=== PATIENT | female | born 1980 | race Caucasian/White ===

== ENCOUNTER 2020-07-23 09:45 | Inpatient (IN) | payer MEDICARE, MEDICAID ==
[2020-07-23] MEDS ORDERED: Azithromycin 500 MG in Sodium Chloride 0.9% 250 ML IV SCH (10:30)
[2020-07-23] MEDS ORDERED: Lactated Ringers 1,000 ML IV SCH (10:30)
[2020-07-23] MEDS ORDERED: cefTRIAXone 1 GM in Sodium Chloride 0.9% 50 ML IV ONE (10:35)
--- NOTE | 2020-07-23 10:40 | EDM.PDOC ---
ED HPI GENERAL MEDICAL PROBLEM - General Chief Complaint: Respiratory Problem Stated Complaint: SOB Time Seen by Provider: 07/23/20 10:18 Source of Information: Reports: Patient, Old Records, RN Notes Reviewed History Limitations: Reports: No Limitations - History of Present Illness INITIAL COMMENTS - FREE TEXT/NARRATIVE: 40-year-old female presents emergency department today complaint of shortness of breath, she has been feeling short of breath the last couple days however the last 24 hours has gotten particularly worse she is felt feverish and chilled at home she is a member of a [employer] and she was recently tested for COVID yesterday by a virtual visit unfortunately those results are not available. She states over the last 24 hours feeling more short of breath she did not use oxygen at home no cough no sputum production does have a history of pneumonia she denies any exposures does have some chest pain - Related Data Allergies Allergy/AdvReac Type Severity Reaction Status Date / Time divalproex sodium Allergy Other Verified 07/23/20 10:24 [From Depakote] haloperidol Allergy Other Verified 07/23/20 10:24 pork derived (porcine) Allergy Other Verified 07/23/20 10:24 risperidone Allergy Other Verified 07/23/20 10:24 Sulfa (Sulfonamide Allergy Cannot Verified 07/23/20 10:24 Antibiotics) Remember Home Meds: Home Meds Citalopram Hydrobromide [Celexa] 40 mg PO DAILY 07/23/20 [History] Gabapentin [Neurontin] 400 mg PO TID 07/23/20 [History] Ibuprofen 800 mg PO BID 07/23/20 [History] LORazepam [Ativan] 1 mg PO TID 07/23/20 [History] OLANZapine [Olanzapine] 15 mg PO DAILY 07/23/20 [History] Omeprazole 20 mg PO DAILY 07/23/20 [History] cloZAPine [Clozapine] 200 mg PO BEDTIME 07/23/20 [History] estradioL [Estradiol] 0.5 mg PO DAILY 07/23/20 [History] metFORMIN [Glucophage XR] 750 mg PO DAILY 07/23/20 [History] rOPINIRole [Requip] 1 mg PO BEDTIME 07/23/20 [History] tiZANidine 2 mg PO TID 07/23/20 [History] Past Medical History Cardiovascular History: Reports: High Cholesterol, Hypertension Respiratory History: Reports: Pneumonia, Recurrent Other Respiratory History: hospitalized with AFR11/2019 Gastrointestinal History: Reports: GERD Musculoskeletal History: Reports: Other (See Below) Other Musculoskeletal History: plantar fascitis. chronic left shoulder painchronic right knee pain Psychiatric History: Reports: Depression, Schizophrenia, Other (See Below) Other Psychiatric History: catatonia. insomnia Endocrine/Metabolic History: Reports: Diabetes, Type II, Obesity/BMI 30+ Hematologic History: Reports: Other (See Below) Other Hematologic History: vitamin D deficency Dermatologic History: Reports: Other (See Below) Other Dermatologic History: rash - Infectious Disease History Infectious Disease History: Reports: None - Past Surgical History Head Surgeries/Procedures: Reports: None Respiratory Surgical History: Reports: Other (See Below) Other Respiratory Surgeries/Procedures: bronchoscopy Female Surgical History: Reports: Hysterectomy Musculoskeletal Surgical History: Reports: Arthroscopic Knee Social & Family History - Tobacco Use Smoking Status *Q: Former Smoker ED ROS GENERAL - Review of Systems Review Of Systems: See Below Constitutional: Reports: Fever, Chills, Weakness HEENT: Reports: No Symptoms Respiratory: Reports: Shortness of Breath, Pleuritic Chest Pain. Denies: Cough, Sputum Cardiovascular: Reports: Chest Pain, Dyspnea on Exertion GI/Abdominal: Reports: No Symptoms : Reports: No Symptoms Musculoskeletal: Reports: No Symptoms Skin: Reports: No Symptoms Neurological: Reports: No Symptoms ED EXAM, GENERAL - Physical Exam Exam: See Below Exam Limited By: No Limitations General Appearance: Alert, Mild Distress Eye Exam: Bilateral Eye: Normal Inspection Throat/Mouth: No Airway Compromise, Other (Mucosa is dry) Head: Atraumatic, Normocephalic Neck: Normal Inspection, Supple, Non-Tender, Full Range of Motion Respiratory/Chest: No Respiratory Distress, Decreased Breath Sounds, Rhonchi (Left side) Cardiovascular: No Murmur, Tachycardia GI/Abdominal: Soft, Non-Tender Extremities: No Pedal Edema Course - Vital Signs Last Recorded V/S: Last Vital Signs Temp 99.0 F 07/23/20 10:10 Pulse 102 H 07/23/20 11:46 Resp 20 07/23/20 11:46 BP 127/85 07/23/20 11:46 Pulse Ox 89 L 07/23/20 11:46 - Orders/Labs/Meds Orders: Active Orders 24 hr Category Date Time Status Vital Signs [RC] Q1H Care 07/23/20 10:30 Active CULTURE BLOOD [BC] Urgent Lab 07/23/20 10:30 Ordered CULTURE BLOOD [BC] Urgent Lab 07/23/20 11:20 Received UA W/MICROSCOPIC [URIN] Urgent Lab 07/23/20 10:29 Ordered Azithromycin [Zithromax] 500 mg Med 07/23/20 10:30 Active Sodium Chloride 0.9% [Normal Saline] 250 ml IV Q24H Iopamidol [Isovue-370 (76%)] Med 07/23/20 12:30 Active 100 ml IV . DIRECTED Sodium Chloride 0.9% [Normal Saline] 1,000 ml Med 07/23/20 10:45 Active IV ASDIRECTED Sodium Chloride 0.9% [Saline Flush] Med 07/23/20 12:20 Active 10 ml FLUSH ONETIME PRN Blood Culture x2 Reflex Set [OM.PC] Urgent Oth 07/23/20 10:30 Ordered Isolation [COMM] Routine Oth 07/23/20 10:34 Ordered Isolation [COMM] Stat Oth 07/23/20 10:30 Ordered Medication Orders Azithromycin 500 mg/ Sodium (Chloride) 250 mls @ 250 mls/hr IV Q24H [facility] Last Admin: 07/23/20 11:42 Dose: 250 mls/hr Documented by: PREILOR Sodium Chloride (Normal Saline) 1,000 mls @ 999 mls/hr IV ASDIRECTED [facility] Last Admin: 07/23/20 11:41 Dose: 999 mls/hr Documented by: PREILOR Iopamidol (Isovue-370 (76%)) 100 ml IV . DIRECTED [facility] Last Admin: 07/23/20 14:00 Dose: 100 ml Documented by: MALIA Sodium Chloride (Saline Flush) 10 ml FLUSH ONETIME PRN PRN Reason: PER RADIOLOGY PROTOCOL Last Admin: 07/23/20 14:00 Dose: 10 ml Documented by: MALIA Labs: Laboratory Tests 07/23/20 07/23/20 07/23/20 Range/Units 10:55 10:58 10:58 WBC (4.5-11.0) K/uL RBC (3.30-5.50) M/uL Hgb (12.0-15.0) g/dL Hct (36.0-48.0) % MCV (80-98) fL MCH (27-31) pg MCHC (32-36) % Plt Count (150-400) K/uL Neut % (Auto) (36-66) % Lymph % (Auto) (24-44) % [place] % (Auto) (2-6) % Eos % (Auto) (2-4) % Baso % (Auto) (0-1) % ABG Hemoglobin (12.0-16.0) g/dL ABG Oxyhemoglobin % ABG Carboxyhemoglobin (0.0-1.6) % ABG Methemoglobin % VBG pH (7.350-7.450) VBG pCO2 mm/Hg VBG pO2 mm/Hg VBG HCO3 mmol/L VBG Total CO2 mmol/L VBG O2 Saturation VBG O2 Content %vol VBG Base Excess mm/L O2 Delivery Device Sodium (140-148) mmol/L Potassium (3.6-5.2) mmol/L Chloride (100-108) mmol/L Carbon Dioxide (21-32) mmol/L Anion Gap (5.0-14.0) mmol/L BUN (7-18) mg/dL Creatinine (0.6-1.0) mg/dL Est Cr Clr Drug Dosing mL/min Estimated GFR (MDRD) (>60) Glucose (74-106) mg/dL Lactic Acid (0.4-2.0) mmol/L Calcium (8.5-10.1) mg/dL Phosphorus 2.6 (2.5-4.9) mg/dL Magnesium 1.8 (1.8-2.4) mg/dL Total Bilirubin (0.2-1.0) mg/dL AST (15-37) U/L ALT (12-78) U/L Alkaline Phosphatase (46-116) U/L Lactate Dehydrogenase 314 H (82-234) U/L Troponin I (0.000-0.056) ng/mL C-Reactive Protein (0.0-0.3) mg/dL Total Protein (6.4-8.2) g/dL Albumin (3.4-5.0) g/dL Globulin (2.3-3.5) g/dL Albumin/Globulin Ratio (1.2-2.2) Procalcitonin ng/mL SARS-CoV-2 RNA (BAILEY) Negative (NEGATIVE) 07/23/20 07/23/20 07/23/20 Range/Units 10:58 10:58 10:58 WBC 18.4 H (4.5-11.0) K/uL RBC 4.41 (3.30-5.50) M/uL Hgb 13.5 (12.0-15.0) g/dL Hct 41.2 (36.0-48.0) % MCV 93 (80-98) fL MCH 31 (27-31) pg MCHC 33 (32-36) % Plt Count 317 (150-400) K/uL Neut % (Auto) 88 H (36-66) % Lymph % (Auto) 7 L (24-44) % [place] % (Auto) 5 (2-6) % Eos % (Auto) 1 L (2-4) % Baso % (Auto) 0 (0-1) % ABG Hemoglobin (12.0-16.0) g/dL ABG Oxyhemoglobin % ABG Carboxyhemoglobin (0.0-1.6) % ABG Methemoglobin % VBG pH (7.350-7.450) VBG pCO2 mm/Hg VBG pO2 mm/Hg VBG HCO3 mmol/L VBG Total CO2 mmol/L VBG O2 Saturation VBG O2 Content %vol VBG Base Excess mm/L O2 Delivery Device Sodium 140 (140-148) mmol/L Potassium 4.6 (3.6-5.2) mmol/L Chloride 102 (100-108) mmol/L Carbon Dioxide 25 (21-32) mmol/L Anion Gap 12.8 (5.0-14.0) mmol/L BUN 10 (7-18) mg/dL Creatinine 0.9 (0.6-1.0) mg/dL Est Cr Clr Drug Dosing 73.27 mL/min Estimated GFR (MDRD) > 60 (>60) Glucose 174 H (74-106) mg/dL Lactic Acid 2.6 H (0.4-2.0) mmol/L Calcium 8.9 (8.5-10.1) mg/dL Phosphorus (2.5-4.9) mg/dL Magnesium (1.8-2.4) mg/dL Total Bilirubin 0.5 (0.2-1.0) mg/dL AST 29 (15-37) U/L ALT 34 (12-78) U/L Alkaline Phosphatase 109 (46-116) U/L Lactate Dehydrogenase (82-234) U/L Troponin I (0.000-0.056) ng/mL C-Reactive Protein 5.66 H (0.0-0.3) mg/dL Total Protein 6.5 (6.4-8.2) g/dL Albumin 3.5 (3.4-5.0) g/dL Globulin 3.0 (2.3-3.5) g/dL Albumin/Globulin Ratio 1.2 (1.2-2.2) Procalcitonin ng/mL SARS-CoV-2 RNA (BAILEY) (NEGATIVE) 07/23/20 07/23/20 07/23/20 Range/Units 10:58 10:58 11:24 WBC (4.5-11.0) K/uL RBC (3.30-5.50) M/uL Hgb (12.0-15.0) g/dL Hct (36.0-48.0) % MCV (80-98) fL MCH (27-31) pg MCHC (32-36) % Plt Count (150-400) K/uL Neut % (Auto) (36-66) % Lymph % (Auto) (24-44) % [place] % (Auto) (2-6) % Eos % (Auto) (2-4) % Baso % (Auto) (0-1) % ABG Hemoglobin 14.1 (12.0-16.0) g/dL ABG Oxyhemoglobin 84.2 % ABG Carboxyhemoglobin 3.0 H (0.0-1.6) % ABG Methemoglobin 1.2 % VBG pH 7.397 (7.350-7.450) VBG pCO2 45.7 mm/Hg VBG pO2 55.0 mm/Hg VBG HCO3 27.6 mmol/L VBG Total CO2 24.3 mmol/L VBG O2 Saturation 87.9 VBG O2 Content 16.6 %vol VBG Base Excess 2.6 mm/L O2 Delivery Device Nasal cannula Sodium (140-148) mmol/L Potassium (3.6-5.2) mmol/L Chloride (100-108) mmol/L Carbon Dioxide (21-32) mmol/L Anion Gap (5.0-14.0) mmol/L BUN (7-18) mg/dL Creatinine (0.6-1.0) mg/dL Est Cr Clr Drug Dosing mL/min Estimated GFR (MDRD) (>60) Glucose (74-106) mg/dL Lactic Acid (0.4-2.0) mmol/L Calcium (8.5-10.1) mg/dL Phosphorus (2.5-4.9) mg/dL Magnesium (1.8-2.4) mg/dL Total Bilirubin (0.2-1.0) mg/dL AST (15-37) U/L ALT (12-78) U/L Alkaline Phosphatase (46-116) U/L Lactate Dehydrogenase (82-234) U/L Troponin I < 0.017 (0.000-0.056) ng/mL C-Reactive Protein (0.0-0.3) mg/dL Total Protein (6.4-8.2) g/dL Albumin (3.4-5.0) g/dL Globulin (2.3-3.5) g/dL Albumin/Globulin Ratio (1.2-2.2) Procalcitonin < 0.05 ng/mL SARS-CoV-2 RNA (BAILEY) (NEGATIVE) Meds: Medications Generic Name Dose Route Start Last Admin Trade Name Freq PRN Reason Stop Dose Admin Azithromycin 500 mg/ Sodium 250 mls @ 250 mls/hr 07/23/20 10:30 07/23/20 11:42 Chloride IV 250 mls/hr Q24H LESLEY Administration Sodium Chloride 1,000 mls @ 999 mls/hr 07/23/20 10:45 07/23/20 11:41 Normal Saline IV 999 mls/hr ASDIRECTED LESLEY Administration Iopamidol 100 ml 07/23/20 12:30 07/23/20 14:00 Isovue-370 (76%) IV 100 ml . DIRECTED LESLEY Administration Sodium Chloride 10 ml 07/23/20 12:20 07/23/20 14:00 Saline Flush FLUSH 10 ml ONETIME PRN Administration PER RADIOLOGY PROTOCOL Discontinued Medications Generic Name Dose Route Start Last Admin Trade Name Freq PRN Reason Stop Dose Admin Lactated Ringer's 1,000 mls @ 999 mls/hr 07/23/20 10:30 Ringers, Lactated IV ASDIRECTED LESLEY Ceftriaxone Sodium 1 gm/ 50 mls @ 100 mls/hr 07/23/20 10:35 07/23/20 11:43 Sodium Chloride IV 07/23/20 11:04 100 mls/hr ONETIME ONE Administration Sodium Chloride 100 mls @ 3 mls/sec 07/23/20 12:20 07/23/20 14:00 Normal Saline IV 07/23/20 12:21 3 mls/sec ONETIME ONE Administration Departure - Departure Time of Disposition: 14:42 Disposition: Admitted As Inpatient 64 Condition: Fair Clinical Impression: Pneumonia Qualifiers: Pneumonia type: due to unspecified organism Laterality: bilateral Lung location: lower lobe of lung Qualified Code(s): J18.9 - Pneumonia, unspecified organism - Discharge Information Referrals: Crystal Loza MD [Primary Care Provider] - Forms: ED Department Discharge Sepsis Event Note (ED) - Evaluation Sepsis Screening Result: Possible Sepsis Risk - Focused Exam Vital Signs: Vital Signs Temp Pulse Resp BP Pulse Ox 07/23/20 11:46 102 H 20 127/85 89 L 07/23/20 10:30 104 H 22 H 131/92 H 92 L 07/23/20 10:10 99.0 F 116 H 22 H 139/91 H 84 L - My Orders Last 24 Hours: My Active Orders 07/23/20 10:29 UA W/MICROSCOPIC [URIN] Urgent 07/23/20 10:30 Vital Signs [RC] Q1H CULTURE BLOOD [BC] Urgent Azithromycin [Zithromax] 500 mg Sodium Chloride 0.9% [Normal Saline] 250 ml IV Q24H Blood Culture x2 Reflex Set [OM.PC] Urgent Isolation [COMM] Stat 07/23/20 10:34 Isolation [COMM] Routine 07/23/20 10:45 Sodium Chloride 0.9% [Normal Saline] 1,000 ml IV ASDIRECTED 07/23/20 11:20 CULTURE BLOOD [BC] Urgent 07/23/20 12:20 Sodium Chloride 0.9% [Saline Flush] 10 ml FLUSH ONETIME PRN 07/23/20 12:30 Iopamidol [Isovue-370 (76%)] 100 ml IV . DIRECTED - Assessment/Plan Last 24 Hours: My Active Orders 07/23/20 10:29 UA W/MICROSCOPIC [URIN] Urgent 07/23/20 10:30 Vital Signs [RC] Q1H CULTURE BLOOD [BC] Urgent Azithromycin [Zithromax] 500 mg Sodium Chloride 0.9% [Normal Saline] 250 ml IV Q24H Blood Culture x2 Reflex Set [OM.PC] Urgent Isolation [COMM] Stat 07/23/20 10:34 Isolation [COMM] Routine 07/23/20 10:45 Sodium Chloride 0.9% [Normal Saline] 1,000 ml IV ASDIRECTED 07/23/20 11:20 CULTURE BLOOD [BC] Urgent 07/23/20 12:20 Sodium Chloride 0.9% [Saline Flush] 10 ml FLUSH ONETIME PRN 07/23/20 12:30 Iopamidol [Isovue-370 (76%)] 100 ml IV . DIRECTED Plan: Assessment Acuity = acute Site and laterality = bilateral community-acquired pneumonia Etiology = probable bacterial cause Manifestations = hypoxia Location of injury = Home Lab values = WBC elevated 18.4 consistent leukocytosis, venous pH 7.39 venous CO2 40 5.7V PO2 55 venous bicarb 27.1 lactic acid normal 2.6 LDH slightly elevated 314 troponin was negative CRP elevated 5.66 procalcitonin was negative COVID was negative influenza a and B- blood cultures pending CT scan describes ammonia above Plan Call discussed case hospitalist on-call at 1430 currently agreed to come and evaluate the patient emergency department for admission, thus far she has been given 1 g Rocephin 1 L fluids and 500 mg azithromycin This note was dictated using [employer] voice recognition software please call with any questions on syntax or grammar.
[2020-07-23] MEDS ORDERED: Sodium Chloride 0.9% 1,000 ML IV SCH (10:45)
[2020-07-23] MEDS ORDERED: Sodium Chloride 0.9% 10 ML Syringe FLUSH PRN (12:20)
[2020-07-23] MEDS ORDERED: Sodium Chloride 0.9% 100 ML IV ONE (12:20)
[2020-07-23] MEDS ORDERED: Iopamidol 755 Mg/ML 100 ML Bottle IV SCH (12:30)
--- NOTE | 2020-07-23 12:31 | CR ---
CHEST: Portable 07/23/2020 at 11:03 AM CLINICAL HISTORY:Hypoxia COMPARISON:None FINDINGS: Heart size pulmonary vascularity is normal. There is patchy density in both infrahilar regions left greater than right. This is suspect for pneumonia. There are no effusions Impression: Patchy density in both infrahilar regions left greater than right is suspect for bilateral pneumonia.
--- NOTE | 2020-07-23 14:14 | CT ---
Ang Chest CLINICAL HISTORY: Hypoxia TECHNIQUE: Thin section axial contiguous tomographic sections were taken through the chest after bolus IV iodinated contrast administration. Coronal and sagittal images were reconstructed. Auto dosage reduction and iterative reconstruction techniques employed. FINDINGS: Resolution is somewhat diminished due to patient body habitus. There are some groundglass opacities in both upper lobes right greater than left. There is some patchy infiltrate in the left lower lobe. There are no filling defects in the main pulmonary arteries or primary branching arteries. The smaller branching vessels are obscured by artifact. There is no disc greet the vessel cut off. Aorta is free of aneurysm or dissection No mediastinal mass or suspicious lymphadenopathy is identified. IMPRESSION: Limited study due to beam attenuation artifact Bilateral upper lobe groundglass opacities suggest pneumonitis Patchy bilateral lower lobe opacities suggest pneumonia. This is greater on the left Viral or atypical pneumonia is not excluded
--- NOTE | 2020-07-23 15:24 | PCM.HP.2 ---
H&P History of Present Illness - General Date of Service: 07/23/20 Admit Problem/Dx: Admission Diagnosis/Problem Admission Diagnosis/Problem Pneumonia Source of Information: Patient, Provider, RN Notes Reviewed History Limitations: Reports: No Limitations - History of Present Illness Initial Comments - Free Text/Narative: Ms. Shane is a 40-year-old woman who was admitted through the emergency department with shortness of breath weakness and fever secondary to bilateral pn eumonia with sepsis and hypoxia. She has not felt well over the past 4 days with progressive shortness of breath and weakness. She denies much in the way of cough, fever, or chills. She was seen and evaluated in the clinic yesterday, and was noted to have no infiltrates. COVID test was obtained during the clinic visit but results are not yet available. She returned home but experienced further shortness of breath and presented to the emergency department this morning. Chest x-ray suggested infiltrates and she was found to be hypoxic with an elevated white count. CT scan of the chest with contrast showed no evidence of pulmonary emboli but did identify bilateral infiltrates. [place] to have sepsis with tachycardia, modest elevation in lactic acid level, and elevated white blood cell count. She has been started on appropriate antibiotics in the emergency department and blood cultures have been obtained. She is also been given vigorous IV fluid replacement per sepsis protocol. She was found to be hypoxic and is currently on supplemental oxygen at 4 L/min via nasal cannula with adequate oxygenation. - Related Data Allergies/Adverse Reactions: Allergies Allergy/AdvReac Type Severity Reaction Status Date / Time divalproex sodium Allergy Other Verified 07/23/20 10:24 [From Depakote] haloperidol Allergy Other Verified 07/23/20 10:24 pork derived (porcine) Allergy Other Verified 07/23/20 10:24 risperidone Allergy Other Verified 07/23/20 10:24 Sulfa (Sulfonamide Allergy Cannot Verified 07/23/20 10:24 Antibiotics) Remember Home Medications: Home Meds Citalopram Hydrobromide [Celexa] 40 mg PO DAILY 07/23/20 [History] Gabapentin [Neurontin] 400 mg PO TID 07/23/20 [History] Ibuprofen 800 mg PO BID 07/23/20 [History] LORazepam [Ativan] 1 mg PO TID 07/23/20 [History] OLANZapine [Olanzapine] 15 mg PO DAILY 07/23/20 [History] Omeprazole 20 mg PO DAILY 07/23/20 [History] cloZAPine [Clozapine] 200 mg PO BEDTIME 07/23/20 [History] estradioL [Estradiol] 0.5 mg PO DAILY 07/23/20 [History] metFORMIN [Glucophage XR] 750 mg PO DAILY 07/23/20 [History] rOPINIRole [Requip] 1 mg PO BEDTIME 07/23/20 [History] tiZANidine 2 mg PO TID 07/23/20 [History] Past Medical History Cardiovascular History: Reports: High Cholesterol, Hypertension Respiratory History: Reports: Pneumonia, Recurrent Other Respiratory History: hospitalized with [id number] Gastrointestinal History: Reports: GERD Musculoskeletal History: Reports: Other (See Below) Other Musculoskeletal History: plantar fascitis. chronic left shoulder painchronic right knee pain Psychiatric History: Reports: Depression, Schizophrenia, Other (See Below) Other Psychiatric History: catatonia. insomnia Endocrine/Metabolic History: Reports: Diabetes, Type II, Obesity/BMI 30+ Hematologic History: Reports: Other (See Below) Other Hematologic History: vitamin D deficency Dermatologic History: Reports: Other (See Below) Other Dermatologic History: rash - Infectious Disease History Infectious Disease History: Reports: None - Past Surgical History Head Surgeries/Procedures: Reports: None Respiratory Surgical History: Reports: Other (See Below) Other Respiratory Surgeries/Procedures: bronchoscopy Female Surgical History: Reports: Hysterectomy Musculoskeletal Surgical History: Reports: Arthroscopic Knee Social & Family History - Tobacco Use Smoking Status *Q: Former Smoker Used Tobacco, but Quit: Yes Month/Year Tobacco Last Used: 15 years ago - Caffeine Use Caffeine Use: Reports: Soda - Recreational Drug Use Recreational Drug Use: No H&P Review of Systems - Review of Systems: Review Of Systems: See Below General: Reports: Malaise, Weakness. Denies: Fever, Chills HEENT: Reports: No Symptoms Pulmonary: Reports: Shortness of Breath. Denies: Wheezing, Pleuritic Chest Pain, Cough, Sputum, Hemoptysis Cardiovascular: Reports: Dyspnea on Exertion, Lightheadedness. Denies: Chest Pain, Palpitations, Orthopnea, PND, Edema Gastrointestinal: Reports: No Symptoms Genitourinary: Reports: Abnormal Menses Musculoskeletal: Reports: No Symptoms Skin: Reports: No Symptoms Psychiatric: Reports: No Symptoms Neurological: Reports: No Symptoms Hematologic/Lymphatic: Reports: No Symptoms Immunologic: Reports: No Symptoms Exam - Exam Exam: See Below - Vital Signs Vital Signs: Last Vital Signs Temp 208.4 F H 07/23/20 14:30 Pulse 107 H 07/23/20 14:30 Resp 18 07/23/20 14:30 BP 144/96 H 07/23/20 14:30 Pulse Ox 92 L 07/23/20 14:30 Weight: 272 lb - Exam Quality Assessment: Supplemental Oxygen, DVT Prophylaxis General: Alert, Oriented, Cooperative, Moderate Distress HEENT: Conjunctiva Clear, Hearing Intact, Mucosa Moist & [place], Normal Nasal Septum, Posterior Pharynx Clear, Pupils Equal Neck: Supple, Trachea Midline, +2 Carotid Pulse wo Bruit Lungs: Clear to Auscultation. No: Crackles, Rales, Rhonchi, Wheezing Cardiovascular: Regular Rhythm, Normal S1, Normal S2, Tachycardia. No: Systolic Murmur, Diastolic Murmur GI/Abdominal Exam: Soft, Non-Tender, No Organomegaly, No Distention Back Exam: Normal Inspection, Full Range of Motion Extremities: Non-Tender, No Pedal Edema Skin: Warm, Dry, Intact Neurological: Cranial Nerves Intact, Strength Equal Bilateral, Normal Speech, Normal Tone, Sensation Intact. No: Focal Deficit Neuro Extensive - Mental Status: Alert, Oriented x3, Normal Mood/Affect, Normal Cognition, Memory Intact - Patient Data Lab Results Last 24 hrs: Laboratory Results - last 24 hr 07/23/20 07/23/20 07/23/20 Range/Units 10:29 10:55 10:58 WBC (4.5-11.0) K/uL RBC (3.30-5.50) M/uL Hgb (12.0-15.0) g/dL Hct (36.0-48.0) % MCV (80-98) fL MCH (27-31) pg MCHC (32-36) % Plt Count (150-400) K/uL Neut % (Auto) (36-66) % Lymph % (Auto) (24-44) % Simpson % (Auto) (2-6) % Eos % (Auto) (2-4) % Baso % (Auto) (0-1) % ABG Hemoglobin (12.0-16.0) g/dL ABG Oxyhemoglobin % ABG Carboxyhemoglobin (0.0-1.6) % ABG Methemoglobin % VBG pH (7.350-7.450) VBG pCO2 mm/Hg VBG pO2 mm/Hg VBG HCO3 mmol/L VBG Total CO2 mmol/L VBG O2 Saturation VBG O2 Content %vol VBG Base Excess mm/L O2 Delivery Device Sodium (140-148) mmol/L Potassium (3.6-5.2) mmol/L Chloride (100-108) mmol/L Carbon Dioxide (21-32) mmol/L Anion Gap (5.0-14.0) mmol/L BUN (7-18) mg/dL Creatinine (0.6-1.0) mg/dL Est Cr Clr Drug Dosing mL/min Estimated GFR (MDRD) (>60) Glucose (74-106) mg/dL Lactic Acid (0.4-2.0) mmol/L Calcium (8.5-10.1) mg/dL Phosphorus 2.6 (2.5-4.9) mg/dL Magnesium 1.8 (1.8-2.4) mg/dL Total Bilirubin (0.2-1.0) mg/dL AST (15-37) U/L ALT (12-78) U/L Alkaline Phosphatase (46-116) U/L Lactate Dehydrogenase (82-234) U/L Troponin I (0.000-0.056) ng/mL C-Reactive Protein (0.0-0.3) mg/dL Total Protein (6.4-8.2) g/dL Albumin (3.4-5.0) g/dL Globulin (2.3-3.5) g/dL Albumin/Globulin Ratio (1.2-2.2) Procalcitonin ng/mL Urine Color Yellow (YELLOW) Urine Appearance Clear (CLEAR) Urine pH 7.0 (5.0-8.0) Ur Specific [place] 1.020 (1.008-1.030) Urine Protein Negative (NEGATIVE) mg/dL Urine Glucose (UA) 100 H (NEGATIVE) mg/dL Urine Ketones Negative (NEGATIVE) mg/dL Urine Occult Blood Negative (NEGATIVE) Urine Nitrite Negative (NEGATIVE) Urine Bilirubin Negative (NEGATIVE) Urine Urobilinogen 1.0 (0.2-1.0) EU/dL Ur Leukocyte Esterase Negative (NEGATIVE) Urine RBC 0-5 (0-5) Urine WBC 0-5 (0-5) Ur Epithelial Cells Rare Amorphous Sediment Rare Urine Bacteria Rare Urine Mucus Not seen SARS-CoV-2 RNA (BAILEY) Negative (NEGATIVE) 07/23/20 07/23/20 07/23/20 Range/Units 10:58 10:58 10:58 WBC 18.4 H (4.5-11.0) K/uL RBC 4.41 (3.30-5.50) M/uL Hgb 13.5 (12.0-15.0) g/dL Hct 41.2 (36.0-48.0) % MCV 93 (80-98) fL MCH 31 (27-31) pg MCHC 33 (32-36) % Plt Count 317 (150-400) K/uL Neut % (Auto) 88 H (36-66) % Lymph % (Auto) 7 L (24-44) % Simpson % (Auto) 5 (2-6) % Eos % (Auto) 1 L (2-4) % Baso % (Auto) 0 (0-1) % ABG Hemoglobin (12.0-16.0) g/dL ABG Oxyhemoglobin % ABG Carboxyhemoglobin (0.0-1.6) % ABG Methemoglobin % VBG pH (7.350-7.450) VBG pCO2 mm/Hg VBG pO2 mm/Hg VBG HCO3 mmol/L VBG Total CO2 mmol/L VBG O2 Saturation VBG O2 Content %vol VBG Base Excess mm/L O2 Delivery Device Sodium 140 (140-148) mmol/L Potassium 4.6 (3.6-5.2) mmol/L Chloride 102 (100-108) mmol/L Carbon Dioxide 25 (21-32) mmol/L Anion Gap 12.8 (5.0-14.0) mmol/L BUN 10 (7-18) mg/dL Creatinine 0.9 (0.6-1.0) mg/dL Est Cr Clr Drug Dosing 73.27 mL/min Estimated GFR (MDRD) > 60 (>60) Glucose 174 H (74-106) mg/dL Lactic Acid (0.4-2.0) mmol/L Calcium 8.9 (8.5-10.1) mg/dL Phosphorus (2.5-4.9) mg/dL Magnesium (1.8-2.4) mg/dL Total Bilirubin 0.5 (0.2-1.0) mg/dL AST 29 (15-37) U/L ALT 34 (12-78) U/L Alkaline Phosphatase 109 (46-116) U/L Lactate Dehydrogenase 314 H (82-234) U/L Troponin I (0.000-0.056) ng/mL C-Reactive Protein 5.66 H (0.0-0.3) mg/dL Total Protein 6.5 (6.4-8.2) g/dL Albumin 3.5 (3.4-5.0) g/dL Globulin 3.0 (2.3-3.5) g/dL Albumin/Globulin Ratio 1.2 (1.2-2.2) Procalcitonin ng/mL Urine Color (YELLOW) Urine Appearance (CLEAR) Urine pH (5.0-8.0) Ur Specific [place] (1.008-1.030) Urine Protein (NEGATIVE) mg/dL Urine Glucose (UA) (NEGATIVE) mg/dL Urine Ketones (NEGATIVE) mg/dL Urine Occult Blood (NEGATIVE) Urine Nitrite (NEGATIVE) Urine Bilirubin (NEGATIVE) Urine Urobilinogen (0.2-1.0) EU/dL Ur Leukocyte Esterase (NEGATIVE) Urine RBC (0-5) Urine WBC (0-5) Ur Epithelial Cells Amorphous Sediment Urine Bacteria Urine Mucus SARS-CoV-2 RNA (BAILEY) (NEGATIVE) 07/23/20 07/23/20 07/23/20 Range/Units 10:58 10:58 10:58 WBC (4.5-11.0) K/uL RBC (3.30-5.50) M/uL Hgb (12.0-15.0) g/dL Hct (36.0-48.0) % MCV (80-98) fL MCH (27-31) pg MCHC (32-36) % Plt Count (150-400) K/uL Neut % (Auto) (36-66) % Lymph % (Auto) (24-44) % Simpson % (Auto) (2-6) % Eos % (Auto) (2-4) % Baso % (Auto) (0-1) % ABG Hemoglobin (12.0-16.0) g/dL ABG Oxyhemoglobin % ABG Carboxyhemoglobin (0.0-1.6) % ABG Methemoglobin % VBG pH (7.350-7.450) VBG pCO2 mm/Hg VBG pO2 mm/Hg VBG HCO3 mmol/L VBG Total CO2 mmol/L VBG O2 Saturation VBG O2 Content %vol VBG Base Excess mm/L O2 Delivery Device Sodium (140-148) mmol/L Potassium (3.6-5.2) mmol/L Chloride (100-108) mmol/L Carbon Dioxide (21-32) mmol/L Anion Gap (5.0-14.0) mmol/L BUN (7-18) mg/dL Creatinine (0.6-1.0) mg/dL Est Cr Clr Drug Dosing mL/min Estimated GFR (MDRD) (>60) Glucose (74-106) mg/dL Lactic Acid 2.6 H (0.4-2.0) mmol/L Calcium (8.5-10.1) mg/dL Phosphorus (2.5-4.9) mg/dL Magnesium (1.8-2.4) mg/dL Total Bilirubin (0.2-1.0) mg/dL AST (15-37) U/L ALT (12-78) U/L Alkaline Phosphatase (46-116) U/L Lactate Dehydrogenase (82-234) U/L Troponin I < 0.017 (0.000-0.056) ng/mL C-Reactive Protein (0.0-0.3) mg/dL Total Protein (6.4-8.2) g/dL Albumin (3.4-5.0) g/dL Globulin (2.3-3.5) g/dL Albumin/Globulin Ratio (1.2-2.2) Procalcitonin < 0.05 ng/mL Urine Color (YELLOW) Urine Appearance (CLEAR) Urine pH (5.0-8.0) Ur Specific [place] (1.008-1.030) Urine Protein (NEGATIVE) mg/dL Urine Glucose (UA) (NEGATIVE) mg/dL Urine Ketones (NEGATIVE) mg/dL Urine Occult Blood (NEGATIVE) Urine Nitrite (NEGATIVE) Urine Bilirubin (NEGATIVE) Urine Urobilinogen (0.2-1.0) EU/dL Ur Leukocyte Esterase (NEGATIVE) Urine RBC (0-5) Urine WBC (0-5) Ur Epithelial Cells Amorphous Sediment Urine Bacteria Urine Mucus SARS-CoV-2 RNA ([place]) (NEGATIVE) 07/23/20 Range/Units 11:24 WBC (4.5-11.0) K/uL RBC (3.30-5.50) M/uL Hgb (12.0-15.0) g/dL Hct (36.0-48.0) % MCV (80-98) fL MCH (27-31) pg MCHC (32-36) % Plt Count (150-400) K/uL Neut % (Auto) (36-66) % Lymph % (Auto) (24-44) % Simpson % (Auto) (2-6) % Eos % (Auto) (2-4) % Baso % (Auto) (0-1) % ABG Hemoglobin 14.1 (12.0-16.0) g/dL ABG Oxyhemoglobin 84.2 % ABG Carboxyhemoglobin 3.0 H (0.0-1.6) % ABG Methemoglobin 1.2 % VBG pH 7.397 (7.350-7.450) VBG pCO2 45.7 mm/Hg VBG pO2 55.0 mm/Hg VBG HCO3 27.6 mmol/L VBG Total CO2 24.3 mmol/L VBG O2 Saturation 87.9 VBG O2 Content 16.6 %vol VBG Base Excess 2.6 mm/L O2 Delivery Device Nasal cannula Sodium (140-148) mmol/L Potassium (3.6-5.2) mmol/L Chloride (100-108) mmol/L Carbon Dioxide (21-32) mmol/L Anion Gap (5.0-14.0) mmol/L BUN (7-18) mg/dL Creatinine (0.6-1.0) mg/dL Est Cr Clr Drug Dosing mL/min Estimated GFR (MDRD) (>60) Glucose (74-106) mg/dL Lactic Acid (0.4-2.0) mmol/L Calcium (8.5-10.1) mg/dL Phosphorus (2.5-4.9) mg/dL Magnesium (1.8-2.4) mg/dL Total Bilirubin (0.2-1.0) mg/dL AST (15-37) U/L ALT (12-78) U/L Alkaline Phosphatase (46-116) U/L Lactate Dehydrogenase (82-234) U/L Troponin I (0.000-0.056) ng/mL C-Reactive Protein (0.0-0.3) mg/dL Total Protein (6.4-8.2) g/dL Albumin (3.4-5.0) g/dL Globulin (2.3-3.5) g/dL Albumin/Globulin Ratio (1.2-2.2) Procalcitonin ng/mL Urine Color (YELLOW) Urine Appearance (CLEAR) Urine pH (5.0-8.0) Ur Specific [place] (1.008-1.030) Urine Protein (NEGATIVE) mg/dL Urine Glucose (UA) (NEGATIVE) mg/dL Urine Ketones (NEGATIVE) mg/dL Urine Occult Blood (NEGATIVE) Urine Nitrite (NEGATIVE) Urine Bilirubin (NEGATIVE) Urine Urobilinogen (0.2-1.0) EU/dL Ur Leukocyte Esterase (NEGATIVE) Urine RBC (0-5) Urine WBC (0-5) Ur Epithelial Cells Amorphous Sediment Urine Bacteria Urine Mucus SARS-CoV-2 RNA ([facility]ILEY) (NEGATIVE) Result Diagrams: 07/23/20 10:58 07/23/20 10:58 [place] Results Last 24 hrs: Microbiology 07/23/20 10:55 Influenza Type A Antigen Screen - Final Nasal Aspirate, Unspecified NEGATIVE INFLUENZA A VIRUS AG REFERENCE RANGE: NEGATIVE Influenza Type B Antigen Screen - Final NEGATIVE INFLUENZA B VIRUS AG REFERENCE RANGE: NEGATIVE Sepsis Event Note - Evaluation Sepsis Screening Result: Possible Sepsis Risk - Focused Exam Vital Signs: Vital Signs Temp Pulse Resp BP Pulse Ox 07/23/20 14:30 208.4 F H 107 H 18 144/96 H 92 L 07/23/20 12:30 101 H 18 123/83 93 L 07/23/20 11:46 102 H 20 127/85 89 L 07/23/20 10:30 104 H 22 H 131/92 H 92 L 07/23/20 10:10 99.0 F 116 H 22 H 139/91 H 84 L *Q Meaningful Use (ADM) - VTE Risk Assess *Q Each Risk Factor Represents 1 Point: Age 41 - 59 years, Obesity ( BMI > 25 kg/m2), Serious lung disease including pneumonia Total Score 1 Point Risk Factors: 3 Each Risk Factor Represents 2 Points: None Total Score 2 Point Risk Factors: 0 Each Risk Factor Represents 3 Points: None Total Score 3 Point Risk Factors: 0 Each Risk Factor Represents 5 Points: None Total Score 5 Point Risk Factors: 0 Venous Thromboembolism Risk Factor Score *Q: 3 Problem List Initiated/Reviewed/Updated: Yes Orders Last 24hrs: Active Orders 24 hr Category Date Time Status Patient Status Manage Transfer [TRANSFER] Routine ADT 07/23/20 15:10 Active Vital Signs [RC] Q1H Care 07/23/20 10:30 Active CULTURE BLOOD [BC] Urgent Lab 07/23/20 10:30 Ordered CULTURE BLOOD [BC] Urgent Lab 07/23/20 11:20 Received Azithromycin [Zithromax] 500 mg Med 07/23/20 10:30 Active Sodium Chloride 0.9% [Normal Saline] 250 ml IV Q24H Iopamidol [Isovue-370 (76%)] Med 07/23/20 12:30 Active 100 ml IV . DIRECTED Sodium Chloride 0.9% [Normal Saline] 1,000 ml Med 07/23/20 10:45 Active IV ASDIRECTED Sodium Chloride 0.9% [Saline Flush] Med 07/23/20 12:20 Active 10 ml FLUSH ONETIME PRN Blood Culture x2 Reflex Set [OM.PC] Urgent Oth 07/23/20 10:30 Ordered Isolation [COMM] Routine Oth 07/23/20 10:34 Ordered Isolation [COMM] Stat Oth 07/23/20 10:30 Ordered Resuscitation Status Routine Resus Stat 07/23/20 15:13 Ordered Medication Orders Azithromycin 500 mg/ Sodium (Chloride) 250 mls @ 250 mls/hr IV Q24H [facility] Last Admin: 07/23/20 11:42 Dose: 250 mls/hr Documented by: PREILOR Sodium Chloride (Normal Saline) 1,000 mls @ 999 mls/hr IV ASDIRECTED [facility] Last Admin: 07/23/20 11:41 Dose: 999 mls/hr Documented by: PREILOR Iopamidol (Isovue-370 (76%)) 100 ml IV . DIRECTED [facility] Last Admin: 07/23/20 14:00 Dose: 100 ml Documented by: FIEMSAR Sodium Chloride (Saline Flush) 10 ml FLUSH ONETIME PRN PRN Reason: PER RADIOLOGY PROTOCOL Last Admin: 07/23/20 14:00 Dose: 10 ml Documented by: FIEMSAR Assessment/Plan Comment:: ASSESSMENT AND PLAN BILATERAL PNEUMONIA WITH SEPSIS-COVID test obtained in the emergency department is negative. She is hypoxic with evidence of underlying sepsis. Blood cultures are pending, antibiotics initiated in the emergency department with sepsis fluid resuscitation -Admit to ICU -Expanded IV antibiotic coverage given sepsis and respiratory compromise; Zosyn and levofloxacin -IV fluids -Blood cultures pending HYPOXIC RESPIRATORY COMPROMISE-secondary to bilateral pneumonia -Supplemental oxygen as needed -Nebulized albuterol as needed -Consider use of noninvasive positive pressure ventilation if she experiences further respiratory compromise TYPE 2 DIABETES MELLITUS -Hold metformin in light of elevated lactic acid -4 times daily glucometers -Low-dose sliding scale Humalog MAINTENANCE ISSUES -DVT prophylaxis; Lovenox 40 mg subcu daily -GI prophylaxis; not indicated -Welch catheter; not indicated -Nutrition; consistent carbohydrate diet -Nicotine dependence; not required CODE STATUS-FULL CODE ADMISSION STATUS-patient will be admitted to inpatient status, expect at least a 2 night hospital stay for evaluation and management of problems as outlined above. At the time of this admission I do not reasonably expected evaluation and management of this problem will require more than a 96 hour hospital stay. DISPOSITION-anticipate discharge to home after the hospital stay. PRIMARY CARE PROVIDER-Dr. Loza - Mortality Measure Prognosis:: Good
[2020-07-23] MEDS ORDERED: Polyethylene Glycol 3350 Powder 17 GM Packet PO PRN (15:48)
[2020-07-23] MEDS ORDERED: Ondansetron 4 MG/2 ML SDV IV PRN (15:48)
[2020-07-23] MEDS ORDERED: Glucose Gel 15 GM in 37.5 GM Tube PO PRN (15:48)
[2020-07-23] MEDS ORDERED: 50% Dextrose in Water 50 ML Syringe IV PRN (15:48)
[2020-07-23] MEDS ORDERED: OLANZapine 5 MG Tab PO PRN (16:00)
[2020-07-23] MEDS: Acetaminophen 325 MG Tab PO PRN (16:03)
[2020-07-23] MEDS: LORazepam 1 MG Tab PO SCH ×2 (16:14→20:54)
[2020-07-23] MEDS: Albuterol 0.083% 2.5 MG/3 ML Neb Soln NEB PRN ×2 (16:14→23:29)
[2020-07-23] MEDS: Lactated Ringers 1,000 ML IV SCH ×2 (16:15→23:29)
[2020-07-23] MEDS: Gabapentin 400 MG Cap PO SCH ×2 (16:18→20:50)
[2020-07-23] MEDS: tiZANidine 2 MG Tab PO SCH ×2 (16:18→20:51)
[2020-07-23] MEDS: Levofloxacin/Dextrose 5%-Water 750 MG in Premix Bag 1 BAG IV SCH (16:22)
[2020-07-23] MEDS: Insulin Lispro 100 Unit/ML 3 ML KwikPen SUBCUT SCH ×2 (17:36→20:49)
[2020-07-23] MEDS: Enoxaparin 40 MG/0.4 ML Syringe SUBCUT SCH (17:37)
[2020-07-23] MEDS: Piperacillin/Tazobactam/Dext 3.375 GM in Premix Bag 1 BAG IV SCH ×2 (17:58→22:38)
[2020-07-23] MEDS: CLOZAPINE 200 MG PO SCH (20:49)
[2020-07-23] MEDS: rOPINIRole 1 MG Tab PO SCH (20:50)
[2020-07-23] MEDS: Ibuprofen 800 MG Tab PO SCH (20:50)
[2020-07-24] MEDS: Acetaminophen 325 MG Tab PO PRN ×3 (03:31→21:04)
[2020-07-24] MEDS: Piperacillin/Tazobactam/Dext 3.375 GM in Premix Bag 1 BAG IV SCH ×4 (05:01→22:38)
[2020-07-24] MEDS: Albuterol 0.083% 2.5 MG/3 ML Neb Soln NEB PRN (05:08)
[2020-07-24] MEDS: oxyCODONE 5 MG Tab PO PRN ×4 (05:13→21:05)
[2020-07-24] MEDS: Ibuprofen 400 MG Tab PO PRN (06:34)
[2020-07-24] MEDS: Lactated Ringers 1,000 ML IV SCH (07:17)
[2020-07-24] MEDS: Gabapentin 400 MG Cap PO SCH ×3 (08:16→21:06)
[2020-07-24] MEDS: tiZANidine 2 MG Tab PO SCH ×3 (08:16→21:07)
[2020-07-24] MEDS: Citalopram 20 MG Tab PO SCH (08:16)
[2020-07-24] MEDS: Pantoprazole 40 MG Tab.CR PO SCH (08:16)
[2020-07-24] MEDS: LORazepam 1 MG Tab PO SCH ×3 (08:17→21:05)
[2020-07-24] MEDS: Estradiol 0.5 MG Tab PO SCH (08:17)
[2020-07-24] MEDS: OLANZapine 5 MG Tab PO SCH (08:17)
[2020-07-24] MEDS: Insulin Lispro 100 Unit/ML 3 ML KwikPen SUBCUT SCH ×4 (08:18→21:12)
[2020-07-24] MEDS: Magnesium Oxide 400 MG Tab PO SCH ×2 (08:41→21:05)
[2020-07-24] MEDS: Magnesium Sulfate/Water 2 GM in Premix Bag 1 BAG IV SCH ×2 (08:44→14:44)
[2020-07-24] MEDS ORDERED: Lactated Ringers 1,000 ML IV SCH (09:30)
--- NOTE | 2020-07-24 09:32 | PCM.PN ---
- General Info Date of Service: 07/24/20 Subjective Update: Ms. Shane has continued to experience difficulty with shortness of breath and hypoxia. This morning she got up to go to the bathroom and then experienced increased respiratory rate with hypoxia and tachycardia. She is taken some time to recover despite increase in supplemental oxygen. She did have mild temperature elevation this morning. White blood cell count has improved from admission. Functional Status: Reports: Tolerating Diet, Urinating - Review of Systems General: Reports: Fever, Weakness, Fatigue, Chills Pulmonary: Reports: Shortness of Breath. Denies: Pleuritic Chest Pain, Cough, Sputum, Hemoptysis, Wheezing Cardiovascular: Reports: Dyspnea on Exertion. Denies: Chest Pain, Palpitations, Orthopnea, PND, Edema Gastrointestinal: Reports: No Symptoms - Patient Data Vitals - Most Recent: Last Vital Signs Temp 100 F 07/24/20 06:34 Pulse 103 H 07/23/20 19:00 Resp 22 H 07/24/20 06:00 BP 105/47 L 07/24/20 06:00 Pulse Ox 87 L 07/24/20 06:00 Weight - Most Recent: 271 lb 15.995 oz I&O - Last 24 Hours: Intake & Output 07/23/20 07/24/20 07/24/20 22:59 06:59 14:59 Intake Total 1030 2060 Balance 1030 2060 Lab Results Last 24 Hours: Laboratory Results - last 24 hr 07/23/20 07/23/20 07/23/20 Range/Units 10:29 10:55 10:58 WBC (4.5-11.0) K/uL RBC (3.30-5.50) M/uL Hgb (12.0-15.0) g/dL Hct (36.0-48.0) % MCV (80-98) fL MCH (27-31) pg MCHC (32-36) % Plt Count (150-400) K/uL Neut % (Auto) (36-66) % Lymph % (Auto) (24-44) % [place] % (Auto) (2-6) % Eos % (Auto) (2-4) % Baso % (Auto) (0-1) % ABG Hemoglobin (12.0-16.0) g/dL ABG Oxyhemoglobin % ABG Carboxyhemoglobin (0.0-1.6) % ABG Methemoglobin % VBG pH (7.350-7.450) VBG pCO2 mm/Hg VBG pO2 mm/Hg VBG HCO3 mmol/L VBG Total CO2 mmol/L VBG O2 Saturation VBG O2 Content %vol VBG Base Excess mm/L O2 Delivery Device Sodium (140-148) mmol/L Potassium (3.6-5.2) mmol/L Chloride (100-108) mmol/L Carbon Dioxide (21-32) mmol/L Anion Gap (5.0-14.0) mmol/L BUN (7-18) mg/dL Creatinine (0.6-1.0) mg/dL Est Cr Clr Drug Dosing mL/min Estimated GFR (MDRD) (>60) Glucose (74-106) mg/dL Lactic Acid (0.4-2.0) mmol/L Calcium (8.5-10.1) mg/dL Phosphorus 2.6 (2.5-4.9) mg/dL Magnesium 1.8 (1.8-2.4) mg/dL Total Bilirubin (0.2-1.0) mg/dL AST (15-37) U/L ALT (12-78) U/L Alkaline Phosphatase (46-116) U/L Lactate Dehydrogenase (82-234) U/L Troponin I (0.000-0.056) ng/mL C-Reactive Protein (0.0-0.3) mg/dL Total Protein (6.4-8.2) g/dL Albumin (3.4-5.0) g/dL Globulin (2.3-3.5) g/dL Albumin/Globulin Ratio (1.2-2.2) Procalcitonin ng/mL Urine Color Yellow (YELLOW) Urine Appearance Clear (CLEAR) Urine pH 7.0 (5.0-8.0) Ur Specific [place] 1.020 (1.008-1.030) Urine Protein Negative (NEGATIVE) mg/dL Urine Glucose (UA) 100 H (NEGATIVE) mg/dL Urine Ketones Negative (NEGATIVE) mg/dL Urine Occult Blood Negative (NEGATIVE) Urine Nitrite Negative (NEGATIVE) Urine Bilirubin Negative (NEGATIVE) Urine Urobilinogen 1.0 (0.2-1.0) EU/dL Ur Leukocyte Esterase Negative (NEGATIVE) Urine RBC 0-5 (0-5) Urine WBC 0-5 (0-5) Ur Epithelial Cells Rare Amorphous Sediment Rare Urine Bacteria Rare Urine Mucus Not seen SARS-CoV-2 RNA (BAILEY) Negative (NEGATIVE) 07/23/20 07/23/20 07/23/20 Range/Units 10:58 10:58 10:58 WBC 18.4 H (4.5-11.0) K/uL RBC 4.41 (3.30-5.50) M/uL Hgb 13.5 (12.0-15.0) g/dL Hct 41.2 (36.0-48.0) % MCV 93 (80-98) fL MCH 31 (27-31) pg MCHC 33 (32-36) % Plt Count 317 (150-400) K/uL Neut % (Auto) 88 H (36-66) % Lymph % (Auto) 7 L (24-44) % [place] % (Auto) 5 (2-6) % Eos % (Auto) 1 L (2-4) % Baso % (Auto) 0 (0-1) % ABG Hemoglobin (12.0-16.0) g/dL ABG Oxyhemoglobin % ABG Carboxyhemoglobin (0.0-1.6) % ABG Methemoglobin % VBG pH (7.350-7.450) VBG pCO2 mm/Hg VBG pO2 mm/Hg VBG HCO3 mmol/L VBG Total CO2 mmol/L VBG O2 Saturation VBG O2 Content %vol VBG Base Excess mm/L O2 Delivery Device Sodium 140 (140-148) mmol/L Potassium 4.6 (3.6-5.2) mmol/L Chloride 102 (100-108) mmol/L Carbon Dioxide 25 (21-32) mmol/L Anion Gap 12.8 (5.0-14.0) mmol/L BUN 10 (7-18) mg/dL Creatinine 0.9 (0.6-1.0) mg/dL Est Cr Clr Drug Dosing 73.27 mL/min Estimated GFR (MDRD) > 60 (>60) Glucose 174 H (74-106) mg/dL Lactic Acid (0.4-2.0) mmol/L Calcium 8.9 (8.5-10.1) mg/dL Phosphorus (2.5-4.9) mg/dL Magnesium (1.8-2.4) mg/dL Total Bilirubin 0.5 (0.2-1.0) mg/dL AST 29 (15-37) U/L ALT 34 (12-78) U/L Alkaline Phosphatase 109 (46-116) U/L Lactate Dehydrogenase 314 H (82-234) U/L Troponin I (0.000-0.056) ng/mL C-Reactive Protein 5.66 H (0.0-0.3) mg/dL Total Protein 6.5 (6.4-8.2) g/dL Albumin 3.5 (3.4-5.0) g/dL Globulin 3.0 (2.3-3.5) g/dL Albumin/Globulin Ratio 1.2 (1.2-2.2) Procalcitonin ng/mL Urine Color (YELLOW) Urine Appearance (CLEAR) Urine pH (5.0-8.0) Ur Specific [place] (1.008-1.030) Urine Protein (NEGATIVE) mg/dL Urine Glucose (UA) (NEGATIVE) mg/dL Urine Ketones (NEGATIVE) mg/dL Urine Occult Blood (NEGATIVE) Urine Nitrite (NEGATIVE) Urine Bilirubin (NEGATIVE) Urine Urobilinogen (0.2-1.0) EU/dL Ur Leukocyte Esterase (NEGATIVE) Urine RBC (0-5) Urine WBC (0-5) Ur Epithelial Cells Amorphous Sediment Urine Bacteria Urine Mucus SARS-CoV-2 RNA (BAILEY) (NEGATIVE) 07/23/20 07/23/20 07/23/20 Range/Units 10:58 10:58 10:58 WBC (4.5-11.0) K/uL RBC (3.30-5.50) M/uL Hgb (12.0-15.0) g/dL Hct (36.0-48.0) % MCV (80-98) fL MCH (27-31) pg MCHC (32-36) % Plt Count (150-400) K/uL Neut % (Auto) (36-66) % Lymph % (Auto) (24-44) % [place] % (Auto) (2-6) % Eos % (Auto) (2-4) % Baso % (Auto) (0-1) % ABG Hemoglobin (12.0-16.0) g/dL ABG Oxyhemoglobin % ABG Carboxyhemoglobin (0.0-1.6) % ABG Methemoglobin % VBG pH (7.350-7.450) VBG pCO2 mm/Hg VBG pO2 mm/Hg VBG HCO3 mmol/L VBG Total CO2 mmol/L VBG O2 Saturation VBG O2 Content %vol VBG Base Excess mm/L O2 Delivery Device Sodium (140-148) mmol/L Potassium (3.6-5.2) mmol/L Chloride (100-108) mmol/L Carbon Dioxide (21-32) mmol/L Anion Gap (5.0-14.0) mmol/L BUN (7-18) mg/dL Creatinine (0.6-1.0) mg/dL Est Cr Clr Drug Dosing mL/min Estimated GFR (MDRD) (>60) Glucose (74-106) mg/dL Lactic Acid 2.6 H (0.4-2.0) mmol/L Calcium (8.5-10.1) mg/dL Phosphorus (2.5-4.9) mg/dL Magnesium (1.8-2.4) mg/dL Total Bilirubin (0.2-1.0) mg/dL AST (15-37) U/L ALT (12-78) U/L Alkaline Phosphatase (46-116) U/L Lactate Dehydrogenase (82-234) U/L Troponin I < 0.017 (0.000-0.056) ng/mL C-Reactive Protein (0.0-0.3) mg/dL Total Protein (6.4-8.2) g/dL Albumin (3.4-5.0) g/dL Globulin (2.3-3.5) g/dL Albumin/Globulin Ratio (1.2-2.2) Procalcitonin < 0.05 ng/mL Urine Color (YELLOW) Urine Appearance (CLEAR) Urine pH (5.0-8.0) Ur Specific [place] (1.008-1.030) Urine Protein (NEGATIVE) mg/dL Urine Glucose (UA) (NEGATIVE) mg/dL Urine Ketones (NEGATIVE) mg/dL Urine Occult Blood (NEGATIVE) Urine Nitrite (NEGATIVE) Urine Bilirubin (NEGATIVE) Urine Urobilinogen (0.2-1.0) EU/dL Ur Leukocyte Esterase (NEGATIVE) Urine RBC (0-5) Urine WBC (0-5) Ur Epithelial Cells Amorphous Sediment Urine Bacteria Urine Mucus SARS-CoV-2 RNA (BAILEY) (NEGATIVE) 07/23/20 07/24/20 07/24/20 Range/Units 11:24 05:00 05:00 WBC 14.5 H (4.5-11.0) K/uL RBC 4.15 (3.30-5.50) M/uL Hgb 12.9 (12.0-15.0) g/dL Hct 39.6 (36.0-48.0) % MCV 95 (80-98) fL MCH 31 (27-31) pg MCHC 33 (32-36) % Plt Count 294 (150-400) K/uL Neut % (Auto) 88 H (36-66) % Lymph % (Auto) 7 L (24-44) % [place] % (Auto) 4 (2-6) % Eos % (Auto) 1 L (2-4) % Baso % (Auto) 0 (0-1) % ABG Hemoglobin 14.1 (12.0-16.0) g/dL ABG Oxyhemoglobin 84.2 % ABG Carboxyhemoglobin 3.0 H (0.0-1.6) % ABG Methemoglobin 1.2 % VBG pH 7.397 (7.350-7.450) VBG pCO2 45.7 mm/Hg VBG pO2 55.0 mm/Hg VBG HCO3 27.6 mmol/L VBG Total CO2 24.3 mmol/L VBG O2 Saturation 87.9 VBG O2 Content 16.6 %vol VBG Base Excess 2.6 mm/L O2 Delivery Device Nasal cannula Sodium 143 (140-148) mmol/L Potassium 4.3 (3.6-5.2) mmol/L Chloride 107 (100-108) mmol/L Carbon Dioxide 28 (21-32) mmol/L Anion Gap 8.4 (5.0-14.0) mmol/L BUN 9 (7-18) mg/dL Creatinine 0.7 (0.6-1.0) mg/dL Est Cr Clr Drug Dosing 94.06 mL/min Estimated GFR (MDRD) > 60 (>60) Glucose 181 H (74-106) mg/dL Lactic Acid (0.4-2.0) mmol/L Calcium 8.3 L (8.5-10.1) mg/dL Phosphorus (2.5-4.9) mg/dL Magnesium 1.6 L (1.8-2.4) mg/dL Total Bilirubin (0.2-1.0) mg/dL AST (15-37) U/L ALT (12-78) U/L Alkaline Phosphatase (46-116) U/L Lactate Dehydrogenase (82-234) U/L Troponin I (0.000-0.056) ng/mL C-Reactive Protein (0.0-0.3) mg/dL Total Protein (6.4-8.2) g/dL Albumin (3.4-5.0) g/dL Globulin (2.3-3.5) g/dL Albumin/Globulin Ratio (1.2-2.2) Procalcitonin ng/mL Urine Color (YELLOW) Urine Appearance (CLEAR) Urine pH (5.0-8.0) Ur Specific [place] (1.008-1.030) Urine Protein (NEGATIVE) mg/dL Urine Glucose (UA) (NEGATIVE) mg/dL Urine Ketones (NEGATIVE) mg/dL Urine Occult Blood (NEGATIVE) Urine Nitrite (NEGATIVE) Urine Bilirubin (NEGATIVE) Urine Urobilinogen (0.2-1.0) EU/dL Ur Leukocyte Esterase (NEGATIVE) Urine RBC (0-5) Urine WBC (0-5) Ur Epithelial Cells Amorphous Sediment Urine Bacteria Urine Mucus SARS-CoV-2 RNA (BAILEY) (NEGATIVE) [place] Results Last 24 Hours: Microbiology 07/23/20 10:55 Influenza Type A Antigen Screen - Final Nasal Aspirate, Unspecified NEGATIVE INFLUENZA A VIRUS AG REFERENCE RANGE: NEGATIVE Influenza Type B Antigen Screen - Final NEGATIVE INFLUENZA B VIRUS AG REFERENCE RANGE: NEGATIVE Med Orders - Current: Current Medications Acetaminophen (Tylenol) 650 mg PO Q4H PRN PRN Reason: Pain (Mild 1-3)/fever Last Admin: 07/24/20 03:31 Dose: 650 mg Documented by: Albuterol (Proventil Neb Soln) 2.5 mg NEB Q4H PRN PRN Reason: Shortness Of Breath/wheezing Last Admin: 07/24/20 05:08 Dose: 2.5 mg Documented by: Citalopram Hydrobromide (Celexa) 40 mg PO DAILY [place] Last Admin: 07/24/20 08:16 Dose: 40 mg Documented by: Dextrose (Glutose 15) 15 gm PO ONETIME PRN PRN Reason: Hypoglycemia Dextrose/Water (Dextrose 50% In Water) 50 ml IV ONETIME PRN PRN Reason: Hypoglycemia Enoxaparin Sodium (Lovenox) 40 mg SUBCUT Q24H [facility] Last Admin: 07/23/20 17:37 Dose: Not Given Documented by: Estradiol (Estradiol) 0.5 mg PO DAILY [facility] Last Admin: 07/24/20 08:17 Dose: 0.5 mg Documented by: Gabapentin (Neurontin) 400 mg PO TID [facility] Last Admin: 07/24/20 08:16 Dose: 400 mg Documented by: Piperacillin/Tazobactam/ (Dextrose 3.375 gm/ Premix) 50 mls @ 100 mls/hr IV Q6H [facility] Last Admin: 07/24/20 05:01 Dose: 100 mls/hr Documented by: Levofloxacin/Dextrose 750 mg/ (Premix) 150 mls @ 100 mls/hr IV Q24H [facility] Last Admin: 07/23/20 16:22 Dose: 100 mls/hr Documented by: Magnesium Sulfate 2 gm/ Premix 50 mls @ 25 mls/hr IV Q6H [facility] Stop: 07/24/20 16:59 Last Admin: 07/24/20 08:44 Dose: 25 mls/hr Documented by: Lactated Ringer's (Ringers, Lactated) 1,000 mls @ 75 mls/hr IV ASDIRECTED [facility] Ibuprofen (Motrin) 800 mg PO BID [facility] Last Admin: 07/23/20 20:50 Dose: 800 mg Documented by: Ibuprofen (Motrin) 400 mg PO Q8H PRN PRN Reason: Fever Last Admin: 07/24/20 06:34 Dose: 400 mg Documented by: Insulin Human Lispro (Humalog) 0 unit SUBCUT QIDACANDBED [facility]; Protocol Last Admin: 07/24/20 08:18 Dose: 1 unit Documented by: Lorazepam (Ativan) 1 mg PO TID [facility] Last Admin: 07/24/20 08:17 Dose: 1 mg Documented by: Magnesium Oxide (Magnesium Oxide) 400 mg PO BID [facility] Last Admin: 07/24/20 08:41 Dose: 400 mg Documented by: Olanzapine (Zyprexa) 15 mg PO DAILY [facility] Last Admin: 07/24/20 08:17 Dose: 15 mg Documented by: Olanzapine (Zyprexa) 15 mg PO DAILY@1500 PRN PRN Reason: * Ondansetron HCl (Zofran) 4 mg IV Q4H PRN PRN Reason: Nausea/Vomiting Oxycodone HCl (Oxycodone) 5 mg PO Q4H PRN PRN Reason: Pain (moderate 4-6) Last Admin: 07/24/20 09:13 Dose: 5 mg Documented by: Pantoprazole Sodium (Protonix) 40 mg PO ACBREAKFAST [facility] Last Admin: 07/24/20 08:16 Dose: 40 mg Documented by: Clozapine 200mg (Ptom) 0 each PO BEDTIME [facility] Last Admin: 07/23/20 20:49 Dose: 1 each Documented by: Polyethylene Glycol (Miralax) 17 gm PO DAILY PRN PRN Reason: Constipation Ropinirole HCl (Requip) 1 mg PO BEDTIME [facility] Last Admin: 07/23/20 20:50 Dose: 1 mg Documented by: Sodium Chloride (Saline Flush) 10 ml FLUSH ASDIRECTED PRN PRN Reason: Keep Vein Open Tizanidine HCl (Zanaflex) 2 mg PO TID [facility] Last Admin: 07/24/20 08:16 Dose: 2 mg Documented by: Discontinued Medications Lactated Ringer's (Ringers, Lactated) 1,000 mls @ 999 mls/hr IV ASDIRECTED [facility] Azithromycin 500 mg/ Sodium (Chloride) 250 mls @ 250 mls/hr IV Q24H [facility] Last Admin: 07/23/20 11:42 Dose: 250 mls/hr Documented by: Sodium Chloride (Normal Saline) 1,000 mls @ 999 mls/hr IV ASDIRECTED [facility] Last Admin: 07/23/20 11:41 Dose: 999 mls/hr Documented by: Ceftriaxone Sodium 1 gm/ (Sodium Chloride) 50 mls @ 100 mls/hr IV ONETIME ONE Stop: 07/23/20 11:04 Last Admin: 07/23/20 11:43 Dose: 100 mls/hr Documented by: Sodium Chloride (Normal Saline) 100 mls @ 3 mls/sec IV ONETIME ONE Stop: 07/23/20 12:21 Last Admin: 07/23/20 14:00 Dose: 3 mls/sec Documented by: Lactated Ringer's (Ringers, Lactated) 1,000 mls @ 125 mls/hr IV ASDIRECTED [facility] Last Admin: 07/24/20 07:17 Dose: 125 mls/hr Documented by: Iopamidol (Isovue-370 (76%)) 100 ml IV . DIRECTED [facility] Last Admin: 07/23/20 14:00 Dose: 100 ml Documented by: Sodium Chloride (Saline Flush) 10 ml FLUSH ONETIME PRN PRN Reason: PER RADIOLOGY PROTOCOL Last Admin: 07/23/20 14:00 Dose: 10 ml Documented by: - Exam Quality Assessment: Supplemental Oxygen, DVT Prophylaxis General: Alert, Oriented, Cooperative, Moderate Distress Lungs: Clear to Auscultation, Normal Respiratory Effort, Decreased Breath Sounds Cardiovascular: Regular Rate, Regular Rhythm, No Murmurs GI/Abdominal Exam: Soft, Non-Tender, No Organomegaly, No Distention Extremities: Non-Tender, No Pedal Edema Sepsis Event Note - Evaluation Sepsis Screening Result: Severe Sepsis Risk - Focused Exam Vital Signs: Vital Signs Temp Temp Resp BP Pulse Ox 07/24/20 06:34 100 F 07/24/20 06:14 100 F 07/24/20 06:00 99 F 22 H 105/47 L 87 L 07/24/20 05:00 98.7 F 17 143/76 H 92 L 07/24/20 04:00 97.8 F 16 110/60 92 L 07/24/20 03:00 97.8 F 16 94/65 95 07/24/20 02:00 13 95/53 L 90 L 07/24/20 01:00 14 105/77 88 L 07/24/20 00:00 97.7 F 14 96/67 89 L 07/23/20 23:00 16 94/71 90 L 07/23/20 22:00 14 103/73 96 - Problem List Review Problem List Initiated/Reviewed/Updated: Yes - My Orders Last 24 Hours: My Active Orders 07/23/20 Lunch Consistent Carbohydrate Diet [DIET] 07/23/20 15:13 Resuscitation Status Routine 07/23/20 15:48 Acetaminophen [TylenoL] 650 mg PO Q4H PRN Albuterol [Proventil Neb Soln] 2.5 mg NEB Q4H PRN Dextrose 50% in Water 50 ml IV ONETIME PRN Dextrose [Glutose 15] 15 gm PO ONETIME PRN Gabapentin [Neurontin] 400 mg PO TID LORazepam [Ativan] 1 mg PO TID Ondansetron [Zofran] 4 mg IV Q4H PRN Sodium Chloride 0.9% [Saline Flush] 10 ml FLUSH ASDIRECTED PRN oxyCODONE 5 mg PO Q4H PRN polyethylene glycoL 3350 [MiraLAX] 17 gm PO DAILY PRN 07/23/20 15:48 Patient Status [ADT] Routine Ambulate [RC] QID Cardiac Monitoring [RC] .As Directed Communication Order [RC] STAT Diabetes Education [RC] Click to Edit Height and Weight [RC] DAILY Intake and Output [RC] QSHIFT Notify Provider Vital Signs [RC] ASDIRECTED Notify Provider [RC] PRN Oxygen Therapy [RC] PRN Peripheral IV Care [RC] . DIRECTED Pulse Oximetry [RC] CONTINUOUS RT Aerosol Therapy [RC] ASDIRECTED Up ad Kiana [RC] ASDIRECTED Up to Chair [RC] QID VTE/DVT Education [RC] Per Unit Routine Vital Signs [RC] Q1H Peripheral IV Insertion Adult [OM.PC] Routine 07/23/20 16:00 Levofloxacin/Dextrose 5%-Water [Levaquin in D5W 750 MG/150 ML] 750 mg Premix Bag 1 bag IV Q24H OLANZapine [ZyPREXA] 15 mg PO DAILY@1500 PRN tiZANidine [Zanaflex] 2 mg PO TID 07/23/20 17:00 Enoxaparin [Lovenox] 40 mg SUBCUT Q24H Insulin Lispro [HumaLOG] See Protocol SUBCUT QIDACANDBED Piperacillin/Tazobactam/Dext [Zosyn in Dextrose Iso-Osmotic 3.375 GM] 3.375 gm Premix Bag 1 bag IV Q6H 07/23/20 21:00 Ibuprofen [Motrin] 800 mg PO BID Patient's Own Medication [Ptom] 0 each PO BEDTIME rOPINIRole [Requip] 1 mg PO BEDTIME 07/24/20 06:11 Ibuprofen [Motrin] 400 mg PO Q8H PRN 07/24/20 07:30 Pantoprazole [ProTONIX] 40 mg PO ACBREAKFAST 07/24/20 09:00 Citalopram [Celexa] 40 mg PO DAILY Magnesium Oxide 400 mg PO BID Magnesium Sulfate/Water [Magnesium Sulfate in Water Premix] 2 gm Premix Bag 1 bag IV Q6H OLANZapine [ZyPREXA] 15 mg PO DAILY estradioL 0.5 mg PO DAILY 07/24/20 09:14 BIPAP [RT BiPAP/CPAP] [RC] ASDIRECTED 07/24/20 09:30 Lactated Ringers [Ringers, Lactated] 1,000 ml IV ASDIRECTED 07/25/20 05:00 BASIC METABOLIC PANEL,BMP [CHEM] Timed CBC WITH AUTO DIFF [HEME] Timed MAGNESIUM [CHEM] Timed 07/25/20 07:30 GLUCOSE POC LAB TO COLLECT JPM [POC] QIDACANDBED 07/25/20 11:30 GLUCOSE POC LAB TO COLLECT JPM [POC] QIDACANDBED 07/25/20 16:30 GLUCOSE POC LAB TO COLLECT JPM [POC] QIDACANDBED 07/25/20 21:00 GLUCOSE POC LAB TO COLLECT JPM [POC] QIDACANDBED 07/26/20 07:30 GLUCOSE POC LAB TO COLLECT JPM [POC] QIDACANDBED 07/26/20 11:30 GLUCOSE POC LAB TO COLLECT JPM [POC] QIDACANDBED 07/26/20 16:30 GLUCOSE POC LAB TO COLLECT JPM [POC] QIDACANDBED 07/26/20 21:00 GLUCOSE POC LAB TO COLLECT JPM [POC] QIDACANDBED 07/27/20 07:30 GLUCOSE POC LAB TO COLLECT JPM [POC] QIDACANDBED 07/27/20 11:30 GLUCOSE POC LAB TO COLLECT JPM [POC] QIDACANDBED 07/27/20 16:30 GLUCOSE POC LAB TO COLLECT JPM [POC] QIDACANDBED 07/27/20 21:00 GLUCOSE POC LAB TO COLLECT JPM [POC] QIDACANDBED 07/28/20 07:30 GLUCOSE POC LAB TO COLLECT JPM [POC] QIDACANDBED 07/28/20 11:30 GLUCOSE POC LAB TO COLLECT JPM [POC] QIDACANDBED - Plan Plan:: ASSESSMENT AND PLAN BILATERAL PNEUMONIA WITH SEPSIS-COVID test obtained in the emergency department is negative. She is hypoxic with evidence of underlying sepsis. Blood cultures are pending, antibiotics initiated in the emergency department with sepsis fluid resuscitation -Admit to ICU -Expanded IV antibiotic coverage given sepsis and respiratory compromise; Zosyn and levofloxacin -IV fluids -Blood cultures pending HYPOXIC RESPIRATORY COMPROMISE-secondary to bilateral pneumonia. Hypoxic this morning with minimal activity, prolonged recovery -Supplemental oxygen as needed -Nebulized albuterol as needed -Noninvasive positive pressure ventilation TYPE 2 DIABETES MELLITUS -Hold metformin in light of elevated lactic acid -4 times daily glucometers -Low-dose sliding scale Humalog MAINTENANCE ISSUES -DVT prophylaxis; Lovenox 40 mg subcu daily -GI prophylaxis; not indicated -Welch catheter; not indicated -Nutrition; consistent carbohydrate diet -Nicotine dependence; not required CODE STATUS-FULL CODE ADMISSION STATUS-patient will be admitted to inpatient status, expect at least a 2 night hospital stay for evaluation and management of problems as outlined above. At the time of this admission I do not reasonably expected evaluation and management of this problem will require more than a 96 hour hospital stay. DISPOSITION-anticipate discharge to home after the hospital stay. PRIMARY CARE PROVIDER-Dr. Loza
[2020-07-24] MEDS: Ibuprofen 800 MG Tab PO SCH ×2 (09:59→21:06)
[2020-07-24] MEDS: Levofloxacin/Dextrose 5%-Water 750 MG in Premix Bag 1 BAG IV SCH (16:54)
[2020-07-24] MEDS: Enoxaparin 40 MG/0.4 ML Syringe SUBCUT SCH (17:13)
[2020-07-24] MEDS: CLOZAPINE 200 MG PO SCH (21:06)
[2020-07-24] MEDS: rOPINIRole 1 MG Tab PO SCH (21:07)
[2020-07-25] MEDS: Piperacillin/Tazobactam/Dext 3.375 GM in Premix Bag 1 BAG IV SCH ×4 (04:13→22:19)
[2020-07-25] MEDS: Insulin Lispro 100 Unit/ML 3 ML KwikPen SUBCUT SCH ×4 (07:29→20:21)
[2020-07-25] MEDS: Pantoprazole 40 MG Tab.CR PO SCH (08:20)
[2020-07-25] MEDS: Citalopram 20 MG Tab PO SCH (08:38)
[2020-07-25] MEDS: LORazepam 1 MG Tab PO SCH ×3 (08:38→20:12)
[2020-07-25] MEDS: Estradiol 0.5 MG Tab PO SCH (08:39)
[2020-07-25] MEDS: Magnesium Oxide 400 MG Tab PO SCH ×2 (08:39→20:13)
[2020-07-25] MEDS: tiZANidine 2 MG Tab PO SCH ×3 (08:39→20:15)
[2020-07-25] MEDS: Gabapentin 400 MG Cap PO SCH ×3 (08:41→20:14)
[2020-07-25] MEDS: Ibuprofen 800 MG Tab PO SCH ×2 (08:41→20:14)
[2020-07-25] MEDS: OLANZapine 5 MG Tab PO SCH (08:50)
--- NOTE | 2020-07-25 09:26 | PCM.PN ---
- General Info Date of Service: 07/25/20 Subjective Update: Ms. Shane has continued to require use of noninvasive positive pressure ventilation over the past 24 hours. Oxygenation and respiratory rate have been stable with the use of this intervention. She becomes hypoxic relatively quickly when the BiPAP is removed. She has been afebrile over the last 24 hours and there has been further improvement in her white blood cell count. Functional Status: Reports: Tolerating Diet, Urinating - Review of Systems General: Reports: Weakness. Denies: Fever, Chills Pulmonary: Reports: Shortness of Breath. Denies: Pleuritic Chest Pain, Cough, Sputum, Hemoptysis, Wheezing Cardiovascular: Reports: Dyspnea on Exertion. Denies: Chest Pain, Palpitations, Orthopnea, PND, Edema, Lightheadedness Gastrointestinal: Reports: No Symptoms - Patient Data Vitals - Most Recent: Last Vital Signs Temp 98.1 F 07/25/20 08:00 Pulse 92 07/25/20 08:00 Resp 20 07/25/20 08:00 BP 101/57 L 07/25/20 08:00 Pulse Ox 93 L 07/25/20 08:00 Weight - Most Recent: 285 lb 9.6 oz I&O - Last 24 Hours: Intake & Output 07/24/20 07/25/20 07/25/20 22:59 06:59 14:59 Intake Total 2515 767 Balance 2515 767 Lab Results Last 24 Hours: Laboratory Results - last 24 hr 07/25/20 07/25/20 Range/Units 04:45 04:45 WBC 11.2 H (4.5-11.0) K/uL RBC 3.65 (3.30-5.50) M/uL Hgb 11.3 L (12.0-15.0) g/dL Hct 35.4 L (36.0-48.0) % MCV 97 (80-98) fL MCH 31 (27-31) pg MCHC 32 (32-36) % Plt Count 279 (150-400) K/uL Neut % (Auto) 76 H (36-66) % Lymph % (Auto) 16 L (24-44) % [place] % (Auto) 7 H (2-6) % Eos % (Auto) 1 L (2-4) % Baso % (Auto) 0 (0-1) % Sodium 142 (140-148) mmol/L Potassium 4.0 (3.6-5.2) mmol/L Chloride 104 (100-108) mmol/L Carbon Dioxide 30 (21-32) mmol/L Anion Gap 7.7 (5.0-14.0) mmol/L BUN 12 (7-18) mg/dL Creatinine 0.7 (0.6-1.0) mg/dL Est Cr Clr Drug Dosing 94.06 mL/min Estimated GFR (MDRD) > 60 (>60) Glucose 128 H (74-106) mg/dL Calcium 8.0 L (8.5-10.1) mg/dL Magnesium 2.1 (1.8-2.4) mg/dL Diego Results Last 24 Hours: Microbiology 07/23/20 11:20 Aerobic Blood Culture - Preliminary Blood - Venous - Iv Start NO GROWTH AFTER 1 DAY Anaerobic Blood Culture - Preliminary NO GROWTH AFTER 1 DAY Med Orders - Current: Current Medications Acetaminophen (Tylenol) 650 mg PO Q4H PRN PRN Reason: Pain (Mild 1-3)/fever Last Admin: 07/24/20 21:04 Dose: 650 mg Documented by: Albuterol (Proventil Neb Soln) 2.5 mg NEB Q4H PRN PRN Reason: Shortness Of Breath/wheezing Last Admin: 07/24/20 05:08 Dose: 2.5 mg Documented by: Citalopram Hydrobromide (Celexa) 40 mg PO DAILY [facility] Last Admin: 07/25/20 08:38 Dose: 40 mg Documented by: Dextrose (Glutose 15) 15 gm PO ONETIME PRN PRN Reason: Hypoglycemia Dextrose/Water (Dextrose 50% In Water) 50 ml IV ONETIME PRN PRN Reason: Hypoglycemia Enoxaparin Sodium (Lovenox) 40 mg SUBCUT Q24H [facility] Last Admin: 07/24/20 17:13 Dose: 40 mg Documented by: Estradiol (Estradiol) 0.5 mg PO DAILY [facility] Last Admin: 07/25/20 08:39 Dose: 0.5 mg Documented by: Gabapentin (Neurontin) 400 mg PO TID [facility] Last Admin: 07/25/20 08:41 Dose: 400 mg Documented by: Piperacillin/Tazobactam/ (Dextrose 3.375 gm/ Premix) 50 mls @ 100 mls/hr IV Q6H [facility] Last Admin: 07/25/20 04:13 Dose: 100 mls/hr Documented by: Levofloxacin/Dextrose 750 mg/ (Premix) 150 mls @ 100 mls/hr IV Q24H [facility] Last Admin: 07/24/20 16:54 Dose: 100 mls/hr Documented by: Lactated Ringer's (Ringers, Lactated) 1,000 mls @ 50 mls/hr IV ASDIRECTED [facility] Ibuprofen (Motrin) 800 mg PO BID [facility] Last Admin: 07/25/20 08:41 Dose: 800 mg Documented by: Ibuprofen (Motrin) 400 mg PO Q8H PRN PRN Reason: Fever Last Admin: 07/24/20 06:34 Dose: 400 mg Documented by: Insulin Human Lispro (Humalog) 0 unit SUBCUT QIDACANDBED [facility]; Protocol Last Admin: 07/25/20 07:29 Dose: Not Given Documented by: Lorazepam (Ativan) 1 mg PO TID [facility] Last Admin: 07/25/20 08:38 Dose: 1 mg Documented by: Magnesium Oxide (Magnesium Oxide) 400 mg PO BID [facility] Last Admin: 07/25/20 08:39 Dose: 400 mg Documented by: Olanzapine (Zyprexa) 15 mg PO DAILY [facility] Last Admin: 07/25/20 08:50 Dose: 15 mg Documented by: Olanzapine (Zyprexa) 15 mg PO DAILY@1500 PRN PRN Reason: * Last Admin: 07/25/20 08:40 Dose: 15 mg Documented by: Ondansetron HCl (Zofran) 4 mg IV Q4H PRN PRN Reason: Nausea/Vomiting Oxycodone HCl (Oxycodone) 5 mg PO Q4H PRN PRN Reason: Pain (moderate 4-6) Last Admin: 07/24/20 21:05 Dose: 5 mg Documented by: Pantoprazole Sodium (Protonix) 40 mg PO ACBREAKFAST [facility] Last Admin: 07/25/20 08:20 Dose: 40 mg Documented by: Clozapine 200mg (Ptom) 0 each PO BEDTIME [facility] Last Admin: 07/24/20 21:06 Dose: 1 each Documented by: Polyethylene Glycol (Miralax) 17 gm PO DAILY PRN PRN Reason: Constipation Ropinirole HCl (Requip) 1 mg PO BEDTIME [facility] Last Admin: 07/24/20 21:07 Dose: 1 mg Documented by: Sodium Chloride (Saline Flush) 10 ml FLUSH ASDIRECTED PRN PRN Reason: Keep Vein Open Tizanidine HCl (Zanaflex) 2 mg PO TID [facility] Last Admin: 07/25/20 08:39 Dose: 2 mg Documented by: Discontinued Medications Lactated Ringer's (Ringers, Lactated) 1,000 mls @ 999 mls/hr IV ASDIRECTED [facility] Azithromycin 500 mg/ Sodium (Chloride) 250 mls @ 250 mls/hr IV Q24H [facility] Last Admin: 07/23/20 11:42 Dose: 250 mls/hr Documented by: Sodium Chloride (Normal Saline) 1,000 mls @ 999 mls/hr IV ASDIRECTED [facility] Last Admin: 07/23/20 11:41 Dose: 999 mls/hr Documented by: Ceftriaxone Sodium 1 gm/ (Sodium Chloride) 50 mls @ 100 mls/hr IV ONETIME ONE Stop: 07/23/20 11:04 Last Admin: 07/23/20 11:43 Dose: 100 mls/hr Documented by: Sodium Chloride (Normal Saline) 100 mls @ 3 mls/sec IV ONETIME ONE Stop: 07/23/20 12:21 Last Admin: 07/23/20 14:00 Dose: 3 mls/sec Documented by: Lactated Ringer's (Ringers, Lactated) 1,000 mls @ 125 mls/hr IV ASDIRECTED [facility] Last Admin: 07/24/20 07:17 Dose: 125 mls/hr Documented by: Magnesium Sulfate 2 gm/ Premix 50 mls @ 25 mls/hr IV Q6H [facility] Stop: 07/24/20 16:59 Last Admin: 07/24/20 14:44 Dose: 25 mls/hr Documented by: Lactated Ringer's (Ringers, Lactated) 1,000 mls @ 75 mls/hr IV ASDIRECTED [facility] Last Admin: 07/24/20 20:59 Dose: 75 mls/hr Documented by: Iopamidol (Isovue-370 (76%)) 100 ml IV . DIRECTED [facility] Last Admin: 07/23/20 14:00 Dose: 100 ml Documented by: Sodium Chloride (Saline Flush) 10 ml FLUSH ONETIME PRN PRN Reason: PER RADIOLOGY PROTOCOL Last Admin: 07/23/20 14:00 Dose: 10 ml Documented by: - Exam Quality Assessment: DVT Prophylaxis General: Alert, Oriented, Cooperative, Moderate Distress Lungs: Clear to Auscultation, Normal Respiratory Effort, Decreased Breath Sounds. No: Rales, Rhonchi, Wheezing Cardiovascular: Regular Rate, Regular Rhythm, No Murmurs GI/Abdominal Exam: Soft, Non-Tender, No Organomegaly, No Distention Extremities: Non-Tender, No Pedal Edema Sepsis Event Note - Evaluation Sepsis Screening Result: No Definite Risk - Focused Exam Vital Signs: Vital Signs Temp Pulse Resp BP Pulse Ox 07/25/20 08:00 98.1 F 92 20 101/57 L 93 L 07/25/20 06:00 77 15 91/49 L 95 07/25/20 05:00 79 18 88/46 L 96 07/25/20 04:00 76 17 95/56 L 94 L 07/25/20 03:00 98.4 F 80 23 H 97/57 L 93 L 07/25/20 02:00 80 17 89/56 L 94 L 07/25/20 01:00 79 16 92/53 L 94 L 07/25/20 00:00 80 13 96/55 L 94 L 07/24/20 23:00 98.0 F 90 20 101/57 L 96 07/24/20 22:00 82 17 99/54 L 93 L - Problem List Review Problem List Initiated/Reviewed/Updated: Yes - My Orders Last 24 Hours: My Active Orders 07/24/20 09:00 Citalopram [Celexa] 40 mg PO DAILY Magnesium Oxide 400 mg PO BID OLANZapine [ZyPREXA] 15 mg PO DAILY estradioL 0.5 mg PO DAILY 07/24/20 09:14 BIPAP [RT BiPAP/CPAP] [RC] ASDIRECTED 07/25/20 09:30 Lactated Ringers [Ringers, Lactated] 1,000 ml IV ASDIRECTED 07/26/20 05:00 CBC WITH AUTO DIFF [HEME] Timed 07/26/20 07:30 GLUCOSE POC LAB TO COLLECT JPM [POC] QIDACANDBED 07/26/20 11:30 GLUCOSE POC LAB TO COLLECT JPM [POC] QIDACANDBED 07/26/20 16:30 GLUCOSE POC LAB TO COLLECT JPM [POC] QIDACANDBED 07/26/20 21:00 GLUCOSE POC LAB TO COLLECT JPM [POC] QIDACANDBED 07/27/20 07:30 GLUCOSE POC LAB TO COLLECT JPM [POC] QIDACANDBED 07/27/20 11:30 GLUCOSE POC LAB TO COLLECT JPM [POC] QIDACANDBED 07/27/20 16:30 GLUCOSE POC LAB TO COLLECT JPM [POC] QIDACANDBED 07/27/20 21:00 GLUCOSE POC LAB TO COLLECT JPM [POC] QIDACANDBED 07/28/20 07:30 GLUCOSE POC LAB TO COLLECT JPM [POC] QIDACANDBED 07/28/20 11:30 GLUCOSE POC LAB TO COLLECT JPM [POC] QIDACANDBED - Plan Plan:: ASSESSMENT AND PLAN BILATERAL PNEUMONIA WITH SEPSIS-afebrile over the last 24 hours, white blood cell count almost normalized. Continues to experience significant respiratory compromise requiring ongoing use of BiPAP -Admit to ICU -Expanded IV antibiotic coverage given sepsis and respiratory compromise; Zosyn and levofloxacin -IV fluids -Blood cultures pending HYPOXIC RESPIRATORY COMPROMISE-secondary to bilateral pneumonia. Hypoxic this morning with minimal activity, prolonged recovery -Supplemental oxygen as needed -Nebulized albuterol as needed -Noninvasive positive pressure ventilation TYPE 2 DIABETES MELLITUS -Hold metformin in light of elevated lactic acid -4 times daily glucometers -Low-dose sliding scale Humalog MAINTENANCE ISSUES -DVT prophylaxis; Lovenox 40 mg subcu daily -GI prophylaxis; not indicated -Welch catheter; not indicated -Nutrition; consistent carbohydrate diet -Nicotine dependence; not required CODE STATUS-FULL CODE ADMISSION STATUS-patient will be admitted to inpatient status, expect at least a 2 night hospital stay for evaluation and management of problems as outlined above. At the time of this admission I do not reasonably expected evaluation and management of this problem will require more than a 96 hour hospital stay. DISPOSITION-anticipate discharge to home after the hospital stay. PRIMARY CARE PROVIDER-Dr. Loza
[2020-07-25] MEDS: oxyCODONE 5 MG Tab PO PRN ×2 (11:16→17:00)
[2020-07-25] MEDS: Lactated Ringers 1,000 ML IV SCH (11:26)
[2020-07-25] MEDS: Acetaminophen 325 MG Tab PO PRN ×2 (13:38→20:13)
[2020-07-25] MEDS: Enoxaparin 40 MG/0.4 ML Syringe SUBCUT SCH (17:01)
[2020-07-25] MEDS: Levofloxacin/Dextrose 5%-Water 750 MG in Premix Bag 1 BAG IV SCH (17:14)
[2020-07-25] MEDS: CLOZAPINE 200 MG PO SCH (20:14)
[2020-07-25] MEDS: rOPINIRole 1 MG Tab PO SCH (20:15)
[2020-07-25] MEDS: Albuterol 0.083% 2.5 MG/3 ML Neb Soln NEB PRN (21:38)
[2020-07-26] MEDS: oxyCODONE 5 MG Tab PO PRN ×4 (02:36→20:30)
[2020-07-26] MEDS: Piperacillin/Tazobactam/Dext 3.375 GM in Premix Bag 1 BAG IV SCH ×4 (04:11→22:35)
[2020-07-26] MEDS: Albuterol 0.083% 2.5 MG/3 ML Neb Soln NEB PRN ×2 (04:57→21:49)
[2020-07-26] MEDS: Pantoprazole 40 MG Tab.CR PO SCH (08:44)
[2020-07-26] MEDS: Insulin Lispro 100 Unit/ML 3 ML KwikPen SUBCUT SCH ×4 (08:46→20:30)
[2020-07-26] MEDS: Citalopram 20 MG Tab PO SCH (08:50)
[2020-07-26] MEDS: Magnesium Oxide 400 MG Tab PO SCH ×2 (08:50→20:31)
[2020-07-26] MEDS: OLANZapine 5 MG Tab PO SCH (08:50)
[2020-07-26] MEDS: Ibuprofen 800 MG Tab PO SCH ×2 (08:51→20:31)
[2020-07-26] MEDS: Estradiol 0.5 MG Tab PO SCH (08:51)
[2020-07-26] MEDS: Gabapentin 400 MG Cap PO SCH ×3 (08:52→20:31)
[2020-07-26] MEDS: tiZANidine 2 MG Tab PO SCH ×3 (09:09→20:32)
[2020-07-26] MEDS: LORazepam 1 MG Tab PO SCH ×3 (09:17→20:31)
--- NOTE | 2020-07-26 09:41 | PCM.PN ---
- General Info Date of Service: 07/26/20 Subjective Update: Ms. Shane is unfortunately not doing as well today, during the night respiratory rate has increased and she is required increased supplemental oxygen with the BiPAP. White blood cell count had almost normalized and now has increased again today. She has remained afebrile over the last 24 hours. Functional Status: Reports: Urinating - Review of Systems General: Reports: Weakness, Fatigue. Denies: Fever, Chills Pulmonary: Reports: Shortness of Breath. Denies: Pleuritic Chest Pain, Cough, Sputum, Hemoptysis, Wheezing Cardiovascular: Reports: Dyspnea on Exertion. Denies: Chest Pain, Palpitations, Orthopnea, PND, Edema, Lightheadedness Gastrointestinal: Reports: No Symptoms - Patient Data Vitals - Most Recent: Last Vital Signs Temp 98.0 F 07/26/20 03:00 Pulse 97 07/26/20 06:00 Resp 32 H 07/26/20 06:00 BP 124/70 07/26/20 06:00 Pulse Ox 94 L 07/26/20 06:00 Weight - Most Recent: 288 lb 9.6 oz I&O - Last 24 Hours: Intake & Output 07/25/20 07/26/20 07/26/20 22:59 06:59 14:59 Intake Total 590 721 Output Total 300 300 Balance 290 421 Lab Results Last 24 Hours: Laboratory Results - last 24 hr 07/26/20 Range/Units 06:43 WBC 16.7 H (4.5-11.0) K/uL RBC 3.69 (3.30-5.50) M/uL Hgb 11.7 L (12.0-15.0) g/dL Hct 35.1 L (36.0-48.0) % MCV 95 (80-98) fL MCH 32 H (27-31) pg MCHC 33 (32-36) % Plt Count 244 (150-400) K/uL Neut % (Auto) 84 H (36-66) % Lymph % (Auto) 7 L (24-44) % [place] % (Auto) 9 H (2-6) % Eos % (Auto) 0 L (2-4) % Baso % (Auto) 0 (0-1) % [place] Results Last 24 Hours: Microbiology 07/23/20 11:20 Aerobic Blood Culture - Preliminary Blood - Venous - Iv Start NO GROWTH AFTER 2 DAYS Anaerobic Blood Culture - Preliminary NO GROWTH AFTER 2 DAYS Med Orders - Current: Current Medications Acetaminophen (Tylenol) 650 mg PO Q4H PRN PRN Reason: Pain (Mild 1-3)/fever Last Admin: 07/25/20 20:13 Dose: 650 mg Documented by: Albuterol (Proventil Neb Soln) 2.5 mg NEB Q4H PRN PRN Reason: Shortness Of Breath/wheezing Last Admin: 07/26/20 04:57 Dose: 2.5 mg Documented by: Citalopram Hydrobromide (Celexa) 40 mg PO DAILY [facility] Last Admin: 07/26/20 08:50 Dose: 40 mg Documented by: Dextrose (Glutose 15) 15 gm PO ONETIME PRN PRN Reason: Hypoglycemia Dextrose/Water (Dextrose 50% In Water) 50 ml IV ONETIME PRN PRN Reason: Hypoglycemia Enoxaparin Sodium (Lovenox) 40 mg SUBCUT Q24H [facility] Last Admin: 07/25/20 17:01 Dose: 40 mg Documented by: Estradiol (Estradiol) 0.5 mg PO DAILY [facility] Last Admin: 07/26/20 08:51 Dose: 0.5 mg Documented by: Gabapentin (Neurontin) 400 mg PO TID [facility] Last Admin: 07/26/20 08:52 Dose: 400 mg Documented by: Piperacillin/Tazobactam/ (Dextrose 3.375 gm/ Premix) 50 mls @ 100 mls/hr IV Q6H [facility] Last Admin: 07/26/20 04:11 Dose: 100 mls/hr Documented by: Levofloxacin/Dextrose 750 mg/ (Premix) 150 mls @ 100 mls/hr IV Q24H [facility] Last Admin: 07/25/20 17:14 Dose: 100 mls/hr Documented by: Lactated Ringer's (Ringers, Lactated) 1,000 mls @ 50 mls/hr IV ASDIRECTED [facility] Last Admin: 07/25/20 11:26 Dose: 50 mls/hr Documented by: Vancomycin HCl 1.75 gm/ Sodium (Chloride) 250 mls @ 166.667 mls/hr IV Q8H [facility] Ibuprofen (Motrin) 800 mg PO BID [facility] Last Admin: 07/26/20 08:51 Dose: 800 mg Documented by: Ibuprofen (Motrin) 400 mg PO Q8H PRN PRN Reason: Fever Last Admin: 07/24/20 06:34 Dose: 400 mg Documented by: Insulin Human Lispro (Humalog) 0 unit SUBCUT QIDACANDBED [facility]; Protocol Last Admin: 07/26/20 08:46 Dose: 1 unit Documented by: Lorazepam (Ativan) 1 mg PO TID [facility] Last Admin: 07/26/20 09:17 Dose: 1 mg Documented by: Magnesium Oxide (Magnesium Oxide) 400 mg PO BID [facility] Last Admin: 07/26/20 08:50 Dose: 400 mg Documented by: Olanzapine (Zyprexa) 15 mg PO DAILY [facility] Last Admin: 07/26/20 08:50 Dose: 15 mg Documented by: Olanzapine (Zyprexa) 15 mg PO DAILY@1500 PRN PRN Reason: * Last Admin: 07/25/20 08:40 Dose: 15 mg Documented by: Ondansetron HCl (Zofran) 4 mg IV Q4H PRN PRN Reason: Nausea/Vomiting Oxycodone HCl (Oxycodone) 5 mg PO Q4H PRN PRN Reason: Pain (moderate 4-6) Last Admin: 07/26/20 09:16 Dose: 5 mg Documented by: Pantoprazole Sodium (Protonix) 40 mg PO ACBREAKFAST [facility] Last Admin: 07/26/20 08:44 Dose: 40 mg Documented by: Clozapine 200mg (Ptom) 0 each PO BEDTIME [facility] Last Admin: 07/25/20 20:14 Dose: 1 each Documented by: Polyethylene Glycol (Miralax) 17 gm PO DAILY PRN PRN Reason: Constipation Ropinirole HCl (Requip) 1 mg PO BEDTIME [facility] Last Admin: 07/25/20 20:15 Dose: 1 mg Documented by: Sodium Chloride (Saline Flush) 10 ml FLUSH ASDIRECTED PRN PRN Reason: Keep Vein Open Tizanidine HCl (Zanaflex) 2 mg PO TID [facility] Last Admin: 07/26/20 09:09 Dose: 2 mg Documented by: Discontinued Medications Lactated Ringer's (Ringers, Lactated) 1,000 mls @ 999 mls/hr IV ASDIRECTED [facility] Azithromycin 500 mg/ Sodium (Chloride) 250 mls @ 250 mls/hr IV Q24H [facility] Last Admin: 07/23/20 11:42 Dose: 250 mls/hr Documented by: Sodium Chloride (Normal Saline) 1,000 mls @ 999 mls/hr IV ASDIRECTED [facility] Last Admin: 07/23/20 11:41 Dose: 999 mls/hr Documented by: Ceftriaxone Sodium 1 gm/ (Sodium Chloride) 50 mls @ 100 mls/hr IV ONETIME ONE Stop: 07/23/20 11:04 Last Admin: 07/23/20 11:43 Dose: 100 mls/hr Documented by: Sodium Chloride (Normal Saline) 100 mls @ 3 mls/sec IV ONETIME ONE Stop: 07/23/20 12:21 Last Admin: 07/23/20 14:00 Dose: 3 mls/sec Documented by: Lactated Ringer's (Ringers, Lactated) 1,000 mls @ 125 mls/hr IV ASDIRECTED [facility] Last Admin: 07/24/20 07:17 Dose: 125 mls/hr Documented by: Magnesium Sulfate 2 gm/ Premix 50 mls @ 25 mls/hr IV Q6H [facility] Stop: 07/24/20 16:59 Last Admin: 07/24/20 14:44 Dose: 25 mls/hr Documented by: Lactated Ringer's (Ringers, Lactated) 1,000 mls @ 75 mls/hr IV ASDIRECTED [facility] Last Admin: 07/24/20 20:59 Dose: 75 mls/hr Documented by: Iopamidol (Isovue-370 (76%)) 100 ml IV . DIRECTED [facility] Last Admin: 07/23/20 14:00 Dose: 100 ml Documented by: Sodium Chloride (Saline Flush) 10 ml FLUSH ONETIME PRN PRN Reason: PER RADIOLOGY PROTOCOL Last Admin: 07/23/20 14:00 Dose: 10 ml Documented by: - Exam General: Alert, Oriented, Cooperative, Moderate Distress Lungs: Rhonchi, Wheezing. No: Clear to Auscultation, Normal Respiratory Effort, Crackles, Rales, Rub Cardiovascular: Regular Rhythm, No Murmurs, Tachycardia GI/Abdominal Exam: Soft, Non-Tender, No Organomegaly, No Distention Extremities: Non-Tender, No Pedal Edema Sepsis Event Note - Evaluation Sepsis Screening Result: Severe Sepsis Risk - Focused Exam Vital Signs: Vital Signs Temp Pulse Resp BP Pulse Ox 07/26/20 06:00 97 32 H 124/70 94 L 07/26/20 05:00 95 35 H 115/65 90 L 07/26/20 04:00 86 32 H 104/61 92 L 07/26/20 03:00 98.0 F 88 28 H 107/62 91 L 07/26/20 02:00 90 26 H 94/55 L 91 L 07/26/20 01:00 89 25 H 103/55 L 93 L 07/26/20 00:00 98.7 F 91 26 H 93/48 L 92 L 07/25/20 23:00 96 24 H 101/57 L 91 L 07/25/20 22:00 104 H 29 H 105/57 L 92 L - Problem List Review Problem List Initiated/Reviewed/Updated: Yes - My Orders Last 24 Hours: My Active Orders 07/25/20 09:30 Lactated Ringers [Ringers, Lactated] 1,000 ml IV ASDIRECTED 07/26/20 09:11 Chest 1V Frontal [CR] Stat 07/26/20 09:30 Vancomycin 1.75 gm Sodium Chloride 0.9% [Normal Saline] 250 ml IV Q8H 07/26/20 09:34 BLOOD GAS ARTERIAL [BG] Stat 07/27/20 05:00 BASIC METABOLIC PANEL,BMP [CHEM] Timed CBC WITH AUTO DIFF [HEME] Timed 07/27/20 07:30 GLUCOSE POC LAB TO COLLECT JPM [POC] QIDACANDBED 07/27/20 11:30 GLUCOSE POC LAB TO COLLECT JPM [POC] QIDACANDBED 07/27/20 16:30 GLUCOSE POC LAB TO COLLECT JPM [POC] QIDACANDBED 07/27/20 21:00 GLUCOSE POC LAB TO COLLECT JPM [POC] QIDACANDBED 07/28/20 07:30 GLUCOSE POC LAB TO COLLECT JPM [POC] QIDACANDBED 07/28/20 11:30 GLUCOSE POC LAB TO COLLECT JPM [POC] QIDACANDBED - Plan Plan:: ASSESSMENT AND PLAN BILATERAL PNEUMONIA WITH SEPSIS-unfortunately she is not doing as well today even with use of the BiPAP. Remained afebrile, but white blood cell count is increased from yesterday. Requiring decreased supplemental oxygen with an increase in respiratory rate. -Follow-up chest x-ray -Arterial blood gases -Expanded IV antibiotic coverage given sepsis and respiratory compromise; Zosyn and levofloxacin -Add vancomycin to current antibiotic regimen -IV fluids; rate at 50 cc/h -Blood cultures pending HYPOXIC RESPIRATORY COMPROMISE-secondary to bilateral pneumonia. Hypoxic this morning with minimal activity, prolonged recovery, this has worsened over the last 24 hours -Supplemental oxygen as needed -Nebulized albuterol as needed -Noninvasive positive pressure ventilation TYPE 2 DIABETES MELLITUS -Hold metformin -4 times daily glucometers -Low-dose sliding scale Humalog MAINTENANCE ISSUES -DVT prophylaxis; Lovenox 40 mg subcu daily -GI prophylaxis; not indicated -Welch catheter; not indicated -Nutrition; consistent carbohydrate diet -Nicotine dependence; not required CODE STATUS-FULL CODE ADMISSION STATUS-patient will be admitted to inpatient status, expect at least a 2 night hospital stay for evaluation and management of problems as outlined above. At the time of this admission I do not reasonably expected evaluation and management of this problem will require more than a 96 hour hospital stay. DISPOSITION-anticipate discharge to home after the hospital stay. PRIMARY CARE PROVIDER-Dr. Loza
[2020-07-26] MEDS ORDERED: Vancomycin 1 GM SDV IV SCH (10:00)
--- NOTE | 2020-07-26 10:20 | CR ---
CHEST: Portable 07/26/2020 at 948 CLINICAL HISTORY:Increased hypoxia COMPARISON:07/23/2020 FINDINGS: The heart is enlarged. There are diffuse bilateral pulmonary infiltrates which have increased since prior study particularly in the upper lobes. IMPRESSION: Moderate increasing bilateral pulmonary infiltrates.
[2020-07-26] MEDS: Ibuprofen 400 MG Tab PO PRN (14:54)
[2020-07-26] MEDS: Levofloxacin/Dextrose 5%-Water 750 MG in Premix Bag 1 BAG IV SCH (16:03)
[2020-07-26] MEDS: Enoxaparin 40 MG/0.4 ML Syringe SUBCUT SCH (17:00)
[2020-07-26] MEDS: CLOZAPINE 200 MG PO SCH (20:31)
[2020-07-26] MEDS: rOPINIRole 1 MG Tab PO SCH (20:32)
[2020-07-26] MEDS ORDERED: LORazepam 2 MG/ML SDV ONE (23:51)
[2020-07-26] MEDS: LORazepam 2 MG/ML SDV IVPUSH PRN (23:55)
[2020-07-27] MEDS ORDERED: Heparin Sodium 5,000 Units/ML Vial ONE (00:56)
[2020-07-27] MEDS ORDERED: propofoL 100 ML ONE (01:17)
--- NOTE | 2020-07-27 01:40 | PCM.SN.2 ---
- Free Text/Narrative Note: Ms. Shane had unfortunately developed increased respiratory compromise throughout the day despite increase in supplemental oxygen through BiPAP. Pressures on BiPAP were also adjusted to obtain better tidal volumes, which unfortunately were also unsuccessful in improving her respiratory compromise. Respiratory rate climbed into the 40s with borderline oxygenation. Decision was made to proceed with intubation and mechanical ventilation. Intubation was performed by anesthesia service and then an arterial line was placed. Chest x- ray shows adequate endotracheal tube position and bilateral pulmonary infiltrates. She stabilized after intubation with mechanical ventilation. 1 hour of critical care time was spent in the direct management of this patient in the intensive care unit
[2020-07-27] MEDS: propofoL 100 ML IV SCH ×5 (01:43→20:49)
[2020-07-27] MEDS: Heparin Sodium 5,000 UNITS in Sodium Chloride 0.9% 500 ML IV SCH (01:46)
--- NOTE | 2020-07-27 03:42 | ANES ---
DATE OF SERVICE: 07/27/2020 Intubation, arterial line placement and IV placement note. I was called in early this morning by the ICU regarding a patient in respiratory failure requiring emergency intubation. I was at the bedside at approximately 1 o'clock. The patient was on 80% FiO2, BiPAP and sats were 93%. Blood pressure was stable systolically in the 140s over 70s diastolic. The patient was awake and able to talk. The patient was gotten into position. FiO2 was bumped up to 100% on the BiPAP. Suction was at the ready. Ambu bag was at the ready. Equipment was all gathered and nurses were at the bedside for intubation. O2 saturation only get up to about 97% after a few minutes of the 100% FiO2. I then proceeded to give the patient 100 mg of propofol followed by 100 mg of succinylcholine and flushed with some normal saline. MAC-3 blade was used for intubation. Grade 3 view was noted on intubation with only the base of the arytenoids noted. A blue intubating bougie was used. 7.5 endotracheal tube was threaded over the top of that. Blue bougie was then pulled, Ambu bag state pilot cuff was inflated. Ambu was done at that time. Endotracheal tube was secured at 23 cm at the teeth. Bilateral breath sounds were noted by the respiratory therapist. Tube was then secured by the respiratory therapist and was placed on the ventilator per Respiratory therapy. Did have positive color changes also noted immediately after intubation on end-tidal CO2 detector. The patient's saturations did drop down into the high 70s approximately 78%, but immediately came up into the low 90s after intubation. Blood pressure was stable throughout. Lowest systolic blood pressure was noted to be in the 120s. I then turned my attention to arterial line placement. Arterial line placement was very difficult. Tried a couple of times on her left radial without success. Moved over to her right radial, attempted a couple of times. By palpation, I was unable to get an arterial line placement there, tried a couple of times more on the right side using an ultrasound without success. I then went back over to the left side with the ultrasound. ChloraPrep was used to clean the skin prior to every attempt. Using ultrasound on the left side, I was able to finally place a 22-gauge Arrow catheter into her left radial. Positive blood flow was noted immediately. Catheter was then hooked up to a pressure monitor and a good blood pressure pleth was noted on the monitor. I then secured the arterial line using a 2-0 Prolene and then Tegaderm and tape. After arterial line was done and everything was good, I then inserted an 18-gauge peripheral IV in her right upper arm using ultrasound also. The patient tolerated everything without difficulty. Please refer to the nurse's notes for vital signs. Sesar Velasquez CRNA /[id number]
[2020-07-27] MEDS: Piperacillin/Tazobactam/Dext 3.375 GM in Premix Bag 1 BAG IV SCH ×4 (04:48→22:28)
[2020-07-27] MEDS ORDERED: Propofol 200 MG/20 ML SDV ONE (07:05)
[2020-07-27] MEDS ORDERED: Succinylcholine 200 MG/10 ML MDV ONE (07:05)
[2020-07-27] MEDS: Lactated Ringers 1,000 ML IV SCH (08:12)
[2020-07-27] MEDS: Insulin Lispro 100 Unit/ML 3 ML KwikPen SUBCUT SCH ×4 (08:20→20:53)
[2020-07-27] MEDS: Pantoprazole 40 MG Tab.CR PO SCH (08:50)
[2020-07-27] MEDS: LORazepam 2 MG/ML SDV IVPUSH PRN (10:05)
[2020-07-27] MEDS: Gabapentin 400 MG Cap PO SCH ×3 (11:02→20:17)
[2020-07-27] MEDS: tiZANidine 2 MG Tab PO SCH ×3 (11:02→20:17)
[2020-07-27] MEDS: Ibuprofen 800 MG Tab PO SCH ×2 (11:02→20:17)
[2020-07-27] MEDS: Magnesium Oxide 400 MG Tab PO SCH ×2 (11:02→20:17)
[2020-07-27] MEDS: OLANZapine 5 MG Tab PO SCH (11:02)
[2020-07-27] MEDS: LORazepam 1 MG Tab PO SCH ×3 (11:03→20:17)
[2020-07-27] MEDS: Estradiol 0.5 MG Tab PO SCH (11:03)
[2020-07-27] MEDS: Citalopram 20 MG Tab PO SCH (11:03)
--- NOTE | 2020-07-27 12:31 | PCM.PN ---
- General Info Date of Service: 07/27/20 Subjective Update: Ms. Shane's progressive respiratory failure through the day yesterday and required intubation early this morning. She has stabilized since intubation, FiO2 has been decreased from 100% down to 60%. She is currently sedated and unable to provide meaningful history concerning recent symptoms or review of systems. She is remained hemodynamically stable and afebrile. White blood cell count is in increased modestly since yesterday and is now 18,000. - Patient Data Vitals - Most Recent: Last Vital Signs Temp 98.9 F 07/27/20 11:30 Pulse 72 07/27/20 11:30 Resp 20 07/27/20 11:30 BP 100/56 L 07/27/20 11:30 Pulse Ox 96 07/27/20 11:30 Weight - Most Recent: 288 lb 9.6 oz I&O - Last 24 Hours: Intake & Output 07/26/20 07/27/20 07/27/20 22:59 06:59 14:59 Intake Total 1796 869 Output Total 120 50 140 Balance 1676 819 -140 Lab Results Last 24 Hours: Laboratory Results - last 24 hr 07/27/20 07/27/20 07/27/20 Range/Units 02:00 04:23 05:00 WBC 18.7 H (4.5-11.0) K/uL RBC 3.27 L (3.30-5.50) M/uL Hgb 10.1 L (12.0-15.0) g/dL Hct 31.6 L (36.0-48.0) % MCV 97 (80-98) fL MCH 31 (27-31) pg MCHC 32 (32-36) % Plt Count 313 (150-400) K/uL Neut % (Auto) 87 H (36-66) % Lymph % (Auto) 4 L (24-44) % [place] % (Auto) 8 H (2-6) % Eos % (Auto) 0 L (2-4) % Baso % (Auto) 0 (0-1) % Puncture Site A-line ABG pH 7.311 L (7.350-7.450) ABG pCO2 54.2 H (35.0-42.0) mmHg ABG pO2 83.3 (75.0-100.0) mmHg ABG HCO3 26.6 H (22.0-26.0) mmol/L ABG Total CO2 24.9 (21.0-25.0) mmol/L ABG O2 Saturation 95.0 (95.0-98.0) % ABG O2 Content 14.1 L (15.0-23.0) %vol ABG Base Excess 0.2 mm/L ABG Hemoglobin 10.8 L (12.0-16.0) g/dL ABG Oxyhemoglobin 92.3 % ABG Carboxyhemoglobin 1.5 (0.0-1.6) % ABG Methemoglobin 1.3 % Ramy Test A-line O2 Delivery Device Ventilator Oxygen Flow Rate L Sodium 142 (140-148) mmol/L Potassium 4.0 (3.6-5.2) mmol/L Chloride 105 (100-108) mmol/L Carbon Dioxide 26 (21-32) mmol/L Anion Gap 11.0 (5.0-14.0) mmol/L BUN 11 (7-18) mg/dL Creatinine 1.0 (0.6-1.0) mg/dL Est Cr Clr Drug Dosing 65.84 mL/min Estimated GFR (MDRD) > 60 (>60) Glucose 180 H (74-106) mg/dL Calcium 8.0 L (8.5-10.1) mg/dL Vancomycin Trough (10.0-20.0) ug/mL 07/27/20 07/27/20 Range/Units 09:22 09:22 WBC (4.5-11.0) K/uL RBC (3.30-5.50) M/uL Hgb (12.0-15.0) g/dL Hct (36.0-48.0) % MCV (80-98) fL MCH (27-31) pg MCHC (32-36) % Plt Count (150-400) K/uL Neut % (Auto) (36-66) % Lymph % (Auto) (24-44) % [place] % (Auto) (2-6) % Eos % (Auto) (2-4) % Baso % (Auto) (0-1) % Puncture Site A-line ABG pH 7.374 (7.350-7.450) ABG pCO2 48.1 H (35.0-42.0) mmHg ABG pO2 72.7 L (75.0-100.0) mmHg ABG HCO3 27.4 H (22.0-26.0) mmol/L ABG Total CO2 25.6 H (21.0-25.0) mmol/L ABG O2 Saturation 92.3 L (95.0-98.0) % ABG O2 Content 13.0 L (15.0-23.0) %vol ABG Base Excess 2.3 mm/L ABG Hemoglobin 10.1 L (12.0-16.0) g/dL ABG Oxyhemoglobin 91.1 % ABG Carboxyhemoglobin 0.5 (0.0-1.6) % ABG Methemoglobin 0.8 % Ramy Test A-line O2 Delivery Device Nasal cannula Oxygen Flow Rate L Sodium (140-148) mmol/L Potassium (3.6-5.2) mmol/L Chloride (100-108) mmol/L Carbon Dioxide (21-32) mmol/L Anion Gap (5.0-14.0) mmol/L BUN (7-18) mg/dL Creatinine (0.6-1.0) mg/dL Est Cr Clr Drug Dosing mL/min Estimated GFR (MDRD) (>60) Glucose (74-106) mg/dL Calcium (8.5-10.1) mg/dL Vancomycin Trough 22.7 H (10.0-20.0) ug/mL [place] Results Last 24 Hours: Microbiology 07/23/20 11:20 Aerobic Blood Culture - Preliminary Blood - Venous - Iv Start NO GROWTH AFTER 4 DAYS Anaerobic Blood Culture - Preliminary NO GROWTH AFTER 4 DAYS 07/27/20 01:45 Gram Stain - Final Sputum - Induced Med Orders - Current: Current Medications Acetaminophen (Tylenol) 650 mg PO Q4H PRN PRN Reason: Pain (Mild 1-3)/fever Last Admin: 07/25/20 20:13 Dose: 650 mg Documented by: Albuterol (Proventil Neb Soln) 2.5 mg NEB Q4H PRN PRN Reason: Shortness Of Breath/wheezing Last Admin: 07/26/20 21:49 Dose: 2.5 mg Documented by: Citalopram Hydrobromide (Celexa) 40 mg PO DAILY [place] Last Admin: 07/27/20 11:03 Dose: Not Given Documented by: Dextrose (Glutose 15) 15 gm PO ONETIME PRN PRN Reason: Hypoglycemia Dextrose/Water (Dextrose 50% In Water) 50 ml IV ONETIME PRN PRN Reason: Hypoglycemia Enoxaparin Sodium (Lovenox) 40 mg SUBCUT Q24H [facility] Last Admin: 07/26/20 17:00 Dose: 40 mg Documented by: Estradiol (Estradiol) 0.5 mg PO DAILY [facility] Last Admin: 07/27/20 11:03 Dose: Not Given Documented by: Gabapentin (Neurontin) 400 mg PO TID [facility] Last Admin: 07/27/20 11:02 Dose: Not Given Documented by: Piperacillin/Tazobactam/ (Dextrose 3.375 gm/ Premix) 50 mls @ 100 mls/hr IV Q6H [facility] Last Admin: 07/27/20 11:17 Dose: 100 mls/hr Documented by: Levofloxacin/Dextrose 750 mg/ (Premix) 150 mls @ 100 mls/hr IV Q24H [facility] Last Admin: 07/26/20 16:03 Dose: 100 mls/hr Documented by: Heparin Sodium (Porcine) 5,000 (units/ Sodium Chloride) 501 mls @ 0 mls/hr IV ASDIRECTED [facility] Last Admin: 07/27/20 01:46 Dose: 1 mls/hr Documented by: Propofol (Diprivan 100 Ml) 100 mls @ 15.709 mls/hr IV TITRATE [facility]; Protocol Last Titration: 07/27/20 10:25 Dose: 20 mcg/kg/min, 15.709 mls/hr Documented by: Vancomycin HCl 1.5 gm/ Sodium (Chloride) 250 mls @ 166.667 mls/hr IV Q8H [facility] Ibuprofen (Motrin) 800 mg PO BID [facility] Last Admin: 07/27/20 11:02 Dose: Not Given Documented by: Ibuprofen (Motrin) 400 mg PO Q8H PRN PRN Reason: Fever Last Admin: 07/26/20 14:54 Dose: 400 mg Documented by: Insulin Human Lispro (Humalog) 0 unit SUBCUT QIDACANDBED [facility]; Protocol Last Admin: 07/27/20 11:25 Dose: Not Given Documented by: Lorazepam (Ativan) 1 mg PO TID [facility] Last Admin: 07/27/20 11:03 Dose: Not Given Documented by: Lorazepam (Ativan) 0.5 mg IVPUSH Q2H PRN PRN Reason: Anxiety Last Admin: 07/27/20 10:05 Dose: 0.5 mg Documented by: Magnesium Oxide (Magnesium Oxide) 400 mg PO BID [facility] Last Admin: 07/27/20 11:02 Dose: Not Given Documented by: Olanzapine (Zyprexa) 15 mg PO DAILY [facility] Last Admin: 07/27/20 11:02 Dose: Not Given Documented by: Olanzapine (Zyprexa) 15 mg PO DAILY@1500 PRN PRN Reason: * Last Admin: 07/25/20 08:40 Dose: 15 mg Documented by: Ondansetron HCl (Zofran) 4 mg IV Q4H PRN PRN Reason: Nausea/Vomiting Last Admin: 07/26/20 22:52 Dose: 4 mg Documented by: Oxycodone HCl (Oxycodone) 5 mg PO Q4H PRN PRN Reason: Pain (moderate 4-6) Last Admin: 07/26/20 20:30 Dose: 5 mg Documented by: Pantoprazole Sodium (Protonix) 40 mg PO ACBREAKFAST [facility] Last Admin: 07/27/20 08:50 Dose: Not Given Documented by: Clozapine 200mg (Ptom) 0 each PO BEDTIME [facility] Last Admin: 07/26/20 20:31 Dose: 1 each Documented by: Polyethylene Glycol (Miralax) 17 gm PO DAILY PRN PRN Reason: Constipation Ropinirole HCl (Requip) 1 mg PO BEDTIME [facility] Last Admin: 07/26/20 20:32 Dose: 1 mg Documented by: Sodium Chloride (Saline Flush) 10 ml FLUSH ASDIRECTED PRN PRN Reason: Keep Vein Open Tizanidine HCl (Zanaflex) 2 mg PO TID [facility] Last Admin: 07/27/20 11:02 Dose: Not Given Documented by: Discontinued Medications Heparin Sodium (Porcine) (Heparin Sodium) Confirm Administered Dose 5,000 units .ROUTE .STK-MED ONE Stop: 07/27/20 00:57 Last Admin: 07/27/20 01:55 Dose: Not Given Documented by: Lactated Ringer's (Ringers, Lactated) 1,000 mls @ 999 mls/hr IV ASDIRECTED [facility] Azithromycin 500 mg/ Sodium (Chloride) 250 mls @ 250 mls/hr IV Q24H [facility] Last Admin: 07/23/20 11:42 Dose: 250 mls/hr Documented by: Sodium Chloride (Normal Saline) 1,000 mls @ 999 mls/hr IV ASDIRECTED [facility] Last Admin: 07/23/20 11:41 Dose: 999 mls/hr Documented by: Ceftriaxone Sodium 1 gm/ (Sodium Chloride) 50 mls @ 100 mls/hr IV ONETIME ONE Stop: 07/23/20 11:04 Last Admin: 07/23/20 11:43 Dose: 100 mls/hr Documented by: Sodium Chloride (Normal Saline) 100 mls @ 3 mls/sec IV ONETIME ONE Stop: 07/23/20 12:21 Last Admin: 07/23/20 14:00 Dose: 3 mls/sec Documented by: Lactated Ringer's (Ringers, Lactated) 1,000 mls @ 125 mls/hr IV ASDIRECTED [facility] Last Admin: 07/24/20 07:17 Dose: 125 mls/hr Documented by: Magnesium Sulfate 2 gm/ Premix 50 mls @ 25 mls/hr IV Q6H [facility] Stop: 07/24/20 16:59 Last Admin: 07/24/20 14:44 Dose: 25 mls/hr Documented by: Lactated Ringer's (Ringers, Lactated) 1,000 mls @ 75 mls/hr IV ASDIRECTED [facility] Last Admin: 07/24/20 20:59 Dose: 75 mls/hr Documented by: Lactated Ringer's (Ringers, Lactated) 1,000 mls @ 50 mls/hr IV ASDIRECTED [facility] Last Admin: 07/27/20 08:12 Dose: 50 mls/hr Documented by: Vancomycin HCl 1.75 gm/ Sodium (Chloride) 250 mls @ 166.667 mls/hr IV Q8H [facility] Last Admin: 07/27/20 11:15 Dose: 166.667 mls/hr Documented by: Propofol (Diprivan 100 Ml) Confirm Administered Dose 100 mls @ as directed .ROUTE .STK-MED ONE Stop: 07/27/20 01:18 Last Admin: 07/27/20 01:43 Dose: Not Given Documented by: Iopamidol (Isovue-370 (76%)) 100 ml IV . DIRECTED [facility] Last Admin: 07/23/20 14:00 Dose: 100 ml Documented by: Lorazepam (Ativan) Confirm Administered Dose 2 mg .ROUTE .STK-MED ONE Stop: 07/26/20 23:52 Last Admin: 07/26/20 23:55 Dose: Not Given Documented by: Propofol (Diprivan 20 Ml) Confirm Administered Dose 200 mg .ROUTE .STK-MED ONE Stop: 07/27/20 07:06 Sodium Chloride (Saline Flush) 10 ml FLUSH ONETIME PRN PRN Reason: PER RADIOLOGY PROTOCOL Last Admin: 07/23/20 14:00 Dose: 10 ml Documented by: Succinylcholine Chloride (Quelicin) Confirm Administered Dose 200 mg .ROUTE .STK-MED ONE Stop: 07/27/20 07:06 - Exam Quality Assessment: Supplemental Oxygen (Ventilator), Urine Catheter, DVT Prophylaxis General: Sedated, Lethargic Lungs: Decreased Breath Sounds, Rhonchi. No: Rales, Stridor, Wheezing Cardiovascular: Regular Rate, Regular Rhythm, No Murmurs GI/Abdominal Exam: Soft, Non-Tender, No Organomegaly, No Distention Extremities: Non-Tender, Pedal Edema Sepsis Event Note - Evaluation Sepsis Screening Result: No Definite Risk - Focused Exam Vital Signs: Vital Signs Temp Pulse Resp BP Pulse Ox 07/27/20 11:30 98.9 F 72 20 100/56 L 96 07/27/20 08:00 99.3 F 72 17 95/57 L 95 07/27/20 07:07 75 19 90/52 L 07/27/20 06:00 79 18 91/56 L 94 L 07/27/20 05:00 80 19 96/54 L 95 07/27/20 04:00 80 16 98/52 L 96 07/27/20 03:00 80 18 103/55 L 96 07/27/20 02:00 97.6 F 88 22 H 104/56 L 91 L 07/27/20 01:30 112 H 22 H 93/61 90 L 07/27/20 01:20 118 H 25 H 159/83 H 87 L 07/27/20 01:10 102 H 51 H 141/88 H 93 L 07/27/20 01:00 102 H 52 H 127/90 91 L - Problem List Review Problem List Initiated/Reviewed/Updated: Yes - My Orders Last 24 Hours: My Active Orders 07/26/20 23:42 LORazepam [Ativan] 0.5 mg IVPUSH Q2H PRN 07/27/20 01:00 Heparin Sodium 5,000 units Sodium Chloride 0.9% [Normal Saline] 500 ml IV ASDIRECTED 07/27/20 01:14 Chest 1V Frontal [CR] Stat 07/27/20 01:30 Mechanical Ventilation [RT Ventilator, Adult] [RC] Q2H 07/27/20 01:33 RASS Sedation Scale [RC] ASDIRECTED Desired Level of Sedation (RASS) [AST] Click to Edit 07/27/20 01:45 CULTURE RESPIRATORY + SMEAR [RM] Routine propofoL [Diprivan 100 ML] 100 ml IV TITRATE 07/27/20 02:04 Nrsg Assess Restraint Init/Mon [RC] Q2H 07/27/20 02:05 Urinary Catheter Assessment [RC] ASDIRECTED 07/27/20 02:15 Welch Catheter Insertion [Insert Urinary Catheter] [OM.PC] Q24H Initiate/Renew Non-Violent Restraints (All Ages) Q24H 07/27/20 12:18 MAGNESIUM [CHEM] Stat 07/27/20 17:00 BASIC METABOLIC PANEL,BMP [CHEM] Stat BLOOD GAS ARTERIAL [BG] Stat 07/27/20 20:00 Vancomycin 1.5 gm Sodium Chloride 0.9% [Normal Saline] 250 ml IV Q8H 07/28/20 05:00 BLOOD GAS ARTERIAL [BG] Timed CBC WITH AUTO DIFF [HEME] Timed COMPREHENSIVE METABOLIC PN,CMP [CHEM] Timed 07/28/20 05:11 CXR [Chest 1V Frontal] [CR] AM 07/28/20 07:30 GLUCOSE POC LAB TO COLLECT JPM [POC] QIDACANDBED 07/28/20 11:30 GLUCOSE POC LAB TO COLLECT JPM [POC] QIDACANDBED 07/29/20 05:11 CXR [Chest 1V Frontal] [CR] AM 07/30/20 05:11 CXR [Chest 1V Frontal] [CR] AM 07/31/20 05:11 CXR [Chest 1V Frontal] [CR] AM - Plan Plan:: ASSESSMENT AND PLAN BILATERAL PNEUMONIA WITH SEPSIS-she developed further respiratory compromise during the night requiring intubation and mechanical ventilation. She has remained afebrile, white blood cell count has increased modestly since yesterday. -Sputum culture pending -Continue IV vancomycin, Zosyn and levofloxacin -Saline lock IV -Blood cultures pending HYPOXIC AND HYPERCAPNIC RESPIRATORY FAILURE-secondary to bilateral pneumonia and probable component of ARDS -Continue mechanical ventilation with current settings -Nebulized albuterol as needed TYPE 2 DIABETES MELLITUS -Hold metformin -4 times daily glucometers -Low-dose sliding scale Humalog MAINTENANCE ISSUES -DVT prophylaxis; Lovenox 40 mg subcu daily -GI prophylaxis; Protonix 40 mg IV daily -Welch catheter; used to monitor urine output during intubation -Nutrition; n.p.o. -Nicotine dependence; not required CODE STATUS-FULL CODE ADMISSION STATUS-patient will be admitted to inpatient status, expect at least a 2 night hospital stay for evaluation and management of problems as outlined above. At the time of this admission I do not reasonably expected evaluation and management of this problem will require more than a 96 hour hospital stay. DISPOSITION-anticipate discharge to home after the hospital stay. PRIMARY CARE PROVIDER-Dr. Loza
[2020-07-27] MEDS ORDERED: Sodium Chloride 0.9% 10 ML Syringe FLUSH ONE (13:45)
[2020-07-27] MEDS ORDERED: Sodium Chloride 0.9% 90 ML IV SCH (13:45)
[2020-07-27] MEDS ORDERED: Iopamidol 755 Mg/ML 100 ML Bottle IV SCH (13:45)
[2020-07-27] MEDS: Pantoprazole 40 MG Vial IVPUSH SCH (14:09)
[2020-07-27] MEDS: Scopolamine 1.5 MG Transdermal Patch TRDERM SCH (15:26)
--- NOTE | 2020-07-27 15:53 | CRLCT ---
INDICATION: Respiratory failure. Morbid obesity. Intubated. TECHNIQUE: Contrast-enhanced chest CT performed using the angiographic protocol. COMPARISON: Correlation is made with a portable chest x-ray from the same date. FINDINGS: Endotracheal tube tip 3 cm above the caio. Respiratory motion artifact degrades image quality. There is no overt evidence for main central pulmonary emboli. More peripheral emboli cannot be excluded. Small bilateral pleural effusions right slightly greater than left. Diffuse widespread pulmonary infiltrates predominantly in the upper lobes with less involvement of the right middle lobe. There are infiltrates with atelectasis involving both lung bases. Infection or inflammation is in the differential. The pattern and appearance would not be entirely consistent with COVID-19. No thoracic or upper abdominal lymphadenopathy. No splenomegaly. The included adrenal glands are unremarkable. The included upper to mid kidneys are within normal limits. The included skeleton is negative for acute fractures. IMPRESSION: 1. Widespread pulmonary infiltrates compatible with infection or inflammation. Edema related to underlying heart disease could not be entirely excluded. 2. Endotracheal tube tip in good position. 3. No thoracic aortic aneurysm or dissection. 4. Small pleural effusions. Please note that all CT scans at this facility use dose modulation, iterative reconstruction, and/or weight-based dosing when appropriate to reduce radiation dose to as low as reasonably achievable. Dictated by Davide Estrada MD @ Jul 27 2020 3:42PM Signed by Dr. Davide Estrada @ Jul 27 2020 3:51PM
[2020-07-27] MEDS: Levofloxacin/Dextrose 5%-Water 750 MG in Premix Bag 1 BAG IV SCH (16:47)
[2020-07-27] MEDS: Enoxaparin 40 MG/0.4 ML Syringe SUBCUT SCH (16:55)
[2020-07-27] MEDS: rOPINIRole 1 MG Tab PO SCH (20:17)
[2020-07-27] MEDS: CLOZAPINE 200 MG PO SCH (20:17)
[2020-07-28] MEDS: propofoL 100 ML IV SCH ×7 (01:42→22:31)
[2020-07-28] MEDS: Piperacillin/Tazobactam/Dext 3.375 GM in Premix Bag 1 BAG IV SCH ×4 (04:46→22:15)
[2020-07-28] MEDS: Ibuprofen 800 MG Tab PO SCH (08:07)
[2020-07-28] MEDS: Magnesium Oxide 400 MG Tab PO SCH (08:07)
[2020-07-28] MEDS: Estradiol 0.5 MG Tab PO SCH (08:07)
[2020-07-28] MEDS: LORazepam 1 MG Tab PO SCH (08:07)
[2020-07-28] MEDS: Citalopram 20 MG Tab PO SCH (08:07)
[2020-07-28] MEDS: tiZANidine 2 MG Tab PO SCH (08:08)
[2020-07-28] MEDS: Gabapentin 400 MG Cap PO SCH (08:08)
[2020-07-28] MEDS: OLANZapine 5 MG Tab PO SCH (08:08)
[2020-07-28] MEDS: Insulin Lispro 100 Unit/ML 3 ML KwikPen SUBCUT SCH ×4 (08:18→21:13)
[2020-07-28] MEDS: SCOPOLAMINE PATCH CHECK TOP SCH (08:24)
--- NOTE | 2020-07-28 11:13 | PCM.PN ---
- General Info Date of Service: 07/28/20 Subjective Update: Ms. Shane continues to require mechanical ventilation for management of acute hypoxic and hypercapnic respiratory failure. She has been stable on the ventilator over the past 24 hours, with no evidence of significant worsening. She has developed acute kidney injury with increased creatinine. This appears to be stabilizing and urine output improving. She remains sedated and is unable to provide a meaningful history concerning recent symptoms or review of systems. White blood cell count is modestly improved today and she has remained afebrile with good vital signs. - Patient Data Vitals - Most Recent: Last Vital Signs Temp 99.6 F 07/28/20 06:00 Pulse 78 07/28/20 06:00 Resp 21 H 07/28/20 06:00 BP 126/73 07/28/20 06:00 Pulse Ox 93 L 07/28/20 06:00 Weight - Most Recent: 288 lb 9.6 oz I&O - Last 24 Hours: Intake & Output 07/27/20 07/28/20 07/28/20 22:59 06:59 14:59 Intake Total 1342 516 Output Total 360 525 280 Balance 982 -9 -280 Lab Results Last 24 Hours: Laboratory Results - last 24 hr 07/27/20 07/27/20 07/27/20 Range/Units 09:22 13:08 16:48 WBC (4.5-11.0) K/uL RBC (3.30-5.50) M/uL Hgb (12.0-15.0) g/dL Hct (36.0-48.0) % MCV (80-98) fL MCH (27-31) pg MCHC (32-36) % Plt Count (150-400) K/uL Neut % (Auto) (36-66) % Lymph % (Auto) (24-44) % [place] % (Auto) (2-6) % Eos % (Auto) (2-4) % Baso % (Auto) (0-1) % Puncture Site A-line ABG pH 7.354 (7.350-7.450) ABG pCO2 49.0 H (35.0-42.0) mmHg ABG pO2 75.8 (75.0-100.0) mmHg ABG HCO3 26.6 H (22.0-26.0) mmol/L ABG Total CO2 23.7 (21.0-25.0) mmol/L ABG O2 Saturation 94.2 L (95.0-98.0) % ABG O2 Content 18.0 (15.0-23.0) %vol ABG Base Excess 0.9 mm/L ABG Hemoglobin 13.9 (12.0-16.0) g/dL ABG Oxyhemoglobin 91.9 % ABG Carboxyhemoglobin 1.3 (0.0-1.6) % ABG Methemoglobin 1.1 % Ramy Test Not performed O2 Delivery Device Ventilator Oxygen Flow Rate L Sodium (140-148) mmol/L Potassium (3.6-5.2) mmol/L Chloride (100-108) mmol/L Carbon Dioxide (21-32) mmol/L Anion Gap (5.0-14.0) mmol/L BUN (7-18) mg/dL Creatinine (0.6-1.0) mg/dL Est Cr Clr Drug Dosing mL/min Estimated GFR (MDRD) (>60) Glucose (74-106) mg/dL Calcium (8.5-10.1) mg/dL Magnesium 1.9 (1.8-2.4) mg/dL Total Bilirubin (0.2-1.0) mg/dL AST (15-37) U/L ALT (12-78) U/L Alkaline Phosphatase (46-116) U/L Total Protein (6.4-8.2) g/dL Albumin (3.4-5.0) g/dL Globulin (2.3-3.5) g/dL Albumin/Globulin Ratio (1.2-2.2) SARS-CoV-2 RNA (BAILEY) Negative (NEGATIVE) 07/27/20 07/28/20 07/28/20 Range/Units 16:49 04:25 04:25 WBC 17.6 H (4.5-11.0) K/uL RBC 3.22 L (3.30-5.50) M/uL Hgb 9.8 L (12.0-15.0) g/dL Hct 31.1 L (36.0-48.0) % MCV 97 (80-98) fL MCH 30 (27-31) pg MCHC 32 (32-36) % Plt Count 306 (150-400) K/uL Neut % (Auto) 82 H (36-66) % Lymph % (Auto) 6 L (24-44) % [place] % (Auto) 11 H (2-6) % Eos % (Auto) 1 L (2-4) % Baso % (Auto) 0 (0-1) % Puncture Site A-line ABG pH 7.391 (7.350-7.450) ABG pCO2 39.6 (35.0-42.0) mmHg ABG pO2 98.5 (75.0-100.0) mmHg ABG HCO3 23.5 (22.0-26.0) mmol/L ABG Total CO2 21.9 (21.0-25.0) mmol/L ABG O2 Saturation 95.9 (95.0-98.0) % ABG O2 Content 13.5 L (15.0-23.0) %vol ABG Base Excess -0.7 mm/L ABG Hemoglobin 10.1 L (12.0-16.0) g/dL ABG Oxyhemoglobin 93.7 % ABG Carboxyhemoglobin 1.4 (0.0-1.6) % ABG Methemoglobin 0.9 % Ramy Test A-line O2 Delivery Device Ventilator Oxygen Flow Rate L Sodium 143 (140-148) mmol/L Potassium 4.0 (3.6-5.2) mmol/L Chloride 106 (100-108) mmol/L Carbon Dioxide 26 (21-32) mmol/L Anion Gap 10.9 (5.0-14.0) mmol/L BUN 17 D (7-18) mg/dL Creatinine 2.0 H D (0.6-1.0) mg/dL Est Cr Clr Drug Dosing 32.92 mL/min Estimated GFR (MDRD) 27 L (>60) Glucose 125 H (74-106) mg/dL Calcium 8.1 L (8.5-10.1) mg/dL Magnesium (1.8-2.4) mg/dL Total Bilirubin (0.2-1.0) mg/dL AST (15-37) U/L ALT (12-78) U/L Alkaline Phosphatase (46-116) U/L Total Protein (6.4-8.2) g/dL Albumin (3.4-5.0) g/dL Globulin (2.3-3.5) g/dL Albumin/Globulin Ratio (1.2-2.2) SARS-CoV-2 RNA (BAILEY) (NEGATIVE) 07/28/20 Range/Units 04:25 WBC (4.5-11.0) K/uL RBC (3.30-5.50) M/uL Hgb (12.0-15.0) g/dL Hct (36.0-48.0) % MCV (80-98) fL MCH (27-31) pg MCHC (32-36) % Plt Count (150-400) K/uL Neut % (Auto) (36-66) % Lymph % (Auto) (24-44) % [place] % (Auto) (2-6) % Eos % (Auto) (2-4) % Baso % (Auto) (0-1) % Puncture Site ABG pH (7.350-7.450) ABG pCO2 (35.0-42.0) mmHg ABG pO2 (75.0-100.0) mmHg ABG HCO3 (22.0-26.0) mmol/L ABG Total CO2 (21.0-25.0) mmol/L ABG O2 Saturation (95.0-98.0) % ABG O2 Content (15.0-23.0) %vol ABG Base Excess mm/L ABG Hemoglobin (12.0-16.0) g/dL ABG Oxyhemoglobin % ABG Carboxyhemoglobin (0.0-1.6) % ABG Methemoglobin % Ramy Test O2 Delivery Device Oxygen Flow Rate L Sodium 145 (140-148) mmol/L Potassium 3.9 (3.6-5.2) mmol/L Chloride 107 (100-108) mmol/L Carbon Dioxide 23 (21-32) mmol/L Anion Gap 15.2 H (5.0-14.0) mmol/L BUN 21 H (7-18) mg/dL Creatinine 2.5 H (0.6-1.0) mg/dL Est Cr Clr Drug Dosing 26.34 mL/min Estimated GFR (MDRD) 21 L (>60) Glucose 122 H (74-106) mg/dL Calcium 8.0 L (8.5-10.1) mg/dL Magnesium (1.8-2.4) mg/dL Total Bilirubin 1.5 H D (0.2-1.0) mg/dL AST 39 H (15-37) U/L ALT 41 (12-78) U/L Alkaline Phosphatase 107 (46-116) U/L Total Protein 6.0 L (6.4-8.2) g/dL Albumin 2.1 L (3.4-5.0) g/dL Globulin 3.9 H (2.3-3.5) g/dL Albumin/Globulin Ratio 0.5 L (1.2-2.2) SARS-CoV-2 RNA (BAILEY) (NEGATIVE) [place] Results Last 24 Hours: Microbiology 07/27/20 01:45 Gram Stain - Final Sputum - Induced Respiratory Culture - Preliminary 07/23/20 11:20 Aerobic Blood Culture - Preliminary Blood - Venous - Iv Start NO GROWTH AFTER 4 DAYS Anaerobic Blood Culture - Preliminary NO GROWTH AFTER 4 DAYS Med Orders - Current: Current Medications Acetaminophen (Tylenol) 650 mg PO Q4H PRN PRN Reason: Pain (Mild 1-3)/fever Last Admin: 07/25/20 20:13 Dose: 650 mg Documented by: Albuterol (Proventil Neb Soln) 2.5 mg NEB Q4H PRN PRN Reason: Shortness Of Breath/wheezing Last Admin: 07/26/20 21:49 Dose: 2.5 mg Documented by: Citalopram Hydrobromide (Celexa) 40 mg PO DAILY [facility] Last Admin: 07/28/20 08:07 Dose: Not Given Documented by: Dextrose (Glutose 15) 15 gm PO ONETIME PRN PRN Reason: Hypoglycemia Dextrose/Water (Dextrose 50% In Water) 50 ml IV ONETIME PRN PRN Reason: Hypoglycemia Enoxaparin Sodium (Lovenox) 40 mg SUBCUT Q24H [facility] Last Admin: 07/27/20 16:55 Dose: 40 mg Documented by: Estradiol (Estradiol) 0.5 mg PO DAILY [facility] Last Admin: 07/28/20 08:07 Dose: Not Given Documented by: Gabapentin (Neurontin) 400 mg PO TID [facility] Last Admin: 07/28/20 08:08 Dose: Not Given Documented by: Piperacillin/Tazobactam/ (Dextrose 3.375 gm/ Premix) 50 mls @ 100 mls/hr IV Q6H [facility] Last Admin: 07/28/20 04:46 Dose: 100 mls/hr Documented by: Heparin Sodium (Porcine) 5,000 (units/ Sodium Chloride) 501 mls @ 0 mls/hr IV ASDIRECTED [facility] Last Admin: 07/27/20 01:46 Dose: 1 mls/hr Documented by: Propofol (Diprivan 100 Ml) 100 mls @ 15.709 mls/hr IV TITRATE [facility]; Protocol Last Admin: 07/28/20 10:27 Dose: 35 mcg/kg/min, 27.49 mls/hr Documented by: Vancomycin HCl 1.5 gm/ Sodium (Chloride) 250 mls @ 166.667 mls/hr IV Q8H [facility] Last Admin: 07/28/20 03:12 Dose: 166.667 mls/hr Documented by: Levofloxacin/Dextrose 750 mg/ (Premix) 150 mls @ 100 mls/hr IV Q48H [facility] Ibuprofen (Motrin) 800 mg PO BID [facility] Last Admin: 07/28/20 08:07 Dose: Not Given Documented by: Ibuprofen (Motrin) 400 mg PO Q8H PRN PRN Reason: Fever Last Admin: 07/26/20 14:54 Dose: 400 mg Documented by: Insulin Human Lispro (Humalog) 0 unit SUBCUT QIDACANDBED [facility]; Protocol Last Admin: 07/28/20 08:18 Dose: Not Given Documented by: Lorazepam (Ativan) 1 mg PO TID [facility] Last Admin: 07/28/20 08:07 Dose: Not Given Documented by: Lorazepam (Ativan) 0.5 mg IVPUSH Q2H PRN PRN Reason: Anxiety Last Admin: 07/27/20 10:05 Dose: 0.5 mg Documented by: Magnesium Oxide (Magnesium Oxide) 400 mg PO BID [facility] Last Admin: 07/28/20 08:07 Dose: Not Given Documented by: Scopolamine Patch (Check) 1 each TOP DAILY [facility] Stop: 07/29/20 09:01 Last Admin: 07/28/20 08:24 Dose: Not Given Documented by: Olanzapine (Zyprexa) 15 mg PO DAILY [facility] Last Admin: 07/28/20 08:08 Dose: Not Given Documented by: Olanzapine (Zyprexa) 15 mg PO DAILY@1500 PRN PRN Reason: * Last Admin: 07/25/20 08:40 Dose: 15 mg Documented by: Ondansetron HCl (Zofran) 4 mg IV Q4H PRN PRN Reason: Nausea/Vomiting Last Admin: 07/26/20 22:52 Dose: 4 mg Documented by: Oxycodone HCl (Oxycodone) 5 mg PO Q4H PRN PRN Reason: Pain (moderate 4-6) Last Admin: 07/26/20 20:30 Dose: 5 mg Documented by: Pantoprazole Sodium (Protonix Iv) 40 mg IVPUSH Q24H [facility] Last Admin: 07/27/20 14:09 Dose: 40 mg Documented by: Clozapine 200mg (Ptom) 0 each PO BEDTIME [facility] Last Admin: 07/27/20 20:17 Dose: Not Given Documented by: Polyethylene Glycol (Miralax) 17 gm PO DAILY PRN PRN Reason: Constipation Ropinirole HCl (Requip) 1 mg PO BEDTIME [facility] Last Admin: 07/27/20 20:17 Dose: Not Given Documented by: Scopolamine (Transderm-Scop) 1.5 mg TRDERM Q72H [facility] Last Admin: 07/27/20 15:26 Dose: 1.5 mg Documented by: Sodium Chloride (Saline Flush) 10 ml FLUSH ASDIRECTED PRN PRN Reason: Keep Vein Open Tizanidine HCl (Zanaflex) 2 mg PO TID [facility] Last Admin: 07/28/20 08:08 Dose: Not Given Documented by: Discontinued Medications Heparin Sodium (Porcine) (Heparin Sodium) Confirm Administered Dose 5,000 units .ROUTE .STK-MED ONE Stop: 07/27/20 00:57 Last Admin: 07/27/20 01:55 Dose: Not Given Documented by: Lactated Ringer's (Ringers, Lactated) 1,000 mls @ 999 mls/hr IV ASDIRECTED [facility] Azithromycin 500 mg/ Sodium (Chloride) 250 mls @ 250 mls/hr IV Q24H [facility] Last Admin: 07/23/20 11:42 Dose: 250 mls/hr Documented by: Sodium Chloride (Normal Saline) 1,000 mls @ 999 mls/hr IV ASDIRECTED [facility] Last Admin: 07/23/20 11:41 Dose: 999 mls/hr Documented by: Ceftriaxone Sodium 1 gm/ (Sodium Chloride) 50 mls @ 100 mls/hr IV ONETIME ONE Stop: 07/23/20 11:04 Last Admin: 07/23/20 11:43 Dose: 100 mls/hr Documented by: Sodium Chloride (Normal Saline) 100 mls @ 3 mls/sec IV ONETIME ONE Stop: 07/23/20 12:21 Last Admin: 07/23/20 14:00 Dose: 3 mls/sec Documented by: Lactated Ringer's (Ringers, Lactated) 1,000 mls @ 125 mls/hr IV ASDIRECTED [facility] Last Admin: 07/24/20 07:17 Dose: 125 mls/hr Documented by: Levofloxacin/Dextrose 750 mg/ (Premix) 150 mls @ 100 mls/hr IV Q24H [facility] Last Admin: 07/27/20 16:47 Dose: 100 mls/hr Documented by: Magnesium Sulfate 2 gm/ Premix 50 mls @ 25 mls/hr IV Q6H [facility] Stop: 07/24/20 16:59 Last Admin: 07/24/20 14:44 Dose: 25 mls/hr Documented by: Lactated Ringer's (Ringers, Lactated) 1,000 mls @ 75 mls/hr IV ASDIRECTED [facility] Last Admin: 07/24/20 20:59 Dose: 75 mls/hr Documented by: Lactated Ringer's (Ringers, Lactated) 1,000 mls @ 50 mls/hr IV ASDIRECTED [facility] Last Admin: 07/27/20 08:12 Dose: 50 mls/hr Documented by: Vancomycin HCl 1.75 gm/ Sodium (Chloride) 250 mls @ 166.667 mls/hr IV Q8H [facility] Last Admin: 07/27/20 11:15 Dose: 166.667 mls/hr Documented by: Propofol (Diprivan 100 Ml) Confirm Administered Dose 100 mls @ as directed .ROUTE .STK-MED ONE Stop: 07/27/20 01:18 Last Admin: 07/27/20 01:43 Dose: Not Given Documented by: Sodium Chloride (Normal Saline) 90 mls @ 3 mls/sec IV ASDIRECTED [facility] Stop: 07/27/20 14:30 Last Admin: 07/27/20 15:05 Dose: 3 mls/sec Documented by: Iopamidol (Isovue-370 (76%)) 100 ml IV . DIRECTED [facility] Last Admin: 07/23/20 14:00 Dose: 100 ml Documented by: Iopamidol (Isovue-370 (76%)) 100 ml IV . DIRECTED [facility] Stop: 07/27/20 14:30 Last Admin: 07/27/20 15:04 Dose: 100 ml Documented by: Lorazepam (Ativan) Confirm Administered Dose 2 mg .ROUTE .STK-MED ONE Stop: 07/26/20 23:52 Last Admin: 07/26/20 23:55 Dose: Not Given Documented by: Pantoprazole Sodium (Protonix) 40 mg PO ACBREAKFAST [facility] Last Admin: 07/27/20 08:50 Dose: Not Given Documented by: Propofol (Diprivan 20 Ml) Confirm Administered Dose 200 mg .ROUTE .STK-MED ONE Stop: 07/27/20 07:06 Sodium Chloride (Saline Flush) 10 ml FLUSH ONETIME PRN PRN Reason: PER RADIOLOGY PROTOCOL Last Admin: 07/23/20 14:00 Dose: 10 ml Documented by: Sodium Chloride (Saline Flush) 10 ml FLUSH ONETIME ONE Stop: 07/27/20 13:46 Last Admin: 07/27/20 15:06 Dose: 10 ml Documented by: Succinylcholine Chloride (Quelicin) Confirm Administered Dose 200 mg .ROUTE .STK-MED ONE Stop: 07/27/20 07:06 - Exam Quality Assessment: Supplemental Oxygen (Ventilator), Urine Catheter, DVT Prophylaxis General: Sedated, Lethargic Lungs: Rhonchi. No: Crackles, Rales, Rub, Wheezing Cardiovascular: Regular Rhythm, No Murmurs, Tachycardia GI/Abdominal Exam: Soft, Non-Tender, No Organomegaly, No Distention Extremities: Pedal Edema Sepsis Event Note - Evaluation Sepsis Screening Result: No Definite Risk - Focused Exam Vital Signs: Vital Signs Temp Pulse Resp BP Pulse Ox 07/28/20 06:00 99.6 F 78 21 H 126/73 93 L 07/28/20 05:00 78 23 H 111/86 96 07/28/20 04:00 77 20 115/88 94 L 07/28/20 03:00 77 21 H 110/84 93 L 07/28/20 02:00 81 26 H 112/88 92 L 07/28/20 01:00 99.2 F 79 21 H 105/89 94 L 07/28/20 00:00 78 19 104/80 95 - Problem List Review Problem List Initiated/Reviewed/Updated: Yes - My Orders Last 24 Hours: My Active Orders 07/27/20 14:00 Pantoprazole [ProTONIX IV] 40 mg IVPUSH Q24H 07/27/20 15:00 Scopolamine [Transderm-Scop] 1.5 mg TRDERM Q72H 07/27/20 20:00 Vancomycin 1.5 gm Sodium Chloride 0.9% [Normal Saline] 250 ml IV Q8H 07/28/20 05:11 CXR [Chest 1V Frontal] [CR] AM 07/28/20 08:19 Initiate/Renew Non-Violent Restraints (All Ages) Q24H 07/28/20 09:00 Non-Formulary Medication [NF Drug] 1 each TOP DAILY 07/28/20 11:45 VANCOMYCIN TROUGH [CHEM] Routine 07/28/20 17:00 BASIC METABOLIC PANEL,BMP [CHEM] Stat BLOOD GAS ARTERIAL [BG] Stat 07/29/20 05:00 BLOOD GAS ARTERIAL [BG] Timed CBC WITH AUTO DIFF [HEME] Timed COMPREHENSIVE METABOLIC PN,CMP [CHEM] Timed 07/29/20 05:11 CXR [Chest 1V Frontal] [CR] AM 07/29/20 16:00 Levofloxacin/Dextrose 5%-Water [Levaquin in D5W 750 MG/150 ML] 750 mg Premix Bag 1 bag IV Q48H 07/30/20 05:11 CXR [Chest 1V Frontal] [CR] AM 07/31/20 05:11 CXR [Chest 1V Frontal] [CR] AM - Plan Plan:: ASSESSMENT AND PLAN BILATERAL PNEUMONIA WITH SEPSIS-she has remained afebrile over the last 24 hours, white blood cell count modestly improved from yesterday. Other than mild tachycardia has been hemodynamically stable. Blood cultures are showing no growth after 4 days, no organisms noted on sputum Gram stain or culture -Sputum culture pending -Continue IV vancomycin, Zosyn and levofloxacin -Saline lock IV -Blood cultures pending HYPOXIC AND HYPERCAPNIC RESPIRATORY FAILURE-secondary to bilateral pneumonia and probable component of ARDS. Continues to require ventilatory support, respiratory status has been stable over the last 24 hours with no evidence of further or progressive compromise. She is not yet ready to proceed with weaning or spontaneous breathing trial. -Continue mechanical ventilation with current settings -Nebulized albuterol as needed ACUTE KIDNEY INJURY-she did experience some borderline blood pressures and this may be the underlying cause, versus medication effect. Increase in creatinine has been modest since last night and urine output appears to be improving. -Maintain adequate blood pressures -Closely monitor renal function and urine output SCHIZOPHRENIA -NG tube -Resume oral medications via NG TYPE 2 DIABETES MELLITUS -Hold metformin -4 times daily glucometers -Low-dose sliding scale Humalog MAINTENANCE ISSUES -DVT prophylaxis; Lovenox 40 mg subcu daily -GI prophylaxis; Protonix 40 mg IV daily -Welch catheter; used to monitor urine output during intubation -Nutrition; n.p.o. -Nicotine dependence; not required CODE STATUS-FULL CODE ADMISSION STATUS-patient will be admitted to inpatient status, expect at least a 2 night hospital stay for evaluation and management of problems as outlined above. At the time of this admission I do not reasonably expected evaluation and management of this problem will require more than a 96 hour hospital stay. DISPOSITION-anticipate discharge to home after the hospital stay. PRIMARY CARE PROVIDER-Dr. Loza
[2020-07-28] MEDS ORDERED: LORazepam 1 MG Tab NGTUBE SCH (12:56)
[2020-07-28] MEDS ORDERED: OLANZapine 5 MG Tab NGTUBE PRN (12:56)
[2020-07-28] MEDS ORDERED: oxyCODONE 5 MG Tab NGTUBE PRN (12:57)
[2020-07-28] MEDS ORDERED: Acetaminophen Soln 650 MG/20.3 ML UD Cup NGTUBE PRN (13:00)
[2020-07-28] MEDS: Gabapentin 400 MG Cap NGTUBE SCH ×2 (14:54→21:13)
[2020-07-28] MEDS: Pantoprazole 40 MG Vial IVPUSH SCH (14:55)
[2020-07-28] MEDS: Enoxaparin 40 MG/0.4 ML Syringe SUBCUT SCH (17:06)
[2020-07-28] MEDS: Magnesium Oxide 400 MG Tab NGTUBE SCH (21:13)
[2020-07-28] MEDS: rOPINIRole 1 MG Tab NGTUBE SCH (21:13)
[2020-07-28] MEDS: CLOZAPINE 200 MG NGTUBE SCH (21:14)
[2020-07-29] MEDS: propofoL 100 ML IV SCH ×8 (01:40→23:30)
[2020-07-29] MEDS: Piperacillin/Tazobactam/Dext 3.375 GM in Premix Bag 1 BAG IV SCH (04:52)
[2020-07-29] MEDS: Insulin Lispro 100 Unit/ML 3 ML KwikPen SUBCUT SCH ×4 (08:11→20:13)
[2020-07-29] MEDS: SCOPOLAMINE PATCH CHECK TOP SCH (08:12)
[2020-07-29] MEDS: Gabapentin 400 MG Cap NGTUBE SCH ×3 (08:20→20:54)
[2020-07-29] MEDS: Magnesium Oxide 400 MG Tab NGTUBE SCH (08:20)
[2020-07-29] MEDS: Estradiol 0.5 MG Tab NGTUBE SCH (08:21)
[2020-07-29] MEDS: Citalopram 20 MG Tab NGTUBE SCH (08:21)
[2020-07-29] MEDS: OLANZapine 5 MG Tab NGTUBE SCH (08:21)
--- NOTE | 2020-07-29 09:29 | CR ---
CHEST: Portable 07/27/2020 at 1:42 AM CLINICAL HISTORY:Status post intubation COMPARISON:07/26/2020 FINDINGS: Patient has been intubated. The endotracheal tube tip is approximately 2 cm from the caio. Patient has increasing diffuse bilateral pulmonary infiltrates. Impression: Status post intubation Increasing bilateral pulmonary infiltrates CHEST: Portable 07/28/2020 at 2:29 AM CLINICAL HISTORY:Pneumonia, intubation COMPARISON:07/27/2020 FINDINGS: Diffuse bilateral pulmonary infiltrates are similar to prior study. Endotracheal tube tip is now 3 cm from the caio. There are no effusions. IMPRESSION: Endotracheal tube is 3 cm from the caio Persistent diffuse dense bilateral pulmonary infiltrates
--- NOTE | 2020-07-29 10:34 | PCM.PN ---
- General Info Date of Service: 07/29/20 Subjective Update: No acute events overnight. She remains intubated and sedated and is unable to provide any history. Oxygenation has been stable. She does continue to require 70% FiO2. Urine output has been good but her creatinine level has risen further since yesterday. She has not had any fevers. Chest x-ray appears more clear today. No significant secretions. Functional Status: Reports: Other (intubated and sedated) - Review of Systems General: Denies: Fever - Patient Data Vitals - Most Recent: Last Vital Signs Temp 37.4 C 07/29/20 07:00 Pulse 72 07/29/20 10:00 Resp 20 07/29/20 10:00 BP 124/74 07/29/20 10:00 Pulse Ox 95 07/29/20 10:00 Weight - Most Recent: 130.907 kg I&O - Last 24 Hours: Intake & Output 07/28/20 07/29/20 07/29/20 22:59 06:59 14:59 Intake Total 313 417 Output Total 265 375 135 Balance 48 42 -135 Lab Results Last 24 Hours: Laboratory Results - last 24 hr 07/28/20 07/28/20 07/28/20 Range/Units 11:45 17:00 17:00 WBC (4.5-11.0) K/uL RBC (3.30-5.50) M/uL Hgb (12.0-15.0) g/dL Hct (36.0-48.0) % MCV (80-98) fL MCH (27-31) pg MCHC (32-36) % Plt Count (150-400) K/uL Neut % (Auto) (36-66) % Lymph % (Auto) (24-44) % [place] % (Auto) (2-6) % Eos % (Auto) (2-4) % Baso % (Auto) (0-1) % Puncture Site A-line ABG pH 7.401 (7.350-7.450) ABG pCO2 42.2 H (35.0-42.0) mmHg ABG pO2 66.5 L (75.0-100.0) mmHg ABG HCO3 25.6 (22.0-26.0) mmol/L ABG Total CO2 22.9 (21.0-25.0) mmol/L ABG O2 Saturation 91.5 L (95.0-98.0) % ABG O2 Content 16.5 (15.0-23.0) %vol ABG Base Excess 1.2 mm/L ABG Hemoglobin 13.1 (12.0-16.0) g/dL ABG Oxyhemoglobin 89.4 % ABG Carboxyhemoglobin 1.1 (0.0-1.6) % ABG Methemoglobin 1.2 % Ramy Test Not performed O2 Delivery Device Ventilator Oxygen Flow Rate 60.0 L Sodium 146 (140-148) mmol/L Potassium 3.9 (3.6-5.2) mmol/L Chloride 108 (100-108) mmol/L Carbon Dioxide 26 (21-32) mmol/L Anion Gap 12.2 (5.0-14.0) mmol/L BUN 25 H (7-18) mg/dL Creatinine 2.8 H (0.6-1.0) mg/dL Est Cr Clr Drug Dosing 23.51 mL/min Estimated GFR (MDRD) 19 L (>60) Glucose 117 H (74-106) mg/dL Calcium 7.8 L (8.5-10.1) mg/dL Total Bilirubin (0.2-1.0) mg/dL AST (15-37) U/L ALT (12-78) U/L Alkaline Phosphatase (46-116) U/L Total Protein (6.4-8.2) g/dL Albumin (3.4-5.0) g/dL Globulin (2.3-3.5) g/dL Albumin/Globulin Ratio (1.2-2.2) Vancomycin Trough 58.1 H (10.0-20.0) ug/mL Random Vancomycin (0.0-50.0) ug/mL 07/29/20 07/29/20 07/29/20 Range/Units 05:30 05:30 05:30 WBC 16.6 H (4.5-11.0) K/uL RBC 3.08 L (3.30-5.50) M/uL Hgb 9.2 L (12.0-15.0) g/dL Hct 29.6 L (36.0-48.0) % MCV 96 (80-98) fL MCH 30 (27-31) pg MCHC 31 L (32-36) % Plt Count 340 (150-400) K/uL Neut % (Auto) 81 H (36-66) % Lymph % (Auto) 9 L (24-44) % [place] % (Auto) 9 H (2-6) % Eos % (Auto) 1 L (2-4) % Baso % (Auto) 0 (0-1) % Puncture Site Line ABG pH 7.392 (7.350-7.450) ABG pCO2 40.5 (35.0-42.0) mmHg ABG pO2 85.3 (75.0-100.0) mmHg ABG HCO3 24.1 (22.0-26.0) mmol/L ABG Total CO2 22.6 (21.0-25.0) mmol/L ABG O2 Saturation 95.6 (95.0-98.0) % ABG O2 Content 12.7 L (15.0-23.0) %vol ABG Base Excess -0.2 mm/L ABG Hemoglobin 9.6 L (12.0-16.0) g/dL ABG Oxyhemoglobin 92.7 % ABG Carboxyhemoglobin 1.6 (0.0-1.6) % ABG Methemoglobin 1.4 % Ramy Test O2 Delivery Device Ventilator Oxygen Flow Rate L Sodium 145 (140-148) mmol/L Potassium 3.8 (3.6-5.2) mmol/L Chloride 107 (100-108) mmol/L Carbon Dioxide 24 (21-32) mmol/L Anion Gap 14.3 H (5.0-14.0) mmol/L BUN 27 H (7-18) mg/dL Creatinine 3.1 H (0.6-1.0) mg/dL Est Cr Clr Drug Dosing 21.24 mL/min Estimated GFR (MDRD) 16 L (>60) Glucose 124 H (74-106) mg/dL Calcium 7.8 L (8.5-10.1) mg/dL Total Bilirubin 1.0 (0.2-1.0) mg/dL AST 31 (15-37) U/L ALT 34 (12-78) U/L Alkaline Phosphatase 100 (46-116) U/L Total Protein 6.1 L (6.4-8.2) g/dL Albumin 1.9 L (3.4-5.0) g/dL Globulin 4.2 H (2.3-3.5) g/dL Albumin/Globulin Ratio 0.5 L (1.2-2.2) Vancomycin Trough (10.0-20.0) ug/mL Random Vancomycin 37.5 (0.0-50.0) ug/mL [place] Results Last 24 Hours: Microbiology 07/27/20 01:45 Gram Stain - Final Sputum - Induced Respiratory Culture - Final ORAL CONTAMINATION 2 DAY 07/23/20 11:58 Aerobic Blood Culture - Final Blood - Venous NO GROWTH AFTER 5 DAYS Anaerobic Blood Culture - Final NO GROWTH AFTER 5 DAYS 07/23/20 11:20 Aerobic Blood Culture - Final Blood - Venous - Iv Start NO GROWTH AFTER 5 DAYS Anaerobic Blood Culture - Final NO GROWTH AFTER 5 DAYS Med Orders - Current: Current Medications Acetaminophen (Tylenol) 650 mg NGTUBE Q4H PRN PRN Reason: Pain (Mild 1-3)/fever Albuterol (Proventil Neb Soln) 2.5 mg NEB Q4H PRN PRN Reason: Shortness Of Breath/wheezing Last Admin: 07/26/20 21:49 Dose: 2.5 mg Documented by: Citalopram Hydrobromide (Celexa) 40 mg NGTUBE DAILY [facility] Last Admin: 07/29/20 08:21 Dose: 40 mg Documented by: Dextrose (Glutose 15) 15 gm PO ONETIME PRN PRN Reason: Hypoglycemia Dextrose/Water (Dextrose 50% In Water) 50 ml IV ONETIME PRN PRN Reason: Hypoglycemia Enoxaparin Sodium (Lovenox) 30 mg SUBCUT Q24H [facility] Estradiol (Estradiol) 0.5 mg NGTUBE DAILY [facility] Last Admin: 07/29/20 08:21 Dose: 0.5 mg Documented by: Furosemide (Lasix) 20 mg IVPUSH NOW ONE Stop: 07/29/20 10:46 Gabapentin (Neurontin) 400 mg NGTUBE TID [facility] Last Admin: 07/29/20 08:20 Dose: 400 mg Documented by: Heparin Sodium (Porcine) 5,000 (units/ Sodium Chloride) 501 mls @ 0 mls/hr IV ASDIRECTED [facility] Last Admin: 07/27/20 01:46 Dose: 1 mls/hr Documented by: Propofol (Diprivan 100 Ml) 100 mls @ 15.709 mls/hr IV TITRATE [facility]; Protocol Last Admin: 07/29/20 07:48 Dose: 40 mcg/kg/min, 31.418 mls/hr Documented by: Vancomycin HCl 1.5 gm/ Sodium (Chloride) 250 mls @ 166.667 mls/hr IV Q8H [facility] Last Admin: 07/28/20 03:12 Dose: 166.667 mls/hr Documented by: Levofloxacin/Dextrose 750 mg/ (Premix) 150 mls @ 100 mls/hr IV Q48H [facility] Ceftazidime 1 gm/ Sodium (Chloride) 50 mls @ 100 mls/hr IV Q24H [facility] Insulin Human Lispro (Humalog) 0 unit SUBCUT QIDACANDBED [facility]; Protocol Last Admin: 07/29/20 08:11 Dose: Not Given Documented by: Lorazepam (Ativan) 0.5 mg IVPUSH Q2H PRN PRN Reason: Anxiety Last Admin: 07/27/20 10:05 Dose: 0.5 mg Documented by: Lorazepam (Ativan) 1 mg NGTUBE TID [facility] Last Admin: 07/28/20 14:59 Dose: 1 mg Documented by: Magnesium Oxide (Magnesium Oxide) 400 mg NGTUBE BID [facility] Last Admin: 07/29/20 08:20 Dose: 400 mg Documented by: Olanzapine (Zyprexa) 15 mg NGTUBE DAILY@1500 PRN PRN Reason: * Olanzapine (Zyprexa) 15 mg NGTUBE DAILY [facility] Last Admin: 07/29/20 08:21 Dose: 15 mg Documented by: Ondansetron HCl (Zofran) 4 mg IV Q4H PRN PRN Reason: Nausea/Vomiting Last Admin: 07/26/20 22:52 Dose: 4 mg Documented by: Pantoprazole Sodium (Protonix Iv) 40 mg IVPUSH Q24H [facility] Last Admin: 07/28/20 14:55 Dose: 40 mg Documented by: Clozapine 200mg (Ptom) 0 each NGTUBE BEDTIME [facility] Last Admin: 07/28/20 21:14 Dose: 1 each Documented by: Ropinirole HCl (Requip) 1 mg NGTUBE BEDTIME [facility] Last Admin: 07/28/20 21:13 Dose: 1 mg Documented by: Scopolamine (Transderm-Scop) 1.5 mg TRDERM Q72H [facility] Last Admin: 07/27/20 15:26 Dose: 1.5 mg Documented by: Sodium Chloride (Saline Flush) 10 ml FLUSH ASDIRECTED PRN PRN Reason: Keep Vein Open Discontinued Medications Acetaminophen (Tylenol) 650 mg PO Q4H PRN PRN Reason: Pain (Mild 1-3)/fever Last Admin: 07/25/20 20:13 Dose: 650 mg Documented by: Citalopram Hydrobromide (Celexa) 40 mg PO DAILY [facility] Last Admin: 07/28/20 08:07 Dose: Not Given Documented by: Enoxaparin Sodium (Lovenox) 40 mg SUBCUT Q24H [facility] Last Admin: 07/28/20 17:06 Dose: 40 mg Documented by: Estradiol (Estradiol) 0.5 mg PO DAILY [facility] Last Admin: 07/28/20 08:07 Dose: Not Given Documented by: Gabapentin (Neurontin) 400 mg PO TID [facility] Last Admin: 07/28/20 08:08 Dose: Not Given Documented by: Heparin Sodium (Porcine) (Heparin Sodium) Confirm Administered Dose 5,000 units .ROUTE .STK-MED ONE Stop: 07/27/20 00:57 Last Admin: 07/27/20 01:55 Dose: Not Given Documented by: Lactated Ringer's (Ringers, Lactated) 1,000 mls @ 999 mls/hr IV ASDIRECTED [facility] Azithromycin 500 mg/ Sodium (Chloride) 250 mls @ 250 mls/hr IV Q24H [facility] Last Admin: 07/23/20 11:42 Dose: 250 mls/hr Documented by: Sodium Chloride (Normal Saline) 1,000 mls @ 999 mls/hr IV ASDIRECTED [facility] Last Admin: 07/23/20 11:41 Dose: 999 mls/hr Documented by: Ceftriaxone Sodium 1 gm/ (Sodium Chloride) 50 mls @ 100 mls/hr IV ONETIME ONE Stop: 07/23/20 11:04 Last Admin: 07/23/20 11:43 Dose: 100 mls/hr Documented by: Sodium Chloride (Normal Saline) 100 mls @ 3 mls/sec IV ONETIME ONE Stop: 07/23/20 12:21 Last Admin: 07/23/20 14:00 Dose: 3 mls/sec Documented by: Lactated Ringer's (Ringers, Lactated) 1,000 mls @ 125 mls/hr IV ASDIRECTED [facility] Last Admin: 07/24/20 07:17 Dose: 125 mls/hr Documented by: Piperacillin/Tazobactam/ (Dextrose 3.375 gm/ Premix) 50 mls @ 100 mls/hr IV Q6H [facility] Last Admin: 07/29/20 04:52 Dose: 100 mls/hr Documented by: Levofloxacin/Dextrose 750 mg/ (Premix) 150 mls @ 100 mls/hr IV Q24H [facility] Last Admin: 07/27/20 16:47 Dose: 100 mls/hr Documented by: Magnesium Sulfate 2 gm/ Premix 50 mls @ 25 mls/hr IV Q6H [facility] Stop: 07/24/20 16:59 Last Admin: 07/24/20 14:44 Dose: 25 mls/hr Documented by: Lactated Ringer's (Ringers, Lactated) 1,000 mls @ 75 mls/hr IV ASDIRECTED [facility] Last Admin: 07/24/20 20:59 Dose: 75 mls/hr Documented by: Lactated Ringer's (Ringers, Lactated) 1,000 mls @ 50 mls/hr IV ASDIRECTED [facility] Last Admin: 07/27/20 08:12 Dose: 50 mls/hr Documented by: Vancomycin HCl 1.75 gm/ Sodium (Chloride) 250 mls @ 166.667 mls/hr IV Q8H [facility] Last Admin: 07/27/20 11:15 Dose: 166.667 mls/hr Documented by: Propofol (Diprivan 100 Ml) Confirm Administered Dose 100 mls @ as directed .ROUTE .STK-MED ONE Stop: 07/27/20 01:18 Last Admin: 07/27/20 01:43 Dose: Not Given Documented by: Sodium Chloride (Normal Saline) 90 mls @ 3 mls/sec IV ASDIRECTED [facility] Stop: 07/27/20 14:30 Last Admin: 07/27/20 15:05 Dose: 3 mls/sec Documented by: Ibuprofen (Motrin) 800 mg PO BID [facility] Last Admin: 07/28/20 08:07 Dose: Not Given Documented by: Ibuprofen (Motrin) 400 mg PO Q8H PRN PRN Reason: Fever Last Admin: 07/26/20 14:54 Dose: 400 mg Documented by: Iopamidol (Isovue-370 (76%)) 100 ml IV . DIRECTED [facility] Last Admin: 07/23/20 14:00 Dose: 100 ml Documented by: Iopamidol (Isovue-370 (76%)) 100 ml IV . DIRECTED [facility] Stop: 07/27/20 14:30 Last Admin: 07/27/20 15:04 Dose: 100 ml Documented by: Lorazepam (Ativan) 1 mg PO TID [facility] Last Admin: 07/28/20 08:07 Dose: Not Given Documented by: Lorazepam (Ativan) Confirm Administered Dose 2 mg .ROUTE .STK-MED ONE Stop: 07/26/20 23:52 Last Admin: 07/26/20 23:55 Dose: Not Given Documented by: Magnesium Oxide (Magnesium Oxide) 400 mg PO BID [facility] Last Admin: 07/28/20 08:07 Dose: Not Given Documented by: Scopolamine Patch (Check) 1 each TOP DAILY [facility] Stop: 07/29/20 09:01 Last Admin: 07/29/20 08:12 Dose: Not Given Documented by: Olanzapine (Zyprexa) 15 mg PO DAILY [facility] Last Admin: 07/28/20 08:08 Dose: Not Given Documented by: Olanzapine (Zyprexa) 15 mg PO DAILY@1500 PRN PRN Reason: * Last Admin: 07/25/20 08:40 Dose: 15 mg Documented by: Oxycodone HCl (Oxycodone) 5 mg PO Q4H PRN PRN Reason: Pain (moderate 4-6) Last Admin: 07/26/20 20:30 Dose: 5 mg Documented by: Oxycodone HCl (Oxycodone) 5 mg NGTUBE Q4H PRN PRN Reason: Pain (moderate 4-6) Pantoprazole Sodium (Protonix) 40 mg PO ACBREAKFAST [facility] Last Admin: 07/27/20 08:50 Dose: Not Given Documented by: Clozapine 200mg (Ptom) 0 each PO BEDTIME [facility] Last Admin: 07/27/20 20:17 Dose: Not Given Documented by: Polyethylene Glycol (Miralax) 17 gm PO DAILY PRN PRN Reason: Constipation Propofol (Diprivan 20 Ml) Confirm Administered Dose 200 mg .ROUTE .STK-MED ONE Stop: 07/27/20 07:06 Ropinirole HCl (Requip) 1 mg PO BEDTIME [facility] Last Admin: 07/27/20 20:17 Dose: Not Given Documented by: Sodium Chloride (Saline Flush) 10 ml FLUSH ONETIME PRN PRN Reason: PER RADIOLOGY PROTOCOL Last Admin: 07/23/20 14:00 Dose: 10 ml Documented by: Sodium Chloride (Saline Flush) 10 ml FLUSH ONETIME ONE Stop: 07/27/20 13:46 Last Admin: 07/27/20 15:06 Dose: 10 ml Documented by: Succinylcholine Chloride (Quelicin) Confirm Administered Dose 200 mg .ROUTE .STK-MED ONE Stop: 07/27/20 07:06 Tizanidine HCl (Zanaflex) 2 mg PO TID [facility] Last Admin: 07/28/20 08:08 Dose: Not Given Documented by: - Exam Quality Assessment: Supplemental Oxygen General: No Acute Distress, Sedated. No: Alert Lungs: Normal Respiratory Effort, Crackles (mild both lower lungs L>R) Cardiovascular: Regular Rate, Regular Rhythm GI/Abdominal Exam: Normal Bowel Sounds, Soft, No Distention Extremities: Pedal Edema. No: Increased Warmth Skin: Warm, Dry Psy/Mental Status: No: Alert, Agitated Sepsis Event Note - Evaluation Sepsis Screening Result: No Definite Risk - Focused Exam Vital Signs: Vital Signs Temp Pulse Resp BP Pulse Ox 07/29/20 10:00 72 20 124/74 95 07/29/20 09:00 72 21 H 124/79 95 07/29/20 08:00 73 19 127/78 95 07/29/20 07:00 37.4 C 74 18 128/78 95 07/29/20 06:00 75 20 128/73 94 L 07/29/20 05:00 75 22 H 116/85 93 L 07/29/20 04:00 37.3 C 77 22 H 112/80 91 L 07/29/20 03:00 75 22 H 112/95 H 92 L 07/29/20 02:00 75 22 H 111/84 93 L 07/29/20 01:00 75 22 H 126/74 94 L 07/29/20 00:00 37.2 C 75 21 H 126/74 94 L 07/28/20 23:00 73 22 H 122/70 94 L - Problem List Review Problem List Initiated/Reviewed/Updated: Yes - My Orders Last 24 Hours: My Active Orders 07/29/20 10:30 Furosemide [Lasix] 20 mg IVPUSH NOW ONE cefTAZidime Pentahydrate [Fortaz] 1 gm Sodium Chloride 0.9% [Normal Saline] 50 ml IV Q24H 07/29/20 10:32 Initiate/Renew Non-Violent Restraints (All Ages) Q24H 07/30/20 02:15 Welch Catheter Insertion [Insert Urinary Catheter] [OM.PC] Q24H 07/30/20 05:00 BASIC METABOLIC PANEL,BMP [CHEM] Timed BLOOD GAS ARTERIAL [BG] Timed CBC W/O DIFF,HEMOGRAM [HEME] Timed (1) - Plan Plan:: ASSESSMENT AND PLAN BILATERAL PNEUMONIA WITH SEPSIS-cultures have been negative. Chest x-ray appears to be clearing. Overall she has been stable but has not made dramatic improvements. -Continue vancomycin and levofloxacin, plan to discontinue vancomycin tomorrow if No resistant bacteria in culture -Start ceftazidime in place of Pip/Tazo -Saline lock IV -Follow-up cultures HYPOXIC AND HYPERCAPNIC RESPIRATORY FAILURE-secondary to bilateral pneumonia and probable component of ARDS. Continues to require ventilatory support, seems to be slowly improving but still has significant respiratory compromise. There is some evidence for volume overload today. -Trial of gentle diuresis -Continue mechanical ventilation with current settings -Nebulized albuterol as needed ACUTE KIDNEY INJURY-urine output has been good but creatinine level has risen further. I am concerned this may be related to antibiotics and they have been adjusted as discussed above. 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 -NG tube -Resume oral medications via NG TYPE 2 DIABETES MELLITUS-sugars acceptable. -Hold metformin -4 times daily glucometers -Low-dose sliding scale Humalog MAINTENANCE ISSUES -DVT prophylaxis; Lovenox 40 mg subcu daily -GI prophylaxis; PPI -Welch catheter; still necessary for a strict intake and output with a critical patient -Nutrition; n.p.o. DISPOSITION-anticipate discharge to home after the hospital stay. Helio Lima MD
--- NOTE | 2020-07-29 10:39 | CR ---
CHEST: Portable 07/29/2020 at 2:29 AM CLINICAL HISTORY:Pneumonia, intubation COMPARISON:07/28/2020 FINDINGS: Endotracheal tube remains in place. Diffuse bilateral pulmonary infiltrates are similar to prior study. NG tube is been placed in the stomach. Impression: Endotracheal tube and NG tube appear in good position Persistent moderate bilateral pulmonary infiltrates similar to prior study.
[2020-07-29] MEDS ORDERED: Furosemide 20 MG/2 ML VIAL IVPUSH ONE (10:45)
[2020-07-29] MEDS: Pantoprazole 40 MG Vial IVPUSH SCH (14:10)
[2020-07-29] MEDS: Heparin Sodium 5,000 UNITS in Sodium Chloride 0.9% 500 ML IV SCH (15:26)
[2020-07-29] MEDS: Levofloxacin/Dextrose 5%-Water 750 MG in Premix Bag 1 BAG IV SCH (15:57)
[2020-07-29] MEDS: Enoxaparin 30 MG/0.3 ML Syringe SUBCUT SCH (16:59)
[2020-07-29] MEDS: rOPINIRole 1 MG Tab NGTUBE SCH (20:54)
[2020-07-29] MEDS: CLOZAPINE 200 MG NGTUBE SCH (20:54)
[2020-07-30] MEDS: propofoL 100 ML IV SCH ×5 (03:16→21:34)
[2020-07-30] MEDS: Insulin Lispro 100 Unit/ML 3 ML KwikPen SUBCUT SCH ×4 (07:13→20:42)
[2020-07-30] MEDS: Citalopram 20 MG Tab NGTUBE SCH (08:07)
[2020-07-30] MEDS: Gabapentin 400 MG Cap NGTUBE SCH ×3 (08:07→20:38)
[2020-07-30] MEDS: OLANZapine 5 MG Tab NGTUBE SCH (08:08)
--- NOTE | 2020-07-30 09:15 | PCM.PN ---
- General Info Date of Service: 07/30/20 Subjective Update: There were no acute events overnight. She continues to be intubated and mechanically ventilated. She is sedated this morning. Vital signs have all been stable. Oxygenation has been stable and she remains on 70% FiO2. Blood gases are essentially normal with a normal pH and normal PCO2. Urine output has been good. Kidney function based on laboratory studies is stable. Electrolytes are acceptable. She has not been having any fevers. Cultures remain negative. Functional Status: Reports: Other (intubated and sedated) - Review of Systems General: Denies: Fever - Patient Data Vitals - Most Recent: Last Vital Signs Temp 36.9 C 07/30/20 08:00 Pulse 71 07/30/20 08:00 Resp 17 07/30/20 08:00 BP 128/70 07/30/20 08:00 Pulse Ox 96 07/30/20 08:00 Weight - Most Recent: 130.907 kg I&O - Last 24 Hours: Intake & Output 07/29/20 07/30/20 07/30/20 22:59 06:59 14:59 Intake Total 508 705 Output Total 540 710 100 Balance -32 -5 -100 Lab Results Last 24 Hours: Laboratory Results - last 24 hr 07/30/20 07/30/20 07/30/20 Range/Units 04:50 04:50 04:55 WBC 13.2 H (4.5-11.0) K/uL RBC 3.00 L (3.30-5.50) M/uL Hgb 9.2 L (12.0-15.0) g/dL Hct 29.1 L (36.0-48.0) % MCV 97 (80-98) fL MCH 31 (27-31) pg MCHC 32 (32-36) % Plt Count 345 (150-400) K/uL Puncture Site Line ABG pH 7.384 (7.350-7.450) ABG pCO2 41.5 (35.0-42.0) mmHg ABG pO2 81.9 (75.0-100.0) mmHg ABG HCO3 24.2 (22.0-26.0) mmol/L ABG Total CO2 22.7 (21.0-25.0) mmol/L ABG O2 Saturation 95.3 (95.0-98.0) % ABG O2 Content 12.3 L (15.0-23.0) %vol ABG Base Excess -0.3 mm/L ABG Hemoglobin 9.4 L (12.0-16.0) g/dL ABG Oxyhemoglobin 92.3 % ABG Carboxyhemoglobin 1.7 H (0.0-1.6) % ABG Methemoglobin 1.5 % O2 Delivery Device Ventilator Oxygen Flow Rate L Sodium 146 (140-148) mmol/L Potassium 3.7 (3.6-5.2) mmol/L Chloride 109 H (100-108) mmol/L Carbon Dioxide 23 (21-32) mmol/L Anion Gap 17.7 H (5.0-14.0) mmol/L BUN 32 H (7-18) mg/dL Creatinine 3.1 H (0.6-1.0) mg/dL Est Cr Clr Drug Dosing 21.24 mL/min Estimated GFR (MDRD) 16 L (>60) Glucose 97 (74-106) mg/dL Calcium 8.0 L (8.5-10.1) mg/dL Magnesium 2.5 H D (1.8-2.4) mg/dL Vancomycin Trough 22.1 H (10.0-20.0) ug/mL [place] Results Last 24 Hours: Microbiology 07/27/20 01:45 Gram Stain - Final Sputum - Induced Respiratory Culture - Final ORAL CONTAMINATION 2 DAY 07/23/20 11:58 Aerobic Blood Culture - Final Blood - Venous NO GROWTH AFTER 5 DAYS Anaerobic Blood Culture - Final NO GROWTH AFTER 5 DAYS Med Orders - Current: Current Medications Acetaminophen (Tylenol) 650 mg NGTUBE Q4H PRN PRN Reason: Pain (Mild 1-3)/fever Albuterol (Proventil Neb Soln) 2.5 mg NEB Q4H PRN PRN Reason: Shortness Of Breath/wheezing Last Admin: 07/26/20 21:49 Dose: 2.5 mg Documented by: Citalopram Hydrobromide (Celexa) 40 mg NGTUBE DAILY [facility] Last Admin: 07/30/20 08:07 Dose: 40 mg Documented by: Dextrose (Glutose 15) 15 gm PO ONETIME PRN PRN Reason: Hypoglycemia Dextrose/Water (Dextrose 50% In Water) 50 ml IV ONETIME PRN PRN Reason: Hypoglycemia Enoxaparin Sodium (Lovenox) 30 mg SUBCUT Q24H [facility] Last Admin: 07/29/20 16:59 Dose: 30 mg Documented by: Estradiol (Estradiol) 0.5 mg NGTUBE DAILY [facility] Last Admin: 07/29/20 08:21 Dose: 0.5 mg Documented by: Gabapentin (Neurontin) 400 mg NGTUBE TID [facility] Last Admin: 07/30/20 08:07 Dose: 400 mg Documented by: Heparin Sodium (Porcine) 5,000 (units/ Sodium Chloride) 501 mls @ 0 mls/hr IV ASDIRECTED [facility] Last Admin: 07/29/20 15:26 Dose: 1 mls/hr Documented by: Propofol (Diprivan 100 Ml) 100 mls @ 15.709 mls/hr IV TITRATE [facility]; Protocol Last Admin: 07/30/20 06:16 Dose: 35 mcg/kg/min, 27.49 mls/hr Documented by: Vancomycin HCl 1.5 gm/ Sodium (Chloride) 250 mls @ 166.667 mls/hr IV Q8H [facility] Last Admin: 07/28/20 03:12 Dose: 166.667 mls/hr Documented by: Levofloxacin/Dextrose 750 mg/ (Premix) 150 mls @ 100 mls/hr IV Q48H [facility] Last Admin: 07/29/20 15:57 Dose: 100 mls/hr Documented by: Ceftazidime 1 gm/ Sodium (Chloride) 50 mls @ 100 mls/hr IV Q24H [facility] Last Admin: 07/29/20 10:49 Dose: 100 mls/hr Documented by: Insulin Human Lispro (Humalog) 0 unit SUBCUT QIDACANDBED [facility]; Protocol Last Admin: 07/30/20 07:13 Dose: Not Given Documented by: Lorazepam (Ativan) 0.5 mg IVPUSH Q2H PRN PRN Reason: Anxiety Last Admin: 07/27/20 10:05 Dose: 0.5 mg Documented by: Lorazepam (Ativan) 1 mg NGTUBE TID [facility] Last Admin: 07/28/20 14:59 Dose: 1 mg Documented by: Magnesium Oxide (Magnesium Oxide) 400 mg NGTUBE BID [facility] Last Admin: 07/29/20 08:20 Dose: 400 mg Documented by: Olanzapine (Zyprexa) 15 mg NGTUBE DAILY@1500 PRN PRN Reason: * Olanzapine (Zyprexa) 15 mg NGTUBE DAILY [facility] Last Admin: 07/30/20 08:08 Dose: 15 mg Documented by: Ondansetron HCl (Zofran) 4 mg IV Q4H PRN PRN Reason: Nausea/Vomiting Last Admin: 07/26/20 22:52 Dose: 4 mg Documented by: Pantoprazole Sodium (Protonix Iv) 40 mg IVPUSH Q24H [facility] Last Admin: 07/29/20 14:10 Dose: 40 mg Documented by: Clozapine 200mg (Ptom) 0 each NGTUBE BEDTIME [facility] Last Admin: 07/29/20 20:54 Dose: 1 each Documented by: Ropinirole HCl (Requip) 1 mg NGTUBE BEDTIME [facility] Last Admin: 07/29/20 20:54 Dose: 1 mg Documented by: Scopolamine (Transderm-Scop) 1.5 mg TRDERM Q72H [facility] Last Admin: 07/27/20 15:26 Dose: 1.5 mg Documented by: Sodium Chloride (Saline Flush) 10 ml FLUSH ASDIRECTED PRN PRN Reason: Keep Vein Open Discontinued Medications Acetaminophen (Tylenol) 650 mg PO Q4H PRN PRN Reason: Pain (Mild 1-3)/fever Last Admin: 07/25/20 20:13 Dose: 650 mg Documented by: Citalopram Hydrobromide (Celexa) 40 mg PO DAILY [facility] Last Admin: 07/28/20 08:07 Dose: Not Given Documented by: Enoxaparin Sodium (Lovenox) 40 mg SUBCUT Q24H [facility] Last Admin: 07/28/20 17:06 Dose: 40 mg Documented by: Estradiol (Estradiol) 0.5 mg PO DAILY [facility] Last Admin: 07/28/20 08:07 Dose: Not Given Documented by: Furosemide (Lasix) 20 mg IVPUSH NOW ONE Stop: 07/29/20 10:46 Last Admin: 07/29/20 10:49 Dose: 20 mg Documented by: Gabapentin (Neurontin) 400 mg PO TID [facility] Last Admin: 07/28/20 08:08 Dose: Not Given Documented by: Heparin Sodium (Porcine) (Heparin Sodium) Confirm Administered Dose 5,000 units .ROUTE .STK-MED ONE Stop: 07/27/20 00:57 Last Admin: 07/27/20 01:55 Dose: Not Given Documented by: Lactated Ringer's (Ringers, Lactated) 1,000 mls @ 999 mls/hr IV ASDIRECTED [facility] Azithromycin 500 mg/ Sodium (Chloride) 250 mls @ 250 mls/hr IV Q24H [facility] Last Admin: 07/23/20 11:42 Dose: 250 mls/hr Documented by: Sodium Chloride (Normal Saline) 1,000 mls @ 999 mls/hr IV ASDIRECTED [facility] Last Admin: 07/23/20 11:41 Dose: 999 mls/hr Documented by: Ceftriaxone Sodium 1 gm/ (Sodium Chloride) 50 mls @ 100 mls/hr IV ONETIME ONE Stop: 07/23/20 11:04 Last Admin: 07/23/20 11:43 Dose: 100 mls/hr Documented by: Sodium Chloride (Normal Saline) 100 mls @ 3 mls/sec IV ONETIME ONE Stop: 07/23/20 12:21 Last Admin: 07/23/20 14:00 Dose: 3 mls/sec Documented by: Lactated Ringer's (Ringers, Lactated) 1,000 mls @ 125 mls/hr IV ASDIRECTED [facility] Last Admin: 07/24/20 07:17 Dose: 125 mls/hr Documented by: Piperacillin/Tazobactam/ (Dextrose 3.375 gm/ Premix) 50 mls @ 100 mls/hr IV Q6H [facility] Last Admin: 07/29/20 04:52 Dose: 100 mls/hr Documented by: Levofloxacin/Dextrose 750 mg/ (Premix) 150 mls @ 100 mls/hr IV Q24H [facility] Last Admin: 07/27/20 16:47 Dose: 100 mls/hr Documented by: Magnesium Sulfate 2 gm/ Premix 50 mls @ 25 mls/hr IV Q6H [facility] Stop: 07/24/20 16:59 Last Admin: 07/24/20 14:44 Dose: 25 mls/hr Documented by: Lactated Ringer's (Ringers, Lactated) 1,000 mls @ 75 mls/hr IV ASDIRECTED [facility] Last Admin: 07/24/20 20:59 Dose: 75 mls/hr Documented by: Lactated Ringer's (Ringers, Lactated) 1,000 mls @ 50 mls/hr IV ASDIRECTED [facility] Last Admin: 07/27/20 08:12 Dose: 50 mls/hr Documented by: Vancomycin HCl 1.75 gm/ Sodium (Chloride) 250 mls @ 166.667 mls/hr IV Q8H [facility] Last Admin: 07/27/20 11:15 Dose: 166.667 mls/hr Documented by: Propofol (Diprivan 100 Ml) Confirm Administered Dose 100 mls @ as directed .ROUTE .STK-MED ONE Stop: 07/27/20 01:18 Last Admin: 07/27/20 01:43 Dose: Not Given Documented by: Sodium Chloride (Normal Saline) 90 mls @ 3 mls/sec IV ASDIRECTED [facility] Stop: 07/27/20 14:30 Last Admin: 07/27/20 15:05 Dose: 3 mls/sec Documented by: Ibuprofen (Motrin) 800 mg PO BID [facility] Last Admin: 07/28/20 08:07 Dose: Not Given Documented by: Ibuprofen (Motrin) 400 mg PO Q8H PRN PRN Reason: Fever Last Admin: 07/26/20 14:54 Dose: 400 mg Documented by: Iopamidol (Isovue-370 (76%)) 100 ml IV . DIRECTED [facility] Last Admin: 07/23/20 14:00 Dose: 100 ml Documented by: Iopamidol (Isovue-370 (76%)) 100 ml IV . DIRECTED [facility] Stop: 07/27/20 14:30 Last Admin: 07/27/20 15:04 Dose: 100 ml Documented by: Lorazepam (Ativan) 1 mg PO TID [facility] Last Admin: 07/28/20 08:07 Dose: Not Given Documented by: Lorazepam (Ativan) Confirm Administered Dose 2 mg .ROUTE .STK-MED ONE Stop: 07/26/20 23:52 Last Admin: 07/26/20 23:55 Dose: Not Given Documented by: Magnesium Oxide (Magnesium Oxide) 400 mg PO BID [facility] Last Admin: 07/28/20 08:07 Dose: Not Given Documented by: Scopolamine Patch (Check) 1 each TOP DAILY [facility] Stop: 07/29/20 09:01 Last Admin: 07/29/20 08:12 Dose: Not Given Documented by: Olanzapine (Zyprexa) 15 mg PO DAILY [facility] Last Admin: 07/28/20 08:08 Dose: Not Given Documented by: Olanzapine (Zyprexa) 15 mg PO DAILY@1500 PRN PRN Reason: * Last Admin: 07/25/20 08:40 Dose: 15 mg Documented by: Oxycodone HCl (Oxycodone) 5 mg PO Q4H PRN PRN Reason: Pain (moderate 4-6) Last Admin: 07/26/20 20:30 Dose: 5 mg Documented by: Oxycodone HCl (Oxycodone) 5 mg NGTUBE Q4H PRN PRN Reason: Pain (moderate 4-6) Pantoprazole Sodium (Protonix) 40 mg PO ACBREAKFAST [facility] Last Admin: 07/27/20 08:50 Dose: Not Given Documented by: Clozapine 200mg (Ptom) 0 each PO BEDTIME [facility] Last Admin: 07/27/20 20:17 Dose: Not Given Documented by: Polyethylene Glycol (Miralax) 17 gm PO DAILY PRN PRN Reason: Constipation Propofol (Diprivan 20 Ml) Confirm Administered Dose 200 mg .ROUTE .STK-MED ONE Stop: 07/27/20 07:06 Ropinirole HCl (Requip) 1 mg PO BEDTIME [facility] Last Admin: 07/27/20 20:17 Dose: Not Given Documented by: Sodium Chloride (Saline Flush) 10 ml FLUSH ONETIME PRN PRN Reason: PER RADIOLOGY PROTOCOL Last Admin: 07/23/20 14:00 Dose: 10 ml Documented by: Sodium Chloride (Saline Flush) 10 ml FLUSH ONETIME ONE Stop: 07/27/20 13:46 Last Admin: 07/27/20 15:06 Dose: 10 ml Documented by: Succinylcholine Chloride (Quelicin) Confirm Administered Dose 200 mg .ROUTE .STK-MED ONE Stop: 07/27/20 07:06 Tizanidine HCl (Zanaflex) 2 mg PO TID [facility] Last Admin: 07/28/20 08:08 Dose: Not Given Documented by: - Exam Quality Assessment: Supplemental Oxygen General: No Acute Distress, Sedated. No: Alert Lungs: Normal Respiratory Effort, Crackles (few at bases). No: Wheezing Cardiovascular: Regular Rate, Regular Rhythm GI/Abdominal Exam: Soft, Non-Tender, No Distention, Abnormal Bowel Sounds (hypoactive ) Extremities: Pedal Edema (mild bilateral ). No: Increased Warmth Skin: Warm, Dry Psy/Mental Status: No: Alert, Agitated Sepsis Event Note - Evaluation Sepsis Screening Result: No Definite Risk - Focused Exam Vital Signs: Vital Signs Temp Pulse Resp BP Pulse Ox 07/30/20 08:00 36.9 C 71 17 128/70 96 07/30/20 07:00 37.6 C 71 17 128/73 97 07/30/20 06:00 72 19 130/83 93 L 07/30/20 05:00 74 17 131/82 93 L 07/30/20 04:00 37.2 C 73 17 112/66 96 07/30/20 03:00 73 20 123/67 95 07/30/20 02:00 74 19 109/61 94 L 07/30/20 01:00 72 20 114/69 95 07/30/20 00:00 37.2 C 73 20 124/72 94 L 07/29/20 23:00 73 18 119/70 93 L 07/29/20 22:00 72 21 H 113/69 94 L - Problem List Review Problem List Initiated/Reviewed/Updated: Yes - My Orders Last 24 Hours: My Active Orders 07/29/20 10:32 Initiate/Renew Non-Violent Restraints (All Ages) Q24H 07/29/20 11:00 cefTAZidime Pentahydrate [Fortaz] 1 gm Sodium Chloride 0.9% [Normal Saline] 50 ml IV Q24H 07/30/20 02:15 Welch Catheter Insertion [Insert Urinary Catheter] [OM.PC] Q24H 07/30/20 09:13 RT Aerosol Therapy [RC] ASDIRECTED Furosemide [Lasix] 20 mg IVPUSH ONETIME ONE 07/30/20 11:00 Albuterol [Proventil Neb Soln] 2.5 mg NEB QIDRT 07/31/20 05:00 BASIC METABOLIC PANEL,BMP [CHEM] Timed BLOOD GAS ARTERIAL [BG] Timed CBC W/O DIFF,HEMOGRAM [HEME] Timed (1) - Plan Plan:: ASSESSMENT AND PLAN BILATERAL PNEUMONIA WITH SEPSIS-cultures have been negative. Chest x-ray looks better again today. Things are stable but not dramatically improved. -Continue levofloxacin and ceftazidime -Discontinue vancomycin -Saline lock IV -Follow-up cultures HYPOXIC AND HYPERCAPNIC RESPIRATORY FAILURE-secondary to bilateral pneumonia and probable component of ARDS. Slowly improving. Chest x-ray slowly clearing. Volume status better but not optimized. 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 Hopefully things will start to improve from here on out. 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 -NG tube -Continue oral medications via NG TYPE 2 DIABETES MELLITUS-sugars in the normal range but slowly declining. -Gentle fluids with 5% dextrose -Hold metformin -4 times daily glucometers -Low-dose sliding scale Humalog MAINTENANCE ISSUES -DVT prophylaxis; Lovenox 40 mg subcu daily -GI prophylaxis; PPI -Welch catheter; still necessary for a strict intake and output with a critical patient -Nutrition; n.p.o. DISPOSITION-anticipate discharge to subacute rehab after the hospital stay. Helio Lima MD
[2020-07-30] MEDS ORDERED: Furosemide 20 MG/2 ML VIAL IVPUSH ONE (09:20)
--- NOTE | 2020-07-30 09:38 | CR ---
CHEST: Portable 07/30/2020 at 4:35 AM CLINICAL HISTORY:Intubation, pneumonia COMPARISON:07/29/2020 FINDINGS: Endotracheal tube is in the lower third of the trachea. There is an NG tube in the stomach Diffuse bilateral pulmonary infiltrates persist with minimal change. There are dense cyst in the right lung base. There may be a small right effusion. Impression: Endotracheal tube and nasogastric tubes remain in place Diffuse persistent pulmonary infiltrates with possible small right effusion
[2020-07-30] MEDS: Albuterol 0.083% 2.5 MG/3 ML Neb Soln NEB SCH ×3 (10:46→20:38)
[2020-07-30] MEDS: Dextrose 5%-0.9% NaCl 1,000 ML IV SCH (11:52)
[2020-07-30] MEDS: Pantoprazole 40 MG Vial IVPUSH SCH (13:32)
[2020-07-30] MEDS: Scopolamine 1.5 MG Transdermal Patch TRDERM SCH (14:35)
[2020-07-30] MEDS: Enoxaparin 30 MG/0.3 ML Syringe SUBCUT SCH (16:37)
[2020-07-30] MEDS: rOPINIRole 1 MG Tab NGTUBE SCH (20:38)
[2020-07-30] MEDS: CLOZAPINE 200 MG NGTUBE SCH (20:38)
[2020-07-31] MEDS: propofoL 100 ML IV SCH (06:00)
[2020-07-31] MEDS: Insulin Lispro 100 Unit/ML 3 ML KwikPen SUBCUT SCH ×4 (07:05→21:27)
[2020-07-31] MEDS: Dextrose 5%-0.9% NaCl 1,000 ML IV SCH (07:33)
[2020-07-31] MEDS: Albuterol 0.083% 2.5 MG/3 ML Neb Soln NEB SCH ×4 (07:52→20:13)
[2020-07-31] MEDS: Gabapentin 400 MG Cap NGTUBE SCH ×3 (08:31→21:26)
[2020-07-31] MEDS: OLANZapine 5 MG Tab NGTUBE SCH (08:31)
[2020-07-31] MEDS: Citalopram 20 MG Tab NGTUBE SCH (08:31)
--- NOTE | 2020-07-31 09:13 | CR ---
CHEST: Portable 07/31/2020 at 2:26 AM CLINICAL HISTORY:Pneumonia, intubation COMPARISON:07/30/2020 FINDINGS: Endotracheal tube remains in the mid trachea. There is an NG tube in the stomach. Patient has diffuse bilateral pulmonary infiltrates similar to prior study. Impression: Persistent moderate diffuse pulmonary infiltrates similar to prior study NG tube and endotracheal tube remain in place
--- NOTE | 2020-07-31 10:09 | PCM.PN ---
- General Info Date of Service: 07/31/20 Subjective Update: No acute events overnight. FiO2 has been weaned down to 35%. Vital signs have been stable. Her sedation is turned off and she does remain lethargic but is able to nod and shake her head. She is able to give a thumbs up as well. She has not had any fevers. Chest x-ray appears to be clearing each day. Urine output has been good. Creatinine slightly better. Functional Status: Reports: Other (intubated and sedated ) - Review of Systems General: Denies: Fever - Patient Data Vitals - Most Recent: Last Vital Signs Temp 36.9 C 07/31/20 09:00 Pulse 72 07/31/20 09:00 Resp 16 07/31/20 09:00 BP 141/80 H 07/31/20 09:00 Pulse Ox 94 L 07/31/20 09:00 Weight - Most Recent: 130.907 kg I&O - Last 24 Hours: Intake & Output 07/30/20 07/31/20 07/31/20 22:59 06:59 14:59 Intake Total 307 735 110 Output Total 625 800 125 Balance -318 -65 -15 Lab Results Last 24 Hours: Laboratory Results - last 24 hr 07/31/20 07/31/20 07/31/20 Range/Units 05:00 05:00 05:00 WBC 10.4 (4.5-11.0) K/uL RBC 3.00 L (3.30-5.50) M/uL Hgb 8.9 L (12.0-15.0) g/dL Hct 29.1 L (36.0-48.0) % MCV 97 (80-98) fL MCH 30 (27-31) pg MCHC 31 L (32-36) % Plt Count 348 (150-400) K/uL Puncture Site Line ABG pH 7.376 (7.350-7.450) ABG pCO2 43.7 H (35.0-42.0) mmHg ABG pO2 85.7 (75.0-100.0) mmHg ABG HCO3 25.0 (22.0-26.0) mmol/L ABG Total CO2 23.5 (21.0-25.0) mmol/L ABG O2 Saturation 95.7 (95.0-98.0) % ABG O2 Content 12.4 L (15.0-23.0) %vol ABG Base Excess 0.3 mm/L ABG Hemoglobin 9.4 L (12.0-16.0) g/dL ABG Oxyhemoglobin 92.8 % ABG Carboxyhemoglobin 1.8 H (0.0-1.6) % ABG Methemoglobin 1.2 % O2 Delivery Device Ventilator Oxygen Flow Rate L Sodium 149 H (140-148) mmol/L Potassium 3.8 (3.6-5.2) mmol/L Chloride 112 H (100-108) mmol/L Carbon Dioxide 25 (21-32) mmol/L Anion Gap 15.8 H (5.0-14.0) mmol/L BUN 35 H (7-18) mg/dL Creatinine 2.8 H (0.6-1.0) mg/dL Est Cr Clr Drug Dosing 23.51 mL/min Estimated GFR (MDRD) 19 L (>60) Glucose 123 H (74-106) mg/dL Calcium 8.2 L (8.5-10.1) mg/dL Med Orders - Current: Current Medications Acetaminophen (Tylenol) 650 mg NGTUBE Q4H PRN PRN Reason: Pain (Mild 1-3)/fever Albuterol (Proventil Neb Soln) 2.5 mg NEB Q4H PRN PRN Reason: Shortness Of Breath/wheezing Last Admin: 07/26/20 21:49 Dose: 2.5 mg Documented by: Albuterol (Proventil Neb Soln) 2.5 mg NEB QIDRT [facility] Last Admin: 07/31/20 07:52 Dose: 2.5 mg Documented by: Citalopram Hydrobromide (Celexa) 40 mg NGTUBE DAILY [facility] [place] Last Admin: 07/31/20 08:31 Dose: 40 mg Documented by: Dextrose (Glutose 15) 15 gm PO ONETIME PRN PRN Reason: Hypoglycemia Dextrose/Water (Dextrose 50% In Water) 50 ml IV ONETIME PRN PRN Reason: Hypoglycemia Enoxaparin Sodium (Lovenox) 30 mg SUBCUT Q24H [facility] [place] Last Admin: 07/30/20 16:37 Dose: 30 mg Documented by: Estradiol (Estradiol) 0.5 mg NGTUBE DAILY [facility] [place] Last Admin: 07/29/20 08:21 Dose: 0.5 mg Documented by: Gabapentin (Neurontin) 400 mg NGTUBE TID [facility] [place] Last Admin: 07/31/20 08:31 Dose: 400 mg Documented by: Heparin Sodium (Porcine) 5,000 (units/ Sodium Chloride) 501 mls @ 0 mls/hr IV ASDIRECTED [facility] [place] Last Admin: 07/29/20 15:26 Dose: 1 mls/hr Documented by: Propofol (Diprivan 100 Ml) 100 mls @ 15.709 mls/hr IV TITRATE [facility]; Protocol Last Titration: 07/31/20 09:16 Dose: 0 mcg/kg/min, 0 mls/hr Documented by: Levofloxacin/Dextrose 750 mg/ (Premix) 150 mls @ 100 mls/hr IV Q48H [facility] [place] Last Admin: 07/29/20 15:57 Dose: 100 mls/hr Documented by: Ceftazidime 1 gm/ Sodium (Chloride) 50 mls @ 100 mls/hr IV Q24H [facility] [place] Last Admin: 07/30/20 10:39 Dose: 100 mls/hr Documented by: Potassium Chloride/Dextrose/Sod Cl (D5 1/4 Ns With 20 Meq Kcl) 1,000 mls @ 50 mls/hr IV ASDIRECTED [facility] [place] Insulin Human Lispro (Humalog) 0 unit SUBCUT QIDACANDBED [facility]; Protocol Last Admin: 07/31/20 07:05 Dose: Not Given Documented by: Lorazepam (Ativan) 0.5 mg IVPUSH Q2H PRN PRN Reason: Anxiety Last Admin: 07/27/20 10:05 Dose: 0.5 mg Documented by: Lorazepam (Ativan) 1 mg NGTUBE TID [facility] [place] Last Admin: 07/28/20 14:59 Dose: 1 mg Documented by: Magnesium Oxide (Magnesium Oxide) 400 mg NGTUBE BID [facility] [place] Last Admin: 07/29/20 08:20 Dose: 400 mg Documented by: Olanzapine (Zyprexa) 15 mg NGTUBE DAILY@1500 PRN PRN Reason: * Olanzapine (Zyprexa) 15 mg NGTUBE DAILY [facility] [place] Last Admin: 07/31/20 08:31 Dose: 15 mg Documented by: Ondansetron HCl (Zofran) 4 mg IV Q4H PRN PRN Reason: Nausea/Vomiting Last Admin: 07/26/20 22:52 Dose: 4 mg Documented by: Pantoprazole Sodium (Protonix Iv) 40 mg IVPUSH Q24H [facility] [place] Last Admin: 07/30/20 13:32 Dose: 40 mg Documented by: Clozapine 200mg (Ptom) 0 each NGTUBE BEDTIME [facility] [place] Last Admin: 07/30/20 20:38 Dose: 1 each Documented by: Ropinirole HCl (Requip) 1 mg NGTUBE BEDTIME [facility] [place] Last Admin: 07/30/20 20:38 Dose: 1 mg Documented by: Scopolamine (Transderm-Scop) 1.5 mg TRDERM Q72H [facility] [place] Last Admin: 07/30/20 14:35 Dose: 1.5 mg Documented by: Sodium Chloride (Saline Flush) 10 ml FLUSH ASDIRECTED PRN PRN Reason: Keep Vein Open Discontinued Medications Acetaminophen (Tylenol) 650 mg PO Q4H PRN PRN Reason: Pain (Mild 1-3)/fever Last Admin: 07/25/20 20:13 Dose: 650 mg Documented by: Citalopram Hydrobromide (Celexa) 40 mg PO DAILY [facility] [place] Last Admin: 07/28/20 08:07 Dose: Not Given Documented by: Enoxaparin Sodium (Lovenox) 40 mg SUBCUT Q24H [facility] [place] Last Admin: 07/28/20 17:06 Dose: 40 mg Documented by: Estradiol (Estradiol) 0.5 mg PO DAILY [facility] [place] Last Admin: 07/28/20 08:07 Dose: Not Given Documented by: Furosemide (Lasix) 20 mg IVPUSH NOW ONE Stop: 07/29/20 10:46 Last Admin: 07/29/20 10:49 Dose: 20 mg Documented by: Furosemide (Lasix) 20 mg IVPUSH ONETIME ONE Stop: 07/30/20 09:21 Last Admin: 07/30/20 09:47 Dose: 20 mg Documented by: Gabapentin (Neurontin) 400 mg PO TID [facility] [place] Last Admin: 07/28/20 08:08 Dose: Not Given Documented by: Heparin Sodium (Porcine) (Heparin Sodium) Confirm Administered Dose 5,000 units .ROUTE .STK-MED ONE Stop: 07/27/20 00:57 Last Admin: 07/27/20 01:55 Dose: Not Given Documented by: Lactated Ringer's (Ringers, Lactated) 1,000 mls @ 999 mls/hr IV ASDIRECTED [facility] Azithromycin 500 mg/ Sodium (Chloride) 250 mls @ 250 mls/hr IV Q24H [facility] [place] Last Admin: 07/23/20 11:42 Dose: 250 mls/hr Documented by: Sodium Chloride (Normal Saline) 1,000 mls @ 999 mls/hr IV ASDIRECTED [facility] [place] Last Admin: 07/23/20 11:41 Dose: 999 mls/hr Documented by: Ceftriaxone Sodium 1 gm/ (Sodium Chloride) 50 mls @ 100 mls/hr IV ONETIME ONE Stop: 07/23/20 11:04 Last Admin: 07/23/20 11:43 Dose: 100 mls/hr Documented by: Sodium Chloride (Normal Saline) 100 mls @ 3 mls/sec IV ONETIME ONE Stop: 07/23/20 12:21 Last Admin: 07/23/20 14:00 Dose: 3 mls/sec Documented by: Lactated Ringer's (Ringers, Lactated) 1,000 mls [facility] Admin: 07/24/20 07:17 Dose: 125 mls/hr Documented by: Piperacillin/Tazobactam/ (Dextrose 3.375 gm/ Premix) 50 mls @ 100 mls/hr IV Q6H [facility] Last Admin: 07/29/20 04:52 Dose: 100 mls/hr Documented by: Levofloxacin/Dextrose 750 mg/ (Premix) 150 mls @ 100 mls/hr IV Q24H [facility] Last Admin: 07/27/20 16:47 Dose: 100 mls/hr Documented by: Magnesium Sulfate 2 gm/ Premix 50 mls @ 25 mls/hr IV Q6H [facility] Stop: 07/24/20 16:59 Last Admin: 07/24/20 14:44 Dose: 25 mls/hr Documented by: Lactated Ringer's (Ringers, Lactated) 1,000 mls @ 75 mls/hr IV ASDIRECTED [facility] [place] Last Admin: 07/24/20 20:59 Dose: 75 mls/hr Documented by: Lactated Ringer's (Ringers, Lactated) 1,000 mls @ 50 mls/hr IV ASDIRECTED [facility] [place] Last Admin: 07/27/20 08:12 Dose: 50 mls/hr Documented by: Vancomycin HCl 1.75 gm/ Sodium (Chloride) 250 mls @ 166.667 mls/hr IV Q8H [facility] Last Admin: 07/27/20 11:15 Dose: 166.667 mls/hr Documented by: Propofol (Diprivan 100 Ml) Confirm Administered Dose 100 mls @ as directed .ROUTE .STK-MED ONE Stop: 07/27/20 01:18 Last Admin: 07/27/20 01:43 Dose: Not Given Documented by: Vancomycin HCl 1.5 gm/ Sodium (Chloride) 250 mls @ 166.667 mls/hr IV Q8H [facility] [place] Last Admin: 07/28/20 03:12 Dose: 166.667 mls/hr Documented by: Sodium Chloride (Normal Saline) 90 mls @ 3 mls/sec IV ASDIRECTED [facility] Stop: 07/27/20 14:30 Last Admin: 07/27/20 15:05 Dose: 3 mls/sec Documented by: Dextrose/Sodium Chloride (Dextrose 5%-Normal Saline) 1,000 mls @ 50 mls/hr IV ASDIRECTED [facility] [place] Last Admin: 07/31/20 07:33 Dose: 50 mls/hr Documented by: Ibuprofen (Motrin) 800 mg PO BID [facility] Last Admin: 07/28/20 08:07 Dose: Not Given Documented by: Ibuprofen (Motrin) 400 mg PO Q8H PRN PRN Reason: Fever Last Admin: 07/26/20 14:54 Dose: 400 mg Documented by: Iopamidol (Isovue-370 (76%)) 100 ml IV . DIRECTED [facility] Last Admin: 07/23/20 14:00 Dose: 100 ml Documented by: Iopamidol (Isovue-370 (76%)) 100 ml IV . DIRECTED [facility] Stop: 07/27/20 14:30 Last Admin: 07/27/20 15:04 Dose: 100 ml Documented by: Lorazepam (Ativan) 1 mg PO TID [facility] Last Admin: 07/28/20 08:07 Dose: Not Given Documented by: Lorazepam (Ativan) Confirm Administered Dose 2 mg .ROUTE .STK-MED ONE Stop: 07/26/20 23:52 Last Admin: 07/26/20 23:55 Dose: Not Given Documented by: Magnesium Oxide (Magnesium Oxide) 400 mg PO BID [facility] [place] Last Admin: 07/28/20 08:07 Dose: Not Given Documented by: Scopolamine Patch (Check) 1 each TOP DAILY [facility] Stop: 07/29/20 09:01 Last Admin: 07/29/20 08:12 Dose: Not Given Documented by: Olanzapine (Zyprexa) 15 mg PO DAILY [facility] [place] Last Admin: 07/28/20 08:08 Dose: Not Given Documented by: Olanzapine (Zyprexa) 15 mg PO DAILY@1500 PRN PRN Reason: * Last Admin: 07/25/20 08:40 Dose: 15 mg Documented by: Oxycodone HCl (Oxycodone) 5 mg PO Q4H PRN PRN Reason: Pain (moderate 4-6) Last Admin: 07/26/20 20:30 Dose: 5 mg Documented by: Oxycodone HCl (Oxycodone) 5 mg NGTUBE Q4H PRN PRN Reason: Pain (moderate 4-6) Pantoprazole Sodium (Protonix) 40 mg PO ACBREAKFAST [facility] Last Admin: 07/27/20 08:50 Dose: Not Given Documented by: Clozapine 200mg (Ptom) 0 each PO BEDTIME [facility] [place] Last Admin: 07/27/20 20:17 Dose: Not Given Documented by: Polyethylene Glycol (Miralax) 17 gm PO DAILY PRN PRN Reason: Constipation Propofol (Diprivan 20 Ml) Confirm Administered Dose 200 mg .ROUTE .STK-MED ONE Stop: 07/27/20 07:06 Ropinirole HCl (Requip) 1 mg PO BEDTIME [facility] [place] Last Admin: 07/27/20 20:17 Dose: Not Given Documented by: Sodium Chloride (Saline Flush) 10 ml FLUSH ONETIME PRN PRN Reason: PER RADIOLOGY PROTOCOL Last Admin: 07/23/20 14:00 Dose: 10 ml Documented by: Sodium Chloride (Saline Flush) 10 ml FLUSH ONETIME ONE Stop: 07/27/20 13:46 Last Admin: 07/27/20 15:06 Dose: 10 ml Documented by: Succinylcholine Chloride (Quelicin) Confirm Administered Dose 200 mg .ROUTE .STK-MED ONE Stop: 07/27/20 07:06 Tizanidine HCl (Zanaflex) 2 mg PO TID [facility] Last Admin: 07/28/20 08:08 Dose: Not Given Documented by: - Exam Quality Assessment: Supplemental Oxygen General: No Acute Distress, Sedated. No: Alert Lungs: Clear to Auscultation, Normal Respiratory Effort Cardiovascular: Regular Rate, Regular Rhythm GI/Abdominal Exam: Normal Bowel Sounds, Soft, Non-Tender, No Distention Extremities: Pedal Edema (mild bilateral ankle edema ). No: Increased Warmth Skin: Warm, Dry Psy/Mental Status: No: Alert, Agitated Sepsis Event Note - Evaluation Sepsis Screening Result: No Definite Risk - Focused Exam Vital Signs: Vital Signs Temp Pulse Resp BP Pulse Ox Pulse Ox 07/31/20 09:00 36.9 C 72 16 141/80 H 94 L 07/31/20 08:00 36.9 C 73 16 149/87 H 94 L 07/31/20 07:53 76 91 L 07/31/20 07:00 37.2 C 69 14 149/86 H 94 L 07/31/20 06:00 14 150/85 H 94 L 07/31/20 05:00 70 14 146/85 H 94 L 07/31/20 04:00 70 14 147/85 H 94 L 07/31/20 03:00 37.0 C 71 14 146/84 H 94 L 07/31/20 02:00 72 15 143/83 H 94 L 07/31/20 01:00 73 16 144/82 H 93 L 07/31/20 00:00 36.8 C 73 15 139/81 93 L 07/30/20 23:00 73 16 138/80 93 L - Problem List Review Problem List Initiated/Reviewed/Updated: Yes - My Orders Last 24 Hours: My Active Orders 07/30/20 11:00 Albuterol [Proventil Neb Soln] 2.5 mg NEB QIDRT 07/31/20 10:07 Initiate/Renew Non-Violent Restraints (All Ages) Q24H 07/31/20 10:15 Dextrose 5%-0.225% NaCl w/KCl [D5 1/4 NS with 20 mEq KCl] 1,000 ml IV ASDIRECTED 08/01/20 02:15 Welch Catheter Insertion [Insert Urinary Catheter] [OM.PC] Q24H 08/01/20 05:00 BASIC METABOLIC PANEL,BMP [CHEM] Timed CBC W/O DIFF,HEMOGRAM [HEME] Timed (1) - Plan Plan:: ASSESSMENT AND PLAN BILATERAL PNEUMONIA WITH SEPSIS-cultures have been negative. Chest x-ray looks better again today. FiO2 is down to 35% and she is doing much better today. C ultures remain negative. -Continue levofloxacin and ceftazidime -Saline lock IV -Follow-up cultures HYPOXIC AND HYPERCAPNIC RESPIRATORY FAILURE-secondary to bilateral pneumonia and probable component of ARDS. Much better today after changes in ventilator settings yesterday. She is alert and able to follow some commands. She has a strong cough. -Wean PEEP as able with goal of getting down to 5 -Continue mechanical ventilation -Nebulized albuterol as needed -Weaning trial in the morning ACUTE KIDNEY INJURY-urine output has been good and creatinine level has started to improve. 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 -NG tube -Continue oral medications via NG TYPE 2 DIABETES MELLITUS-sugars in the normal range but slowly declining. -Gentle fluids with 5% dextrose -Hold metformin -4 times daily glucometers -Low-dose sliding scale Humalog MAINTENANCE ISSUES -DVT prophylaxis; Lovenox 40 mg subcu daily -GI prophylaxis; PPI -Welch catheter; still necessary for a strict intake and output with a critical patient -Nutrition; n.p.o. DISPOSITION-anticipate discharge to subacute rehab after the hospital stay. Helio Lima MD
[2020-07-31] MEDS: Dextrose 5%-0.225% NaCl w/KCl 1,000 ML IV SCH (11:00)
[2020-07-31] MEDS: Pantoprazole 40 MG Vial IVPUSH SCH (13:36)
[2020-07-31] MEDS: Levofloxacin/Dextrose 5%-Water 750 MG in Premix Bag 1 BAG IV SCH (15:49)
[2020-07-31] MEDS: Enoxaparin 30 MG/0.3 ML Syringe SUBCUT SCH (17:07)
[2020-07-31] MEDS: CLOZAPINE 200 MG NGTUBE SCH (21:27)
[2020-07-31] MEDS: rOPINIRole 1 MG Tab NGTUBE SCH (21:36)
[2020-07-31] MEDS: LORazepam 2 MG/ML SDV IVPUSH PRN ×2 (21:44→23:40)
[2020-08-01] MEDS: Dextrose 5%-0.225% NaCl w/KCl 1,000 ML IV SCH (05:33)
[2020-08-01] MEDS: Insulin Lispro 100 Unit/ML 3 ML KwikPen SUBCUT SCH ×4 (07:09→21:03)
[2020-08-01] MEDS: Albuterol 0.083% 2.5 MG/3 ML Neb Soln NEB SCH ×4 (07:24→21:04)
[2020-08-01] MEDS: OLANZapine 5 MG Tab NGTUBE SCH (08:18)
[2020-08-01] MEDS: Gabapentin 400 MG Cap NGTUBE SCH ×2 (08:19→13:37)
[2020-08-01] MEDS: Citalopram 20 MG Tab NGTUBE SCH (08:19)
[2020-08-01] MEDS: Estradiol 0.5 MG Tab NGTUBE SCH (08:19)
[2020-08-01] MEDS: Dextrose 5% in Water 1,000 ML IV SCH ×2 (08:52→16:34)
[2020-08-01] MEDS ORDERED: Furosemide 20 MG/2 ML VIAL IVPUSH ONE (09:25)
--- NOTE | 2020-08-01 09:25 | PCM.PN ---
- General Info Date of Service: 08/01/20 Subjective Update: There were no acute events overnight. Patient rested well on the ventilator. She did not have any fevers. FiO2 was at 40% overnight. She is able to follow commands including wiggling fingers and toes and lifting her legs off the bed. She has a strong cough and can take a breath of nearly 1 L on CPAP. She did very well with her spontaneous breathing trial this morning. She was successfully extubated and has been stable since extubation. She did not e ndorse any pain or nausea. Functional Status: Reports: Other (still intubated but no sedation ) - Review of Systems General: Denies: Fever - Patient Data Vitals - Most Recent: Last Vital Signs Temp 36.5 C 08/01/20 09:00 Pulse 78 08/01/20 09:00 Resp 20 08/01/20 09:00 BP 155/80 H 08/01/20 09:00 Pulse Ox 92 L 08/01/20 09:00 Weight - Most Recent: 130.907 kg I&O - Last 24 Hours: Intake & Output 07/31/20 08/01/20 08/01/20 22:59 06:59 14:59 Intake Total 150 967 Output Total 450 660 125 Balance -300 307 -125 Lab Results Last 24 Hours: Laboratory Results - last 24 hr 08/01/20 08/01/20 Range/Units 04:50 04:50 WBC 10.5 (4.5-11.0) K/uL RBC 3.17 L (3.30-5.50) M/uL Hgb 9.5 L (12.0-15.0) g/dL Hct 30.3 L (36.0-48.0) % MCV 96 (80-98) fL MCH 30 (27-31) pg MCHC 31 L (32-36) % Plt Count 388 (150-400) K/uL Sodium 151 H (140-148) mmol/L Potassium 3.8 (3.6-5.2) mmol/L Chloride 115 H (100-108) mmol/L Carbon Dioxide 24 (21-32) mmol/L Anion Gap 15.8 H (5.0-14.0) mmol/L BUN 36 H (7-18) mg/dL Creatinine 2.5 H (0.6-1.0) mg/dL Est Cr Clr Drug Dosing 26.34 mL/min Estimated GFR (MDRD) 21 L (>60) Glucose 135 H (74-106) mg/dL Calcium 8.2 L (8.5-10.1) mg/dL Med Orders - Current: Current Medications Acetaminophen (Tylenol) 650 mg NGTUBE Q4H PRN PRN Reason: Pain (Mild 1-3)/fever Albuterol (Proventil Neb Soln) 2.5 mg NEB Q4H PRN PRN Reason: Shortness Of Breath/wheezing Last Admin: 07/26/20 21:49 Dose: 2.5 mg Documented by: Albuterol (Proventil Neb Soln) 2.5 mg NEB QIDRT [facility] Last Admin: 08/01/20 07:24 Dose: 2.5 mg Documented by: Citalopram Hydrobromide (Celexa) 40 mg NGTUBE DAILY [facility] Last Admin: 08/01/20 08:19 Dose: 40 mg Documented by: Dextrose (Glutose 15) 15 gm PO ONETIME PRN PRN Reason: Hypoglycemia Dextrose/Water (Dextrose 50% In Water) 50 ml IV ONETIME PRN PRN Reason: Hypoglycemia Enoxaparin Sodium (Lovenox) 30 mg SUBCUT Q24H [facility] Last Admin: 07/31/20 17:07 Dose: 30 mg Documented by: Estradiol (Estradiol) 0.5 mg NGTUBE DAILY [facility] Last Admin: 08/01/20 08:19 Dose: 0.5 mg Documented by: Gabapentin (Neurontin) 400 mg NGTUBE TID [facility] Last Admin: 08/01/20 08:19 Dose: 400 mg Documented by: Heparin Sodium (Porcine) 5,000 (units/ Sodium Chloride) 501 mls @ 0 mls/hr IV ASDIRECTED [facility] Last Admin: 07/29/20 15:26 Dose: 1 mls/hr Documented by: Propofol (Diprivan 100 Ml) 100 mls @ 15.709 mls/hr IV TITRATE [facility]; Protocol Last Titration: 07/31/20 09:16 Dose: 0 mcg/kg/min, 0 mls/hr Documented by: Levofloxacin/Dextrose 750 mg/ (Premix) 150 mls @ 100 mls/hr IV Q48H [facility] Last Admin: 07/31/20 15:49 Dose: 100 mls/hr Documented by: Ceftazidime 1 gm/ Sodium (Chloride) 50 mls @ 100 mls/hr IV Q24H [facility] Last Admin: 07/31/20 10:53 Dose: 100 mls/hr Documented by: Dextrose/Water (Dextrose 5% In Water) 1,000 mls @ 125 mls/hr IV ASDIRECTED [facility] Last Admin: 08/01/20 08:52 Dose: 125 mls/hr Documented by: Insulin Human Lispro (Humalog) 0 unit SUBCUT QIDACANDBED [facility]; Protocol Last Admin: 08/01/20 07:09 Dose: Not Given Documented by: Lorazepam (Ativan) 0.5 mg IVPUSH Q2H PRN PRN Reason: Anxiety Last Admin: 07/31/20 23:40 Dose: 0.5 mg Documented by: Lorazepam (Ativan) 1 mg NGTUBE TID [facility] Last Admin: 07/28/20 14:59 Dose: 1 mg Documented by: Magnesium Oxide (Magnesium Oxide) 400 mg NGTUBE BID [facility] Last Admin: 07/29/20 08:20 Dose: 400 mg Documented by: Olanzapine (Zyprexa) 15 mg NGTUBE DAILY@1500 PRN PRN Reason: * Olanzapine (Zyprexa) 15 mg NGTUBE DAILY [facility] Last Admin: 08/01/20 08:18 Dose: 15 mg Documented by: Ondansetron HCl (Zofran) 4 mg IV Q4H PRN PRN Reason: Nausea/Vomiting Last Admin: 07/26/20 22:52 Dose: 4 mg Documented by: Pantoprazole Sodium (Protonix Iv) 40 mg IVPUSH Q24H [facility] Last Admin: 07/31/20 13:36 Dose: 40 mg Documented by: Clozapine 200mg (Ptom) 0 each NGTUBE BEDTIME [facility] Last Admin: 07/31/20 21:27 Dose: 1 each Documented by: Ropinirole HCl (Requip) 1 mg NGTUBE BEDTIME [facility] Last Admin: 07/31/20 21:36 Dose: 1 mg Documented by: Scopolamine (Transderm-Scop) 1.5 mg TRDERM Q72H [facility] Last Admin: 07/30/20 14:35 Dose: 1.5 mg Documented by: Sodium Chloride (Saline Flush) 10 ml FLUSH ASDIRECTED PRN PRN Reason: Keep Vein Open Discontinued Medications Acetaminophen (Tylenol) 650 mg PO Q4H PRN PRN Reason: Pain (Mild 1-3)/fever Last Admin: 07/25/20 20:13 Dose: 650 mg Documented by: Citalopram Hydrobromide (Celexa) 40 mg PO DAILY [facility] Last Admin: 07/28/20 08:07 Dose: Not Given Documented by: Enoxaparin Sodium (Lovenox) 40 mg SUBCUT Q24H [facility] Last Admin: 07/28/20 17:06 Dose: 40 mg Documented by: Estradiol (Estradiol) 0.5 mg PO DAILY [facility] Last Admin: 07/28/20 08:07 Dose: Not Given Documented by: Furosemide (Lasix) 20 mg IVPUSH NOW ONE Stop: 07/29/20 10:46 Last Admin: 07/29/20 10:49 Dose: 20 mg Documented by: Furosemide (Lasix) 20 mg IVPUSH ONETIME ONE Stop: 07/30/20 09:21 Last Admin: 07/30/20 09:47 Dose: 20 mg Documented by: Gabapentin (Neurontin) 400 mg PO TID [facility] Last Admin: 07/28/20 08:08 Dose: Not Given Documented by: Heparin Sodium (Porcine) (Heparin Sodium) Confirm Administered Dose 5,000 units .ROUTE .STK-MED ONE Stop: 07/27/20 00:57 Last Admin: 07/27/20 01:55 Dose: Not Given Documented by: Lactated Ringer's (Ringers, Lactated) 1,000 mls @ 999 mls/hr IV ASDIRECTED [facility] Azithromycin 500 mg/ Sodium (Chloride) 250 mls @ 250 mls/hr IV Q24H [facility] Last Admin: 07/23/20 11:42 Dose: 250 mls/hr Documented by: Sodium Chloride (Normal Saline) 1,000 mls @ 999 mls/hr IV ASDIRECTED [facility] Last Admin: 07/23/20 11:41 Dose: 999 mls/hr Documented by: Ceftriaxone Sodium 1 gm/ (Sodium Chloride) 50 mls @ 100 mls/hr IV ONETIME ONE Stop: 07/23/20 11:04 Last Admin: 07/23/20 11:43 Dose: 100 mls/hr Documented by: Sodium Chloride (Normal Saline) 100 mls @ 3 mls/sec IV ONETIME ONE Stop: 07/23/20 12:21 Last Admin: 07/23/20 14:00 Dose: 3 mls/sec Documented by: Lactated Ringer's (Ringers, Lactated) 1,000 mls @ 125 mls/hr IV ASDIRECTED [facility] Last Admin: 07/24/20 07:17 Dose: 125 mls/hr Documented by: Piperacillin/Tazobactam/ (Dextrose 3.375 gm/ Premix) 50 mls @ 100 mls/hr IV Q6H [facility] Last Admin: 07/29/20 04:52 Dose: 100 mls/hr Documented by: Levofloxacin/Dextrose 750 mg/ (Premix) 150 mls @ 100 mls/hr IV Q24H [facility] Last Admin: 07/27/20 16:47 Dose: 100 mls/hr Documented by: Magnesium Sulfate 2 gm/ Premix 50 mls @ 25 mls/hr IV Q6H [facility] Stop: 07/24/20 16:59 Last Admin: 07/24/20 14:44 Dose: 25 mls/hr Documented by: Lactated Ringer's (Ringers, Lactated) 1,000 mls @ 75 mls/hr IV ASDIRECTED [facility] Last Admin: 07/24/20 20:59 Dose: 75 mls/hr Documented by: Lactated Ringer's (Ringers, Lactated) 1,000 [facility]ls [facility] Admin: 07/27/20 08:12 Dose: 50 mls/hr Documented by: Vancomycin HCl 1.75 gm/ Sodium (Chloride) 250 mls @ 166.667 mls/hr IV Q8H [facility] Last Admin: 07/27/20 11:15 Dose: 166.667 mls/hr Documented by: Propofol (Diprivan 100 Ml) Confirm Administered Dose 100 mls @ as directed .ROUTE .STK-MED ONE Stop: 07/27/20 01:18 Last Admin: 07/27/20 01:43 Dose: Not Given Documented by: Vancomycin HCl 1.5 gm/ Sodium (Chloride) 250 mls @ 166.667 mls/hr IV Q8H [facility] Last Admin: 07/28/20 03:12 Dose: 166.667 mls/hr Documented by: Sodium Chloride (Normal Saline) 90 mls @ 3 mls/sec IV ASDIRECTED [facility] Stop: 07/27/20 14:30 Last Admin: 07/27/20 15:05 Dose: 3 mls/sec Documented by: Dextrose/Sodium Chloride (Dextrose 5%-Normal Saline) 1,000 mls @ 50 mls/hr IV ASDIRECTED [facility] Last Admin: 07/31/20 07:33 Dose: 50 mls/hr Documented by: Potassium Chloride/Dextrose/Sod Cl (D5 1/4 Ns With 20 Meq Kcl) 1,000 mls @ 50 mls/hr IV ASDIRECTED [facility] Last Admin: 08/01/20 05:33 Dose: 50 mls/hr Documented by: Ibuprofen (Motrin) 800 mg PO BID [facility] Last Admin: 07/28/20 08:07 Dose: Not Given Documented by: Ibuprofen (Motrin) 400 mg PO Q8H PRN PRN Reason: Fever Last Admin: 07/26/20 14:54 Dose: 400 mg Documented by: Iopamidol (Isovue-370 (76%)) 100 ml IV . DIRECTED [facility] Last Admin: 07/23/20 14:00 Dose: 100 ml Documented by: Iopamidol (Isovue-370 (76%)) 100 ml IV . DIRECTED [facility] Stop: 07/27/20 14:30 Last Admin: 07/27/20 15:04 Dose: 100 ml Documented by: Lorazepam (Ativan) 1 mg PO TID [facility] Last Admin: 07/28/20 08:07 Dose: Not Given Documented by: Lorazepam (Ativan) Confirm Administered Dose 2 mg .ROUTE .[facility]-MED ONE Stop: 07/26/20 23:52 Last Admin: 07/26/20 23:55 Dose: Not Given Documented by: Magnesium Oxide (Magnesium Oxide) 400 mg PO BID [facility] Last Admin: 07/28/20 08:07 Dose: Not Given Documented by: Scopolamine Patch (Check) 1 each TOP DAILY [facility] Stop: 07/29/20 09:01 Last Admin: 07/29/20 08:12 Dose: Not Given Documented by: Olanzapine (Zyprexa) 15 mg PO DAILY [facility] Last Admin: 07/28/20 08:08 Dose: Not Given Documented by: Olanzapine (Zyprexa) 15 mg PO DAILY@1500 PRN PRN Reason: * Last Admin: 07/25/20 08:40 Dose: 15 mg Documented by: Oxycodone HCl (Oxycodone) 5 mg PO Q4H PRN PRN Reason: Pain (moderate 4-6) Last Admin: 07/26/20 20:30 Dose: 5 mg Documented by: Oxycodone HCl (Oxycodone) 5 mg NGTUBE Q4H PRN PRN Reason: Pain (moderate 4-6) Pantoprazole Sodium (Protonix) 40 mg PO ACBREAKFAST [facility] Last Admin: 07/27/20 08:50 Dose: Not Given Documented by: Clozapine 200mg (Ptom) 0 each PO BEDTIME [facility] Last Admin: 07/27/20 20:17 Dose: Not Given Documented by: Polyethylene Glycol (Miralax) 17 gm PO DAILY PRN PRN Reason: Constipation Propofol (Diprivan 20 Ml) Confirm Administered Dose 200 mg .ROUTE .STK-MED ONE Stop: 07/27/20 07:06 Ropinirole HCl (Requip) 1 mg PO BEDTIME [facility] Last Admin: 07/27/20 20:17 Dose: Not Given Documented by: Sodium Chloride (Saline Flush) 10 ml FLUSH ONETIME PRN PRN Reason: PER RADIOLOGY PROTOCOL Last Admin: 07/23/20 14:00 Dose: 10 ml Documented by: Sodium Chloride (Saline Flush) 10 ml FLUSH ONETIME ONE Stop: 07/27/20 13:46 Last Admin: 07/27/20 15:06 Dose: 10 ml Documented by: Succinylcholine Chloride (Quelicin) Confirm Administered Dose 200 mg .ROUTE .STK-MED ONE Stop: 07/27/20 07:06 Tizanidine HCl (Zanaflex) 2 mg PO TID [facility] Last Admin: 07/28/20 08:08 Dose: Not Given Documented by: - Exam Quality Assessment: Supplemental Oxygen General: Alert, Cooperative, No Acute Distress, Other (follows commands) Lungs: Clear to Auscultation, Normal Respiratory Effort Cardiovascular: Regular Rate, Regular Rhythm GI/Abdominal Exam: Normal Bowel Sounds, Soft, No Distention Extremities: Pedal Edema. No: Increased Warmth Skin: Warm, Dry Psy/Mental Status: Alert. No: Agitated Sepsis Event Note - Evaluation Sepsis Screening Result: No Definite Risk - Focused Exam Vital Signs: Vital Signs Temp Pulse Resp BP Pulse Ox Pulse Ox 08/01/20 09:00 36.5 C 78 20 155/80 H 92 L 08/01/20 08:00 36.6 C 80 20 161/85 H 92 L 08/01/20 07:24 78 93 L 08/01/20 07:00 36.8 C 75 18 165/91 H 93 L 08/01/20 05:00 75 18 161/85 H 92 L 08/01/20 04:00 37.0 C 77 18 158/86 H 92 L 08/01/20 03:00 79 19 144/76 H 90 L 08/01/20 02:00 79 19 154/81 H 92 L 08/01/20 01:00 79 19 153/80 H 91 L 08/01/20 00:00 37.2 C 80 18 140/69 91 L 07/31/20 23:00 81 16 155/86 H 93 L 07/31/20 22:00 84 19 152/84 H 93 L - Problem List Review Problem List Initiated/Reviewed/Updated: Yes - My Orders Last 24 Hours: My Active Orders 08/01/20 07:00 RT Ventilator Weaning [RC] DAILY 08/01/20 08:15 Dextrose 5% in Water 1,000 ml IV ASDIRECTED 08/01/20 09:24 Initiate/Renew Non-Violent Restraints (All Ages) Q24H 08/01/20 13:00 BASIC METABOLIC PANEL,BMP [CHEM] Timed 08/02/20 02:15 Welch Catheter Insertion [Insert Urinary Catheter] [OM.PC] Q24H 08/02/20 05:00 BASIC METABOLIC PANEL,BMP [CHEM] Timed CBC W/O DIFF,HEMOGRAM [HEME] Timed (1) - Plan Plan:: ASSESSMENT AND PLAN BILATERAL PNEUMONIA WITH SEPSIS-cultures have been negative. Steady clinical improvement. Tolerating antibiotics and overall doing fairly well. -Continue levofloxacin and ceftazidime -Saline lock IV HYPOXIC AND HYPERCAPNIC RESPIRATORY FAILURE-secondary to bilateral pneumonia and probable component of ARDS. Extubated this morning and doing well so far. Mild evidence for volume overload this morning. -Furosemide 20 mg IV x1 -Supplement oxygen as needed -Scheduled and as needed nebulizers HYPERNATREMIA-level slightly higher today despite changes in fluids yesterday. -D5W -serial sodium levels ACUTE KIDNEY INJURY-urine output has been good and creatinine level has improved each of the last 3 days. -Maintain adequate blood pressures -Closely monitor renal function and urine output SCHIZOPHRENIA-following commands and no behavior issues. Able to communicate some after extubation. -Continue home medications TYPE 2 DIABETES MELLITUS-sugars have risen some with dextrose containing infusions. -D5W as above -Hold metformin until kidney function improves -4 times daily glucometers -Low-dose sliding scale Humalog MAINTENANCE ISSUES -DVT prophylaxis; Lovenox 40 mg subcu daily -GI prophylaxis; PPI -Welch catheter; still necessary for a strict intake and output with a critical patient -Nutrition; clear liquids DISPOSITION-anticipate discharge to subacute rehab after the hospital stay. Helio Lima MD
[2020-08-01] MEDS: Pantoprazole 40 MG Vial IVPUSH SCH (13:38)
[2020-08-01] MEDS: Potassium Chloride 20 MEQ, Lidocaine 1% 2 ML in Sodium Chloride 0.9% 100 ML IV SCH ×2 (15:50→17:55)
[2020-08-01] MEDS: Enoxaparin 30 MG/0.3 ML Syringe SUBCUT SCH (17:29)
[2020-08-01] MEDS ORDERED: OLANZapine 5 MG Tab PO PRN (17:46)
[2020-08-01] MEDS: rOPINIRole 1 MG Tab PO SCH (20:24)
[2020-08-01] MEDS: LORazepam 2 MG/ML SDV IVPUSH PRN (20:28)
[2020-08-01] MEDS ORDERED: Patient's Own Medication 1 Each PO SCH (21:00)
[2020-08-01] MEDS ORDERED: CLOZAPINE 200 MG PO ONE (21:00)
[2020-08-02] MEDS: Dextrose 5% in Water 1,000 ML IV SCH ×2 (00:53→08:20)
[2020-08-02] MEDS: Albuterol 0.083% 2.5 MG/3 ML Neb Soln NEB SCH ×4 (07:07→21:26)
[2020-08-02] MEDS: Insulin Lispro 100 Unit/ML 3 ML KwikPen SUBCUT SCH ×4 (07:49→21:25)
[2020-08-02] MEDS ORDERED: Furosemide 40 MG/4 ML VIAL IVPUSH ONE (08:11)
[2020-08-02] MEDS: Citalopram 20 MG Tab PO SCH (09:16)
[2020-08-02] MEDS: Estradiol 0.5 MG Tab PO SCH (09:16)
[2020-08-02] MEDS: OLANZapine 5 MG Tab PO SCH (09:16)
--- NOTE | 2020-08-02 10:38 | PCM.PN ---
- General Info Date of Service: 08/02/20 Subjective Update: No acute events overnight. Stable since extubation yesterday. Still requiring supplemental oxygen. Obvious evidence for volume overload with diffuse edema. Patient feels somewhat short of breath but no chest pain. No nausea or abdominal pain. She was able to get from the bed to the chair. Tolerating diet so far. Unable to get labs this morning. Functional Status: Reports: Pain Controlled, Tolerating Diet - Review of Systems General: Reports: Weakness. Denies: Fever Pulmonary: Reports: Shortness of Breath - Patient Data Vitals - Most Recent: Last Vital Signs Temp 36.9 C 08/02/20 08:00 Pulse 78 08/02/20 07:08 Resp 28 H 08/02/20 10:00 BP 152/79 H 08/02/20 10:00 Pulse Ox 92 L 08/02/20 10:00 Weight - Most Recent: 130.907 kg I&O - Last 24 Hours: Intake & Output 08/01/20 08/02/20 08/02/20 22:59 06:59 14:59 Intake Total 2584 1525 Output Total 800 300 Balance 1784 1225 Lab Results Last 24 Hours: Laboratory Results - last 24 hr 08/01/20 08/01/20 Range/Units 12:59 18:54 Sodium 149 H 147 (140-148) mmol/L Potassium 3.6 3.9 (3.6-5.2) mmol/L Chloride 112 H 110 H (100-108) mmol/L Carbon Dioxide 27 25 (21-32) mmol/L Anion Gap 13.6 15.9 H (5.0-14.0) mmol/L BUN 36 H 37 H (7-18) mg/dL Creatinine 2.5 H 2.4 H (0.6-1.0) mg/dL Est Cr Clr Drug Dosing 26.34 27.43 mL/min Estimated GFR (MDRD) 21 L 22 L (>60) Glucose 131 H 116 H (74-106) mg/dL Calcium 8.3 L 8.2 L (8.5-10.1) mg/dL Med Orders - Current: Current Medications Acetaminophen (Tylenol) 650 mg PO Q4H PRN PRN Reason: Pain (Mild 1-3)/fever Albuterol (Proventil Neb Soln) 2.5 mg NEB Q4H PRN PRN Reason: Shortness Of Breath/wheezing Last Admin: 07/26/20 21:49 Dose: 2.5 mg Documented by: Albuterol (Proventil Neb Soln) 2.5 mg NEB QIDRT [facility] Last Admin: 08/02/20 07:07 Dose: 2.5 mg Documented by: Citalopram Hydrobromide (Celexa) 40 mg PO DAILY [facility] Last Admin: 08/02/20 09:16 Dose: 40 mg Documented by: Dextrose (Glutose 15) 15 gm PO ONETIME PRN PRN Reason: Hypoglycemia Dextrose/Water (Dextrose 50% In Water) 50 ml IV ONETIME PRN PRN Reason: Hypoglycemia Enoxaparin Sodium (Lovenox) 30 mg SUBCUT Q24H [facility] Last Admin: 08/01/20 17:29 Dose: 30 mg Documented by: Estradiol (Estradiol) 0.5 mg PO DAILY [facility] Last Admin: 08/02/20 09:16 Dose: 0.5 mg Documented by: Gabapentin (Neurontin) 400 mg NGTUBE TID [facility] Last Admin: 08/01/20 13:37 Dose: 400 mg Documented by: Levofloxacin/Dextrose 750 mg/ (Premix) 150 mls @ 100 mls/hr IV Q48H [facility] Last Admin: 07/31/20 15:49 Dose: 100 mls/hr Documented by: Insulin Human Lispro (Humalog) 0 unit SUBCUT QIDACANDBED [facility]; Protocol Last Admin: 08/02/20 07:49 Dose: Not Given Documented by: Lorazepam (Ativan) 0.5 mg IVPUSH Q2H PRN PRN Reason: Anxiety Last Admin: 08/01/20 20:28 Dose: 0.5 mg Documented by: Lorazepam (Ativan) 1 mg PO TID [facility] Olanzapine (Zyprexa) 15 mg PO DAILY@1500 PRN PRN Reason: * Olanzapine (Zyprexa) 15 mg PO DAILY [facility] Last Admin: 08/02/20 09:16 Dose: 15 mg Documented by: Ondansetron HCl (Zofran) 4 mg IV Q4H PRN PRN Reason: Nausea/Vomiting Last Admin: 07/26/20 22:52 Dose: 4 mg Documented by: Patient Own Medication (Ptom) 0 each PO BEDTIME [facility] Ropinirole HCl (Requip) 1 mg PO BEDTIME [facility] Last Admin: 08/01/20 20:24 Dose: 1 mg Documented by: Sodium Chloride (Saline Flush) 10 ml FLUSH ASDIRECTED PRN PRN Reason: Keep Vein Open Discontinued Medications Acetaminophen (Tylenol) 650 mg PO Q4H PRN PRN Reason: Pain (Mild 1-3)/fever Last Admin: 07/25/20 20:13 Dose: 650 mg Documented by: Acetaminophen (Tylenol) 650 mg NGTUBE Q4H PRN PRN Reason: Pain (Mild 1-3)/fever Citalopram Hydrobromide (Celexa) 40 mg PO DAILY [facility] Last Admin: 07/28/20 08:07 Dose: Not Given Documented by: Citalopram Hydrobromide (Celexa) 40 mg NGTUBE DAILY [facility] Last Admin: 08/01/20 08:19 Dose: 40 mg Documented by: Enoxaparin Sodium (Lovenox) 40 mg SUBCUT Q24H [facility] Last Admin: 07/28/20 17:06 Dose: 40 mg Documented by: Estradiol (Estradiol) 0.5 mg PO DAILY [facility] Last Admin: 07/28/20 08:07 Dose: Not Given Documented by: Estradiol (Estradiol) 0.5 mg NGTUBE DAILY [facility] Last Admin: 08/01/20 08:19 Dose: 0.5 mg Documented by: Furosemide (Lasix) 20 mg IVPUSH NOW ONE Stop: 07/29/20 10:46 Last Admin: 07/29/20 10:49 Dose: 20 mg Documented by: Furosemide (Lasix) 20 mg IVPUSH ONETIME ONE Stop: 07/30/20 09:21 Last Admin: 07/30/20 09:47 Dose: 20 mg Documented by: Furosemide (Lasix) 20 mg IVPUSH NOW ONE Stop: 08/01/20 09:26 Last Admin: 08/01/20 09:39 Dose: 20 mg Documented by: Furosemide (Lasix) 20 mg IVPUSH NOW ONE Stop: 08/02/20 08:12 Last Admin: 08/02/20 08:23 Dose: 20 mg Documented by: Gabapentin (Neurontin) 400 mg PO TID [facility] Last Admin: 07/28/20 08:08 Dose: Not Given Documented by: Heparin Sodium (Porcine) (Heparin Sodium) Confirm Administered Dose 5,000 units .ROUTE .STK-MED ONE Stop: 07/27/20 00:57 Last Admin: 07/27/20 01:55 Dose: Not Given Documented by: Lactated Ringer's (Ringers, Lactated) 1,000 mls @ 999 mls/hr IV ASDIRECTED [facility] Azithromycin 500 mg/ Sodium (Chloride) 250 mls @ 250 mls/hr IV Q24H [facility] Last Admin: 07/23/20 11:42 Dose: 250 mls/hr Documented by: Sodium Chloride (Normal Saline) 1,000 mls @ 999 mls/hr IV ASDIRECTED [facility] Last Admin: 07/23/20 11:41 Dose: 999 mls/hr Documented by: Ceftriaxone Sodium 1 gm/ (Sodium Chloride) 50 mls @ 100 mls/hr IV ONETIME ONE Stop: 07/23/20 11:04 Last Admin: 07/23/20 11:43 Dose: 100 mls/hr Documented by: Sodium Chloride (Normal Saline) 100 mls @ 3 mls/sec IV ONETIME ONE Stop: 07/23/20 12:21 Last Admin: 07/23/20 14:00 Dose: 3 mls/sec Documented by: Lactated Ringer's (Ringers, Lactated) 1,000 mls @ 125 mls/hr IV ASDIRECTED [facility] Last Admin: 07/24/20 07:17 Dose: 125 mls/hr Documented by: Piperacillin/Tazobactam/ (Dextrose 3.375 gm/ Premix) 50 mls @ 100 mls/hr IV Q6H [facility] Last Admin: 07/29/20 04:52 Dose: 100 mls/hr Documented by: Levofloxacin/Dextrose 750 mg/ (Premix) 150 mls @ 100 mls/hr IV Q24H [facility] Last Admin: 07/27/20 16:47 Dose: 100 mls/hr Documented by: Magnesium Sulfate 2 gm/ Premix 50 mls @ 25 mls/hr IV Q6H [facility] Stop: 07/24/20 16:59 Last Admin: 07/24/20 14:44 Dose: 25 mls/hr Documented by: Lactated Ringer's (Ringers, Lactated) 1,000 mls @ 75 mls/hr IV ASDIRECTED [facility] Last Admin: 07/24/20 20:59 Dose: 75 mls/hr Documented by: Lactated Ringer's (Ringers, Lactated) 1,000 mls @ 50 mls/hr IV ASDIRECTED [facility] Last Admin: 07/27/20 08:12 Dose: 50 mls/hr Documented by: Vancomycin HCl 1.75 gm/ Sodium (Chloride) 250 mls @ 166.667 mls/hr IV Q8H [facility] Last Admin: 07/27/20 11:15 Dose: 166.667 mls/hr Documented by: Heparin Sodium (Porcine) 5,000 (units/ Sodium Chloride) 501 mls @ 0 mls/hr IV ASDIRECTED [facility] Last Admin: 07/29/20 15:26 Dose: 1 mls/hr Documented by: Propofol (Diprivan 100 Ml) Confirm Administered Dose 100 mls @ as directed .ROUTE .[facility]-MED ONE Stop: 07/27/20 01:18 Last Admin: 07/27/20 01:43 Dose: Not Given Documented by: Propofol (Diprivan 100 Ml) 100 mls @ 15.709 mls/hr IV TITRATE [facility]; Protocol Last Titration: 07/31/20 09:16 Dose: 0 mcg/kg/min, 0 mls/hr Documented by: Vancomycin HCl 1.5 gm/ Sodium (Chloride) 250 mls @ 166.667 mls/hr IV Q8H [facility] Last Admin: 07/28/20 03:12 Dose: 166.667 mls/hr Documented by: Sodium Chloride (Normal Saline) 90 mls @ 3 mls/sec IV ASDIRECTED [facility] Stop: 07/27/20 14:30 Last Admin: 07/27/20 15:05 Dose: 3 mls/sec Documented by: Ceftazidime 1 gm/ Sodium (Chloride) 50 mls @ 100 mls/hr IV Q24H [facility] Last Admin: 08/01/20 11:03 Dose: 100 mls/hr Documented by: Dextrose/Sodium Chloride (Dextrose 5%-Normal Saline) 1,000 mls @ 50 mls/hr IV ASDIRECTED [facility] Last Admin: 07/31/20 07:33 Dose: 50 mls/hr Documented by: Potassium Chloride/Dextrose/Sod Cl (D5 1/4 Ns With 20 Meq Kcl) 1,000 mls @ 50 mls/hr IV ASDIRECTED [facility] Last Admin: 08/01/20 05:33 Dose: 50 mls/hr Documented by: Dextrose/Water (Dextrose 5% In Water) 1,000 mls @ 125 mls/hr IV ASDIRECTED [facility] Last Admin: 08/02/20 08:20 Dose: 125 mls/hr Documented by: Potassium Chloride 20 meq/Lidocaine HCl 2 ml/ Sodium Chloride 112 mls @ 56 mls/hr IV Q2H [facility] Stop: 08/01/20 19:59 Last Admin: 08/01/20 17:55 Dose: 56 mls/hr Documented by: Ibuprofen (Motrin) 800 mg PO BID [facility] Last Admin: 07/28/20 08:07 Dose: Not Given Documented by: Ibuprofen (Motrin) 400 mg PO Q8H PRN PRN Reason: Fever Last Admin: 07/26/20 14:54 Dose: 400 mg Documented by: Iopamidol (Isovue-370 (76%)) 100 ml IV . DIRECTED [facility] Last Admin: 07/23/20 14:00 Dose: 100 ml Documented by: Iopamidol (Isovue-370 (76%)) 100 ml IV . DIRECTED [facility] Stop: 07/27/20 14:30 Last Admin: 07/27/20 15:04 Dose: 100 ml Documented by: Lorazepam (Ativan) 1 mg PO TID [facility] Last Admin: 07/28/20 08:07 Dose: Not Given Documented by: Lorazepam (Ativan) Confirm Administered Dose 2 mg .ROUTE .STK-MED ONE Stop: 07/26/20 23:52 Last Admin: 07/26/20 23:55 Dose: Not Given Documented by: Lorazepam (Ativan) 1 mg NGTUBE TID [facility] Last Admin: 07/28/20 14:59 Dose: 1 mg Documented by: Magnesium Oxide (Magnesium Oxide) 400 mg PO BID [facility] Last Admin: 07/28/20 08:07 Dose: Not Given Documented by: Magnesium Oxide (Magnesium Oxide) 400 mg NGTUBE BID [facility] Last Admin: 07/29/20 08:20 Dose: 400 mg Documented by: Scopolamine Patch (Check) 1 each TOP DAILY [facility] Stop: 07/29/20 09:01 Last Admin: 07/29/20 08:12 Dose: Not Given Documented by: Olanzapine (Zyprexa) 15 mg PO DAILY [facility] Last Admin: 07/28/20 08:08 Dose: Not Given Documented by: Olanzapine (Zyprexa) 15 mg PO DAILY@1500 PRN PRN Reason: * Last Admin: 07/25/20 08:40 Dose: 15 mg Documented by: Olanzapine (Zyprexa) 15 mg NGTUBE DAILY@1500 PRN PRN Reason: * Olanzapine (Zyprexa) 15 mg NGTUBE DAILY [facility] Last Admin: 08/01/20 08:18 Dose: 15 mg Documented by: Oxycodone HCl (Oxycodone) 5 mg PO Q4H PRN PRN Reason: Pain (moderate 4-6) Last Admin: 07/26/20 20:30 Dose: 5 mg Documented by: Oxycodone HCl (Oxycodone) 5 mg NGTUBE Q4H PRN PRN Reason: Pain (moderate 4-6) Pantoprazole Sodium (Protonix) 40 mg PO ACBREAKFAST [facility] Last Admin: 07/27/20 08:50 Dose: Not Given Documented by: Pantoprazole Sodium (Protonix Iv) 40 mg IVPUSH Q24H [facility] Last Admin: 08/01/20 13:38 Dose: 40 mg Documented by: Clozapine 200mg (Ptom) 0 each PO BEDTIME [facility] Last Admin: 07/27/20 20:17 Dose: Not Given Documented by: Clozapine 200mg (Ptom) 0 each NGTUBE BEDTIME [facility] Last Admin: 07/31/20 21:27 Dose: 1 each Documented by: Patient Own Medication (Ptom) 1 each PO BEDTIME [facility] Clozapine 200 Mg Tab (*Pt Own Med*) 0 each PO ONETIME ONE Stop: 08/01/20 21:01 Last Admin: 08/01/20 20:22 Dose: 1 each Documented by: Polyethylene Glycol (Miralax) 17 gm PO DAILY PRN PRN Reason: Constipation Propofol (Diprivan 20 Ml) Confirm Administered Dose 200 mg .ROUTE .STK-MED ONE Stop: 07/27/20 07:06 Ropinirole HCl (Requip) 1 mg PO BEDTIME [facility] Last Admin: 07/27/20 20:17 Dose: Not Given Documented by: Ropinirole HCl (Requip) 1 mg NGTUBE BEDTIME [facility] Last Admin: 07/31/20 21:36 Dose: 1 mg Documented by: Scopolamine (Transderm-Scop) 1.5 mg TRDERM Q72H [facility] Last Admin: 07/30/20 14:35 Dose: 1.5 mg Documented by: Sodium Chloride (Saline Flush) 10 ml FLUSH ONETIME PRN PRN Reason: PER RADIOLOGY PROTOCOL Last Admin: 07/23/20 14:00 Dose: 10 ml Documented by: Sodium Chloride (Saline Flush) 10 ml FLUSH ONETIME ONE Stop: 07/27/20 13:46 Last Admin: 07/27/20 15:06 Dose: 10 ml Documented by: Succinylcholine Chloride (Quelicin) Confirm Administered Dose 200 mg .ROUTE .STK-MED ONE Stop: 07/27/20 07:06 Tizanidine HCl (Zanaflex) 2 mg PO TID [facility] Last Admin: 07/28/20 08:08 Dose: Not Given Documented by: - Exam Quality Assessment: Supplemental Oxygen General: Alert, Oriented, Cooperative, No Acute Distress Lungs: Normal Respiratory Effort, Crackles (mild diffuse) Cardiovascular: Regular Rate, Regular Rhythm GI/Abdominal Exam: Soft, No Distention Extremities: Pedal Edema. No: Increased Warmth Skin: Warm, Dry Psy/Mental Status: Alert, Normal Affect Sepsis Event Note - Evaluation Sepsis Screening Result: No Definite Risk - Focused Exam Vital Signs: Vital Signs Temp Pulse Resp BP Pulse Ox 08/02/20 10:00 28 H 152/79 H 92 L 08/02/20 08:00 36.9 C 25 H 137/83 91 L 08/02/20 07:08 78 08/02/20 05:30 80 20 144/60 H 92 L 08/02/20 04:00 37.0 C 77 20 125/78 92 L 08/02/20 02:00 76 20 141/69 H 92 L 08/02/20 01:00 16 135/70 93 L 08/02/20 00:05 36.9 C 08/02/20 00:00 19 119/69 92 L - Problem List Review Problem List Initiated/Reviewed/Updated: Yes - My Orders Last 24 Hours: My Active Orders 08/01/20 13:02 Consult to Reefer Engineer [CONS] Routine 08/01/20 14:46 Arterial Line Discontinue [OM.PC] Routine 08/01/20 17:46 Acetaminophen [Tylenol] 650 mg PO Q4H PRN OLANZapine [ZyPREXA] 15 mg PO DAILY@1500 PRN 08/01/20 21:00 LORazepam [Ativan] 1 mg PO TID rOPINIRole [Requip] 1 mg PO BEDTIME 08/02/20 07:30 PT Evaluation and Treatment [CONS] Routine 08/02/20 09:00 Citalopram [Celexa] 40 mg PO DAILY OLANZapine [ZyPREXA] 15 mg PO DAILY estradioL 0.5 mg PO DAILY 08/02/20 09:08 Convert IV to Saline Lock [OM.PC] Routine 08/02/20 Lunch Regular Diet [DIET] 08/02/20 16:00 Furosemide [Lasix] 20 mg IVPUSH ONETIME ONE 08/02/20 21:00 Patient's Own Medication [Ptom] 0 each PO BEDTIME 08/03/20 02:15 Welch Catheter Insertion [Insert Urinary Catheter] [OM.PC] Q24H - Plan Plan:: ASSESSMENT AND PLAN BILATERAL PNEUMONIA WITH SEPSIS-cultures have been negative. Steady clinical improvement but still requiring supplemental oxygen. -Continue levofloxacin -Discontinue ceftazidime -Saline lock IV HYPOXIC AND HYPERCAPNIC RESPIRATORY FAILURE-secondary to bilateral pneumonia and probable component of ARDS. Extubated 08/01 and doing well since extubation. Obvious evidence for volume overload. -Furosemide 20 mg IV x2 doses today and reassess in the morning -Supplement oxygen as needed -Scheduled and as needed nebulizers HYPERNATREMIA-level had been trending down but unable to assess due to inability to gather blood for sampling. -Saline lock IV -Recheck labs in the morning ACUTE KIDNEY INJURY-urine output has been good and creatinine level had improved. Unable to get blood to recheck today. 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 -D5W as above -Hold metformin until kidney function improves -4 times daily glucometers -Low-dose sliding scale Humalog MAINTENANCE ISSUES -DVT prophylaxis; Lovenox 40 mg subcu daily -GI prophylaxis; PPI -Welch catheter; still necessary for a strict intake and output with a critical patient -Nutrition; regular diet DISPOSITION-anticipate discharge to subacute rehab after the hospital stay. Helio Lima MD
[2020-08-02] MEDS: LORazepam 1 MG Tab PO SCH ×2 (14:58→21:26)
[2020-08-02] MEDS: tiZANidine 2 MG Tab PO SCH ×2 (14:58→21:26)
[2020-08-02] MEDS: Acetaminophen Soln 650 MG/20.3 ML UD Cup PO PRN ×2 (14:59→19:20)
[2020-08-02] MEDS: Levofloxacin/Dextrose 5%-Water 750 MG in Premix Bag 1 BAG IV SCH (15:30)
[2020-08-02] MEDS ORDERED: Furosemide 20 MG/2 ML VIAL IVPUSH ONE (16:00)
[2020-08-02] MEDS: Enoxaparin 30 MG/0.3 ML Syringe SUBCUT SCH (16:53)
[2020-08-02] MEDS: Patient's Own Medication 1 Each PO SCH (21:25)
[2020-08-02] MEDS: rOPINIRole 1 MG Tab PO SCH (21:26)
[2020-08-03] MEDS: Albuterol 0.083% 2.5 MG/3 ML Neb Soln NEB SCH ×4 (07:21→20:25)
[2020-08-03] MEDS: Insulin Lispro 100 Unit/ML 3 ML KwikPen SUBCUT SCH ×4 (07:41→22:09)
[2020-08-03] MEDS: tiZANidine 2 MG Tab PO SCH ×3 (09:21→20:25)
[2020-08-03] MEDS: OLANZapine 5 MG Tab PO SCH (09:21)
[2020-08-03] MEDS: Estradiol 0.5 MG Tab PO SCH (09:22)
[2020-08-03] MEDS: Citalopram 20 MG Tab PO SCH (09:22)
[2020-08-03] MEDS: Furosemide 20 MG/2 ML VIAL IVPUSH SCH (09:23)
[2020-08-03] MEDS: LORazepam 1 MG Tab PO SCH ×3 (09:25→20:24)
[2020-08-03] MEDS: Potassium Chloride 20 MEQ Tab.ER PO SCH ×2 (09:25→20:25)
--- NOTE | 2020-08-03 10:11 | PCM.PN ---
- General Info Date of Service: 08/03/20 Subjective Update: Overnight the patient had difficulty with an increasing respiratory rate. She said that she just tired about and was having difficulty catching her breath. She did require noninvasive ventilation for several hours overnight but is back on nasal cannula this morning. She feels a little short of breath but this is stable. She has an occasional cough. No abdominal pain or nausea. Good response to diuresis over the past couple of days but still has evidence for volume overload. Kidney function is stable. Functional Status: Reports: Pain Controlled, Tolerating Diet - Review of Systems General: Reports: Weakness Pulmonary: Reports: Shortness of Breath - Patient Data Vitals - Most Recent: Last Vital Signs Temp 36.7 C 08/03/20 01:00 Pulse 82 08/03/20 08:00 Resp 21 H 08/03/20 08:00 BP 145/81 H 08/03/20 08:00 Pulse Ox 92 L 08/03/20 08:00 Weight - Most Recent: 130.907 kg I&O - Last 24 Hours: Intake & Output 08/02/20 08/03/20 08/03/20 22:59 06:59 14:59 Intake Total 600 1600 Output Total 950 1425 Balance -350 175 Lab Results Last 24 Hours: Laboratory Results - last 24 hr 08/03/20 Range/Units 05:30 Sodium 141 (140-148) mmol/L Potassium 3.4 L (3.6-5.2) mmol/L Chloride 105 (100-108) mmol/L Carbon Dioxide 26 (21-32) mmol/L Anion Gap 13.4 (5.0-14.0) mmol/L BUN 39 H (7-18) mg/dL Creatinine 2.4 H (0.6-1.0) mg/dL Est Cr Clr Drug Dosing 27.43 mL/min Estimated GFR (MDRD) 22 L (>60) Glucose 123 H (74-106) mg/dL Calcium 8.6 (8.5-10.1) mg/dL Med Orders - Current: Current Medications Acetaminophen (Tylenol) 650 mg PO Q4H PRN PRN Reason: Pain (Mild 1-3)/fever Last Admin: 08/02/20 19:20 Dose: 650 mg Documented by: Albuterol (Proventil Neb Soln) 2.5 mg NEB Q4H PRN PRN Reason: Shortness Of Breath/wheezing Last Admin: 07/26/20 21:49 Dose: 2.5 mg Documented by: Albuterol (Proventil Neb Soln) 2.5 mg NEB QIDRT [facility] Last Admin: 08/03/20 07:21 Dose: 2.5 mg Documented by: Citalopram Hydrobromide (Celexa) 40 mg PO DAILY [facility] Last Admin: 08/03/20 09:22 Dose: 40 mg Documented by: Dextrose (Glutose 15) 15 gm PO ONETIME PRN PRN Reason: Hypoglycemia Dextrose/Water (Dextrose 50% In Water) 50 ml IV ONETIME PRN PRN Reason: Hypoglycemia Enoxaparin Sodium (Lovenox) 30 mg SUBCUT Q24H [facility] Last Admin: 08/02/20 16:53 Dose: 30 mg Documented by: Estradiol (Estradiol) 0.5 mg PO DAILY [facility] Last Admin: 08/03/20 09:22 Dose: 0.5 mg Documented by: Furosemide (Lasix) 20 mg IVPUSH DAILY [facility] Last Admin: 08/03/20 09:23 Dose: 20 mg Documented by: Furosemide (Lasix) 20 mg IVPUSH ONETIME ONE Stop: 08/03/20 18:01 Gabapentin (Neurontin) 400 mg NGTUBE TID [facility] Last Admin: 08/01/20 13:37 Dose: 400 mg Documented by: Levofloxacin/Dextrose 750 mg/ (Premix) 150 mls @ 100 mls/hr IV Q48H [facility] Last Admin: 08/02/20 15:30 Dose: 100 mls/hr Documented by: Insulin Human Lispro (Humalog) 0 unit SUBCUT QIDACANDBED [facility]; Protocol Last Admin: 08/03/20 07:41 Dose: Not Given Documented by: Lorazepam (Ativan) 0.5 mg IVPUSH Q2H PRN PRN Reason: Anxiety Last Admin: 08/01/20 20:28 Dose: 0.5 mg Documented by: Lorazepam (Ativan) 1 mg PO TID [facility] Last Admin: 08/03/20 09:25 Dose: 1 mg Documented by: Olanzapine (Zyprexa) 15 mg PO DAILY@1500 PRN PRN Reason: * Olanzapine (Zyprexa) 15 mg PO DAILY [facility] Last Admin: 08/03/20 09:21 Dose: 15 mg Documented by: Ondansetron HCl (Zofran) 4 mg IV Q4H PRN PRN Reason: Nausea/Vomiting Last Admin: 07/26/20 22:52 Dose: 4 mg Documented by: Patient Own Medication (Ptom) 0 each PO BEDTIME [facility] Last Admin: 08/02/20 21:25 Dose: 1 each Documented by: Potassium Chloride (Klor-Con M20) 40 meq PO BID [facility] Last Admin: 08/03/20 09:25 Dose: 40 meq Documented by: Ropinirole HCl (Requip) 1 mg PO BEDTIME [facility] Last Admin: 08/02/20 21:26 Dose: 1 mg Documented by: Sodium Chloride (Saline Flush) 10 ml FLUSH ASDIRECTED PRN PRN Reason: Keep Vein Open Tizanidine HCl (Zanaflex) 2 mg PO TID [facility] Last Admin: 08/03/20 09:21 Dose: 2 mg Documented by: Discontinued Medications Acetaminophen (Tylenol) 650 mg PO Q4H PRN PRN Reason: Pain (Mild 1-3)/fever Last Admin: 07/25/20 20:13 Dose: 650 mg Documented by: Acetaminophen (Tylenol) 650 mg NGTUBE Q4H PRN PRN Reason: Pain (Mild 1-3)/fever Citalopram Hydrobromide (Celexa) 40 mg PO DAILY [facility] Last Admin: 07/28/20 08:07 Dose: Not Given Documented by: Citalopram Hydrobromide (Celexa) 40 mg NGTUBE DAILY [facility] Last Admin: 08/01/20 08:19 Dose: 40 mg Documented by: Enoxaparin Sodium (Lovenox) 40 mg SUBCUT Q24H [facility] Last Admin: 07/28/20 17:06 Dose: 40 mg Documented by: Estradiol (Estradiol) 0.5 mg PO DAILY [facility] Last Admin: 07/28/20 08:07 Dose: Not Given Documented by: Estradiol (Estradiol) 0.5 mg NGTUBE DAILY [facility] Last Admin: 08/01/20 08:19 Dose: 0.5 mg Documented by: Furosemide (Lasix) 20 mg IVPUSH NOW ONE Stop: 07/29/20 10:46 Last Admin: 07/29/20 10:49 Dose: 20 mg Documented by: Furosemide (Lasix) 20 mg IVPUSH ONETIME ONE Stop: 07/30/20 09:21 Last Admin: 07/30/20 09:47 Dose: 20 mg Documented by: Furosemide (Lasix) 20 mg IVPUSH NOW ONE Stop: 08/01/20 09:26 Last Admin: 08/01/20 09:39 Dose: 20 mg Documented by: Furosemide (Lasix) 20 mg IVPUSH NOW ONE Stop: 08/02/20 08:12 Last Admin: 08/02/20 08:23 Dose: 20 mg Documented by: Furosemide (Lasix) 20 mg IVPUSH ONETIME ONE Stop: 08/02/20 16:01 Last Admin: 08/02/20 15:27 Dose: 20 mg Documented by: Gabapentin (Neurontin) 400 mg PO TID [facility] Last Admin: 07/28/20 08:08 Dose: Not Given Documented by: Heparin Sodium (Porcine) (Heparin Sodium) Confirm Administered Dose 5,000 units .ROUTE .STK-MED ONE Stop: 07/27/20 00:57 Last Admin: 07/27/20 01:55 Dose: Not Given Documented by: Lactated Ringer's (Ringers, Lactated) 1,000 mls @ 999 mls/hr IV ASDIRECTED [facility] Azithromycin 500 mg/ Sodium (Chloride) 250 mls @ 250 mls/hr IV Q24H [facility] Last Admin: 07/23/20 11:42 Dose: 250 mls/hr Documented by: Sodium Chloride (Normal Saline) 1,000 mls @ 999 mls/hr IV ASDIRECTED [facility] Last Admin: 07/23/20 11:41 Dose: 999 mls/hr Documented by: Ceftriaxone Sodium 1 gm/ (Sodium Chloride) 50 mls @ 100 mls/hr IV ONETIME ONE Stop: 07/23/20 11:04 Last Admin: 07/23/20 11:43 Dose: 100 mls/hr Documented by: Sodium Chloride (Normal Saline) 100 mls @ 3 mls/sec IV ONETIME ONE Stop: 07/23/20 12:21 Last Admin: 07/23/20 14:00 Dose: 3 mls/sec Documented by: Lactated Ringer's (Ringers, Lactated) 1,000 mls @ 125 mls/hr IV ASDIRECTED [facility] Last Admin: 07/24/20 07:17 Dose: 125 mls/hr Documented by: Piperacillin/Tazobactam/ (Dextrose 3.375 gm/ Premix) 50 mls @ 100 mls/hr IV Q6H [facility] Last Admin: 07/29/20 04:52 Dose: 100 mls/hr Documented by: Levofloxacin/Dextrose 750 mg/ (Premix) 150 mls @ 100 mls/hr IV Q24H [facility] Last Admin: 07/27/20 16:47 Dose: 100 mls/hr Documented by: Magnesium Sulfate 2 gm/ Premix 50 mls @ 25 mls/hr IV Q6H [facility] Stop: 07/24/20 16:59 Last Admin: 07/24/20 14:44 Dose: 25 mls/hr Documented by: Lactated Ringer's (Ringers, Lactated) 1,000 mls @ 75 mls/hr IV ASDIRECTED [facility] Last Admin: 07/24/20 20:59 Dose: 75 mls/hr Documented by: Lactated Ringer's (Ringers, Lactated) 1,000 mls @ 50 mls/hr IV ASDIRECTED [facility] Last Admin: 07/27/20 08:12 Dose: 50 mls/hr Documented by: Vancomycin HCl 1.75 gm/ Sodium (Chloride) 250 mls @ 166.667 mls/hr IV Q8H [facility] Last Admin: 07/27/20 11:15 Dose: 166.667 mls/hr Documented by: Heparin Sodium (Porcine) 5,000 (units/ Sodium Chloride) 501 mls @ 0 mls/hr IV ASDIRECTED [facility] Last Admin: 07/29/20 15:26 Dose: 1 mls/hr Documented by: Propofol (Diprivan 100 Ml) Confirm Administered Dose 100 mls @ as directed .ROUTE .STK-MED ONE Stop: 07/27/20 01:18 Last Admin: 07/27/20 01:43 Dose: Not Given Documented by: Propofol (Diprivan 100 Ml) 100 mls @ 15.709 mls/hr IV TITRATE [facility]; Protocol Last Titration: 07/31/20 09:16 Dose: 0 mcg/kg/min, 0 mls/hr Documented by: Vancomycin HCl 1.5 gm/ Sodium (Chloride) 250 mls @ 166.667 mls/hr IV Q8H [facility] Last Admin: 07/28/20 03:12 Dose: 166.667 mls/hr Documented by: Sodium Chloride (Normal Saline) 90 mls @ 3 mls/sec IV ASDIRECTED [facility] Stop: 07/27/20 14:30 Last Admin: 07/27/20 15:05 Dose: 3 mls/sec Documented by: Ceftazidime 1 gm/ Sodium (Chloride) 50 mls @ 100 mls/hr IV Q24H [facility] Last Admin: 08/01/20 11:03 Dose: 100 mls/hr Documented by: Dextrose/Sodium Chloride (Dextrose 5%-Normal Saline) 1,000 mls @ 50 mls/hr IV ASDIRECTED [facility] Last Admin: 07/31/20 07:33 Dose: 50 mls/hr Documented by: Potassium Chloride/Dextrose/Sod Cl (D5 1/4 Ns With 20 Meq Kcl) 1,000 mls @ 50 mls/hr IV ASDIRECTED [facility] Last Admin: 08/01/20 05:33 Dose: 50 mls/hr Documented by: Dextrose/Water (Dextrose 5% In Water) 1,000 mls @ 125 mls/hr IV ASDIRECTED [facility] Last Admin: 08/02/20 08:20 Dose: 125 mls/hr Documented by: Potassium Chloride 20 meq/Lidocaine HCl 2 ml/ Sodium Chloride 112 mls @ 56 mls/hr IV Q2H [facility] Stop: 08/01/20 19:59 Last Admin: 08/01/20 17:55 Dose: 56 mls/hr Documented by: Ibuprofen (Motrin) 800 mg PO BID [facility] Last Admin: 07/28/20 08:07 Dose: Not Given Documented by: Ibuprofen (Motrin) 400 mg PO Q8H PRN PRN Reason: Fever Last Admin: 07/26/20 14:54 Dose: 400 mg Documented by: Iopamidol (Isovue-370 (76%)) 100 ml IV . DIRECTED [facility] Last Admin: 07/23/20 14:00 Dose: 100 ml Documented by: Iopamidol (Isovue-370 (76%)) 100 ml IV . DIRECTED [facility] Stop: 07/27/20 14:30 Last Admin: 07/27/20 15:04 Dose: 100 ml Documented by: Lorazepam (Ativan) 1 mg PO TID [facility] Last Admin: 07/28/20 08:07 Dose: Not Given Documented by: Lorazepam (Ativan) Confirm Administered Dose 2 mg .ROUTE .STK-MED ONE Stop: 07/26/20 23:52 Last Admin: 07/26/20 23:55 Dose: Not Given Documented by: Lorazepam (Ativan) 1 mg NGTUBE TID [facility] Last Admin: 07/28/20 14:59 Dose: 1 mg Documented by: Magnesium Oxide (Magnesium Oxide) 400 mg PO BID [facility] Last Admin: 07/28/20 08:07 Dose: Not Given Documented by: Magnesium Oxide (Magnesium Oxide) 400 mg NGTUBE BID [facility] Last Admin: 07/29/20 08:20 Dose: 400 mg Documented by: Scopolamine Patch (Check) 1 each TOP DAILY [facility] Stop: 07/29/20 09:01 Last Admin: 07/29/20 08:12 Dose: Not Given Documented by: Olanzapine (Zyprexa) 15 mg PO DAILY [facility] Last Admin: 07/28/20 08:08 Dose: Not Given Documented by: Olanzapine (Zyprexa) 15 mg PO DAILY@1500 PRN PRN Reason: * Last Admin: 07/25/20 08:40 Dose: 15 mg Documented by: Olanzapine (Zyprexa) 15 mg NGTUBE DAILY@1500 PRN PRN Reason: * Olanzapine (Zyprexa) 15 mg NGTUBE DAILY [facility] Last Admin: 08/01/20 08:18 Dose: 15 mg Documented by: Oxycodone HCl (Oxycodone) 5 mg PO Q4H PRN PRN Reason: Pain (moderate 4-6) Last Admin: 07/26/20 20:30 Dose: 5 mg Documented by: Oxycodone HCl (Oxycodone) 5 mg NGTUBE Q4H PRN PRN Reason: Pain (moderate 4-6) Pantoprazole Sodium (Protonix) 40 mg PO ACBREAKFAST [facility] Last Admin: 07/27/20 08:50 Dose: Not Given Documented by: Pantoprazole Sodium (Protonix Iv) 40 mg IVPUSH Q24H [facility] Last Admin: 08/01/20 13:38 Dose: 40 mg Documented by: Clozapine 200mg (Ptom) 0 each PO BEDTIME [facility] Last Admin: 07/27/20 20:17 Dose: Not Given Documented by: Clozapine 200mg (Ptom) 0 each NGTUBE BEDTIME [facility] Last Admin: 07/31/20 21:27 Dose: 1 each Documented by: Patient Own Medication (Ptom) 1 each PO BEDTIME [facility] Last Admin: 08/02/20 19:24 Dose: Not Given Documented by: Clozapine 200 Mg Tab (*Pt Own Med*) 0 each PO ONETIME ONE Stop: 08/01/20 21:01 Last Admin: 08/01/20 20:22 Dose: 1 each Documented by: Polyethylene Glycol (Miralax) 17 gm PO DAILY PRN PRN Reason: Constipation Propofol (Diprivan 20 Ml) Confirm Administered Dose 200 mg .ROUTE .STK-MED ONE Stop: 07/27/20 07:06 Ropinirole HCl (Requip) 1 mg PO BEDTIME [facility] Last Admin: 07/27/20 20:17 Dose: Not Given Documented by: Ropinirole HCl (Requip) 1 mg NGTUBE BEDTIME [facility] Last Admin: 07/31/20 21:36 Dose: 1 mg Documented by: Scopolamine (Transderm-Scop) 1.5 mg TRDERM Q72H [facility] Last Admin: 07/30/20 14:35 Dose: 1.5 mg Documented by: Sodium Chloride (Saline Flush) 10 ml FLUSH ONETIME PRN PRN Reason: PER RADIOLOGY PROTOCOL Last Admin: 07/23/20 14:00 Dose: 10 ml Documented by: Sodium Chloride (Saline Flush) 10 ml FLUSH ONETIME ONE Stop: 07/27/20 13:46 Last Admin: 07/27/20 15:06 Dose: 10 ml Documented by: Succinylcholine Chloride (Quelicin) Confirm Administered Dose 200 mg .ROUTE .STK-MED ONE Stop: 07/27/20 07:06 Tizanidine HCl (Zanaflex) 2 mg PO TID [facility] Last Admin: 07/28/20 08:08 Dose: Not Given Documented by: - Exam Quality Assessment: Supplemental Oxygen General: Alert, Oriented, Cooperative, No Acute Distress Lungs: Normal Respiratory Effort, Crackles (right lung base) Cardiovascular: Regular Rate, Regular Rhythm GI/Abdominal Exam: Normal Bowel Sounds, Soft, No Distention Extremities: Pedal Edema. No: Increased Warmth Skin: Warm, Dry Psy/Mental Status: Alert, Normal Affect Sepsis Event Note - Evaluation Sepsis Screening Result: No Definite Risk - Focused Exam Vital Signs: Vital Signs Temp Pulse Resp BP Pulse Ox 08/03/20 08:00 82 21 H 145/81 H 92 L 08/03/20 07:22 78 08/03/20 06:00 17 144/90 H 93 L 08/03/20 05:00 21 H 151/90 H 94 L 08/03/20 04:00 23 H 135/75 93 L 08/03/20 03:00 26 H 136/82 96 08/03/20 02:00 26 H 121/70 94 L 08/03/20 01:00 36.7 C 24 H 116/62 94 L 08/03/20 00:00 24 H 129/72 93 L 08/02/20 23:00 21 H 133/73 94 L - Problem List Review Problem List Initiated/Reviewed/Updated: Yes - My Orders Last 24 Hours: My Active Orders 08/02/20 Lunch Regular Diet [DIET] 08/02/20 14:00 tiZANidine [Zanaflex] 2 mg PO TID 08/02/20 21:00 Patient's Own Medication [Ptom] 0 each PO BEDTIME 08/03/20 09:00 Furosemide [Lasix] 20 mg IVPUSH DAILY Potassium Chloride [Klor-Con M20] 40 meq PO BID 08/03/20 18:00 Furosemide [Lasix] 20 mg IVPUSH ONETIME ONE 08/04/20 02:15 Wlech Catheter Insertion [Insert Urinary Catheter] [OM.PC] Q24H 08/04/20 05:00 BASIC METABOLIC PANEL,BMP [CHEM] Timed - Plan Plan:: ASSESSMENT AND PLAN BILATERAL PNEUMONIA WITH SEPSIS-cultures have been negative. Steady clinical improvement but still requiring supplemental oxygen. -Continue levofloxacin -Saline lock IV HYPOXIC AND HYPERCAPNIC RESPIRATORY FAILURE-secondary to bilateral pneumonia and probable component of ARDS. Extubated 08/01 and doing well since extubation. Still evidence for volume overload and I think this is her biggest michelle towards more dramatic improvement. She did require NIPPV overnight. -Furosemide 20 mg IV x2 doses today and reassess in the morning -Supplement oxygen as needed -Scheduled and as needed nebulizers HYPERNATREMIA-resolved. -Saline lock IV -Recheck labs in the morning ACUTE KIDNEY INJURY-urine output has been good and creatinine level had improved but has now leveled out at 2.4. 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 -Continue home medications TYPE 2 DIABETES MELLITUS-sugars stable. -Hold metformin until kidney function improves -4 times daily glucometers -Low-dose sliding scale Humalog MAINTENANCE ISSUES -DVT prophylaxis; Lovenox 40 mg subcu daily -GI prophylaxis; PPI -Welch catheter; still necessary for a strict intake and output with a critical patient, will reassess tomorrow -Nutrition; regular diet DISPOSITION-anticipate discharge to subacute rehab after the hospital stay. Helio Lima MD
[2020-08-03] MEDS: Acetaminophen Soln 650 MG/20.3 ML UD Cup PO PRN ×2 (13:13→20:24)
[2020-08-03] MEDS: Enoxaparin 30 MG/0.3 ML Syringe SUBCUT SCH (16:56)
[2020-08-03] MEDS ORDERED: Furosemide 20 MG/2 ML VIAL IVPUSH ONE (18:00)
[2020-08-03] MEDS: rOPINIRole 1 MG Tab PO SCH (20:24)
[2020-08-03] MEDS: Gabapentin 400 MG Cap NGTUBE SCH (20:25)
[2020-08-03] MEDS: Patient's Own Medication 1 Each PO SCH (20:25)
[2020-08-04] MEDS: Albuterol 0.083% 2.5 MG/3 ML Neb Soln NEB SCH ×4 (07:27→20:00)
[2020-08-04] MEDS: Insulin Lispro 100 Unit/ML 3 ML KwikPen SUBCUT SCH ×4 (08:12→19:29)
[2020-08-04] MEDS: Furosemide 20 MG/2 ML VIAL IVPUSH SCH ×2 (08:14→16:55)
[2020-08-04] MEDS: OLANZapine 5 MG Tab PO SCH (08:42)
[2020-08-04] MEDS: Gabapentin 400 MG Cap NGTUBE SCH (08:43)
[2020-08-04] MEDS: LORazepam 1 MG Tab PO SCH ×3 (08:43→20:00)
[2020-08-04] MEDS: tiZANidine 2 MG Tab PO SCH (08:43)
[2020-08-04] MEDS: Estradiol 0.5 MG Tab PO SCH (08:43)
[2020-08-04] MEDS: Citalopram 20 MG Tab PO SCH (08:43)
[2020-08-04] MEDS: Potassium Chloride 20 MEQ Tab.ER PO SCH ×2 (08:44→20:00)
--- NOTE | 2020-08-04 10:23 | PCM.PN ---
- General Info Date of Service: 08/04/20 Subjective Update: No acute events overnight. Shortness of breath is better today and she is down to 2 L of supplemental oxygen. She did not require noninvasive ventilation. Good response to diuresis and kidney function is slightly better today. No fevers. No significant cough. Tolerating her diet. She is able to get up and walk to the bathroom and back. Potassium is better today. Functional Status: Reports: Pain Controlled, Tolerating Diet - Review of Systems General: Reports: Weakness Cardiovascular: Reports: Edema - Patient Data Vitals - Most Recent: Last Vital Signs Temp 36.3 C 08/04/20 09:17 Pulse 92 08/04/20 09:17 Resp 17 08/04/20 09:17 BP 153/90 H 08/04/20 09:17 Pulse Ox 97 08/04/20 09:17 Weight - Most Recent: 130.907 kg I&O - Last 24 Hours: Intake & Output 08/03/20 08/04/20 08/04/20 22:59 06:59 14:59 Intake Total 800 2680 Output Total 850 3100 Balance -50 -420 Lab Results Last 24 Hours: Laboratory Results - last 24 hr 08/04/20 Range/Units 05:30 Sodium 140 (140-148) mmol/L Potassium 4.0 (3.6-5.2) mmol/L Chloride 105 (100-108) mmol/L Carbon Dioxide 24 (21-32) mmol/L Anion Gap 10.7 (5.0-14.0) mmol/L BUN 45 H (7-18) mg/dL Creatinine 2.3 H (0.6-1.0) mg/dL Est Cr Clr Drug Dosing 28.63 mL/min Estimated GFR (MDRD) 23 L (>60) Glucose 115 H (74-106) mg/dL Calcium 8.9 (8.5-10.1) mg/dL Med Orders - Current: Current Medications Acetaminophen (Tylenol) 650 mg PO Q4H PRN PRN Reason: Pain (Mild 1-3)/fever Last Admin: 08/03/20 20:24 Dose: 650 mg Documented by: Albuterol (Proventil Neb Soln) 2.5 mg NEB Q4H PRN PRN Reason: Shortness Of Breath/wheezing Last Admin: 07/26/20 21:49 Dose: 2.5 mg Documented by: Albuterol (Proventil Neb Soln) 2.5 mg NEB QIDRT [facility] Last Admin: 08/04/20 07:27 Dose: 2.5 mg Documented by: Citalopram Hydrobromide (Celexa) 40 mg PO DAILY [facility] Last Admin: 08/04/20 08:43 Dose: 40 mg Documented by: Dextrose (Glutose 15) 15 gm PO ONETIME PRN PRN Reason: Hypoglycemia Dextrose/Water (Dextrose 50% In Water) 50 ml IV ONETIME PRN PRN Reason: Hypoglycemia Enoxaparin Sodium (Lovenox) 30 mg SUBCUT Q24H [facility] Last Admin: 08/03/20 16:56 Dose: 30 mg Documented by: Estradiol (Estradiol) 0.5 mg PO DAILY [facility] Last Admin: 08/04/20 08:43 Dose: 0.5 mg Documented by: Furosemide (Lasix) 20 mg IVPUSH DAILY [facility] Last Admin: 08/04/20 08:14 Dose: 20 mg Documented by: Furosemide (Lasix) 20 mg IVPUSH Q8H [facility] Stop: 08/05/20 01:01 Gabapentin (Neurontin) 400 mg PO DAILY [facility] Levofloxacin/Dextrose 750 mg/ (Premix) 150 mls @ 100 mls/hr IV Q48H [facility] Last Admin: 08/02/20 15:30 Dose: 100 mls/hr Documented by: Insulin Human Lispro (Humalog) 0 unit SUBCUT QIDACANDBED [facility]; Protocol Last Admin: 08/04/20 08:12 Dose: Not Given Documented by: Lorazepam (Ativan) 0.5 mg IVPUSH Q2H PRN PRN Reason: Anxiety Last Admin: 08/01/20 20:28 Dose: 0.5 mg Documented by: Lorazepam (Ativan) 1 mg PO TID [facility] Last Admin: 08/04/20 08:43 Dose: 1 mg Documented by: Olanzapine (Zyprexa) 15 mg PO DAILY@1500 PRN PRN Reason: * Olanzapine (Zyprexa) 15 mg PO DAILY [facility] Last Admin: 08/04/20 08:42 Dose: 15 mg Documented by: Ondansetron HCl (Zofran) 4 mg IV Q4H PRN PRN Reason: Nausea/Vomiting Last Admin: 07/26/20 22:52 Dose: 4 mg Documented by: Patient Own Medication (Ptom) 0 each PO BEDTIME [facility] Last Admin: 08/03/20 20:25 Dose: 1 each Documented by: Potassium Chloride (Klor-Con M20) 40 meq PO BID [facility] Last Admin: 08/04/20 08:44 Dose: 40 meq Documented by: Ropinirole HCl (Requip) 1 mg PO BEDTIME [facility] Last Admin: 08/03/20 20:24 Dose: 1 mg Documented by: Sodium Chloride (Saline Flush) 10 ml FLUSH ASDIRECTED PRN PRN Reason: Keep Vein Open Tizanidine HCl (Zanaflex) 2 mg PO TID PRN PRN Reason: Muscle Spasm Discontinued Medications Acetaminophen (Tylenol) 650 mg PO Q4H PRN PRN Reason: Pain (Mild 1-3)/fever Last Admin: 07/25/20 20:13 Dose: 650 mg Documented by: Acetaminophen (Tylenol) 650 mg NGTUBE Q4H PRN PRN Reason: Pain (Mild 1-3)/fever Citalopram Hydrobromide (Celexa) 40 mg PO DAILY [facility] Last Admin: 07/28/20 08:07 Dose: Not Given Documented by: Citalopram Hydrobromide (Celexa) 40 mg NGTUBE DAILY [facility] Last Admin: 08/01/20 08:19 Dose: 40 mg Documented by: Enoxaparin Sodium (Lovenox) 40 mg SUBCUT Q24H [facility] Last Admin: 07/28/20 17:06 Dose: 40 mg Documented by: Estradiol (Estradiol) 0.5 mg PO DAILY [facility] Last Admin: 07/28/20 08:07 Dose: Not Given Documented by: Estradiol (Estradiol) 0.5 mg NGTUBE DAILY [facility] Last Admin: 08/01/20 08:19 Dose: 0.5 mg Documented by: Furosemide (Lasix) 20 mg IVPUSH NOW ONE Stop: 07/29/20 10:46 Last Admin: 07/29/20 10:49 Dose: 20 mg Documented by: Furosemide (Lasix) 20 mg IVPUSH ONETIME ONE Stop: 07/30/20 09:21 Last Admin: 07/30/20 09:47 Dose: 20 mg Documented by: Furosemide (Lasix) 20 mg IVPUSH NOW ONE Stop: 08/01/20 09:26 Last Admin: 08/01/20 09:39 Dose: 20 mg Documented by: Furosemide (Lasix) 20 mg IVPUSH NOW ONE Stop: 08/02/20 08:12 Last Admin: 08/02/20 08:23 Dose: 20 mg Documented by: Furosemide (Lasix) 20 mg IVPUSH ONETIME ONE Stop: 08/02/20 16:01 Last Admin: 08/02/20 15:27 Dose: 20 mg Documented by: Furosemide (Lasix) 20 mg IVPUSH ONETIME ONE Stop: 08/03/20 18:01 Last Admin: 08/03/20 17:01 Dose: 20 mg Documented by: Gabapentin (Neurontin) 400 mg PO TID [facility] Last Admin: 07/28/20 08:08 Dose: Not Given Documented by: Gabapentin (Neurontin) 400 mg NGTUBE TID [facility] Last Admin: 08/04/20 08:43 Dose: 400 mg Documented by: Heparin Sodium (Porcine) (Heparin Sodium) Confirm Administered Dose 5,000 units .ROUTE .STK-MED ONE Stop: 07/27/20 00:57 Last Admin: 07/27/20 01:55 Dose: Not Given Documented by: Lactated Ringer's (Ringers, Lactated) 1,000 mls @ 999 mls/hr IV ASDIRECTED [facility] Azithromycin 500 mg/ Sodium (Chloride) 250 mls @ 250 mls/hr IV Q24H [facility] Last Admin: 07/23/20 11:42 Dose: 250 mls/hr Documented by: Sodium Chloride (Normal Saline) 1,000 mls @ 999 mls/hr IV ASDIRECTED [facility] Last Admin: 07/23/20 11:41 Dose: 999 mls/hr Documented by: Ceftriaxone Sodium 1 gm/ (Sodium Chloride) 50 mls @ 100 mls/hr IV ONETIME ONE Stop: 07/23/20 11:04 Last Admin: 07/23/20 11:43 Dose: 100 mls/hr Documented by: Sodium Chloride (Normal Saline) 100 mls @ 3 mls/sec IV ONETIME ONE Stop: 07/23/20 12:21 Last Admin: 07/23/20 14:00 Dose: 3 mls/sec Documented by: Lactated Ringer's (Ringers, Lactated) 1,000 mls @ 125 mls/hr IV ASDIRECTED [facility] Last Admin: 07/24/20 07:17 Dose: 125 mls/hr Documented by: Piperacillin/Tazobactam/ (Dextrose 3.375 gm/ Premix) 50 mls @ 100 mls/hr IV Q6H [facility] Last Admin: 07/29/20 04:52 Dose: 100 mls/hr Documented by: Levofloxacin/Dextrose 750 mg/ (Premix) 150 mls @ 100 mls/hr IV Q24H [facility] Last Admin: 07/27/20 16:47 Dose: 100 mls/hr Documented by: Magnesium Sulfate 2 gm/ Premix 50 mls @ 25 mls/hr IV Q6H [facility] Stop: 07/24/20 16:59 Last Admin: 07/24/20 14:44 Dose: 25 mls/hr Documented by: Lactated Ringer's (Ringers, Lactated) 1,000 mls @ 75 mls/hr IV ASDIRECTED [facility] Last Admin: 07/24/20 20:59 Dose: 75 mls/hr Documented by: Lactated Ringer's (Ringers, Lactated) 1,000 mls @ 50 mls/hr IV ASDIRECTED [facility] Last Admin: 07/27/20 08:12 Dose: 50 mls/hr Documented by: Vancomycin HCl 1.75 gm/ Sodium (Chloride) 250 mls @ 166.667 mls/hr IV Q8H [facility] Last Admin: 07/27/20 11:15 Dose: 166.667 mls/hr Documented by: Heparin Sodium (Porcine) 5,000 (units/ Sodium Chloride) 501 mls @ 0 mls/hr IV ASDIRECTED [facility] Last Admin: 07/29/20 15:26 Dose: 1 mls/hr Documented by: Propofol (Diprivan 100 Ml) Confirm Administered Dose 100 mls @ as directed .ROUTE .STK-MED ONE Stop: 07/27/20 01:18 Last Admin: 07/27/20 01:43 Dose: Not Given Documented by: Propofol (Diprivan 100 Ml) 100 mls @ 15.709 mls/hr IV TITRATE [facility]; Protocol Last Titration: 07/31/20 09:16 Dose: 0 mcg/kg/min, 0 mls/hr Documented by: Vancomycin HCl 1.5 gm/ Sodium (Chloride) 250 mls @ 166.667 mls/hr IV Q8H [facility] Last Admin: 07/28/20 03:12 Dose: 166.667 mls/hr Documented by: Sodium Chloride (Normal Saline) 90 mls @ 3 mls/sec IV ASDIRECTED [facility] Stop: 07/27/20 14:30 Last Admin: 07/27/20 15:05 Dose: 3 mls/sec Documented by: Ceftazidime 1 gm/ Sodium (Chloride) 50 mls @ 100 mls/hr IV Q24H [facility] Last Admin: 08/01/20 11:03 Dose: 100 mls/hr Documented by: Dextrose/Sodium Chloride (Dextrose 5%-Normal Saline) 1,000 mls @ 50 mls/hr IV ASDIRECTED [facility] Last Admin: 07/31/20 07:33 Dose: 50 mls/hr Documented by: Potassium Chloride/Dextrose/Sod Cl (D5 1/4 Ns With 20 Meq Kcl) 1,000 mls @ 50 mls/hr IV ASDIRECTED [facility] Last Admin: 08/01/20 05:33 Dose: 50 mls/hr Documented by: Dextrose/Water (Dextrose 5% In Water) 1,000 mls @ 125 mls/hr IV ASDIRECTED [facility] Last Admin: 08/02/20 08:20 Dose: 125 mls/hr Documented by: Potassium Chloride 20 meq/Lidocaine HCl 2 ml/ Sodium Chloride 112 mls @ 56 mls/hr IV Q2H [facility] Stop: 08/01/20 19:59 Last Admin: 08/01/20 17:55 Dose: 56 mls/hr Documented by: Ibuprofen (Motrin) 800 mg PO BID [facility] Last Admin: 07/28/20 08:07 Dose: Not Given Documented by: Ibuprofen (Motrin) 400 mg PO Q8H PRN PRN Reason: Fever Last Admin: 07/26/20 14:54 Dose: 400 mg Documented by: Iopamidol (Isovue-370 (76%)) 100 ml IV . DIRECTED [facility] Last Admin: 07/23/20 14:00 Dose: 100 ml Documented by: Iopamidol (Isovue-370 (76%)) 100 ml IV . DIRECTED [facility] Stop: 07/27/20 14:30 Last Admin: 07/27/20 15:04 Dose: 100 ml Documented by: Lorazepam (Ativan) 1 mg PO TID [facility] Last Admin: 09/20/20 08:07 Dose: Not Given Documented by: Lorazepam (Ativan) Confirm Administered Dose 2 mg .ROUTE .STK-MED ONE Stop: 07/26/20 23:52 Last Admin: 07/26/20 23:55 Dose: Not Given Documented by: Lorazepam (Ativan) 1 mg NGTUBE TID [facility] Last Admin: 07/28/20 14:59 Dose: 1 mg Documented by: Magnesium Oxide (Magnesium Oxide) 400 mg PO BID [facility] Last Admin: 07/28/20 08:07 Dose: Not Given Documented by: Magnesium Oxide (Magnesium Oxide) 400 mg NGTUBE BID [facility] Last Admin: 07/29/20 08:20 Dose: 400 mg Documented by: Scopolamine Patch (Check) 1 each TOP DAILY [facility] Stop: 07/29/20 09:01 Last Admin: 07/29/20 08:12 Dose: Not Given Documented by: Olanzapine (Zyprexa) 15 mg PO DAILY [facility] Last Admin: 07/28/20 08:08 Dose: Not Given Documented by: Olanzapine (Zyprexa) 15 mg PO DAILY@1500 PRN PRN Reason: * Last Admin: 07/25/20 08:40 Dose: 15 mg Documented by: Olanzapine (Zyprexa) 15 mg NGTUBE DAILY@1500 PRN PRN Reason: * Olanzapine (Zyprexa) 15 mg NGTUBE DAILY [facility] Last Admin: 08/01/20 08:18 Dose: 15 mg Documented by: Oxycodone HCl (Oxycodone) 5 mg PO Q4H PRN PRN Reason: Pain (moderate 4-6) Last Admin: 07/26/20 20:30 Dose: 5 mg Documented by: Oxycodone HCl (Oxycodone) 5 mg NGTUBE Q4H PRN PRN Reason: Pain (moderate 4-6) Pantoprazole Sodium (Protonix) 40 mg PO ACBREAKFAST [facility] Last Admin: 07/27/20 08:50 Dose: Not Given Documented by: Pantoprazole Sodium (Protonix Iv) 40 mg IVPUSH Q24H [facility] Last Admin: 08/01/20 13:38 Dose: 40 mg Documented by: Clozapine 200mg (Ptom) 0 each PO BEDTIME [facility] Last Admin: 07/27/20 20:17 Dose: Not Given Documented by: Clozapine 200mg (Ptom) 0 each NGTUBE BEDTIME [facility] Last Admin: 07/31/20 21:27 Dose: 1 each Documented by: Patient Own Medication (Ptom) 1 each PO BEDTIME [facility] Last Admin: 08/02/20 19:24 Dose: Not Given Documented by: Clozapine 200 Mg Tab (*Pt Own Med*) 0 each PO ONETIME ONE Stop: 08/01/20 21:01 Last Admin: 08/01/20 20:22 Dose: 1 each Documented by: Polyethylene Glycol (Miralax) 17 gm PO DAILY PRN PRN Reason: Constipation Propofol (Diprivan 20 Ml) Confirm Administered Dose 200 mg .ROUTE .STK-MED ONE Stop: 07/27/20 07:06 Ropinirole HCl (Requip) 1 mg PO BEDTIME [facility] Last Admin: 07/27/20 20:17 Dose: Not Given Documented by: Ropinirole HCl (Requip) 1 mg NGTUBE BEDTIME [facility] Last Admin: 07/31/20 21:36 Dose: 1 mg Documented by: Scopolamine (Transderm-Scop) 1.5 mg TRDERM Q72H [facility] Last Admin: 07/30/20 14:35 Dose: 1.5 mg Documented by: Sodium Chloride (Saline Flush) 10 ml FLUSH ONETIME PRN PRN Reason: PER RADIOLOGY PROTOCOL Last Admin: 07/23/20 14:00 Dose: 10 ml Documented by: Sodium Chloride (Saline Flush) 10 ml FLUSH ONETIME ONE Stop: 07/27/20 13:46 Last Admin: 07/27/20 15:06 Dose: 10 ml Documented by: Succinylcholine Chloride (Quelicin) Confirm Administered Dose 200 mg .ROUTE .STK-MED ONE Stop: 07/27/20 07:06 Tizanidine HCl (Zanaflex) 2 mg PO TID [facility] Last Admin: 07/28/20 08:08 Dose: Not Given Documented by: Tizanidine HCl (Zanaflex) 2 mg PO TID [facility] Last Admin: 08/04/20 08:43 Dose: 2 mg Documented by: - Exam Quality Assessment: Supplemental Oxygen General: Alert, Oriented, Cooperative, No Acute Distress Lungs: Normal Respiratory Effort, Crackles (mild both bases ) Cardiovascular: Regular Rate, Regular Rhythm GI/Abdominal Exam: Soft, No Distention Extremities: Pedal Edema. No: Increased Warmth Skin: Warm, Dry Psy/Mental Status: Alert, Normal Affect Sepsis Event Note - Evaluation Sepsis Screening Result: No Definite Risk - Focused Exam Vital Signs: Vital Signs Temp Pulse Resp BP Pulse Ox Pulse Ox 08/04/20 09:17 36.3 C 92 17 153/90 H 97 08/04/20 07:29 84 90 L 08/04/20 06:00 14 126/90 95 08/04/20 04:00 36.4 C 16 136/83 94 L 08/04/20 02:00 36.6 C 16 121/80 96 08/04/20 00:00 36.7 C 17 127/73 96 - Problem List Review Problem List Initiated/Reviewed/Updated: Yes - My Orders Last 24 Hours: My Active Orders 08/04/20 10:21 Transfer Patient (Change bed) [ADT] Routine Up With Assistance [RC] ASDIRECTED 08/04/20 10:22 tiZANidine [Zanaflex] 2 mg PO TID PRN 08/04/20 17:00 Furosemide [Lasix] 20 mg IVPUSH Q8H 08/05/20 02:15 [facility] Catheter Insertion [Insert Urinary Catheter] [OM.PC] Q24H 08/05/20 05:00 BASIC METABOLIC PANEL,BMP [CHEM] Timed CBC W/O DIFF,HEMOGRAM [HEME] Timed (1) 08/05/20 07:00 PT Evaluation and Treatment [CONS] Routine 08/05/20 09:00 Gabapentin [Neurontin] 400 mg PO DAILY - Plan Plan:: ASSESSMENT AND PLAN BILATERAL PNEUMONIA WITH SEPSIS-cultures have been negative. Steady clinical improvement but still requiring supplemental oxygen. -Continue levofloxacin -Saline lock IV HYPOXIC AND HYPERCAPNIC RESPIRATORY FAILURE-secondary to bilateral pneumonia and probable component of ARDS. Extubated 08/01 and doing well since extubation. Still volume overloaded and hypoxic but otherwise doing well. -Furosemide 20 mg IV x3 doses today and reassess in the morning -Supplement oxygen as needed -Scheduled and as needed nebulizers HYPERNATREMIA-resolved. -Saline lock IV -Recheck labs in the morning ACUTE KIDNEY INJURY-urine output has been good and creatinine level has slowly improved but has not returned to normal. 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 -Continue home medications TYPE 2 DIABETES MELLITUS-sugars stable. -Hold metformin until kidney function improves -4 times daily glucometers -Low-dose sliding scale Humalog MAINTENANCE ISSUES -DVT prophylaxis; Lovenox 40 mg subcu daily -GI prophylaxis; PPI -Welch catheter; still necessary for a strict intake and output with a critical patient and steady diuresis, will reassess tomorrow -Nutrition; regular diet DISPOSITION-anticipate discharge to subacute rehab after the hospital stay. Helio Lima MD
[2020-08-04] MEDS: tiZANidine 2 MG Tab PO PRN (14:23)
[2020-08-04] MEDS: Levofloxacin/Dextrose 5%-Water 750 MG in Premix Bag 1 BAG IV SCH (16:55)
[2020-08-04] MEDS: Enoxaparin 30 MG/0.3 ML Syringe SUBCUT SCH (17:16)
[2020-08-04] MEDS: Acetaminophen Soln 650 MG/20.3 ML UD Cup PO PRN (17:38)
[2020-08-04] MEDS: Patient's Own Medication 1 Each PO SCH (20:00)
[2020-08-04] MEDS: rOPINIRole 1 MG Tab PO SCH (20:00)
[2020-08-05] MEDS: Furosemide 20 MG/2 ML VIAL IVPUSH SCH ×2 (00:04→09:53)
[2020-08-05] MEDS: Albuterol 0.083% 2.5 MG/3 ML Neb Soln NEB SCH ×4 (07:00→20:22)
[2020-08-05] MEDS: Insulin Lispro 100 Unit/ML 3 ML KwikPen SUBCUT SCH ×4 (07:14→20:14)
[2020-08-05] MEDS: LORazepam 1 MG Tab PO SCH ×3 (09:45→20:57)
[2020-08-05] MEDS: Acetaminophen Soln 650 MG/20.3 ML UD Cup PO PRN ×2 (09:45→17:12)
[2020-08-05] MEDS: Citalopram 20 MG Tab PO SCH (09:46)
[2020-08-05] MEDS: Estradiol 0.5 MG Tab PO SCH (09:47)
[2020-08-05] MEDS: Potassium Chloride 20 MEQ Tab.ER PO SCH ×2 (09:47→20:15)
[2020-08-05] MEDS: OLANZapine 5 MG Tab PO SCH (09:48)
[2020-08-05] MEDS: Gabapentin 400 MG Cap PO SCH (09:48)
[2020-08-05] MEDS: tiZANidine 2 MG Tab PO PRN ×3 (10:00→20:17)
--- NOTE | 2020-08-05 12:39 | PCM.PN ---
- General Info Date of Service: 08/05/20 Subjective Update: Ms. Shane improved significantly over the past week. She is now off of the ventilator and requiring only relatively small amount of supplemental oxygen. Overall strength seems to be slowly improving as is her appetite. Renal function has improved, but is not yet back to baseline. Excellent diuresis thus far, she continues to have residual peripheral edema. Functional Status: Reports: Tolerating Diet, Ambulating - Review of Systems General: Reports: Weakness, Fatigue. Denies: Fever, Chills Pulmonary: Reports: Shortness of Breath. Denies: Pleuritic Chest Pain, Cough, Sputum, Hemoptysis, Wheezing Cardiovascular: Reports: Dyspnea on Exertion, Edema. Denies: Chest Pain, Palpitations, Orthopnea, PND, Lightheadedness Gastrointestinal: Reports: No Symptoms Genitourinary: Reports: No Symptoms - Patient Data Vitals - Most Recent: Last Vital Signs Temp 97.8 F 08/05/20 09:20 Pulse 88 08/05/20 11:42 Resp 16 08/05/20 09:20 BP 144/75 H 08/05/20 09:20 Pulse Ox 91 L 08/05/20 09:20 Weight - Most Recent: 262 lb I&O - Last 24 Hours: Intake & Output 08/04/20 08/05/20 08/05/20 22:59 06:59 14:59 Intake Total 1150 1000 Output Total 3100 3975 Balance -1950 -2975 Lab Results Last 24 Hours: Laboratory Results - last 24 hr 08/05/20 08/05/20 Range/Units 04:00 04:00 WBC 12.1 H (4.5-11.0) K/uL RBC 3.46 (3.30-5.50) M/uL Hgb 10.1 L (12.0-15.0) g/dL Hct 32.1 L (36.0-48.0) % MCV 93 (80-98) fL MCH 29 (27-31) pg MCHC 32 (32-36) % Plt Count 499 H (150-400) K/uL Sodium 140 (140-148) mmol/L Potassium 4.1 (3.6-5.2) mmol/L Chloride 101 (100-108) mmol/L Carbon Dioxide 26 (21-32) mmol/L Anion Gap 12.8 (5.0-14.0) mmol/L BUN 41 H (7-18) mg/dL Creatinine 2.3 H (0.6-1.0) mg/dL Est Cr Clr Drug Dosing 28.63 mL/min Estimated GFR (MDRD) 23 L (>60) Glucose 132 H (74-106) mg/dL Calcium 8.9 (8.5-10.1) mg/dL Med Orders - Current: Current Medications Acetaminophen (Tylenol) 650 mg PO Q4H PRN PRN Reason: Pain (Mild 1-3)/fever Last Admin: 08/05/20 09:45 Dose: 650 mg Documented by: Albuterol (Proventil Neb Soln) 2.5 mg NEB Q4H PRN PRN Reason: Shortness Of Breath/wheezing Last Admin: 07/26/20 21:49 Dose: 2.5 mg Documented by: Albuterol (Proventil Neb Soln) 2.5 mg NEB QIDRT ON LICENSE OF [facility] Last Admin: 08/05/20 11:41 Dose: 2.5 mg Documented by: Citalopram Hydrobromide (Celexa) 40 mg PO DAILY ON LICENSE OF [facility] Last Admin: 08/05/20 09:46 Dose: 40 mg Documented by: Dextrose (Glutose 15) 15 gm PO ONETIME PRN PRN Reason: Hypoglycemia Dextrose/Water (Dextrose 50% In Water) 50 ml IV ONETIME PRN PRN Reason: Hypoglycemia Enoxaparin Sodium (Lovenox) 30 mg SUBCUT Q24H ON LICENSE OF [facility] Last Admin: 08/04/20 17:16 Dose: 30 mg Documented by: Estradiol (Estradiol) 0.5 mg PO DAILY ON LICENSE OF [facility] Last Admin: 08/05/20 09:47 Dose: 0.5 mg Documented by: Furosemide (Lasix) 20 mg IVPUSH DAILY ON LICENSE OF [facility] Last Admin: 08/05/20 09:53 Dose: 20 mg Documented by: Furosemide (Lasix) 20 mg IVPUSH NOW ONE Stop: 08/05/20 18:01 Gabapentin (Neurontin) 400 mg PO DAILY ON LICENSE OF [facility] Last Admin: 08/05/20 09:48 Dose: 400 mg Documented by: Levofloxacin/Dextrose 750 mg/ (Premix) 150 mls @ 100 mls/hr IV Q48H ON LICENSE OF [facility] Last Admin: 08/04/20 16:55 Dose: 100 mls/hr Documented by: Insulin Human Lispro (Humalog) 0 unit SUBCUT QIDACANDBED ON LICENSE OF [facility]; Protocol Last Admin: 08/05/20 07:14 Dose: Not Given Documented by: Lorazepam (Ativan) 0.5 mg IVPUSH Q2H PRN PRN Reason: Anxiety Last Admin: 08/01/20 20:28 Dose: 0.5 mg Documented by: Lorazepam (Ativan) 1 mg PO TID ON LICENSE OF [facility] Last Admin: 08/05/20 09:45 Dose: 1 mg Documented by: Olanzapine (Zyprexa) 15 mg PO DAILY@1500 PRN PRN Reason: * Olanzapine (Zyprexa) 15 mg PO DAILY ON LICENSE OF [facility] Last Admin: 08/05/20 09:48 Dose: 15 mg Documented by: Ondansetron HCl (Zofran) 4 mg IV Q4H PRN PRN Reason: Nausea/Vomiting Last Admin: 07/26/20 22:52 Dose: 4 mg Documented by: Patient Own Medication (Ptom) 0 each PO BEDTIME ON LICENSE OF [facility] Last Admin: 08/04/20 20:00 Dose: 1 each Documented by: Potassium Chloride (Klor-Con M20) 40 meq PO BID ON LICENSE OF [facility] Last Admin: 08/05/20 09:47 Dose: 40 meq Documented by: Ropinirole HCl (Requip) 1 mg PO BEDTIME ON LICENSE OF [facility] Last Admin: 08/04/20 20:00 Dose: 1 mg Documented by: Sodium Chloride (Saline Flush) 10 ml FLUSH ASDIRECTED PRN PRN Reason: Keep Vein Open Tizanidine HCl (Zanaflex) 2 mg PO TID PRN PRN Reason: Muscle Spasm Last Admin: 08/05/20 10:00 Dose: 2 mg Documented by: Discontinued Medications Acetaminophen (Tylenol) 650 mg PO Q4H PRN PRN Reason: Pain (Mild 1-3)/fever Last Admin: 07/25/20 20:13 Dose: 650 mg Documented by: Acetaminophen (Tylenol) 650 mg NGTUBE Q4H PRN PRN Reason: Pain (Mild 1-3)/fever Citalopram Hydrobromide (Celexa) 40 mg PO DAILY ON LICENSE OF [facility] Last Admin: 07/28/20 08:07 Dose: Not Given Documented by: Citalopram Hydrobromide (Celexa) 40 mg NGTUBE DAILY ON LICENSE OF [facility] Last Admin: 08/01/20 08:19 Dose: 40 mg Documented by: Enoxaparin Sodium (Lovenox) 40 mg SUBCUT Q24H ON LICENSE OF [facility] Last Admin: 07/28/20 17:06 Dose: 40 mg Documented by: Estradiol (Estradiol) 0.5 mg PO DAILY ON LICENSE OF [facility] Last Admin: 07/28/20 08:07 Dose: Not Given Documented by: Estradiol (Estradiol) 0.5 mg NGTUBE DAILY ON LICENSE OF [facility] Last Admin: 08/01/20 08:19 Dose: 0.5 mg Documented by: Furosemide (Lasix) 20 mg IVPUSH NOW ONE Stop: 07/29/20 10:46 Last Admin: 07/29/20 10:49 Dose: 20 mg Documented by: Furosemide (Lasix) 20 mg IVPUSH ONETIME ONE Stop: 07/30/20 09:21 Last Admin: 07/30/20 09:47 Dose: 20 mg Documented by: Furosemide (Lasix) 20 mg IVPUSH NOW ONE Stop: 08/01/20 09:26 Last Admin: 08/01/20 09:39 Dose: 20 mg Documented by: Furosemide (Lasix) 20 mg IVPUSH NOW ONE Stop: 08/02/20 08:12 Last Admin: 08/02/20 08:23 Dose: 20 mg Documented by: Furosemide (Lasix) 20 mg IVPUSH ONETIME ONE Stop: 08/02/20 16:01 Last Admin: 08/02/20 15:27 Dose: 20 mg Documented by: Furosemide (Lasix) 20 mg IVPUSH ONETIME ONE Stop: 08/03/20 18:01 Last Admin: 08/03/20 17:01 Dose: 20 mg Documented by: Furosemide (Lasix) 20 mg IVPUSH Q8H [facility] Stop: 08/05/20 01:01 Last Admin: 08/05/20 00:04 Dose: 20 mg Documented by: Gabapentin (Neurontin) 400 mg PO TID ON LICENSE OF [facility] Last Admin: 07/28/20 08:08 Dose: Not Given Documented by: Gabapentin (Neurontin) 400 mg NGTUBE TID ON LICENSE OF [facility] Last Admin: 08/04/20 08:43 Dose: 400 mg Documented by: Heparin Sodium (Porcine) (Heparin Sodium) Confirm Administered Dose 5,000 units .ROUTE .STK-MED ONE Stop: 07/27/20 00:57 Last Admin: 07/27/20 01:55 Dose: Not Given Documented by: Lactated Ringer's (Ringers, Lactated) 1,000 mls @ 999 mls/hr IV ASDIRECTED ON LICENSE OF [facility] Azithromycin 500 mg/ Sodium (Chloride) 250 mls @ 250 mls/hr IV Q24H ON LICENSE OF [facility] Last Admin: 07/23/20 11:42 Dose: 250 mls/hr Documented by: Sodium Chloride (Normal Saline) 1,000 mls @ 999 mls/hr IV ASDIRECTED ON LICENSE OF [facility] Last Admin: 07/23/20 11:41 Dose: 999 mls/hr Documented by: Ceftriaxone Sodium 1 gm/ (Sodium Chloride) 50 mls @ 100 mls/hr IV ONETIME ONE Stop: 07/23/20 11:04 Last Admin: 07/23/20 11:43 Dose: 100 mls/hr Documented by: Sodium Chloride (Normal Saline) 100 mls @ 3 mls/sec IV ONETIME ONE Stop: 07/23/20 12:21 Last Admin: 07/23/20 14:00 Dose: 3 mls/sec Documented by: Lactated Ringer's (Ringers, Lactated) 1,000 mls @ 125 mls/hr IV ASDIRECTED ON LICENSE OF [facility] Last Admin: 07/24/20 07:17 Dose: 125 mls/hr Documented by: Piperacillin/Tazobactam/ (Dextrose 3.375 gm/ Premix) 50 mls @ 100 mls/hr IV Q6H ON LICENSE OF [facility] Last Admin: 07/29/20 04:52 Dose: 100 mls/hr Documented by: Levofloxacin/Dextrose 750 mg/ (Premix) 150 mls @ 100 mls/hr IV Q24H ON LICENSE OF [facility] Last Admin: 07/27/20 16:47 Dose: 100 mls/hr Documented by: Magnesium Sulfate 2 gm/ Premix 50 mls @ 25 mls/hr IV Q6H ON LICENSE OF [facility] Stop: 07/24/20 16:59 Last Admin: 07/24/20 14:44 Dose: 25 mls/hr Documented by: Lactated Ringer's (Ringers, Lactated) 1,000 mls @ 75 mls/hr IV ASDIRECTED ON LICENSE OF [facility] Last Admin: 07/24/20 20:59 Dose: 75 mls/hr Documented by: Lactated Ringer's (Ringers, Lactated) 1,000 mls @ 50 mls/hr IV ASDIRECTED ON LICENSE OF [facility] Last Admin: 07/27/20 08:12 Dose: 50 mls/hr Documented by: Vancomycin HCl 1.75 gm/ Sodium (Chloride) 250 mls @ 166.667 mls/hr IV Q8H ON LICENSE OF [facility] Last Admin: 07/27/20 11:15 Dose: 166.667 mls/hr Documented by: Heparin Sodium (Porcine) 5,000 (units/ Sodium Chloride) 501 mls @ 0 mls/hr IV ASDIRECTED ON LICENSE OF [facility] Last Admin: 07/29/20 15:26 Dose: 1 mls/hr Documented by: Propofol (Diprivan 100 Ml) Confirm Administered Dose 100 mls @ as directed .ROUTE .STK-MED ONE Stop: 07/27/20 01:18 Last Admin: 07/27/20 01:43 Dose: Not Given Documented by: Propofol (Diprivan 100 Ml) 100 mls @ 15.709 mls/hr IV TITRATE [facility]; Protocol Last Titration: 07/31/20 09:16 Dose: 0 mcg/kg/min, 0 mls/hr Documented by: Vancomycin HCl 1.5 gm/ Sodium (Chloride) 250 mls @ 166.667 mls/hr IV Q8H ON LICENSE OF [facility] Last Admin: 07/28/20 03:12 Dose: 166.667 mls/hr Documented by: Sodium Chloride (Normal Saline) 90 mls @ 3 mls/sec IV ASDIRECTED ON LICENSE OF [facility] Stop: 07/27/20 14:30 Last Admin: 07/27/20 15:05 Dose: 3 mls/sec Documented by: Ceftazidime 1 gm/ Sodium (Chloride) 50 mls @ 100 mls/hr IV Q24H ON LICENSE OF [facility] Last Admin: 08/01/20 11:03 Dose: 100 mls/hr Documented by: Dextrose/Sodium Chloride (Dextrose 5%-Normal Saline) 1,000 mls @ 50 mls/hr IV ASDIRECTED ON LICENSE OF [facility] Last Admin: 07/31/20 07:33 Dose: 50 mls/hr Documented by: Potassium Chloride/Dextrose/Sod Cl (D5 1/4 Ns With 20 Meq Kcl) 1,000 mls @ 50 mls/hr IV ASDIRECTED ON LICENSE OF [facility] Last Admin: 08/01/20 05:33 Dose: 50 mls/hr Documented by: Dextrose/Water (Dextrose 5% In Water) 1,000 mls @ 125 mls/hr IV ASDIRECTED ON LICENSE OF [facility] Last Admin: 08/02/20 08:20 Dose: 125 mls/hr Documented by: Potassium Chloride 20 meq/Lidocaine HCl 2 ml/ Sodium Chloride 112 mls @ 56 mls/hr IV Q2H ON LICENSE OF [facility] Stop: 08/01/20 19:59 Last Admin: 08/01/20 17:55 Dose: 56 mls/hr Documented by: Ibuprofen (Motrin) 800 mg PO BID ON LICENSE OF [facility] Last Admin: 07/28/20 08:07 Dose: Not Given Documented by: Ibuprofen (Motrin) 400 mg PO Q8H PRN PRN Reason: Fever Last Admin: 07/26/20 14:54 Dose: 400 mg Documented by: Iopamidol (Isovue-370 (76%)) 100 ml IV . DIRECTED ON LICENSE OF [facility] Last Admin: 07/23/20 14:00 Dose: 100 ml Documented by: Iopamidol (Isovue-370 (76%)) 100 ml IV . DIRECTED ON LICENSE OF [facility] Stop: 07/27/20 14:30 Last Admin: 07/27/20 15:04 Dose: 100 ml Documented by: Lorazepam (Ativan) 1 mg PO TID ON LICENSE OF [facility] Last Admin: 07/28/20 08:07 Dose: Not Given Documented by: Lorazepam (Ativan) Confirm Administered Dose 2 mg .ROUTE .[facility]-MED ONE Stop: 07/26/20 23:52 Last Admin: 07/26/20 23:55 Dose: Not Given Documented by: Lorazepam (Ativan) 1 mg NGTUBE TID ON LICENSE OF [facility] Last Admin: 07/28/20 14:59 Dose: 1 mg Documented by: Magnesium Oxide (Magnesium Oxide) 400 mg PO BID ON LICENSE OF [facility] Last Admin: 07/28/20 08:07 Dose: Not Given Documented by: Magnesium Oxide (Magnesium Oxide) 400 mg NGTUBE BID ON LICENSE OF [facility] Last Admin: 07/29/20 08:20 Dose: 400 mg Documented by: Scopolamine Patch (Check) 1 each TOP DAILY ON LICENSE OF [facility] Stop: 07/29/20 09:01 Last Admin: 07/29/20 08:12 Dose: Not Given Documented by: Olanzapine (Zyprexa) 15 mg PO DAILY ON LICENSE OF [facility] Last Admin: 07/28/20 08:08 Dose: Not Given Documented by: Olanzapine (Zyprexa) 15 mg PO DAILY@1500 PRN PRN Reason: * Last Admin: 07/25/20 08:40 Dose: 15 mg Documented by: Olanzapine (Zyprexa) 15 mg NGTUBE DAILY@1500 PRN PRN Reason: * Olanzapine (Zyprexa) 15 mg NGTUBE DAILY ON LICENSE OF [facility] Last Admin: 08/01/20 08:18 Dose: 15 mg Documented by: Oxycodone HCl (Oxycodone) 5 mg PO Q4H PRN PRN Reason: Pain (moderate 4-6) Last Admin: 07/26/20 20:30 Dose: 5 mg Documented by: Oxycodone HCl (Oxycodone) 5 mg NGTUBE Q4H PRN PRN Reason: Pain (moderate 4-6) Pantoprazole Sodium (Protonix) 40 mg PO ACBREAKFAST ON LICENSE OF [facility] Last Admin: 07/27/20 08:50 Dose: Not Given Documented by: Pantoprazole Sodium (Protonix Iv) 40 mg IVPUSH Q24H ON LICENSE OF [facility] Last Admin: 08/01/20 13:38 Dose: 40 mg Documented by: Clozapine 200mg (Ptom) 0 each PO BEDTIME ON LICENSE OF [facility] Last Admin: 07/27/20 20:17 Dose: Not Given Documented by: Clozapine 200mg (Ptom) 0 each NGTUBE BEDTIME ON LICENSE OF [facility] Last Admin: 07/31/20 21:27 Dose: 1 each Documented by: Patient Own Medication (Ptom) 1 each PO BEDTIME ON LICENSE OF [facility] Last Admin: 08/02/20 19:24 Dose: Not Given Documented by: Clozapine 200 Mg Tab (*Pt Own Med*) 0 each PO ONETIME ONE Stop: 08/01/20 21:01 Last Admin: 08/01/20 20:22 Dose: 1 each Documented by: Polyethylene Glycol (Miralax) 17 gm PO DAILY PRN PRN Reason: Constipation Propofol (Diprivan 20 Ml) Confirm Administered Dose 200 mg .ROUTE .STK-MED ONE Stop: 07/27/20 07:06 Ropinirole HCl (Requip) 1 mg PO BEDTIME ON LICENSE OF [facility] Last Admin: 07/27/20 20:17 Dose: Not Given Documented by: Ropinirole HCl (Requip) 1 mg NGTUBE BEDTIME ON LICENSE OF [facility] Last Admin: 07/31/20 21:36 Dose: 1 mg Documented by: Scopolamine (Transderm-Scop) 1.5 mg TRDERM Q72H [facility] Last Admin: 07/30/20 14:35 Dose: 1.5 mg Documented by: Sodium Chloride (Saline Flush) 10 ml FLUSH ONETIME PRN PRN Reason: PER RADIOLOGY PROTOCOL Last Admin: 07/23/20 14:00 Dose: 10 ml Documented by: Sodium Chloride (Saline Flush) 10 ml FLUSH ONETIME ONE Stop: 07/27/20 13:46 Last Admin: 07/27/20 15:06 Dose: 10 ml Documented by: Succinylcholine Chloride (Quelicin) Confirm Administered Dose 200 mg .ROUTE .STK-MED ONE Stop: 07/27/20 07:06 Tizanidine HCl (Zanaflex) 2 mg PO TID ON LICENSE OF [facility] Last Admin: 07/28/20 08:08 Dose: Not Given Documented by: Tizanidine HCl (Zanaflex) 2 mg PO TID ON LICENSE OF [facility] Last Admin: 08/04/20 08:43 Dose: 2 mg Documented by: - Exam Quality Assessment: Supplemental Oxygen, Urine Catheter, DVT Prophylaxis General: Alert, Oriented, Cooperative, Mild Distress Lungs: Clear to Auscultation, Normal Respiratory Effort, Decreased Breath Sounds Cardiovascular: Regular Rate, Regular Rhythm, No Murmurs GI/Abdominal Exam: Soft, Non-Tender, No Organomegaly, No Distention Extremities: Non-Tender, Pedal Edema Sepsis Event Note - Evaluation Sepsis Screening Result: No Definite Risk - Focused Exam Vital Signs: Vital Signs Temp Pulse Resp BP Pulse Ox 08/05/20 11:42 88 08/05/20 09:20 97.8 F 91 16 144/75 H 91 L 08/05/20 07:00 78 08/05/20 03:00 98.5 F 19 132/76 94 L - Problem List Review Problem List Initiated/Reviewed/Updated: Yes - My Orders Last 24 Hours: My Active Orders 08/05/20 12:29 Remove Welch Catheter [Urinary Catheter Removal] [RC] Per Unit Routine 08/05/20 18:00 Furosemide [Lasix] 20 mg IVPUSH NOW ONE 08/06/20 05:00 BASIC METABOLIC PANEL,BMP [CHEM] Timed CBC WITH AUTO DIFF [HEME] Timed - Plan Plan:: ASSESSMENT AND PLAN BILATERAL PNEUMONIA WITH SEPSIS-cultures have been negative. Steady clinical improvement but still requiring supplemental oxygen. -Continue levofloxacin -Saline lock IV HYPOXIC AND HYPERCAPNIC RESPIRATORY FAILURE-secondary to bilateral pneumonia and probable component of ARDS. Extubated 08/01 and doing well since extubation. Still volume overloaded and hypoxic but otherwise doing well. -Furosemide 20 mg IV x2 doses today and reassess in the morning -Supplement oxygen as needed -Scheduled and as needed nebulizers HYPERNATREMIA-resolved. -Saline lock IV -Recheck labs in the morning ACUTE KIDNEY INJURY-urine output has been good and creatinine level has slowly improved but has not returned to normal. 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 -Continue home medications TYPE 2 DIABETES MELLITUS-sugars stable. -Hold metformin until kidney function improves -4 times daily glucometers -Low-dose sliding scale Humalog MAINTENANCE ISSUES -DVT prophylaxis; Lovenox 40 mg subcu daily -GI prophylaxis; PPI -Welch catheter; still necessary for a strict intake and output with a critical patient and steady diuresis, will reassess tomorrow -Nutrition; regular diet DISPOSITION-anticipate discharge to subacute rehab after the hospital stay.
[2020-08-05] MEDS: Enoxaparin 30 MG/0.3 ML Syringe SUBCUT SCH (16:41)
[2020-08-05] MEDS ORDERED: Furosemide 20 MG/2 ML VIAL IVPUSH ONE (18:00)
[2020-08-05] MEDS: Patient's Own Medication 1 Each PO SCH (20:15)
[2020-08-05] MEDS: rOPINIRole 1 MG Tab PO SCH (20:16)
[2020-08-06] MEDS: Acetaminophen Soln 650 MG/20.3 ML UD Cup PO PRN ×2 (04:39→08:30)
[2020-08-06] MEDS: Albuterol 0.083% 2.5 MG/3 ML Neb Soln NEB SCH ×4 (07:20→20:45)
[2020-08-06] MEDS: Insulin Lispro 100 Unit/ML 3 ML KwikPen SUBCUT SCH ×4 (08:03→22:41)
[2020-08-06] MEDS: LORazepam 1 MG Tab PO SCH ×3 (08:18→20:44)
[2020-08-06] MEDS: tiZANidine 2 MG Tab PO PRN ×3 (08:18→20:44)
[2020-08-06] MEDS: OLANZapine 5 MG Tab PO SCH (08:18)
[2020-08-06] MEDS: Gabapentin 400 MG Cap PO SCH (08:18)
[2020-08-06] MEDS: Potassium Chloride 20 MEQ Tab.ER PO SCH ×2 (08:19→20:44)
[2020-08-06] MEDS: Citalopram 20 MG Tab PO SCH (08:19)
[2020-08-06] MEDS: Estradiol 0.5 MG Tab PO SCH (08:19)
[2020-08-06] MEDS: Furosemide 20 MG/2 ML VIAL IVPUSH SCH (08:23)
[2020-08-06] MEDS: Sodium Chloride 0.9% 10 ML Syringe FLUSH PRN ×2 (08:24→17:07)
[2020-08-06] MEDS: Acetaminophen 325 MG Tab PO PRN ×2 (13:52→19:26)
[2020-08-06] MEDS: traMADol 50 MG Tab PO PRN ×2 (14:48→20:44)
--- NOTE | 2020-08-06 14:53 | PCM.PN ---
- General Info Date of Service: 08/06/20 Subjective Update: Ms. Shane has been stable since yesterday, afebrile with good vital signs. Overall strength is improving and she is now able to walk and transfer independently. Continues to require low level of supplemental oxygen. Appetite does seem to be slowly improving. Functional Status: Reports: Tolerating Diet, Ambulating, Urinating - Review of Systems General: Reports: Weakness, Fatigue. Denies: Fever, Chills Pulmonary: Reports: Shortness of Breath. Denies: Pleuritic Chest Pain, Cough, Sputum, Hemoptysis, Wheezing Cardiovascular: Reports: Dyspnea on Exertion, Edema. Denies: Chest Pain, Palpitations, Orthopnea, PND, Lightheadedness Gastrointestinal: Reports: No Symptoms - Patient Data Vitals - Most Recent: Last Vital Signs Temp 98.3 F 08/06/20 11:03 Pulse 87 08/06/20 14:40 Resp 16 08/06/20 11:03 BP 119/83 08/06/20 11:03 Pulse Ox 94 L 08/06/20 14:40 Weight - Most Recent: 263 lb 8 oz I&O - Last 24 Hours: Intake & Output 08/05/20 08/06/20 08/06/20 22:59 06:59 14:59 Intake Total 1150 530 Output Total 4800 1400 2600 Balance -3650 -1400 -8300 Lab Results Last 24 Hours: Laboratory Results - last 24 hr 08/06/20 08/06/20 Range/Units 05:49 05:49 WBC 11.9 H (4.5-11.0) K/uL RBC 3.35 (3.30-5.50) M/uL Hgb 10.1 L (12.0-15.0) g/dL Hct 31.3 L (36.0-48.0) % MCV 93 (80-98) fL MCH 30 (27-31) pg MCHC 32 (32-36) % Plt Count 521 H (150-400) K/uL Neut % (Auto) 73 H (36-66) % Lymph % (Auto) 12 L (24-44) % [place] % (Auto) 12 H (2-6) % Eos % (Auto) 2 (2-4) % Baso % (Auto) 0 (0-1) % Sodium 137 L (140-148) mmol/L Potassium 4.2 (3.6-5.2) mmol/L Chloride 100 (100-108) mmol/L Carbon Dioxide 26 (21-32) mmol/L Anion Gap 15.2 H (5.0-14.0) mmol/L BUN 37 H (7-18) mg/dL Creatinine 2.1 H (0.6-1.0) mg/dL Est Cr Clr Drug Dosing 31.35 mL/min Estimated GFR (MDRD) 26 L (>60) Glucose 150 H (74-106) mg/dL Calcium 9.1 (8.5-10.1) mg/dL Med Orders - Current: Current Medications Acetaminophen (Tylenol) 650 mg PO Q4H PRN PRN Reason: temp greater than 100.5 Last Admin: 08/06/20 13:52 Dose: 650 mg Documented by: Albuterol (Proventil Neb Soln) 2.5 mg NEB Q4H PRN PRN Reason: Shortness Of Breath/wheezing Last Admin: 07/26/20 21:49 Dose: 2.5 mg Documented by: Albuterol (Proventil Neb Soln) 2.5 mg NEB QIDRT [facility] Last Admin: 08/06/20 14:40 Dose: 2.5 mg Documented by: Citalopram Hydrobromide (Celexa) 40 mg PO DAILY [facility] Last Admin: 08/06/20 08:19 Dose: 40 mg Documented by: Dextrose (Glutose 15) 15 gm PO ONETIME PRN PRN Reason: Hypoglycemia Dextrose/Water (Dextrose 50% In Water) 50 ml IV ONETIME PRN PRN Reason: Hypoglycemia Enoxaparin Sodium (Lovenox) 40 mg SUBCUT Q24H [facility] Estradiol (Estradiol) 0.5 mg PO DAILY [facility] Last Admin: 08/06/20 08:19 Dose: 0.5 mg Documented by: Furosemide (Lasix) 20 mg IVPUSH DAILY [facility] Last Admin: 08/06/20 08:23 Dose: 20 mg Documented by: Furosemide (Lasix) 20 mg IVPUSH NOW ONE Stop: 08/06/20 18:01 Gabapentin (Neurontin) 400 mg PO DAILY [facility] Last Admin: 08/06/20 08:18 Dose: 400 mg Documented by: Levofloxacin/Dextrose 750 mg/ (Premix) 150 mls @ 100 mls/hr IV Q48H [facility] Last Admin: 08/04/20 16:55 Dose: 100 mls/hr Documented by: Insulin Human Lispro (Humalog) 0 unit SUBCUT QIDACANDBED [facility]; Protocol Last Admin: 08/06/20 11:10 Dose: Not Given Documented by: Lorazepam (Ativan) 0.5 mg IVPUSH Q2H PRN PRN Reason: Anxiety Last Admin: 08/01/20 20:28 Dose: 0.5 mg Documented by: Lorazepam (Ativan) 1 mg PO TID [facility] Last Admin: 08/06/20 13:54 Dose: 1 mg Documented by: Olanzapine (Zyprexa) 15 mg PO DAILY@1500 PRN PRN Reason: * Olanzapine (Zyprexa) 15 mg PO DAILY [facility] Last Admin: 08/06/20 08:18 Dose: 15 mg Documented by: Ondansetron HCl (Zofran) 4 mg IV Q4H PRN PRN Reason: Nausea/Vomiting Last Admin: 07/26/20 22:52 Dose: 4 mg Documented by: Patient Own Medication (Ptom) 0 each PO BEDTIME [facility] Last Admin: 08/05/20 20:15 Dose: 1 each Documented by: Potassium Chloride (Klor-Con M20) 40 meq PO BID [facility] Last Admin: 08/06/20 08:19 Dose: 40 meq Documented by: Ropinirole HCl (Requip) 1 mg PO BEDTIME [facility] Last Admin: 08/05/20 20:16 Dose: 1 mg Documented by: Sodium Chloride (Saline Flush) 10 ml FLUSH ASDIRECTED PRN PRN Reason: Keep Vein Open Last Admin: 08/06/20 08:24 Dose: 10 ml Documented by: Tizanidine HCl (Zanaflex) 2 mg PO TID PRN PRN Reason: Muscle Spasm Last Admin: 08/06/20 14:04 Dose: 2 mg Documented by: Tramadol HCl (Ultram) 50 mg PO Q6H PRN PRN Reason: Pain Last Admin: 08/06/20 14:48 Dose: 50 mg Documented by: Discontinued Medications Acetaminophen (Tylenol) 650 mg PO Q4H PRN PRN Reason: Pain (Mild 1-3)/fever Last Admin: 07/25/20 20:13 Dose: 650 mg Documented by: Acetaminophen (Tylenol) 650 mg NGTUBE Q4H PRN PRN Reason: Pain (Mild 1-3)/fever Acetaminophen (Tylenol) 650 mg PO Q4H PRN PRN Reason: Pain (Mild 1-3)/fever Last Admin: 08/06/20 08:30 Dose: 650 mg Documented by: Citalopram Hydrobromide (Celexa) 40 mg PO DAILY [facility] Last Admin: 07/28/20 08:07 Dose: Not Given Documented by: Citalopram Hydrobromide (Celexa) 40 mg NGTUBE DAILY [facility] Last Admin: 08/01/20 08:19 Dose: 40 mg Documented by: Enoxaparin Sodium (Lovenox) 40 mg SUBCUT Q24H [facility] Last Admin: 07/28/20 17:06 Dose: 40 mg Documented by: Enoxaparin Sodium (Lovenox) 30 mg SUBCUT Q24H [facility] Last Admin: 08/05/20 16:41 Dose: 30 mg Documented by: Estradiol (Estradiol) 0.5 mg PO DAILY [facility] Last Admin: 07/28/20 08:07 Dose: Not Given Documented by: Estradiol (Estradiol) 0.5 mg NGTUBE DAILY [facility] Last Admin: 08/01/20 08:19 Dose: 0.5 mg Documented by: Furosemide (Lasix) 20 mg IVPUSH NOW ONE Stop: 07/29/20 10:46 Last Admin: 07/29/20 10:49 Dose: 20 mg Documented by: Furosemide (Lasix) 20 mg IVPUSH ONETIME ONE Stop: 07/30/20 09:21 Last Admin: 07/30/20 09:47 Dose: 20 mg Documented by: Furosemide (Lasix) 20 mg IVPUSH NOW ONE Stop: 08/01/20 09:26 Last Admin: 08/01/20 09:39 Dose: 20 mg Documented by: Furosemide (Lasix) 20 mg IVPUSH NOW ONE Stop: 08/02/20 08:12 Last Admin: 08/02/20 08:23 Dose: 20 mg Documented by: Furosemide (Lasix) 20 mg IVPUSH ONETIME ONE Stop: 08/02/20 16:01 Last Admin: 08/02/20 15:27 Dose: 20 mg Documented by: Furosemide (Lasix) 20 mg IVPUSH ONETIME ONE Stop: 08/03/20 18:01 Last Admin: 08/03/20 17:01 Dose: 20 mg Documented by: Furosemide (Lasix) 20 mg IVPUSH Q8H [facility] Stop: 08/05/20 01:01 Last Admin: 08/05/20 00:04 Dose: 20 mg Documented by: Furosemide (Lasix) 20 mg IVPUSH ONETIME ONE Stop: 08/05/20 18:01 Last Admin: 08/05/20 18:14 Dose: 20 mg Documented by: Gabapentin (Neurontin) 400 mg PO TID [facility] Last Admin: 07/28/20 08:08 Dose: Not Given Documented by: Gabapentin (Neurontin) 400 mg NGTUBE TID [facility] Last Admin: 08/04/20 08:43 Dose: 400 mg Documented by: Heparin Sodium (Porcine) (Heparin Sodium) Confirm Administered Dose 5,000 units .ROUTE .STK-MED ONE Stop: 07/27/20 00:57 Last Admin: 07/27/20 01:55 Dose: Not Given Documented by: Lactated Ringer's (Ringers, Lactated) 1,000 mls @ 999 mls/hr IV ASDIRECTED [facility] Azithromycin 500 mg/ Sodium (Chloride) 250 mls @ 250 mls/hr IV Q24H [facility] Last Admin: 07/23/20 11:42 Dose: 250 mls/hr Documented by: Sodium Chloride (Normal Saline) 1,000 mls @ 999 mls/hr IV ASDIRECTED [facility] Last Admin: 07/23/20 11:41 Dose: 999 mls/hr Documented by: Ceftriaxone Sodium 1 gm/ (Sodium Chloride) 50 mls @ 100 mls/hr IV ONETIME ONE Stop: 07/23/20 11:04 Last Admin: 07/23/20 11:43 Dose: 100 mls/hr Documented by: Sodium Chloride (Normal Saline) 100 mls @ 3 mls/sec IV ONETIME ONE Stop: 07/23/20 12:21 Last Admin: 07/23/20 14:00 Dose: 3 mls/sec Documented by: Lactated Ringer's (Ringers, Lactated) 1,000 mls @ 125 mls/hr IV ASDIRECTED [facility] Last Admin: 07/24/20 07:17 Dose: 125 mls/hr Documented by: Piperacillin/Tazobactam/ (Dextrose 3.375 gm/ Premix) 50 mls @ 100 mls/hr IV Q6H [facility] Last Admin: 07/29/20 04:52 Dose: 100 mls/hr Documented by: Levofloxacin/Dextrose 750 mg/ (Premix) 150 mls @ 100 mls/hr IV Q24H [facility] Last Admin: 07/27/20 16:47 Dose: 100 mls/hr Documented by: Magnesium Sulfate 2 gm/ Premix 50 mls @ 25 mls/hr IV Q6H [facility] Stop: 07/24/20 16:59 Last Admin: 07/24/20 14:44 Dose: 25 mls/hr Documented by: Lactated Ringer's (Ringers, Lactated) 1,000 mls @ 75 mls/hr IV ASDIRECTED [facility] Last Admin: 07/24/20 20:59 Dose: 75 mls/hr Documented by: Lactated Ringer's (Ringers, Lactated) 1,000 mls @ 50 mls/hr IV ASDIRECTED [facility] Last Admin: 07/27/20 08:12 Dose: 50 mls/hr Documented by: Vancomycin HCl 1.75 gm/ Sodium (Chloride) 250 mls @ 166.667 mls/hr IV Q8H [facility] Last Admin: 07/27/20 11:15 Dose: 166.667 mls/hr Documented by: Heparin Sodium (Porcine) 5,000 (units/ Sodium Chloride) 501 mls @ 0 mls/hr IV ASDIRECTED [facility] Last Admin: 07/29/20 15:26 Dose: 1 mls/hr Documented by: Propofol (Diprivan 100 Ml) Confirm Administered Dose 100 mls @ as directed .ROUTE .K-MED ONE Stop: 07/27/20 01:18 Last Admin: 07/27/20 01:43 Dose: Not Given Documented by: Propofol (Diprivan 100 Ml) 100 mls @ 15.709 mls/hr IV TITRATE [facility]; Protocol Last Titration: 07/31/20 09:16 Dose: 0 mcg/kg/min, 0 mls/hr Documented by: Vancomycin HCl 1.5 gm/ Sodium (Chloride) 250 mls @ 166.667 mls/hr IV Q8H [facility] Last Admin: 07/28/20 03:12 Dose: 166.667 mls/hr Documented by: Sodium Chloride (Normal Saline) 90 mls @ 3 mls/sec IV ASDIRECTED [facility] Stop: 07/27/20 14:30 Last Admin: 07/27/20 15:05 Dose: 3 mls/sec Documented by: Ceftazidime 1 gm/ Sodium (Chloride) 50 mls @ 100 mls/hr IV Q24H [facility] Last Admin: 08/01/20 11:03 Dose: 100 mls/hr Documented by: Dextrose/Sodium Chloride (Dextrose 5%-Normal Saline) 1,000 mls @ 50 mls/hr IV ASDIRECTED [facility] Last Admin: 07/31/20 07:33 Dose: 50 mls/hr Documented by: Potassium Chloride/Dextrose/Sod Cl (D5 1/4 Ns With 20 Meq Kcl) 1,000 mls @ 50 mls/hr IV ASDIRECTED [facility] Last Admin: 08/01/20 05:33 Dose: 50 mls/hr Documented by: Dextrose/Water (Dextrose 5% In Water) 1,000 mls @ 125 mls/hr IV ASDIRECTED [facility] Last Admin: 08/02/20 08:20 Dose: 125 mls/hr Documented by: Potassium Chloride 20 meq/Lidocaine HCl 2 ml/ Sodium Chloride 112 mls @ 56 mls/hr IV Q2H [facility] Stop: 08/01/20 19:59 Last Admin: 08/01/20 17:55 Dose: 56 mls/hr Documented by: Ibuprofen (Motrin) 800 mg PO BID [facility] Last Admin: 07/28/20 08:07 Dose: Not Given Documented by: Ibuprofen (Motrin) 400 mg PO Q8H PRN PRN Reason: Fever Last Admin: 07/26/20 14:54 Dose: 400 mg Documented by: Iopamidol (Isovue-370 (76%)) 100 ml IV . DIRECTED [facility] Last Admin: 07/23/20 14:00 Dose: 100 ml Documented by: Iopamidol (Isovue-370 (76%)) 100 ml IV . DIRECTED [facility] Stop: 07/27/20 14:30 Last Admin: 07/27/20 15:04 Dose: 100 ml Documented by: Lorazepam (Ativan) 1 mg PO TID [facility] Last Admin: 07/28/20 08:07 Dose: Not Given Documented by: Lorazepam (Ativan) Confirm Administered Dose 2 mg .ROUTE .[facility] ONE Stop: 07/26/20 23:52 Last Admin: 07/26/20 23:55 Dose: Not Given Documented by: Lorazepam (Ativan) 1 mg NGTUBE TID [facility] Last Admin: 07/28/20 14:59 Dose: 1 mg Documented by: Magnesium Oxide (Magnesium Oxide) 400 mg PO BID [facility] Last Admin: 07/28/20 08:07 Dose: Not Given Documented by: Magnesium Oxide (Magnesium Oxide) 400 mg NGTUBE BID [facility] Last Admin: 07/29/20 08:20 Dose: 400 mg Documented by: Scopolamine Patch (Check) 1 each TOP DAILY [facility] Stop: 07/29/20 09:01 Last Admin: 07/29/20 08:12 Dose: Not Given Documented by: Olanzapine (Zyprexa) 15 mg PO DAILY [facility] Last Admin: 07/28/20 08:08 Dose: Not Given Documented by: Olanzapine (Zyprexa) 15 mg PO DAILY@1500 PRN PRN Reason: * Last Admin: 07/25/20 08:40 Dose: 15 mg Documented by: Olanzapine (Zyprexa) 15 mg NGTUBE DAILY@1500 PRN PRN Reason: * Olanzapine (Zyprexa) 15 mg NGTUBE DAILY [facility] Last Admin: 08/01/20 08:18 Dose: 15 mg Documented by: Oxycodone HCl (Oxycodone) 5 mg PO Q4H PRN PRN Reason: Pain (moderate 4-6) Last Admin: 07/26/20 20:30 Dose: 5 mg Documented by: Oxycodone HCl (Oxycodone) 5 mg NGTUBE Q4H PRN PRN Reason: Pain (moderate 4-6) Pantoprazole Sodium (Protonix) 40 mg PO ACBREAKFAST [facility] Last Admin: 07/27/20 08:50 Dose: Not Given Documented by: Pantoprazole Sodium (Protonix Iv) 40 mg IVPUSH Q24H [facility] Last Admin: 08/01/20 13:38 Dose: 40 mg Documented by: Clozapine 200mg (Ptom) 0 each PO BEDTIME [facility] Last Admin: 07/27/20 20:17 Dose: Not Given Documented by: Clozapine 200mg (Ptom) 0 each NGTUBE BEDTIME [facility] Last Admin: 07/31/20 21:27 Dose: 1 each Documented by: Patient Own Medication (Ptom) 1 each PO BEDTIME [facility] Last Admin: 08/02/20 19:24 Dose: Not Given Documented by: Clozapine 200 Mg Tab (*Pt Own Med*) 0 each PO ONETIME ONE Stop: 08/01/20 21:01 Last Admin: 08/01/20 20:22 Dose: 1 each Documented by: Polyethylene Glycol (Miralax) 17 gm PO DAILY PRN PRN Reason: Constipation Propofol (Diprivan 20 Ml) Confirm Administered Dose 200 mg .ROUTE .STK-MED ONE Stop: 07/27/20 07:06 Ropinirole HCl (Requip) 1 mg PO BEDTIME [facility] Last Admin: 07/27/20 20:17 Dose: Not Given Documented by: Ropinirole HCl (Requip) 1 mg NGTUBE BEDTIME [facility] Last Admin: 07/31/20 21:36 Dose: 1 mg Documented by: Scopolamine (Transderm-Scop) 1.5 mg TRDERM Q72H [facility] Last Admin: 07/30/20 14:35 Dose: 1.5 mg Documented by: Sodium Chloride (Saline Flush) 10 ml FLUSH ONETIME PRN PRN Reason: PER RADIOLOGY PROTOCOL Last Admin: 07/23/20 14:00 Dose: 10 ml Documented by: Sodium Chloride (Saline Flush) 10 ml FLUSH ONETIME ONE Stop: 07/27/20 13:46 Last Admin: 07/27/20 15:06 Dose: 10 ml Documented by: Succinylcholine Chloride (Quelicin) Confirm Administered Dose 200 mg .ROUTE .STK-MED ONE Stop: 07/27/20 07:06 Tizanidine HCl (Zanaflex) 2 mg PO TID [facility] Last Admin: 07/28/20 08:08 Dose: Not Given Documented by: Tizanidine HCl (Zanaflex) 2 mg PO TID [facility] Last Admin: 08/04/20 08:43 Dose: 2 mg Documented by: - Exam Quality Assessment: Supplemental Oxygen, DVT Prophylaxis General: Alert, Oriented, Cooperative, Mild Distress Lungs: Clear to Auscultation, Normal Respiratory Effort, Decreased Breath Sounds Cardiovascular: Regular Rate, Regular Rhythm, No Murmurs GI/Abdominal Exam: Soft, Non-Tender, No Organomegaly, No Distention Extremities: Non-Tender, Pedal Edema Sepsis Event Note - Evaluation Sepsis Screening Result: No Definite Risk - Focused Exam Vital Signs: Vital Signs Temp Pulse Resp BP Pulse Ox Pulse Ox 08/06/20 14:40 87 94 L 08/06/20 11:03 98.3 F 74 16 119/83 94 L 08/06/20 07:41 97.8 F 88 16 121/68 91 L 08/06/20 07:20 79 94 L 08/06/20 03:25 98 F 107 H 16 153/88 H 92 L - Problem List Review Problem List Initiated/Reviewed/Updated: Yes - My Orders Last 24 Hours: My Active Orders 08/06/20 12:30 Acetaminophen [TylenoL] 650 mg PO Q4H PRN 08/06/20 14:38 traMADol [Ultram] 50 mg PO Q6H PRN 08/06/20 17:00 Enoxaparin [Lovenox] 40 mg SUBCUT Q24H 08/06/20 18:00 Furosemide [Lasix] 20 mg IVPUSH NOW ONE 08/07/20 05:00 BASIC METABOLIC PANEL,BMP [CHEM] Timed CBC WITH AUTO DIFF [HEME] Timed - Plan Plan:: ASSESSMENT AND PLAN BILATERAL PNEUMONIA WITH SEPSIS-cultures have been negative. Steady clinical improvement but still requiring supplemental oxygen. -Discontinue levofloxacin -Saline lock IV HYPOXIC AND HYPERCAPNIC RESPIRATORY FAILURE-secondary to bilateral pneumonia and probable component of ARDS. Extubated 08/01 and doing well since extubation. Still volume overloaded and hypoxic but otherwise doing well. -Furosemide 20 mg p.o. daily -Supplement oxygen as needed -Scheduled and as needed nebulizers ACUTE KIDNEY INJURY-urine output has been good and creatinine level has slowly improved but has not returned to normal. 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 -Continue home medications TYPE 2 DIABETES MELLITUS-sugars stable. -Hold metformin until kidney function improves -4 times daily glucometers -Low-dose sliding scale Humalog MAINTENANCE ISSUES -DVT prophylaxis; Lovenox 40 mg subcu daily -GI prophylaxis; PPI -Welch catheter; still necessary for a strict intake and output with a critical patient and steady diuresis, will reassess tomorrow -Nutrition; regular diet DISPOSITION-anticipate discharge to subacute rehab versus her detention after the hospital stay.
[2020-08-06] MEDS: Levofloxacin/Dextrose 5%-Water 750 MG in Premix Bag 1 BAG IV SCH (15:41)
[2020-08-06] MEDS ORDERED: Enoxaparin 40 MG/0.4 ML Syringe SUBCUT SCH (17:00)
[2020-08-06] MEDS ORDERED: Furosemide 20 MG/2 ML VIAL IVPUSH ONE (18:00)
[2020-08-06] MEDS: rOPINIRole 1 MG Tab PO SCH (20:43)
[2020-08-06] MEDS: Patient's Own Medication 1 Each PO SCH (20:45)
[2020-08-06] MEDS: Albuterol 0.083% 2.5 MG/3 ML Neb Soln NEB PRN (20:45)
[2020-08-07] MEDS: traMADol 50 MG Tab PO PRN ×2 (04:58→15:42)
[2020-08-07] MEDS: Albuterol 0.083% 2.5 MG/3 ML Neb Soln NEB SCH ×3 (07:36→14:58)
[2020-08-07] MEDS: Insulin Lispro 100 Unit/ML 3 ML KwikPen SUBCUT SCH ×2 (08:14→11:17)
[2020-08-07] MEDS ORDERED: Furosemide 20 MG Tab PO SCH (09:00)
--- NOTE | 2020-08-07 09:18 | PCM.PN ---
- General Info Date of Service: 08/07/20 Subjective Update: Ms. Shane has been stable and shown further improvement over the last 24 hours. Continues to require use of low level of supplemental oxygen. Appetite and overall strength are slowly improving. Renal function continues to slowly improve but is level from yesterday. Functional Status: Reports: Tolerating Diet, Ambulating, Urinating - Review of Systems General: Reports: Weakness. Denies: Fever, Chills Pulmonary: Reports: Shortness of Breath. Denies: Pleuritic Chest Pain, Cough, Sputum, Hemoptysis, Wheezing Cardiovascular: Reports: Dyspnea on Exertion. Denies: Chest Pain, Palpitations, Orthopnea, PND, Edema, Lightheadedness Gastrointestinal: Reports: No Symptoms - Patient Data Vitals - Most Recent: Last Vital Signs Temp 96.9 F 08/07/20 05:00 Pulse 83 08/07/20 07:37 Resp 16 08/07/20 05:00 BP 140/92 H 08/07/20 05:00 Pulse Ox 91 L 08/07/20 07:37 Weight - Most Recent: 263 lb 8 oz I&O - Last 24 Hours: Intake & Output 08/06/20 08/07/20 08/07/20 22:59 06:59 14:59 Intake Total 870 Output Total 3100 900 Balance -2230 -900 Lab Results Last 24 Hours: Laboratory Results - last 24 hr 08/07/20 08/07/20 Range/Units 04:50 04:50 WBC 9.9 (4.5-11.0) K/uL RBC 3.40 (3.30-5.50) M/uL Hgb 10.2 L (12.0-15.0) g/dL Hct 32.0 L (36.0-48.0) % MCV 94 (80-98) fL MCH 30 (27-31) pg MCHC 32 (32-36) % Plt Count 577 H (150-400) K/uL Add Manual Diff Yes Neutrophils % (Manual) 67 H (36-66) % Lymphocytes % (Manual) 23 L (24-44) % Monocytes % (Manual) 8 H (2-6) % Eosinophils % (Manual) 2 (2-4) % Sodium 137 L (140-148) mmol/L Potassium 4.4 (3.6-5.2) mmol/L Chloride 99 L (100-108) mmol/L Carbon Dioxide 29 (21-32) mmol/L Anion Gap 13.4 (5.0-14.0) mmol/L BUN 37 H (7-18) mg/dL Creatinine 2.2 H (0.6-1.0) mg/dL Est Cr Clr Drug Dosing 29.93 mL/min Estimated GFR (MDRD) 24 L (>60) Glucose 156 H (74-106) mg/dL Calcium 9.1 (8.5-10.1) mg/dL Med Orders - Current: Current Medications Acetaminophen (Tylenol) 650 mg PO Q4H PRN PRN Reason: temp greater than 100.5 Last Admin: 08/06/20 19:26 Dose: 650 mg Documented by: Albuterol (Proventil Neb Soln) 2.5 mg NEB Q4H PRN PRN Reason: Shortness Of Breath/wheezing Last Admin: 07/26/20 21:49 Dose: 2.5 mg Documented by: Albuterol (Proventil Neb Soln) 2.5 mg NEB QIDRT [facility] Last Admin: 08/07/20 07:36 Dose: 2.5 mg Documented by: Citalopram Hydrobromide (Celexa) 40 mg PO DAILY [facility] Last Admin: 08/06/20 08:19 Dose: 40 mg Documented by: Dextrose (Glutose 15) 15 gm PO ONETIME PRN PRN Reason: Hypoglycemia Dextrose/Water (Dextrose 50% In Water) 50 ml IV ONETIME PRN PRN Reason: Hypoglycemia Enoxaparin Sodium (Lovenox) 40 mg SUBCUT Q24H [facility] Last Admin: 08/06/20 17:07 Dose: 40 mg Documented by: Estradiol (Estradiol) 0.5 mg PO DAILY [facility] Last Admin: 08/06/20 08:19 Dose: 0.5 mg Documented by: Furosemide (Lasix) 20 mg PO DAILY [facility] Gabapentin (Neurontin) 400 mg PO DAILY [facility] Last Admin: 08/06/20 08:18 Dose: 400 mg Documented by: Insulin Human Lispro (Humalog) 0 unit SUBCUT QIDACANDBED [facility]; Protocol Last Admin: 08/07/20 08:14 Dose: 1 unit Documented by: Lorazepam (Ativan) 0.5 mg IVPUSH Q2H PRN PRN Reason: Anxiety Last Admin: 08/01/20 20:28 Dose: 0.5 mg Documented by: Lorazepam (Ativan) 1 mg PO TID [facility] Last Admin: 08/06/20 20:44 Dose: 1 mg Documented by: Olanzapine (Zyprexa) 15 mg PO DAILY@1500 PRN PRN Reason: * Olanzapine (Zyprexa) 15 mg PO DAILY [facility] Last Admin: 08/06/20 08:18 Dose: 15 mg Documented by: Ondansetron HCl (Zofran) 4 mg IV Q4H PRN PRN Reason: Nausea/Vomiting Last Admin: 07/26/20 22:52 Dose: 4 mg Documented by: Patient Own Medication (Ptom) 0 each PO BEDTIME [facility] Last Admin: 08/06/20 20:45 Dose: 1 each Documented by: Potassium Chloride (Klor-Con M20) 40 meq PO BID [facility] Last Admin: 08/06/20 20:44 Dose: 40 meq Documented by: Ropinirole HCl (Requip) 1 mg PO BEDTIME [facility] Last Admin: 08/06/20 20:43 Dose: 1 mg Documented by: Sodium Chloride (Saline Flush) 10 ml FLUSH ASDIRECTED PRN PRN Reason: Keep Vein Open Last Admin: 08/06/20 17:07 Dose: 10 ml Documented by: Tizanidine HCl (Zanaflex) 2 mg PO TID PRN PRN Reason: Muscle Spasm Last Admin: 08/06/20 20:44 Dose: 2 mg Documented by: Tramadol HCl (Ultram) 50 mg PO Q6H PRN PRN Reason: Pain Last Admin: 08/07/20 04:58 Dose: 50 mg Documented by: Discontinued Medications Acetaminophen (Tylenol) 650 mg PO Q4H PRN PRN Reason: Pain (Mild 1-3)/fever Last Admin: 07/25/20 20:13 Dose: 650 mg Documented by: Acetaminophen (Tylenol) 650 mg NGTUBE Q4H PRN PRN Reason: Pain (Mild 1-3)/fever Acetaminophen (Tylenol) 650 mg PO Q4H PRN PRN Reason: Pain (Mild 1-3)/fever Last Admin: 08/06/20 08:30 Dose: 650 mg Documented by: Citalopram Hydrobromide (Celexa) 40 mg PO DAILY [facility] Last Admin: 07/28/20 08:07 Dose: Not Given Documented by: Citalopram Hydrobromide (Celexa) 40 mg NGTUBE DAILY [facility] Last Admin: 08/01/20 08:19 Dose: 40 mg Documented by: Enoxaparin Sodium (Lovenox) 40 mg SUBCUT Q24H [facility] Last Admin: 07/28/20 17:06 Dose: 40 mg Documented by: Enoxaparin Sodium (Lovenox) 30 mg SUBCUT Q24H [facility] Last Admin: 08/05/20 16:41 Dose: 30 mg Documented by: Estradiol (Estradiol) 0.5 mg PO DAILY [facility] Last Admin: 07/28/20 08:07 Dose: Not Given Documented by: Estradiol (Estradiol) 0.5 mg NGTUBE DAILY [facility] Last Admin: 08/01/20 08:19 Dose: 0.5 mg Documented by: Furosemide (Lasix) 20 mg IVPUSH NOW ONE Stop: 07/29/20 10:46 Last Admin: 07/29/20 10:49 Dose: 20 mg Documented by: Furosemide (Lasix) 20 mg IVPUSH ONETIME ONE Stop: 07/30/20 09:21 Last Admin: 07/30/20 09:47 Dose: 20 mg Documented by: Furosemide (Lasix) 20 mg IVPUSH NOW ONE Stop: 08/01/20 09:26 Last Admin: 08/01/20 09:39 Dose: 20 mg Documented by: Furosemide (Lasix) 20 mg IVPUSH NOW ONE Stop: 08/02/20 08:12 Last Admin: 08/02/20 08:23 Dose: 20 mg Documented by: Furosemide (Lasix) 20 mg IVPUSH ONETIME ONE Stop: 08/02/20 16:01 Last Admin: 08/02/20 15:27 Dose: 20 mg Documented by: Furosemide (Lasix) 20 mg IVPUSH DAILY [facility] Last Admin: 08/06/20 08:23 Dose: 20 mg Documented by: Furosemide (Lasix) 20 mg IVPUSH ONETIME ONE Stop: 08/03/20 18:01 Last Admin: 08/03/20 17:01 Dose: 20 mg Documented by: Furosemide (Lasix) 20 mg IVPUSH Q8H [facility] Stop: 08/05/20 01:01 Last Admin: 08/05/20 00:04 Dose: 20 mg Documented by: Furosemide (Lasix) 20 mg IVPUSH ONETIME ONE Stop: 08/05/20 18:01 Last Admin: 08/05/20 18:14 Dose: 20 mg Documented by: Furosemide (Lasix) 20 mg IVPUSH NOW ONE Stop: 08/06/20 18:01 Last Admin: 08/06/20 17:07 Dose: 20 mg Documented by: Gabapentin (Neurontin) 400 mg PO TID [facility] Last Admin: 07/28/20 08:08 Dose: Not Given Documented by: Gabapentin (Neurontin) 400 mg NGTUBE TID [facility] Last Admin: 08/04/20 08:43 Dose: 400 mg Documented by: Heparin Sodium (Porcine) (Heparin Sodium) Confirm Administered Dose 5,000 units .ROUTE .STK-MED ONE Stop: 07/27/20 00:57 Last Admin: 07/27/20 01:55 Dose: Not Given Documented by: Lactated Ringer's (Ringers, Lactated) 1,000 mls @ 999 mls/hr IV ASDIRECTED [facility] Azithromycin 500 mg/ Sodium (Chloride) 250 mls @ 250 mls/hr IV Q24H [facility] Last Admin: 07/23/20 11:42 Dose: 250 mls/hr Documented by: Sodium Chloride (Normal Saline) 1,000 mls @ 999 mls/hr IV ASDIRECTED [facility] Last Admin: 07/23/20 11:41 Dose: 999 mls/hr Documented by: Ceftriaxone Sodium 1 gm/ (Sodium Chloride) 50 mls @ 100 mls/hr IV ONETIME ONE Stop: 07/23/20 11:04 Last Admin: 07/23/20 11:43 Dose: 100 mls/hr Documented by: Sodium Chloride (Normal Saline) 100 mls @ 3 mls/sec IV ONETIME ONE Stop: 07/23/20 12:21 Last Admin: 07/23/20 14:00 Dose: 3 mls/sec Documented by: Lactated Ringer's (Ringers, Lactated) 1,000 mls @ 125 mls/hr IV ASDIRECTED [facility] Last Admin: 07/24/20 07:17 Dose: 125 mls/hr Documented by: Piperacillin/Tazobactam/ (Dextrose 3.375 gm/ Premix) 50 mls @ 100 mls/hr IV Q6H [facility] Last Admin: 07/29/20 04:52 Dose: 100 mls/hr Documented by: Levofloxacin/Dextrose 750 mg/ (Premix) 150 mls @ 100 mls/hr IV Q24H [facility] Last Admin: 07/27/20 16:47 Dose: 100 mls/hr Documented by: Magnesium Sulfate 2 gm/ Premix 50 mls @ 25 mls/hr IV Q6H [facility] Stop: 07/24/20 16:59 Last Admin: 07/24/20 14:44 Dose: 25 mls/hr Documented by: Lactated Ringer's (Ringers, Lactated) 1,000 mls @ 75 mls/hr IV ASDIRECTED [facility] Last Admin: 07/24/20 20:59 Dose: 75 mls/hr Documented by: Lactated Ringer's (Ringers, Lactated) 1,000 mls @ 50 mls/hr IV ASDIRECTED [facility] Last Admin: 07/27/20 08:12 Dose: 50 mls/hr Documented by: Vancomycin HCl 1.75 gm/ Sodium (Chloride) 250 mls @ 166.667 mls/hr IV Q8H [facility] Last Admin: 07/27/20 11:15 Dose: 166.667 mls/hr Documented by: Heparin Sodium (Porcine) 5,000 (units/ Sodium Chloride) 501 mls @ 0 mls/hr IV ASDIRECTED [facility] Last Admin: 07/29/20 15:26 Dose: 1 mls/hr Documented by: Propofol (Diprivan 100 Ml) Confirm Administered Dose 100 mls @ as directed .ROUTE .STK-MED ONE Stop: 07/27/20 01:18 Last Admin: 07/27/20 01:43 Dose: Not Given Documented by: Propofol (Diprivan 100 Ml) 100 mls @ 15.709 mls/hr IV TITRATE [facility]; Protocol Last Titration: 07/31/20 09:16 Dose: 0 mcg/kg/min, 0 mls/hr Documented by: Vancomycin HCl 1.5 gm/ Sodium (Chloride) 250 mls @ 166.667 mls/hr IV Q8H [facility] Last Admin: 07/28/20 03:12 Dose: 166.667 mls/hr Documented by: Sodium Chloride (Normal Saline) 90 mls @ 3 mls/sec IV ASDIRECTED [facility] Stop: 07/27/20 14:30 Last Admin: 07/27/20 15:05 Dose: 3 mls/sec Documented by: Levofloxacin/Dextrose 750 mg/ (Premix) 150 mls @ 100 mls/hr IV Q48H [facility] Last Admin: 08/06/20 15:41 Dose: 100 mls/hr Documented by: Ceftazidime 1 gm/ Sodium (Chloride) 50 mls @ 100 mls/hr IV Q24H [facility] Last Admin: 08/01/20 11:03 Dose: 100 mls/hr Documented by: Dextrose/Sodium Chloride (Dextrose 5%-Normal Saline) 1,000 mls @ 50 mls/hr IV ASDIRECTED [facility] Last Admin: 07/31/20 07:33 Dose: 50 mls/hr Documented by: Potassium Chloride/Dextrose/Sod Cl (D5 1/4 Ns With 20 Meq Kcl) 1,000 mls @ 50 mls/hr IV ASDIRECTED [facility] Last Admin: 08/01/20 05:33 Dose: 50 mls/hr Documented by: Dextrose/Water (Dextrose 5% In Water) 1,000 mls @ 125 mls/hr IV ASDIRECTED [facility] Last Admin: 08/02/20 08:20 Dose: 125 mls/hr Documented by: Potassium Chloride 20 meq/Lidocaine HCl 2 ml/ Sodium Chloride 112 mls @ 56 mls/hr IV Q2H [facility] Stop: 08/01/20 19:59 Last Admin: 08/01/20 17:55 Dose: 56 mls/hr Documented by: Ibuprofen (Motrin) 800 mg PO BID [facility] Last Admin: 07/28/20 08:07 Dose: Not Given Documented by: Ibuprofen (Motrin) 400 mg PO Q8H PRN PRN Reason: Fever Last Admin: 07/26/20 14:54 Dose: 400 mg Documented by: Iopamidol (Isovue-370 (76%)) 100 ml IV . DIRECTED [facility] Last Admin: 07/23/20 14:00 Dose: 100 ml Documented by: Iopamidol (Isovue-370 (76%)) 100 ml IV . DIRECTED [facility] Stop: 07/27/20 14:30 Last Admin: 07/27/20 15:04 Dose: 100 ml Documented by: Lorazepam (Ativan) 1 mg PO TID [facility] Last Admin: 07/28/20 08:07 Dose: Not Given Documented by: Lorazepam (Ativan) Confirm Administered Dose 2 mg .ROUTE .STK-MED ONE Stop: 07/26/20 23:52 Last Admin: 07/26/20 23:55 Dose: Not Given Documented by: Lorazepam (Ativan) 1 mg NGTUBE TID [facility] Last Admin: 07/28/20 14:59 Dose: 1 mg Documented by: Magnesium Oxide (Magnesium Oxide) 400 mg PO BID [facility] Last Admin: 07/28/20 08:07 Dose: Not Given Documented by: Magnesium Oxide (Magnesium Oxide) 400 mg NGTUBE BID [facility] Last Admin: 07/29/20 08:20 Dose: 400 mg Documented by: Scopolamine Patch (Check) 1 each TOP DAILY [facility] Stop: 07/29/20 09:01 Last Admin: 07/29/20 08:12 Dose: Not Given Documented by: Olanzapine (Zyprexa) 15 mg PO DAILY [facility] Last Admin: 07/28/20 08:08 Dose: Not Given Documented by: Olanzapine (Zyprexa) 15 mg PO DAILY@1500 PRN PRN Reason: * Last Admin: 07/25/20 08:40 Dose: 15 mg Documented by: Olanzapine (Zyprexa) 15 mg NGTUBE DAILY@1500 PRN PRN Reason: * Olanzapine (Zyprexa) 15 mg NGTUBE DAILY [facility] Last Admin: 08/01/20 08:18 Dose: 15 mg Documented by: Oxycodone HCl (Oxycodone) 5 mg PO Q4H PRN PRN Reason: Pain (moderate 4-6) Last Admin: 07/26/20 20:30 Dose: 5 mg Documented by: Oxycodone HCl (Oxycodone) 5 mg NGTUBE Q4H PRN PRN Reason: Pain (moderate 4-6) Pantoprazole Sodium (Protonix) 40 mg PO ACBREAKFAST [facility] Last Admin: 07/27/20 08:50 Dose: Not Given Documented by: Pantoprazole Sodium (Protonix Iv) 40 mg IVPUSH Q24H [facility] Last Admin: 08/01/20 13:38 Dose: 40 mg Documented by: Clozapine 200mg (Ptom) 0 each PO BEDTIME [facility] Last Admin: 07/27/20 20:17 Dose: Not Given Documented by: Clozapine 200mg (Ptom) 0 each NGTUBE BEDTIME [facility] Last Admin: 07/31/20 21:27 Dose: 1 each Documented by: Patient Own Medication (Ptom) 1 each PO BEDTIME [facility] Last Admin: 08/02/20 19:24 Dose: Not Given Documented by: Clozapine 200 Mg Tab (*Pt Own Med*) 0 each PO ONETIME ONE Stop: 08/01/20 21:01 Last Admin: 08/01/20 20:22 Dose: 1 each Documented by: Polyethylene Glycol (Miralax) 17 gm PO DAILY PRN PRN Reason: Constipation Propofol (Diprivan 20 Ml) Confirm Administered Dose 200 mg .ROUTE .STK-MED ONE Stop: 07/27/20 07:06 Ropinirole HCl (Requip) 1 mg PO BEDTIME [facility] Last Admin: 07/27/20 20:17 Dose: Not Given Documented by: Ropinirole HCl (Requip) 1 mg NGTUBE BEDTIME [facility] Last Admin: 07/31/20 21:36 Dose: 1 mg Documented by: Scopolamine (Transderm-Scop) 1.5 mg TRDERM Q72H [facility] Last Admin: 07/30/20 14:35 Dose: 1.5 mg Documented by: Sodium Chloride (Saline Flush) 10 ml FLUSH ONETIME PRN PRN Reason: PER RADIOLOGY PROTOCOL Last Admin: 07/23/20 14:00 Dose: 10 ml Documented by: Sodium Chloride (Saline Flush) 10 ml FLUSH ONETIME ONE Stop: 07/27/20 13:46 Last Admin: 07/27/20 15:06 Dose: 10 ml Documented by: Succinylcholine Chloride (Quelicin) Confirm Administered Dose 200 mg .ROUTE .STK-MED ONE Stop: 07/27/20 07:06 Tizanidine HCl (Zanaflex) 2 mg PO TID [facility] Last Admin: 07/28/20 08:08 Dose: Not Given Documented by: Tizanidine HCl (Zanaflex) 2 mg PO TID [facility] Last Admin: 08/04/20 08:43 Dose: 2 mg Documented by: - Exam Quality Assessment: DVT Prophylaxis General: Alert, Oriented, Cooperative, Mild Distress Lungs: Clear to Auscultation, Normal Respiratory Effort Cardiovascular: Regular Rate, Regular Rhythm, No Murmurs GI/Abdominal Exam: Soft, Non-Tender, No Organomegaly, No Distention Extremities: Non-Tender, No Pedal Edema Sepsis Event Note - Evaluation Sepsis Screening Result: No Definite Risk - Focused Exam Vital Signs: Vital Signs Temp Pulse Resp BP Pulse Ox Pulse Ox 08/07/20 07:37 83 91 L 08/07/20 05:00 96.9 F 94 16 140/92 H 90 L 08/07/20 03:00 16 08/06/20 22:37 97.5 F 93 16 147/91 H 92 L - Problem List Review Problem List Initiated/Reviewed/Updated: Yes - My Orders Last 24 Hours: My Active Orders 08/06/20 12:30 Acetaminophen [TylenoL] 650 mg PO Q4H PRN 08/06/20 14:38 traMADol [Ultram] 50 mg PO Q6H PRN 08/06/20 17:00 Enoxaparin [Lovenox] 40 mg SUBCUT Q24H 08/07/20 09:00 Furosemide [Lasix] 20 mg PO DAILY 08/08/20 05:00 BASIC METABOLIC PANEL,BMP [CHEM] Timed - Plan Plan:: ASSESSMENT AND PLAN BILATERAL PNEUMONIA WITH SEPSIS-cultures have been negative. Steady clinical improvement but still requiring low level of supplemental oxygen. -Saline lock IV HYPOXIC AND HYPERCAPNIC RESPIRATORY FAILURE-currently improved, only requiring low level of supplemental oxygen -Furosemide 20 mg p.o. daily -Supplement oxygen as needed -Scheduled and as needed nebulizers ACUTE KIDNEY INJURY-urine output has been good and creatinine level has slowly improved but has not returned to normal. 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 -Continue home medications TYPE 2 DIABETES MELLITUS-sugars stable. -Hold metformin until kidney function improves -4 times daily glucometers -Low-dose sliding scale Humalog MAINTENANCE ISSUES -DVT prophylaxis; Lovenox 40 mg subcu daily -GI prophylaxis; PPI -Welch catheter; still necessary for a strict intake and output with a critical patient and steady diuresis, will reassess tomorrow -Nutrition; regular diet DISPOSITION-anticipate discharge to subacute rehab versus her senior living after the hospital stay.
[2020-08-07] MEDS: Gabapentin 400 MG Cap PO SCH (09:51)
[2020-08-07] MEDS: Citalopram 20 MG Tab PO SCH (09:51)
[2020-08-07] MEDS: LORazepam 1 MG Tab PO SCH ×2 (09:51→13:42)
[2020-08-07] MEDS: Acetaminophen 325 MG Tab PO PRN (09:52)
[2020-08-07] MEDS: Estradiol 0.5 MG Tab PO SCH (09:52)
[2020-08-07] MEDS: Potassium Chloride 20 MEQ Tab.ER PO SCH (09:52)
[2020-08-07] MEDS: OLANZapine 5 MG Tab PO SCH (09:53)
--- NOTE | 2020-08-07 14:29 | PCM.DCSUM1 ---
Discharge Summary - Hospital Course Brief History: Ms. Shane is a 40-year-old woman who was admitted through the emergency department with shortness of breath and hypoxia secondary to bilateral pneumonia with sepsis. - Discharge Data Discharge Date: 08/07/20 Discharge Disposition: Home, W Home Health Agency 06 Condition: Fair - Referral to Home Health Date of Face to Face Encounter: 08/07/20 Reason for Homebound Status: Hypoxia, weakness Primary Care Physician: Crystal Loza MD Skilled Need: Nursing care, home physical therapy and Occupational Therapy - Discharge Diagnosis/Problem(s) (1) YEIMY (acute kidney injury) SNOMED Code(s): 44041507, 22297347 ICD Code: N17.9 - ACUTE KIDNEY FAILURE, UNSPECIFIED Status: Acute Current Visit: Yes (2) ARDS (adult respiratory distress syndrome) SNOMED Code(s): 48261821, 17041489 ICD Code: J80 - ACUTE RESPIRATORY DISTRESS SYNDROME Status: Acute Current Visit: Yes (3) Acute respiratory failure with hypoxia and hypercapnia SNOMED Code(s): 785409303 ICD Code: J96.01 - ACUTE RESPIRATORY FAILURE WITH HYPOXIA; J96.02 - ACUTE RESPIRATORY FAILURE WITH HYPERCAPNIA Status: Acute Current Visit: Yes (4) Pneumonia SNOMED Code(s): 526318570 ICD Code: J18.9 - PNEUMONIA, UNSPECIFIED ORGANISM Status: Acute Current Visit: Yes Qualifiers: Pneumonia type: due to unspecified organism Laterality: bilateral Lung location: lower lobe of lung Qualified Code(s): J18.9 - Pneumonia, unspecified organism (5) Schizophrenia, catatonic type SNOMED Code(s): 961004829 ICD Code: F20.2 - CATATONIC SCHIZOPHRENIA Status: Chronic Current Visit: No (6) Type 2 diabetes mellitus SNOMED Code(s): 23007188 ICD Code: E11.9 - TYPE 2 DIABETES MELLITUS WITHOUT COMPLICATIONS Status: Chronic Current Visit: No - Patient Summary/Data Consults: Consultations 08/01/20 13:02 Consult to Gas Pump Attendant [CONS] Routine Comment: Physician Instructions: Quantity: 08/05/20 07:00 PT Evaluation and Treatment [CONS] Routine Please Evaluate and Treat. PT Reason for Consult: Strengthening This query below is only for informational purposes and is not editable. Admission Diagnosis/Problem: Pneumonia Hospital Course: Ms. Shane is a 40-year-old woman who was admitted through the emergency department with shortness of breath weakness and fever secondary to bilateral pneumonia with sepsis and hypoxia. She had not felt well over the past 4 days with progressive shortness of breath and weakness. She denied much in the way of cough, fever, or chills. She was seen and evaluated in the clinic, and was noted to have no infiltrates. COVID test was obtained during the clinic visit but results are not yet available. She returned home but experienced further shortness of breath and presented to the emergency department this morning. Chest x-ray suggested infiltrates and she was found to be hypoxic with an elevated white count. CT scan of the chest with contrast showed no evidence of pulmonary emboli but did identify bilateral infiltrates. She was felt to have sepsis with tachycardia, modest elevation in lactic acid level, and elevated white blood cell count. She was started on appropriate antibiotics in the emergency department and blood cultures obtained. She is also been given vigorous IV fluid replacement per sepsis protocol. She was found to be hypoxic and did require supplemental oxygen. She was admitted to the medical surgical floor with supplemental oxygen, IV fluids, and I V antibiotic therapy for community-acquired pneumonia with ceftriaxone and doxycycline. Over the first 24 hours of hospitalization she unfortunately experienced further respiratory decline and was transferred to the intensive care unit for use of noninvasive positive pressure ventilation. She did well with use of BiPAP and antibiotics were expanded to vancomycin, meropenem, and levofloxacin. Cultures had been obtained on admission and were repeated as her respiratory decline worsened. All cultures remain negative including respiratory cultures during her hospital stay. She initially was stable with use of BiPAP but then unfortunately experienced further decline and required intubation and mechanical ventilation. White blood cell count had normalized and she had been afebrile was felt that some of her respiratory compromise was secondary to a component of ARDS. She slowly improved on the ventilator and after several days was extubated with transition back to noninvasive positive pressure ventilation. Since then she has gradually improved with improvement in overall oxygenation but at the time of discharge continues to experience hypoxia and requires use of supplemental oxygen. She will be discharged home with supplemental oxygen for her ongoing hypoxia. She had completed adequate courses of antibiotic therapy prior to discharge and will not require antibiotics at the time of discharge. She was given diuretic therapy and had excellent diuresis prior to discharge. Renal function had improved but was not yet back to baseline by the time of discharge and she should have a follow-up BMP obtained at the time of follow-up appointment with primary care provider within 1 week. She will be discharged back to her detention activity will be as tolerated and she will resume her usual diet. Home care services will be arranged including home physical therapy and Occupational Therapy. - Patient Instructions Diet: Usual Diet as Tolerated Activity: As Tolerated Other/Special Instructions: Discharge home with home oxygen 1 to 2 L/min via na judith cannula. Follow-up appointment with primary care provider within 1 week; BMP and CBC should be obtained at the time of follow-up appointment. Discharged home with home care services including home physical therapy and Occupational Therapy. - Discharge Plan *PRESCRIPTION DRUG MONITORING PROGRAM REVIEWED*: Not Applicable *COPY OF PRESCRIPTION DRUG MONITORING REPORT IN PATIENT ROSIE: Not Applicable Home Medications: Home Meds Citalopram Hydrobromide [Celexa] 40 mg PO DAILY 07/23/20 [History] Gabapentin [Neurontin] 400 mg PO TID 07/23/20 [History] LORazepam [Ativan] 1 mg PO TID 07/23/20 [History] OLANZapine [Olanzapine] 15 mg PO DAILY 07/23/20 [History] Omeprazole 20 mg PO DAILY 07/23/20 [History] cloZAPine [Clozapine] 200 mg PO BEDTIME 07/23/20 [History] estradioL [Estradiol] 0.5 mg PO DAILY 07/23/20 [History] metFORMIN [Glucophage XR] 750 mg PO DAILY 07/23/20 [History] rOPINIRole [Requip] 1 mg PO BEDTIME 07/23/20 [History] tiZANidine 2 mg PO TID 07/23/20 [History] Oxygen Therapy Mode: Nasal Cannula Oxygen Flow Rate (L/min): 2 Maintain SpO2% greater than: 90 Referrals: Crystal Loza MD [Primary Care Provider] - 08/13/20 10:20 am (Please arrive 15 minutes early to register for your appointment. YOUR APPOINTMENT WITH DR LOZA IS AT THE [facility].) - Discharge Summary/Plan Comment DC Time >30 min.: No - Patient Data Vitals - Most Recent: Last Vital Signs Temp 96.9 F 08/07/20 13:00 Pulse 86 08/07/20 13:00 Resp 16 08/07/20 13:00 BP 137/81 08/07/20 13:00 Pulse Ox 91 L 08/07/20 13:00 Weight - Most Recent: 230 lb I&O - Last 24 hours: Intake & Output 08/06/20 08/07/20 08/07/20 22:59 06:59 14:59 Intake Total 870 600 Output Total 3100 900 1000 Balance -7078 -900 -038 Lab Results - Last 24 hrs: Laboratory Results - last 24 hr 08/07/20 08/07/20 Range/Units 04:50 04:50 WBC 9.9 (4.5-11.0) K/uL RBC 3.40 (3.30-5.50) M/uL Hgb 10.2 L (12.0-15.0) g/dL Hct 32.0 L (36.0-48.0) % MCV 94 (80-98) fL MCH 30 (27-31) pg MCHC 32 (32-36) % Plt Count 577 H (150-400) K/uL Add Manual Diff Yes Neutrophils % (Manual) 67 H (36-66) % Lymphocytes % (Manual) 23 L (24-44) % Monocytes % (Manual) 8 H (2-6) % Eosinophils % (Manual) 2 (2-4) % Sodium 137 L (140-148) mmol/L Potassium 4.4 (3.6-5.2) mmol/L Chloride 99 L (100-108) mmol/L Carbon Dioxide 29 (21-32) mmol/L Anion Gap 13.4 (5.0-14.0) mmol/L BUN 37 H (7-18) mg/dL Creatinine 2.2 H (0.6-1.0) mg/dL Est Cr Clr Drug Dosing 29.93 mL/min Estimated GFR (MDRD) 24 L (>60) Glucose 156 H (74-106) mg/dL Calcium 9.1 (8.5-10.1) mg/dL Med Orders - Current: Current Medications Acetaminophen (Tylenol) 650 mg PO Q4H PRN PRN Reason: temp greater than 100.5 Last Admin: 08/07/20 09:52 Dose: 650 mg Documented by: Albuterol (Proventil Neb Soln) 2.5 mg NEB Q4H PRN PRN Reason: Shortness Of Breath/wheezing Last Admin: 07/26/20 21:49 Dose: 2.5 mg Documented by: Albuterol (Proventil Neb Soln) 2.5 mg NEB QIDRT PENDING SALE TO [facility] Last Admin: 08/07/20 11:25 Dose: 2.5 mg Documented by: Citalopram Hydrobromide (Celexa) 40 mg PO DAILY PENDING SALE TO [facility] Last Admin: 08/07/20 09:51 Dose: 40 mg Documented by: Dextrose (Glutose 15) 15 gm PO ONETIME PRN PRN Reason: Hypoglycemia Dextrose/Water (Dextrose 50% In Water) 50 ml IV ONETIME PRN PRN Reason: Hypoglycemia Enoxaparin Sodium (Lovenox) 40 mg SUBCUT Q24H PENDING SALE TO [facility] Last Admin: 08/06/20 17:07 Dose: 40 mg Documented by: Estradiol (Estradiol) 0.5 mg PO DAILY PENDING SALE TO [facility] Last Admin: 08/07/20 09:52 Dose: 0.5 mg Documented by: Furosemide (Lasix) 20 mg PO DAILY PENDING SALE TO [facility] Last Admin: 08/07/20 09:55 Dose: 20 mg Documented by: Gabapentin (Neurontin) 400 mg PO DAILY PENDING SALE TO [facility] Last Admin: 08/07/20 09:51 Dose: 400 mg Documented by: Insulin Human Lispro (Humalog) 0 unit SUBCUT QIDACANDBED PENDING SALE TO [facility]; Protocol Last Admin: 08/07/20 11:17 Dose: 1 unit Documented by: Lorazepam (Ativan) 0.5 mg IVPUSH Q2H PRN PRN Reason: Anxiety Last Admin: 08/01/20 20:28 Dose: 0.5 mg Documented by: Lorazepam (Ativan) 1 mg PO TID PENDING SALE TO [facility] Last Admin: 08/07/20 13:42 Dose: 1 mg Documented by: Olanzapine (Zyprexa) 15 mg PO DAILY@1500 PRN PRN Reason: * Olanzapine (Zyprexa) 15 mg PO DAILY PENDING SALE TO [facility] Last Admin: 08/07/20 09:53 Dose: 15 mg Documented by: Ondansetron HCl (Zofran) 4 mg IV Q4H PRN PRN Reason: Nausea/Vomiting Last Admin: 07/26/20 22:52 Dose: 4 mg Documented by: Patient Own Medication (Ptom) 0 each PO BEDTIME PENDING SALE TO [facility] Last Admin: 08/06/20 20:45 Dose: 1 each Documented by: Potassium Chloride (Klor-Con M20) 40 meq PO BID PENDING SALE TO [facility] Last Admin: 08/07/20 09:52 Dose: 40 meq Documented by: Ropinirole HCl (Requip) 1 mg PO BEDTIME PENDING SALE TO [facility] Last Admin: 08/06/20 20:43 Dose: 1 mg Documented by: Sodium Chloride (Saline Flush) 10 ml FLUSH ASDIRECTED PRN PRN Reason: Keep Vein Open Last Admin: 08/06/20 17:07 Dose: 10 ml Documented by: Tizanidine HCl (Zanaflex) 2 mg PO TID PRN PRN Reason: Muscle Spasm Last Admin: 08/06/20 20:44 Dose: 2 mg Documented by: Tramadol HCl (Ultram) 50 mg PO Q6H PRN PRN Reason: Pain Last Admin: 08/07/20 04:58 Dose: 50 mg Documented by: Discontinued Medications Acetaminophen (Tylenol) 650 mg PO Q4H PRN PRN Reason: Pain (Mild 1-3)/fever Last Admin: 07/25/20 20:13 Dose: 650 mg Documented by: Acetaminophen (Tylenol) 650 mg NGTUBE Q4H PRN PRN Reason: Pain (Mild 1-3)/fever Acetaminophen (Tylenol) 650 mg PO Q4H PRN PRN Reason: Pain (Mild 1-3)/fever Last Admin: 08/06/20 08:30 Dose: 650 mg Documented by: Citalopram Hydrobromide (Celexa) 40 mg PO DAILY PENDING SALE TO [facility] Last Admin: 07/28/20 08:07 Dose: Not Given Documented by: Citalopram Hydrobromide (Celexa) 40 mg NGTUBE DAILY PENDING SALE TO [facility] Last Admin: 08/01/20 08:19 Dose: 40 mg Documented by: Enoxaparin Sodium (Lovenox) 40 mg SUBCUT Q24H PENDING SALE TO [facility] Last Admin: 07/28/20 17:06 Dose: 40 mg Documented by: Enoxaparin Sodium (Lovenox) 30 mg SUBCUT Q24H PENDING SALE TO [facility] Last Admin: 08/05/20 16:41 Dose: 30 mg Documented by: Estradiol (Estradiol) 0.5 mg PO DAILY PENDING SALE TO [facility] Last Admin: 07/28/20 08:07 Dose: Not Given Documented by: Estradiol (Estradiol) 0.5 mg NGTUBE DAILY PENDING SALE TO [facility] Last Admin: 08/01/20 08:19 Dose: 0.5 mg Documented by: Furosemide (Lasix) 20 mg IVPUSH NOW ONE Stop: 07/29/20 10:46 Last Admin: 07/29/20 10:49 Dose: 20 mg Documented by: Furosemide (Lasix) 20 mg IVPUSH ONETIME ONE Stop: 07/30/20 09:21 Last Admin: 07/30/20 09:47 Dose: 20 mg Documented by: Furosemide (Lasix) 20 mg IVPUSH NOW ONE Stop: 08/01/20 09:26 Last Admin: 08/01/20 09:39 Dose: 20 mg Documented by: Furosemide (Lasix) 20 mg IVPUSH NOW ONE Stop: 08/02/20 08:12 Last Admin: 08/02/20 08:23 Dose: 20 mg Documented by: Furosemide (Lasix) 20 mg IVPUSH ONETIME ONE Stop: 08/02/20 16:01 Last Admin: 08/02/20 15:27 Dose: 20 mg Documented by: Furosemide (Lasix) 20 mg IVPUSH DAILY PENDING SALE TO [facility] Last Admin: 08/06/20 08:23 Dose: 20 mg Documented by: Furosemide (Lasix) 20 mg IVPUSH ONETIME ONE Stop: 08/03/20 18:01 Last Admin: 08/03/20 17:01 Dose: 20 mg Documented by: Furosemide (Lasix) 20 mg IVPUSH Q8H PENDING SALE TO [facility] Stop: 08/05/20 01:01 Last Admin: 08/05/20 00:04 Dose: 20 mg Documented by: Furosemide (Lasix) 20 mg IVPUSH ONETIME ONE Stop: 08/05/20 18:01 Last Admin: 08/05/20 18:14 Dose: 20 mg Documented by: Furosemide (Lasix) 20 mg IVPUSH NOW ONE Stop: 08/06/20 18:01 Last Admin: 08/06/20 17:07 Dose: 20 mg Documented by: Gabapentin (Neurontin) 400 mg PO TID PENDING SALE TO [facility] Last Admin: 07/28/20 08:08 Dose: Not Given Documented by: Gabapentin (Neurontin) 400 mg NGTUBE TID PENDING SALE TO [facility] Last Admin: 08/04/20 08:43 Dose: 400 mg Documented by: Heparin Sodium (Porcine) (Heparin Sodium) Confirm Administered Dose 5,000 units .ROUTE .STK-MED ONE Stop: 07/27/20 00:57 Last Admin: 07/27/20 01:55 Dose: Not Given Documented by: Lactated Ringer's (Ringers, Lactated) 1,000 mls @ 999 mls/hr IV ASDIRECTED PENDING SALE TO [facility] Azithromycin 500 mg/ Sodium (Chloride) 250 mls @ 250 mls/hr IV Q24H PENDING SALE TO [facility] Last Admin: 07/23/20 11:42 Dose: 250 mls/hr Documented by: Sodium Chloride (Normal Saline) 1,000 mls @ 999 mls/hr IV ASDIRECTED PENDING SALE TO [facility] Last Admin: 07/23/20 11:41 Dose: 999 mls/hr Documented by: Ceftriaxone Sodium 1 gm/ (Sodium Chloride) 50 mls @ 100 mls/hr IV ONETIME ONE Stop: 07/23/20 11:04 Last Admin: 07/23/20 11:43 Dose: 100 mls/hr Documented by: Sodium Chloride (Normal Saline) 100 mls @ 3 mls/sec IV ONETIME ONE Stop: 07/23/20 12:21 Last Admin: 07/23/20 14:00 Dose: 3 mls/sec Documented by: Lactated Ringer's (Ringers, Lactated) 1,000 mls [facility] Last Admin: 07/24/20 07:17 Dose: 125 mls/hr Documented by: Piperacillin/Tazobactam/ (Dextrose 3.375 gm/ Premix) 50 mls @ 100 mls/hr IV Q6H PENDING SALE TO [facility] Last Admin: 07/29/20 04:52 Dose: 100 mls/hr Documented by: Levofloxacin/Dextrose 750 mg/ (Premix) 150 mls @ 100 mls/hr IV Q24H PENDING SALE TO [facility] Last Admin: 07/27/20 16:47 Dose: 100 mls/hr Documented by: Magnesium Sulfate 2 gm/ Premix 50 mls @ 25 mls/hr IV Q6H PENDING SALE TO [facility] Stop: 07/24/20 16:59 Last Admin: 07/24/20 14:44 Dose: 25 mls/hr Documented by: Lactated Ringer's (Ringers, Lactated) 1,000 mls @ 75 mls/hr IV ASDIRECTED PENDING SALE TO [facility] Last Admin: 07/24/20 20:59 Dose: 75 mls/hr Documented by: Lactated Ringer's (Ringers, Lactated) 1,000 mls @ 50 mls/hr IV ASDIRECTED PENDING SALE TO [facility] Last Admin: 07/27/20 08:12 Dose: 50 mls/hr Documented by: Vancomycin HCl 1.75 gm/ Sodium (Chloride) 250 mls @ 166.667 mls/hr IV Q8H PENDING SALE TO [facility] Last Admin: 07/27/20 11:15 Dose: 166.667 mls/hr Documented by: Heparin Sodium (Porcine) 5,000 (units/ Sodium Chloride) 501 mls @ 0 mls/hr IV ASDIRECTED PENDING SALE TO [facility] Last Admin: 07/29/20 15:26 Dose: 1 mls/hr Documented by: Propofol (Diprivan 100 Ml) Confirm Administered Dose 100 mls @ as directed .ROUTE .STK-MED ONE Stop: 07/27/20 01:18 Last Admin: 07/27/20 01:43 Dose: Not Given Documented by: Propofol (Diprivan 100 Ml) 100 mls @ 15.709 mls/hr IV TITRATE PENDING SALE TO [facility]; Protocol Last Titration: 07/31/20 09:16 Dose: 0 mcg/kg/min, 0 mls/hr Documented by: Vancomycin HCl 1.5 gm/ Sodium (Chloride) 250 mls @ 166.667 mls/hr IV Q8H PENDING SALE TO [facility] Last Admin: 07/28/20 03:12 Dose: 166.667 mls/hr Documented by: Sodium Chloride (Normal Saline) 90 mls @ 3 mls/sec IV ASDIRECTED PENDING SALE TO [facility] Stop: 07/27/20 14:30 Last Admin: 07/27/20 15:05 Dose: 3 mls/sec Documented by: Levofloxacin/Dextrose 750 mg/ (Premix) 150 mls @ 100 mls/hr IV Q48H PENDING SALE TO [facility] Last Admin: 08/06/20 15:41 Dose: 100 mls/hr Documented by: Ceftazidime 1 gm/ Sodium (Chloride) 50 mls @ 100 mls/hr IV Q24H PENDING SALE TO [facility] Last Admin: 08/01/20 11:03 Dose: 100 mls/hr Documented by: Dextrose/Sodium Chloride (Dextrose 5%-Normal Saline) 1,000 mls @ 50 mls/hr IV ASDIRECTED PENDING SALE TO [facility] Last Admin: 07/31/20 07:33 Dose: 50 mls/hr Documented by: Potassium Chloride/Dextrose/Sod Cl (D5 1/4 Ns With 20 Meq Kcl) 1,000 mls @ 50 mls/hr IV ASDIRECTED PENDING SALE TO [facility] Last Admin: 08/01/20 05:33 Dose: 50 mls/hr Documented by: Dextrose/Water (Dextrose 5% In Water) 1,000 mls @ 125 mls/hr IV ASDIRECTED PENDING SALE TO [facility] Last Admin: 08/02/20 08:20 Dose: 125 mls/hr Documented by: Potassium Chloride 20 meq/Lidocaine HCl 2 ml/ Sodium Chloride 112 mls @ 56 mls/hr IV Q2H PENDING SALE TO [facility] Stop: 08/01/20 19:59 Last Admin: 08/01/20 17:55 Dose: 56 mls/hr Documented by: Ibuprofen (Motrin) 800 mg PO BID PENDING SALE TO [facility] Last Admin: 07/28/20 08:07 Dose: Not Given Documented by: Ibuprofen (Motrin) 400 mg PO Q8H PRN PRN Reason: Fever Last Admin: 07/26/20 14:54 Dose: 400 mg Documented by: Iopamidol (Isovue-370 (76%)) 100 ml IV . DIRECTED PENDING SALE TO [facility] Last Admin: 07/23/20 14:00 Dose: 100 ml Documented by: Iopamidol (Isovue-370 (76%)) 100 ml IV . DIRECTED PENDING SALE TO [facility] Stop: 07/27/20 14:30 Last Admin: 07/27/20 15:04 Dose: 100 ml Documented by: Lorazepam (Ativan) 1 mg PO TID PENDING SALE TO [facility] Last Admin: 07/28/20 08:07 Dose: Not Given Documented by: Lorazepam (Ativan) Confirm Administered Dose 2 mg .ROUTE .STK-MED ONE Stop: 07/26/20 23:52 Last Admin: 07/26/20 23:55 Dose: Not Given Documented by: Lorazepam (Ativan) 1 mg NGTUBE TID PENDING SALE TO [facility] Last Admin: 07/28/20 14:59 Dose: 1 mg Documented by: Magnesium Oxide (Magnesium Oxide) 400 mg PO BID PENDING SALE TO [facility] Last Admin: 07/28/20 08:07 Dose: Not Given Documented by: Magnesium Oxide (Magnesium Oxide) 400 mg NGTUBE BID PENDING SALE TO [facility] Last Admin: 07/29/20 08:20 Dose: 400 mg Documented by: Scopolamine Patch (Check) 1 each TOP DAILY PENDING SALE TO [facility] Stop: 07/29/20 09:01 Last Admin: 07/29/20 08:12 Dose: Not Given Documented by: Olanzapine (Zyprexa) 15 mg PO DAILY PENDING SALE TO [facility] Last Admin: 07/28/20 08:08 Dose: Not Given Documented by: Olanzapine (Zyprexa) 15 mg PO DAILY@1500 PRN PRN Reason: * Last Admin: 07/25/20 08:40 Dose: 15 mg Documented by: Olanzapine (Zyprexa) 15 mg NGTUBE DAILY@1500 PRN PRN Reason: * Olanzapine (Zyprexa) 15 mg NGTUBE DAILY PENDING SALE TO [facility] Last Admin: 08/01/20 08:18 Dose: 15 mg Documented by: Oxycodone HCl (Oxycodone) 5 mg PO Q4H PRN PRN Reason: Pain (moderate 4-6) Last Admin: 07/26/20 20:30 Dose: 5 mg Documented by: Oxycodone HCl (Oxycodone) 5 mg NGTUBE Q4H PRN PRN Reason: Pain (moderate 4-6) Pantoprazole Sodium (Protonix) 40 mg PO ACBREAKFAST PENDING SALE TO [facility] Last Admin: 07/27/20 08:50 Dose: Not Given Documented by: Pantoprazole Sodium (Protonix Iv) 40 mg IVPUSH Q24H PENDING SALE TO [facility] Last Admin: 08/01/20 13:38 Dose: 40 mg Documented by: Clozapine 200mg (Ptom) 0 each PO BEDTIME PENDING SALE TO [facility] Last Admin: 07/27/20 20:17 Dose: Not Given Documented by: Clozapine 200mg (Ptom) 0 each NGTUBE BEDTIME PENDING SALE TO [facility] Last Admin: 07/31/20 21:27 Dose: 1 each Documented by: Patient Own Medication (Ptom) 1 each PO BEDTIME PENDING SALE TO [facility] Last Admin: 08/02/20 19:24 Dose: Not Given Documented by: Clozapine 200 Mg Tab (*Pt Own Med*) 0 each PO ONETIME ONE Stop: 08/01/20 21:01 Last Admin: 08/01/20 20:22 Dose: 1 each Documented by: Polyethylene Glycol (Miralax) 17 gm PO DAILY PRN PRN Reason: Constipation Propofol (Diprivan 20 Ml) Confirm Administered Dose 200 mg .ROUTE .STK-MED ONE Stop: 07/27/20 07:06 Ropinirole HCl (Requip) 1 mg PO BEDTIME PENDING SALE TO [facility] Last Admin: 07/27/20 20:17 Dose: Not Given Documented by: Ropinirole HCl (Requip) 1 mg NGTUBE BEDTIME PENDING SALE TO [facility] Last Admin: 07/31/20 21:36 Dose: 1 mg Documented by: Scopolamine (Transderm-Scop) 1.5 mg TRDERM Q72H PENDING SALE TO [facility] Last Admin: 07/30/20 14:35 Dose: 1.5 mg Documented by: Sodium Chloride (Saline Flush) 10 ml FLUSH ONETIME PRN PRN Reason: PER RADIOLOGY PROTOCOL Last Admin: 07/23/20 14:00 Dose: 10 ml Documented by: Sodium Chloride (Saline Flush) 10 ml FLUSH ONETIME ONE Stop: 07/27/20 13:46 Last Admin: 07/27/20 15:06 Dose: 10 ml Documented by: Succinylcholine Chloride (Quelicin) Confirm Administered Dose 200 mg .ROUTE .STK-MED ONE Stop: 07/27/20 07:06 Tizanidine HCl (Zanaflex) 2 mg PO TID PENDING SALE TO [facility] Last Admin: 07/28/20 08:08 Dose: Not Given Documented by: Tizanidine HCl (Zanaflex) 2 mg PO TID PENDING SALE [facility] Last Admin: 08/04/20 08:43 Dose: 2 mg Documented by: - Exam General: Reports: Alert, Oriented, Cooperative, No Acute Distress Lungs: Reports: Clear to Auscultation, Normal Respiratory Effort, Decreased Breath Sounds Cardiovascular: Reports: Regular Rate, Regular Rhythm, No Murmurs GI/Abdominal Exam: Soft, Non-Tender, No Organomegaly, No Distention Extremities: Non-Tender, No Pedal Edema
== END 2020-08-07 16:05 | disposition home health service (06) | DRG 870 ==
LOC: JP.ED 09:45 → JP.ICU 15:10 → JP.ED 15:38
PROVIDERS: ADMIT Hospitalist; ATTEND Hospitalist
PROC: XW033N5 Introduction of Meropenem-vaborbactam Anti-infective into Peripheral Vein, Percutaneous Approach, New Technology Group 5 (ICD-10-PCS; principal; 2020-07-27)
PROC: 5A1955Z Respiratory Ventilation, Greater than 96 Consecutive Hours (ICD-10-PCS; 2020-07-27)
PROC: 03HY32Z Insertion of Monitoring Device into Upper Artery, Percutaneous Approach (ICD-10-PCS; 2020-07-27)
PROC: 4A133B1 Monitoring of Arterial Pressure, Peripheral, Percutaneous Approach (ICD-10-PCS; 2020-07-27)
PROC: 4A133J1 Monitoring of Arterial Pulse, Peripheral, Percutaneous Approach (ICD-10-PCS; 2020-07-27)
PROC: 0BH17EZ Insertion of Endotracheal Airway into Trachea, Via Natural or Artificial Opening (ICD-10-PCS; 2020-07-27)
DX: A41.9 Sepsis, unspecified organism (principal); J18.9 Pneumonia, unspecified organism; J80 Acute respiratory distress syndrome; Z87.01 Personal history of pneumonia (recurrent); N17.9 Acute kidney failure, unspecified; G89.29 Other chronic pain; M25.561 Pain in right knee; M25.512 Pain in left shoulder; F20.2 Catatonic schizophrenia; G47.00 Insomnia, unspecified; E87.0 Hyperosmolality and hypernatremia; Z20.828 Contact with and (suspected) exposure to other viral communicable diseases; E78.00 Pure hypercholesterolemia, unspecified; I10 Essential (primary) hypertension; Z90.710 Acquired absence of both cervix and uterus; Z98.890 Other specified postprocedural states; K21.9 Gastro-esophageal reflux disease without esophagitis; F32.9 Major depressive disorder, single episode, unspecified; E11.9 Type 2 diabetes mellitus without complications; E66.9 Obesity, unspecified; E55.9 Vitamin D deficiency, unspecified; Z87.891 Personal history of nicotine dependence; Z88.2 Allergy status to sulfonamides; Z88.8 Allergy status to other drugs, medicaments and biological substances; Z91.018 Allergy to other foods; Z79.84 Long term (current) use of oral hypoglycemic drugs; Z79.899 Other long term (current) drug therapy; Z68.38 Body mass index [BMI] 38.0-38.9, adult
CPT/HCPCS: 36415; 71045 ×2; 71275 ×2; 80053; 81001; 82803; 83605; 83615; 83735; 84100; 84145; 84484; 85025; 86140; 87040 ×2; 87804 ×2; 96365; 96367; 99285 ×2; J0456; J0696; J7030; J7050 ×3; Q9967; U0002; 36600; 51702; 80048; 80202; 82962; 85027; 87070; 87205; 94002; 94003; 94640; 94660; 94667; 94668; 97110-GP; 97116-GP; 97162-GP; 97530-GP; 97535-GP; A9270-GY; C9113; J0330; J0713; J1644; J1650; J1815; J1940; J1956; J2001; J2060; J2405; J2543; J2704; J3370; J3475; J3480; J7040; J7060; J7120

== ENCOUNTER 2020-08-15 17:59 | Emergency (ER) | payer MEDICARE, MEDICAID ==
--- NOTE | 2020-08-15 19:18 | EDM.PDOC ---
ED HPI GENERAL MEDICAL PROBLEM - General Chief Complaint: Cardiovascular Problem Stated Complaint: HIGH BLOOD PRESSURE Time Seen by Provider: 08/15/20 19:09 Source of Information: Reports: Patient History Limitations: Reports: No Limitations - History of Present Illness INITIAL COMMENTS - FREE TEXT/NARRATIVE: Patient presents describing sharp/stabbing central chest pain since 0900 today. No prior occurrence. Hasn't taken anything for symptoms. Rates the symptoms as 5/10 intensity. With some deep breaths, she thinks that the pain was a little worse. No fever or chills. No recent changes in illness history or medications. Onset: Sudden Duration: Hour(s): (10) Location: Reports: Chest Quality: Reports: Stabbing Severity: Mild Improves with: Reports: None Worsens with: Reports: None Associated Symptoms: Reports: No Other Symptoms Chest Pain Score (Numeric/FACES): 4 - Related Data Allergies Allergy/AdvReac Type Severity Reaction Status Date / Time divalproex sodium Allergy Other Verified 07/23/20 10:24 [From Depakote] haloperidol Allergy Other Verified 07/23/20 10:24 pork derived (porcine) Allergy Other Verified 07/23/20 16:07 risperidone Allergy Other Verified 07/23/20 10:24 Sulfa (Sulfonamide Allergy Cannot Verified 07/23/20 10:24 Antibiotics) Remember Home Meds: Home Meds Citalopram Hydrobromide [Celexa] 40 mg PO DAILY 07/23/20 [History] Gabapentin [Neurontin] 400 mg PO TID 07/23/20 [History] LORazepam [Ativan] 1 mg PO TID 07/23/20 [History] OLANZapine [Olanzapine] 15 mg PO DAILY 07/23/20 [History] Omeprazole 20 mg PO DAILY 07/23/20 [History] cloZAPine [Clozapine] 200 mg PO BEDTIME 07/23/20 [History] estradioL [Estradiol] 0.5 mg PO DAILY 07/23/20 [History] metFORMIN [Glucophage XR] 750 mg PO DAILY 07/23/20 [History] rOPINIRole [Requip] 1 mg PO BEDTIME 07/23/20 [History] tiZANidine 2 mg PO TID 07/23/20 [History] Past Medical History Cardiovascular History: Reports: High Cholesterol, Hypertension Respiratory History: Reports: Pneumonia, Recurrent Other Respiratory History: hospitalized with AFR111/2018 Gastrointestinal History: Reports: GERD Musculoskeletal History: Reports: Other (See Below) Other Musculoskeletal History: plantar fascitis. chronic left shoulder painchronic right knee pain Psychiatric History: Reports: Depression, Schizophrenia, Other (See Below) Other Psychiatric History: catatonia. insomnia Endocrine/Metabolic History: Reports: Diabetes, Type II, Obesity/BMI 30+ Hematologic History: Reports: Other (See Below) Other Hematologic History: vitamin D deficency Dermatologic History: Reports: Other (See Below) Other Dermatologic History: rash - Infectious Disease History Infectious Disease History: Reports: None - Past Surgical History Head Surgeries/Procedures: Reports: None Respiratory Surgical History: Reports: Other (See Below) Other Respiratory Surgeries/Procedures: bronchoscopy Female Surgical History: Reports: Hysterectomy Musculoskeletal Surgical History: Reports: Arthroscopic Knee Social & Family History - Caffeine Use Caffeine Use: Reports: Soda ED ROS GENERAL - Review of Systems Review Of Systems: See Below Constitutional: Reports: No Symptoms HEENT: Reports: No Symptoms Respiratory: Reports: Shortness of Breath, Pleuritic Chest Pain Cardiovascular: Reports: Chest Pain Endocrine: Reports: No Symptoms GI/Abdominal: Reports: No Symptoms Musculoskeletal: Reports: Shoulder Pain (Since taking deep breaths at time of exam.) Neurological: Reports: No Symptoms ED EXAM, GENERAL - Physical Exam Exam: See Below Free Text/Narrative:: This is an adult female interviewed and room 12. She is in no distress. Exam Limited By: No Limitations General Appearance: Alert, No Apparent Distress Nose: Normal Inspection Throat/Mouth: Normal Inspection Neck: Normal Inspection Respiratory/Chest: No Respiratory Distress, Lungs Clear, Other (Palpation of the anterior portion of the chest produces a slight increase in sharp central chest pain. She also states then that the pain radiates in a shooting fashion toward the left shoulder.) Cardiovascular: Regular Rate, Rhythm GI/Abdominal: Normal Bowel Sounds, Soft Extremities: Normal Inspection Neurological: Alert Psychiatric: Flat Affect EKG INTERPRETATION EKG Date: 08/15/20 Time: 19:30 Rhythm: NSR Rate (Beats/Min): 92 [place]: Normal P-Wave: Present QRS: Normal ST-T: Normal QT: Normal Course - Vital Signs Last Recorded V/S: Last Vital Signs Temp 36.9 C 08/15/20 19:19 Pulse 91 08/15/20 21:46 Resp 17 08/15/20 21:46 BP 157/83 H 08/15/20 21:46 Pulse Ox 94 L 08/15/20 21:46 - Orders/Labs/Meds Orders: Active Orders 24 hr Category Date Time Status Saline Lock Insert [OM.PC] Routine Oth 08/15/20 19:19 Ordered EKG 12 Lead [EK] Routine Ther 08/15/20 19:22 Ordered Labs: Laboratory Tests 08/15/20 08/15/20 Range/Units 19:50 19:50 WBC 7.0 (4.5-11.0) K/uL RBC 4.22 (3.30-5.50) M/uL Hgb 13.1 D (12.0-15.0) g/dL Hct 38.0 (36.0-48.0) % MCV 90 (80-98) fL MCH 31 (27-31) pg MCHC 35 (32-36) % Plt Count 380 (150-400) K/uL Neut % (Auto) 62 (36-66) % Lymph % (Auto) 25 (24-44) % [place] % (Auto) 10 H (2-6) % Eos % (Auto) 2 (2-4) % Baso % (Auto) 1 (0-1) % Sodium 139 L (140-148) mmol/L Potassium 4.4 (3.6-5.2) mmol/L Chloride 102 (100-108) mmol/L Carbon Dioxide 29 (21-32) mmol/L Anion Gap 12.4 (5.0-14.0) mmol/L BUN 13 D (7-18) mg/dL Creatinine 1.2 H (0.6-1.0) mg/dL Est Cr Clr Drug Dosing 52.74 mL/min Estimated GFR (MDRD) 49 L (>60) Glucose 110 H (74-106) mg/dL Calcium 9.4 (8.5-10.1) mg/dL Total Bilirubin 0.4 D (0.2-1.0) mg/dL AST 26 (15-37) U/L ALT 37 (12-78) U/L Alkaline Phosphatase 104 (46-116) U/L Troponin I < 0.017 (0.000-0.056) ng/mL Total Protein 7.3 (6.4-8.2) g/dL Albumin 3.2 L (3.4-5.0) g/dL Globulin 4.1 H (2.3-3.5) g/dL Albumin/Globulin Ratio 0.8 L (1.2-2.2) Meds: Medications Discontinued Medications Generic Name Dose Route Start Last Admin Trade Name Beverly PRN Reason Stop Dose Admin Aspirin 324 mg 08/15/20 19:19 08/15/20 19:53 Aspirin PO 08/15/20 19:20 324 mg ONETIME ONE Administration Sodium Chloride 10 ml 08/15/20 19:19 Saline Flush FLUSH ASDIRECTED PRN Keep Vein Open - Re-Assessments/Exams Free Text/Narrative Re-Assessment/Exam: 08/15/20 19:26 Patient will be given aspirin 324 mg. Will look at EKG and chest imaging. 08/16/20 04:28 I returned later to review test results which show normal lab work and x-ray and EKG. She no longer has the previously noted stabbing pain and feels as though she is ready to go home. If the symptoms return, so should she need to the emergency department. She was discharged in stable, ambulatory condition. Departure - Departure Time of Disposition: 22:26 Disposition: Home, Self-Care 01 Condition: Good Clinical Impression: Essential hypertension Chest pain Qualifiers: Chest pain type: other chest pain Qualified Code(s): R07.89 - Other chest pain Instructions: Hypertension, Adult, [id number] Referrals: Crystal Loza MD [Primary Care Provider] - Forms: ED Department Discharge Additional Instructions: Continue current medications. Avoid excessively salty foods. If needed, contact your primary care team to discuss monitoring your heart rate and blood pressure at home for a period of time. Return to ER if feeling worse. Sepsis Event Note (ED) - Focused Exam Vital Signs: Vital Signs Temp Pulse Resp BP Pulse Ox 08/15/20 21:46 91 17 157/83 H 94 L 08/15/20 20:57 88 16 149/95 H 95 08/15/20 19:54 90 16 163/94 H 94 L 08/15/20 19:19 36.9 C 91 16 156/96 H 96 08/15/20 18:59 36.9 C 91 16 156/96 H 96 - My Orders Last 24 Hours: My Active Orders 08/15/20 19:19 Saline Lock Insert [OM.PC] Routine 08/15/20 19:22 EKG 12 Lead [EK] Routine - Assessment/Plan Last 24 Hours: My Active Orders 08/15/20 19:19 Saline Lock Insert [OM.PC] Routine 08/15/20 19:22 EKG 12 Lead [EK] Routine
[2020-08-15] MEDS ORDERED: Sodium Chloride 0.9% 10 ML Syringe FLUSH PRN (19:19)
[2020-08-15] MEDS ORDERED: Aspirin 81 MG Tab.Chew PO ONE (19:19)
--- NOTE | 2020-08-15 20:53 | CRLCR ---
INDICATION: Chest pain COMPARISON: 07/31/2020 TECHNIQUE: PA and lateral views of the chest were acquired FINDINGS: TUBES AND LINES: None. HEART AND MEDIASTINUM: The heart size is normal. The mediastinal contour appears normal for patient age. LUNGS AND PLEURAL SPACES: The lungs appear normal.There pleural spaces are unremarkable. OSSEOUS STRUCTURES: Age-appropriate appearance. No acute focal finding. IMPRESSION: No evidence of active pulmonary disease. Dictated by Pedro Luis Mata MD @ Aug 15 2020 8:51PM Signed by Dr. Pedro Luis Mata @ Aug 15 2020 8:52PM
== END 2020-08-15 22:50 | disposition home or self-care (01) ==
LOC: JP.ED 17:59
DX: I10 Essential (primary) hypertension (principal); R07.89 Other chest pain; K21.9 Gastro-esophageal reflux disease without esophagitis; F32.9 Major depressive disorder, single episode, unspecified; F20.9 Schizophrenia, unspecified; E11.9 Type 2 diabetes mellitus without complications; E66.9 Obesity, unspecified; Z68.41 Body mass index [BMI] 40.0-44.9, adult; Z88.8 Allergy status to other drugs, medicaments and biological substances; Z91.018 Allergy to other foods; Z88.2 Allergy status to sulfonamides; Z79.899 Other long term (current) drug therapy; Z79.84 Long term (current) use of oral hypoglycemic drugs
CPT/HCPCS: 36415; 71046; 80053; 84484; 85025; 93005; 99285; A9270; 93010; 99283

== ENCOUNTER 2020-11-25 11:14 | Emergency (ER) | payer OTHER, MEDICARE, MEDICAID ==
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
[2020-11-25] MEDS: Ketorolac 60 MG/2 ML SDV IM ONE (12:20)
[2020-11-25] MEDS: Cyclobenzaprine 10 MG Tab PO ONE (12:22)
--- NOTE | 2020-11-25 13:47 | CT ---
Cervical Spine wo Cont CT CLINICAL HISTORY: Pain and stiffness FINDINGS: The vertebral body heights are intact. The disc spaces are well-maintained. There is no significant spondylosis. Alignment is maintained. Prevertebral soft tissues are unremarkable. Odontoid and spinous processes are intact. Pedicles appear intact. There are a few scattered small lymph nodes bilaterally which are nonspecific. IMPRESSION: No fracture or dislocation
== END 2020-11-25 13:00 | disposition home or self-care (01) ==
LOC: JP.ED 11:14
DX: S16.1XXA Strain of muscle, fascia and tendon at neck level, initial encounter (principal); I10 Essential (primary) hypertension; E11.9 Type 2 diabetes mellitus without complications; E66.9 Obesity, unspecified; K21.9 Gastro-esophageal reflux disease without esophagitis; Z68.41 Body mass index [BMI] 40.0-44.9, adult; Z88.2 Allergy status to sulfonamides; Z88.8 Allergy status to other drugs, medicaments and biological substances; Z79.84 Long term (current) use of oral hypoglycemic drugs; Z79.899 Other long term (current) drug therapy; V53.6XXA Passenger in pick-up truck or van injured in collision with car, pick-up truck or van in traffic accident, initial encounter
CPT/HCPCS: 72125; 72125-26; 96372; 99284-25; A9270-GY; J1885

== ENCOUNTER 2021-07-15 09:52 | Inpatient (IN) | payer MEDICARE, MEDICAID ==
[2021-07-15] MEDS ORDERED: Levofloxacin/Dextrose 5%-Water 750 MG in Premix Bag 1 BAG IV SCH (10:30)
[2021-07-15] MEDS ORDERED: Lactated Ringers 1,000 ML IV SCH (10:30)
--- NOTE | 2021-07-15 10:34 | EDM.PDOC ---
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 She states she was concerned because of her symptoms she awoke this morning wanted to be evaluated right away. She did have a Covid exposure. - Related Data Allergies Allergy/AdvReac Type Severity Reaction Status Date / Time divalproex sodium Allergy Swelling Verified 07/15/21 10:01 [From Depakote] haloperidol Allergy Other Verified 07/15/21 10:01 pork derived (porcine) Allergy Other Verified 07/15/21 10:01 risperidone Allergy Other Verified 07/15/21 10:01 Sulfa (Sulfonamide Allergy Hives Verified 07/15/21 10:01 Antibiotics) Home Meds: Home Meds Citalopram Hydrobromide [Celexa] 40 mg PO DAILY 07/23/20 [History] Gabapentin [Neurontin] 400 mg PO TID 07/23/20 [History] OLANZapine [Olanzapine] 15 mg PO BID 07/23/20 [History] Omeprazole 20 mg PO DAILY 07/23/20 [History] cloZAPine [Clozapine] 200 mg PO BEDTIME 07/23/20 [History] estradioL [Estradiol] 1.5 mg PO DAILY 07/23/20 [History] metFORMIN [Glucophage XR] 750 mg PO DAILY 07/23/20 [History] rOPINIRole [Requip] 1 mg PO BEDTIME 07/23/20 [History] tiZANidine 2 mg PO TID 07/23/20 [History] lisinopriL [Prinivil] 2.5 mg PO BID 11/25/20 [History] ALPRAZolam [Xanax] 1 mg PO TID 07/15/21 [History] Dulaglutide [Trulicity] 0.75 mg SQ WEEKLY 07/15/21 [History] Ergocalciferol (Vitamin D2) [Vitamin D2] 1.25 mg PO WEEKLY 07/15/21 [History] polyethylene glycoL 3350 [MiraLAX] 17 gm PO DAILY 07/15/21 [History] Past Medical History Cardiovascular History: Reports: High Cholesterol, Hypertension Respiratory History: Reports: Intubation, Previous, Pneumonia, Recurrent Other Respiratory History: hospitalized with [id number] Gastrointestinal History: Reports: GERD Musculoskeletal History: Reports: Other (See Below) Other Musculoskeletal History: plantar fascitis. chronic left shoulder painchronic right knee pain Psychiatric History: Reports: Depression, Schizophrenia, Other (See Below) Other Psychiatric History: catatonia. insomnia Endocrine/Metabolic History: Reports: Diabetes, Type II, Obesity/BMI 30+ Hematologic History: Reports: Other (See Below) Other Hematologic History: vitamin D deficency Dermatologic History: Reports: Other (See Below) Other Dermatologic History: rash - Infectious Disease History Infectious Disease History: Reports: None - Past Surgical History Head Surgeries/Procedures: Reports: None HEENT Surgical History: Reports: Tonsillectomy Respiratory Surgical History: Reports: Other (See Below) Other Respiratory Surgeries/Procedures: bronchoscopy Female Surgical History: Reports: Hysterectomy Musculoskeletal Surgical History: Reports: Arthroscopic Knee Social & Family History - Tobacco Use Tobacco Use Status *Q: Never Tobacco User Second Hand Smoke Exposure: No - Caffeine Use Caffeine Use: Reports: Soda - Recreational Drug Use Recreational Drug Use: No ED ROS GENERAL - Review of Systems Review Of Systems: See Below Constitutional: Denies: Fever, Chills HEENT: Reports: No Symptoms Respiratory: Reports: Shortness of Breath, Cough. Denies: Wheezing, Sputum Cardiovascular: Reports: Dyspnea on Exertion GI/Abdominal: Reports: No Symptoms ED EXAM, GENERAL - Physical Exam Exam: See Below Exam Limited By: No Limitations General Appearance: Alert, WD/WN, No Apparent Distress Respiratory/Chest: No Respiratory Distress, Lungs Clear, Normal Breath Sounds, No Accessory Muscle Use, Chest Non-Tender Cardiovascular: Regular Rate, Rhythm, No Murmur GI/Abdominal: Soft, Non-Tender #1 Interpretation EKG Date: 07/15/21 Time: 11:55 Rhythm: NSR [place]: Normal P-Wave: Present QRS: Normal ST-T: Normal QT: Normal Comparison: NA - No Prior EKG Course - Vital Signs Last Recorded V/S: Last Vital Signs Temp 97 F 07/15/21 10:24 Pulse 103 H 07/15/21 10:30 Resp 16 07/15/21 10:30 BP 118/71 07/15/21 10:30 Pulse Ox 96 07/15/21 10:30 - Orders/Labs/Meds Orders: Active Orders 24 hr Category Date Time Status Vital Signs [RC] Q1H Care 07/15/21 10:30 Active Chest 2V [CR] Urgent Exams 07/15/21 10:32 Taken CULTURE BLOOD [BC] Urgent Lab 07/15/21 10:41 Received CULTURE BLOOD [BC] Urgent Lab 07/15/21 11:02 Received REFLEX LACTIC ACID YES OR NO [CHEM] Routine Lab 07/15/21 11:20 Received TROPONIN I [CHEM] Stat Lab 07/15/21 10:41 Received UA W/MICROSCOPIC [URIN] Urgent Lab 07/15/21 10:30 Ordered Lactated Ringers [Ringers, Lactated] 1,000 ml Med 07/15/21 10:30 Active IV ASDIRECTED Levofloxacin/Dextrose 5%-Water [Levaquin in D5W 750 MG/ Med 07/15/21 10:30 Active 150 ML] 750 mg Premix Bag 1 bag IV Q24H Blood Culture x2 Reflex Set [OM.PC] Urgent Oth 07/15/21 10:30 Ordered EKG 12 Lead [EK] Stat Ther 07/15/21 10:32 Ordered Medication Orders Lactated Ringer's (Ringers, Lactated) 1,000 mls @ 999 mls/hr IV ASDIRECTED [facility] Last Admin: 07/15/21 10:47 Dose: 999 mls/hr Documented by: JUICE Levofloxacin/Dextrose 750 mg/ (Premix) 150 mls @ 100 mls/hr IV Q24H [facility] Last Admin: 07/15/21 10:47 Dose: 100 mls/hr Documented by: JUICE Labs: Laboratory Tests 07/15/21 07/15/21 07/15/21 Range/Units 10:07 10:35 10:41 WBC 25.0 H (4.5-11.0) K/uL RBC 4.33 (3.30-5.50) M/uL Hgb 13.9 (12.0-15.0) g/dL Hct 40.9 (36.0-48.0) % MCV 95 (80-98) fL MCH 32 H (27-31) pg MCHC 34 (32-36) % Plt Count 334 (150-400) K/uL Neut % (Auto) 90.0 H (36-66) % Lymph % (Auto) 5.1 L (24-44) % [place] % (Auto) 4.4 (2-6) % Eos % (Auto) 0.3 L (2-4) % Baso % (Auto) 0.2 (0-1) % Puncture Site Rt radial ABG pH 7.441 (7.350-7.450) ABG pCO2 34.1 L (35.0-42.0) mmHg ABG pO2 83.3 (75.0-100.0) mmHg ABG HCO3 22.9 (22.0-26.0) mmol/L ABG Total CO2 19.9 L (21.0-25.0) mmol/L ABG O2 Saturation 97.2 (95.0-98.0) % ABG O2 Content 18.7 (15.0-23.0) %vol ABG Base Excess -0.2 mm/L ABG Hemoglobin 14.1 (12.0-16.0) g/dL ABG Oxyhemoglobin 94.2 % ABG Carboxyhemoglobin 2.1 H (0.0-1.6) % ABG Methemoglobin 1.0 % Ramy Test Passed O2 Delivery Device Nasal cannula Oxygen Flow Rate 2.0 L Sodium (140-148) mmol/L Potassium (3.6-5.2) mmol/L Chloride (100-108) mmol/L Carbon Dioxide (21-32) mmol/L Anion Gap (5.0-14.0) mmol/L BUN (7-18) mg/dL Creatinine (0.6-1.0) mg/dL Est Cr Clr Drug Dosing mL/min Estimated GFR (MDRD) (>60) Glucose (74-106) mg/dL Lactic Acid (0.4-2.0) mmol/L Calcium (8.5-10.1) mg/dL Total Bilirubin (0.2-1.0) mg/dL AST (15-37) U/L ALT (12-78) U/L Alkaline Phosphatase (46-116) U/L C-Reactive Protein (0.0-0.3) mg/dL Total Protein (6.4-8.2) g/dL Albumin (3.4-5.0) g/dL Globulin (2.3-3.5) g/dL Albumin/Globulin Ratio (1.2-2.2) Procalcitonin ng/mL SARS CoV-2 RNA Rapid BAILEY Negative 07/15/21 07/15/21 07/15/21 Range/Units 10:41 10:41 10:41 WBC (4.5-11.0) K/uL RBC (3.30-5.50) M/uL Hgb (12.0-15.0) g/dL Hct (36.0-48.0) % MCV (80-98) fL MCH (27-31) pg MCHC (32-36) % Plt Count (150-400) K/uL Neut % (Auto) (36-66) % Lymph % (Auto) (24-44) % [place] % (Auto) (2-6) % Eos % (Auto) (2-4) % Baso % (Auto) (0-1) % Puncture Site ABG pH (7.350-7.450) ABG pCO2 (35.0-42.0) mmHg ABG pO2 (75.0-100.0) mmHg ABG HCO3 (22.0-26.0) mmol/L ABG Total CO2 (21.0-25.0) mmol/L ABG O2 Saturation (95.0-98.0) % ABG O2 Content (15.0-23.0) %vol ABG Base Excess mm/L ABG Hemoglobin (12.0-16.0) g/dL ABG Oxyhemoglobin % ABG Carboxyhemoglobin (0.0-1.6) % ABG Methemoglobin % Ramy Test O2 Delivery Device Oxygen Flow Rate L Sodium 137 L (140-148) mmol/L Potassium 4.2 (3.6-5.2) mmol/L Chloride 101 (100-108) mmol/L Carbon Dioxide 24 (21-32) mmol/L Anion Gap 16.2 H (5.0-14.0) mmol/L BUN 16 (7-18) mg/dL Creatinine 0.8 (0.6-1.0) mg/dL Est Cr Clr Drug Dosing 81.59 mL/min Estimated GFR (MDRD) > 60 (>60) Glucose 141 H (74-106) mg/dL Lactic Acid 2.4 H (0.4-2.0) mmol/L Calcium 8.7 (8.5-10.1) mg/dL Total Bilirubin 0.5 (0.2-1.0) mg/dL AST 56 H D (15-37) U/L ALT 49 (12-78) U/L Alkaline Phosphatase 162 H (46-116) U/L C-Reactive Protein 1.96 H (0.0-0.3) mg/dL Total Protein 6.4 (6.4-8.2) g/dL Albumin 3.0 L (3.4-5.0) g/dL Globulin 3.4 (2.3-3.5) g/dL Albumin/Globulin Ratio 0.9 L (1.2-2.2) Procalcitonin < 0.05 ng/mL SARS CoV-2 RNA Rapid BAILEY Meds: Medications Generic Name Dose Route Start Last Admin Trade Name Freq PRN Reason Stop Dose Admin Lactated Ringer's 1,000 mls @ 999 mls/hr 07/15/21 10:30 07/15/21 10:47 Ringers, Lactated IV 999 mls/hr ASDIRECTED LESLEY Administration Levofloxacin/Dextrose 750 mg/ 150 mls @ 100 mls/hr 07/15/21 10:30 07/15/21 10:47 Premix IV 100 mls/hr Q24H LESLEY Administration Departure - Departure Time of Disposition: 11:57 Disposition: Admitted As Inpatient 64 Condition: Fair Clinical Impression: Community acquired pneumonia Qualifiers: Laterality: unspecified laterality Qualified Code(s): J18.9 - Pneumonia, unspecified organism - Discharge Information Referrals: PCP,None [Primary Care Provider] - Forms: ED Department Discharge Sepsis Event Note (ED) - Evaluation Sepsis Screening Result: No Definite Risk - Focused Exam Vital Signs: Vital Signs Temp Pulse Resp BP Pulse Ox 07/15/21 10:30 103 H 16 118/71 96 07/15/21 10:24 97 F 104 H 18 118/71 87 L - My Orders Last 24 Hours: My Active Orders 07/15/21 10:30 Vital Signs [RC] Q1H UA W/MICROSCOPIC [URIN] Urgent Lactated Ringers [Ringers, Lactated] 1,000 ml IV ASDIRECTED Levofloxacin/Dextrose 5%-Water [Levaquin in D5W 750 MG/150 ML] 750 mg Premix Bag 1 bag IV Q24H Blood Culture x2 Reflex Set [OM.PC] Urgent 07/15/21 10:32 Chest 2V [CR] Urgent EKG 12 Lead [EK] Stat 07/15/21 10:41 CULTURE BLOOD [BC] Urgent TROPONIN I [CHEM] Stat 07/15/21 11:02 CULTURE BLOOD [BC] Urgent 07/15/21 11:20 REFLEX LACTIC ACID YES OR NO [CHEM] Routine - Assessment/Plan Last 24 Hours: My Active Orders 07/15/21 10:30 Vital Signs [RC] Q1H UA W/MICROSCOPIC [URIN] Urgent Lactated Ringers [Ringers, Lactated] 1,000 ml IV ASDIRECTED Levofloxacin/Dextrose 5%-Water [Levaquin in D5W 750 MG/150 ML] 750 mg Premix Bag 1 bag IV Q24H Blood Culture x2 Reflex Set [OM.PC] Urgent 07/15/21 10:32 Chest 2V [CR] Urgent EKG 12 Lead [EK] Stat 07/15/21 10:41 CULTURE BLOOD [BC] Urgent TROPONIN I [CHEM] Stat 07/15/21 11:02 CULTURE BLOOD [BC] Urgent 07/15/21 11:20 REFLEX LACTIC ACID YES OR NO [CHEM] Routine Plan: Assessment Acuity = acute Site and laterality = community-acquired pneumonia with hypoxia Etiology = probable bacterial cause Manifestations = hypoxemia Location of injury = Home Lab values = WBC elevated 25.0 consistent with leukocytosis, ABG reveals pH 7.44 PCO2 34.1 PO2 83 and bicarb 22.9 lactic acid slightly elevated 2.4 AST elevated 56 CRP slightly elevated 1.96 procalcitonin was negative Covid negative chest x-ray official read radiologist pending Plan Call discussed case hospitalist on-call who kindly agreed to come evaluate patient emergency department for admission 1150 blood cultures have been done antibiotics Levaquin initiated in the emergency department This note was dictated using [employer] voice recognition software please call with any questions on syntax or grammar.
--- NOTE | 2021-07-15 12:51 | CR ---
CHEST: 2 view CLINICAL HISTORY:Hypoxia COMPARISON:2019 FINDINGS: There are some patchy densities in both lower lobes. There is a change since prior study. Heart size and pulmonary vascular are normal. There are no effusions Impression: Faint diffuse patchy bilateral infiltrates. This may represent a pneumonitis
[2021-07-15] MEDS ORDERED: Lactated Ringers 1,000 ML IV ONE (12:53)
[2021-07-15] MEDS ORDERED: OLANZapine 5 MG Tab PO ONE (13:38)
[2021-07-15] MEDS ORDERED: Acetaminophen 325 MG Tab PO ONE (13:38)
--- NOTE | 2021-07-15 13:52 | PCM.HP.2 ---
H&P History of Present Illness - General Date of Service: 07/15/21 Admit Problem/Dx: Admission Diagnosis/Problem Admission Diagnosis/Problem Right lower lobe pneumonia Source of Information: Patient, Provider History Limitations: Reports: No Limitations - History of Present Illness Initial Comments - Free Text/Narative: CC: I woke up feeling cruddy HPI: Guerita presents to the emergency room today after waking up feeling "cruddy". She reports feeling well yesterday and had no issues at bedtime last night. She woke up this morning with diffuse muscle aches as well as subjective fevers and chills. She did not have any appetite this morning. She may be feels a little short of breath but has not been coughing. She does not report any nausea or vomiting. No change in bowel or bladder habits. No chest pain. No joint pain. She did report a Covid contact within the last couple of weeks and was worried that may be what she had. She has not last lost her taste or smell. No sore throat. Work-up in the emergency room revealed probable right lower lung pneumonia with acute respiratory failure with hypoxia. Currently requiring 2 L of oxygen. White count is elevated at 25,000. There is evidence for sepsis with elevated lactic acid, tachycardia and respiratory failure. She has received 2 L of IV fluid, cultures have been obtained and she has received some IV antibiotics. - Related Data Allergies/Adverse Reactions: Allergies Allergy/AdvReac Type Severity Reaction Status Date / Time divalproex sodium Allergy Swelling Verified 07/15/21 10:01 [From Depakote] haloperidol Allergy Other Verified 07/15/21 10:01 pork derived (porcine) Allergy Other Verified 07/15/21 10:01 risperidone Allergy Other Verified 07/15/21 10:01 Sulfa (Sulfonamide Allergy Hives Verified 07/15/21 10:01 Antibiotics) Home Medications: Home Meds Citalopram Hydrobromide [Celexa] 40 mg PO DAILY 07/23/20 [History] Gabapentin [Neurontin] 400 mg PO TID 07/23/20 [History] OLANZapine [Olanzapine] 15 mg PO BID 07/23/20 [History] Omeprazole 20 mg PO DAILY 07/23/20 [History] cloZAPine [Clozapine] 200 mg PO BEDTIME 07/23/20 [History] estradioL [Estradiol] 1.5 mg PO DAILY 07/23/20 [History] metFORMIN [Glucophage XR] 750 mg PO DAILY 07/23/20 [History] rOPINIRole [Requip] 1 mg PO BEDTIME 07/23/20 [History] tiZANidine 2 mg PO TID 07/23/20 [History] lisinopriL [Prinivil] 2.5 mg PO BID 11/25/20 [History] ALPRAZolam [Xanax] 1 mg PO TID 07/15/21 [History] Dulaglutide [Trulicity] 0.75 mg SQ WEEKLY 07/15/21 [History] Ergocalciferol (Vitamin D2) [Vitamin D2] 1.25 mg PO WEEKLY 07/15/21 [History] polyethylene glycoL 3350 [MiraLAX] 17 gm PO DAILY 07/15/21 [History] Past Medical History Cardiovascular History: Reports: High Cholesterol, Hypertension Respiratory History: Reports: Intubation, Previous, Pneumonia, Recurrent Other Respiratory History: hospitalized with AFR111/2018 Gastrointestinal History: Reports: GERD Musculoskeletal History: Reports: Other (See Below) Other Musculoskeletal History: plantar fascitis. chronic left shoulder painchronic right knee pain Psychiatric History: Reports: Depression, Schizophrenia, Other (See Below) Other Psychiatric History: catatonia. insomnia Endocrine/Metabolic History: Reports: Diabetes, Type II, Obesity/BMI 30+ Hematologic History: Reports: Other (See Below) Other Hematologic History: vitamin D deficency Dermatologic History: Reports: Other (See Below) Other Dermatologic History: rash - Infectious Disease History Infectious Disease History: Reports: None - Past Surgical History Head Surgeries/Procedures: Reports: None HEENT Surgical History: Reports: Tonsillectomy Respiratory Surgical History: Reports: Other (See Below) Other Respiratory Surgeries/Procedures: bronchoscopy Female Surgical History: Reports: Hysterectomy Musculoskeletal Surgical History: Reports: Arthroscopic Knee Social & Family History - Family History Respiratory: Denies: COPD - Tobacco Use Tobacco Use Status *Q: Never Tobacco User Second Hand Smoke Exposure: No - Caffeine Use Caffeine Use: Reports: Soda - Recreational Drug Use Recreational Drug Use: No H&P Review of Systems - Review of Systems: Review Of Systems: See Below Free Text/Narrative: A complete 12 point review of systems was obtained. Pertinent positives and negatives are noted in the history of present illness. All other systems were reviewed and were negative except as noted. Exam - Exam Exam: See Below - Vital Signs Vital Signs: Last Vital Signs Temp 36.1 C 07/15/21 10:24 Pulse 97 07/15/21 12:30 Resp 16 07/15/21 10:30 BP 139/92 H 07/15/21 12:30 Pulse Ox 92 L 07/15/21 12:30 Weight: 122.47 kg - Exam Quality Assessment: Supplemental Oxygen General: Alert, Oriented, Cooperative. No: Mild Distress HEENT: Mucosa Moist & [place]. No: Scleral Icterus Neck: Supple. No: Lymphadenopathy Lungs: Normal Respiratory Effort, Crackles (right lung base ) Cardiovascular: Regular Rhythm, Tachycardia. No: Systolic Murmur GI/Abdominal Exam: Normal Bowel Sounds, Soft, No Distention, Tender (mild diffuse) Back Exam: Normal Inspection, Full Range of Motion Extremities: No Pedal Edema. No: Increased Warmth Peripheral Pulses: 2+: Dorsalis Pedis (L), Dorsalis Pedis (R) Skin: Warm, Dry Neuro Extensive - Mental Status: Alert, Oriented x3, Nl Response to Commands Neuro Extensive - Motor, Sensory, Reflexes: No: Dysarthria, Abnormal Motor, [place] mor Psychiatric: Alert, Normal Affect - Patient Data Lab Results Last 24 hrs: Laboratory Results - last 24 hr 07/15/21 07/15/21 07/15/21 Range/Units 10:07 10:30 10:35 WBC (4.5-11.0) K/uL RBC (3.30-5.50) M/uL Hgb (12.0-15.0) g/dL Hct (36.0-48.0) % MCV (80-98) fL MCH (27-31) pg MCHC (32-36) % Plt Count (150-400) K/uL Neut % (Auto) (36-66) % Lymph % (Auto) (24-44) % Lee % (Auto) (2-6) % Eos % (Auto) (2-4) % Baso % (Auto) (0-1) % Puncture Site Rt radial ABG pH 7.441 (7.350-7.450) ABG pCO2 34.1 L (35.0-42.0) mmHg ABG pO2 83.3 (75.0-100.0) mmHg ABG HCO3 22.9 (22.0-26.0) mmol/L ABG Total CO2 19.9 L (21.0-25.0) mmol/L ABG O2 Saturation 97.2 (95.0-98.0) % ABG O2 Content 18.7 (15.0-23.0) %vol ABG Base Excess -0.2 mm/L ABG Hemoglobin 14.1 (12.0-16.0) g/dL ABG Oxyhemoglobin 94.2 % ABG Carboxyhemoglobin 2.1 H (0.0-1.6) % ABG Methemoglobin 1.0 % Ramy Test Passed O2 Delivery Device Nasal cannula Oxygen Flow Rate 2.0 L Sodium (140-148) mmol/L Potassium (3.6-5.2) mmol/L Chloride (100-108) mmol/L Carbon Dioxide (21-32) mmol/L Anion Gap (5.0-14.0) mmol/L BUN (7-18) mg/dL Creatinine (0.6-1.0) mg/dL Est Cr Clr Drug Dosing mL/min Estimated GFR (MDRD) (>60) Glucose (74-106) mg/dL Lactic Acid (0.4-2.0) mmol/L Calcium (8.5-10.1) mg/dL Total Bilirubin (0.2-1.0) mg/dL AST (15-37) U/L ALT (12-78) U/L Alkaline Phosphatase (46-116) U/L Troponin I (0.000-0.056) ng/mL C-Reactive Protein (0.0-0.3) mg/dL Total Protein (6.4-8.2) g/dL Albumin (3.4-5.0) g/dL Globulin (2.3-3.5) g/dL Albumin/Globulin Ratio (1.2-2.2) Procalcitonin ng/mL Urine Color Yellow (YELLOW) Urine Appearance Clear (CLEAR) Urine pH 6.5 (5.0-8.0) Ur Specific [place] 1.025 (1.008-1.030) Urine Protein 30 H (NEGATIVE) mg/dL Urine Glucose (UA) Negative (NEGATIVE) mg/dL Urine Ketones Negative (NEGATIVE) mg/dL Urine Occult Blood Negative (NEGATIVE) Urine Nitrite Negative (NEGATIVE) Urine Bilirubin Small H (NEGATIVE) Urine Urobilinogen 2.0 H (0.2-1.0) EU/dL Ur Leukocyte Esterase Negative (NEGATIVE) Urine RBC 0-5 (0-5) Urine WBC 0-5 (0-5) Ur Epithelial Cells Few Amorphous Sediment Occasional Urine Bacteria Few Urine Mucus Many SARS CoV-2 RNA Rapid BAILEY Negative 07/15/21 07/15/21 07/15/21 Range/Units 10:41 10:41 10:41 WBC 25.0 H (4.5-11.0) K/uL RBC 4.33 (3.30-5.50) M/uL Hgb 13.9 (12.0-15.0) g/dL Hct 40.9 (36.0-48.0) % MCV 95 (80-98) fL MCH 32 H (27-31) pg MCHC 34 (32-36) % Plt Count 334 (150-400) K/uL Neut % (Auto) 90.0 H (36-66) % Lymph % (Auto) 5.1 L (24-44) % Lee % (Auto) 4.4 (2-6) % Eos % (Auto) 0.3 L (2-4) % Baso % (Auto) 0.2 (0-1) % Puncture Site ABG pH (7.350-7.450) ABG pCO2 (35.0-42.0) mmHg ABG pO2 (75.0-100.0) mmHg ABG HCO3 (22.0-26.0) mmol/L ABG Total CO2 (21.0-25.0) mmol/L ABG O2 Saturation (95.0-98.0) % ABG O2 Content (15.0-23.0) %vol ABG Base Excess mm/L ABG Hemoglobin (12.0-16.0) g/dL ABG Oxyhemoglobin % ABG Carboxyhemoglobin (0.0-1.6) % ABG Methemoglobin % Ramy Test O2 Delivery Device Oxygen Flow Rate L Sodium 137 L (140-148) mmol/L Potassium 4.2 (3.6-5.2) mmol/L Chloride 101 (100-108) mmol/L Carbon Dioxide 24 (21-32) mmol/L Anion Gap 16.2 H (5.0-14.0) mmol/L BUN 16 (7-18) mg/dL Creatinine 0.8 (0.6-1.0) mg/dL Est Cr Clr Drug Dosing 81.59 mL/min Estimated GFR (MDRD) > 60 (>60) Glucose 141 H (74-106) mg/dL Lactic Acid 2.4 H (0.4-2.0) mmol/L Calcium 8.7 (8.5-10.1) mg/dL Total Bilirubin 0.5 (0.2-1.0) mg/dL AST 56 H D (15-37) U/L ALT 49 (12-78) U/L Alkaline Phosphatase 162 H (46-116) U/L Troponin I (0.000-0.056) ng/mL C-Reactive Protein 1.96 H (0.0-0.3) mg/dL Total Protein 6.4 (6.4-8.2) g/dL Albumin 3.0 L (3.4-5.0) g/dL Globulin 3.4 (2.3-3.5) g/dL Albumin/Globulin Ratio 0.9 L (1.2-2.2) Procalcitonin ng/mL Urine Color (YELLOW) Urine Appearance (CLEAR) Urine pH (5.0-8.0) Ur Specific [place] (1.008-1.030) Urine Protein (NEGATIVE) mg/dL Urine Glucose (UA) (NEGATIVE) mg/dL Urine Ketones (NEGATIVE) mg/dL Urine Occult Blood (NEGATIVE) Urine Nitrite (NEGATIVE) Urine Bilirubin (NEGATIVE) Urine Urobilinogen (0.2-1.0) EU/dL Ur Leukocyte Esterase (NEGATIVE) Urine RBC (0-5) Urine WBC (0-5) Ur Epithelial Cells Amorphous Sediment Urine Bacteria Urine Mucus SARS CoV-2 RNA Rapid BAILEY 07/15/21 07/15/21 Range/Units 10:41 10:41 WBC (4.5-11.0) K/uL RBC (3.30-5.50) M/uL Hgb (12.0-15.0) g/dL Hct (36.0-48.0) % MCV (80-98) fL MCH (27-31) pg MCHC (32-36) % Plt Count (150-400) K/uL Neut % (Auto) (36-66) % Lymph % (Auto) (24-44) % Lee % (Auto) (2-6) % Eos % (Auto) (2-4) % Baso % (Auto) (0-1) % Puncture Site ABG pH (7.350-7.450) ABG pCO2 (35.0-42.0) mmHg ABG pO2 (75.0-100.0) mmHg ABG HCO3 (22.0-26.0) mmol/L ABG Total CO2 (21.0-25.0) mmol/L ABG O2 Saturation (95.0-98.0) % ABG O2 Content (15.0-23.0) %vol ABG Base Excess mm/L ABG Hemoglobin (12.0-16.0) g/dL ABG Oxyhemoglobin % ABG Carboxyhemoglobin (0.0-1.6) % ABG Methemoglobin % Ramy Test O2 Delivery Device Oxygen Flow Rate L Sodium (140-148) mmol/L Potassium (3.6-5.2) mmol/L Chloride (100-108) mmol/L Carbon Dioxide (21-32) mmol/L Anion Gap (5.0-14.0) mmol/L BUN (7-18) mg/dL Creatinine (0.6-1.0) mg/dL Est Cr Clr Drug Dosing mL/min Estimated GFR (MDRD) (>60) Glucose (74-106) mg/dL Lactic Acid (0.4-2.0) mmol/L Calcium (8.5-10.1) mg/dL Total Bilirubin (0.2-1.0) mg/dL AST (15-37) U/L ALT (12-78) U/L Alkaline Phosphatase (46-116) U/L Troponin I < 0.017 (0.000-0.056) ng/mL C-Reactive Protein (0.0-0.3) mg/dL Total Protein (6.4-8.2) g/dL Albumin (3.4-5.0) g/dL Globulin (2.3-3.5) g/dL Albumin/Globulin Ratio (1.2-2.2) Procalcitonin < 0.05 ng/mL Urine Color (YELLOW) Urine Appearance (CLEAR) Urine pH (5.0-8.0) Ur Specific [place] (1.008-1.030) Urine Protein (NEGATIVE) mg/dL Urine Glucose (UA) (NEGATIVE) mg/dL Urine Ketones (NEGATIVE) mg/dL Urine Occult Blood (NEGATIVE) Urine Nitrite (NEGATIVE) Urine Bilirubin (NEGATIVE) Urine Urobilinogen (0.2-1.0) EU/dL Ur Leukocyte Esterase (NEGATIVE) Urine RBC (0-5) Urine WBC (0-5) Ur Epithelial Cells Amorphous Sediment Urine Bacteria Urine Mucus SARS CoV-2 RNA Rapid BAILEY Result Diagrams: 07/15/21 10:41 07/15/21 10:41 Imaging Impressions Last 24 hrs: CXR-images personally reviewed-there is a patchy right lower lung infiltrate seen best on the lateral view. heart size is normal. No mass or effusion. #1 Interpretation EKG Date: 07/15/21 Rhythm: NSR Rate (Beats/Min): 94 [place]: Normal P-Wave: Present QRS: Normal ST-T: Normal QT: Normal Sepsis Event Note - Evaluation Sepsis Screening Result: No Definite Risk Current Stage of Sepsis: Sepsis Possible Source of Sepsis: Pulmonary - Focused Exam Sepsis Event Note Statement: Focused Sepsis Exam Completed Vital Signs: Vital Signs Temp Pulse Resp BP Pulse Ox 07/15/21 12:30 97 139/92 H 92 L 07/15/21 12:05 99 144/93 H 94 L 07/15/21 11:45 100 142/89 H 93 L 07/15/21 11:25 98 129/80 92 L 07/15/21 10:45 101 H 122/80 91 L 07/15/21 10:30 103 H 16 118/71 96 07/15/21 10:24 36.1 C 104 H 18 118/71 87 L Respiratory Effort Without Exertion: Other (see below) (normal) Heart Sounds: Other (see below) (tachycardic) Capillary Refill, Detail: Less than/Equal to (</=) 2 Seconds Pulse Description: 2+ Normal Peripheral Pulse Location: Dorsalis Pedis Skin Exam (Focused Sepsis): Normal Turgor Date Exam was Performed: 07/15/21 Time Exam was Performed: 13:35 *Q Meaningful Use (ADM) - VTE Risk Assess *Q Each Risk Factor Represents 1 Point: Age 41 - 59 years, Obesity ( BMI > 25 kg/m2), Serious lung disease including pneumonia Total Score 1 Point Risk Factors: 3 Each Risk Factor Represents 2 Points: None Total Score 2 Point Risk Factors: 0 Each Risk Factor Represents 3 Points: None Total Score 3 Point Risk Factors: 0 Each Risk Factor Represents 5 Points: None Total Score 5 Point Risk Factors: 0 Venous Thromboembolism Risk Factor Score *Q: 3 - Problem List (1) Right lower lobe pneumonia SNOMED Code(s): 785649673 ICD Code: J18.9 - PNEUMONIA, UNSPECIFIED ORGANISM Status: Acute Current Visit: Yes Qualifiers: Pneumonia type: due to unspecified organism Qualified Code(s): J18.9 - Pneumonia, unspecified organism (2) Acute respiratory failure with hypoxia SNOMED Code(s): 65410256, 163585798 ICD Code: J96.01 - ACUTE RESPIRATORY FAILURE WITH HYPOXIA Status: Acute Current Visit: Yes (3) Sepsis SNOMED Code(s): 55598749 ICD Code: A41.9 - SEPSIS, UNSPECIFIED ORGANISM Status: Acute Current Visit: Yes Qualifiers: Sepsis type: sepsis due to unspecified organism Sepsis acute organ dysfunction status: with acute organ dysfunction Severe sepsis acute organ dysfunction type: acute respiratory failure Acute respiratory failure type: with hypoxia Severe sepsis shock status: without septic shock Qualified Code(s): A41.9 - Sepsis, unspecified organism; R65.20 - Severe sepsis without septic shock; J96.01 - Acute respiratory failure with hypoxia (4) Schizophrenia, catatonic type SNOMED Code(s): 190206459 ICD Code: F20.2 - CATATONIC SCHIZOPHRENIA Status: Chronic Current Visit: No (5) Type 2 diabetes mellitus SNOMED Code(s): 88651172 ICD Code: E11.9 - TYPE 2 DIABETES MELLITUS WITHOUT COMPLICATIONS Status: Chronic Current Visit: No Qualifiers: 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 Diabetes mellitus complication status: without complication Qualified Code(s): E11.9 - Type 2 diabetes mellitus without complications (6) Morbid obesity with BMI of 45.0-49.9, adult SNOMED Code(s): 176715946, 00561768795062 ICD Code: E66.01 - MORBID (SEVERE) OBESITY DUE TO EXCESS CALORIES; Z68.42 - BODY MASS INDEX [BMI] 45.0-49.9, ADULT Status: Chronic Current Visit: No Problem List Initiated/Reviewed/Updated: Yes Orders Last 24hrs: Active Orders 24 hr Category Date Time Status Patient Status Manage Transfer [TRANSFER] Routine ADT 07/15/21 13:40 Ordered Vital Signs [RC] Q1H Care 07/15/21 10:30 Active CULTURE BLOOD [BC] Urgent Lab 07/15/21 10:41 Received CULTURE BLOOD [BC] Urgent Lab 07/15/21 11:02 Received REFLEX LACTIC ACID YES OR NO [CHEM] Routine Lab 07/15/21 11:20 Received Lactated Ringers [Ringers, Lactated] 1,000 ml Med 07/15/21 10:30 Active IV ASDIRECTED Lactated Ringers [Ringers, Lactated] 1,000 ml Med 07/15/21 12:53 Active IV BOLUS Levofloxacin/Dextrose 5%-Water [Levaquin in D5W 750 MG/ Med 07/15/21 10:30 Active 150 ML] 750 mg Premix Bag 1 bag IV Q24H Blood Culture x2 Reflex Set [OM.PC] Urgent Oth 07/15/21 10:30 Ordered Resuscitation Status Routine Resus Stat 07/15/21 13:42 Ordered EKG 12 Lead [EK] Stat Ther 07/15/21 10:32 Ordered Medication Orders Lactated Ringer's (Ringers, Lactated) 1,000 mls @ 999 mls/hr IV ASDIRECTED LESLEY Last Admin: 07/15/21 10:47 Dose: 999 mls/hr Documented by: JUICE Levofloxacin/Dextrose 750 mg/ (Premix) 150 mls @ 100 mls/hr IV Q24H [facility] Last Admin: 07/15/21 10:47 Dose: 100 mls/hr Documented by: JUICE Lactated Ringer's (Ringers, Lactated) 1,000 mls @ 999 mls/hr IV BOLUS ONE Stop: 07/15/21 13:53 Last Admin: 07/15/21 12:54 Dose: 999 mls/hr Documented by: JUICE Assessment/Plan Comment:: ASSESSMENT AND PLAN - Right lower lobe pneumonia-complicated by acute respiratory failure with hypoxia and sepsis. Sepsis is improving with treatment provided in the emergency room. Evidence for sepsis includes tachycardia, elevated lactic acid and respiratory failure. -Continue antibiotic coverage with levofloxacin -Repeat lactic acid -Volume status seems appropriate so no additional fluids -Symptomatic management of cough, fever and myalgia -Supplement oxygen, wean as able Type 2 diabetes mellitus-controlled by history. -Hold Trulicity -Hold Metformin until lactic acidosis resolves -Sliding scale insulin Schizophrenia-stable. Continue home meds Obesity with BMI greater than 40- Maintenance issues - -DVT prophylaxis-SCD -GI prophylaxis-PPI -Nutrition-consistent carbohydrate -Welch catheter-not indicated CODE STATUS -full code Admission justification -this patient will be admitted for inpatient services and is medically appropriate meeting medical necessity for inpatient admission as outlined in my documentation. I reasonably expect the patient will require inpatient services that span a period time over 2 midnights. I reasonably expect this patient to be discharged or transferred within 96 hours after admission to the [facility]. Disposition -I anticipate discharge home after the hospital stay Primary care physician -Dr. Crystal Lima M.D. - Mortality Measure Prognosis:: Good
[2021-07-15] MEDS ORDERED: Polyethylene Glycol 3350 Powder 17 GM Packet PO PRN (15:40)
[2021-07-15] MEDS ORDERED: Albuterol 0.083% 2.5 MG/3 ML Neb Soln NEB PRN (15:40)
[2021-07-15] MEDS ORDERED: LORazepam 2 MG/ML SDV IVPUSH PRN (15:40)
[2021-07-15] MEDS ORDERED: Ondansetron 4 MG Tab.DIS PO PRN (15:40)
[2021-07-15] MEDS ORDERED: Ondansetron 4 MG/2 ML SDV IV PRN (15:40)
[2021-07-15] MEDS: Gabapentin 400 MG Cap PO SCH ×2 (17:34→20:34)
[2021-07-15] MEDS: tiZANidine 2 MG Tab PO SCH ×2 (17:35→20:34)
[2021-07-15] MEDS: Insulin Lispro 100 Unit/ML 3 ML KwikPen SUBCUT SCH ×2 (17:36→20:55)
[2021-07-15] MEDS: ALPRAZolam 0.5 MG Tab PO SCH ×2 (17:38→20:34)
[2021-07-15] MEDS: Acetaminophen 325 MG Tab PO PRN (18:41)
[2021-07-15] MEDS: OLANZapine 5 MG Tab PO SCH (20:33)
[2021-07-15] MEDS: rOPINIRole 1 MG Tab PO SCH (20:34)
[2021-07-15] MEDS: Lactobacillus Rhamnosus GG (Probiotic) Cap PO SCH (20:34)
[2021-07-15] MEDS: Melatonin 3 MG Tab PO SCH (20:34)
[2021-07-15] MEDS: CLOZAPINE 200 MG PO SCH (20:35)
[2021-07-16] MEDS: Insulin Lispro 100 Unit/ML 3 ML KwikPen SUBCUT SCH ×2 (07:29→11:41)
[2021-07-16] MEDS: Pantoprazole 40 MG Tab.CR PO SCH (08:17)
[2021-07-16] MEDS: OLANZapine 5 MG Tab PO SCH ×2 (08:35→20:00)
[2021-07-16] MEDS: Estradiol 0.5 MG Tab PO SCH (08:35)
[2021-07-16] MEDS: Gabapentin 400 MG Cap PO SCH ×5 (08:35→20:02)
[2021-07-16] MEDS: Lactobacillus Rhamnosus GG (Probiotic) Cap PO SCH ×3 (08:35→20:02)
[2021-07-16] MEDS: tiZANidine 2 MG Tab PO SCH ×4 (08:35→20:01)
[2021-07-16] MEDS: ALPRAZolam 0.5 MG Tab PO SCH ×4 (08:35→20:01)
[2021-07-16] MEDS: Citalopram 20 MG Tab PO SCH (08:35)
[2021-07-16] MEDS: Acetaminophen 325 MG Tab PO PRN ×2 (08:36→13:50)
[2021-07-16] MEDS ORDERED: PIROXICAM 20 MG PO SCH (09:30)
[2021-07-16] MEDS: Levofloxacin/Dextrose 5%-Water 750 MG in Premix Bag 1 BAG IV SCH (10:28)
--- NOTE | 2021-07-16 10:47 | PCM.PN ---
- General Info Date of Service: 07/16/21 Subjective Update: No acute events overnight. Patient feels better today with less shortness of breath and less myalgias. Still requiring supplemental oxygen but less so than yesterday. No nausea. Appetite good. Blood sugars well controlled. No fevers. White count normal today. Functional Status: Reports: Pain Controlled, Tolerating Diet - Review of Systems General: Reports: Weakness Pulmonary: Reports: Shortness of Breath (mild), Cough (loose) - Patient Data Vitals - Most Recent: Last Vital Signs Temp 35.6 C L 07/16/21 07:25 Pulse 77 07/16/21 07:25 Resp 16 07/16/21 07:25 BP 111/67 07/16/21 07:25 Pulse Ox 92 L 07/16/21 07:25 Weight - Most Recent: 117.48 kg I&O - Last 24 Hours: Intake & Output 07/15/21 07/16/21 07/16/21 22:59 06:59 14:59 Intake Total 860 120 Output Total 1000 1300 500 Balance -140 -1300 -380 Lab Results Last 24 Hours: Laboratory Results - last 24 hr 07/15/21 07/15/21 07/15/21 Range/Units 10:30 10:35 10:41 WBC (4.5-11.0) K/uL RBC (3.30-5.50) M/uL Hgb (12.0-15.0) g/dL Hct (36.0-48.0) % MCV (80-98) fL MCH (27-31) pg MCHC (32-36) % Plt Count (150-400) K/uL Puncture Site Rt radial ABG pH 7.441 (7.350-7.450) ABG pCO2 34.1 L (35.0-42.0) mmHg ABG pO2 83.3 (75.0-100.0) mmHg ABG HCO3 22.9 (22.0-26.0) mmol/L ABG Total CO2 19.9 L (21.0-25.0) mmol/L ABG O2 Saturation 97.2 (95.0-98.0) % ABG O2 Content 18.7 (15.0-23.0) %vol ABG Base Excess -0.2 mm/L ABG Hemoglobin 14.1 (12.0-16.0) g/dL ABG Oxyhemoglobin 94.2 % ABG Carboxyhemoglobin 2.1 H (0.0-1.6) % ABG Methemoglobin 1.0 % Ramy Test Passed O2 Delivery Device Nasal cannula Oxygen Flow Rate 2.0 L Sodium 137 L (140-148) mmol/L Potassium 4.2 (3.6-5.2) mmol/L Chloride 101 (100-108) mmol/L Carbon Dioxide 24 (21-32) mmol/L Anion Gap 16.2 H (5.0-14.0) mmol/L BUN 16 (7-18) mg/dL Creatinine 0.8 (0.6-1.0) mg/dL Est Cr Clr Drug Dosing 81.59 mL/min Estimated GFR (MDRD) > 60 (>60) Glucose 141 H (74-106) mg/dL POC Glucose (74-106) mg/dL Lactic Acid (0.4-2.0) mmol/L Calcium 8.7 (8.5-10.1) mg/dL Total Bilirubin 0.5 (0.2-1.0) mg/dL AST 56 H D (15-37) U/L ALT 49 (12-78) U/L Alkaline Phosphatase 162 H (46-116) U/L Troponin I (0.000-0.056) ng/mL C-Reactive Protein 1.96 H (0.0-0.3) mg/dL Total Protein 6.4 (6.4-8.2) g/dL Albumin 3.0 L (3.4-5.0) g/dL Globulin 3.4 (2.3-3.5) g/dL Albumin/Globulin Ratio 0.9 L (1.2-2.2) Procalcitonin ng/mL Urine Color Yellow (YELLOW) Urine Appearance Clear (CLEAR) Urine pH 6.5 (5.0-8.0) Ur Specific [place] 1.025 (1.008-1.030) Urine Protein 30 H (NEGATIVE) mg/dL Urine Glucose (UA) Negative (NEGATIVE) mg/dL Urine Ketones Negative (NEGATIVE) mg/dL Urine Occult Blood Negative (NEGATIVE) Urine Nitrite Negative (NEGATIVE) Urine Bilirubin Small H (NEGATIVE) Urine Urobilinogen 2.0 H (0.2-1.0) EU/dL Ur Leukocyte Esterase Negative (NEGATIVE) Urine RBC 0-5 (0-5) Urine WBC 0-5 (0-5) Ur Epithelial Cells Few Amorphous Sediment Occasional Urine Bacteria Few Urine Mucus Many 07/15/21 07/15/21 07/15/21 Range/Units 10:41 10:41 10:41 WBC (4.5-11.0) K/uL RBC (3.30-5.50) M/uL Hgb (12.0-15.0) g/dL Hct (36.0-48.0) % MCV (80-98) fL MCH (27-31) pg MCHC (32-36) % Plt Count (150-400) K/uL Puncture Site ABG pH (7.350-7.450) ABG pCO2 (35.0-42.0) mmHg ABG pO2 (75.0-100.0) mmHg ABG HCO3 (22.0-26.0) mmol/L ABG Total CO2 (21.0-25.0) mmol/L ABG O2 Saturation (95.0-98.0) % ABG O2 Content (15.0-23.0) %vol ABG Base Excess mm/L ABG Hemoglobin (12.0-16.0) g/dL ABG Oxyhemoglobin % ABG Carboxyhemoglobin (0.0-1.6) % ABG Methemoglobin % Ramy Test O2 Delivery Device Oxygen Flow Rate L Sodium (140-148) mmol/L Potassium (3.6-5.2) mmol/L Chloride (100-108) mmol/L Carbon Dioxide (21-32) mmol/L Anion Gap (5.0-14.0) mmol/L BUN (7-18) mg/dL Creatinine (0.6-1.0) mg/dL Est Cr Clr Drug Dosing mL/min Estimated GFR (MDRD) (>60) Glucose (74-106) mg/dL POC Glucose (74-106) mg/dL Lactic Acid 2.4 H (0.4-2.0) mmol/L Calcium (8.5-10.1) mg/dL Total Bilirubin (0.2-1.0) mg/dL AST (15-37) U/L ALT (12-78) U/L Alkaline Phosphatase (46-116) U/L Troponin I < 0.017 (0.000-0.056) ng/mL C-Reactive Protein (0.0-0.3) mg/dL Total Protein (6.4-8.2) g/dL Albumin (3.4-5.0) g/dL Globulin (2.3-3.5) g/dL Albumin/Globulin Ratio (1.2-2.2) Procalcitonin < 0.05 ng/mL Urine Color (YELLOW) Urine Appearance (CLEAR) Urine pH (5.0-8.0) Ur Specific [place] (1.008-1.030) Urine Protein (NEGATIVE) mg/dL Urine Glucose (UA) (NEGATIVE) mg/dL Urine Ketones (NEGATIVE) mg/dL Urine Occult Blood (NEGATIVE) Urine Nitrite (NEGATIVE) Urine Bilirubin (NEGATIVE) Urine Urobilinogen (0.2-1.0) EU/dL Ur Leukocyte Esterase (NEGATIVE) Urine RBC (0-5) Urine WBC (0-5) Ur Epithelial Cells Amorphous Sediment Urine Bacteria Urine Mucus 07/15/21 07/15/21 07/15/21 Range/Units 15:03 16:20 20:53 WBC (4.5-11.0) K/uL RBC (3.30-5.50) M/uL Hgb (12.0-15.0) g/dL Hct (36.0-48.0) % MCV (80-98) fL MCH (27-31) pg MCHC (32-36) % Plt Count (150-400) K/uL Puncture Site ABG pH (7.350-7.450) ABG pCO2 (35.0-42.0) mmHg ABG pO2 (75.0-100.0) mmHg ABG HCO3 (22.0-26.0) mmol/L ABG Total CO2 (21.0-25.0) mmol/L ABG O2 Saturation (95.0-98.0) % ABG O2 Content (15.0-23.0) %vol ABG Base Excess mm/L ABG Hemoglobin (12.0-16.0) g/dL ABG Oxyhemoglobin % ABG Carboxyhemoglobin (0.0-1.6) % ABG Methemoglobin % Ramy Test O2 Delivery Device Oxygen Flow Rate L Sodium (140-148) mmol/L Potassium (3.6-5.2) mmol/L Chloride (100-108) mmol/L Carbon Dioxide (21-32) mmol/L Anion Gap (5.0-14.0) mmol/L BUN (7-18) mg/dL Creatinine (0.6-1.0) mg/dL Est Cr Clr Drug Dosing mL/min Estimated GFR (MDRD) (>60) Glucose (74-106) mg/dL POC Glucose 99 119 H (74-106) mg/dL Lactic Acid 1.9 (0.4-2.0) mmol/L Calcium (8.5-10.1) mg/dL Total Bilirubin (0.2-1.0) mg/dL AST (15-37) U/L ALT (12-78) U/L Alkaline Phosphatase (46-116) U/L Troponin I (0.000-0.056) ng/mL C-Reactive Protein (0.0-0.3) mg/dL Total Protein (6.4-8.2) g/dL Albumin (3.4-5.0) g/dL Globulin (2.3-3.5) g/dL Albumin/Globulin Ratio (1.2-2.2) Procalcitonin ng/mL Urine Color (YELLOW) Urine Appearance (CLEAR) Urine pH (5.0-8.0) Ur Specific [place] (1.008-1.030) Urine Protein (NEGATIVE) mg/dL Urine Glucose (UA) (NEGATIVE) mg/dL Urine Ketones (NEGATIVE) mg/dL Urine Occult Blood (NEGATIVE) Urine Nitrite (NEGATIVE) Urine Bilirubin (NEGATIVE) Urine Urobilinogen (0.2-1.0) EU/dL Ur Leukocyte Esterase (NEGATIVE) Urine RBC (0-5) Urine WBC (0-5) Ur Epithelial Cells Amorphous Sediment Urine Bacteria Urine Mucus 07/16/21 07/16/21 07/16/21 Range/Units 03:00 05:30 07:25 WBC 10.8 (4.5-11.0) K/uL RBC 4.04 (3.30-5.50) M/uL Hgb 12.8 (12.0-15.0) g/dL Hct 39.0 (36.0-48.0) % MCV 97 (80-98) fL MCH 32 H (27-31) pg MCHC 33 (32-36) % Plt Count 344 (150-400) K/uL Puncture Site ABG pH (7.350-7.450) ABG pCO2 (35.0-42.0) mmHg ABG pO2 (75.0-100.0) mmHg ABG HCO3 (22.0-26.0) mmol/L ABG Total CO2 (21.0-25.0) mmol/L ABG O2 Saturation (95.0-98.0) % ABG O2 Content (15.0-23.0) %vol ABG Base Excess mm/L ABG Hemoglobin (12.0-16.0) g/dL ABG Oxyhemoglobin % ABG Carboxyhemoglobin (0.0-1.6) % ABG Methemoglobin % Ramy Test O2 Delivery Device Oxygen Flow Rate L Sodium 140 (140-148) mmol/L Potassium 4.0 (3.6-5.2) mmol/L Chloride 105 (100-108) mmol/L Carbon Dioxide 27 (21-32) mmol/L Anion Gap 8.3 (5.0-14.0) mmol/L BUN 10 (7-18) mg/dL Creatinine 0.6 (0.6-1.0) mg/dL Est Cr Clr Drug Dosing 108.79 mL/min Estimated GFR (MDRD) > 60 (>60) Glucose 108 H (74-106) mg/dL POC Glucose 110 H (74-106) mg/dL Lactic Acid (0.4-2.0) mmol/L Calcium 8.5 (8.5-10.1) mg/dL Total Bilirubin (0.2-1.0) mg/dL AST (15-37) U/L ALT (12-78) U/L Alkaline Phosphatase (46-116) U/L Troponin I (0.000-0.056) ng/mL C-Reactive Protein (0.0-0.3) mg/dL Total Protein (6.4-8.2) g/dL Albumin (3.4-5.0) g/dL Globulin (2.3-3.5) g/dL Albumin/Globulin Ratio (1.2-2.2) Procalcitonin ng/mL Urine Color (YELLOW) Urine Appearance (CLEAR) Urine pH (5.0-8.0) Ur Specific [place] (1.008-1.030) Urine Protein (NEGATIVE) mg/dL Urine Glucose (UA) (NEGATIVE) mg/dL Urine Ketones (NEGATIVE) mg/dL Urine Occult Blood (NEGATIVE) Urine Nitrite (NEGATIVE) Urine Bilirubin (NEGATIVE) Urine Urobilinogen (0.2-1.0) EU/dL Ur Leukocyte Esterase (NEGATIVE) Urine RBC (0-5) Urine WBC (0-5) Ur Epithelial Cells Amorphous Sediment Urine Bacteria Urine Mucus [place] Results Last 24 Hours: Microbiology 07/15/21 10:41 Aerobic Blood Culture - Preliminary Blood - Arm, Left NO GROWTH AFTER 1 DAY Anaerobic Blood Culture - Preliminary NO GROWTH AFTER 1 DAY Med Orders - Current: Current Medications Acetaminophen (Acetaminophen 325 Mg Tab) 650 mg PO Q4H PRN PRN Reason: Pain (Mild 1-3)/fever Last Admin: 07/16/21 08:36 Dose: 650 mg Documented by: Albuterol (Albuterol 0.083% 2.5 Mg/3 Ml Neb Soln) 2.5 mg NEB Q4H PRN PRN Reason: Shortness Of Breath/wheezing Alprazolam (Alprazolam 0.5 Mg Tab) 1 mg PO TID [facility] Last Admin: 07/16/21 08:35 Dose: 1 mg Documented by: Citalopram Hydrobromide (Citalopram 20 Mg Tab) 40 mg PO DAILY [facility] Last Admin: 07/16/21 08:35 Dose: 40 mg Documented by: Estradiol (Estradiol 0.5 Mg Tab) 1.5 mg PO DAILY [facility] Last Admin: 07/16/21 08:35 Dose: 1.5 mg Documented by: Gabapentin (Gabapentin 400 Mg Cap) 400 mg PO TID [facility] Last Admin: 07/16/21 08:35 Dose: 400 mg Documented by: Levofloxacin/Dextrose 750 mg/ (Premix) 150 mls @ 100 mls/hr IV Q24H [facility] Last Admin: 07/16/21 10:28 Dose: 100 mls/hr Documented by: Ibuprofen (Ibuprofen 600 Mg Tab) 600 mg PO Q6H PRN PRN Reason: Pain/Fever Insulin Human Lispro (Insulin Lispro 100 Unit/Ml 3 Ml Kwikpen) 0 unit SUBCUT QIDACANDBED [facility]; Protocol Last Admin: 07/16/21 07:29 Dose: Not Given Documented by: Lactobacillus Rhamnosus (Lactobacillus Rhamnosus Gg (Probiotic) Cap) 1 cap PO BID [facility] Last Admin: 07/16/21 08:35 Dose: 1 cap Documented by: Lorazepam (Lorazepam 2 Mg/Ml Sdv) 0.5 mg IVPUSH Q4H PRN PRN Reason: Nausea/Vomiting Melatonin (Melatonin 3 Mg Tab) 9 mg PO BEDTIME [facility] Last Admin: 07/15/21 20:34 Dose: 9 mg Documented by: Non-Formulary Medication (Dulaglutide [Trulicity]) 0.75 mg SQ WEEKLY [facility] Non-Formulary Medication (Piroxicam [Piroxicam]) 1 tab PO DAILY [facility] Olanzapine (Olanzapine 5 Mg Tab) 15 mg PO BID [facility] Last Admin: 07/16/21 08:35 Dose: 15 mg Documented by: Ondansetron HCl (Ondansetron 4 Mg/2 Ml Sdv) 4 mg IV Q6H PRN PRN Reason: Nausea/Vomiting Ondansetron HCl (Ondansetron 4 Mg Tab.Dis) 4 mg PO Q6H PRN PRN Reason: Nausea able to take PO Pantoprazole Sodium (Pantoprazole 40 Mg Tab.Cr) 40 mg PO ACBREAKFAST [facility] Last Admin: 07/16/21 08:17 Dose: 40 mg Documented by: Clozapine 200mg (Ptom) 0 each PO BEDTIME [facility] Last Admin: 07/15/21 20:35 Dose: 1 each Documented by: Polyethylene Glycol (Polyethylene Glycol 3350 Powder 17 Gm Packet) 17 gm PO DAILY PRN PRN Reason: Constipation Ropinirole HCl (Ropinirole 1 Mg Tab) 1 mg PO BEDTIME [facility] Last Admin: 07/15/21 20:34 Dose: 1 mg Documented by: Senna/Docusate Sodium (Docusate Sodium/Sennosides 50-8.6 Mg Tab) 1 tab PO BID PRN PRN Reason: Constipation Tizanidine HCl (Tizanidine 2 Mg Tab) 2 mg PO TID [facility] Last Admin: 07/16/21 08:35 Dose: 2 mg Documented by: Discontinued Medications Acetaminophen (Acetaminophen 325 Mg Tab) 650 mg PO NOW ONE Stop: 07/15/21 13:39 Last Admin: 07/15/21 14:09 Dose: 650 mg Documented by: Lactated Ringer's (Ringers, Lactated) 1,000 mls @ 999 mls/hr IV ASDIRECTED [facility] Last Admin: 07/15/21 10:47 Dose: 999 mls/hr Documented by: Levofloxacin/Dextrose 750 mg/ (Premix) 150 mls @ 100 mls/hr IV Q24H [facility] Last Admin: 07/15/21 10:47 Dose: 100 mls/hr Documented by: Lactated Ringer's (Ringers, Lactated) 1,000 mls @ 999 mls/hr IV BOLUS ONE Stop: 07/15/21 13:53 Last Admin: 07/15/21 12:54 Dose: 999 mls/hr Documented by: Olanzapine (Olanzapine 5 Mg Tab) 15 mg PO ONETIME ONE Stop: 07/15/21 13:39 Last Admin: 07/15/21 14:09 Dose: 15 mg Documented by: - Exam Quality Assessment: Supplemental Oxygen General: Alert, Oriented, Cooperative, No Acute Distress Lungs: Normal Respiratory Effort, Crackles (few left lower lung ) Cardiovascular: Regular Rate, Regular Rhythm GI/Abdominal Exam: Soft, No Distention Extremities: No Pedal Edema. No: Increased Warmth Skin: Warm, Dry Psy/Mental Status: Alert, Normal Affect - Patient Data Lab Results Last 24 hrs: Laboratory Results - last 24 hr 07/15/21 07/15/21 07/15/21 Range/Units 10:30 10:35 10:41 WBC (4.5-11.0) K/uL RBC (3.30-5.50) M/uL Hgb (12.0-15.0) g/dL Hct (36.0-48.0) % MCV (80-98) fL MCH (27-31) pg MCHC (32-36) % Plt Count (150-400) K/uL Puncture Site Rt radial ABG pH 7.441 (7.350-7.450) ABG pCO2 34.1 L (35.0-42.0) mmHg ABG pO2 83.3 (75.0-100.0) mmHg ABG HCO3 22.9 (22.0-26.0) mmol/L ABG Total CO2 19.9 L (21.0-25.0) mmol/L ABG O2 Saturation 97.2 (95.0-98.0) % ABG O2 Content 18.7 (15.0-23.0) %vol ABG Base Excess -0.2 mm/L ABG Hemoglobin 14.1 (12.0-16.0) g/dL ABG Oxyhemoglobin 94.2 % ABG Carboxyhemoglobin 2.1 H (0.0-1.6) % ABG Methemoglobin 1.0 % Ramy Test Passed O2 Delivery Device Nasal cannula Oxygen Flow Rate 2.0 L Sodium 137 L (140-148) mmol/L Potassium 4.2 (3.6-5.2) mmol/L Chloride 101 (100-108) mmol/L Carbon Dioxide 24 (21-32) mmol/L Anion Gap 16.2 H (5.0-14.0) mmol/L BUN 16 (7-18) mg/dL Creatinine 0.8 (0.6-1.0) mg/dL Est Cr Clr Drug Dosing 81.59 mL/min Estimated GFR (MDRD) > 60 (>60) Glucose 141 H (74-106) mg/dL POC Glucose (74-106) mg/dL Lactic Acid (0.4-2.0) mmol/L Calcium 8.7 (8.5-10.1) mg/dL Total Bilirubin 0.5 (0.2-1.0) mg/dL AST 56 H D (15-37) U/L ALT 49 (12-78) U/L Alkaline Phosphatase 162 H (46-116) U/L Troponin I (0.000-0.056) ng/mL C-Reactive Protein 1.96 H (0.0-0.3) mg/dL Total Protein 6.4 (6.4-8.2) g/dL Albumin 3.0 L (3.4-5.0) g/dL Globulin 3.4 (2.3-3.5) g/dL Albumin/Globulin Ratio 0.9 L (1.2-2.2) Procalcitonin ng/mL Urine Color Yellow (YELLOW) Urine Appearance Clear (CLEAR) Urine pH 6.5 (5.0-8.0) Ur Specific [place] 1.025 (1.008-1.030) Urine Protein 30 H (NEGATIVE) mg/dL Urine Glucose (UA) Negative (NEGATIVE) mg/dL Urine Ketones Negative (NEGATIVE) mg/dL Urine Occult Blood Negative (NEGATIVE) Urine Nitrite Negative (NEGATIVE) Urine Bilirubin Small H (NEGATIVE) Urine Urobilinogen 2.0 H (0.2-1.0) EU/dL Ur Leukocyte Esterase Negative (NEGATIVE) Urine RBC 0-5 (0-5) Urine WBC 0-5 (0-5) Ur Epithelial Cells Few Amorphous Sediment Occasional Urine Bacteria Few Urine Mucus Many 07/15/21 07/15/21 07/15/21 Range/Units 10:41 10:41 10:41 WBC (4.5-11.0) K/uL RBC (3.30-5.50) M/uL Hgb (12.0-15.0) g/dL Hct (36.0-48.0) % MCV (80-98) fL MCH (27-31) pg MCHC (32-36) % Plt Count (150-400) K/uL Puncture Site ABG pH (7.350-7.450) ABG pCO2 (35.0-42.0) mmHg ABG pO2 (75.0-100.0) mmHg ABG HCO3 (22.0-26.0) mmol/L ABG Total CO2 (21.0-25.0) mmol/L ABG O2 Saturation (95.0-98.0) % ABG O2 Content (15.0-23.0) %vol ABG Base Excess mm/L ABG Hemoglobin (12.0-16.0) g/dL ABG Oxyhemoglobin % ABG Carboxyhemoglobin (0.0-1.6) % ABG Methemoglobin % Ramy Test O2 Delivery Device Oxygen Flow Rate L Sodium (140-148) mmol/L Potassium (3.6-5.2) mmol/L Chloride (100-108) mmol/L Carbon Dioxide (21-32) mmol/L Anion Gap (5.0-14.0) mmol/L BUN (7-18) mg/dL Creatinine (0.6-1.0) mg/dL Est Cr Clr Drug Dosing mL/min Estimated GFR (MDRD) (>60) Glucose (74-106) mg/dL POC Glucose (74-106) mg/dL Lactic Acid 2.4 H (0.4-2.0) mmol/L Calcium (8.5-10.1) mg/dL Total Bilirubin (0.2-1.0) mg/dL AST (15-37) U/L ALT (12-78) U/L Alkaline Phosphatase (46-116) U/L Troponin I < 0.017 (0.000-0.056) ng/mL C-Reactive Protein (0.0-0.3) mg/dL Total Protein (6.4-8.2) g/dL Albumin (3.4-5.0) g/dL Globulin (2.3-3.5) g/dL Albumin/Globulin Ratio (1.2-2.2) Procalcitonin < 0.05 ng/mL Urine Color (YELLOW) Urine Appearance (CLEAR) Urine pH (5.0-8.0) Ur Specific [place] (1.008-1.030) Urine Protein (NEGATIVE) mg/dL Urine Glucose (UA) (NEGATIVE) mg/dL Urine Ketones (NEGATIVE) mg/dL Urine Occult Blood (NEGATIVE) Urine Nitrite (NEGATIVE) Urine Bilirubin (NEGATIVE) Urine Urobilinogen (0.2-1.0) EU/dL Ur Leukocyte Esterase (NEGATIVE) Urine RBC (0-5) Urine WBC (0-5) Ur Epithelial Cells Amorphous Sediment Urine Bacteria Urine Mucus 07/15/21 07/15/21 07/15/21 Range/Units 15:03 16:20 20:53 WBC (4.5-11.0) K/uL RBC (3.30-5.50) M/uL Hgb (12.0-15.0) g/dL Hct (36.0-48.0) % MCV (80-98) fL MCH (27-31) pg MCHC (32-36) % Plt Count (150-400) K/uL Puncture Site ABG pH (7.350-7.450) ABG pCO2 (35.0-42.0) mmHg ABG pO2 (75.0-100.0) mmHg ABG HCO3 (22.0-26.0) mmol/L ABG Total CO2 (21.0-25.0) mmol/L ABG O2 Saturation (95.0-98.0) % ABG O2 Content (15.0-23.0) %vol ABG Base Excess mm/L ABG Hemoglobin (12.0-16.0) g/dL ABG Oxyhemoglobin % ABG Carboxyhemoglobin (0.0-1.6) % ABG Methemoglobin % Ramy Test O2 Delivery Device Oxygen Flow Rate L Sodium (140-148) mmol/L Potassium (3.6-5.2) mmol/L Chloride (100-108) mmol/L Carbon Dioxide (21-32) mmol/L Anion Gap (5.0-14.0) mmol/L BUN (7-18) mg/dL Creatinine (0.6-1.0) mg/dL Est Cr Clr Drug Dosing mL/min Estimated GFR (MDRD) (>60) Glucose (74-106) mg/dL POC Glucose 99 119 H (74-106) mg/dL Lactic Acid 1.9 (0.4-2.0) mmol/L Calcium (8.5-10.1) mg/dL Total Bilirubin (0.2-1.0) mg/dL AST (15-37) U/L ALT (12-78) U/L Alkaline Phosphatase (46-116) U/L Troponin I (0.000-0.056) ng/mL C-Reactive Protein (0.0-0.3) mg/dL Total Protein (6.4-8.2) g/dL Albumin (3.4-5.0) g/dL Globulin (2.3-3.5) g/dL Albumin/Globulin Ratio (1.2-2.2) Procalcitonin ng/mL Urine Color (YELLOW) Urine Appearance (CLEAR) Urine pH (5.0-8.0) Ur Specific [place] (1.008-1.030) Urine Protein (NEGATIVE) mg/dL Urine Glucose (UA) (NEGATIVE) mg/dL Urine Ketones (NEGATIVE) mg/dL Urine Occult Blood (NEGATIVE) Urine Nitrite (NEGATIVE) Urine Bilirubin (NEGATIVE) Urine Urobilinogen (0.2-1.0) EU/dL Ur Leukocyte Esterase (NEGATIVE) Urine RBC (0-5) Urine WBC (0-5) Ur Epithelial Cells Amorphous Sediment Urine Bacteria Urine Mucus 07/16/21 07/16/21 07/16/21 Range/Units 03:00 05:30 07:25 WBC 10.8 (4.5-11.0) K/uL RBC 4.04 (3.30-5.50) M/uL Hgb 12.8 (12.0-15.0) g/dL Hct 39.0 (36.0-48.0) % MCV 97 (80-98) fL MCH 32 H (27-31) pg MCHC 33 (32-36) % Plt Count 344 (150-400) K/uL Puncture Site ABG pH (7.350-7.450) ABG pCO2 (35.0-42.0) mmHg ABG pO2 (75.0-100.0) mmHg ABG HCO3 (22.0-26.0) mmol/L ABG Total CO2 (21.0-25.0) mmol/L ABG O2 Saturation (95.0-98.0) % ABG O2 Content (15.0-23.0) %vol ABG Base Excess mm/L ABG Hemoglobin (12.0-16.0) g/dL ABG Oxyhemoglobin % ABG Carboxyhemoglobin (0.0-1.6) % ABG Methemoglobin % Ramy Test O2 Delivery Device Oxygen Flow Rate L Sodium 140 (140-148) mmol/L Potassium 4.0 (3.6-5.2) mmol/L Chloride 105 (100-108) mmol/L Carbon Dioxide 27 (21-32) mmol/L Anion Gap 8.3 (5.0-14.0) mmol/L BUN 10 (7-18) mg/dL Creatinine 0.6 (0.6-1.0) mg/dL Est Cr Clr Drug Dosing 108.79 mL/min Estimated GFR (MDRD) > 60 (>60) Glucose 108 H (74-106) mg/dL POC Glucose 110 H (74-106) mg/dL Lactic Acid (0.4-2.0) mmol/L Calcium 8.5 (8.5-10.1) mg/dL Total Bilirubin (0.2-1.0) mg/dL AST (15-37) U/L ALT (12-78) U/L Alkaline Phosphatase (46-116) U/L Troponin I (0.000-0.056) ng/mL C-Reactive Protein (0.0-0.3) mg/dL Total Protein (6.4-8.2) g/dL Albumin (3.4-5.0) g/dL Globulin (2.3-3.5) g/dL Albumin/Globulin Ratio (1.2-2.2) Procalcitonin ng/mL Urine Color (YELLOW) Urine Appearance (CLEAR) Urine pH (5.0-8.0) Ur Specific [place] (1.008-1.030) Urine Protein (NEGATIVE) mg/dL Urine Glucose (UA) (NEGATIVE) mg/dL Urine Ketones (NEGATIVE) mg/dL Urine Occult Blood (NEGATIVE) Urine Nitrite (NEGATIVE) Urine Bilirubin (NEGATIVE) Urine Urobilinogen (0.2-1.0) EU/dL Ur Leukocyte Esterase (NEGATIVE) Urine RBC (0-5) Urine WBC (0-5) Ur Epithelial Cells Amorphous Sediment Urine Bacteria Urine Mucus Result Diagrams: 07/16/21 03:00 07/16/21 05:30 Diego Results Last 24 hrs: Microbiology 07/15/21 10:41 Aerobic Blood Culture - Preliminary Blood - Arm, Left NO GROWTH AFTER 1 DAY Anaerobic Blood Culture - Preliminary NO GROWTH AFTER 1 DAY Sepsis Event Note - Evaluation Sepsis Screening Result: Possible Sepsis Risk - Focused Exam Vital Signs: Vital Signs Temp Pulse Resp BP BP Pulse Ox Pulse Ox 07/16/21 07:25 35.6 C L 77 16 111/67 92 L 07/16/21 03:21 36.3 C 74 18 84/49 L 92 L 07/16/21 00:07 94 L 07/16/21 00:00 36.9 C 77 16 93/55 L 93 L - Problem List & Annotations (1) Right lower lobe pneumonia SNOMED Code(s): 557518036 Code(s): J18.9 - PNEUMONIA, UNSPECIFIED ORGANISM Status: Acute Current Visit: Yes Qualifiers: Pneumonia type: due to unspecified organism Qualified Code(s): J18.9 - Pneumonia, unspecified organism (2) Acute respiratory failure with hypoxia SNOMED Code(s): 06218907, 577478392 Code(s): J96.01 - ACUTE RESPIRATORY FAILURE WITH HYPOXIA Status: Acute Current Visit: Yes (3) Sepsis SNOMED Code(s): 95892254 Code(s): A41.9 - SEPSIS, UNSPECIFIED ORGANISM Status: Acute Current Visit: Yes Qualifiers: Sepsis type: sepsis due to unspecified organism Sepsis acute organ dysfunction status: with acute organ dysfunction Severe sepsis acute organ dysfunction type: acute respiratory failure Acute respiratory failure type: with hypoxia Severe sepsis shock status: without septic shock Qualified Code(s): A41.9 - Sepsis, unspecified organism; R65.20 - Severe sepsis without septic shock; J96.01 - Acute respiratory failure with hypoxia (4) Schizophrenia, catatonic type SNOMED Code(s): 485242602 Code(s): F20.2 - CATATONIC SCHIZOPHRENIA Status: Chronic Current Visit: No (5) Type 2 diabetes mellitus SNOMED Code(s): 25410028 Code(s): E11.9 - TYPE 2 DIABETES MELLITUS WITHOUT COMPLICATIONS Status: Chronic Current Visit: No Qualifiers: Diabetes mellitus terminal system operator insulin use: without mcfp use Diabetes mellitus complication status: without complication Qualified Code(s): E11.9 - Type 2 diabetes mellitus without complications (6) Morbid obesity with BMI of 45.0-49.9, adult SNOMED Code(s): 973728726, 41195405525542 Code(s): E66.01 - MORBID (SEVERE) OBESITY DUE TO EXCESS CALORIES; Z68.42 - BODY MASS INDEX [BMI] 45.0-49.9, ADULT Status: Chronic Current Visit: No - Problem List Review Problem List Initiated/Reviewed/Updated: Yes - My Orders Last 24 Hours: My Active Orders 07/15/21 13:42 Resuscitation Status Routine 07/15/21 15:40 ALPRAZolam [Xanax] 1 mg PO TID Acetaminophen [TylenoL] 650 mg PO Q4H PRN Albuterol [Proventil Neb Soln] 2.5 mg NEB Q4H PRN Docusate Sodium/Sennosides [Senna Plus] 1 tab PO BID PRN Gabapentin [Neurontin] 400 mg PO TID Ibuprofen [Motrin] 600 mg PO Q6H PRN LORazepam [Ativan] 0.5 mg IVPUSH Q4H PRN Ondansetron [Zofran ODT] 4 mg PO Q6H PRN Ondansetron [Zofran] 4 mg IV Q6H PRN polyethylene glycoL 3350 [MiraLAX] 17 gm PO DAILY PRN tiZANidine [Zanaflex] 2 mg PO TID 07/15/21 15:40 Patient Status [ADT] Routine Antiembolic Devices [RC] .Routine Communication Order [RC] PRN Communication Order [RC] PRN Diabetes Education [RC] Click to Edit Intake and Output [RC] QSHIFT Notify Provider Vital Signs [RC] ASDIRECTED Oxygen Therapy [RC] PRN RT Aerosol Therapy [RC] ASDIRECTED Up With Assistance [RC] ASDIRECTED Vital Signs [RC] Q4H Sequential Compression Device [OM.PC] Routine 07/15/21 Dinner Consistent Carbohydrate Diet [DIET] Insulin Lispro [HumaLOG] See Protocol SUBCUT QIDACANDBED 07/15/21 21:00 Lactobacillus Rhamnosus GG [Culturelle] 1 cap PO BID Melatonin 9 mg PO BEDTIME OLANZapine [ZyPREXA] 15 mg PO BID Patient's Own Medication [Ptom] 0 each PO BEDTIME rOPINIRole [Requip] 1 mg PO BEDTIME 07/16/21 07:30 Pantoprazole [ProTONIX] 40 mg PO ACBREAKFAST 07/16/21 09:00 Citalopram [Celexa] 40 mg PO DAILY estradioL 1.5 mg PO DAILY 07/16/21 09:30 Dulaglutide [Trulicity] 0.75 mg SQ WEEKLY Piroxicam [Piroxicam] 1 tab PO DAILY 07/16/21 11:00 Levofloxacin/Dextrose 5%-Water [Levaquin in D5W 750 MG/150 ML] 750 mg Premix Bag 1 bag IV Q24H 07/16/21 11:30 GLUCOSE POC LAB TO COLLECT JPM [POC] QIDACANDBED 07/16/21 16:30 GLUCOSE POC LAB TO COLLECT JPM [POC] QIDACANDBED 07/16/21 21:00 GLUCOSE POC LAB TO COLLECT JPM [POC] QIDACANDBED 07/17/21 07:30 GLUCOSE POC LAB TO COLLECT JPM [POC] QIDACANDBED 07/17/21 11:30 GLUCOSE POC LAB TO COLLECT JPM [POC] QIDACANDBED 07/17/21 16:30 GLUCOSE POC LAB TO COLLECT JPM [POC] QIDACANDBED 07/17/21 21:00 GLUCOSE POC LAB TO COLLECT JPM [POC] QIDACANDBED 07/18/21 07:30 GLUCOSE POC LAB TO COLLECT JPM [POC] QIDACANDBED 07/18/21 11:30 GLUCOSE POC LAB TO COLLECT JPM [POC] QIDACANDBED 07/18/21 16:30 GLUCOSE POC LAB TO COLLECT JPM [POC] QIDACANDBED 07/18/21 21:00 GLUCOSE POC LAB TO COLLECT JPM [POC] QIDACANDBED 07/19/21 07:30 GLUCOSE POC LAB TO COLLECT JPM [POC] QIDACANDBED 07/19/21 11:30 GLUCOSE POC LAB TO COLLECT JPM [POC] QIDACANDBED 07/19/21 16:30 GLUCOSE POC LAB TO COLLECT JPM [POC] QIDACANDBED 07/19/21 21:00 GLUCOSE POC LAB TO COLLECT JPM [POC] QIDACANDBED 07/20/21 07:30 GLUCOSE POC LAB TO COLLECT JPM [POC] QIDACANDBED 07/20/21 11:30 GLUCOSE POC LAB TO COLLECT JPM [POC] QIDACANDBED 07/20/21 16:30 GLUCOSE POC LAB TO COLLECT JPM [POC] QIDACANDBED 07/20/21 21:00 GLUCOSE POC LAB TO COLLECT JPM [POC] QIDACANDBED - Plan Plan:: ASSESSMENT AND PLAN - Right lower lobe pneumonia-complicated by acute respiratory failure with hypoxia and sepsis (resolved). Symptomatically feeling better. Still on oxygen but improving. Cultures negative so far. -Continue antibiotic coverage with levofloxacin -Symptomatic management of cough, fever and myalgia -Supplement oxygen, wean as able Type 2 diabetes mellitus-controlled by history. -Continue Trulicity -Restart Metformin Schizophrenia-stable. Continue home meds Obesity with BMI greater than 40- Maintenance issues - -DVT prophylaxis-SCD -GI prophylaxis-PPI -Nutrition-consistent carbohydrate -Welch catheter-not indicated CODE STATUS -full code Admission justification -this patient will be admitted for inpatient services and is medically appropriate meeting medical necessity for inpatient admission as outlined in my documentation. I reasonably expect the patient will require inpatient services that span a period time over 2 midnights. I reasonably expect this patient to be discharged or transferred within 96 hours after admission to the [facility]. Disposition -I anticipate discharge home after the hospital stay Primary care physician -Dr. Crystal Lima M.D.
[2021-07-16] MEDS: Cholecalciferol (Vitamin D3) 25 MCG Tab PO SCH (12:07)
[2021-07-16] MEDS: Ascorbic Acid 500 MG Tab PO SCH (12:07)
[2021-07-16] MEDS: Multivitamins with Iron/Calcium/Folic Acid/Minerals Tab PO SCH (12:07)
[2021-07-16] MEDS: OLANZapine 5 MG Tab PO PRN (13:41)
[2021-07-16] MEDS ORDERED: TRULICITY 0.75 MG/0.5 ML SUBCUT ONE (14:00)
[2021-07-16] MEDS: CLOZAPINE 200 MG PO SCH ×2 (19:51→20:01)
[2021-07-16] MEDS: Melatonin 3 MG Tab PO SCH ×2 (19:53→20:02)
[2021-07-16] MEDS: rOPINIRole 1 MG Tab PO SCH ×2 (19:58→20:01)
[2021-07-17] MEDS: Citalopram 20 MG Tab PO SCH ×2 (07:52→08:26)
[2021-07-17] MEDS: Acetaminophen 325 MG Tab PO PRN ×2 (07:52→16:13)
[2021-07-17] MEDS: metFORMIN 500 MG Tab PO SCH ×3 (07:52→16:45)
[2021-07-17] MEDS: Pantoprazole 40 MG Tab.CR PO SCH (07:52)
[2021-07-17] MEDS: Estradiol 0.5 MG Tab PO SCH ×2 (07:53→08:27)
[2021-07-17] MEDS: Multivitamins with Iron/Calcium/Folic Acid/Minerals Tab PO SCH ×2 (07:53→08:27)
[2021-07-17] MEDS: Ascorbic Acid 500 MG Tab PO SCH ×2 (07:53→08:27)
[2021-07-17] MEDS: ALPRAZolam 0.5 MG Tab PO SCH ×4 (07:53→19:40)
[2021-07-17] MEDS: OLANZapine 5 MG Tab PO SCH ×3 (07:53→19:32)
[2021-07-17] MEDS: tiZANidine 2 MG Tab PO SCH ×4 (07:53→20:32)
[2021-07-17] MEDS: Lactobacillus Rhamnosus GG (Probiotic) Cap PO SCH ×3 (07:53→19:33)
[2021-07-17] MEDS: Cholecalciferol (Vitamin D3) 25 MCG Tab PO SCH ×2 (07:53→08:27)
[2021-07-17] MEDS: Gabapentin 400 MG Cap PO SCH ×4 (07:53→19:33)
[2021-07-17] MEDS: PIROXICAM 20 MG PO SCH ×2 (07:54→08:27)
[2021-07-17] MEDS ORDERED: METFORMIN 750 MG PO SCH (09:00)
[2021-07-17] MEDS: Levofloxacin/Dextrose 5%-Water 750 MG in Premix Bag 1 BAG IV SCH (10:31)
--- NOTE | 2021-07-17 11:59 | PCM.PN ---
- General Info Date of Service: 07/17/21 Subjective Update: No acute events overnight. Patient reports that she feels better today with less shortness of breath. Cough is minimal. No fevers. Appetite and strength are improving. Still requiring supplemental oxygen. Cultures negative so far. Functional Status: Reports: Pain Controlled, Tolerating Diet - Review of Systems General: Denies: Fever Pulmonary: Denies: Shortness of Breath - Patient Data Vitals - Most Recent: Last Vital Signs Temp 36.6 C 07/17/21 11:10 Pulse 95 07/17/21 11:10 Resp 18 07/17/21 11:10 BP 118/77 07/17/21 11:10 Pulse Ox 90 L 07/17/21 11:10 Weight - Most Recent: 117.48 kg I&O - Last 24 Hours: Intake & Output 07/16/21 07/17/21 07/17/21 22:59 06:59 14:59 Intake Total 355 1100 630 Output Total 900 1100 750 Balance -545 0 -120 Lab Results Last 24 Hours: Laboratory Results - last 24 hr 07/16/21 Range/Units 16:27 POC Glucose 153 H (74-106) mg/dL Diego Results Last 24 Hours: Microbiology 07/15/21 11:02 Aerobic Blood Culture - Preliminary Blood - Arterial Line - Abg NO GROWTH AFTER 2 DAYS Anaerobic Blood Culture - Preliminary NO GROWTH AFTER 2 DAYS 07/15/21 10:41 Aerobic Blood Culture - Preliminary Blood - Arm, Left NO GROWTH AFTER 2 DAYS Anaerobic Blood Culture - Preliminary NO GROWTH AFTER 2 DAYS Med Orders - Current: Current Medications Acetaminophen (Acetaminophen 325 Mg Tab) 650 mg PO Q4H PRN PRN Reason: Pain (Mild 1-3)/fever Last Admin: 07/17/21 07:52 Dose: 650 mg Documented by: Albuterol (Albuterol 0.083% 2.5 Mg/3 Ml Neb Soln) 2.5 mg NEB Q4H PRN PRN Reason: Shortness Of Breath/wheezing Alprazolam (Alprazolam 0.5 Mg Tab) 1 mg PO TID@0800,1400,2000 [facility] Ascorbic Acid (Ascorbic Acid 500 Mg Tab) 500 mg PO DAILY@0800 [facility] Cholecalciferol (Cholecalciferol (Vitamin D3) 25 Mcg Tab) 25 mcg PO DAILY@0800 [facility] Citalopram Hydrobromide (Citalopram 20 Mg Tab) 40 mg PO DAILY@0800 [facility] Estradiol (Estradiol 0.5 Mg Tab) 1.5 mg PO DAILY@08 [facility] Gabapentin (Gabapentin 400 Mg Cap) 400 mg PO TID@0800,1399,1999 [facility] Levofloxacin/Dextrose 750 mg/ (Premix) 150 mls @ 100 mls/hr IV Q24H [facility] Last Admin: 07/17/21 10:31 Dose: 100 mls/hr Documented by: Ibuprofen (Ibuprofen 600 Mg Tab) 600 mg PO Q6H PRN PRN Reason: Pain/Fever Lactobacillus Rhamnosus (Lactobacillus Rhamnosus Gg (Probiotic) Cap) 1 cap PO BID@799,1999 [facility] Lorazepam (Lorazepam 2 Mg/Ml Sdv) 0.5 mg IVPUSH Q4H PRN PRN Reason: Nausea/Vomiting Melatonin (Melatonin 3 Mg Tab) 9 mg PO BEDTIME [facility] Last Admin: 07/16/21 20:02 Dose: Not Given Documented by: Metformin HCl (Metformin 500 Mg Tab) 250 mg PO TIDMEALS [facility] Last Admin: 07/17/21 11:45 Dose: 250 mg Documented by: Multivitamins/Minerals (Multivitamins With Iron/Calcium/Folic Acid/Minerals Tab) 1 tab PO DAILY@799 [facility] Olanzapine (Olanzapine 5 Mg Tab) 15 mg PO DAILY PRN PRN Reason: Anxiety Last Admin: 07/16/21 13:41 Dose: 15 mg Documented by: Olanzapine (Olanzapine 5 Mg Tab) 15 mg PO BID@799,1999 [facility] Ondansetron HCl (Ondansetron 4 Mg/2 Ml Sdv) 4 mg IV Q6H PRN PRN Reason: Nausea/Vomiting Ondansetron HCl (Ondansetron 4 Mg Tab.Dis) 4 mg PO Q6H PRN PRN Reason: Nausea able to take PO Pantoprazole Sodium (Pantoprazole 40 Mg Tab.Cr) 40 mg PO ACBREAKFAST [facility] Last Admin: 07/17/21 07:52 Dose: 40 mg Documented by: Trulicity 0.75mg/0. (5ml Pen (Ptom)) 0.75 each SUBCUT Q7D [facility] Clozapine 200mg (Ptom) 0 each PO DAILY@1999 [facility] Piroxicam 20mg Cap ( (Ptom)) 1 each PO DAILY@08 [facility] Polyethylene Glycol (Polyethylene Glycol 3350 Powder 17 Gm Packet) 17 gm PO DAILY PRN PRN Reason: Constipation Last Admin: 07/17/21 08:01 Dose: 17 gm Documented by: Ropinirole HCl (Ropinirole 1 Mg Tab) 1 mg PO DAILY@1999 [facility] Senna/Docusate Sodium (Docusate Sodium/Sennosides 50-8.6 Mg Tab) 1 tab PO BID PRN PRN Reason: Constipation Tizanidine HCl (Tizanidine 2 Mg Tab) 2 mg PO TID@0800,1400,1999 [facility] Discontinued Medications Acetaminophen (Acetaminophen 325 Mg Tab) 650 mg PO NOW ONE Stop: 07/15/21 13:39 Last Admin: 07/15/21 14:09 Dose: 650 mg Documented by: Alprazolam (Alprazolam 0.5 Mg Tab) 1 mg PO TID [facility] Last Admin: 07/17/21 08:27 Dose: Not Given Documented by: Ascorbic Acid (Ascorbic Acid 500 Mg Tab) 500 mg PO DAILY [facility] Last Admin: 07/17/21 08:27 Dose: Not Given Documented by: Cholecalciferol (Cholecalciferol (Vitamin D3) 25 Mcg Tab) 25 mcg PO DAILY [facility] Last Admin: 07/17/21 08:27 Dose: Not Given Documented by: Citalopram Hydrobromide (Citalopram 20 Mg Tab) 40 mg PO DAILY [facility] Last Admin: 07/17/21 08:26 Dose: Not Given Documented by: Estradiol (Estradiol 0.5 Mg Tab) 1.5 mg PO DAILY [facility] Last Admin: 07/17/21 08:27 Dose: Not Given Documented by: Gabapentin (Gabapentin 400 Mg Cap) 400 mg PO TID [facility] Last Admin: 07/17/21 08:27 Dose: Not Given Documented by: Lactated Ringer's (Ringers, Lactated) 1,000 mls @ 999 mls/hr IV ASDIRECTED [facility] Last Admin: 07/15/21 10:47 Dose: 999 mls/hr Documented by: Levofloxacin/Dextrose 750 mg/ (Premix) 150 mls @ 100 mls/hr IV Q24H [facility] Last Admin: 07/15/21 10:47 Dose: 100 mls/hr Documented by: Lactated Ringer's (Ringers, Lactated) 1,000 mls @ 999 mls/hr IV BOLUS ONE Stop: 07/15/21 13:53 Last Admin: 07/15/21 12:54 Dose: 999 mls/hr Documented by: Insulin Human Lispro (Insulin Lispro 100 Unit/Ml 3 Ml Kwikpen) 0 unit SUBCUT Q IDACANDBED [facility]; Protocol Last Admin: 07/16/21 11:41 Dose: Not Given Documented by: Lactobacillus Rhamnosus (Lactobacillus Rhamnosus Gg (Probiotic) Cap) 1 cap PO BID [facility] Last Admin: 07/17/21 08:27 Dose: Not Given Documented by: Multivitamins/Minerals (Multivitamins With Iron/Calcium/Folic Acid/Minerals Tab) 1 tab PO DAILY [facility] Last Admin: 07/17/21 08:27 Dose: Not Given Documented by: Olanzapine (Olanzapine 5 Mg Tab) 15 mg PO ONETIME ONE Stop: 07/15/21 13:39 Last Admin: 07/15/21 14:09 Dose: 15 mg Documented by: Olanzapine (Olanzapine 5 Mg Tab) 15 mg PO BID [facility] Last Admin: 07/17/21 08:28 Dose: Not Given Documented by: Clozapine 200mg (Ptom) 0 each PO BEDTIME [facility] Last Admin: 07/16/21 20:01 Dose: Not Given Documented by: Trulicity 0.75mg/0. (5ml Pen (Ptom)) 0.75 each SUBCUT ONETIME ONE Stop: 07/16/21 14:01 Last Admin: 07/16/21 14:31 Dose: 0.75 each Documented by: Piroxicam 20mg Cap ( (Ptom)) 1 each PO DAILY [facility] Last Admin: 07/17/21 08:27 Dose: Not Given Documented by: Ropinirole HCl (Ropinirole 1 Mg Tab) 1 mg PO BEDTIME [facility] Last Admin: 07/16/21 20:01 Dose: Not Given Documented by: Tizanidine HCl (Tizanidine 2 Mg Tab) 2 mg PO TID [facility] Last Admin: 07/17/21 08:28 Dose: Not Given Documented by: - Exam Quality Assessment: Supplemental Oxygen General: Alert, Oriented, Cooperative, No Acute Distress Lungs: Clear to Auscultation, Normal Respiratory Effort. No: Crackles Cardiovascular: Regular Rate, Regular Rhythm GI/Abdominal Exam: Soft, No Distention Extremities: No Pedal Edema Psy/Mental Status: Alert, Normal Affect - Patient Data Lab Results Last 24 hrs: Laboratory Results - last 24 hr 07/16/21 Range/Units 16:27 POC Glucose 153 H (74-106) mg/dL Result Diagrams: 07/16/21 03:00 07/16/21 05:30 Diego Results Last 24 hrs: Microbiology 07/15/21 11:02 Aerobic Blood Culture - Preliminary Blood - Arterial Line - Abg NO GROWTH AFTER 2 DAYS Anaerobic Blood Culture - Preliminary NO GROWTH AFTER 2 DAYS 07/15/21 10:41 Aerobic Blood Culture - Preliminary Blood - Arm, Left NO GROWTH AFTER 2 DAYS Anaerobic Blood Culture - Preliminary NO GROWTH AFTER 2 DAYS Sepsis Event Note - Evaluation Sepsis Screening Result: Possible Sepsis Risk - Focused Exam Vital Signs: Vital Signs Temp Pulse Resp BP BP Pulse Ox 07/17/21 11:10 36.6 C 95 18 118/77 90 L 07/17/21 07:00 35.3 C L 83 18 114/66 92 L 07/17/21 04:00 35.2 C L 86 16 101/54 L 90 L - Problem List & Annotations (1) Right lower lobe pneumonia SNOMED Code(s): 606832302 Code(s): J18.9 - PNEUMONIA, UNSPECIFIED ORGANISM Status: Acute Current Visit: Yes Qualifiers: Pneumonia type: due to unspecified organism Qualified Code(s): J18.9 - Pneumonia, unspecified organism (2) Acute respiratory failure with hypoxia SNOMED Code(s): 97310519, 136467512 Code(s): J96.01 - ACUTE RESPIRATORY FAILURE WITH HYPOXIA Status: Acute Current Visit: Yes (3) Sepsis SNOMED Code(s): 45450235 Code(s): A41.9 - SEPSIS, UNSPECIFIED ORGANISM Status: Acute Current Visit: Yes Qualifiers: Sepsis type: sepsis due to unspecified organism Sepsis acute organ dysfunction status: with acute organ dysfunction Severe sepsis acute organ dysfunction type: acute respiratory failure Acute respiratory failure type: with hypoxia Severe sepsis shock status: without septic shock Qualified Code(s): A41.9 - Sepsis, unspecified organism; R65.20 - Severe sepsis without septic shock; J96.01 - Acute respiratory failure with hypoxia (4) Schizophrenia, catatonic type SNOMED Code(s): 561503581 Code(s): F20.2 - CATATONIC SCHIZOPHRENIA Status: Chronic Current Visit: No (5) Type 2 diabetes mellitus SNOMED Code(s): 27793956 Code(s): E11.9 - TYPE 2 DIABETES MELLITUS WITHOUT COMPLICATIONS Status: Chronic Current Visit: No Qualifiers: Diabetes mellitus jail insulin use: without marine oil terminal superintendent use Diabetes mellitus complication status: without complication Qualified Code(s): E11.9 - Type 2 diabetes mellitus without complications (6) Morbid obesity with BMI of 45.0-49.9, adult SNOMED Code(s): 674508557, 43779972511749 Code(s): E66.01 - MORBID (SEVERE) OBESITY DUE TO EXCESS CALORIES; Z68.42 - BODY MASS INDEX [BMI] 45.0-49.9, ADULT Status: Chronic Current Visit: No - Problem List Review Problem List Initiated/Reviewed/Updated: Yes - My Orders Last 24 Hours: My Active Orders 07/16/21 11:00 Levofloxacin/Dextrose 5%-Water [Levaquin in D5W 750 MG/150 ML] 750 mg Premix Bag 1 bag IV Q24H 07/16/21 13:32 OLANZapine [ZyPREXA] 15 mg PO DAILY PRN 07/16/21 19:35 RT Incentive Spirometry [RC] ASDIRECTED 07/17/21 08:00 metFORMIN [Glucophage] 250 mg PO TIDMEALS 07/17/21 14:00 ALPRAZolam [Xanax] 1 mg PO TID@0800,1399,1999 Gabapentin [Neurontin] 400 mg PO TID@0800,1399,1999 tiZANidine [Zanaflex] 2 mg PO TID@0800,1399,199907/17/21 20:00 Lactobacillus Rhamnosus GG [Culturelle] 1 cap PO BID@08,1999 OLANZapine [ZyPREXA] 15 mg PO BID@799,1999 Patient's Own Medication [Ptom] 0 each PO DAILY@1999 rOPINIRole [Requip] 1 mg PO DAILY@199907/18/21 08:00 Ascorbic Acid [Vitamin C] 500 mg PO DAILY@0800 Cholecalciferol (Vitamin D3) [Vitamin D3] 25 mcg PO DAILY@0800 Citalopram [Celexa] 40 mg PO DAILY@0800 Multivitamins w-Iron/Ca/FA/Min [Thera M Plus] 1 tab PO DAILY@0800 Patient's Own Medication [Ptom] 1 each PO DAILY@0800 estradioL 1.5 mg PO DAILY@0800 07/18/21 11:00 levoFLOXacin [Levaquin] 250 mg PO Q24H levoFLOXacin [Levaquin] 500 mg PO Q24H 07/23/21 09:00 Patient's Own Medication [Ptom] 0.75 each SUBCUT Q7D - Plan Plan:: ASSESSMENT AND PLAN - Right lower lobe pneumonia-complicated by acute respiratory failure with hypoxia and sepsis (resolved). Symptomatically doing well. Still hypoxic but is improving. -Continue antibiotic coverage with levofloxacin (changed to oral) -Symptomatic management of cough, fever and myalgia -Supplement oxygen, wean as able Type 2 diabetes mellitus-controlled. -Continue Trulicity -Continue Metformin Schizophrenia-stable. Continue home meds Obesity with BMI greater than 40- Maintenance issues - -DVT prophylaxis-SCD -GI prophylaxis-PPI -Nutrition-consistent carbohydrate Disposition -I anticipate discharge home after the hospital stay, possibly tomorrow if stable overnight Primary care physician -Dr. Crystal Lima M.D.
[2021-07-17] MEDS: OLANZapine 5 MG Tab PO PRN (12:48)
[2021-07-17] MEDS: rOPINIRole 1 MG Tab PO SCH (19:33)
[2021-07-17] MEDS: CLOZAPINE 200 MG PO SCH (19:33)
[2021-07-17] MEDS: Melatonin 3 MG Tab PO SCH ×2 (19:33→20:30)
[2021-07-18] MEDS: ALPRAZolam 0.5 MG Tab PO SCH ×3 (08:01→19:45)
[2021-07-18] MEDS: Acetaminophen 325 MG Tab PO PRN ×2 (08:01→19:44)
[2021-07-18] MEDS: Citalopram 20 MG Tab PO SCH (08:02)
[2021-07-18] MEDS: OLANZapine 5 MG Tab PO SCH ×2 (08:03→19:44)
[2021-07-18] MEDS: Estradiol 0.5 MG Tab PO SCH (08:03)
[2021-07-18] MEDS: tiZANidine 2 MG Tab PO SCH ×3 (08:04→19:45)
[2021-07-18] MEDS: Pantoprazole 40 MG Tab.CR PO SCH (08:04)
[2021-07-18] MEDS: Multivitamins with Iron/Calcium/Folic Acid/Minerals Tab PO SCH (08:04)
[2021-07-18] MEDS: Gabapentin 400 MG Cap PO SCH ×3 (08:04→19:45)
[2021-07-18] MEDS: metFORMIN 500 MG Tab PO SCH ×3 (08:05→17:59)
[2021-07-18] MEDS: Lactobacillus Rhamnosus GG (Probiotic) Cap PO SCH ×2 (08:06→19:45)
[2021-07-18] MEDS: PIROXICAM 20 MG PO SCH (08:07)
[2021-07-18] MEDS ORDERED: predniSONE 20 MG Tab PO ONE (09:00)
[2021-07-18] MEDS: Cholecalciferol (Vitamin D3) 25 MCG Tab PO SCH (09:22)
[2021-07-18] MEDS: Ascorbic Acid 500 MG Tab PO SCH (09:22)
[2021-07-18] MEDS: Ibuprofen 600 MG Tab PO PRN ×2 (09:28→16:20)
--- NOTE | 2021-07-18 10:05 | PCM.PN ---
- General Info Date of Service: 07/18/21 Subjective Update: No acute events overnight. Patient does not feel well today and reports some burning in the upper chest that is worse with deep breaths. Shortness of breath is minimal and not much of a cough. She reports that her myalgias have returned. She reports a diffuse headache. Vital signs have been stable. She does continue to require supplemental oxygen. - Patient Data Vitals - Most Recent: Last Vital Signs Temp 36.1 C 07/18/21 07:59 Pulse 94 07/18/21 07:59 Resp 18 07/18/21 07:59 BP 113/78 07/18/21 07:59 Pulse Ox 90 L 07/18/21 07:59 Weight - Most Recent: 117.48 kg I&O - Last 24 Hours: Intake & Output 07/17/21 07/18/21 07/18/21 22:59 06:59 14:59 Intake Total 1055 Output Total 1100 Balance -45 Diego Results Last 24 Hours: Microbiology 07/15/21 11:02 Aerobic Blood Culture - Preliminary Blood - Arterial Line - Abg NO GROWTH AFTER 2 DAYS Anaerobic Blood Culture - Preliminary NO GROWTH AFTER 2 DAYS 07/15/21 10:41 Aerobic Blood Culture - Preliminary Blood - Arm, Left NO GROWTH AFTER 2 DAYS Anaerobic Blood Culture - Preliminary NO GROWTH AFTER 2 DAYS Med Orders - Current: Current Medications Acetaminophen (Acetaminophen 325 Mg Tab) 650 mg PO Q4H PRN PRN Reason: Pain (Mild 1-3)/fever Last Admin: 07/18/21 08:01 Dose: 650 mg Documented by: Albuterol (Albuterol 0.083% 2.5 Mg/3 Ml Neb Soln) 2.5 mg NEB Q4H PRN PRN Reason: Shortness Of Breath/wheezing Alprazolam (Alprazolam 0.5 Mg Tab) 1 mg PO TID@0800,1400,2000 [facility] Last Admin: 07/18/21 08:01 Dose: 1 mg Documented by: Ascorbic Acid (Ascorbic Acid 500 Mg Tab) 500 mg PO DAILY@0800 [facility] Last Admin: 07/18/21 09:22 Dose: 500 mg Documented by: Cholecalciferol (Cholecalciferol (Vitamin D3) 25 Mcg Tab) 25 mcg PO DAILY@0800 [facility] Last Admin: 07/18/21 09:22 Dose: 25 mcg Documented by: Citalopram Hydrobromide (Citalopram 20 Mg Tab) 40 mg PO DAILY@0800 [facility] Last Admin: 07/18/21 08:02 Dose: 40 mg Documented by: Estradiol (Estradiol 0.5 Mg Tab) 1.5 mg PO DAILY@0800 [facility] Last Admin: 07/18/21 08:03 Dose: 1.5 mg Documented by: Gabapentin (Gabapentin 400 Mg Cap) 400 mg PO TID@0800,1399,1999 [facility] Last Admin: 07/18/21 08:04 Dose: 400 mg Documented by: Ibuprofen (Ibuprofen 600 Mg Tab) 600 mg PO Q6H PRN PRN Reason: Pain/Fever Last Admin: 07/18/21 09:28 Dose: 600 mg Documented by: Lactobacillus Rhamnosus (Lactobacillus Rhamnosus Gg (Probiotic) Cap) 1 cap PO BID@799,1999 [facility] Last Admin: 07/18/21 08:06 Dose: 1 cap Documented by: Levofloxacin 250 mg/ (Levofloxacin 500 mg) 750 mg PO ACBREAKFAST [facility] Last Admin: 07/18/21 08:05 Dose: 750 mg Documented by: Lorazepam (Lorazepam 2 Mg/Ml Sdv) 0.5 mg IVPUSH Q4H PRN PRN Reason: Nausea/Vomiting Melatonin (Melatonin 3 Mg Tab) 9 mg PO BEDTIME [facility] Last Admin: 07/17/21 20:30 Dose: Not Given Documented by: Metformin HCl (Metformin 500 Mg Tab) 250 mg PO TIDMEALS [facility] Last Admin: 07/18/21 08:05 Dose: 250 mg Documented by: Multivitamins/Minerals (Multivitamins With Iron/Calcium/Folic Acid/Minerals Tab) 1 tab PO DAILY@0800 [facility] Last Admin: 07/18/21 08:04 Dose: 1 tab Documented by: Olanzapine (Olanzapine 5 Mg Tab) 15 mg PO DAILY PRN PRN Reason: Anxiety Last Admin: 07/17/21 12:48 Dose: 15 mg Documented by: Olanzapine (Olanzapine 5 Mg Tab) 15 mg PO BID@ [facility] Last Admin: 07/18/21 08:03 Dose: 15 mg Documented by: Ondansetron HCl (Ondansetron 4 Mg/2 Ml Sdv) 4 mg IV Q6H PRN PRN Reason: Nausea/Vomiting Ondansetron HCl (Ondansetron 4 Mg Tab.Dis) 4 mg PO Q6H PRN PRN Reason: Nausea able to take PO Pantoprazole Sodium (Pantoprazole 40 Mg Tab.Cr) 40 mg PO ACBREAKFAST [facility] Last Admin: 07/18/21 08:04 Dose: 40 mg Documented by: Trberkley 0.75mg/0. (5ml Pen (Ptom)) 0.75 each SUBCUT Q7D [facility] Clozapine 200mg (Ptom) 0 each PO DAILY@1999 [facility] Last Admin: 07/17/21 19:33 Dose: 1 each Documented by: Piroxicam 20mg Cap ( (Ptom)) 1 each PO DAILY@0800 [facility] Last Admin: 07/18/21 08:07 Dose: 1 each Documented by: Polyethylene Glycol (Polyethylene Glycol 3350 Powder 17 Gm Packet) 17 gm PO DAILY PRN PRN Reason: Constipation Last Admin: 07/17/21 08:01 Dose: 17 gm Documented by: Prednisone (Prednisone 20 Mg Tab) 20 mg PO WITHBREAKFAST [facility] Ropinirole HCl (Ropinirole 1 Mg Tab) 1 mg PO DAILY@1999 [facility] Last Admin: 07/17/21 19:33 Dose: 1 mg Documented by: Senna/Docusate Sodium (Docusate Sodium/Sennosides 50-8.6 Mg Tab) 1 tab PO BID PRN PRN Reason: Constipation Last Admin: 07/17/21 19:43 Dose: 1 tab Documented by: Tizanidine HCl (Tizanidine 2 Mg Tab) 2 mg PO TID@0800,1400,1999 [facility] Last Admin: 07/18/21 08:04 Dose: 2 mg Documented by: Discontinued Medications Acetaminophen (Acetaminophen 325 Mg Tab) 650 mg PO NOW ONE Stop: 07/15/21 13:39 Last Admin: 07/15/21 14:09 Dose: 650 mg Documented by: Alprazolam (Alprazolam 0.5 Mg Tab) 1 mg PO TID [facility] Last Admin: 07/17/21 08:27 Dose: Not Given Documented by: Ascorbic Acid (Ascorbic Acid 500 Mg Tab) 500 mg PO DAILY [facility] Last Admin: 07/17/21 08:27 Dose: Not Given Documented by: Cholecalciferol (Cholecalciferol (Vitamin D3) 25 Mcg Tab) 25 mcg PO DAILY [facility] Last Admin: 07/17/21 08:27 Dose: Not Given Documented by: Citalopram Hydrobromide (Citalopram 20 Mg Tab) 40 mg PO DAILY [facility] Last Admin: 07/17/21 08:26 Dose: Not Given Documented by: Estradiol (Estradiol 0.5 Mg Tab) 1.5 mg PO DAILY [facility] Last Admin: 07/17/21 08:27 Dose: Not Given Documented by: Gabapentin (Gabapentin 400 Mg Cap) 400 mg PO TID [facility] Last Admin: 07/17/21 08:27 Dose: Not Given Documented by: Lactated Ringer's (Ringers, Lactated) 1,000 mls @ 999 mls/hr IV ASDIRECTED [facility] Last Admin: 07/15/21 10:47 Dose: 999 mls/hr Documented by: Levofloxacin/Dextrose 750 mg/ (Premix) 150 mls @ 100 mls/hr IV Q24H [facility] Last Admin: 07/15/21 10:47 Dose: 100 mls/hr Documented by: Lactated Ringer's (Ringers, Lactated) 1,000 mls @ 999 mls/hr IV BOLUS ONE Stop: 07/15/21 13:53 Last Admin: 07/15/21 12:54 Dose: 999 mls/hr Documented by: Levofloxacin/Dextrose 750 mg/ (Premix) 150 mls @ 100 mls/hr IV Q24H [facility] Stop: 07/17/21 14:00 Last Admin: 07/17/21 10:31 Dose: 100 mls/hr Documented by: Insulin Human Lispro (Insulin Lispro 100 Unit/Ml 3 Ml Kwikpen) 0 unit SUBCUT QIDACANDBED [facility]; Protocol Last Admin: 07/16/21 11:41 Dose: Not Given Documented by: Lactobacillus Rhamnosus (Lactobacillus Rhamnosus Gg (Probiotic) Cap) 1 cap PO BID [facility] Last Admin: 07/17/21 08:27 Dose: Not Given Documented by: Multivitamins/Minerals (Multivitamins With Iron/Calcium/Folic Acid/Minerals Tab) 1 tab PO DAILY [facility] Last Admin: 07/17/21 08:27 Dose: Not Given Documented by: Olanzapine (Olanzapine 5 Mg Tab) 15 mg PO ONETIME ONE Stop: 07/15/21 13:39 Last Admin: 07/15/21 14:09 Dose: 15 mg Documented by: Olanzapine (Olanzapine 5 Mg Tab) 15 mg PO BID [facility] Last Admin: 07/17/21 08:28 Dose: Not Given Documented by: Clozapine 200mg (Ptom) 0 each PO BEDTIME [facility] Last Admin: 07/16/21 20:01 Dose: Not Given Documented by: Trulicity 0.75mg/0. (5ml Pen (Ptom)) 0.75 each SUBCUT ONETIME ONE Stop: 07/16/21 14:01 Last Admin: 07/16/21 14:31 Dose: 0.75 each Documented by: Piroxicam 20mg Cap ( (Ptom)) 1 each PO DAILY [facility] Last Admin: 07/17/21 08:27 Dose: Not Given Documented by: Prednisone (Prednisone 20 Mg Tab) 20 mg PO ONETIME ONE Stop: 07/18/21 09:01 Last Admin: 07/18/21 09:27 Dose: 20 mg Documented by: Ropinirole HCl (Ropinirole 1 Mg Tab) 1 mg PO BEDTIME [facility] Last Admin: 07/16/21 20:01 Dose: Not Given Documented by: Tizanidine HCl (Tizanidine 2 Mg Tab) 2 mg PO TID [facility] Last Admin: 07/17/21 08:28 Dose: Not Given Documented by: - Exam Quality Assessment: Supplemental Oxygen General: Alert, Oriented, Cooperative, No Acute Distress Lungs: Normal Respiratory Effort, Decreased Breath Sounds (Mild right lower lung). No: Crackles Cardiovascular: Regular Rhythm, Tachycardia GI/Abdominal Exam: Soft, No Distention Extremities: No Pedal Edema. No: Increased Warmth Skin: Warm, Dry Psy/Mental Status: Alert, Normal Affect - Patient Data Result Diagrams: 07/16/21 03:00 07/16/21 05:30 Diego Results Last 24 hrs: Microbiology 07/15/21 11:02 Aerobic Blood Culture - Preliminary Blood - Arterial Line - Abg NO GROWTH AFTER 2 DAYS Anaerobic Blood Culture - Preliminary NO GROWTH AFTER 2 DAYS 07/15/21 10:41 Aerobic Blood Culture - Preliminary Blood - Arm, Left NO GROWTH AFTER 2 DAYS Anaerobic Blood Culture - Preliminary NO GROWTH AFTER 2 DAYS Sepsis Event Note - Evaluation Sepsis Screening Result: No Definite Risk - Focused Exam Vital Signs: Vital Signs Temp Pulse Resp BP Pulse Ox 07/18/21 07:59 36.1 C 94 18 113/78 90 L 07/18/21 02:41 36.9 C 82 16 104/65 92 L 07/17/21 22:23 36.3 C 85 16 112/65 91 L - Problem List & Annotations (1) Right lower lobe pneumonia SNOMED Code(s): 230799527 Code(s): J18.9 - PNEUMONIA, UNSPECIFIED ORGANISM Status: Acute Current Visit: Yes Qualifiers: Pneumonia type: due to unspecified organism Qualified Code(s): J18.9 - Pneumonia, unspecified organism (2) Acute respiratory failure with hypoxia SNOMED Code(s): 41036347, 709117789 Code(s): J96.01 - ACUTE RESPIRATORY FAILURE WITH HYPOXIA Status: Acute Current Visit: Yes (3) Sepsis SNOMED Code(s): 86560464 Code(s): A41.9 - SEPSIS, UNSPECIFIED ORGANISM Status: Acute Current Visit: Yes Qualifiers: Sepsis type: sepsis due to unspecified organism Sepsis acute organ dysfunction status: with acute organ dysfunction Severe sepsis acute organ dysfunction type: acute respiratory failure Acute respiratory failure type: with hypoxia Severe sepsis shock status: without septic shock Qualified Code(s): A41.9 - Sepsis, unspecified organism; R65.20 - Severe sepsis without septic shock; J96.01 - Acute respiratory failure with hypoxia (4) Schizophrenia, catatonic type SNOMED Code(s): 955648047 Code(s): F20.2 - CATATONIC SCHIZOPHRENIA Status: Chronic Current Visit: No (5) Type 2 diabetes mellitus SNOMED Code(s): 88629958 Code(s): E11.9 - TYPE 2 DIABETES MELLITUS WITHOUT COMPLICATIONS Status: Chronic Current Visit: No Qualifiers: Diabetes mellitus prison insulin use: without prison use Diabetes mellitus complication status: without complication Qualified Code(s): E11.9 - Type 2 diabetes mellitus without complications (6) Morbid obesity with BMI of 45.0-49.9, adult SNOMED Code(s): 326817790, 77340910791560 Code(s): E66.01 - MORBID (SEVERE) OBESITY DUE TO EXCESS CALORIES; Z68.42 - BODY MASS INDEX [BMI] 45.0-49.9, ADULT Status: Chronic Current Visit: No - Problem List Review Problem List Initiated/Reviewed/Updated: Yes - My Orders Last 24 Hours: My Active Orders 07/17/21 14:00 ALPRAZolam [Xanax] 1 mg PO TID@0800,1400,2000 Gabapentin [Neurontin] 400 mg PO TID@799, tiZANidine [Zanaflex] 2 mg PO TID@799,1399,199907/17/21 20:00 Lactobacillus Rhamnosus GG [Culturelle] 1 cap PO BID@799,1999 OLANZapine [ZyPREXA] 15 mg PO BID@799,1999 Patient's Own Medication [Ptom] 0 each PO DAILY@1999 rOPINIRole [Requip] 1 mg PO DAILY@199907/18/21 07:30 Levofloxacin [Levaquin] 750 mg PO ACBREAKFAST 07/18/21 08:00 Ascorbic Acid [Vitamin C] 500 mg PO DAILY@0800 Cholecalciferol (Vitamin D3) [Vitamin D3] 25 mcg PO DAILY@08 Citalopram [Celexa] 40 mg PO DAILY@08 Multivitamins w-Iron/Ca/FA/Min [Thera M Plus] 1 tab PO DAILY@08 Patient's Own Medication [Ptom] 1 each PO DAILY@799 estradioL 1.5 mg PO DAILY@79907/19/21 08:00 predniSONE 20 mg PO WITHBREAKFAST 07/23/21 09:00 Patient's Own Medication [Ptom] 0.75 each SUBCUT Q7D - Plan Plan:: ASSESSMENT AND PLAN - Right lower lobe pneumonia-complicated by acute respiratory failure with hypoxia and sepsis (resolved). She has some burning chest pain today and continues to require oxygen. Myalgias have increased. Shortness of breath stable and minimal. -Trial of prednisone to help with her probable costochondritis -Continue antibiotic coverage with levofloxacin (changed to oral) -Symptomatic management of cough, fever and myalgia -Supplement oxygen, wean as able Type 2 diabetes mellitus-controlled. -Continue Trulicity -Continue Metformin -May need some sliding scale insulin with the addition of prednisone Schizophrenia-stable. Continue home meds Obesity with BMI greater than 40- Maintenance issues - -DVT prophylaxis-SCD -GI prophylaxis-PPI -Nutrition-consistent carbohydrate Disposition -I anticipate discharge home after the hospital stay, not quite ready for discharge, still requiring supplemental oxygen Primary care physician -Dr. Crystal Lima M.D.
[2021-07-18] MEDS ORDERED: Levofloxacin 500 MG Tab PO SCH (11:00)
[2021-07-18] MEDS ORDERED: Levofloxacin 250 MG Tab PO SCH (11:00)
[2021-07-18] MEDS: OLANZapine 5 MG Tab PO PRN (16:06)
[2021-07-18] MEDS: CLOZAPINE 200 MG PO SCH (19:43)
[2021-07-18] MEDS: rOPINIRole 1 MG Tab PO SCH (19:45)
[2021-07-18] MEDS: Melatonin 3 MG Tab PO SCH ×2 (19:45→22:17)
[2021-07-19] MEDS ORDERED: predniSONE 20 MG Tab PO SCH (08:00)
[2021-07-19] MEDS: Estradiol 0.5 MG Tab PO SCH (08:33)
[2021-07-19] MEDS: metFORMIN 500 MG Tab PO SCH (08:33)
[2021-07-19] MEDS: ALPRAZolam 0.5 MG Tab PO SCH (08:33)
[2021-07-19] MEDS: OLANZapine 5 MG Tab PO SCH (08:34)
[2021-07-19] MEDS: tiZANidine 2 MG Tab PO SCH (08:34)
[2021-07-19] MEDS: Ascorbic Acid 500 MG Tab PO SCH (08:34)
[2021-07-19] MEDS: PIROXICAM 20 MG PO SCH (08:35)
[2021-07-19] MEDS: Gabapentin 400 MG Cap PO SCH (08:35)
[2021-07-19] MEDS: Lactobacillus Rhamnosus GG (Probiotic) Cap PO SCH (08:35)
[2021-07-19] MEDS: Citalopram 20 MG Tab PO SCH (08:35)
[2021-07-19] MEDS: Multivitamins with Iron/Calcium/Folic Acid/Minerals Tab PO SCH (08:36)
[2021-07-19] MEDS: Cholecalciferol (Vitamin D3) 25 MCG Tab PO SCH (08:36)
[2021-07-19] MEDS: Pantoprazole 40 MG Tab.CR PO SCH (08:36)
[2021-07-19] MEDS: Ibuprofen 600 MG Tab PO PRN (08:43)
--- NOTE | 2021-07-19 10:21 | PCM.DCSUM1 ---
Discharge Summary - Hospital Course Brief History: 41-year-old female with history of schizophrenia who presented with myalgias, weakness and shortness of breath. She was admitted for management of right lower lobe pneumonia with acute respiratory failure with hypoxia. Diagnosis: Stroke: No - Discharge Data Discharge Date: 07/19/21 Discharge Disposition: Home, W Home Health Agency 06 Condition: Good - Referral to Home Health Date of Face to Face Encounter: 07/19/21 Reason for Homebound Status: weakness and dyspnea after pneumonia Primary Care Physician: PCP None Skilled Need: PT - Discharge Diagnosis/Problem(s) (1) Right lower lobe pneumonia SNOMED Code(s): 066257930 ICD Code: J18.9 - PNEUMONIA, UNSPECIFIED ORGANISM Status: Acute Qualifiers: Pneumonia type: due to unspecified organism Qualified Code(s): J18.9 - Pneumonia, unspecified organism (2) Acute respiratory failure with hypoxia SNOMED Code(s): 29709933, 726677636 ICD Code: J96.01 - ACUTE RESPIRATORY FAILURE WITH HYPOXIA Status: Acute (3) Sepsis SNOMED Code(s): 30305654 ICD Code: A41.9 - SEPSIS, UNSPECIFIED ORGANISM Status: Acute Qualifiers: Sepsis type: sepsis due to unspecified organism Sepsis acute organ dysfunction status: with acute organ dysfunction Severe sepsis acute organ dysfunction type: acute respiratory failure Acute respiratory failure type: with hypoxia Severe sepsis shock status: without septic shock Qualified Code(s): A41.9 - Sepsis, unspecified organism; R65.20 - Severe sepsis without septic shock; J96.01 - Acute respiratory failure with hypoxia (4) Schizophrenia, catatonic type SNOMED Code(s): 471025113 ICD Code: F20.2 - CATATONIC SCHIZOPHRENIA Status: Chronic (5) Type 2 diabetes mellitus SNOMED Code(s): 17670845 ICD Code: E11.9 - TYPE 2 DIABETES MELLITUS WITHOUT COMPLICATIONS Status: Chronic Qualifiers: Diabetes mellitus 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 Work-up in the emergency room suggested a right lower lung pneumonia with acute respiratory failure with hypoxia. She had a mild leukocytosis. There was evidence for sepsis including elevated lactic acid, tachycardia and respiratory failure. She was admitted for further management. She was started on levofloxacin for management of the pneumonia. Serial lactic acid levels showed resolution. Sepsis resolved fairly quickly. Symptomatically she felt better over the next couple of days and we are able to wean down but not off the supplemental oxygen. Her white count normalized. She did not have any fevers. Cultures were negative. The day prior to discharge she reported an increase in symptoms including increasing myalgias and headache as well as a burning chest pain. We did start her on steroids to help calm down the inflammatory part of the infection. These worked nicely with significant improvement in her symptoms by the morning of discharge. We were able to wean her off the supplemental oxygen. Appetite has been good. She has been up and walking in the hallways. She feels well enough to go home at this time. I think she is safe for outpatient management at this point. She has received 5 doses of antibiotics prior to discharge. She will need 2 more days of antibiotics and steroids. She has follow-up scheduled next week. - Patient Instructions Diet: Diabetic Diet Activity: As Tolerated Notify Provider of: Fever Other/Special Instructions: 1. You were in the hospital for management of a right lower lobe pneumonia complicated by acute respiratory failure with hypoxia. Your condition has been improving with antibiotic therapy as well as additional cares provided in the hospital. We have been able to wean you off of the supplemental oxygen. I do recommend additional therapy with both antibiotics and steroids after the hospital stay. Please take levofloxacin 750 mg and prednisone 20 mg once daily in the morning for 2 doses. Your first dose outside of the hospital will be due on Wednesday morning and the last dose on Wednesday. You may increase your activity as tolerated. 2. Continue your usual home medications as previously prescribed. 3. Follow up with your primary provider as scheduled - Discharge Plan *PRESCRIPTION DRUG MONITORING PROGRAM REVIEWED*: Not Applicable *COPY OF PRESCRIPTION DRUG MONITORING REPORT IN PATIENT ROSIE: Not Applicable Prescriptions/Med Rec: Levofloxacin 750 mg PO WITHBREAKFAST #2 tablet Multivit with Calcium,Iron,Min [One Daily Women's] 1 each PO DAILY #30 tablet predniSONE 20 mg PO WITHBREAKFAST #2 tablet Ascorbic Acid [Vitamin C] 500 mg PO DAILY@0800 #30 tablet Cholecalciferol (Vitamin D3) [Vitamin D3] 25 mcg PO DAILY@0800 #30 tablet Home Medications: Home Meds Citalopram Hydrobromide [Celexa] 40 mg PO DAILY 07/23/20 [History] Gabapentin [Neurontin] 400 mg PO TID 07/23/20 [History] OLANZapine [Olanzapine] 15 mg PO BID 07/23/20 [History] Omeprazole 20 mg PO DAILY 07/23/20 [History] cloZAPine [Clozapine] 200 mg PO BEDTIME 07/23/20 [History] estradioL [Estradiol] 1.5 mg PO DAILY 07/23/20 [History] metFORMIN [Glucophage XR] 750 mg PO DAILY 07/23/20 [History] rOPINIRole [Requip] 1 mg PO BEDTIME 07/23/20 [History] tiZANidine 2 mg PO TID 07/23/20 [History] lisinopriL [Prinivil] 2.5 mg PO BID 11/25/20 [History] ALPRAZolam [Xanax] 1 mg PO TID 07/15/21 [History] Dulaglutide [Trulicity] 0.75 mg SQ WEEKLY 07/15/21 [History] Ergocalciferol (Vitamin D2) [Vitamin D2] 1.25 mg PO WEEKLY 07/15/21 [History] polyethylene glycoL 3350 [MiraLAX] 17 gm PO DAILY 07/15/21 [History] Piroxicam 1 tab PO DAILY 07/16/21 [History] Ascorbic Acid [Vitamin C] 500 mg PO DAILY@0800 #30 tablet 07/19/21 [Rx] Cholecalciferol (Vitamin D3) [Vitamin D3] 25 mcg PO DAILY@0800 #30 tablet 07/19/21 [Rx] Levofloxacin 750 mg PO WITHBREAKFAST #2 tablet 07/19/21 [Rx] Multivit with Calcium,Iron,Min [One Daily Women's] 1 each PO DAILY #30 tablet 07/19/21 [Rx] predniSONE 20 mg PO WITHBREAKFAST #2 tablet 07/19/21 [Rx] Oxygen Therapy Mode: Room Air Patient Handouts: Levofloxacin tablets, Community-Acquired Pneumonia, Adult, [id number] Referrals: Crystal Loza MD [Ordering Only Provider] - 07/24/21 1:40 pm (Please arrive 15 minutes early to register for your appointment.) - Discharge Summary/Plan Comment DC Time >30 min.: Yes Total # of Minutes for Discharge Time: 35 - set up home care - Patient Data Vitals - Most Recent: Last Vital Signs Temp 35.9 C L 07/19/21 10:06 Pulse 85 07/19/21 10:06 Resp 16 07/19/21 10:06 BP 99/70 07/19/21 10:06 Pulse Ox 89 L 07/19/21 10:06 Weight - Most Recent: 117.48 kg I&O - Last 24 hours: Intake & Output 07/18/21 07/19/21 07/19/21 22:59 06:59 14:59 Intake Total 1460 500 Balance 1460 500 ZACKERY Results - Last 24 hrs: Microbiology 07/15/21 11:02 Aerobic Blood Culture - Preliminary Blood - Arterial Line - Abg NO GROWTH AFTER 3 DAYS Anaerobic Blood Culture - Preliminary NO GROWTH AFTER 3 DAYS 07/15/21 10:41 Aerobic Blood Culture - Preliminary Blood - Arm, Left NO GROWTH AFTER 3 DAYS Anaerobic Blood Culture - Preliminary NO GROWTH AFTER 3 DAYS Med Orders - Current: Current Medications Acetaminophen (Acetaminophen 325 Mg Tab) 650 mg PO Q4H PRN PRN Reason: Pain (Mild 1-3)/fever Last Admin: 07/18/21 19:44 Dose: 650 mg Documented by: Albuterol (Albuterol 0.083% 2.5 Mg/3 Ml Neb Soln) 2.5 mg NEB Q4H PRN PRN Reason: Shortness Of Breath/wheezing Alprazolam (Alprazolam 0.5 Mg Tab) 1 mg PO TID@0800,1400,2000 [facility] Last Admin: 07/19/21 08:33 Dose: 1 mg Documented by: Ascorbic Acid (Ascorbic Acid 500 Mg Tab) 500 mg PO DAILY@0800 [facility] Last Admin: 07/19/21 08:34 Dose: 500 mg Documented by: Cholecalciferol (Cholecalciferol (Vitamin D3) 25 Mcg Tab) 25 mcg PO DAILY@0800 [facility] Last Admin: 07/19/21 08:36 Dose: 25 mcg Documented by: Citalopram Hydrobromide (Citalopram 20 Mg Tab) 40 mg PO DAILY@0800 [facility] Last Admin: 07/19/21 08:35 Dose: 40 mg Documented by: Estradiol (Estradiol 0.5 Mg Tab) 1.5 mg PO DAILY@0800 [facility] Last Admin: 07/19/21 08:33 Dose: 1.5 mg Documented by: Gabapentin (Gabapentin 400 Mg Cap) 400 mg PO TID@08,1399,1999 [facility] Last Admin: 07/19/21 08:35 Dose: 400 mg Documented by: Ibuprofen (Ibuprofen 600 Mg Tab) 600 mg PO Q6H PRN PRN Reason: Pain/Fever Last Admin: 07/19/21 08:43 Dose: 600 mg Documented by: Lactobacillus Rhamnosus (Lactobacillus Rhamnosus Gg (Probiotic) Cap) 1 cap PO BID@ [facility] Last Admin: 07/19/21 08:35 Dose: 1 cap Documented by: Levofloxacin 250 mg/ (Levofloxacin 500 mg) 750 mg PO ACBREAKFAST [facility] Last Admin: 07/19/21 08:34 Dose: 750 mg Documented by: Lorazepam (Lorazepam 2 Mg/Ml Sdv) 0.5 mg IVPUSH Q4H PRN PRN Reason: Nausea/Vomiting Melatonin (Melatonin 3 Mg Tab) 9 mg PO BEDTIME [facility] Last Admin: 07/18/21 22:17 Dose: Not Given Documented by: Metformin HCl (Metformin 500 Mg Tab) 250 mg PO TIDMEALS [facility] Last Admin: 07/19/21 08:33 Dose: 250 mg Documented by: Multivitamins/Minerals (Multivitamins With Iron/Calcium/Folic Acid/Minerals Tab) 1 tab PO DAILY@08 [facility] Last Admin: 07/19/21 08:36 Dose: 1 tab Documented by: Olanzapine (Olanzapine 5 Mg Tab) 15 mg PO DAILY PRN PRN Reason: Anxiety Last Admin: 07/18/21 16:06 Dose: 15 mg Documented by: Olanzapine (Olanzapine 5 Mg Tab) 15 mg PO BID@ [facility] Last Admin: 07/19/21 08:34 Dose: 15 mg Documented by: Ondansetron HCl (Ondansetron 4 Mg/2 Ml Sdv) 4 mg IV Q6H PRN PRN Reason: Nausea/Vomiting Ondansetron HCl (Ondansetron 4 Mg Tab.Dis) 4 mg PO Q6H PRN PRN Reason: Nausea able to take PO Pantoprazole Sodium (Pantoprazole 40 Mg Tab.Cr) 40 mg PO ACBREAKFAST [facility] Last Admin: 07/19/21 08:36 Dose: 40 mg Documented by: Trberkley 0.75mg/0. (5ml Pen (Ptom)) 0.75 each SUBCUT Q7D [facility] Clozapine 200mg (Ptom) 0 each PO DAILY@1999 [facility] Last Admin: 07/18/21 19:43 Dose: 1 each Documented by: Piroxicam 20mg Cap ( (Ptom)) 1 each PO DAILY@08 [facility] Last Admin: 07/19/21 08:35 Dose: 1 each Documented by: Polyethylene Glycol (Polyethylene Glycol 3350 Powder 17 Gm Packet) 17 gm PO DAILY PRN PRN Reason: Constipation Last Admin: 07/17/21 08:01 Dose: 17 gm Documented by: Prednisone (Prednisone 20 Mg Tab) 20 mg PO WITHBREAKFAST [facility] Last Admin: 07/19/21 08:35 Dose: 20 mg Documented by: Ropinirole HCl (Ropinirole 1 Mg Tab) 1 mg PO DAILY@1999 [facility] Last Admin: 07/18/21 19:45 Dose: 1 mg Documented by: Senna/Docusate Sodium (Docusate Sodium/Sennosides 50-8.6 Mg Tab) 1 tab PO BID PRN PRN Reason: Constipation Last Admin: 07/17/21 19:43 Dose: 1 tab Documented by: Tizanidine HCl (Tizanidine 2 Mg Tab) 2 mg PO TID@0800,1399,1999 [facility] Last Admin: 07/19/21 08:34 Dose: 2 mg Documented by: Discontinued Medications Acetaminophen (Acetaminophen 325 Mg Tab) 650 mg PO NOW ONE Stop: 07/15/21 13:39 Last Admin: 07/15/21 14:09 Dose: 650 mg Documented by: Alprazolam (Alprazolam 0.5 Mg Tab) 1 mg PO TID [facility] Last Admin: 07/17/21 08:27 Dose: Not Given Documented by: Ascorbic Acid (Ascorbic Acid 500 Mg Tab) 500 mg PO DAILY [facility] Last Admin: 07/17/21 08:27 Dose: Not Given Documented by: Cholecalciferol (Cholecalciferol (Vitamin D3) 25 Mcg Tab) 25 mcg PO DAILY [facility] Last Admin: 07/17/21 08:27 Dose: Not Given Documented by: Citalopram Hydrobromide (Citalopram 20 Mg Tab) 40 mg PO DAILY [facility] Last Admin: 07/17/21 08:26 Dose: Not Given Documented by: Estradiol (Estradiol 0.5 Mg Tab) 1.5 mg PO DAILY [facility] Last Admin: 07/17/21 08:27 Dose: Not Given Documented by: Gabapentin (Gabapentin 400 Mg Cap) 400 mg PO TID [facility] Last Admin: 07/17/21 08:27 Dose: Not Given Documented by: Lactated Ringer's (Ringers, Lactated) 1,000 mls @ 999 mls/hr IV ASDIRECTED [facility] Last Admin: 07/15/21 10:47 Dose: 999 mls/hr Documented by: Levofloxacin/Dextrose 750 mg/ (Premix) 150 mls @ 100 mls/hr IV Q24H [facility] Last Admin: 07/15/21 10:47 Dose: 100 mls/hr Documented by: Lactated Ringer's (Ringers, Lactated) 1,000 mls @ 999 mls/hr IV BOLUS ONE Stop: 07/15/21 13:53 Last Admin: 07/15/21 12:54 Dose: 999 mls/hr Documented by: Levofloxacin/Dextrose 750 mg/ (Premix) 150 mls @ 100 mls/hr IV Q24H [facility] Stop: 07/17/21 14:00 Last Admin: 07/17/21 10:31 Dose: 100 mls/hr Documented by: Insulin Human Lispro (Insulin Lispro 100 Unit/Ml 3 Ml Kwikpen) 0 unit SUBCUT QIDACANDBED [facility]; Protocol Last Admin: 07/16/21 11:41 Dose: Not Given Documented by: Lactobacillus Rhamnosus (Lactobacillus Rhamnosus Gg (Probiotic) Cap) 1 cap PO BID [facility] Last Admin: 07/17/21 08:27 Dose: Not Given Documented by: Multivitamins/Minerals (Multivitamins With Iron/Calcium/Folic Acid/Minerals Tab) 1 tab PO DAILY [facility] Last Admin: 07/17/21 08:27 Dose: Not Given Documented by: Olanzapine (Olanzapine 5 Mg Tab) 15 mg PO ONETIME ONE Stop: 07/15/21 13:39 Last Admin: 07/15/21 14:09 Dose: 15 mg Documented by: Olanzapine (Olanzapine 5 Mg Tab) 15 mg PO BID [facility] Last Admin: 07/17/21 08:28 Dose: Not Given Documented by: Clozapine 200mg (Ptom) 0 each PO BEDTIME [facility] Last Admin: 07/16/21 20:01 Dose: Not Given Documented by: Trulicity 0.75mg/0. (5ml Pen (Ptom)) 0.75 each SUBCUT ONETIME ONE Stop: 07/16/21 14:01 Last Admin: 07/16/21 14:31 Dose: 0.75 each Documented by: Piroxicam 20mg Cap ( (Ptom)) 1 each PO DAILY [facility] Last Admin: 07/17/21 08:27 Dose: Not Given Documented by: Prednisone (Prednisone 20 Mg Tab) 20 mg PO ONETIME ONE Stop: 07/18/21 09:01 Last Admin: 07/18/21 09:27 Dose: 20 mg Documented by: Ropinirole HCl (Ropinirole 1 Mg Tab) 1 mg PO BEDTIME [facility] Last Admin: 07/16/21 20:01 Dose: Not Given Documented by: Tizanidine HCl (Tizanidine 2 Mg Tab) 2 mg PO TID [facility] Last Admin: 07/17/21 08:28 Dose: Not Given Documented by:
[2021-07-19] MEDS: OLANZapine 5 MG Tab PO PRN (10:50)
[2021-07-23] MEDS ORDERED: TRULICITY 0.75 MG/0.5 ML SUBCUT SCH (09:00)
== END 2021-07-19 11:05 | disposition home health service (06) | DRG 871 ==
LOC: JP.ED 09:52 → JP.MS 13:40
PROVIDERS: ADMIT Internal Medicine; ATTEND Internal Medicine
DX: A41.9 Sepsis, unspecified organism (principal); J96.01 Acute respiratory failure with hypoxia; J18.9 Pneumonia, unspecified organism; Z87.01 Personal history of pneumonia (recurrent); F20.2 Catatonic schizophrenia; Z68.42 Body mass index [BMI] 45.0-49.9, adult; R65.20 Severe sepsis without septic shock; E66.01 Morbid (severe) obesity due to excess calories; E78.00 Pure hypercholesterolemia, unspecified; K21.9 Gastro-esophageal reflux disease without esophagitis; F32.9 Major depressive disorder, single episode, unspecified; Z20.822 Contact with and (suspected) exposure to COVID-19; F20.9 Schizophrenia, unspecified; E55.9 Vitamin D deficiency, unspecified; M25.561 Pain in right knee; M25.512 Pain in left shoulder; G89.29 Other chronic pain; I10 Essential (primary) hypertension; G47.00 Insomnia, unspecified; E11.9 Type 2 diabetes mellitus without complications; Z88.2 Allergy status to sulfonamides; Z88.8 Allergy status to other drugs, medicaments and biological substances; Z79.899 Other long term (current) drug therapy; Z90.710 Acquired absence of both cervix and uterus; Z79.84 Long term (current) use of oral hypoglycemic drugs
CPT/HCPCS: 36415; 36600; 71046 ×2; 80053; 81001; 82803; 83605; 84145; 84484; 85025; 86140; 87040 ×2; 93005; 96365; 99285; J1956; J7120 ×2; U0002; 80048; 82947; 85027; A9270-GY; J7512

== ENCOUNTER 2021-09-07 07:11 | Inpatient (IN) | payer MEDICARE, MEDICAID ==
[2021-09-07] MEDS ORDERED: Sodium Chloride 0.9% 10 ML Syringe FLUSH PRN ×2 (07:27→13:30)
--- NOTE | 2021-09-07 07:28 | EDM.PDOC ---
ED HPI GENERAL MEDICAL PROBLEM - General Chief Complaint: Respiratory Problem Stated Complaint: SOB [facility]IA [facility] Time Seen by Provider: 09/07/21 07:15 Source of Information: Reports: Patient, EMS, Old Records History Limitations: Reports: No Limitations - History of Present Illness INITIAL COMMENTS - FREE TEXT/NARRATIVE: 41 yo female with mental illness and lives in a snf setting and who is not Covid vaccinated presents with SOB and cough. Had a mild sore throat yesterday. Slept until about 4 AM today and awoke SOB. Here via EMS. Has a pHx of pneumonia. Onset: Gradual Onset Date: 09/06/21 Duration: Day(s): (1), Getting Worse Location: Reports: Chest Quality: Reports: Other (no pain) Severity: Mild (SOB) Improves with: Reports: Other (Oxygen) Worsens with: Reports: Movement (exertion) Context: Reports: Other (See HPI) Associated Symptoms: Reports: Cough, Shortness of Breath. Denies: Fever/Chills Treatments CNS: Reports: Other (see below) (oxygen per EMS) Generalized Pain Score (Numeric/FACES): 8 - Related Data Allergies Allergy/AdvReac Type Severity Reaction Status Date / Time divalproex sodium Allergy Swelling Verified 09/07/21 07:19 [From Depakote] haloperidol Allergy Other Verified 09/07/21 07:19 pork derived (porcine) Allergy Other Verified 09/07/21 07:19 risperidone Allergy Other Verified 09/07/21 07:19 Sulfa (Sulfonamide Allergy Hives Verified 09/07/21 07:19 Antibiotics) Home Meds: Home Meds OLANZapine [Olanzapine] 15 mg PO BID 07/23/20 [History] Omeprazole 20 mg PO DAILY 07/23/20 [History] cloZAPine [Clozapine] 200 mg PO BEDTIME 07/23/20 [History] estradioL [Estradiol] 1.5 mg PO DAILY 07/23/20 [History] rOPINIRole [Requip] 1 mg PO BEDTIME 07/23/20 [History] tiZANidine 2 mg PO TID 07/23/20 [History] lisinopriL [Prinivil] 2.5 mg PO BID 11/25/20 [History] Dulaglutide [Trulicity] 0.75 mg SQ WEEKLY 07/15/21 [History] polyethylene glycoL 3350 [MiraLAX] 17 gm PO DAILY 07/15/21 [History] Ascorbic Acid [Vitamin C] 500 mg PO DAILY@0800 #30 tablet 07/19/21 [Rx] Cholecalciferol (Vitamin D3) [Vitamin D3] 25 mcg PO DAILY@0800 #30 tablet 07/19/21 [Rx] Multivit with Calcium,Iron,Min [One Daily Women's] 1 each PO DAILY #30 tablet 07/19/21 [Rx] *Quercetin 250 mg PO DAILY 09/07/21 [History] ALPRAZolam [Alprazolam] 1 mg PO TID 09/07/21 [History] Gabapentin [Neurontin] 600 mg PO TID 09/07/21 [History] Zinc 50 mg PO DAILY 09/07/21 [History] metFORMIN [Glucophage XR] 1,000 mg PO DAILY 09/07/21 [History] Past Medical History Cardiovascular History: Reports: High Cholesterol, Hypertension Respiratory History: Reports: Intubation, Previous, Pneumonia, Recurrent Other Respiratory History: hospitalized with AF Gastrointestinal History: Reports: GERD Musculoskeletal History: Reports: Other (See Below) Other Musculoskeletal History: plantar fascitis. chronic left shoulder painchronic right knee pain Psychiatric History: Reports: Depression, Schizophrenia, Other (See Below) Other Psychiatric History: catatonia. insomnia Endocrine/Metabolic History: Reports: Diabetes, Type II, Obesity/BMI 30+ Hematologic History: Reports: Other (See Below) Other Hematologic History: vitamin D deficency Dermatologic History: Reports: Other (See Below) Other Dermatologic History: rash - Infectious Disease History Infectious Disease History: Reports: None - Past Surgical History Head Surgeries/Procedures: Reports: None HEENT Surgical History: Reports: Tonsillectomy Respiratory Surgical History: Reports: Other (See Below) Other Respiratory Surgeries/Procedures: bronchoscopy Female Surgical History: Reports: Hysterectomy Musculoskeletal Surgical History: Reports: Arthroscopic Knee Social & Family History - Tobacco Use Tobacco Use Status *Q: Never Tobacco User - Caffeine Use Caffeine Use: Reports: Coffee, Energy Drinks, Soda, Tea ED ROS GENERAL - Review of Systems Review Of Systems: See Below Constitutional: Reports: Malaise. Denies: Fever, Chills HEENT: Reports: Throat Pain (minimal) Respiratory: Reports: Shortness of Breath, Cough. Denies: Wheezing, Pleuritic Chest Pain, Sputum, Hemoptysis Cardiovascular: Reports: No Symptoms Endocrine: Reports: No Symptoms GI/Abdominal: Reports: No Symptoms : Reports: No Symptoms Musculoskeletal: Reports: No Symptoms Skin: Reports: No Symptoms Neurological: Reports: No Symptoms ED EXAM, GENERAL - Physical Exam Exam: See Below Exam Limited By: No Limitations General Appearance: Alert, WD/WN, No Apparent Distress, Obese Eye Exam: Bilateral Eye: Normal Inspection Ears: Normal External Exam, Normal Canal, Hearing Grossly Normal Ear Exam: Bilateral Ear: Auricle Normal, Canal Normal Nose: Normal Inspection, No Blood Throat/Mouth: Normal Inspection, Normal Lips, Normal Voice, No Airway Compromise Head: Atraumatic, Normocephalic Neck: Normal Inspection Respiratory/Chest: No Respiratory Distress, No Accessory Muscle Use, Crackles. No: Lungs Clear, Wheezing Cardiovascular: Regular Rate, Rhythm, No Edema, Tachycardia GI/Abdominal: Normal Bowel Sounds, Soft, Non-Tender, No Distention Back Exam: Normal Inspection. No: CVA Tenderness (R), CVA Tenderness (L) Extremities: Normal Inspection, Normal Range of Motion, Non-Tender, No Pedal Edema Neurological: Alert, Oriented, CN II-XII Intact, Normal Cognition, No Motor/Sensory Deficits Psychiatric: Normal Affect, Normal Mood Skin Exam: Warm, Dry, Intact, Normal Color, No Rash Course - Vital Signs Last Recorded V/S: Last Vital Signs Temp 36.4 C 09/07/21 13:30 Pulse 109 H 09/07/21 13:30 Resp 18 09/07/21 13:30 BP 160/99 H 09/07/21 13:30 Pulse Ox 95 09/07/21 13:30 - Orders/Labs/Meds Orders: Active Orders 24 hr Category Date Time Status Chest 2V [CR] Stat Exams 09/07/21 08:25 Taken CULTURE BLOOD [BC] Stat Lab 09/07/21 09:05 Received CULTURE BLOOD [BC] Stat Lab 09/07/21 09:15 Received Medication Orders Acetaminophen (Acetaminophen 325 Mg Tab) 650 mg PO Q4H PRN PRN Reason: Pain (Mild 1-3)/fever Last Admin: 09/07/21 17:07 Dose: 650 mg Documented by: RACHEL Albuterol (Albuterol 0.083% 2.5 Mg/3 Ml Neb Soln) 2.5 mg NEB Q4H PRN PRN Reason: Shortness Of Breath/wheezing Alprazolam (Alprazolam 0.5 Mg Tab) 1 mg PO TID [facility] Dextrose (Glucose Gel 15 Gm In 37.5 Gm Tube) 15 gm PO ONETIME PRN PRN Reason: Hypoglycemia Dextrose/Water (50% Dextrose In Water 50 Ml Syringe) 50 ml IV ONETIME PRN PRN Reason: Hypoglycemia Enoxaparin Sodium (Enoxaparin 40 Mg/0.4 Ml Syringe) 40 mg SUBCUT Q24H [facility] Last Admin: 09/07/21 15:37 Dose: 40 mg Documented by: RACHEL Estradiol (Estradiol 0.5 Mg Tab) 1.5 mg PO DAILY@0800 [facility] Gabapentin (Gabapentin 300 Mg Cap) 600 mg PO TID [facility] Last Admin: 09/07/21 16:38 Dose: 600 mg Documented by: RACHEL Sodium Chloride (Normal Saline) 1,000 mls @ 125 mls/hr IV ASDIRECTED [facility] Last Admin: 09/07/21 14:38 Dose: 125 mls/hr Documented by: RACHEL Doxycycline Hyclate 100 mg/ (Sodium Chloride) 100 mls @ 100 mls/hr IV Q12H [facility] Ceftriaxone Sodium 1 gm/ (Sodium Chloride) 50 mls @ 100 mls/hr IV Q24H [facility] Ibuprofen (Ibuprofen 400 Mg Tab) 400 mg PO Q6H PRN PRN Reason: Pain Last Admin: 09/07/21 15:00 Dose: 400 mg Documented by: RACHEL Insulin Human Lispro (Insulin Lispro 100 Unit/Ml 3 Ml Kwikpen) 0 unit SUBCUT QIDACANDBED [facility]; Protocol Lisinopril (Lisinopril 2.5 Mg Tab) 2.5 mg PO BID [facility] Metformin HCl (Metformin 500 Mg Tab) 500 mg PO BIDMEALS [facility] Non-Formulary Medication (Dulaglutide [Trulicity]) 0.75 mg SQ WEEKLY [facility] Olanzapine (Olanzapine 5 Mg Tab) 15 mg PO BID@0800,1999 [facility] Ondansetron HCl (Ondansetron 4 Mg/2 Ml Sdv) 4 mg IV Q4H PRN PRN Reason: Nausea/Vomiting Pantoprazole Sodium (Pantoprazole 40 Mg Tab.Cr) 40 mg PO ACBREAKFAST [facility] Clozapine 200mg Tab ((Ptom)) 0 each PO BEDTIME@1999 [facility] Polyethylene Glycol (Polyethylene Glycol 3350 Powder 17 Gm Packet) 17 gm PO DAILY PRN PRN Reason: Constipation Polyethylene Glycol (Polyethylene Glycol 3350 Powder 17 Gm Packet) 17 gm PO DAILY [facility] Ropinirole HCl (Ropinirole 1 Mg Tab) 1 mg PO BEDTIME [facility] Sodium Chloride (Sodium Chloride 0.9% 10 Ml Syringe) 10 ml FLUSH ASDIRECTED PRN PRN Reason: Keep Vein Open Tizanidine HCl (Tizanidine 2 Mg Tab) 2 mg PO TID@0800,1400,2000 [facility] Last Admin: 09/07/21 16:38 Dose: 2 mg Documented by: RACHEL Labs: Laboratory Tests 09/07/21 09/07/21 09/07/21 Range/Units 07:27 07:30 07:30 WBC 16.5 H (4.5-11.0) K/uL RBC 4.34 (3.30-5.50) M/uL Hgb 14.1 (12.0-15.0) g/dL Hct 40.9 (36.0-48.0) % MCV 94 (80-98) fL MCH 33 H (27-31) pg MCHC 35 (32-36) % Plt Count 314 (150-400) K/uL Sodium 138 L (140-148) mmol/L Potassium 4.0 (3.6-5.2) mmol/L Chloride 101 (100-108) mmol/L Carbon Dioxide 26 (21-32) mmol/L Anion Gap 15.0 H (5.0-14.0) mmol/L BUN 8 (7-18) mg/dL Creatinine 0.6 (0.6-1.0) mg/dL Est Cr Clr Drug Dosing 108.79 mL/min Estimated GFR (MDRD) > 60 (>60) Glucose 122 H (74-106) mg/dL Calcium 8.8 (8.5-10.1) mg/dL Urine Color Yellow (YELLOW) Urine Appearance Clear (CLEAR) Urine pH 6.5 (5.0-8.0) Ur Specific Jordan 1.020 (1.008-1.030) Urine Protein Negative (NEGATIVE) mg/dL Urine Glucose (UA) Negative (NEGATIVE) mg/dL Urine Ketones Negative (NEGATIVE) mg/dL Urine Occult Blood Negative (NEGATIVE) Urine Nitrite Negative (NEGATIVE) Urine Bilirubin Negative (NEGATIVE) Urine Urobilinogen 0.2 (0.2-1.0) EU/dL Ur Leukocyte Esterase Negative (NEGATIVE) Urine RBC Not seen (0-5) Urine WBC Not seen (0-5) Ur Epithelial Cells Many Amorphous Sediment Not seen Urine Bacteria Few Urine Mucus Few SARS CoV-2 RNA Rapid [facility] 09/07/21 Range/Units 07:36 WBC (4.5-11.0) K/uL RBC (3.30-5.50) M/uL Hgb (12.0-15.0) g/dL Hct (36.0-48.0) % MCV (80-98) fL MCH (27-31) pg MCHC (32-36) % Plt Count (150-400) K/uL Sodium (140-148) mmol/L Potassium (3.6-5.2) mmol/L Chloride (100-108) mmol/L Carbon Dioxide (21-32) mmol/L Anion Gap (5.0-14.0) mmol/L BUN (7-18) mg/dL Creatinine (0.6-1.0) mg/dL Est Cr Clr Drug Dosing mL/min Estimated GFR (MDRD) (>60) Glucose (74-106) mg/dL Calcium (8.5-10.1) mg/dL Urine Color (YELLOW) Urine Appearance (CLEAR) Urine pH (5.0-8.0) Ur Specific Jordan (1.008-1.030) Urine Protein (NEGATIVE) mg/dL Urine Glucose (UA) (NEGATIVE) mg/dL Urine Ketones (NEGATIVE) mg/dL Urine Occult Blood (NEGATIVE) Urine Nitrite (NEGATIVE) Urine Bilirubin (NEGATIVE) Urine Urobilinogen (0.2-1.0) EU/dL Ur Leukocyte Esterase (NEGATIVE) Urine RBC (0-5) Urine WBC (0-5) Ur Epithelial Cells Amorphous Sediment Urine Bacteria Urine Mucus SARS CoV-2 RNA Rapid [facility] Negative Meds: Medications Generic Name Dose Route Start Last Admin Trade Name Freq PRN Reason Stop Dose Admin Acetaminophen 650 mg 09/07/21 13:30 09/07/21 17:07 Acetaminophen 325 Mg Tab PO 650 mg Q4H PRN Administration Pain (Mild 1-3)/fever Albuterol 2.5 mg 09/07/21 13:30 Albuterol 0.083% 2.5 Mg/3 Ml Neb Soln NEB Q4H PRN Shortness Of Breath/wheezing Alprazolam 1 mg 10/31/21 20:00 Alprazolam 0.5 Mg Tab PO TID [facility] Dextrose 15 gm 09/07/21 13:30 Glucose Gel 15 Gm In 37.5 Gm Tube PO ONETIME PRN Hypoglycemia Dextrose/Water 50 ml 09/07/21 13:30 50% Dextrose In Water 50 Ml Syringe IV ONETIME PRN Hypoglycemia Enoxaparin Sodium 40 mg 09/07/21 14:00 09/07/21 15:37 Enoxaparin 40 Mg/0.4 Ml Syringe SUBCUT 40 mg Q24H [facility] Administration Estradiol 1.5 mg 09/08/21 08:00 Estradiol 0.5 Mg Tab PO DAILY@0800 [facility] Gabapentin 600 mg 09/07/21 14:00 09/07/21 16:38 Gabapentin 300 Mg Cap PO 600 mg TID [facility] Administration Sodium Chloride 1,000 mls @ 125 mls/hr 09/07/21 13:30 09/07/21 14:38 Normal Saline IV 125 mls/hr ASDIRECTED [facility] Administration Doxycycline Hyclate 100 mg/ 100 mls @ 100 mls/hr 09/07/21 20:00 Sodium Chloride IV Q12H [facility] Ceftriaxone Sodium 1 gm/ 50 mls @ 100 mls/hr 09/08/21 09:00 Sodium Chloride IV Q24H [facility] Ibuprofen 400 mg 09/07/21 14:40 09/07/21 15:00 Ibuprofen 400 Mg Tab PO 400 mg Q6H PRN Administration Pain Insulin Human Lispro 0 unit 09/07/21 17:00 Insulin Lispro 100 Unit/Ml 3 Ml Kwikpen SUBCUT QIDACANDBED [facility] Protocol Lisinopril 2.5 mg 09/07/21 21:00 Lisinopril 2.5 Mg Tab PO BID [facility] Metformin HCl 500 mg 09/08/21 08:00 Metformin 500 Mg Tab PO BIDMEALS [facility] Non-Formulary Medication 0.75 mg 09/07/21 14:45 Dulaglutide [Trulicity] SQ WEEKLY [facility] Olanzapine 15 mg 09/07/21 20:00 Olanzapine 5 Mg Tab PO BID@0800,1999 [facility] Ondansetron HCl 4 mg 09/07/21 13:30 Ondansetron 4 Mg/2 Ml Sdv IV Q4H PRN Nausea/Vomiting Pantoprazole Sodium 40 mg 09/08/21 07:30 Pantoprazole 40 Mg Tab.Cr PO ACBREAKFAST [facility] Clozapine 200mg Tab 0 each 09/07/21 20:00 (Ptom) PO BEDTIME@1999 [facility] Polyethylene Glycol 17 gm 09/07/21 13:30 Polyethylene Glycol 3350 Powder 17 Gm Packet PO DAILY PRN Constipation Polyethylene Glycol 17 gm 09/08/21 09:00 Polyethylene Glycol 3350 Powder 17 Gm Packet PO DAILY [facility] Ropinirole HCl 1 mg 09/07/21 21:00 Ropinirole 1 Mg Tab PO BEDTIME [facility] Sodium Chloride 10 ml 09/07/21 13:30 Sodium Chloride 0.9% 10 Ml Syringe FLUSH ASDIRECTED PRN Keep Vein Open Tizanidine HCl 2 mg 09/07/21 14:00 09/07/21 16:38 Tizanidine 2 Mg Tab PO 2 mg TID@0800,1400,1999 [facility] Administration Discontinued Medications Generic Name Dose Route Start Last Admin Trade Name Freq PRN Reason Stop Dose Admin Acetaminophen 1,000 mg 09/07/21 09:18 09/07/21 09:24 Acetaminophen 500 Mg Tab PO 1,000 mg Q6H PRN Administration Pain Doxycycline Hyclate 100 mg 09/07/21 09:00 09/07/21 09:23 Doxycycline 100 Mg Cap PO 09/07/21 09:01 100 mg ONETIME ONE Administration Ceftriaxone Sodium 1 gm/ 50 mls @ 100 mls/hr 09/07/21 09:30 09/07/21 09:23 Sodium Chloride IV 09/07/21 09:59 100 mls/hr ONETIME ONE Administration Sodium Chloride 10 ml 09/07/21 07:27 09/07/21 07:58 Sodium Chloride 0.9% 10 Ml Syringe FLUSH 10 ml ASDIRECTED PRN Administration Keep Vein Open - Radiology Interpretation Free Text/Narrative:: CXR-Retrocardiac infiltrate Departure - Departure Time of Disposition: 13:00 Disposition: Admitted As Inpatient 64 Condition: Fair Clinical Impression: Pneumonia Qualifiers: Pneumonia type: due to unspecified organism Laterality: left Lung location: lower lobe of lung Qualified Code(s): J18.9 - Pneumonia, unspecified organism - Discharge Information *PRESCRIPTION DRUG MONITORING PROGRAM REVIEWED*: Not Applicable *COPY OF PRESCRIPTION DRUG MONITORING REPORT IN PATIENT ROSIE: Not Applicable Sepsis Event Note (ED) - Evaluation Sepsis Screening Result: No Definite Risk - Focused Exam Vital Signs: Vital Signs Temp Pulse Resp BP Pulse Ox Pulse Ox 10/31/21 09:45 108 H 18 140/78 91 L 09/07/21 07:27 91 L 09/07/21 07:23 36.6 C 109 H 12 153/92 H 91 L 09/07/21 07:14 36.6 C 109 H 12 153/92 H 91 L - My Orders Last 24 Hours: My Active Orders 09/07/21 08:25 Chest 2V [CR] Stat 09/07/21 09:05 CULTURE BLOOD [BC] Stat 09/07/21 09:15 CULTURE BLOOD [BC] Stat - Assessment/Plan Last 24 Hours: My Active Orders 09/07/21 08:25 Chest 2V [CR] Stat 09/07/21 09:05 CULTURE BLOOD [BC] Stat 09/07/21 09:15 CULTURE BLOOD [BC] Stat
[2021-09-07] MEDS ORDERED: cefTRIAXone 1 GM in Sodium Chloride 0.9% 50 ML IV ONE ×2 (08:59→09:30)
[2021-09-07] MEDS ORDERED: Doxycycline 100 MG Cap PO ONE (09:00)
[2021-09-07] MEDS ORDERED: Acetaminophen 500 MG Tab PO PRN (09:18)
--- NOTE | 2021-09-07 11:43 | PCM.HP.2 ---
H&P History of Present Illness - General Date of Service: 09/07/21 Admit Problem/Dx: Admission Diagnosis/Problem Admission Diagnosis/Problem Pneumonia Source of Information: Patient, Provider, RN Notes Reviewed History Limitations: Reports: No Limitations - History of Present Illness Initial Comments - Free Text/Narative: Ms. Shane is a 41-year-old woman who was admitted through the emergency department with cough, shortness of breath, and weakness secondary to left lung pneumonia. She was hospitalized here in July with pneumonia and had felt well until the day prior to admission. She is noted onset of chills, cough and weakness over the last 24 hours. She presented to the emergency department this morning and chest x-ray documents a left lung infiltrate. White blood cell count is elevated. There is mild hypoxia and other than mild elevation in heart rate no significant evidence of sepsis. Generalized Pain Score (Numeric/FACES): 8 - Related Data Allergies/Adverse Reactions: Allergies Allergy/AdvReac Type Severity Reaction Status Date / Time divalproex sodium Allergy Swelling Verified 09/07/21 07:19 [From Depakote] haloperidol Allergy Other Verified 09/07/21 07:19 pork derived (porcine) Allergy Other Verified 09/07/21 07:19 risperidone Allergy Other Verified 09/07/21 07:19 Sulfa (Sulfonamide Allergy Hives Verified 09/07/21 07:19 Antibiotics) Home Medications: Home Meds OLANZapine [Olanzapine] 15 mg PO BID 07/23/20 [History] Omeprazole 20 mg PO DAILY 07/23/20 [History] cloZAPine [Clozapine] 200 mg PO BEDTIME 07/23/20 [History] estradioL [Estradiol] 1.5 mg PO DAILY 07/23/20 [History] rOPINIRole [Requip] 1 mg PO BEDTIME 07/23/20 [History] tiZANidine 2 mg PO TID 07/23/20 [History] lisinopriL [Prinivil] 2.5 mg PO BID 11/25/20 [History] Dulaglutide [Trulicity] 0.75 mg SQ WEEKLY 07/15/21 [History] polyethylene glycoL 3350 [MiraLAX] 17 gm PO DAILY 07/15/21 [History] Ascorbic Acid [Vitamin C] 500 mg PO DAILY@0800 #30 tablet 07/19/21 [Rx] Cholecalciferol (Vitamin D3) [Vitamin D3] 25 mcg PO DAILY@0800 #30 tablet 07/19/21 [Rx] Multivit with Calcium,Iron,Min [One Daily Women's] 1 each PO DAILY #30 tablet 07/19/21 [Rx] *Quercetin 250 mg PO DAILY 09/07/21 [History] Gabapentin [Neurontin] 600 mg PO TID 09/07/21 [History] Zinc 50 mg PO DAILY 09/07/21 [History] metFORMIN [Glucophage XR] 1,000 mg PO DAILY 09/07/21 [History] Past Medical History HEENT History: Reports: Impaired Vision Cardiovascular History: Reports: High Cholesterol, Hypertension Respiratory History: Reports: Intubation, Previous, Pneumonia, Recurrent Other Respiratory History: hospitalized with [id number] Gastrointestinal History: Reports: GERD Genitourinary History: Reports: Urinary Incontinence Musculoskeletal History: Reports: Other (See Below) Other Musculoskeletal History: plantar fascitis. chronic left shoulder painchronic right knee pain Psychiatric History: Reports: Bipolar, Depression, Psychosis, Schizophrenia, Suicide Attempt, Other (See Below) Other Psychiatric History: catatonia. insomnia Endocrine/Metabolic History: Reports: Diabetes, Type II, Obesity/BMI 30+, Vitamin D Deficiency Hematologic History: Reports: Other (See Below) Other Hematologic History: vitamin D deficency Dermatologic History: Reports: Other (See Below) Other Dermatologic History: rash - Infectious Disease History Infectious Disease History: Reports: None, Chicken Pox - Past Surgical History Head Surgeries/Procedures: Reports: None HEENT Surgical History: Reports: Tonsillectomy Respiratory Surgical History: Reports: Other (See Below) Other Respiratory Surgeries/Procedures: bronchoscopy Female Surgical History: Reports: Hysterectomy Musculoskeletal Surgical History: Reports: Arthroscopic Knee Social & Family History - Tobacco Use Tobacco Use Status *Q: Never Tobacco User - Caffeine Use Caffeine Use: Reports: Coffee, Energy Drinks, Soda, Tea H&P Review of Systems - Review of Systems: Review Of Systems: See Below General: Reports: Chills, Malaise, Weakness, Fatigue. Denies: Fever HEENT: Reports: No Symptoms Pulmonary: Reports: Shortness of Breath, Cough. Denies: Wheezing, Pleuritic Ch est Pain, Sputum, Hemoptysis Cardiovascular: Reports: Dyspnea on Exertion. Denies: Chest Pain, Palpitations, Orthopnea, PND, Edema, Lightheadedness Gastrointestinal: Reports: No Symptoms Genitourinary: Reports: No Symptoms Musculoskeletal: Reports: No Symptoms Skin: Reports: No Symptoms Psychiatric: Reports: No Symptoms Neurological: Reports: No Symptoms Hematologic/Lymphatic: Reports: No Symptoms Immunologic: Reports: No Symptoms Exam - Exam Exam: See Below - Vital Signs Vital Signs: Last Vital Signs Temp 97.9 F 09/07/21 07:23 Pulse 109 H 09/07/21 07:23 Resp 12 09/07/21 07:23 BP 153/92 H 09/07/21 07:23 Pulse Ox 91 L 09/07/21 07:27 Weight: 260 lb - Exam Quality Assessment: Supplemental Oxygen, DVT Prophylaxis General: Alert, Oriented, Cooperative, Mild Distress HEENT: Conjunctiva Clear, Hearing Intact, Mucosa Moist & Venus, Normal Nasal Septum, Posterior Pharynx Clear, Pupils Equal Neck: Supple, Trachea Midline, +2 Carotid Pulse wo Bruit Lungs: Decreased Breath Sounds, Rales. No: Crackles, Rhonchi, Wheezing Cardiovascular: Regular Rate, Regular Rhythm, Normal S1, Normal S2. No: Systolic Murmur, Diastolic Murmur GI/Abdominal Exam: Soft, Non-Tender, No Organomegaly, No Distention Back Exam: Normal Inspection, Full Range of Motion Extremities: Non-Tender, No Pedal Edema Skin: Warm, Dry, Intact Neurological: Cranial Nerves Intact, Strength Equal Bilateral, Normal Speech, Normal Tone, Sensation Intact. No: Focal Deficit Neuro Extensive - Mental Status: Alert, Oriented x3, Normal Mood/Affect, Normal Cognition, Memory Intact - Patient Data Lab Results Last 24 hrs: Laboratory Results - last 24 hr 09/07/21 09/07/21 09/07/21 Range/Units 07:27 07:30 07:30 WBC 16.5 H (4.5-11.0) K/uL RBC 4.34 (3.30-5.50) M/uL Hgb 14.1 (12.0-15.0) g/dL Hct 40.9 (36.0-48.0) % MCV 94 (80-98) fL MCH 33 H (27-31) pg MCHC 35 (32-36) % Plt Count 314 (150-400) K/uL Sodium 138 L (140-148) mmol/L Potassium 4.0 (3.6-5.2) mmol/L Chloride 101 (100-108) mmol/L Carbon Dioxide 26 (21-32) mmol/L Anion Gap 15.0 H (5.0-14.0) mmol/L BUN 8 (7-18) mg/dL Creatinine 0.6 (0.6-1.0) mg/dL Est Cr Clr Drug Dosing 108.79 mL/min Estimated GFR (MDRD) > 60 (>60) Glucose 122 H (74-106) mg/dL Calcium 8.8 (8.5-10.1) mg/dL Urine Color Yellow (YELLOW) Urine Appearance Clear (CLEAR) Urine pH 6.5 (5.0-8.0) Ur Specific [place] 1.020 (1.008-1.030) Urine Protein Negative (NEGATIVE) mg/dL Urine Glucose (UA) Negative (NEGATIVE) mg/dL Urine Ketones Negative (NEGATIVE) mg/dL Urine Occult Blood Negative (NEGATIVE) Urine Nitrite Negative (NEGATIVE) Urine Bilirubin Negative (NEGATIVE) Urine Urobilinogen 0.2 (0.2-1.0) EU/dL Ur Leukocyte Esterase Negative (NEGATIVE) Urine RBC Not seen (0-5) Urine WBC Not seen (0-5) Ur Epithelial Cells Many Amorphous Sediment Not seen Urine Bacteria Few Urine Mucus Few SARS CoV-2 RNA Rapid BAILEY 09/07/21 Range/Units 07:36 WBC (4.5-11.0) K/uL RBC (3.30-5.50) M/uL Hgb (12.0-15.0) g/dL Hct (36.0-48.0) % MCV (80-98) fL MCH (27-31) pg MCHC (32-36) % Plt Count (150-400) K/uL Sodium (140-148) mmol/L Potassium (3.6-5.2) mmol/L Chloride (100-108) mmol/L Carbon Dioxide (21-32) mmol/L Anion Gap (5.0-14.0) mmol/L BUN (7-18) mg/dL Creatinine (0.6-1.0) mg/dL Est Cr Clr Drug Dosing mL/min Estimated GFR (MDRD) (>60) Glucose (74-106) mg/dL Calcium (8.5-10.1) mg/dL Urine Color (YELLOW) Urine Appearance (CLEAR) Urine pH (5.0-8.0) Ur Specific [place] (1.008-1.030) Urine Protein (NEGATIVE) mg/dL Urine Glucose (UA) (NEGATIVE) mg/dL Urine Ketones (NEGATIVE) mg/dL Urine Occult Blood (NEGATIVE) Urine Nitrite (NEGATIVE) Urine Bilirubin (NEGATIVE) Urine Urobilinogen (0.2-1.0) EU/dL Ur Leukocyte Esterase (NEGATIVE) Urine RBC (0-5) Urine WBC (0-5) Ur Epithelial Cells Amorphous Sediment Urine Bacteria Urine Mucus SARS CoV-2 RNA Rapid BAILEY Negative Result Diagrams: 09/07/21 07:30 09/07/21 07:30 Sepsis Event Note - Evaluation Sepsis Screening Result: No Definite Risk - Focused Exam Vital Signs: Vital Signs Temp Pulse Resp BP Pulse Ox Pulse Ox 09/07/21 07:27 91 L 09/07/21 07:23 97.9 F 109 H 12 153/92 H 91 L 09/07/21 07:14 97.9 F 109 H 12 153/92 H 91 L *Q Meaningful Use (ADM) - VTE Risk Assess *Q Each Risk Factor Represents 1 Point: Age 41 - 59 years, Obesity ( BMI > 25 kg/m2), Serious lung disease including pneumonia Total Score 1 Point Risk Factors: 3 Each Risk Factor Represents 2 Points: None Total Score 2 Point Risk Factors: 0 Each Risk Factor Represents 3 Points: None Total Score 3 Point Risk Factors: 0 Each Risk Factor Represents 5 Points: None Total Score 5 Point Risk Factors: 0 Venous Thromboembolism Risk Factor Score *Q: 3 Problem List Initiated/Reviewed/Updated: Yes Orders Last 24hrs: Active Orders 24 hr Category Date Time Status Patient Status Manage Transfer [TRANSFER] Routine ADT 09/07/21 11:37 Ordered Oxygen Therapy [RC] ASDIRECTED Care 09/07/21 07:27 Active Chest 2V [CR] Stat Exams 09/07/21 08:25 Taken CULTURE BLOOD [BC] Stat Lab 09/07/21 09:05 Received CULTURE BLOOD [BC] Stat Lab 09/07/21 09:15 Received Acetaminophen [Tylenol Extra Strength] Med 09/07/21 09:18 Active 1,000 mg PO Q6H PRN Sodium Chloride 0.9% [Saline Flush] Med 09/07/21 07:27 Active 10 ml FLUSH ASDIRECTED PRN Saline Lock Insert [OM.PC] Routine Oth 09/07/21 07:27 Ordered Resuscitation Status Routine Resus Stat 09/07/21 11:38 Ordered Medication Orders Acetaminophen (Acetaminophen 500 Mg Tab) 1,000 mg PO Q6H PRN PRN Reason: Pain Last Admin: 09/07/21 09:24 Dose: 1,000 mg Documented by: LAURA Sodium Chloride (Sodium Chloride 0.9% 10 Ml Syringe) 10 ml FLUSH ASDIRECTED PRN PRN Reason: Keep Vein Open Last Admin: 09/07/21 07:58 Dose: 10 ml Documented by: LAURA Assessment/Plan Comment:: ASSESSMENT AND PLAN LEFT LUNG PNEUMONIA-history of right lung pneumonia approximately 2 months ago. Symptomatic for the last 24 hours with shortness of breath, chills, and weakness. Found to be hypoxic on initial presentation to the emergency department, other than mild elevation in heart rate no evidence of underlying sepsis. -Blood cultures pending -IV fluids for hydration -IV ceftriaxone and doxycycline pending culture results ACUTE HYPOXIC RESPIRATORY FAILURE-secondary to current pneumonia -Supplemental oxygen as needed -Albuterol nebs as needed TYPE 2 DIABETES MELLITUS -Continue outpatient medications -4 times daily glucometers -Low-dose sliding scale Humalog SCHIZOPHRENIA -Continue outpatient medications MAINTENANCE ISSUES -DVT prophylaxis; Lovenox 40 mg subcu daily -GI prophylaxis; not indicated -Welch catheter; not indicated -Nutrition; consistent carbohydrate diet -Nicotine dependence; not required CODE STATUS-FULL CODE ADMISSION STATUS-patient will be admitted to inpatient status, expect at least a 2 night hospital stay for evaluation and management of problems as outlined above. At the time of this admission I do not reasonably expected evaluation and management of this problem will require more than a 96 hour hospital stay. DISPOSITION-anticipate discharge to home after the hospital stay. PRIMARY CARE PROVIDER-Dr. Loza - Mortality Measure Prognosis:: Good
[2021-09-07] MEDS ORDERED: Albuterol 0.083% 2.5 MG/3 ML Neb Soln NEB PRN (13:30)
[2021-09-07] MEDS ORDERED: 50% Dextrose in Water 50 ML Syringe IV PRN (13:30)
[2021-09-07] MEDS ORDERED: Ondansetron 4 MG/2 ML SDV IV PRN (13:30)
[2021-09-07] MEDS ORDERED: Polyethylene Glycol 3350 Powder 17 GM Packet PO PRN (13:30)
[2021-09-07] MEDS ORDERED: Glucose Gel 15 GM in 37.5 GM Tube PO PRN (13:30)
[2021-09-07] MEDS: Sodium Chloride 0.9% 1,000 ML IV SCH (14:38)
[2021-09-07] MEDS: Ibuprofen 400 MG Tab PO PRN ×2 (15:00→19:55)
[2021-09-07] MEDS: Enoxaparin 40 MG/0.4 ML Syringe SUBCUT SCH (15:37)
[2021-09-07] MEDS: Gabapentin 300 MG Cap PO SCH ×2 (16:38→20:15)
[2021-09-07] MEDS: tiZANidine 2 MG Tab PO SCH ×2 (16:38→20:11)
[2021-09-07] MEDS: Acetaminophen 325 MG Tab PO PRN ×2 (17:07→21:41)
[2021-09-07] MEDS: Insulin Lispro 100 Unit/ML 3 ML KwikPen SUBCUT SCH ×2 (18:56→21:39)
[2021-09-07] MEDS: ALPRAZolam 0.5 MG Tab PO SCH ×2 (19:55→20:18)
[2021-09-07] MEDS: CLOZAPINE 200 MG PO SCH (19:55)
[2021-09-07] MEDS ORDERED: tiZANidine 2 MG Tab PO SCH (20:00)
[2021-09-07] MEDS: OLANZapine 5 MG Tab PO SCH (20:11)
[2021-09-07] MEDS: Doxycycline 100 MG in Sodium Chloride 0.9% 100 ML IV SCH (20:13)
[2021-09-07] MEDS: rOPINIRole 1 MG Tab PO SCH (20:18)
[2021-09-07] MEDS: Lisinopril 2.5 MG Tab PO SCH (20:18)
[2021-09-07] MEDS ORDERED: Non-Formulary Medication 1 Each (Olanzapine [Olanzapine] 15 MG Tablet) PO SCH (21:00)
[2021-09-07] MEDS ORDERED: Non-Formulary Medication 1 Each (Gabapentin [Neurontin] 600 MG Tablet) PO SCH (21:00)
[2021-09-07] MEDS ORDERED: TIZANIDINE 2 MG PO SCH (21:00)
[2021-09-07] MEDS ORDERED: CLOZAPINE 200 MG PO SCH (21:00)
[2021-09-08] MEDS: Ibuprofen 400 MG Tab PO PRN ×2 (03:32→08:50)
[2021-09-08] MEDS: Sodium Chloride 0.9% 1,000 ML IV SCH (04:03)
[2021-09-08] MEDS ORDERED: Morphine 2 MG/ML SYRINGE IVPUSH STA (04:09)
[2021-09-08] MEDS ORDERED: Meropenem 1 GM in Sodium Chloride 0.9% 100 ML IV ONE (04:10)
[2021-09-08] MEDS ORDERED: Acetaminophen 1,000 MG in Premix Bag 1 BAG IV ONE (04:11)
--- NOTE | 2021-09-08 04:24 | PCM.SN.2 ---
- Free Text/Narrative Note: time: 414 called by 2 [facility] to evaluate Ms. Shane for respiratory distress S: states no concerns, "Thank you for coming." O: vital signs 98.9-120's-18 B/P 159/94 O2 sat 85% on 10 liter simple mask, pale, tremulous, clammy chest- heart tachy lungs-decreased breath sounds, non-labored breathing abdomen soft A: respiratory distress P: imaging-chest x-ray one view Labs- CBC, BMP, PROCALCITONIN, LACTIC ACID, ABGS Medications- IV Tylenol 1000 mg., IV Morphine 2 mg, IV Meropenem 1 gram now, IV Solumedrol 125 mg Time Documentation
[2021-09-08] MEDS ORDERED: methylPREDNISolone Sodium Succinate 125 MG/2 ML SDV IVPUSH ONE ×2 (04:32→11:02)
[2021-09-08] MEDS: Doxycycline 100 MG in Sodium Chloride 0.9% 100 ML IV SCH ×2 (07:28→19:26)
[2021-09-08] MEDS: OLANZapine 5 MG Tab PO SCH ×2 (07:29→19:24)
[2021-09-08] MEDS: metFORMIN 500 MG Tab PO SCH ×2 (07:29→17:34)
[2021-09-08] MEDS: Pantoprazole 40 MG Tab.CR PO SCH (07:29)
[2021-09-08] MEDS: Estradiol 0.5 MG Tab PO SCH (07:29)
[2021-09-08] MEDS: tiZANidine 2 MG Tab PO SCH ×3 (07:29→19:26)
[2021-09-08] MEDS: Insulin Lispro 100 Unit/ML 3 ML KwikPen SUBCUT SCH ×4 (08:46→21:43)
[2021-09-08] MEDS: Gabapentin 300 MG Cap PO SCH ×3 (08:46→21:44)
[2021-09-08] MEDS: Polyethylene Glycol 3350 Powder 17 GM Packet PO SCH (08:46)
[2021-09-08] MEDS: Lisinopril 2.5 MG Tab PO SCH ×2 (08:47→21:45)
[2021-09-08] MEDS: cefTRIAXone 1 GM in Sodium Chloride 0.9% 50 ML IV SCH (08:47)
[2021-09-08] MEDS: ALPRAZolam 0.5 MG Tab PO SCH ×3 (08:50→21:45)
[2021-09-08] MEDS ORDERED: Non-Formulary Medication 1 Each (Omeprazole [Omeprazole] 20 MG Capsule.Dr) PO SCH (09:00)
[2021-09-08] MEDS ORDERED: Estradiol 0.5 MG Tab PO SCH (09:00)
[2021-09-08] MEDS ORDERED: Non-Formulary Medication 1 Each (Metformin [Glucophage Xr] 500 MG Tab.Er) PO SCH (09:00)
--- NOTE | 2021-09-08 09:32 | CR ---
CHEST: 2 view CLINICAL HISTORY:SOB, cough COMPARISON:07/15/2021 FINDINGS: There is patchy infiltrate in the left lower lobe heart size and pulmonary vascularity are normal Impression: Left lower lobe pneumonic infiltrate persists.
--- NOTE | 2021-09-08 10:12 | CR ---
CHEST: Portable 09/08/2021 at 4:49 AM CLINICAL HISTORY:Hypoxia COMPARISON:09/07/2021 FINDINGS: Limited study due to poor inspiratory level and patient's large body habitus. There is patchy airspace disease in both lower lobes is felt to represent a combination of some subsegmental atelectasis and infiltrate. There appears to be a small left effusion. IMPRESSION: Limited study Bilateral lower lobe infiltrates and atelectasis Small left effusion
[2021-09-08] MEDS ORDERED: Potassium Chloride 20 MEQ Tab.ER PO ONE (10:50)
[2021-09-08] MEDS ORDERED: Morphine 2 MG/ML SYRINGE IVPUSH ONE (11:02)
[2021-09-08] MEDS ORDERED: Furosemide 20 MG/2 ML VIAL IVPUSH ONE (11:02)
[2021-09-08] MEDS ORDERED: Ibuprofen 400 MG Tab PO PRN (11:05)
--- NOTE | 2021-09-08 11:06 | PCM.PN ---
- General Info Date of Service: 09/08/21 Subjective Update: Overnight the patient had difficulty with increasing respiratory difficulty. She required 15 L of supplemental oxygen for a while. She was down to 6 L this morning. She is feeling less short of breath. Cough is minimal. She reports feeling that her "lungs are on fire". She reports pleuritic type chest pain with any respiration. No abdominal pain or nausea. She feels weak. Potassium was a little low this morning. - Patient Data Vitals - Most Recent: Last Vital Signs Temp 37.2 C 09/08/21 04:12 Pulse 118 H 09/08/21 06:14 Resp 16 09/08/21 06:14 BP 130/77 09/08/21 08:47 Pulse Ox 92 L 09/08/21 08:41 Weight - Most Recent: 120.928 kg I&O - Last 24 Hours: Intake & Output 09/07/21 09/08/21 09/08/21 22:59 06:59 14:59 Intake Total 700 2575 Output Total 1000 Balance 700 1575 Lab Results Last 24 Hours: Laboratory Results - last 24 hr 09/07/21 09/07/21 09/08/21 Range/Units 16:24 20:45 04:16 WBC (4.5-11.0) K/uL RBC (3.30-5.50) M/uL Hgb (12.0-15.0) g/dL Hct (36.0-48.0) % MCV (80-98) fL MCH (27-31) pg MCHC (32-36) % Plt Count (150-400) K/uL Neut % (Auto) (36-66) % Lymph % (Auto) (24-44) % Mcnairy % (Auto) (2-6) % Eos % (Auto) (2-4) % Baso % (Auto) (0-1) % D-Dimer, Quantitative (0.0-500.0) ng/mL Puncture Site ABG pH (7.350-7.450) ABG pCO2 (35.0-42.0) mmHg ABG pO2 (75.0-100.0) mmHg ABG HCO3 (22.0-26.0) mmol/L ABG Total CO2 (21.0-25.0) mmol/L ABG O2 Saturation (95.0-98.0) % ABG O2 Content (15.0-23.0) %vol ABG Base Excess mm/L ABG Hemoglobin (12.0-16.0) g/dL ABG Oxyhemoglobin % ABG Carboxyhemoglobin (0.0-1.6) % ABG Methemoglobin % Ramy Test O2 Delivery Device Oxygen Flow Rate L Sodium (140-148) mmol/L Potassium (3.6-5.2) mmol/L Chloride (100-108) mmol/L Carbon Dioxide (21-32) mmol/L Anion Gap (5.0-14.0) mmol/L BUN (7-18) mg/dL Creatinine (0.6-1.0) mg/dL Est Cr Clr Drug Dosing mL/min Estimated GFR (MDRD) (>60) Glucose (74-106) mg/dL POC Glucose 111 H 160 H 150 H (74-106) mg/dL Lactic Acid (0.4-2.0) mmol/L Calcium (8.5-10.1) mg/dL Procalcitonin ng/mL SARS CoV-2 RNA Rapid BAILEY 09/08/21 09/08/21 09/08/21 Range/Units 04:30 04:30 04:30 WBC 17.5 H (4.5-11.0) K/uL RBC 4.44 (3.30-5.50) M/uL Hgb 14.4 (12.0-15.0) g/dL Hct 43.3 (36.0-48.0) % MCV 98 (80-98) fL MCH 32 H (27-31) pg MCHC 33 (32-36) % Plt Count 307 (150-400) K/uL Neut % (Auto) 88.0 H (36-66) % Lymph % (Auto) 9.0 L (24-44) % Mcnairy % (Auto) 3.0 (2-6) % Eos % (Auto) 0.0 L (2-4) % Baso % (Auto) 0.0 (0-1) % D-Dimer, Quantitative (0.0-500.0) ng/mL Puncture Site ABG pH (7.350-7.450) ABG pCO2 (35.0-42.0) mmHg ABG pO2 (75.0-100.0) mmHg ABG HCO3 (22.0-26.0) mmol/L ABG Total CO2 (21.0-25.0) mmol/L ABG O2 Saturation (95.0-98.0) % ABG O2 Content (15.0-23.0) %vol ABG Base Excess mm/L ABG Hemoglobin (12.0-16.0) g/dL ABG Oxyhemoglobin % ABG Carboxyhemoglobin (0.0-1.6) % ABG Methemoglobin % Ramy Test O2 Delivery Device Oxygen Flow Rate L Sodium 139 L (140-148) mmol/L Potassium 3.5 L (3.6-5.2) mmol/L Chloride 103 (100-108) mmol/L Carbon Dioxide 22 (21-32) mmol/L Anion Gap 17.5 H (5.0-14.0) mmol/L BUN 9 (7-18) mg/dL Creatinine 0.6 (0.6-1.0) mg/dL Est Cr Clr Drug Dosing 108.79 mL/min Estimated GFR (MDRD) > 60 (>60) Glucose 202 H (74-106) mg/dL POC Glucose (74-106) mg/dL Lactic Acid 1.9 (0.4-2.0) mmol/L Calcium 8.6 (8.5-10.1) mg/dL Procalcitonin ng/mL SARS CoV-2 RNA Rapid BAILEY 09/08/21 09/08/21 09/08/21 Range/Units 04:30 04:30 04:45 WBC (4.5-11.0) K/uL RBC (3.30-5.50) M/uL Hgb (12.0-15.0) g/dL Hct (36.0-48.0) % MCV (80-98) fL MCH (27-31) pg MCHC (32-36) % Plt Count (150-400) K/uL Neut % (Auto) (36-66) % Lymph % (Auto) (24-44) % Mcnairy % (Auto) (2-6) % Eos % (Auto) (2-4) % Baso % (Auto) (0-1) % D-Dimer, Quantitative (0.0-500.0) ng/mL Puncture Site R radial ABG pH 7.342 L (7.350-7.450) ABG pCO2 41.7 (35.0-42.0) mmHg ABG pO2 56.7 L (75.0-100.0) mmHg ABG HCO3 22.0 (22.0-26.0) mmol/L ABG Total CO2 19.9 L (21.0-25.0) mmol/L ABG O2 Saturation 87.1 L (95.0-98.0) % ABG O2 Content 16.3 (15.0-23.0) %vol ABG Base Excess -3.0 mm/L ABG Hemoglobin 13.5 (12.0-16.0) g/dL ABG Oxyhemoglobin 87.5 % ABG Carboxyhemoglobin 1.4 (0.0-1.6) % ABG Methemoglobin -1.9 % Ramy Test Ok O2 Delivery Device Simple mask Oxygen Flow Rate 10.0 L Sodium (140-148) mmol/L Potassium (3.6-5.2) mmol/L Chloride (100-108) mmol/L Carbon Dioxide (21-32) mmol/L Anion Gap (5.0-14.0) mmol/L BUN (7-18) mg/dL Creatinine (0.6-1.0) mg/dL Est Cr Clr Drug Dosing mL/min Estimated GFR (MDRD) (>60) Glucose (74-106) mg/dL POC Glucose (74-106) mg/dL Lactic Acid (0.4-2.0) mmol/L Calcium (8.5-10.1) mg/dL Procalcitonin < 0.05 ng/mL SARS CoV-2 RNA Rapid BAILEY Negative 09/08/21 09/08/21 Range/Units 05:38 07:29 WBC (4.5-11.0) K/uL RBC (3.30-5.50) M/uL Hgb (12.0-15.0) g/dL Hct (36.0-48.0) % MCV (80-98) fL MCH (27-31) pg MCHC (32-36) % Plt Count (150-400) K/uL Neut % (Auto) (36-66) % Lymph % (Auto) (24-44) % Mcnairy % (Auto) (2-6) % Eos % (Auto) (2-4) % Baso % (Auto) (0-1) % D-Dimer, Quantitative 475.81 (0.0-500.0) ng/mL Puncture Site ABG pH (7.350-7.450) ABG pCO2 (35.0-42.0) mmHg ABG pO2 (75.0-100.0) mmHg ABG HCO3 (22.0-26.0) mmol/L ABG Total CO2 (21.0-25.0) mmol/L ABG O2 Saturation (95.0-98.0) % ABG O2 Content (15.0-23.0) %vol ABG Base Excess mm/L ABG Hemoglobin (12.0-16.0) g/dL ABG Oxyhemoglobin % ABG Carboxyhemoglobin (0.0-1.6) % ABG Methemoglobin % Ramy Test O2 Delivery Device Oxygen Flow Rate L Sodium (140-148) mmol/L Potassium (3.6-5.2) mmol/L Chloride (100-108) mmol/L Carbon Dioxide (21-32) mmol/L Anion Gap (5.0-14.0) mmol/L BUN (7-18) mg/dL Creatinine (0.6-1.0) mg/dL Est Cr Clr Drug Dosing mL/min Estimated GFR (MDRD) (>60) Glucose (74-106) mg/dL POC Glucose 169 H (74-106) mg/dL Lactic Acid (0.4-2.0) mmol/L Calcium (8.5-10.1) mg/dL Procalcitonin ng/mL SARS CoV-2 RNA Rapid BAILEY Diego Results Last 24 Hours: Microbiology 09/07/21 09:15 Aerobic Blood Culture - Preliminary Blood - Arm, Left NO GROWTH AFTER 1 DAY Anaerobic Blood Culture - Preliminary NO GROWTH AFTER 1 DAY 09/07/21 09:05 Aerobic Blood Culture - Preliminary Blood - Arm, Right NO GROWTH AFTER 1 DAY Anaerobic Blood Culture - Preliminary NO GROWTH AFTER 1 DAY Med Orders - Current: Current Medications Acetaminophen (Acetaminophen 325 Mg Tab) 650 mg PO Q4H PRN PRN Reason: Pain (Mild 1-3)/fever Last Admin: 09/07/21 21:41 Dose: 650 mg Documented by: Albuterol (Albuterol 0.083% 2.5 Mg/3 Ml Neb Soln) 2.5 mg NEB Q4H PRN PRN Reason: Shortness Of Breath/wheezing Last Admin: 09/08/21 03:52 Dose: 2.5 mg Documented by: Alprazolam (Alprazolam 0.5 Mg Tab) 1 mg PO TID [facility] Last Admin: 09/08/21 08:50 Dose: 1 mg Documented by: Dextrose (Glucose Gel 15 Gm In 37.5 Gm Tube) 15 gm PO ONETIME PRN PRN Reason: Hypoglycemia Dextrose/Water (50% Dextrose In Water 50 Ml Syringe) 50 ml IV ONETIME PRN PRN Reason: Hypoglycemia Enoxaparin Sodium (Enoxaparin 40 Mg/0.4 Ml Syringe) 40 mg SUBCUT Q24H [facility] Last Admin: 09/07/21 15:37 Dose: 40 mg Documented by: Estradiol (Estradiol 0.5 Mg Tab) 1.5 mg PO DAILY@0800 [facility] Last Admin: 09/08/21 07:29 Dose: 1.5 mg Documented by: Gabapentin (Gabapentin 300 Mg Cap) 600 mg PO TID [facility] Last Admin: 09/08/21 08:46 Dose: 600 mg Documented by: Doxycycline Hyclate 100 mg/ (Sodium Chloride) 100 mls @ 100 mls/hr IV Q12H [facility] Last Admin: 09/08/21 07:28 Dose: 100 mls/hr Documented by: Ceftriaxone Sodium 1 gm/ (Sodium Chloride) 50 mls @ 100 mls/hr IV Q24H [facility] Last Admin: 09/08/21 08:47 Dose: 100 mls/hr Documented by: Insulin Human Lispro (Insulin Lispro 100 Unit/Ml 3 Ml Kwikpen) 0 unit SUBCUT QIDACANDBED [facility]; Protocol Last Admin: 09/08/21 08:46 Dose: 1 unit Documented by: Lisinopril (Lisinopril 2.5 Mg Tab) 2.5 mg PO BID [facility] Last Admin: 09/08/21 08:47 Dose: 2.5 mg Documented by: Metformin HCl (Metformin 500 Mg Tab) 500 mg PO BIDMEALS [facility] Last Admin: 09/08/21 07:29 Dose: 500 mg Documented by: Non-Formulary Medication (Dulaglutide [Trulicity]) 0.75 mg SQ WEEKLY [facility] Olanzapine (Olanzapine 5 Mg Tab) 15 mg PO BID@0800,1999 [facility] Last Admin: 09/08/21 07:29 Dose: 15 mg Documented by: Ondansetron HCl (Ondansetron 4 Mg/2 Ml Sdv) 4 mg IV Q4H PRN PRN Reason: Nausea/Vomiting Last Admin: 09/08/21 03:57 Dose: 4 mg Documented by: Pantoprazole Sodium (Pantoprazole 40 Mg Tab.Cr) 40 mg PO ACBREAKFAST [facility] Last Admin: 09/08/21 07:29 Dose: 40 mg Documented by: Clozapine 200mg Tab ((Ptom)) 0 each PO BEDTIME@1999 [facility] Last Admin: 09/07/21 19:55 Dose: 1 each Documented by: Polyethylene Glycol (Polyethylene Glycol 3350 Powder 17 Gm Packet) 17 gm PO DAILY PRN PRN Reason: Constipation Polyethylene Glycol (Polyethylene Glycol 3350 Powder 17 Gm Packet) 17 gm PO DAILY [facility] Last Admin: 09/08/21 08:46 Dose: 17 gm Documented by: Ropinirole HCl (Ropinirole 1 Mg Tab) 1 mg PO BEDTIME [facility] Last Admin: 09/07/21 20:18 Dose: 1 mg Documented by: Sodium Chloride (Sodium Chloride 0.9% 10 Ml Syringe) 10 ml FLUSH ASDIRECTED PRN PRN Reason: Keep Vein Open Tizanidine HCl (Tizanidine 2 Mg Tab) 2 mg PO TID@0800,1400,1999 [facility] Last Admin: 09/08/21 07:29 Dose: 2 mg Documented by: Discontinued Medications Acetaminophen (Acetaminophen 500 Mg Tab) 1,000 mg PO Q6H PRN PRN Reason: Pain Last Admin: 09/07/21 09:24 Dose: 1,000 mg Documented by: Doxycycline Hyclate (Doxycycline 100 Mg Cap) 100 mg PO ONETIME ONE Stop: 09/07/21 09:01 Last Admin: 09/07/21 09:23 Dose: 100 mg Documented by: Ceftriaxone Sodium 1 gm/ (Sodium Chloride) 50 mls @ 100 mls/hr IV ONETIME ONE Stop: 09/07/21 09:59 Last Admin: 09/07/21 09:23 Dose: 100 mls/hr Documented by: Sodium Chloride (Normal Saline) 1,000 mls @ 125 mls/hr IV ASDIRECTED [facility] Last Admin: 09/08/21 04:03 Dose: 125 mls/hr Documented by: Meropenem 1 gm/ Sodium (Chloride) 100 mls @ 200 mls/hr IV ONETIME ONE Stop: 09/08/21 04:39 Last Admin: 09/08/21 04:34 Dose: 200 mls/hr Documented by: Acetaminophen 1,000 mg/ Premix 100 mls @ 400 mls/hr IV NOW ONE Stop: 09/08/21 04:25 Last Admin: 09/08/21 04:19 Dose: 400 mls/hr Documented by: Ibuprofen (Ibuprofen 400 Mg Tab) 400 mg PO Q6H PRN PRN Reason: Pain Last Admin: 09/08/21 08:50 Dose: 400 mg Documented by: Methylprednisolone Sodium Succinate (Methylprednisolone Sodium Succinate 125 Mg/2 Ml Sdv) 125 mg IVPUSH ONETIME ONE Stop: 09/08/21 04:33 Last Admin: 09/08/21 04:38 Dose: 125 mg Documented by: Morphine Sulfate (Morphine 2 Mg/Ml Syringe) 2 mg IVPUSH STAT STA Stop: 09/08/21 04:10 Last Admin: 09/08/21 04:29 Dose: 2 mg Documented by: Potassium Chloride (Potassium Chloride 20 Meq Tab.Er) 40 meq PO ONETIME ONE Stop: 09/08/21 10:51 Sodium Chloride (Sodium Chloride 0.9% 10 Ml Syringe) 10 ml FLUSH ASDIRECTED PRN PRN Reason: Keep Vein Open Last Admin: 09/07/21 07:58 Dose: 10 ml Documented by: - Exam Quality Assessment: Supplemental Oxygen General: Alert, Oriented, Cooperative, No Acute Distress Neck: JVD Lungs: Normal Respiratory Effort, Decreased Breath Sounds (Mild diffuse). No: Wheezing Cardiovascular: Regular Rate, Regular Rhythm GI/Abdominal Exam: Soft, No Distention Extremities: No Pedal Edema. No: Increased Warmth Skin: Warm, Dry Psy/Mental Status: Alert, Normal Affect - Patient Data Lab Results Last 24 hrs: Laboratory Results - last 24 hr 09/07/21 09/07/21 09/08/21 Range/Units 16:24 20:45 04:16 WBC (4.5-11.0) K/uL RBC (3.30-5.50) M/uL Hgb (12.0-15.0) g/dL Hct (36.0-48.0) % MCV (80-98) fL MCH (27-31) pg MCHC (32-36) % Plt Count (150-400) K/uL Neut % (Auto) (36-66) % Lymph % (Auto) (24-44) % Mcnairy % (Auto) (2-6) % Eos % (Auto) (2-4) % Baso % (Auto) (0-1) % D-Dimer, Quantitative (0.0-500.0) ng/mL Puncture Site ABG pH (7.350-7.450) ABG pCO2 (35.0-42.0) mmHg ABG pO2 (75.0-100.0) mmHg ABG HCO3 (22.0-26.0) mmol/L ABG Total CO2 (21.0-25.0) mmol/L ABG O2 Saturation (95.0-98.0) % ABG O2 Content (15.0-23.0) %vol ABG Base Excess mm/L ABG Hemoglobin (12.0-16.0) g/dL ABG Oxyhemoglobin % ABG Carboxyhemoglobin (0.0-1.6) % ABG Methemoglobin % Ramy Test O2 Delivery Device Oxygen Flow Rate L Sodium (140-148) mmol/L Potassium (3.6-5.2) mmol/L Chloride (100-108) mmol/L Carbon Dioxide (21-32) mmol/L Anion Gap (5.0-14.0) mmol/L BUN (7-18) mg/dL Creatinine (0.6-1.0) mg/dL Est Cr Clr Drug Dosing mL/min Estimated GFR (MDRD) (>60) Glucose (74-106) mg/dL POC Glucose 111 H 160 H 150 H (74-106) mg/dL Lactic Acid (0.4-2.0) mmol/L Calcium (8.5-10.1) mg/dL Procalcitonin ng/mL SARS CoV-2 RNA Rapid BAILEY 09/08/21 09/08/21 09/08/21 Range/Units 04:30 04:30 04:30 WBC 17.5 H (4.5-11.0) K/uL RBC 4.44 (3.30-5.50) M/uL Hgb 14.4 (12.0-15.0) g/dL Hct 43.3 (36.0-48.0) % MCV 98 (80-98) fL MCH 32 H (27-31) pg MCHC 33 (32-36) % Plt Count 307 (150-400) K/uL Neut % (Auto) 88.0 H (36-66) % Lymph % (Auto) 9.0 L (24-44) % Mcnairy % (Auto) 3.0 (2-6) % Eos % (Auto) 0.0 L (2-4) % Baso % (Auto) 0.0 (0-1) % D-Dimer, Quantitative (0.0-500.0) ng/mL Puncture Site ABG pH (7.350-7.450) ABG pCO2 (35.0-42.0) mmHg ABG pO2 (75.0-100.0) mmHg ABG HCO3 (22.0-26.0) mmol/L ABG Total CO2 (21.0-25.0) mmol/L ABG O2 Saturation (95.0-98.0) % ABG O2 Content (15.0-23.0) %vol ABG Base Excess mm/L ABG Hemoglobin (12.0-16.0) g/dL ABG Oxyhemoglobin % ABG Carboxyhemoglobin (0.0-1.6) % ABG Methemoglobin % Ramy Test O2 Delivery Device Oxygen Flow Rate L Sodium 139 L (140-148) mmol/L Potassium 3.5 L (3.6-5.2) mmol/L Chloride 103 (100-108) mmol/L Carbon Dioxide 22 (21-32) mmol/L Anion Gap 17.5 H (5.0-14.0) mmol/L BUN 9 (7-18) mg/dL Creatinine 0.6 (0.6-1.0) mg/dL Est Cr Clr Drug Dosing 108.79 mL/min Estimated GFR (MDRD) > 60 (>60) Glucose 202 H (74-106) mg/dL POC Glucose (74-106) mg/dL Lactic Acid 1.9 (0.4-2.0) mmol/L Calcium 8.6 (8.5-10.1) mg/dL Procalcitonin ng/mL SARS CoV-2 RNA Rapid BAILEY 09/08/21 09/08/21 09/08/21 Range/Units 04:30 04:30 04:45 WBC (4.5-11.0) K/uL RBC (3.30-5.50) M/uL Hgb (12.0-15.0) g/dL Hct (36.0-48.0) % MCV (80-98) fL MCH (27-31) pg MCHC (32-36) % Plt Count (150-400) K/uL Neut % (Auto) (36-66) % Lymph % (Auto) (24-44) % Mcnairy % (Auto) (2-6) % Eos % (Auto) (2-4) % Baso % (Auto) (0-1) % D-Dimer, Quantitative (0.0-500.0) ng/mL Puncture Site R radial ABG pH 7.342 L (7.350-7.450) ABG pCO2 41.7 (35.0-42.0) mmHg ABG pO2 56.7 L (75.0-100.0) mmHg ABG HCO3 22.0 (22.0-26.0) mmol/L ABG Total CO2 19.9 L (21.0-25.0) mmol/L ABG O2 Saturation 87.1 L (95.0-98.0) % ABG O2 Content 16.3 (15.0-23.0) %vol ABG Base Excess -3.0 mm/L ABG Hemoglobin 13.5 (12.0-16.0) g/dL ABG Oxyhemoglobin 87.5 % ABG Carboxyhemoglobin 1.4 (0.0-1.6) % ABG Methemoglobin -1.9 % Ramy Test Ok O2 Delivery Device Simple mask Oxygen Flow Rate 10.0 L Sodium (140-148) mmol/L Potassium (3.6-5.2) mmol/L Chloride (100-108) mmol/L Carbon Dioxide (21-32) mmol/L Anion Gap (5.0-14.0) mmol/L BUN (7-18) mg/dL Creatinine (0.6-1.0) mg/dL Est Cr Clr Drug Dosing mL/min Estimated GFR (MDRD) (>60) Glucose (74-106) mg/dL POC Glucose (74-106) mg/dL Lactic Acid (0.4-2.0) mmol/L Calcium (8.5-10.1) mg/dL Procalcitonin < 0.05 ng/mL SARS CoV-2 RNA Rapid BAILEY Negative 09/08/21 09/08/21 Range/Units 05:38 07:29 WBC (4.5-11.0) K/uL RBC (3.30-5.50) M/uL Hgb (12.0-15.0) g/dL Hct (36.0-48.0) % MCV (80-98) fL MCH (27-31) pg MCHC (32-36) % Plt Count (150-400) K/uL Neut % (Auto) (36-66) % Lymph % (Auto) (24-44) % Mcnairy % (Auto) (2-6) % Eos % (Auto) (2-4) % Baso % (Auto) (0-1) % D-Dimer, Quantitative 475.81 (0.0-500.0) ng/mL Puncture Site ABG pH (7.350-7.450) ABG pCO2 (35.0-42.0) mmHg ABG pO2 (75.0-100.0) mmHg ABG HCO3 (22.0-26.0) mmol/L ABG Total CO2 (21.0-25.0) mmol/L ABG O2 Saturation (95.0-98.0) % ABG O2 Content (15.0-23.0) %vol ABG Base Excess mm/L ABG Hemoglobin (12.0-16.0) g/dL ABG Oxyhemoglobin % ABG Carboxyhemoglobin (0.0-1.6) % ABG Methemoglobin % Ramy Test O2 Delivery Device Oxygen Flow Rate L Sodium (140-148) mmol/L Potassium (3.6-5.2) mmol/L Chloride (100-108) mmol/L Carbon Dioxide (21-32) mmol/L Anion Gap (5.0-14.0) mmol/L BUN (7-18) mg/dL Creatinine (0.6-1.0) mg/dL Est Cr Clr Drug Dosing mL/min Estimated GFR (MDRD) (>60) Glucose (74-106) mg/dL POC Glucose 169 H (74-106) mg/dL Lactic Acid (0.4-2.0) mmol/L Calcium (8.5-10.1) mg/dL Procalcitonin ng/mL SARS CoV-2 RNA Rapid BAILEY Result Diagrams: 09/08/21 04:30 09/08/21 04:30 Diego Results Last 24 hrs: Microbiology 09/07/21 09:15 Aerobic Blood Culture - Preliminary Blood - Arm, Left NO GROWTH AFTER 1 DAY Anaerobic Blood Culture - Preliminary NO GROWTH AFTER 1 DAY 09/07/21 09:05 Aerobic Blood Culture - Preliminary Blood - Arm, Right NO GROWTH AFTER 1 DAY Anaerobic Blood Culture - Preliminary NO GROWTH AFTER 1 DAY Sepsis Event Note - Evaluation Sepsis Screening Result: No Definite Risk - Focused Exam Vital Signs: Vital Signs Temp Pulse Resp BP BP Pulse Ox 09/08/21 08:47 130/77 09/08/21 08:41 92 L 09/08/21 06:14 118 H 16 131/70 93 L 09/08/21 05:30 121 H 90 L 09/08/21 04:53 90 L 09/08/21 04:50 87 L 09/08/21 04:44 16 150/74 H 86 L 09/08/21 04:12 37.2 C 120 H 18 159/94 H 87 L 09/08/21 03:53 35.7 C L 09/08/21 03:29 35.5 C L 18 146/81 H 80 L - Problem List Review Problem List Initiated/Reviewed/Updated: Yes - My Orders Last 24 Hours: My Active Orders 09/08/21 11:02 Furosemide [Lasix] 20 mg IVPUSH ONETIME ONE Morphine 2 mg IVPUSH ONETIME ONE methylPREDNISolone Sod Succ [Solu-MEDROL] 125 mg IVPUSH ONETIME ONE oxyCODONE 5 mg PO Q4H PRN 09/08/21 11:04 RT Aerosol Therapy [RC] ASDIRECTED 09/08/21 11:05 Convert IV to Saline Lock [OM.PC] Routine 09/08/21 11:05 Ibuprofen [Motrin] 600 mg PO Q6H PRN 09/08/21 15:00 Albuterol [Proventil Neb Soln] 2.5 mg NEB QIDRT 09/08/21 20:00 methylPREDNISolone Sod Succ [Solu-MEDROL] 40 mg IVPUSH Q8H 09/09/21 05:00 BASIC METABOLIC PANEL,BMP [CHEM] Timed CBC W/O DIFF,HEMOGRAM [HEME] Timed (1) - Plan Plan:: ASSESSMENT AND PLAN - LEFT LUNG PNEUMONIA-procalcitonin level low. Could be bacterial versus potentially viral versus inflammatory. Cultures are still pending. Supplemental oxygen requirements are higher today than yesterday. D-dimer was checked earlier this morning and was normal. -Start IV steroids -Dose of furosemide and saline lock IV -IV ceftriaxone and doxycycline -Supplement oxygen, wean as able -Follow-up cultures ACUTE HYPOXIC RESPIRATORY FAILURE-secondary to current pneumonia. -Supplemental oxygen as needed -Albuterol nebs as needed TYPE 2 DIABETES MELLITUS-sugars controlled so far. They may rise with the initiation of steroids. -Continue outpatient medications -4 times daily glucometers -Low-dose sliding scale Humalog SCHIZOPHRENIA -Continue outpatient medications MAINTENANCE ISSUES -DVT prophylaxis; Lovenox 40 mg subcu daily -GI prophylaxis; not indicated -Welch catheter; not indicated -Nutrition; consistent carbohydrate diet DISPOSITION-anticipate discharge to home after the hospital stay. Helio Lima MD
[2021-09-08] MEDS: Albuterol 0.083% 2.5 MG/3 ML Neb Soln NEB SCH ×3 (11:20→21:45)
[2021-09-08] MEDS: oxyCODONE 5 MG Tab PO PRN ×2 (13:42→18:34)
[2021-09-08] MEDS: Enoxaparin 40 MG/0.4 ML Syringe SUBCUT SCH (13:42)
[2021-09-08] MEDS: Acetaminophen 325 MG Tab PO PRN (17:37)
[2021-09-08] MEDS: methylPREDNISolone Sodium Succinate 40 MG/1 ML SDV IVPUSH SCH (19:24)
[2021-09-08] MEDS: CLOZAPINE 200 MG PO SCH (19:25)
[2021-09-08] MEDS: rOPINIRole 1 MG Tab PO SCH (21:45)
[2021-09-09] MEDS: methylPREDNISolone Sodium Succinate 40 MG/1 ML SDV IVPUSH SCH ×3 (03:18→20:10)
[2021-09-09] MEDS: oxyCODONE 5 MG Tab PO PRN ×2 (03:38→10:40)
[2021-09-09] MEDS: Albuterol 0.083% 2.5 MG/3 ML Neb Soln NEB SCH ×4 (07:20→20:21)
[2021-09-09] MEDS: Ibuprofen 600 MG Tab PO PRN ×2 (08:01→20:02)
[2021-09-09] MEDS: ALPRAZolam 0.5 MG Tab PO SCH ×3 (08:01→20:18)
[2021-09-09] MEDS: Estradiol 0.5 MG Tab PO SCH (08:02)
[2021-09-09] MEDS: Polyethylene Glycol 3350 Powder 17 GM Packet PO SCH (08:02)
[2021-09-09] MEDS: Lisinopril 2.5 MG Tab PO SCH ×2 (08:03→20:12)
[2021-09-09] MEDS: Pantoprazole 40 MG Tab.CR PO SCH (08:03)
[2021-09-09] MEDS: metFORMIN 500 MG Tab PO SCH ×2 (08:03→16:37)
[2021-09-09] MEDS: Gabapentin 300 MG Cap PO SCH ×3 (08:03→20:11)
[2021-09-09] MEDS: OLANZapine 5 MG Tab PO SCH ×2 (08:03→20:10)
[2021-09-09] MEDS: tiZANidine 2 MG Tab PO SCH ×3 (08:03→20:11)
[2021-09-09] MEDS: Insulin Lispro 100 Unit/ML 3 ML KwikPen SUBCUT SCH ×4 (08:06→21:24)
[2021-09-09] MEDS: Doxycycline 100 MG in Sodium Chloride 0.9% 100 ML IV SCH (08:06)
[2021-09-09] MEDS ORDERED: Furosemide 20 MG/2 ML VIAL IVPUSH ONE (09:00)
[2021-09-09] MEDS: cefTRIAXone 1 GM in Sodium Chloride 0.9% 50 ML IV SCH (11:45)
--- NOTE | 2021-09-09 12:20 | PCM.PN ---
- General Info Date of Service: 09/09/21 Subjective Update: No acute events overnight. Respiratory status stable but she is continuing to require 6 to 7 L of supplemental oxygen. She continues to have burning discomfort in her lungs when she takes a deep breath. This does extend up into her throat to some extent. She feels that her energy and breathing are little better today. White count is a little higher today but she did get started on steroids. She has not had any fevers. Minimal cough. Functional Status: Reports: Pain Controlled, Tolerating Diet - Review of Systems Cardiovascular: Reports: Chest Pain - Patient Data Vitals - Most Recent: Last Vital Signs Temp 35.3 C L 09/09/21 10:36 Pulse 107 H 09/09/21 10:43 Resp 18 09/09/21 10:36 BP 126/66 09/09/21 10:36 Pulse Ox 88 L 09/09/21 10:36 Weight - Most Recent: 117.48 kg I&O - Last 24 Hours: Intake & Output 09/08/21 09/09/21 09/09/21 22:59 06:59 14:59 Intake Total 950 Output Total 300 700 Balance -300 250 Lab Results Last 24 Hours: Laboratory Results - last 24 hr 09/08/21 09/08/21 09/09/21 Range/Units 17:14 21:31 04:30 WBC 22.8 H (4.5-11.0) K/uL RBC 3.91 (3.30-5.50) M/uL Hgb 13.0 (12.0-15.0) g/dL Hct 37.7 (36.0-48.0) % MCV 96 (80-98) fL MCH 33 H (27-31) pg MCHC 35 (32-36) % Plt Count (150-400) K/uL Sodium (140-148) mmol/L Potassium (3.6-5.2) mmol/L Chloride (100-108) mmol/L Carbon Dioxide (21-32) mmol/L Anion Gap (5.0-14.0) mmol/L BUN (7-18) mg/dL Creatinine (0.6-1.0) mg/dL Est Cr Clr Drug Dosing mL/min Estimated GFR (MDRD) (>60) Glucose (74-106) mg/dL POC Glucose 312 H 259 H (74-106) mg/dL Calcium (8.5-10.1) mg/dL 09/09/21 09/09/21 09/09/21 Range/Units 04:30 07:20 11:17 WBC (4.5-11.0) K/uL RBC (3.30-5.50) M/uL Hgb (12.0-15.0) g/dL Hct (36.0-48.0) % MCV (80-98) fL MCH (27-31) pg MCHC (32-36) % Plt Count (150-400) K/uL Sodium 135 L (140-148) mmol/L Potassium 5.6 H (3.6-5.2) mmol/L Chloride 102 (100-108) mmol/L Carbon Dioxide 20 L (21-32) mmol/L Anion Gap 18.6 H (5.0-14.0) mmol/L BUN 11 (7-18) mg/dL Creatinine 0.5 L (0.6-1.0) mg/dL Est Cr Clr Drug Dosing 130.55 mL/min Estimated GFR (MDRD) > 60 (>60) Glucose 209 H (74-106) mg/dL POC Glucose 188 H 198 H (74-106) mg/dL Calcium 8.2 L (8.5-10.1) mg/dL Diego Results Last 24 Hours: Microbiology 09/07/21 09:15 Aerobic Blood Culture - Preliminary Blood - Arm, Left NO GROWTH AFTER 2 DAYS Anaerobic Blood Culture - Preliminary NO GROWTH AFTER 2 DAYS 09/07/21 09:05 Aerobic Blood Culture - Preliminary Blood - Arm, Right NO GROWTH AFTER 2 DAYS Anaerobic Blood Culture - Preliminary NO GROWTH AFTER 2 DAYS Med Orders - Current: Current Medications Acetaminophen (Acetaminophen 325 Mg Tab) 650 mg PO Q4H PRN PRN Reason: Pain (Mild 1-3)/fever Last Admin: 09/08/21 17:37 Dose: 650 mg Documented by: Albuterol (Albuterol 0.083% 2.5 Mg/3 Ml Neb Soln) 2.5 mg NEB Q4H PRN PRN Reason: Shortness Of Breath/wheezing Last Admin: 09/08/21 03:52 Dose: 2.5 mg Documented by: Albuterol (Albuterol 0.083% 2.5 Mg/3 Ml Neb Soln) 2.5 mg NEB QIDRT [facility] Last Admin: 09/09/21 10:43 Dose: 2.5 mg Documented by: Alprazolam (Alprazolam 0.5 Mg Tab) 1 mg PO TID [facility] Last Admin: 09/09/21 08:01 Dose: 1 mg Documented by: Dextrose (Glucose Gel 15 Gm In 37.5 Gm Tube) 15 gm PO ONETIME PRN PRN Reason: Hypoglycemia Dextrose/Water (50% Dextrose In Water 50 Ml Syringe) 50 ml IV ONETIME PRN PRN Reason: Hypoglycemia Enoxaparin Sodium (Enoxaparin 40 Mg/0.4 Ml Syringe) 40 mg SUBCUT Q24H [facility] Last Admin: 09/08/21 13:42 Dose: 40 mg Documented by: Estradiol (Estradiol 0.5 Mg Tab) 1.5 mg PO DAILY@0800 [facility] Last Admin: 09/09/21 08:02 Dose: 1.5 mg Documented by: Gabapentin (Gabapentin 300 Mg Cap) 600 mg PO TID [facility] Last Admin: 09/09/21 08:03 Dose: 600 mg Documented by: Ceftriaxone Sodium 1 gm/ (Sodium Chloride) 50 mls @ 100 mls/hr IV Q24H [facility] Last Admin: 09/09/21 11:45 Dose: 100 mls/hr Documented by: Ibuprofen (Ibuprofen 600 Mg Tab) 600 mg PO Q6H PRN PRN Reason: Pain Last Admin: 09/09/21 08:01 Dose: 600 mg Documented by: Insulin Human Lispro (Insulin Lispro 100 Unit/Ml 3 Ml Kwikpen) 0 unit SUBCUT QIDACANDBED [facility]; Protocol Last Admin: 09/09/21 11:47 Dose: 1 unit Documented by: Lisinopril (Lisinopril 2.5 Mg Tab) 2.5 mg PO BID [facility] Last Admin: 09/09/21 08:03 Dose: 2.5 mg Documented by: Metformin HCl (Metformin 500 Mg Tab) 500 mg PO BIDMEALS [facility] Last Admin: 09/09/21 08:03 Dose: 500 mg Documented by: Methylprednisolone Sodium Succinate (Methylprednisolone Sodium Succinate 40 Mg/1 Ml Sdv) 40 mg IVPUSH Q8H [facility] Last Admin: 09/09/21 11:47 Dose: 40 mg Documented by: Non-Formulary Medication (Dulaglutide [Trulicity]) 0.75 mg SQ WEEKLY [facility] Olanzapine (Olanzapine 5 Mg Tab) 15 mg PO BID@ [facility] Last Admin: 09/09/21 08:03 Dose: 15 mg Documented by: Ondansetron HCl (Ondansetron 4 Mg/2 Ml Sdv) 4 mg IV Q4H PRN PRN Reason: Nausea/Vomiting Last Admin: 09/08/21 03:57 Dose: 4 mg Documented by: Oxycodone HCl (Oxycodone 5 Mg Tab) 5 mg PO Q4H PRN PRN Reason: Pain (moderate 4-6) Last Admin: 09/09/21 10:40 Dose: 5 mg Documented by: Pantoprazole Sodium (Pantoprazole 40 Mg Tab.Cr) 40 mg PO ACBREAKFAST [facility] Last Admin: 09/09/21 08:03 Dose: 40 mg Documented by: Clozapine 200mg Tab ((Ptom)) 0 each PO BEDTIME@1999 [facility] Last Admin: 09/08/21 19:25 Dose: 1 each Documented by: Polyethylene Glycol (Polyethylene Glycol 3350 Powder 17 Gm Packet) 17 gm PO DAILY PRN PRN Reason: Constipation Polyethylene Glycol (Polyethylene Glycol 3350 Powder 17 Gm Packet) 17 gm PO DAILY [facility] Last Admin: 09/09/21 08:02 Dose: 17 gm Documented by: Ropinirole HCl (Ropinirole 1 Mg Tab) 1 mg PO BEDTIME [facility] Last Admin: 09/08/21 21:45 Dose: 1 mg Documented by: Sodium Chloride (Sodium Chloride 0.9% 10 Ml Syringe) 10 ml FLUSH ASDIRECTED PRN PRN Reason: Keep Vein Open Tizanidine HCl (Tizanidine 2 Mg Tab) 2 mg PO TID@0800,1399,1999 [facility] Last Admin: 09/09/21 08:03 Dose: 2 mg Documented by: Discontinued Medications Acetaminophen (Acetaminophen 500 Mg Tab) 1,000 mg PO Q6H PRN PRN Reason: Pain Last Admin: 09/07/21 09:24 Dose: 1,000 mg Documented by: Doxycycline Hyclate (Doxycycline 100 Mg Cap) 100 mg PO ONETIME ONE Stop: 09/07/21 09:01 Last Admin: 09/07/21 09:23 Dose: 100 mg Documented by: Furosemide (Furosemide 20 Mg/2 Ml Vial) 20 mg IVPUSH ONETIME ONE Stop: 09/08/21 11:03 Last Admin: 09/08/21 11:22 Dose: 20 mg Documented by: Furosemide (Furosemide 20 Mg/2 Ml Vial) 20 mg IVPUSH ONETIME ONE Stop: 09/09/21 09:01 Last Admin: 09/09/21 10:40 Dose: 20 mg Documented by: Ceftriaxone Sodium 1 gm/ (Sodium Chloride) 50 mls @ 100 mls/hr IV ONETIME ONE Stop: 09/07/21 09:59 Last Admin: 09/07/21 09:23 Dose: 100 mls/hr Documented by: Sodium Chloride (Normal Saline) 1,000 mls @ 125 mls/hr IV ASDIRECTED [facility] Last Admin: 09/08/21 04:03 Dose: 125 mls/hr Documented by: Doxycycline Hyclate 100 mg/ (Sodium Chloride) 100 mls @ 100 mls/hr IV Q12H [facility] Last Admin: 09/09/21 08:06 Dose: 100 mls/hr Documented by: Meropenem 1 gm/ Sodium (Chloride) 100 mls @ 200 mls/hr IV ONETIME ONE Stop: 09/08/21 04:39 Last Admin: 09/08/21 04:34 Dose: 200 mls/hr Documented by: Acetaminophen 1,000 mg/ Premix 100 mls @ 400 mls/hr IV NOW ONE Stop: 09/08/21 04:25 Last Admin: 09/08/21 04:19 Dose: 400 mls/hr Documented by: Ibuprofen (Ibuprofen 400 Mg Tab) 400 mg PO Q6H PRN PRN Reason: Pain Last Admin: 09/08/21 08:50 Dose: 400 mg Documented by: Ibuprofen (Ibuprofen 400 Mg Tab) 600 mg PO Q6H PRN PRN Reason: Pain Last Admin: 09/08/21 14:57 Dose: 600 mg Documented by: Methylprednisolone Sodium Succinate (Methylprednisolone Sodium Succinate 125 Mg/2 Ml Sdv) 125 mg IVPUSH ONETIME ONE Stop: 09/08/21 04:33 Last Admin: 09/08/21 04:38 Dose: 125 mg Documented by: Methylprednisolone Sodium Succinate (Methylprednisolone Sodium Succinate 125 Mg/2 Ml Sdv) 125 mg IVPUSH ONETIME ONE Stop: 09/08/21 11:03 Last Admin: 09/08/21 11:22 Dose: 125 mg Documented by: Morphine Sulfate (Morphine 2 Mg/Ml Syringe) 2 mg IVPUSH STAT STA Stop: 09/08/21 04:10 Last Admin: 09/08/21 04:29 Dose: 2 mg Documented by: Morphine Sulfate (Morphine 2 Mg/Ml Syringe) 2 mg IVPUSH ONETIME ONE Stop: 09/08/21 11:03 Last Admin: 09/08/21 11:23 Dose: 2 mg Documented by: Potassium Chloride (Potassium Chloride 20 Meq Tab.Er) 40 meq PO ONETIME ONE Stop: 09/08/21 10:51 Last Admin: 09/08/21 11:23 Dose: 40 meq Documented by: Sodium Chloride (Sodium Chloride 0.9% 10 Ml Syringe) 10 ml FLUSH ASDIRECTED PRN PRN Reason: Keep Vein Open Last Admin: 09/07/21 07:58 Dose: 10 ml Documented by: - Exam Quality Assessment: Supplemental Oxygen General: Alert, Oriented, Cooperative, No Acute Distress Neck: JVD Lungs: Normal Respiratory Effort, Crackles (both bases and mid lungs ) Cardiovascular: Regular Rate, Regular Rhythm GI/Abdominal Exam: Soft, No Distention Extremities: Pedal Edema (trace bilateral ankle edema ). No: Increased Warmth Skin: Warm, Dry Psy/Mental Status: Alert, Normal Affect - Patient Data Lab Results Last 24 hrs: Laboratory Results - last 24 hr 09/08/21 09/08/21 09/09/21 Range/Units 17:14 21:31 04:30 WBC 22.8 H (4.5-11.0) K/uL RBC 3.91 (3.30-5.50) M/uL Hgb 13.0 (12.0-15.0) g/dL Hct 37.7 (36.0-48.0) % MCV 96 (80-98) fL MCH 33 H (27-31) pg MCHC 35 (32-36) % Plt Count (150-400) K/uL Sodium (140-148) mmol/L Potassium (3.6-5.2) mmol/L Chloride (100-108) mmol/L Carbon Dioxide (21-32) mmol/L Anion Gap (5.0-14.0) mmol/L BUN (7-18) mg/dL Creatinine (0.6-1.0) mg/dL Est Cr Clr Drug Dosing mL/min Estimated GFR (MDRD) (>60) Glucose (74-106) mg/dL POC Glucose 312 H 259 H (74-106) mg/dL Calcium (8.5-10.1) mg/dL 09/09/21 09/09/21 09/09/21 Range/Units 04:30 07:20 11:17 WBC (4.5-11.0) K/uL RBC (3.30-5.50) M/uL Hgb (12.0-15.0) g/dL Hct (36.0-48.0) % MCV (80-98) fL MCH (27-31) pg MCHC (32-36) % Plt Count (150-400) K/uL Sodium 135 L (140-148) mmol/L Potassium 5.6 H (3.6-5.2) mmol/L Chloride 102 (100-108) mmol/L Carbon Dioxide 20 L (21-32) mmol/L Anion Gap 18.6 H (5.0-14.0) mmol/L BUN 11 (7-18) mg/dL Creatinine 0.5 L (0.6-1.0) mg/dL Est Cr Clr Drug Dosing 130.55 mL/min Estimated GFR (MDRD) > 60 (>60) Glucose 209 H (74-106) mg/dL POC Glucose 188 H 198 H (74-106) mg/dL Calcium 8.2 L (8.5-10.1) mg/dL Result Diagrams: 09/09/21 04:30 09/09/21 04:30 Diego Results Last 24 hrs: Microbiology 09/07/21 09:15 Aerobic Blood Culture - Preliminary Blood - Arm, Left NO GROWTH AFTER 2 DAYS Anaerobic Blood Culture - Preliminary NO GROWTH AFTER 2 DAYS 09/07/21 09:05 Aerobic Blood Culture - Preliminary Blood - Arm, Right NO GROWTH AFTER 2 DAYS Anaerobic Blood Culture - Preliminary NO GROWTH AFTER 2 DAYS Sepsis Event Note - Evaluation Sepsis Screening Result: Sepsis Risk - Focused Exam Vital Signs: Vital Signs Temp Pulse Resp BP BP Pulse Ox 09/09/21 10:43 107 H 09/09/21 10:36 35.3 C L 107 H 18 126/66 88 L 09/09/21 08:03 119/73 09/09/21 07:25 92 L 09/09/21 07:00 35.1 C L 93 18 119/73 92 L 09/09/21 03:18 34.8 C L 91 18 124/64 90 L 09/09/21 01:18 92 L - Problem List Review Problem List Initiated/Reviewed/Updated: Yes - My Orders Last 24 Hours: My Active Orders 09/08/21 14:58 Ibuprofen [Motrin] 600 mg PO Q6H PRN 09/08/21 20:00 methylPREDNISolone Sod Succ [Solu-MEDROL] 40 mg IVPUSH Q8H 09/09/21 12:16 Morphine 2 mg IVPUSH Q2H PRN 09/09/21 12:30 Levofloxacin/Dextrose 5%-Water [Levaquin in D5W 750 MG/150 ML] 750 mg Premix Bag 1 bag IV Q24H 09/09/21 16:00 Furosemide [Lasix] 40 mg IVPUSH ONETIME ONE 09/10/21 05:00 BASIC METABOLIC PANEL,BMP [CHEM] Timed C-REACTIVE PROTEIN [CHEM] Timed CBC W/O DIFF,HEMOGRAM [HEME] Timed (1) ESR [SEDIMENTATION RATE MANUAL] [HEME] Timed - Plan Plan:: ASSESSMENT AND PLAN - LEFT LUNG PNEUMONIA-procalcitonin level low. Could be bacterial versus potentially viral versus inflammatory. Cultures are pending but negative so far. Supplemental oxygen requirements stable compared to yesterday. Some evidence for volume overload. -Continue IV steroids -2 doses of furosemide today -Discontinue doxycycline start levofloxacin -Continue ceftriaxone -Supplement oxygen, wean as able -Follow-up cultures ACUTE HYPOXIC RESPIRATORY FAILURE-secondary to current pneumonia. -Supplemental oxygen as needed -Albuterol nebs as needed TYPE 2 DIABETES MELLITUS-sugars controlled so far. -Continue outpatient medications -4 times daily glucometers -Low-dose sliding scale Humalog SCHIZOPHRENIA -Continue outpatient medications MAINTENANCE ISSUES -DVT prophylaxis; Lovenox 40 mg subcu daily -GI prophylaxis; not indicated -Welch catheter; not indicated -Nutrition; consistent carbohydrate diet DISPOSITION-anticipate discharge to home after the hospital stay. Helio Lima MD
[2021-09-09] MEDS: Acetaminophen 325 MG Tab PO PRN (13:24)
[2021-09-09] MEDS: Morphine 2 MG/ML SYRINGE IVPUSH PRN ×3 (13:24→20:03)
[2021-09-09] MEDS: Enoxaparin 40 MG/0.4 ML Syringe SUBCUT SCH (13:25)
[2021-09-09] MEDS: Levofloxacin/Dextrose 5%-Water 750 MG in Premix Bag 1 BAG IV SCH (14:27)
[2021-09-09] MEDS ORDERED: Furosemide 40 MG/4 ML VIAL IVPUSH ONE (16:00)
[2021-09-09] MEDS: CLOZAPINE 200 MG PO SCH (20:09)
[2021-09-09] MEDS: rOPINIRole 1 MG Tab PO SCH (20:13)
[2021-09-10] MEDS: methylPREDNISolone Sodium Succinate 40 MG/1 ML SDV IVPUSH SCH ×3 (03:46→20:34)
[2021-09-10] MEDS: Ibuprofen 600 MG Tab PO PRN ×3 (04:49→20:37)
[2021-09-10] MEDS: Morphine 2 MG/ML SYRINGE IVPUSH PRN ×3 (04:50→11:46)
[2021-09-10] MEDS: Albuterol 0.083% 2.5 MG/3 ML Neb Soln NEB SCH ×4 (07:14→20:37)
[2021-09-10] MEDS: Acetaminophen 325 MG Tab PO PRN ×2 (07:46→15:30)
[2021-09-10] MEDS: Insulin Lispro 100 Unit/ML 3 ML KwikPen SUBCUT SCH ×4 (08:00→20:25)
--- NOTE | 2021-09-10 08:24 | PCM.PN ---
- General Info Date of Service: 09/10/21 Subjective Update: Overnight the patient had increasing requirements for supplemental oxygen. She feels fatigued. Still has burning pain with respiration. She does not feel significantly more short of breath than she has. She has moderate cough. She has not had any fevers. Blood sugar control has been acceptable. Appetite is okay. When she was up to 15 L via nonrebreather she was transferred to the intensive care unit this morning. Functional Status: Reports: Pain Controlled, Tolerating Diet - Review of Systems Pulmonary: Reports: Shortness of Breath - Patient Data Vitals - Most Recent: Last Vital Signs Temp 35 C L 09/10/21 07:30 Pulse 104 H 09/10/21 07:30 Resp 15 09/10/21 07:30 BP 115/66 09/10/21 07:30 Pulse Ox 85 L 09/10/21 07:30 Weight - Most Recent: 117.48 kg I&O - Last 24 Hours: Intake & Output 09/09/21 09/10/21 09/10/21 22:59 06:59 14:59 Intake Total 1080 Output Total 4125 450 400 Balance -3045 -450 -400 Lab Results Last 24 Hours: Laboratory Results - last 24 hr 09/09/21 09/09/21 09/09/21 Range/Units 11:17 16:19 21:17 WBC (4.5-11.0) K/uL RBC (3.30-5.50) M/uL Hgb (12.0-15.0) g/dL Hct (36.0-48.0) % MCV (80-98) fL MCH (27-31) pg MCHC (32-36) % Plt Count (150-400) K/uL ESR (0-25) mm/hr Sodium (140-148) mmol/L Potassium (3.6-5.2) mmol/L Chloride (100-108) mmol/L Carbon Dioxide (21-32) mmol/L Anion Gap (5.0-14.0) mmol/L BUN (7-18) mg/dL Creatinine (0.6-1.0) mg/dL Est Cr Clr Drug Dosing mL/min Estimated GFR (MDRD) (>60) Glucose (74-106) mg/dL POC Glucose 198 H 177 H 137 H (74-106) mg/dL Calcium (8.5-10.1) mg/dL C-Reactive Protein (0.0-0.3) mg/dL 09/10/21 09/10/21 09/10/21 Range/Units 04:30 04:30 07:28 WBC 25.2 H (4.5-11.0) K/uL RBC 3.97 (3.30-5.50) M/uL Hgb 12.7 (12.0-15.0) g/dL Hct 39.0 (36.0-48.0) % MCV 98 (80-98) fL MCH 32 H (27-31) pg MCHC 33 (32-36) % Plt Count 359 (150-400) K/uL ESR 39 H (0-25) mm/hr Sodium 140 (140-148) mmol/L Potassium 4.4 (3.6-5.2) mmol/L Chloride 103 (100-108) mmol/L Carbon Dioxide 26 (21-32) mmol/L Anion Gap 11.0 (5.0-14.0) mmol/L BUN 17 D (7-18) mg/dL Creatinine 0.7 (0.6-1.0) mg/dL Est Cr Clr Drug Dosing 93.25 mL/min Estimated GFR (MDRD) > 60 (>60) Glucose 169 H (74-106) mg/dL POC Glucose 144 H (74-106) mg/dL Calcium 8.6 (8.5-10.1) mg/dL C-Reactive Protein 4.99 H (0.0-0.3) mg/dL Diego Results Last 24 Hours: Microbiology 09/07/21 09:15 Aerobic Blood Culture - Preliminary Blood - Arm, Left NO GROWTH AFTER 2 DAYS Anaerobic Blood Culture - Preliminary NO GROWTH AFTER 2 DAYS 09/07/21 09:05 Aerobic Blood Culture - Preliminary Blood - Arm, Right NO GROWTH AFTER 2 DAYS Anaerobic Blood Culture - Preliminary NO GROWTH AFTER 2 DAYS Med Orders - Current: Current Medications Acetaminophen (Acetaminophen 325 Mg Tab) 650 mg PO Q4H PRN PRN Reason: Pain (Mild 1-3)/fever Last Admin: 09/10/21 07:46 Dose: 650 mg Documented by: Albuterol (Albuterol 0.083% 2.5 Mg/3 Ml Neb Soln) 2.5 mg NEB Q4H PRN PRN Reason: Shortness Of Breath/wheezing Last Admin: 09/08/21 03:52 Dose: 2.5 mg Documented by: Albuterol (Albuterol 0.083% 2.5 Mg/3 Ml Neb Soln) 2.5 mg NEB QIDRT [facility] Last Admin: 09/10/21 07:14 Dose: 2.5 mg Documented by: Alprazolam (Alprazolam 0.5 Mg Tab) 1 mg PO TID [facility] Last Admin: 09/09/21 20:18 Dose: 1 mg Documented by: Dextrose (Glucose Gel 15 Gm In 37.5 Gm Tube) 15 gm PO ONETIME PRN PRN Reason: Hypoglycemia Dextrose/Water (50% Dextrose In Water 50 Ml Syringe) 50 ml IV ONETIME PRN PRN Reason: Hypoglycemia Enoxaparin Sodium (Enoxaparin 40 Mg/0.4 Ml Syringe) 40 mg SUBCUT Q24H [facility] Last Admin: 09/09/21 13:25 Dose: 40 mg Documented by: Estradiol (Estradiol 0.5 Mg Tab) 1.5 mg PO DAILY@0800 [facility] Last Admin: 09/09/21 08:02 Dose: 1.5 mg Documented by: Furosemide (Furosemide 40 Mg/4 Ml Vial) 40 mg IVPUSH DAILY [facility] Gabapentin (Gabapentin 300 Mg Cap) 600 mg PO TID [facility] Last Admin: 09/09/21 20:11 Dose: 600 mg Documented by: Levofloxacin/Dextrose 750 mg/ (Premix) 150 mls @ 100 mls/hr IV Q24H [facility] Last Admin: 09/09/21 14:27 Dose: 100 mls/hr Documented by: Ibuprofen (Ibuprofen 600 Mg Tab) 600 mg PO Q6H PRN PRN Reason: Pain Last Admin: 09/10/21 04:49 Dose: 600 mg Documented by: Insulin Human Lispro (Insulin Lispro 100 Unit/Ml 3 Ml Kwikpen) 0 unit SUBCUT QIDACANDBED [facility]; Protocol Last Admin: 09/10/21 08:00 Dose: Not Given Documented by: Lisinopril (Lisinopril 2.5 Mg Tab) 2.5 mg PO BID [facility] Last Admin: 09/09/21 20:12 Dose: 2.5 mg Documented by: Metformin HCl (Metformin 500 Mg Tab) 500 mg PO BIDMEALS [facility] Last Admin: 09/09/21 16:37 Dose: 500 mg Documented by: Methylprednisolone Sodium Succinate (Methylprednisolone Sodium Succinate 40 Mg/1 Ml Sdv) 40 mg IVPUSH Q8H [facility] Last Admin: 09/10/21 03:46 Dose: 40 mg Documented by: Morphine Sulfate (Morphine 2 Mg/Ml Syringe) 2 mg IVPUSH Q2H PRN PRN Reason: Pain (severe 7-10) Last Admin: 09/10/21 07:48 Dose: 2 mg Documented by: Non-Formulary Medication (Dulaglutide [Trulicity]) 0.75 mg SQ Q7D [facility] Olanzapine (Olanzapine 5 Mg Tab) 15 mg PO BID@ [facility] Last Admin: 09/09/21 20:10 Dose: 15 mg Documented by: Ondansetron HCl (Ondansetron 4 Mg/2 Ml Sdv) 4 mg IV Q4H PRN PRN Reason: Nausea/Vomiting Last Admin: 09/08/21 03:57 Dose: 4 mg Documented by: Oxycodone HCl (Oxycodone 5 Mg Tab) 5 mg PO Q4H PRN PRN Reason: Pain (moderate 4-6) Last Admin: 09/09/21 10:40 Dose: 5 mg Documented by: Pantoprazole Sodium (Pantoprazole 40 Mg Tab.Cr) 40 mg PO ACBREAKFAST [facility] Last Admin: 09/09/21 08:03 Dose: 40 mg Documented by: Clozapine 200mg Tab ((Ptom)) 0 each PO BEDTIME@1999 [facility] Last Admin: 09/09/21 20:09 Dose: 1 each Documented by: Polyethylene Glycol (Polyethylene Glycol 3350 Powder 17 Gm Packet) 17 gm PO DAILY PRN PRN Reason: Constipation Polyethylene Glycol (Polyethylene Glycol 3350 Powder 17 Gm Packet) 17 gm PO DAILY [facility] Last Admin: 09/09/21 08:02 Dose: 17 gm Documented by: Ropinirole HCl (Ropinirole 1 Mg Tab) 1 mg PO BEDTIME [facility] Last Admin: 09/09/21 20:13 Dose: 1 mg Documented by: Sodium Chloride (Sodium Chloride 0.9% 10 Ml Syringe) 10 ml FLUSH ASDIRECTED PRN PRN Reason: Keep Vein Open Tizanidine HCl (Tizanidine 2 Mg Tab) 2 mg PO TID@0800,1399,1999 [facility] Last Admin: 09/09/21 20:11 Dose: 2 mg Documented by: Discontinued Medications Acetaminophen (Acetaminophen 500 Mg Tab) 1,000 mg PO Q6H PRN PRN Reason: Pain Last Admin: 09/07/21 09:24 Dose: 1,000 mg Documented by: Doxycycline Hyclate (Doxycycline 100 Mg Cap) 100 mg PO ONETIME ONE Stop: 09/07/21 09:01 Last Admin: 09/07/21 09:23 Dose: 100 mg Documented by: Furosemide (Furosemide 20 Mg/2 Ml Vial) 20 mg IVPUSH ONETIME ONE Stop: 09/08/21 11:03 Last Admin: 09/08/21 11:22 Dose: 20 mg Documented by: Furosemide (Furosemide 20 Mg/2 Ml Vial) 20 mg IVPUSH ONETIME ONE Stop: 09/09/21 09:01 Last Admin: 09/09/21 10:40 Dose: 20 mg Documented by: Furosemide (Furosemide 40 Mg/4 Ml Vial) 40 mg IVPUSH ONETIME ONE Stop: 09/09/21 16:01 Last Admin: 09/09/21 16:37 Dose: 40 mg Documented by: Ceftriaxone Sodium 1 gm/ (Sodium Chloride) 50 mls @ 100 mls/hr IV ONETIME ONE Stop: 09/07/21 09:59 Last Admin: 09/07/21 09:23 Dose: 100 mls/hr Documented by: Sodium Chloride (Normal Saline) 1,000 mls @ 125 mls/hr IV ASDIRECTED [facility] Last Admin: 09/08/21 04:03 Dose: 125 mls/hr Documented by: Doxycycline Hyclate 100 mg/ (Sodium Chloride) 100 mls @ 100 mls/hr IV Q12H [facility] Last Admin: 09/09/21 08:06 Dose: 100 mls/hr Documented by: Ceftriaxone Sodium 1 gm/ (Sodium Chloride) 50 mls @ 100 mls/hr IV Q24H [facility] Last Admin: 09/09/21 11:45 Dose: 100 mls/hr Documented by: Meropenem 1 gm/ Sodium (Chloride) 100 mls @ 200 mls/hr IV ONETIME ONE Stop: 09/08/21 04:39 Last Admin: 09/08/21 04:34 Dose: 200 mls/hr Documented by: Acetaminophen 1,000 mg/ Premix 100 mls @ 400 mls/hr IV NOW ONE Stop: 09/08/21 04:25 Last Admin: 09/08/21 04:19 Dose: 400 mls/hr Documented by: Ibuprofen (Ibuprofen 400 Mg Tab) 400 mg PO Q6H PRN PRN Reason: Pain Last Admin: 09/08/21 08:50 Dose: 400 mg Documented by: Ibuprofen (Ibuprofen 400 Mg Tab) 600 mg PO Q6H PRN PRN Reason: Pain Last Admin: 09/08/21 14:57 Dose: 600 mg Documented by: Methylprednisolone Sodium Succinate (Methylprednisolone Sodium Succinate 125 Mg/ 2 Ml Sdv) 125 mg IVPUSH ONETIME ONE Stop: 09/08/21 04:33 Last Admin: 09/08/21 04:38 Dose: 125 mg Documented by: Methylprednisolone Sodium Succinate (Methylprednisolone Sodium Succinate 125 Mg/2 Ml Sdv) 125 mg IVPUSH ONETIME ONE Stop: 09/08/21 11:03 Last Admin: 09/08/21 11:22 Dose: 125 mg Documented by: Morphine Sulfate (Morphine 2 Mg/Ml Syringe) 2 mg IVPUSH STAT STA Stop: 09/08/21 04:10 Last Admin: 09/08/21 04:29 Dose: 2 mg Documented by: Morphine Sulfate (Morphine 2 Mg/Ml Syringe) 2 mg IVPUSH ONETIME ONE Stop: 09/08/21 11:03 Last Admin: 09/08/21 11:23 Dose: 2 mg Documented by: Potassium Chloride (Potassium Chloride 20 Meq Tab.Er) 40 meq PO ONETIME ONE Stop: 09/08/21 10:51 Last Admin: 09/08/21 11:23 Dose: 40 meq Documented by: Sodium Chloride (Sodium Chloride 0.9% 10 Ml Syringe) 10 ml FLUSH ASDIRECTED PRN PRN Reason: Keep Vein Open Last Admin: 09/07/21 07:58 Dose: 10 ml Documented by: - Exam Quality Assessment: Supplemental Oxygen General: Alert, Oriented, Cooperative, No Acute Distress Neck: Trachea Midline, JVD Lungs: Normal Respiratory Effort, Crackles (moderate both lower lungs ) Cardiovascular: Regular Rate, Regular Rhythm GI/Abdominal Exam: Soft, No Distention Extremities: Pedal Edema. No: Increased Warmth Skin: Warm, Dry Psy/Mental Status: Alert, Anxious - Patient Data Lab Results Last 24 hrs: Laboratory Results - last 24 hr 09/09/21 09/09/21 09/09/21 Range/Units 11:17 16:19 21:17 WBC (4.5-11.0) K/uL RBC (3.30-5.50) M/uL Hgb (12.0-15.0) g/dL Hct (36.0-48.0) % MCV (80-98) fL MCH (27-31) pg MCHC (32-36) % Plt Count (150-400) K/uL ESR (0-25) mm/hr Sodium (140-148) mmol/L Potassium (3.6-5.2) mmol/L Chloride (100-108) mmol/L Carbon Dioxide (21-32) mmol/L Anion Gap (5.0-14.0) mmol/L BUN (7-18) mg/dL Creatinine (0.6-1.0) mg/dL Est Cr Clr Drug Dosing mL/min Estimated GFR (MDRD) (>60) Glucose (74-106) mg/dL POC Glucose 198 H 177 H 137 H (74-106) mg/dL Calcium (8.5-10.1) mg/dL C-Reactive Protein (0.0-0.3) mg/dL 09/10/21 09/10/21 09/10/21 Range/Units 04:30 04:30 07:28 WBC 25.2 H (4.5-11.0) K/uL RBC 3.97 (3.30-5.50) M/uL Hgb 12.7 (12.0-15.0) g/dL Hct 39.0 (36.0-48.0) % MCV 98 (80-98) fL MCH 32 H (27-31) pg MCHC 33 (32-36) % Plt Count 359 (150-400) K/uL ESR 39 H (0-25) mm/hr Sodium 140 (140-148) mmol/L Potassium 4.4 (3.6-5.2) mmol/L Chloride 103 (100-108) mmol/L Carbon Dioxide 26 (21-32) mmol/L Anion Gap 11.0 (5.0-14.0) mmol/L BUN 17 D (7-18) mg/dL Creatinine 0.7 (0.6-1.0) mg/dL Est Cr Clr Drug Dosing 93.25 mL/min Estimated GFR (MDRD) > 60 (>60) Glucose 169 H (74-106) mg/dL POC Glucose 144 H (74-106) mg/dL Calcium 8.6 (8.5-10.1) mg/dL C-Reactive Protein 4.99 H (0.0-0.3) mg/dL Result Diagrams: 09/10/21 04:30 09/10/21 04:30 Diego Results Last 24 hrs: Microbiology 09/07/21 09:15 Aerobic Blood Culture - Preliminary Blood - Arm, Left NO GROWTH AFTER 2 DAYS Anaerobic Blood Culture - Preliminary NO GROWTH AFTER 2 DAYS 09/07/21 09:05 Aerobic Blood Culture - Preliminary Blood - Arm, Right NO GROWTH AFTER 2 DAYS Anaerobic Blood Culture - Preliminary NO GROWTH AFTER 2 DAYS Sepsis Event Note - Evaluation Sepsis Screening Result: Sepsis Risk - Focused Exam Vital Signs: Vital Signs Temp Pulse Resp BP Pulse Ox 09/10/21 07:30 35 C L 104 H 15 115/66 85 L 09/10/21 07:22 92 L 09/10/21 03:00 35 C L 98 18 116/52 L 91 L 09/10/21 01:16 91 L 09/09/21 22:59 35 C L 101 H 18 103/55 L 91 L - Problem List Review Problem List Initiated/Reviewed/Updated: Yes - My Orders Last 24 Hours: My Active Orders 09/09/21 12:16 Morphine 2 mg IVPUSH Q2H PRN 09/09/21 13:00 Levofloxacin/Dextrose 5%-Water [Levaquin in D5W 750 MG/150 ML] 750 mg Premix Bag 1 bag IV Q24H 09/10/21 08:06 Chest 1V Frontal [CR] Urgent 09/10/21 08:19 Transfer Patient (Change bed) [ADT] Routine 09/10/21 08:21 Cardiac Monitoring [RC] .As Directed 09/10/21 08:22 BLOOD GAS ARTERIAL [BG] Routine LACTIC ACID [CHEM] Routine TROPONIN I [CHEM] Routine 09/10/21 08:30 Meropenem [Merrem] 1 gm Sodium Chloride 0.9% [Normal Saline] 100 ml IV Q8H 09/10/21 09:00 Furosemide [Lasix] 40 mg IVPUSH DAILY Vancomycin 1.75 gm Sodium Chloride 0.9% [Normal Saline] 250 ml IV Q12H - Plan Plan:: ASSESSMENT AND PLAN - LEFT LUNG PNEUMONIA-complicated by acute respiratory failure with hypoxia. Bacterial versus potentially viral versus inflammatory. Cultures pending but negative so far. Evidence for volume overload today. Increasing infiltrate seen on chest x-ray. Increasing supplemental oxygen requirements. -Continue IV steroids -2 doses of furosemide today -Continue levofloxacin, start meropenem and vancomycin -Supplement oxygen, wean as able -Follow-up cultures -Transferred to the intensive care unit for close monitoring in case she requires NIPPV or intubation ACUTE HYPOXIC RESPIRATORY FAILURE-secondary to current pneumonia. -Supplemental oxygen as needed -Albuterol nebs as needed TYPE 2 DIABETES MELLITUS-sugars controlled so far. -Continue outpatient medications -4 times daily glucometers -Low-dose sliding scale Humalog SCHIZOPHRENIA -Continue outpatient medications MAINTENANCE ISSUES -DVT prophylaxis; Lovenox 40 mg subcu daily -GI prophylaxis; not indicated -Welch catheter; not indicated -Nutrition; consistent carbohydrate diet DISPOSITION-anticipate discharge to home after the hospital stay. Helio Lima MD
[2021-09-10] MEDS: Furosemide 40 MG/4 ML VIAL IVPUSH SCH (08:30)
[2021-09-10] MEDS: Pantoprazole 40 MG Tab.CR PO SCH (08:31)
[2021-09-10] MEDS: Estradiol 0.5 MG Tab PO SCH (08:31)
[2021-09-10] MEDS: OLANZapine 5 MG Tab PO SCH ×2 (08:31→20:35)
[2021-09-10] MEDS: Gabapentin 300 MG Cap PO SCH ×3 (08:31→20:35)
[2021-09-10] MEDS: Lisinopril 2.5 MG Tab PO SCH ×2 (08:31→20:36)
[2021-09-10] MEDS: Polyethylene Glycol 3350 Powder 17 GM Packet PO SCH (08:31)
[2021-09-10] MEDS: metFORMIN 500 MG Tab PO SCH ×2 (08:31→16:48)
[2021-09-10] MEDS: tiZANidine 2 MG Tab PO SCH ×3 (08:32→20:35)
[2021-09-10] MEDS: ALPRAZolam 0.5 MG Tab PO SCH ×3 (08:49→20:37)
[2021-09-10] MEDS: Meropenem 1 GM in Sodium Chloride 0.9% 100 ML IV SCH ×2 (09:03→16:50)
--- NOTE | 2021-09-10 09:24 | CR ---
CHEST: Portable 09/10/2021 and 8:24 AM CLINICAL HISTORY:Increasing hypoxia COMPARISON:09/07/2021 FINDINGS: There is moderate diffuse pneumonic infiltrate throughout the left lung. There is also patchy infiltrate in the right infrahilar region. This is a significant change since prior study. Impression: Moderate increasing pneumonic infiltrates left greater than right
[2021-09-10] MEDS: Levofloxacin/Dextrose 5%-Water 750 MG in Premix Bag 1 BAG IV SCH (12:33)
[2021-09-10] MEDS: Enoxaparin 40 MG/0.4 ML Syringe SUBCUT SCH (14:01)
[2021-09-10] MEDS ORDERED: Furosemide 40 MG/4 ML VIAL IVPUSH ONE (17:04)
[2021-09-10] MEDS: oxyCODONE 5 MG Tab PO PRN ×2 (17:27→21:56)
[2021-09-10] MEDS: CLOZAPINE 200 MG PO SCH (20:34)
[2021-09-10] MEDS: rOPINIRole 1 MG Tab PO SCH (20:37)
[2021-09-11] MEDS: Meropenem 1 GM in Sodium Chloride 0.9% 100 ML IV SCH ×4 (00:44→23:59)
[2021-09-11] MEDS: Morphine 2 MG/ML SYRINGE IVPUSH PRN (01:28)
[2021-09-11] MEDS: methylPREDNISolone Sodium Succinate 40 MG/1 ML SDV IVPUSH SCH ×3 (04:23→20:36)
[2021-09-11] MEDS: Albuterol 0.083% 2.5 MG/3 ML Neb Soln NEB SCH ×4 (07:03→20:39)
[2021-09-11] MEDS: Insulin Lispro 100 Unit/ML 3 ML KwikPen SUBCUT SCH ×4 (07:55→21:04)
[2021-09-11] MEDS: Estradiol 0.5 MG Tab PO SCH (08:01)
[2021-09-11] MEDS: Pantoprazole 40 MG Tab.CR PO SCH (08:01)
[2021-09-11] MEDS: OLANZapine 5 MG Tab PO SCH ×2 (08:02→20:36)
[2021-09-11] MEDS: metFORMIN 500 MG Tab PO SCH ×2 (08:02→16:11)
[2021-09-11] MEDS: oxyCODONE 5 MG Tab PO PRN ×4 (08:03→20:45)
[2021-09-11] MEDS: tiZANidine 2 MG Tab PO SCH ×3 (08:03→20:40)
[2021-09-11] MEDS: Polyethylene Glycol 3350 Powder 17 GM Packet PO SCH (08:04)
[2021-09-11] MEDS: Gabapentin 300 MG Cap PO SCH ×3 (08:04→20:37)
[2021-09-11] MEDS: ALPRAZolam 0.5 MG Tab PO SCH ×3 (08:05→20:39)
[2021-09-11] MEDS: Lisinopril 2.5 MG Tab PO SCH ×2 (08:06→20:38)
--- NOTE | 2021-09-11 08:46 | PCM.PN ---
- General Info Date of Service: 09/11/21 Subjective Update: There were no acute events overnight. Oxygenation has been stable though she continues to require 15 L via high flow nasal cannula. She thinks she feels a little bit less short of breath today. No significant cough. Good response to diuresis again yesterday. No fevers. White blood cell count is slightly better today. CRP has improved as well. Functional Status: Reports: Pain Controlled, Tolerating Diet - Review of Systems Pulmonary: Reports: Shortness of Breath, Pleuritic Chest Pain - Patient Data Vitals - Most Recent: Last Vital Signs Temp 36.6 C 09/11/21 08:00 Pulse 88 09/11/21 06:00 Resp 16 09/11/21 08:00 BP 148/100 H 09/11/21 08:06 Pulse Ox 92 L 09/11/21 08:00 Weight - Most Recent: 117.48 kg I&O - Last 24 Hours: Intake & Output 09/10/21 09/11/21 09/11/21 22:59 06:59 14:59 Intake Total 100 Output Total 2600 250 600 Balance -2600 -150 -600 Lab Results Last 24 Hours: Laboratory Results - last 24 hr 09/10/21 09/10/21 09/10/21 Range/Units 08:22 08:22 08:22 WBC (4.5-11.0) K/uL RBC (3.30-5.50) M/uL Hgb (12.0-15.0) g/dL Hct (36.0-48.0) % MCV (80-98) fL MCH (27-31) pg MCHC (32-36) % Plt Count (150-400) K/uL Neut % (Auto) (36-66) % Lymph % (Auto) (24-44) % Rowan % (Auto) (2-6) % Eos % (Auto) (2-4) % Baso % (Auto) (0-1) % Puncture Site Rt radial ABG pH 7.411 (7.350-7.450) ABG pCO2 41.2 (35.0-42.0) mmHg ABG pO2 73.2 L (75.0-100.0) mmHg ABG HCO3 25.7 (22.0-26.0) mmol/L ABG Total CO2 22.7 (21.0-25.0) mmol/L ABG O2 Saturation 95.1 (95.0-98.0) % ABG O2 Content 17.7 (15.0-23.0) %vol ABG Base Excess 1.4 mm/L ABG Hemoglobin 13.5 (12.0-16.0) g/dL ABG Oxyhemoglobin 93.0 % ABG Carboxyhemoglobin 1.3 (0.0-1.6) % ABG Methemoglobin 0.9 % Ramy Test Passed O2 Delivery Device Non rebr mask Oxygen Flow Rate 15.0 L Sodium (140-148) mmol/L Potassium (3.6-5.2) mmol/L Chloride (100-108) mmol/L Carbon Dioxide (21-32) mmol/L Anion Gap (5.0-14.0) mmol/L BUN (7-18) mg/dL Creatinine (0.6-1.0) mg/dL Est Cr Clr Drug Dosing mL/min Estimated GFR (MDRD) (>60) Glucose (74-106) mg/dL POC Glucose (74-106) mg/dL Lactic Acid 1.7 (0.4-2.0) mmol/L Calcium (8.5-10.1) mg/dL Troponin I < 0.017 (0.000-0.056) ng/mL C-Reactive Protein (0.0-0.3) mg/dL 09/10/21 09/10/21 09/10/21 Range/Units 11:20 16:46 20:24 WBC (4.5-11.0) K/uL RBC (3.30-5.50) M/uL Hgb (12.0-15.0) g/dL Hct (36.0-48.0) % MCV (80-98) fL MCH (27-31) pg MCHC (32-36) % Plt Count (150-400) K/uL Neut % (Auto) (36-66) % Lymph % (Auto) (24-44) % Rowan % (Auto) (2-6) % Eos % (Auto) (2-4) % Baso % (Auto) (0-1) % Puncture Site ABG pH (7.350-7.450) ABG pCO2 (35.0-42.0) mmHg ABG pO2 (75.0-100.0) mmHg ABG HCO3 (22.0-26.0) mmol/L ABG Total CO2 (21.0-25.0) mmol/L ABG O2 Saturation (95.0-98.0) % ABG O2 Content (15.0-23.0) %vol ABG Base Excess mm/L ABG Hemoglobin (12.0-16.0) g/dL ABG Oxyhemoglobin % ABG Carboxyhemoglobin (0.0-1.6) % ABG Methemoglobin % Ramy Test O2 Delivery Device Oxygen Flow Rate L Sodium (140-148) mmol/L Potassium (3.6-5.2) mmol/L Chloride (100-108) mmol/L Carbon Dioxide (21-32) mmol/L Anion Gap (5.0-14.0) mmol/L BUN (7-18) mg/dL Creatinine (0.6-1.0) mg/dL Est Cr Clr Drug Dosing mL/min Estimated GFR (MDRD) (>60) Glucose (74-106) mg/dL POC Glucose 179 H 163 H 115 H (74-106) mg/dL Lactic Acid (0.4-2.0) mmol/L Calcium (8.5-10.1) mg/dL Troponin I (0.000-0.056) ng/mL C-Reactive Protein (0.0-0.3) mg/dL 09/11/21 09/11/21 09/11/21 Range/Units 07:54 08:00 08:00 WBC 16.0 H (4.5-11.0) K/uL RBC 4.25 (3.30-5.50) M/uL Hgb 13.8 (12.0-15.0) g/dL Hct 41.3 (36.0-48.0) % MCV 97 (80-98) fL MCH 33 H (27-31) pg MCHC 33 (32-36) % Plt Count 367 (150-400) K/uL Neut % (Auto) 88.4 H (36-66) % Lymph % (Auto) 7.8 L (24-44) % Rowan % (Auto) 3.2 (2-6) % Eos % (Auto) 0.1 L (2-4) % Baso % (Auto) 0.5 (0-1) % Puncture Site ABG pH (7.350-7.450) ABG pCO2 (35.0-42.0) mmHg ABG pO2 (75.0-100.0) mmHg ABG HCO3 (22.0-26.0) mmol/L ABG Total CO2 (21.0-25.0) mmol/L ABG O2 Saturation (95.0-98.0) % ABG O2 Content (15.0-23.0) %vol ABG Base Excess mm/L ABG Hemoglobin (12.0-16.0) g/dL ABG Oxyhemoglobin % ABG Carboxyhemoglobin (0.0-1.6) % ABG Methemoglobin % Ramy Test O2 Delivery Device Oxygen Flow Rate L Sodium 141 (140-148) mmol/L Potassium 4.2 (3.6-5.2) mmol/L Chloride 102 (100-108) mmol/L Carbon Dioxide 29 (21-32) mmol/L Anion Gap 10.4 (5.0-14.0) mmol/L BUN 19 H (7-18) mg/dL Creatinine 0.7 (0.6-1.0) mg/dL Est Cr Clr Drug Dosing 93.25 mL/min Estimated GFR (MDRD) > 60 (>60) Glucose 176 H (74-106) mg/dL POC Glucose 171 H (74-106) mg/dL Lactic Acid (0.4-2.0) mmol/L Calcium 8.8 (8.5-10.1) mg/dL Troponin I (0.000-0.056) ng/mL C-Reactive Protein 1.61 H (0.0-0.3) mg/dL Diego Results Last 24 Hours: Microbiology 09/07/21 09:15 Aerobic Blood Culture - Preliminary Blood - Arm, Left NO GROWTH AFTER 3 DAYS Anaerobic Blood Culture - Preliminary NO GROWTH AFTER 3 DAYS 09/07/21 09:05 Aerobic Blood Culture - Preliminary Blood - Arm, Right NO GROWTH AFTER 3 DAYS Anaerobic Blood Culture - Preliminary NO GROWTH AFTER 3 DAYS Med Orders - Current: Current Medications Acetaminophen (Acetaminophen 325 Mg Tab) 650 mg PO Q4H PRN PRN Reason: Pain (Mild 1-3)/fever Last Admin: 09/10/21 15:30 Dose: 650 mg Documented by: Albuterol (Albuterol 0.083% 2.5 Mg/3 Ml Neb Soln) 2.5 mg NEB Q4H PRN PRN Reason: Shortness Of Breath/wheezing Last Admin: 09/08/21 03:52 Dose: 2.5 mg Documented by: Albuterol (Albuterol 0.083% 2.5 Mg/3 Ml Neb Soln) 2.5 mg NEB QIDRT [facility] Last Admin: 09/11/21 07:03 Dose: 2.5 mg Documented by: Alprazolam (Alprazolam 0.5 Mg Tab) 1 mg PO TID [facility] Last Admin: 09/11/21 08:05 Dose: 1 mg Documented by: Dextrose (Glucose Gel 15 Gm In 37.5 Gm Tube) 15 gm PO ONETIME PRN PRN Reason: Hypoglycemia Dextrose/Water (50% Dextrose In Water 50 Ml Syringe) 50 ml IV ONETIME PRN PRN Reason: Hypoglycemia Enoxaparin Sodium (Enoxaparin 40 Mg/0.4 Ml Syringe) 40 mg SUBCUT Q24H [facility] Last Admin: 09/10/21 14:01 Dose: 40 mg Documented by: Estradiol (Estradiol 0.5 Mg Tab) 1.5 mg PO DAILY@0800 [facility] Last Admin: 09/11/21 08:01 Dose: 1.5 mg Documented by: Furosemide (Furosemide 40 Mg/4 Ml Vial) 40 mg IVPUSH DAILY [facility] Last Admin: 09/10/21 08:30 Dose: 40 mg Documented by: Gabapentin (Gabapentin 300 Mg Cap) 600 mg PO TID [facility] Last Admin: 09/11/21 08:04 Dose: 600 mg Documented by: Levofloxacin/Dextrose 750 mg/ (Premix) 150 mls @ 100 mls/hr IV Q24H [facility] Last Admin: 09/10/21 12:33 Dose: 100 mls/hr Documented by: Meropenem 1 gm/ Sodium (Chloride) 100 mls @ 200 mls/hr IV Q8H [facility] Last Admin: 09/11/21 07:59 Dose: 200 mls/hr Documented by: Vancomycin HCl 1.75 gm/ Sodium (Chloride) 250 mls @ 150 mls/hr IV Q12H [facility] Last Admin: 09/11/21 08:28 Dose: 150 mls/hr Documented by: Ibuprofen (Ibuprofen 600 Mg Tab) 600 mg PO Q6H PRN PRN Reason: Pain Last Admin: 09/10/21 20:37 Dose: 600 mg Documented by: Insulin Human Lispro (Insulin Lispro 100 Unit/Ml 3 Ml Kwikpen) 0 unit SUBCUT QIDACANDBED [facility]; Protocol Last Admin: 09/11/21 07:55 Dose: 1 unit Documented by: Lisinopril (Lisinopril 2.5 Mg Tab) 2.5 mg PO BID [facility] Last Admin: 09/11/21 08:06 Dose: 2.5 mg Documented by: Metformin HCl (Metformin 500 Mg Tab) 500 mg PO BIDMEALS [facility] Last Admin: 09/11/21 08:02 Dose: 500 mg Documented by: Methylprednisolone Sodium Succinate (Methylprednisolone Sodium Succinate 40 Mg/1 Ml Sdv) 40 mg IVPUSH Q8H [facility] Last Admin: 09/11/21 04:23 Dose: 40 mg Documented by: Morphine Sulfate (Morphine 2 Mg/Ml Syringe) 2 mg IVPUSH Q2H PRN PRN Reason: Pain (severe 7-10) Last Admin: 09/11/21 01:28 Dose: 2 mg Documented by: Olanzapine (Olanzapine 5 Mg Tab) 15 mg PO BID@799,1999 [facility] Last Admin: 09/11/21 08:02 Dose: 15 mg Documented by: Ondansetron HCl (Ondansetron 4 Mg/2 Ml Sdv) 4 mg IV Q4H PRN PRN Reason: Nausea/Vomiting Last Admin: 09/08/21 03:57 Dose: 4 mg Documented by: Oxycodone HCl (Oxycodone 5 Mg Tab) 5 mg PO Q4H PRN PRN Reason: Pain (moderate 4-6) Last Admin: 09/11/21 08:03 Dose: 5 mg Documented by: Pantoprazole Sodium (Pantoprazole 40 Mg Tab.Cr) 40 mg PO ACBREAKFAST [facility] Last Admin: 09/11/21 08:01 Dose: 40 mg Documented by: Trulicity 0.75mg 0 each SUBCUT Th@0900 [facility] Last Admin: 09/11/21 08:07 Dose: 1 each Documented by: Clozapine 200mg Tab ((Ptom)) 0 each PO BEDTIME@1999 [facility] Last Admin: 09/10/21 20:34 Dose: 1 each Documented by: Polyethylene Glycol (Polyethylene Glycol 3350 Powder 17 Gm Packet) 17 gm PO DAILY PRN PRN Reason: Constipation Polyethylene Glycol (Polyethylene Glycol 3350 Powder 17 Gm Packet) 17 gm PO DAILY [facility] Last Admin: 09/11/21 08:04 Dose: 17 gm Documented by: Ropinirole HCl (Ropinirole 1 Mg Tab) 1 mg PO BEDTIME [facility] Last Admin: 09/10/21 20:37 Dose: 1 mg Documented by: Sodium Chloride (Sodium Chloride 0.9% 10 Ml Syringe) 10 ml FLUSH ASDIRECTED PRN PRN Reason: Keep Vein Open Tizanidine HCl (Tizanidine 2 Mg Tab) 2 mg PO TID@0800,1400,2000 [facility] Last Admin: 09/11/21 08:03 Dose: 2 mg Documented by: Discontinued Medications Acetaminophen (Acetaminophen 500 Mg Tab) 1,000 mg PO Q6H PRN PRN Reason: Pain Last Admin: 09/07/21 09:24 Dose: 1,000 mg Documented by: Doxycycline Hyclate (Doxycycline 100 Mg Cap) 100 mg PO ONETIME ONE Stop: 09/07/21 09:01 Last Admin: 09/07/21 09:23 Dose: 100 mg Documented by: Furosemide (Furosemide 20 Mg/2 Ml Vial) 20 mg IVPUSH ONETIME ONE Stop: 09/08/21 11:03 Last Admin: 09/08/21 11:22 Dose: 20 mg Documented by: Furosemide (Furosemide 20 Mg/2 Ml Vial) 20 mg IVPUSH ONETIME ONE Stop: 09/09/21 09:01 Last Admin: 09/09/21 10:40 Dose: 20 mg Documented by: Furosemide (Furosemide 40 Mg/4 Ml Vial) 40 mg IVPUSH ONETIME ONE Stop: 09/09/21 16:01 Last Admin: 09/09/21 16:37 Dose: 40 mg Documented by: Furosemide (Furosemide 40 Mg/4 Ml Vial) 40 mg IVPUSH ONETIME ONE Stop: 09/10/21 17:05 Last Admin: 09/10/21 17:27 Dose: 40 mg Documented by: Ceftriaxone Sodium 1 gm/ (Sodium Chloride) 50 mls @ 100 mls/hr IV ONETIME ONE Stop: 09/07/21 09:59 Last Admin: 09/07/21 09:23 Dose: 100 mls/hr Documented by: Sodium Chloride (Normal Saline) 1,000 mls @ 125 mls/hr IV ASDIRECTED [facility] Last Admin: 09/08/21 04:03 Dose: 125 mls/hr Documented by: Doxycycline Hyclate 100 mg/ (Sodium Chloride) 100 mls @ 100 mls/hr IV Q12H [facility] Last Admin: 09/09/21 08:06 Dose: 100 mls/hr Documented by: Ceftriaxone Sodium 1 gm/ (Sodium Chloride) 50 mls @ 100 mls/hr IV Q24H [facility] Last Admin: 09/09/21 11:45 Dose: 100 mls/hr Documented by: Meropenem 1 gm/ Sodium (Chloride) 100 mls @ 200 mls/hr IV ONETIME ONE Stop: 09/08/21 04:39 Last Admin: 09/08/21 04:34 Dose: 200 mls/hr Documented by: Acetaminophen 1,000 mg/ Premix 100 mls @ 400 mls/hr IV NOW ONE Stop: 09/08/21 04:25 Last Admin: 09/08/21 04:19 Dose: 400 mls/hr Documented by: Ibuprofen (Ibuprofen 400 Mg Tab) 400 mg PO Q6H PRN PRN Reason: Pain Last Admin: 09/08/21 08:50 Dose: 400 mg Documented by: Ibuprofen (Ibuprofen 400 Mg Tab) 600 mg PO Q6H PRN PRN Reason: Pain Last Admin: 09/08/21 14:57 Dose: 600 mg Documented by: Methylprednisolone Sodium Succinate (Methylprednisolone Sodium Succinate 125 M g/2 Ml Sdv) 125 mg IVPUSH ONETIME ONE Stop: 09/08/21 04:33 Last Admin: 09/08/21 04:38 Dose: 125 mg Documented by: Methylprednisolone Sodium Succinate (Methylprednisolone Sodium Succinate 125 Mg/ 2 Ml Sdv) 125 mg IVPUSH ONETIME ONE Stop: 09/08/21 11:03 Last Admin: 09/08/21 11:22 Dose: 125 mg Documented by: Morphine Sulfate (Morphine 2 Mg/Ml Syringe) 2 mg IVPUSH STAT STA Stop: 09/08/21 04:10 Last Admin: 09/08/21 04:29 Dose: 2 mg Documented by: Morphine Sulfate (Morphine 2 Mg/Ml Syringe) 2 mg IVPUSH ONETIME ONE Stop: 09/08/21 11:03 Last Admin: 09/08/21 11:23 Dose: 2 mg Documented by: Potassium Chloride (Potassium Chloride 20 Meq Tab.Er) 40 meq PO ONETIME ONE Stop: 09/08/21 10:51 Last Admin: 09/08/21 11:23 Dose: 40 meq Documented by: Sodium Chloride (Sodium Chloride 0.9% 10 Ml Syringe) 10 ml FLUSH ASDIRECTED PRN PRN Reason: Keep Vein Open Last Admin: 09/07/21 07:58 Dose: 10 ml Documented by: - Exam Quality Assessment: Supplemental Oxygen General: Alert, Oriented, Cooperative, No Acute Distress Lungs: Normal Respiratory Effort, Decreased Breath Sounds (both bases), Crackles (mild both bases and moderate mid lungs), Wheezing (rare end exp both lower lungs ) Cardiovascular: Regular Rate, Regular Rhythm, No Murmurs GI/Abdominal Exam: Soft, No Distention Extremities: Pedal Edema. No: Increased Warmth Skin: Warm, Dry Psy/Mental Status: Alert, Normal Affect - Patient Data Lab Results Last 24 hrs: Laboratory Results - last 24 hr 09/10/21 09/10/21 09/10/21 Range/Units 08:22 08:22 08:22 WBC (4.5-11.0) K/uL RBC (3.30-5.50) M/uL Hgb (12.0-15.0) g/dL Hct (36.0-48.0) % MCV (80-98) fL MCH (27-31) pg MCHC (32-36) % Plt Count (150-400) K/uL Neut % (Auto) (36-66) % Lymph % (Auto) (24-44) % Rowan % (Auto) (2-6) % Eos % (Auto) (2-4) % Baso % (Auto) (0-1) % Puncture Site Rt radial ABG pH 7.411 (7.350-7.450) ABG pCO2 41.2 (35.0-42.0) mmHg ABG pO2 73.2 L (75.0-100.0) mmHg ABG HCO3 25.7 (22.0-26.0) mmol/L ABG Total CO2 22.7 (21.0-25.0) mmol/L ABG O2 Saturation 95.1 (95.0-98.0) % ABG O2 Content 17.7 (15.0-23.0) %vol ABG Base Excess 1.4 mm/L ABG Hemoglobin 13.5 (12.0-16.0) g/dL ABG Oxyhemoglobin 93.0 % ABG Carboxyhemoglobin 1.3 (0.0-1.6) % ABG Methemoglobin 0.9 % Ramy Test Passed O2 Delivery Device Non rebr mask Oxygen Flow Rate 15.0 L Sodium (140-148) mmol/L Potassium (3.6-5.2) mmol/L Chloride (100-108) mmol/L Carbon Dioxide (21-32) mmol/L Anion Gap (5.0-14.0) mmol/L BUN (7-18) mg/dL Creatinine (0.6-1.0) mg/dL Est Cr Clr Drug Dosing mL/min Estimated GFR (MDRD) (>60) Glucose (74-106) mg/dL POC Glucose (74-106) mg/dL Lactic Acid 1.7 (0.4-2.0) mmol/L Calcium (8.5-10.1) mg/dL Troponin I < 0.017 (0.000-0.056) ng/mL C-Reactive Protein (0.0-0.3) mg/dL 09/10/21 09/10/21 09/10/21 Range/Units 11:20 16:46 20:24 WBC (4.5-11.0) K/uL RBC (3.30-5.50) M/uL Hgb (12.0-15.0) g/dL Hct (36.0-48.0) % MCV (80-98) fL MCH (27-31) pg MCHC (32-36) % Plt Count (150-400) K/uL Neut % (Auto) (36-66) % Lymph % (Auto) (24-44) % Rowan % (Auto) (2-6) % Eos % (Auto) (2-4) % Baso % (Auto) (0-1) % Puncture Site ABG pH (7.350-7.450) ABG pCO2 (35.0-42.0) mmHg ABG pO2 (75.0-100.0) mmHg ABG HCO3 (22.0-26.0) mmol/L ABG Total CO2 (21.0-25.0) mmol/L ABG O2 Saturation (95.0-98.0) % ABG O2 Content (15.0-23.0) %vol ABG Base Excess mm/L ABG Hemoglobin (12.0-16.0) g/dL ABG Oxyhemoglobin % ABG Carboxyhemoglobin (0.0-1.6) % ABG Methemoglobin % Ramy Test O2 Delivery Device Oxygen Flow Rate L Sodium (140-148) mmol/L Potassium (3.6-5.2) mmol/L Chloride (100-108) mmol/L Carbon Dioxide (21-32) mmol/L Anion Gap (5.0-14.0) mmol/L BUN (7-18) mg/dL Creatinine (0.6-1.0) mg/dL Est Cr Clr Drug Dosing mL/min Estimated GFR (MDRD) (>60) Glucose (74-106) mg/dL POC Glucose 179 H 163 H 115 H (74-106) mg/dL Lactic Acid (0.4-2.0) mmol/L Calcium (8.5-10.1) mg/dL Troponin I (0.000-0.056) ng/mL C-Reactive Protein (0.0-0.3) mg/dL 09/11/21 09/11/21 09/11/21 Range/Units 07:54 08:00 08:00 WBC 16.0 H (4.5-11.0) K/uL RBC 4.25 (3.30-5.50) M/uL Hgb 13.8 (12.0-15.0) g/dL Hct 41.3 (36.0-48.0) % MCV 97 (80-98) fL MCH 33 H (27-31) pg MCHC 33 (32-36) % Plt Count 367 (150-400) K/uL Neut % (Auto) 88.4 H (36-66) % Lymph % (Auto) 7.8 L (24-44) % Rowan % (Auto) 3.2 (2-6) % Eos % (Auto) 0.1 L (2-4) % Baso % (Auto) 0.5 (0-1) % Puncture Site ABG pH (7.350-7.450) ABG pCO2 (35.0-42.0) mmHg ABG pO2 (75.0-100.0) mmHg ABG HCO3 (22.0-26.0) mmol/L ABG Total CO2 (21.0-25.0) mmol/L ABG O2 Saturation (95.0-98.0) % ABG O2 Content (15.0-23.0) %vol ABG Base Excess mm/L ABG Hemoglobin (12.0-16.0) g/dL ABG Oxyhemoglobin % ABG Carboxyhemoglobin (0.0-1.6) % ABG Methemoglobin % Ramy Test O2 Delivery Device Oxygen Flow Rate L Sodium 141 (140-148) mmol/L Potassium 4.2 (3.6-5.2) mmol/L Chloride 102 (100-108) mmol/L Carbon Dioxide 29 (21-32) mmol/L Anion Gap 10.4 (5.0-14.0) mmol/L BUN 19 H (7-18) mg/dL Creatinine 0.7 (0.6-1.0) mg/dL Est Cr Clr Drug Dosing 93.25 mL/min Estimated GFR (MDRD) > 60 (>60) Glucose 176 H (74-106) mg/dL POC Glucose 171 H (74-106) mg/dL Lactic Acid (0.4-2.0) mmol/L Calcium 8.8 (8.5-10.1) mg/dL Troponin I (0.000-0.056) ng/mL C-Reactive Protein 1.61 H (0.0-0.3) mg/dL Result Diagrams: 09/11/21 08:00 09/11/21 08:00 Diego Results Last 24 hrs: Microbiology 09/07/21 09:15 Aerobic Blood Culture - Preliminary Blood - Arm, Left NO GROWTH AFTER 3 DAYS Anaerobic Blood Culture - Preliminary NO GROWTH AFTER 3 DAYS 09/07/21 09:05 Aerobic Blood Culture - Preliminary Blood - Arm, Right NO GROWTH AFTER 3 DAYS Anaerobic Blood Culture - Preliminary NO GROWTH AFTER 3 DAYS Sepsis Event Note - Evaluation Sepsis Screening Result: Sepsis Risk - Focused Exam Vital Signs: Vital Signs Temp Temp Pulse Resp BP BP Pulse Ox 09/11/21 08:06 148/100 H 09/11/21 08:00 36.6 C 16 148/100 H 92 L 09/11/21 06:00 88 15 148/95 H 91 L 09/11/21 04:00 35.6 C L 88 15 124/84 91 L 09/11/21 02:00 96 16 134/79 91 L 09/11/21 00:00 94 22 H 137/88 91 L 09/10/21 22:00 105 H 20 131/78 92 L 09/10/21 21:00 95 20 130/84 94 L - Problem List Review Problem List Initiated/Reviewed/Updated: Yes - My Orders Last 24 Hours: My Active Orders 09/10/21 08:19 Transfer Patient (Change bed) [ADT] Routine 09/10/21 08:21 Cardiac Monitoring [RC] Q6H 09/10/21 08:30 Meropenem [Merrem] 1 gm Sodium Chloride 0.9% [Normal Saline] 100 ml IV Q8H 09/10/21 09:00 Furosemide [Lasix] 40 mg IVPUSH DAILY Vancomycin 1.75 gm Sodium Chloride 0.9% [Normal Saline] 250 ml IV Q12H 09/11/21 08:44 Ang Chest [CT] Routine 09/12/21 05:00 BASIC METABOLIC PANEL,BMP [CHEM] Timed CBC W/O DIFF,HEMOGRAM [HEME] Timed (1) - Plan Plan:: ASSESSMENT AND PLAN - LEFT LUNG PNEUMONIA-complicated by acute respiratory failure with hypoxia. Bacterial versus potentially viral versus inflammatory. Cultures pending but negative so far. Volume status seems little better today. Not dramatically improved so we are going to get a CT scan today. CRP has improved since admission. -Continue IV steroids -Dose of furosemide this morning and reassess this afternoon -Continue levofloxacin, meropenem and vancomycin -Supplement oxygen, wean as able -Follow-up cultures -CT of the chest ACUTE HYPOXIC RESPIRATORY FAILURE-secondary to current pneumonia. -Supplemental oxygen as needed -Albuterol nebs as needed TYPE 2 DIABETES MELLITUS-sugars acceptable. -Continue outpatient medications -4 times daily glucometers -Low-dose sliding scale Humalog SCHIZOPHRENIA -Continue outpatient medications MAINTENANCE ISSUES -DVT prophylaxis; Lovenox 40 mg subcu daily -GI prophylaxis; not indicated -Welch catheter; not indicated -Nutrition; consistent carbohydrate diet DISPOSITION-anticipate discharge to home after the hospital stay. Helio Lima MD
[2021-09-11] MEDS ORDERED: TRULICITY 0.75MG SUBCUT SCH (09:00)
[2021-09-11] MEDS ORDERED: Sodium Chloride 0.9% 10 ML Syringe FLUSH ONE (09:46)
[2021-09-11] MEDS ORDERED: Iopamidol 755 Mg/ML 100 ML Bottle IV SCH (10:00)
[2021-09-11] MEDS ORDERED: Sodium Chloride 0.9% 100 ML IV SCH (10:00)
[2021-09-11] MEDS: Furosemide 40 MG/4 ML VIAL IVPUSH SCH (10:34)
[2021-09-11] MEDS: Ibuprofen 600 MG Tab PO PRN (10:36)
[2021-09-11] MEDS: Levofloxacin/Dextrose 5%-Water 750 MG in Premix Bag 1 BAG IV SCH (12:37)
[2021-09-11] MEDS: Enoxaparin 40 MG/0.4 ML Syringe SUBCUT SCH (14:09)
--- NOTE | 2021-09-11 15:21 | CT ---
Chest wo Cont CLINICAL HISTORY: Hypoxia and chest pain TECHNIQUE: Transverse scans were obtained from the thoracic inlet to the lung bases without contrast. Auto dosage reduction in intervertebral reconstruction techniques were employed COMPARISONS: Chest x-ray 09/08/2021 FINDINGS: There is some subtle segmental consolidation in the right upper lobe extending from the hilum to the pleura. There is also areas of consolidation in the superior segments of both lower lobes extending into the posterior basal segments bilaterally, greater on the right there is some diffuse groundglass opacification in the left upper lobe with patchy areas of groundglass opacification in both lower lobes. There are no effusions. No mediastinal mass or suspicious lymphadenopathy is seen. The spleen is borderline enlarged IMPRESSION: Moderate-sized areas of consolidation in both lungs diffusely graph scattered groundglass opacifications. This felt to represent a combination of pneumonia is and pneumonitis.
[2021-09-11] MEDS ORDERED: Furosemide 40 MG/4 ML VIAL IVPUSH ONE (16:30)
[2021-09-11] MEDS: CLOZAPINE 200 MG PO SCH (20:35)
[2021-09-11] MEDS: rOPINIRole 1 MG Tab PO SCH (20:39)
[2021-09-12] MEDS: methylPREDNISolone Sodium Succinate 40 MG/1 ML SDV IVPUSH SCH ×3 (04:06→19:53)
[2021-09-12] MEDS: Albuterol 0.083% 2.5 MG/3 ML Neb Soln NEB SCH ×4 (07:06→20:03)
[2021-09-12] MEDS: Meropenem 1 GM in Sodium Chloride 0.9% 100 ML IV SCH ×3 (08:17→23:43)
--- NOTE | 2021-09-12 09:02 | PCM.PN ---
- General Info Date of Service: 09/12/21 Subjective Update: There were no acute events overnight. Patient reports that she feels better today and feels less short of breath. She is down to 6 L of supplemental oxygen. She does continue to have what she describes as a burning in her lungs. She does not think it is changed much over the last few days. Appetite has been good. Strength seems to be a little better. No fevers. Functional Status: Reports: Pain Controlled, Tolerating Diet - Review of Systems General: Reports: Weakness Pulmonary: Reports: Shortness of Breath - Patient Data Vitals - Most Recent: Last Vital Signs Temp 36.2 C 09/12/21 08:00 Pulse 91 09/12/21 08:00 Resp 17 09/12/21 08:00 BP 138/93 H 09/12/21 08:00 Pulse Ox 94 L 09/12/21 08:00 Weight - Most Recent: 117.48 kg I&O - Last 24 Hours: Intake & Output 09/11/21 09/12/21 09/12/21 22:59 06:59 14:59 Intake Total 250 250 350 Output Total 2275 800 Balance -2025 -550 350 Lab Results Last 24 Hours: Laboratory Results - last 24 hr 09/11/21 09/11/21 09/11/21 Range/Units 11:44 16:54 21:02 WBC (4.5-11.0) K/uL RBC (3.30-5.50) M/uL Hgb (12.0-15.0) g/dL Hct (36.0-48.0) % MCV (80-98) fL MCH (27-31) pg MCHC (32-36) % Plt Count (150-400) K/uL Sodium (140-148) mmol/L Potassium (3.6-5.2) mmol/L Chloride (100-108) mmol/L Carbon Dioxide (21-32) mmol/L Anion Gap (5.0-14.0) mmol/L BUN (7-18) mg/dL Creatinine (0.6-1.0) mg/dL Est Cr Clr Drug Dosing mL/min Estimated GFR (MDRD) (>60) Glucose (74-106) mg/dL POC Glucose 213 H 199 H 159 H (74-106) mg/dL Calcium (8.5-10.1) mg/dL 11/05/21 11/05/21 11/05/21 Range/Units 05:50 05:50 07:54 WBC 14.5 H (4.5-11.0) K/uL RBC 4.19 (3.30-5.50) M/uL Hgb 13.3 (12.0-15.0) g/dL Hct 40.5 (36.0-48.0) % MCV 97 (80-98) fL MCH 32 H (27-31) pg MCHC 33 (32-36) % Plt Count 354 (150-400) K/uL Sodium 140 (140-148) mmol/L Potassium 4.2 (3.6-5.2) mmol/L Chloride 100 (100-108) mmol/L Carbon Dioxide 31 (21-32) mmol/L Anion Gap 9.1 (5.0-14.0) mmol/L BUN 17 (7-18) mg/dL Creatinine 0.7 (0.6-1.0) mg/dL Est Cr Clr Drug Dosing 93.25 mL/min Estimated GFR (MDRD) > 60 (>60) Glucose 160 H (74-106) mg/dL POC Glucose 170 H (74-106) mg/dL Calcium 9.1 (8.5-10.1) mg/dL Diego Results Last 24 Hours: Microbiology 09/07/21 09:15 Aerobic Blood Culture - Preliminary Blood - Arm, Left NO GROWTH AFTER 4 DAYS Anaerobic Blood Culture - Preliminary NO GROWTH AFTER 4 DAYS 09/07/21 09:05 Aerobic Blood Culture - Preliminary Blood - Arm, Right NO GROWTH AFTER 4 DAYS Anaerobic Blood Culture - Preliminary NO GROWTH AFTER 4 DAYS Med Orders - Current: Current Medications Acetaminophen (Acetaminophen 325 Mg Tab) 650 mg PO Q4H PRN PRN Reason: Pain (Mild 1-3)/fever Last Admin: 09/10/21 15:30 Dose: 650 mg Documented by: Albuterol (Albuterol 0.083% 2.5 Mg/3 Ml Neb Soln) 2.5 mg NEB Q4H PRN PRN Reason: Shortness Of Breath/wheezing Last Admin: 09/08/21 03:52 Dose: 2.5 mg Documented by: Albuterol (Albuterol 0.083% 2.5 Mg/3 Ml Neb Soln) 2.5 mg NEB QIDRT [facility] Last Admin: 09/12/21 07:06 Dose: 2.5 mg Documented by: Alprazolam (Alprazolam 0.5 Mg Tab) 1 mg PO TID [facility] Last Admin: 09/11/21 20:39 Dose: 1 mg Documented by: Dextrose (Glucose Gel 15 Gm In 37.5 Gm Tube) 15 gm PO ONETIME PRN PRN Reason: Hypoglycemia Dextrose/Water (50% Dextrose In Water 50 Ml Syringe) 50 ml IV ONETIME PRN PRN Reason: Hypoglycemia Enoxaparin Sodium (Enoxaparin 40 Mg/0.4 Ml Syringe) 40 mg SUBCUT Q24H [facility] Last Admin: 09/11/21 14:09 Dose: 40 mg Documented by: Estradiol (Estradiol 0.5 Mg Tab) 1.5 mg PO DAILY@0800 [facility] Last Admin: 09/11/21 08:01 Dose: 1.5 mg Documented by: Furosemide (Furosemide 40 Mg/4 Ml Vial) 40 mg IVPUSH DAILY [facility] Last Admin: 09/11/21 10:34 Dose: 40 mg Documented by: Gabapentin (Gabapentin 300 Mg Cap) 600 mg PO TID [facility] Last Admin: 09/11/21 20:37 Dose: 600 mg Documented by: Levofloxacin/Dextrose 750 mg/ (Premix) 150 mls @ 100 mls/hr IV Q24H [facility] Last Admin: 09/11/21 12:37 Dose: 100 mls/hr Documented by: Meropenem 1 gm/ Sodium (Chloride) 100 mls @ 200 mls/hr IV Q8H [facility] Last Admin: 09/12/21 08:17 Dose: 200 mls/hr Documented by: Vancomycin HCl 1.75 gm/ Sodium (Chloride) 250 mls @ 150 mls/hr IV Q12H [facility] Last Admin: 09/12/21 08:57 Dose: 150 mls/hr Documented by: Ibuprofen (Ibuprofen 600 Mg Tab) 600 mg PO Q6H PRN PRN Reason: Pain Last Admin: 09/11/21 10:36 Dose: 600 mg Documented by: Insulin Human Lispro (Insulin Lispro 100 Unit/Ml 3 Ml Kwikpen) 0 unit SUBCUT QIDACANDBED [facility]; Protocol Last Admin: 09/11/21 21:04 Dose: 1 unit Documented by: Lisinopril (Lisinopril 2.5 Mg Tab) 2.5 mg PO BID [facility] Last Admin: 09/11/21 20:38 Dose: 2.5 mg Documented by: Metformin HCl (Metformin 500 Mg Tab) 500 mg PO BIDMEALS [facility] Last Admin: 09/11/21 16:11 Dose: 500 mg Documented by: Methylprednisolone Sodium Succinate (Methylprednisolone Sodium Succinate 40 Mg/1 Ml Sdv) 40 mg IVPUSH Q8H [facility] Last Admin: 09/12/21 04:06 Dose: 40 mg Documented by: Morphine Sulfate (Morphine 2 Mg/Ml Syringe) 2 mg IVPUSH Q2H PRN PRN Reason: Pain (severe 7-10) Last Admin: 09/11/21 01:28 Dose: 2 mg Documented by: Olanzapine (Olanzapine 5 Mg Tab) 15 mg PO BID@799,1999 [facility] Last Admin: 09/11/21 20:36 Dose: 15 mg Documented by: Ondansetron HCl (Ondansetron 4 Mg/2 Ml Sdv) 4 mg IV Q4H PRN PRN Reason: Nausea/Vomiting Last Admin: 09/08/21 03:57 Dose: 4 mg Documented by: Oxycodone HCl (Oxycodone 5 Mg Tab) 5 mg PO Q4H PRN PRN Reason: Pain (moderate 4-6) Last Admin: 09/11/21 20:45 Dose: 5 mg Documented by: Pantoprazole Sodium (Pantoprazole 40 Mg Tab.Cr) 40 mg PO ACBREAKFAST [facility] Last Admin: 09/11/21 08:01 Dose: 40 mg Documented by: Trulicity 0.75mg 0 each SUBCUT Th@0900 [facility] Last Admin: 09/11/21 08:07 Dose: 1 each Documented by: Clozapine 200mg Tab ((Ptom)) 0 each PO BEDTIME@1999 [facility] Last Admin: 09/11/21 20:35 Dose: 1 each Documented by: Polyethylene Glycol (Polyethylene Glycol 3350 Powder 17 Gm Packet) 17 gm PO DAILY PRN PRN Reason: Constipation Polyethylene Glycol (Polyethylene Glycol 3350 Powder 17 Gm Packet) 17 gm PO DAILY [facility] Last Admin: 09/11/21 08:04 Dose: 17 gm Documented by: Ropinirole HCl (Ropinirole 1 Mg Tab) 1 mg PO BEDTIME [facility] Last Admin: 09/11/21 20:39 Dose: 1 mg Documented by: Sodium Chloride (Sodium Chloride 0.9% 10 Ml Syringe) 10 ml FLUSH ASDIRECTED PRN PRN Reason: Keep Vein Open Last Admin: 09/11/21 14:10 Dose: 10 ml Documented by: Tizanidine HCl (Tizanidine 2 Mg Tab) 2 mg PO TID@0800,1400,2000 [facility] Last Admin: 09/11/21 20:40 Dose: 2 mg Documented by: Discontinued Medications Acetaminophen (Acetaminophen 500 Mg Tab) 1,000 mg PO Q6H PRN PRN Reason: Pain Last Admin: 09/07/21 09:24 Dose: 1,000 mg Documented by: Doxycycline Hyclate (Doxycycline 100 Mg Cap) 100 mg PO ONETIME ONE Stop: 09/07/21 09:01 Last Admin: 09/07/21 09:23 Dose: 100 mg Documented by: Furosemide (Furosemide 20 Mg/2 Ml Vial) 20 mg IVPUSH ONETIME ONE Stop: 09/08/21 11:03 Last Admin: 09/08/21 11:22 Dose: 20 mg Documented by: Furosemide (Furosemide 20 Mg/2 Ml Vial) 20 mg IVPUSH ONETIME ONE Stop: 09/09/21 09:01 Last Admin: 09/09/21 10:40 Dose: 20 mg Documented by: Furosemide (Furosemide 40 Mg/4 Ml Vial) 40 mg IVPUSH ONETIME ONE Stop: 09/09/21 16:01 Last Admin: 09/09/21 16:37 Dose: 40 mg Documented by: Furosemide (Furosemide 40 Mg/4 Ml Vial) 40 mg IVPUSH ONETIME ONE Stop: 09/10/21 17:05 Last Admin: 09/10/21 17:27 Dose: 40 mg Documented by: Furosemide (Furosemide 40 Mg/4 Ml Vial) 40 mg IVPUSH ONETIME ONE Stop: 09/11/21 16:31 Last Admin: 09/11/21 16:12 Dose: 40 mg Documented by: Ceftriaxone Sodium 1 gm/ (Sodium Chloride) 50 mls @ 100 mls/hr IV ONETIME ONE Stop: 09/07/21 09:59 Last Admin: 09/07/21 09:23 Dose: 100 mls/hr Documented by: Sodium Chloride (Normal Saline) 1,000 mls @ 125 mls/hr IV ASDIRECTED [facility] Last Admin: 09/08/21 04:03 Dose: 125 mls/hr Documented by: Doxycycline Hyclate 100 mg/ (Sodium Chloride) 100 mls @ 100 mls/hr IV Q12H [facility] Last Admin: 09/09/21 08:06 Dose: 100 mls/hr Documented by: Ceftriaxone Sodium 1 gm/ (Sodium Chloride) 50 mls @ 100 mls/hr IV Q24H [facility] Last Admin: 09/09/21 11:45 Dose: 100 mls/hr Documented by: Meropenem 1 gm/ Sodium (Chloride) 100 mls @ 200 mls/hr IV ONETIME ONE Stop: 09/08/21 04:39 Last Admin: 09/08/21 04:34 Dose: 200 mls/hr Documented by: Acetaminophen 1,000 mg/ Premix 100 mls @ 400 mls/hr IV NOW ONE Stop: 09/08/21 04:25 Last Admin: 09/08/21 04:19 Dose: 400 mls/hr Documented by: Sodium Chloride (Normal Saline) 100 mls @ 3.5 mls/sec IV ASDIRECTED [facility] Ibuprofen (Ibuprofen 400 Mg Tab) 400 mg PO Q6H PRN PRN Reason: Pain Last Admin: 09/08/21 08:50 Dose: 400 mg Documented by: Ibuprofen (Ibuprofen 400 Mg Tab) 600 mg PO Q6H PRN PRN Reason: Pain Last Admin: 09/08/21 14:57 Dose: 600 mg Documented by: Iopamidol (Iopamidol 755 Mg/Ml 100 Ml Bottle) 100 ml IV . DIRECTED [facility] Stop: 09/11/21 10:30 Methylprednisolone Sodium Succinate (Methylprednisolone Sodium Succinate 125 Mg/2 Ml Sdv) 125 mg IVPUSH ONETIME ONE Stop: 09/08/21 04:33 Last Admin: 09/08/21 04:38 Dose: 125 mg Documented by: Methylprednisolone Sodium Succinate (Methylprednisolone Sodium Succinate 125 Mg/2 Ml Sdv) 125 mg IVPUSH ONETIME ONE Stop: 09/08/21 11:03 Last Admin: 09/08/21 11:22 Dose: 125 mg Documented by: Morphine Sulfate (Morphine 2 Mg/Ml Syringe) 2 mg IVPUSH STAT STA Stop: 09/08/21 04:10 Last Admin: 09/08/21 04:29 Dose: 2 mg Documented by: Morphine Sulfate (Morphine 2 Mg/Ml Syringe) 2 mg IVPUSH ONETIME ONE Stop: 09/08/21 11:03 Last Admin: 09/08/21 11:23 Dose: 2 mg Documented by: Potassium Chloride (Potassium Chloride 20 Meq Tab.Er) 40 meq PO ONETIME ONE Stop: 09/08/21 10:51 Last Admin: 09/08/21 11:23 Dose: 40 meq Documented by: Sodium Chloride (Sodium Chloride 0.9% 10 Ml Syringe) 10 ml FLUSH ASDIRECTED PRN PRN Reason: Keep Vein Open Last Admin: 09/07/21 07:58 Dose: 10 ml Documented by: Sodium Chloride (Sodium Chloride 0.9% 10 Ml Syringe) 10 ml FLUSH ONETIME ONE Stop: 09/11/21 09:47 Last Admin: 09/11/21 14:10 Dose: Not Given Documented by: - Exam Quality Assessment: Supplemental Oxygen General: Alert, Oriented, Cooperative, No Acute Distress Lungs: Normal Respiratory Effort, Decreased Breath Sounds (both bases). No: Crackles, Wheezing Cardiovascular: Regular Rate, Regular Rhythm GI/Abdominal Exam: Soft, No Distention Extremities: Pedal Edema (trace bilateral ankle edema ). No: Increased Warmth Skin: Warm, Dry Psy/Mental Status: Alert, Normal Affect - Patient Data Lab Results Last 24 hrs: Laboratory Results - last 24 hr 09/11/21 09/11/21 09/11/21 Range/Units 11:44 16:54 21:02 WBC (4.5-11.0) K/uL RBC (3.30-5.50) M/uL Hgb (12.0-15.0) g/dL Hct (36.0-48.0) % MCV (80-98) fL MCH (27-31) pg MCHC (32-36) % Plt Count (150-400) K/uL Sodium (140-148) mmol/L Potassium (3.6-5.2) mmol/L Chloride (100-108) mmol/L Carbon Dioxide (21-32) mmol/L Anion Gap (5.0-14.0) mmol/L BUN (7-18) mg/dL Creatinine (0.6-1.0) mg/dL Est Cr Clr Drug Dosing mL/min Estimated GFR (MDRD) (>60) Glucose (74-106) mg/dL POC Glucose 213 H 199 H 159 H (74-106) mg/dL Calcium (8.5-10.1) mg/dL 09/12/21 09/12/21 09/12/21 Range/Units 05:50 05:50 07:54 WBC 14.5 H (4.5-11.0) K/uL RBC 4.19 (3.30-5.50) M/uL Hgb 13.3 (12.0-15.0) g/dL Hct 40.5 (36.0-48.0) % MCV 97 (80-98) fL MCH 32 H (27-31) pg MCHC 33 (32-36) % Plt Count 354 (150-400) K/uL Sodium 140 (140-148) mmol/L Potassium 4.2 (3.6-5.2) mmol/L Chloride 100 (100-108) mmol/L Carbon Dioxide 31 (21-32) mmol/L Anion Gap 9.1 (5.0-14.0) mmol/L BUN 17 (7-18) mg/dL Creatinine 0.7 (0.6-1.0) mg/dL Est Cr Clr Drug Dosing 93.25 mL/min Estimated GFR (MDRD) > 60 (>60) Glucose 160 H (74-106) mg/dL POC Glucose 170 H (74-106) mg/dL Calcium 9.1 (8.5-10.1) mg/dL Result Diagrams: 09/12/21 05:50 09/12/21 05:50 Diego Results Last 24 hrs: Microbiology 09/07/21 09:15 Aerobic Blood Culture - Preliminary Blood - Arm, Left NO GROWTH AFTER 4 DAYS Anaerobic Blood Culture - Preliminary NO GROWTH AFTER 4 DAYS 09/07/21 09:05 Aerobic Blood Culture - Preliminary Blood - Arm, Right NO GROWTH AFTER 4 DAYS Anaerobic Blood Culture - Preliminary NO GROWTH AFTER 4 DAYS Sepsis Event Note - Evaluation Sepsis Screening Result: No Definite Risk - Focused Exam Vital Signs: Vital Signs Temp Pulse Resp BP Pulse Ox 09/12/21 08:00 36.2 C 91 17 138/93 H 94 L 09/12/21 06:00 12 141/94 H 94 L 09/12/21 04:00 36.4 C 13 132/85 93 L 09/12/21 02:00 36.4 C 18 125/87 92 L 09/12/21 00:00 36.5 C 13 130/84 91 L 09/11/21 22:00 96 18 117/73 93 L - Problem List Review Problem List Initiated/Reviewed/Updated: Yes - My Orders Last 24 Hours: My Active Orders 09/13/21 05:00 BASIC METABOLIC PANEL,BMP [CHEM] Timed CBC W/O DIFF,HEMOGRAM [HEME] Timed (1) CRP [C-REACTIVE PROTEIN] [CHEM] Timed - Plan Plan:: ASSESSMENT AND PLAN - LEFT LUNG PNEUMONIA-complicated by acute respiratory failure with hypoxia. Cultures negative. Doing better with broad-spectrum antibiotics and diuresis. CT of the chest showed bilateral infiltrates with combination of infiltrate and mild pneumonitis. -Continue IV steroids today, transition to prednisone -Dose of furosemide this morning and reassess this afternoon -Continue levofloxacin, meropenem and vancomycin, plan to de-escalate tomorrow -Supplement oxygen, wean as able ACUTE HYPOXIC RESPIRATORY FAILURE-secondary to current pneumonia. -Supplemental oxygen as needed -Albuterol nebs as needed TYPE 2 DIABETES MELLITUS-sugars acceptable. -Continue outpatient medications -4 times daily glucometers -Low-dose sliding scale Humalog SCHIZOPHRENIA -Continue outpatient medications MAINTENANCE ISSUES -DVT prophylaxis; Lovenox 40 mg subcu daily -GI prophylaxis; not indicated -Welch catheter; not indicated -Nutrition; consistent carbohydrate diet DISPOSITION-anticipate discharge to home after the hospital stay. She is stable for transfer out of the intensive care unit today. Helio Lima MD
[2021-09-12] MEDS: Ibuprofen 600 MG Tab PO PRN ×3 (09:03→21:49)
[2021-09-12] MEDS: oxyCODONE 5 MG Tab PO PRN ×3 (09:03→19:49)
[2021-09-12] MEDS: Insulin Lispro 100 Unit/ML 3 ML KwikPen SUBCUT SCH ×4 (09:05→21:30)
[2021-09-12] MEDS: Pantoprazole 40 MG Tab.CR PO SCH (09:07)
[2021-09-12] MEDS: metFORMIN 500 MG Tab PO SCH ×2 (09:07→17:36)
[2021-09-12] MEDS: Estradiol 0.5 MG Tab PO SCH (09:07)
[2021-09-12] MEDS: tiZANidine 2 MG Tab PO SCH ×3 (09:08→19:54)
[2021-09-12] MEDS: OLANZapine 5 MG Tab PO SCH ×2 (09:08→19:54)
[2021-09-12] MEDS: Gabapentin 300 MG Cap PO SCH ×3 (09:09→20:04)
[2021-09-12] MEDS: Polyethylene Glycol 3350 Powder 17 GM Packet PO SCH (09:09)
[2021-09-12] MEDS: Lisinopril 2.5 MG Tab PO SCH ×2 (09:10→20:04)
[2021-09-12] MEDS: ALPRAZolam 0.5 MG Tab PO SCH ×3 (09:22→20:04)
[2021-09-12] MEDS: Furosemide 40 MG/4 ML VIAL IVPUSH SCH (09:23)
[2021-09-12] MEDS: Levofloxacin/Dextrose 5%-Water 750 MG in Premix Bag 1 BAG IV SCH (12:42)
[2021-09-12] MEDS: Enoxaparin 40 MG/0.4 ML Syringe SUBCUT SCH (13:50)
[2021-09-12] MEDS: CLOZAPINE 200 MG PO SCH (19:52)
[2021-09-12] MEDS: rOPINIRole 1 MG Tab PO SCH (20:04)
[2021-09-13] MEDS: methylPREDNISolone Sodium Succinate 40 MG/1 ML SDV IVPUSH SCH (04:24)
[2021-09-13] MEDS: Albuterol 0.083% 2.5 MG/3 ML Neb Soln NEB SCH ×4 (07:03→20:28)
[2021-09-13] MEDS: Polyethylene Glycol 3350 Powder 17 GM Packet PO SCH (08:10)
[2021-09-13] MEDS: Pantoprazole 40 MG Tab.CR PO SCH (08:10)
[2021-09-13] MEDS: OLANZapine 5 MG Tab PO SCH ×2 (08:10→20:20)
[2021-09-13] MEDS: metFORMIN 500 MG Tab PO SCH ×2 (08:10→16:59)
[2021-09-13] MEDS: Gabapentin 300 MG Cap PO SCH ×3 (08:10→20:21)
[2021-09-13] MEDS: ALPRAZolam 0.5 MG Tab PO SCH ×3 (08:11→20:28)
[2021-09-13] MEDS: Lisinopril 2.5 MG Tab PO SCH ×2 (08:11→20:22)
[2021-09-13] MEDS: tiZANidine 2 MG Tab PO SCH ×3 (08:11→20:20)
[2021-09-13] MEDS: Estradiol 0.5 MG Tab PO SCH (08:11)
[2021-09-13] MEDS: Furosemide 40 MG/4 ML VIAL IVPUSH SCH (08:12)
[2021-09-13] MEDS: Insulin Lispro 100 Unit/ML 3 ML KwikPen SUBCUT SCH ×4 (08:13→20:57)
[2021-09-13] MEDS: Meropenem 1 GM in Sodium Chloride 0.9% 100 ML IV SCH ×2 (08:13→16:54)
[2021-09-13] MEDS: oxyCODONE 5 MG Tab PO PRN ×2 (08:35→13:08)
[2021-09-13] MEDS: Ibuprofen 600 MG Tab PO PRN ×2 (09:51→16:53)
--- NOTE | 2021-09-13 10:55 | PCM.PN ---
- General Info Date of Service: 09/13/21 Subjective Update: No acute events overnight. She reports less shortness of breath today. Energy and appetite are improving. Slept well last night. CRP is improving. Burning chest pain is improving as well. No fevers. Functional Status: Reports: Pain Controlled, Tolerating Diet - Review of Systems General: Denies: Fever - Patient Data Vitals - Most Recent: Last Vital Signs Temp 36.1 C 09/13/21 10:00 Pulse 94 09/13/21 10:33 Resp 18 09/13/21 10:00 BP 105/71 09/13/21 10:00 Pulse Ox 93 L 09/13/21 10:00 Weight - Most Recent: 117.48 kg I&O - Last 24 Hours: Intake & Output 09/12/21 09/13/21 09/13/21 22:59 06:59 14:59 Intake Total 1405 300 Output Total 0730 560 6099 Balance 405 -600 -1800 Lab Results Last 24 Hours: Laboratory Results - last 24 hr 09/12/21 09/12/21 09/12/21 Range/Units 11:05 17:18 21:16 WBC (4.5-11.0) K/uL RBC (3.30-5.50) M/uL Hgb (12.0-15.0) g/dL Hct (36.0-48.0) % MCV (80-98) fL MCH (27-31) pg MCHC (32-36) % Plt Count (150-400) K/uL Sodium (140-148) mmol/L Potassium (3.6-5.2) mmol/L Chloride (100-108) mmol/L Carbon Dioxide (21-32) mmol/L Anion Gap (5.0-14.0) mmol/L BUN (7-18) mg/dL Creatinine (0.6-1.0) mg/dL Est Cr Clr Drug Dosing mL/min Estimated GFR (MDRD) (>60) Glucose (74-106) mg/dL POC Glucose 242 H 148 H 136 H (74-106) mg/dL Calcium (8.5-10.1) mg/dL C-Reactive Protein (0.0-0.3) mg/dL 09/13/21 09/13/21 09/13/21 Range/Units 04:15 04:15 07:34 WBC 18.5 H (4.5-11.0) K/uL RBC 4.36 (3.30-5.50) M/uL Hgb 13.9 (12.0-15.0) g/dL Hct 42.1 (36.0-48.0) % MCV 97 (80-98) fL MCH 32 H (27-31) pg MCHC 33 (32-36) % Plt Count 349 (150-400) K/uL Sodium 138 L (140-148) mmol/L Potassium 4.2 (3.6-5.2) mmol/L Chloride 100 (100-108) mmol/L Carbon Dioxide 29 (21-32) mmol/L Anion Gap 13.2 (5.0-14.0) mmol/L BUN 18 (7-18) mg/dL Creatinine 0.7 (0.6-1.0) mg/dL Est Cr Clr Drug Dosing 93.25 mL/min Estimated GFR (MDRD) > 60 (>60) Glucose 151 H (74-106) mg/dL POC Glucose 174 H (74-106) mg/dL Calcium 9.4 (8.5-10.1) mg/dL C-Reactive Protein 0.31 H (0.0-0.3) mg/dL Diego Results Last 24 Hours: Microbiology 09/07/21 09:15 Aerobic Blood Culture - Final Blood - Arm, Left NO GROWTH AFTER 5 DAYS Anaerobic Blood Culture - Final NO GROWTH AFTER 5 DAYS 09/07/21 09:05 Aerobic Blood Culture - Final Blood - Arm, Right NO GROWTH AFTER 5 DAYS Anaerobic Blood Culture - Final NO GROWTH AFTER 5 DAYS Med Orders - Current: Current Medications Acetaminophen (Acetaminophen 325 Mg Tab) 650 mg PO Q4H PRN PRN Reason: Pain (Mild 1-3)/fever Last Admin: 09/10/21 15:30 Dose: 650 mg Documented by: Albuterol (Albuterol 0.083% 2.5 Mg/3 Ml Neb Soln) 2.5 mg NEB Q4H PRN PRN Reason: Shortness Of Breath/wheezing Last Admin: 09/08/21 03:52 Dose: 2.5 mg Documented by: Albuterol (Albuterol 0.083% 2.5 Mg/3 Ml Neb Soln) 2.5 mg NEB QIDRT [place] Last Admin: 09/13/21 10:32 Dose: 2.5 mg Documented by: Alprazolam (Alprazolam 0.5 Mg Tab) 1 mg PO TID [facility] Last Admin: 09/13/21 08:11 Dose: 1 mg Documented by: Dextrose (Glucose Gel 15 Gm In 37.5 Gm Tube) 15 gm PO ONETIME PRN PRN Reason: Hypoglycemia Dextrose/Water (50% Dextrose In Water 50 Ml Syringe) 50 ml IV ONETIME PRN PRN Reason: Hypoglycemia Enoxaparin Sodium (Enoxaparin 40 Mg/0.4 Ml Syringe) 40 mg SUBCUT Q24H [facility] Last Admin: 09/12/21 13:50 Dose: 40 mg Documented by: Estradiol (Estradiol 0.5 Mg Tab) 1.5 mg PO DAILY@0800 [facility] Last Admin: 09/13/21 08:11 Dose: 1.5 mg Documented by: Furosemide (Furosemide 40 Mg/4 Ml Vial) 40 mg IVPUSH DAILY [facility] Last Admin: 09/13/21 08:12 Dose: 40 mg Documented by: Gabapentin (Gabapentin 300 Mg Cap) 600 mg PO TID [facility] Last Admin: 09/13/21 08:10 Dose: 600 mg Documented by: Levofloxacin/Dextrose 750 mg/ (Premix) 150 mls @ 100 mls/hr IV Q24H [facility] Last Admin: 09/12/21 12:42 Dose: 100 mls/hr Documented by: Meropenem 1 gm/ Sodium (Chloride) 100 mls @ 200 mls/hr IV Q8H [facility] Last Admin: 09/13/21 08:13 Dose: 200 mls/hr Documented by: Ibuprofen (Ibuprofen 600 Mg Tab) 600 mg PO Q6H PRN PRN Reason: Pain Last Admin: 09/13/21 09:51 Dose: 600 mg Documented by: Insulin Human Lispro (Insulin Lispro 100 Unit/Ml 3 Ml Kwikpen) 0 unit SUBCUT QIDACANDBED [facility]; Protocol Last Admin: 09/13/21 08:13 Dose: 1 unit Documented by: Lisinopril (Lisinopril 2.5 Mg Tab) 2.5 mg PO BID [facility] Last Admin: 09/13/21 08:11 Dose: 2.5 mg Documented by: Metformin HCl (Metformin 500 Mg Tab) 500 mg PO BIDMEALS [facility] Last Admin: 09/13/21 08:10 Dose: 500 mg Documented by: Morphine Sulfate (Morphine 2 Mg/Ml Syringe) 2 mg IVPUSH Q2H PRN PRN Reason: Pain (severe 7-10) Last Admin: 09/11/21 01:28 Dose: 2 mg Documented by: Olanzapine (Olanzapine 5 Mg Tab) 15 mg PO BID@799,1999 [facility] Last Admin: 09/13/21 08:10 Dose: 15 mg Documented by: Ondansetron HCl (Ondansetron 4 Mg/2 Ml Sdv) 4 mg IV Q4H PRN PRN Reason: Nausea/Vomiting Last Admin: 09/08/21 03:57 Dose: 4 mg Documented by: Oxycodone HCl (Oxycodone 5 Mg Tab) 5 mg PO Q4H PRN PRN Reason: Pain (moderate 4-6) Last Admin: 09/13/21 08:35 Dose: 5 mg Documented by: Pantoprazole Sodium (Pantoprazole 40 Mg Tab.Cr) 40 mg PO ACBREAKFAST [facility] Last Admin: 09/13/21 08:10 Dose: 40 mg Documented by: Trulicity 0.75mg 0 each SUBCUT Th@09 [facility] Last Admin: 09/11/21 08:07 Dose: 1 each Documented by: Clozapine 200mg Tab ((Ptom)) 0 each PO BEDTIME@1999 [facility] Last Admin: 09/12/21 19:52 Dose: 1 each Documented by: Polyethylene Glycol (Polyethylene Glycol 3350 Powder 17 Gm Packet) 17 gm PO DAILY PRN PRN Reason: Constipation Polyethylene Glycol (Polyethylene Glycol 3350 Powder 17 Gm Packet) 17 gm PO DAILY [facility] Last Admin: 09/13/21 08:10 Dose: 17 gm Documented by: Prednisone (Prednisone 20 Mg Tab) 20 mg PO ONETIME ONE Stop: 09/13/21 11:01 Prednisone (Prednisone 20 Mg Tab) 20 mg PO WITHBREAKFAST [facility] Ropinirole HCl (Ropinirole 1 Mg Tab) 1 mg PO BEDTIME [facility] Last Admin: 09/12/21 20:04 Dose: 1 mg Documented by: Sodium Chloride (Sodium Chloride 0.9% 10 Ml Syringe) 10 ml FLUSH ASDIRECTED PRN PRN Reason: Keep Vein Open Last Admin: 09/11/21 14:10 Dose: 10 ml Documented by: Tizanidine HCl (Tizanidine 2 Mg Tab) 2 mg PO TID@0800,1400,1999 [facility] Last Admin: 09/13/21 08:11 Dose: 2 mg Documented by: Discontinued Medications Acetaminophen (Acetaminophen 500 Mg Tab) 1,000 mg PO Q6H PRN PRN Reason: Pain Last Admin: 09/07/21 09:24 Dose: 1,000 mg Documented by: Doxycycline Hyclate (Doxycycline 100 Mg Cap) 100 mg PO ONETIME ONE Stop: 09/07/21 09:01 Last Admin: 09/07/21 09:23 Dose: 100 mg Documented by: Furosemide (Furosemide 20 Mg/2 Ml Vial) 20 mg IVPUSH ONETIME ONE Stop: 09/08/21 11:03 Last Admin: 09/08/21 11:22 Dose: 20 mg Documented by: Furosemide (Furosemide 20 Mg/2 Ml Vial) 20 mg IVPUSH ONETIME ONE Stop: 09/09/21 09:01 Last Admin: 09/09/21 10:40 Dose: 20 mg Documented by: Furosemide (Furosemide 40 Mg/4 Ml Vial) 40 mg IVPUSH ONETIME ONE Stop: 09/09/21 16:01 Last Admin: 09/09/21 16:37 Dose: 40 mg Documented by: Furosemide (Furosemide 40 Mg/4 Ml Vial) 40 mg IVPUSH ONETIME ONE Stop: 09/10/21 17:05 Last Admin: 09/10/21 17:27 Dose: 40 mg Documented by: Furosemide (Furosemide 40 Mg/4 Ml Vial) 40 mg IVPUSH ONETIME ONE Stop: 09/11/21 16:31 Last Admin: 09/11/21 16:12 Dose: 40 mg Documented by: Ceftriaxone Sodium 1 gm/ (Sodium Chloride) 50 mls @ 100 mls/hr IV ONETIME ONE Stop: 09/07/21 09:59 Last Admin: 09/07/21 09:23 Dose: 100 mls/hr Documented by: Sodium Chloride (Normal Saline) 1,000 mls @ 125 mls/hr IV ASDIRECTED [facility] Last Admin: 09/08/21 04:03 Dose: 125 mls/hr Documented by: Doxycycline Hyclate 100 mg/ (Sodium Chloride) 100 mls @ 100 mls/hr IV Q12H [facility] Last Admin: 09/09/21 08:06 Dose: 100 mls/hr Documented by: Ceftriaxone Sodium 1 gm/ (Sodium Chloride) 50 mls @ 100 mls/hr IV Q24H [facility] Last Admin: 09/09/21 11:45 Dose: 100 mls/hr Documented by: Meropenem 1 gm/ Sodium (Chloride) 100 mls @ 200 mls/hr IV ONETIME ONE Stop: 09/08/21 04:39 Last Admin: 09/08/21 04:34 Dose: 200 mls/hr Documented by: Acetaminophen 1,000 mg/ Premix 100 mls @ 400 mls/hr IV NOW ONE Stop: 09/08/21 04:25 Last Admin: 09/08/21 04:19 Dose: 400 mls/hr Documented by: Vancomycin HCl 1.75 gm/ Sodium (Chloride) 250 mls @ 150 mls/hr IV Q12H [facility] Last Admin: 09/12/21 20:03 Dose: 150 mls/hr Documented by: Sodium Chloride (Normal Saline) 100 mls @ 3.5 mls/sec IV ASDIRECTED [facility] Ibuprofen (Ibuprofen 400 Mg Tab) 400 mg PO Q6H PRN PRN Reason: Pain Last Admin: 09/08/21 08:50 Dose: 400 mg Documented by: Ibuprofen (Ibuprofen 400 Mg Tab) 600 mg PO Q6H PRN PRN Reason: Pain Last Admin: 09/08/21 14:57 Dose: 600 mg Documented by: Iopamidol (Iopamidol 755 Mg/Ml 100 Ml Bottle) 100 ml IV . DIRECTED [facility] Stop: 09/11/21 10:30 Methylprednisolone Sodium Succinate (Methylprednisolone Sodium Succinate 125 Mg/2 Ml Sdv) 125 mg IVPUSH ONETIME ONE Stop: 09/08/21 04:33 Last Admin: 09/08/21 04:38 Dose: 125 mg Documented by: Methylprednisolone Sodium Succinate (Methylprednisolone Sodium Succinate 125 Mg/2 Ml Sdv) 125 mg IVPUSH ONETIME ONE Stop: 09/08/21 11:03 Last Admin: 09/08/21 11:22 Dose: 125 mg Documented by: Methylprednisolone Sodium Succinate (Methylprednisolone Sodium Succinate 40 Mg/1 Ml Sdv) 40 mg IVPUSH Q8H [facility] Last Admin: 09/13/21 04:24 Dose: 40 mg Documented by: Morphine Sulfate (Morphine 2 Mg/Ml Syringe) 2 mg IVPUSH STAT STA Stop: 09/08/21 04:10 Last Admin: 09/08/21 04:29 Dose: 2 mg Documented by: Morphine Sulfate (Morphine 2 Mg/Ml Syringe) 2 mg IVPUSH ONETIME ONE Stop: 09/08/21 11:03 Last Admin: 09/08/21 11:23 Dose: 2 mg Documented by: Potassium Chloride (Potassium Chloride 20 Meq Tab.Er) 40 meq PO ONETIME ONE Stop: 09/08/21 10:51 Last Admin: 09/08/21 11:23 Dose: 40 meq Documented by: Sodium Chloride (Sodium Chloride 0.9% 10 Ml Syringe) 10 ml FLUSH ASDIRECTED PRN PRN Reason: Keep Vein Open Last Admin: 09/07/21 07:58 Dose: 10 ml Documented by: Sodium Chloride (Sodium Chloride 0.9% 10 Ml Syringe) 10 ml FLUSH ONETIME ONE Stop: 09/11/21 09:47 Last Admin: 09/11/21 14:10 Dose: Not Given Documented by: - Exam Quality Assessment: Supplemental Oxygen General: Alert, Oriented, Cooperative, No Acute Distress Neck: No JVD Lungs: Normal Respiratory Effort, Crackles (rare right lung base, few left lung base) Cardiovascular: Regular Rate, Regular Rhythm GI/Abdominal Exam: Soft, No Distention Extremities: No Pedal Edema. No: Increased Warmth Skin: Warm, Dry Psy/Mental Status: Alert, Normal Affect - Patient Data Lab Results Last 24 hrs: Laboratory Results - last 24 hr 09/12/21 09/12/21 09/12/21 Range/Units 11:05 17:18 21:16 WBC (4.5-11.0) K/uL RBC (3.30-5.50) M/uL Hgb (12.0-15.0) g/dL Hct (36.0-48.0) % MCV (80-98) fL MCH (27-31) pg MCHC (32-36) % Plt Count (150-400) K/uL Sodium (140-148) mmol/L Potassium (3.6-5.2) mmol/L Chloride (100-108) mmol/L Carbon Dioxide (21-32) mmol/L Anion Gap (5.0-14.0) mmol/L BUN (7-18) mg/dL Creatinine (0.6-1.0) mg/dL Est Cr Clr Drug Dosing mL/min Estimated GFR (MDRD) (>60) Glucose (74-106) mg/dL POC Glucose 242 H 148 H 136 H (74-106) mg/dL Calcium (8.5-10.1) mg/dL C-Reactive Protein (0.0-0.3) mg/dL 09/13/21 09/13/21 09/13/21 Range/Units 04:15 04:15 07:34 WBC 18.5 H (4.5-11.0) K/uL RBC 4.36 (3.30-5.50) M/uL Hgb 13.9 (12.0-15.0) g/dL Hct 42.1 (36.0-48.0) % MCV 97 (80-98) fL MCH 32 H (27-31) pg MCHC 33 (32-36) % Plt Count 349 (150-400) K/uL Sodium 138 L (140-148) mmol/L Potassium 4.2 (3.6-5.2) mmol/L Chloride 100 (100-108) mmol/L Carbon Dioxide 29 (21-32) mmol/L Anion Gap 13.2 (5.0-14.0) mmol/L BUN 18 (7-18) mg/dL Creatinine 0.7 (0.6-1.0) mg/dL Est Cr Clr Drug Dosing 93.25 mL/min Estimated GFR (MDRD) > 60 (>60) Glucose 151 H (74-106) mg/dL POC Glucose 174 H (74-106) mg/dL Calcium 9.4 (8.5-10.1) mg/dL C-Reactive Protein 0.31 H (0.0-0.3) mg/dL Result Diagrams: 09/13/21 04:15 09/13/21 04:15 Diego Results Last 24 hrs: Microbiology 09/07/21 09:15 Aerobic Blood Culture - Final Blood - Arm, Left NO GROWTH AFTER 5 DAYS Anaerobic Blood Culture - Final NO GROWTH AFTER 5 DAYS 09/07/21 09:05 Aerobic Blood Culture - Final Blood - Arm, Right NO GROWTH AFTER 5 DAYS Anaerobic Blood Culture - Final NO GROWTH AFTER 5 DAYS Sepsis Event Note - Evaluation Sepsis Screening Result: No Definite Risk - Focused Exam Vital Signs: Vital Signs Temp Pulse Resp BP BP Pulse Ox 09/13/21 10:33 94 09/13/21 10:00 36.1 C 94 18 105/71 93 L 09/13/21 08:11 122/77 09/13/21 07:47 91 L 09/13/21 07:06 36.1 C 84 20 122/77 95 09/13/21 03:00 35.7 C L 85 20 129/76 95 09/13/21 01:27 93 L 09/12/21 23:00 36.7 C 85 20 130/85 95 - Problem List Review Problem List Initiated/Reviewed/Updated: Yes - My Orders Last 24 Hours: My Active Orders 09/12/21 12:29 Transfer Patient (Change bed) [ADT] Routine Discontinue Telemetry Monitoring [Cardiac Monitoring Discontinue] [RC] Click to Edit 09/13/21 11:00 Citalopram Hydrobromide [Celexa] 40 mg PO DAILY predniSONE 20 mg PO ONETIME ONE 09/13/21 11:30 GLUCOSE POC LAB TO COLLECT JPM [POC] QIDACANDBED 09/13/21 13:00 levoFLOXacin [Levaquin] 250 mg PO Q24H levoFLOXacin [Levaquin] 500 mg PO Q24H 09/13/21 16:30 GLUCOSE POC LAB TO COLLECT JPM [POC] QIDACANDBED 09/13/21 21:00 GLUCOSE POC LAB TO COLLECT JPM [POC] QIDACANDBED 09/14/21 05:00 BASIC METABOLIC PANEL,BMP [CHEM] Timed CBC W/O DIFF,HEMOGRAM [HEME] Timed (1) 09/14/21 07:30 GLUCOSE POC LAB TO COLLECT JPM [POC] QIDACANDBED 09/14/21 08:00 predniSONE 20 mg PO WITHBREAKFAST 09/14/21 11:30 GLUCOSE POC LAB TO COLLECT JPM [POC] QIDACANDBED 09/14/21 16:30 GLUCOSE POC LAB TO COLLECT JPM [POC] QIDACANDBED 09/14/21 21:00 GLUCOSE POC LAB TO COLLECT JPM [POC] QIDACANDBED 09/15/21 07:30 GLUCOSE POC LAB TO COLLECT JPM [POC] QIDACANDBED - Plan Plan:: ASSESSMENT AND PLAN - LEFT LUNG PNEUMONIA-complicated by acute respiratory failure with hypoxia. Cultures negative. Slowly getting better. CRP improving. Chest pain improving. -Change steroids to prednisone at 20 mg daily -Hold off on diuresis this morning -Continue levofloxacin, meropenem -Discontinue vancomycin -Supplement oxygen, wean as able -Physical therapy starting on Wednesday ACUTE HYPOXIC RESPIRATORY FAILURE-secondary to current pneumonia. -Supplemental oxygen as needed -Albuterol nebs as needed TYPE 2 DIABETES MELLITUS-sugars acceptable. -Continue outpatient medications -4 times daily glucometers -Low-dose sliding scale Humalog SCHIZOPHRENIA -Continue outpatient medications MAINTENANCE ISSUES -DVT prophylaxis; enoxaparin -GI prophylaxis; not indicated -Welch catheter; not indicated -Nutrition; consistent carbohydrate diet DISPOSITION-anticipate discharge to home after the hospital stay. Helio Lima MD
[2021-09-13] MEDS ORDERED: predniSONE 20 MG Tab PO ONE (11:00)
[2021-09-13] MEDS: Levofloxacin 250 MG Tab PO SCH (13:10)
[2021-09-13] MEDS: Citalopram 20 MG Tab PO SCH (13:10)
[2021-09-13] MEDS: Enoxaparin 40 MG/0.4 ML Syringe SUBCUT SCH (13:11)
[2021-09-13] MEDS: Levofloxacin 500 MG Tab PO SCH (13:11)
[2021-09-13] MEDS: CLOZAPINE 200 MG PO SCH (20:19)
[2021-09-13] MEDS: rOPINIRole 1 MG Tab PO SCH (20:25)
[2021-09-14] MEDS: Meropenem 1 GM in Sodium Chloride 0.9% 100 ML IV SCH ×2 (00:43→08:33)
[2021-09-14] MEDS: Albuterol 0.083% 2.5 MG/3 ML Neb Soln NEB SCH ×4 (07:00→21:10)
[2021-09-14] MEDS: metFORMIN 500 MG Tab PO SCH ×2 (07:15→16:45)
[2021-09-14] MEDS: Estradiol 0.5 MG Tab PO SCH (07:15)
[2021-09-14] MEDS: Pantoprazole 40 MG Tab.CR PO SCH (07:16)
[2021-09-14] MEDS: tiZANidine 2 MG Tab PO SCH ×3 (07:16→20:08)
[2021-09-14] MEDS: predniSONE 20 MG Tab PO SCH (07:16)
[2021-09-14] MEDS: oxyCODONE 5 MG Tab PO PRN ×3 (07:18→18:10)
[2021-09-14] MEDS: Acetaminophen 325 MG Tab PO PRN ×2 (07:18→18:10)
[2021-09-14] MEDS: OLANZapine 5 MG Tab PO SCH ×2 (07:18→20:09)
[2021-09-14] MEDS: Insulin Lispro 100 Unit/ML 3 ML KwikPen SUBCUT SCH ×4 (07:25→21:02)
[2021-09-14] MEDS: Citalopram 20 MG Tab PO SCH (08:24)
[2021-09-14] MEDS: ALPRAZolam 0.5 MG Tab PO SCH ×3 (08:24→21:09)
[2021-09-14] MEDS: Gabapentin 300 MG Cap PO SCH ×3 (08:25→20:08)
[2021-09-14] MEDS: Polyethylene Glycol 3350 Powder 17 GM Packet PO SCH (08:25)
[2021-09-14] MEDS: Furosemide 40 MG/4 ML VIAL IVPUSH SCH (08:25)
[2021-09-14] MEDS: Lisinopril 2.5 MG Tab PO SCH ×2 (08:26→21:09)
--- NOTE | 2021-09-14 10:59 | PCM.PN ---
- General Info Date of Service: 09/14/21 Subjective Update: There were no acute events overnight. Patient is now down to 4 L of supplemental oxygen. She reports that she feels better again today. Her burning chest pain has decreased further but has not quite resolved. Appetite good. Strength is good. Hoping to be able to go home soon. Blood sugars have been well controlled. - Review of Systems General: Denies: Fever Pulmonary: Reports: Shortness of Breath - Patient Data Vitals - Most Recent: Last Vital Signs Temp 35.4 C L 09/14/21 07:22 Pulse 80 09/14/21 10:40 Resp 18 09/14/21 07:22 BP 119/73 09/14/21 08:26 Pulse Ox 92 L 09/14/21 07:22 Weight - Most Recent: 117.48 kg I&O - Last 24 Hours: Intake & Output 09/13/21 09/14/21 09/14/21 23:59 06:59 14:59 Intake Total 600 Output Total Balance 600 Lab Results Last 24 Hours: Laboratory Results - last 24 hr 09/13/21 09/13/21 09/14/21 Range/Units 16:24 20:48 04:15 WBC 16.0 H (4.5-11.0) K/uL RBC 4.15 (3.30-5.50) M/uL Hgb 13.7 (12.0-15.0) g/dL Hct 40.4 (36.0-48.0) % MCV 97 (80-98) fL MCH 33 H (27-31) pg MCHC 34 (32-36) % Plt Count 236 (150-400) K/uL Sodium (140-148) mmol/L Potassium (3.6-5.2) mmol/L Chloride (100-108) mmol/L Carbon Dioxide (21-32) mmol/L Anion Gap (5.0-14.0) mmol/L BUN (7-18) mg/dL Creatinine (0.6-1.0) mg/dL Est Cr Clr Drug Dosing mL/min Estimated GFR (MDRD) (>60) Glucose (74-106) mg/dL POC Glucose 157 H 162 H (74-106) mg/dL Calcium (8.5-10.1) mg/dL 11/07/21 11/07/21 Range/Units 04:15 07:25 WBC (4.5-11.0) K/uL RBC (3.30-5.50) M/uL Hgb (12.0-15.0) g/dL Hct (36.0-48.0) % MCV (80-98) fL MCH (27-31) pg MCHC (32-36) % Plt Count (150-400) K/uL Sodium 140 (140-148) mmol/L Potassium 3.7 (3.6-5.2) mmol/L Chloride 101 (100-108) mmol/L Carbon Dioxide 30 (21-32) mmol/L Anion Gap 8.8 (5.0-14.0) mmol/L BUN 19 H (7-18) mg/dL Creatinine 0.6 (0.6-1.0) mg/dL Est Cr Clr Drug Dosing 108.79 mL/min Estimated GFR (MDRD) > 60 (>60) Glucose 125 H (74-106) mg/dL POC Glucose 89 (74-106) mg/dL Calcium 8.8 (8.5-10.1) mg/dL Med Orders - Current: Current Medications Acetaminophen (Acetaminophen 325 Mg Tab) 650 mg PO Q4H PRN PRN Reason: Pain (Mild 1-3)/fever Last Admin: 09/14/21 07:18 Dose: 650 mg Documented by: Albuterol (Albuterol 0.083% 2.5 Mg/3 Ml Neb Soln) 2.5 mg NEB Q4H PRN PRN Reason: Shortness Of Breath/wheezing Last Admin: 09/08/21 03:52 Dose: 2.5 mg Documented by: Albuterol (Albuterol 0.083% 2.5 Mg/3 Ml Neb Soln) 2.5 mg NEB QIDRT [facility] Last Admin: 09/14/21 10:40 Dose: 2.5 mg Documented by: Alprazolam (Alprazolam 0.5 Mg Tab) 1 mg PO TID [facility] Last Admin: 09/14/21 08:24 Dose: 1 mg Documented by: Citalopram Hydrobromide (Citalopram 20 Mg Tab) 40 mg PO DAILY [facility] Last Admin: 09/14/21 08:24 Dose: 40 mg Documented by: Dextrose (Glucose Gel 15 Gm In 37.5 Gm Tube) 15 gm PO ONETIME PRN PRN Reason: Hypoglycemia Dextrose/Water (50% Dextrose In Water 50 Ml Syringe) 50 ml IV ONETIME PRN PRN Reason: Hypoglycemia Enoxaparin Sodium (Enoxaparin 40 Mg/0.4 Ml Syringe) 40 mg SUBCUT Q24H [facility] Last Admin: 09/13/21 13:11 Dose: 40 mg Documented by: Estradiol (Estradiol 0.5 Mg Tab) 1.5 mg PO DAILY@0800 [facility] Last Admin: 09/14/21 07:15 Dose: 1.5 mg Documented by: Furosemide (Furosemide 40 Mg/4 Ml Vial) 40 mg IVPUSH DAILY [facility] Last Admin: 09/14/21 08:25 Dose: 40 mg Documented by: Gabapentin (Gabapentin 300 Mg Cap) 600 mg PO TID [facility] Last Admin: 09/14/21 08:25 Dose: 600 mg Documented by: Ibuprofen (Ibuprofen 600 Mg Tab) 600 mg PO Q6H PRN PRN Reason: Pain Last Admin: 09/13/21 16:53 Dose: 600 mg Documented by: Insulin Human Lispro (Insulin Lispro 100 Unit/Ml 3 Ml Kwikpen) 0 unit SUBCUT QIDACANDBED [facility]; Protocol Last Admin: 09/14/21 07:25 Dose: Not Given Documented by: Levofloxacin (Levofloxacin 250 Mg Tab) 250 mg PO Q24H [facility] Last Admin: 09/13/21 13:10 Dose: 250 mg Documented by: Levofloxacin (Levofloxacin 500 Mg Tab) 500 mg PO Q24H [facility] Last Admin: 09/13/21 13:11 Dose: 500 mg Documented by: Lisinopril (Lisinopril 2.5 Mg Tab) 2.5 mg PO BID [facility] Last Admin: 09/14/21 08:26 Dose: 2.5 mg Documented by: Metformin HCl (Metformin 500 Mg Tab) 500 mg PO BIDMEALS [facility] Last Admin: 09/14/21 07:15 Dose: 500 mg Documented by: Morphine Sulfate (Morphine 2 Mg/Ml Syringe) 2 mg IVPUSH Q2H PRN PRN Reason: Pain (severe 7-10) Last Admin: 09/11/21 01:28 Dose: 2 mg Documented by: Olanzapine (Olanzapine 5 Mg Tab) 15 mg PO BID@0800,2000 [facility] Last Admin: 09/14/21 07:18 Dose: 15 mg Documented by: Ondansetron HCl (Ondansetron 4 Mg/2 Ml Sdv) 4 mg IV Q4H PRN PRN Reason: Nausea/Vomiting Last Admin: 09/08/21 03:57 Dose: 4 mg Documented by: Oxycodone HCl (Oxycodone 5 Mg Tab) 5 mg PO Q4H PRN PRN Reason: Pain (moderate 4-6) Last Admin: 09/14/21 07:18 Dose: 5 mg Documented by: Pantoprazole Sodium (Pantoprazole 40 Mg Tab.Cr) 40 mg PO ACBREAKFAST [facility] Last Admin: 09/14/21 07:16 Dose: 40 mg Documented by: Trulicity 0.75mg 0 each SUBCUT Th@09 [facility] Last Admin: 09/11/21 08:07 Dose: 1 each Documented by: Clozapine 200mg Tab ((Ptom)) 0 each PO BEDTIME@1999 [facility] Last Admin: 09/13/21 20:19 Dose: 1 each Documented by: Polyethylene Glycol (Polyethylene Glycol 3350 Powder 17 Gm Packet) 17 gm PO DAILY PRN PRN Reason: Constipation Polyethylene Glycol (Polyethylene Glycol 3350 Powder 17 Gm Packet) 17 gm PO DAILY [facility] Last Admin: 09/14/21 08:25 Dose: 17 gm Documented by: Prednisone (Prednisone 20 Mg Tab) 20 mg PO WITHBREAKFAST [facility] Last Admin: 09/14/21 07:16 Dose: 20 mg Documented by: Ropinirole HCl (Ropinirole 1 Mg Tab) 1 mg PO BEDTIME [facility] Last Admin: 09/13/21 20:25 Dose: 1 mg Documented by: Sodium Chloride (Sodium Chloride 0.9% 10 Ml Syringe) 10 ml FLUSH ASDIRECTED PRN PRN Reason: Keep Vein Open Last Admin: 09/11/21 14:10 Dose: 10 ml Documented by: Tizanidine HCl (Tizanidine 2 Mg Tab) 2 mg PO TID@0800,1400,1999 [facility] Last Admin: 09/14/21 07:16 Dose: 2 mg Documented by: Discontinued Medications Acetaminophen (Acetaminophen 500 Mg Tab) 1,000 mg PO Q6H PRN PRN Reason: Pain Last Admin: 09/07/21 09:24 Dose: 1,000 mg Documented by: Doxycycline Hyclate (Doxycycline 100 Mg Cap) 100 mg PO ONETIME ONE Stop: 09/07/21 09:01 Last Admin: 09/07/21 09:23 Dose: 100 mg Documented by: Furosemide (Furosemide 20 Mg/2 Ml Vial) 20 mg IVPUSH ONETIME ONE Stop: 09/08/21 11:03 Last Admin: 09/08/21 11:22 Dose: 20 mg Documented by: Furosemide (Furosemide 20 Mg/2 Ml Vial) 20 mg IVPUSH ONETIME ONE Stop: 09/09/21 09:01 Last Admin: 09/09/21 10:40 Dose: 20 mg Documented by: Furosemide (Furosemide 40 Mg/4 Ml Vial) 40 mg IVPUSH ONETIME ONE Stop: 09/09/21 16:01 Last Admin: 09/09/21 16:37 Dose: 40 mg Documented by: Furosemide (Furosemide 40 Mg/4 Ml Vial) 40 mg IVPUSH ONETIME ONE Stop: 09/10/21 17:05 Last Admin: 09/10/21 17:27 Dose: 40 mg Documented by: Furosemide (Furosemide 40 Mg/4 Ml Vial) 40 mg IVPUSH ONETIME ONE Stop: 09/11/21 16:31 Last Admin: 09/11/21 16:12 Dose: 40 mg Documented by: Ceftriaxone Sodium 1 gm/ (Sodium Chloride) 50 mls @ 100 mls/hr IV ONETIME ONE Stop: 09/07/21 09:59 Last Admin: 09/07/21 09:23 Dose: 100 mls/hr Documented by: Sodium Chloride (Normal Saline) 1,000 mls @ 125 mls/hr IV ASDIRECTED [facility] Last Admin: 09/08/21 04:03 Dose: 125 mls/hr Documented by: Doxycycline Hyclate 100 mg/ (Sodium Chloride) 100 mls @ 100 mls/hr IV Q12H [facility] Last Admin: 09/09/21 08:06 Dose: 100 mls/hr Documented by: Ceftriaxone Sodium 1 gm/ (Sodium Chloride) 50 mls @ 100 mls/hr IV Q24H [facility] Last Admin: 09/09/21 11:45 Dose: 100 mls/hr Documented by: Meropenem 1 gm/ Sodium (Chloride) 100 mls @ 200 mls/hr IV ONETIME ONE Stop: 09/08/21 04:39 Last Admin: 09/08/21 04:34 Dose: 200 mls/hr Documented by: Acetaminophen 1,000 mg/ Premix 100 mls @ 400 mls/hr IV NOW ONE Stop: 09/08/21 04:25 Last Admin: 09/08/21 04:19 Dose: 400 mls/hr Documented by: Levofloxacin/Dextrose 750 mg/ (Premix) 150 mls @ 100 mls/hr IV Q24H [facility] Last Admin: 09/12/21 12:42 Dose: 100 mls/hr Documented by: Meropenem 1 gm/ Sodium (Chloride) 100 mls @ 200 mls/hr IV Q8H [facility] Last Admin: 09/14/21 08:33 Dose: 200 mls/hr Documented by: Vancomycin HCl 1.75 gm/ Sodium (Chloride) 250 mls @ 150 mls/hr IV Q12H [facility] Last Admin: 09/13/21 10:55 Dose: Not Given Documented by: Sodium Chloride (Normal Saline) 100 mls @ 3.5 mls/sec IV ASDIRECTED [facility] Ibuprofen (Ibuprofen 400 Mg Tab) 400 mg PO Q6H PRN PRN Reason: Pain Last Admin: 09/08/21 08:50 Dose: 400 mg Documented by: Ibuprofen (Ibuprofen 400 Mg Tab) 600 mg PO Q6H PRN PRN Reason: Pain Last Admin: 09/08/21 14:57 Dose: 600 mg Documented by: Iopamidol (Iopamidol 755 Mg/Ml 100 Ml Bottle) 100 ml IV . DIRECTED [facility] Stop: 09/11/21 10:30 Methylprednisolone Sodium Succinate (Methylprednisolone Sodium Succinate 125 Mg/2 Ml Sdv) 125 mg IVPUSH ONETIME ONE Stop: 09/08/21 04:33 Last Admin: 09/08/21 04:38 Dose: 125 mg Documented by: Methylprednisolone Sodium Succinate (Methylprednisolone Sodium Succinate 125 Mg/2 Ml Sdv) 125 mg IVPUSH ONETIME ONE Stop: 09/08/21 11:03 Last Admin: 09/08/21 11:22 Dose: 125 mg Documented by: Methylprednisolone Sodium Succinate (Methylprednisolone Sodium Succinate 40 Mg/1 Ml Sdv) 40 mg IVPUSH Q8H [facility] Last Admin: 09/13/21 04:24 Dose: 40 mg Documented by: Morphine Sulfate (Morphine 2 Mg/Ml Syringe) 2 mg IVPUSH STAT STA Stop: 09/08/21 04:10 Last Admin: 09/08/21 04:29 Dose: 2 mg Documented by: Morphine Sulfate (Morphine 2 Mg/Ml Syringe) 2 mg IVPUSH ONETIME ONE Stop: 09/08/21 11:03 Last Admin: 09/08/21 11:23 Dose: 2 mg Documented by: Potassium Chloride (Potassium Chloride 20 Meq Tab.Er) 40 meq PO ONETIME ONE Stop: 09/08/21 10:51 Last Admin: 09/08/21 11:23 Dose: 40 meq Documented by: Prednisone (Prednisone 20 Mg Tab) 20 mg PO ONETIME ONE Stop: 09/13/21 11:01 Last Admin: 09/13/21 13:10 Dose: 20 mg Documented by: Sodium Chloride (Sodium Chloride 0.9% 10 Ml Syringe) 10 ml FLUSH ASDIRECTED PRN PRN Reason: Keep Vein Open Last Admin: 09/07/21 07:58 Dose: 10 ml Documented by: Sodium Chloride (Sodium Chloride 0.9% 10 Ml Syringe) 10 ml FLUSH ONETIME ONE Stop: 09/11/21 09:47 Last Admin: 09/11/21 14:10 Dose: Not Given Documented by: - Exam Quality Assessment: Supplemental Oxygen General: Alert, Oriented, Cooperative, No Acute Distress Lungs: Normal Respiratory Effort, Crackles (few both bases) Cardiovascular: Regular Rate, Regular Rhythm GI/Abdominal Exam: Soft, No Distention Extremities: No Pedal Edema. No: Increased Warmth Skin: Warm, Dry Psy/Mental Status: Alert, Normal Affect - Patient Data Lab Results Last 24 hrs: Laboratory Results - last 24 hr 09/13/21 09/13/21 09/14/21 Range/Units 16:24 20:48 04:15 WBC 16.0 H (4.5-11.0) K/uL RBC 4.15 (3.30-5.50) M/uL Hgb 13.7 (12.0-15.0) g/dL Hct 40.4 (36.0-48.0) % MCV 97 (80-98) fL MCH 33 H (27-31) pg MCHC 34 (32-36) % Plt Count 236 (150-400) K/uL Sodium (140-148) mmol/L Potassium (3.6-5.2) mmol/L Chloride (100-108) mmol/L Carbon Dioxide (21-32) mmol/L Anion Gap (5.0-14.0) mmol/L BUN (7-18) mg/dL Creatinine (0.6-1.0) mg/dL Est Cr Clr Drug Dosing mL/min Estimated GFR (MDRD) (>60) Glucose (74-106) mg/dL POC Glucose 157 H 162 H (74-106) mg/dL Calcium (8.5-10.1) mg/dL 09/14/21 09/14/21 Range/Units 04:15 07:25 WBC (4.5-11.0) K/uL RBC (3.30-5.50) M/uL Hgb (12.0-15.0) g/dL Hct (36.0-48.0) % MCV (80-98) fL MCH (27-31) pg MCHC (32-36) % Plt Count (150-400) K/uL Sodium 140 (140-148) mmol/L Potassium 3.7 (3.6-5.2) mmol/L Chloride 101 (100-108) mmol/L Carbon Dioxide 30 (21-32) mmol/L Anion Gap 8.8 (5.0-14.0) mmol/L BUN 19 H (7-18) mg/dL Creatinine 0.6 (0.6-1.0) mg/dL Est Cr Clr Drug Dosing 108.79 mL/min Estimated GFR (MDRD) > 60 (>60) Glucose 125 H (74-106) mg/dL POC Glucose 89 (74-106) mg/dL Calcium 8.8 (8.5-10.1) mg/dL Result Diagrams: 09/14/21 04:15 09/14/21 04:15 Sepsis Event Note - Evaluation Sepsis Screening Result: No Definite Risk - Focused Exam Vital Signs: Vital Signs Temp Pulse Resp BP BP Pulse Ox 09/14/21 10:40 80 09/14/21 08:26 119/73 09/14/21 07:22 35.4 C L 88 18 119/73 92 L 09/14/21 07:17 97 09/14/21 01:53 [employer] 35.7 C L 76 16 101/52 L 94 L 09/14/21 01:16 CDT 96 - Problem List Review Problem List Initiated/Reviewed/Updated: Yes - My Orders Last 24 Hours: My Active Orders 09/13/21 13:00 Citalopram [Celexa] 40 mg PO DAILY levoFLOXacin [Levaquin] 250 mg PO Q24H levoFLOXacin [Levaquin] 500 mg PO Q24H 09/13/21 14:06 PT Evaluation and Treatment [CONS] Routine 09/14/21 08:00 predniSONE 20 mg PO WITHBREAKFAST 09/14/21 11:30 GLUCOSE POC LAB TO COLLECT JPM [POC] QIDACANDBED 09/14/21 16:30 GLUCOSE POC LAB TO COLLECT JPM [POC] QIDACANDBED 09/14/21 21:00 GLUCOSE POC LAB TO COLLECT JPM [POC] QIDACANDBED 09/15/21 05:00 BASIC METABOLIC PANEL,BMP [CHEM] Timed CBC W/O DIFF,HEMOGRAM [HEME] Timed (1) 09/15/21 07:30 GLUCOSE POC LAB TO COLLECT JPM [POC] QIDACANDBED - Plan Plan:: ASSESSMENT AND PLAN - LEFT LUNG PNEUMONIA-complicated by acute respiratory failure with hypoxia. Cultures negative. Slowly getting better and now down to 4 L of oxygen. -Continue prednisone at 20 mg daily for a day or 2 -Additional dose of furosemide this morning -Continue levofloxacin (cont until 09/17) -Discontinue meropenem -Supplement oxygen, wean as able -Physical therapy starting on Wednesday ACUTE HYPOXIC RESPIRATORY FAILURE-secondary to current pneumonia. Steadily improving but still requiring oxygen. I anticipate she will need oxygen at the time of discharge. -Supplemental oxygen as needed -Albuterol nebs as needed TYPE 2 DIABETES MELLITUS-sugars acceptable. -Continue outpatient medications -4 times daily glucometers -Low-dose sliding scale Humalog SCHIZOPHRENIA -Continue outpatient medications MAINTENANCE ISSUES -DVT prophylaxis; enoxaparin -GI prophylaxis; not indicated -Welch catheter; not indicated -Nutrition; consistent carbohydrate diet DISPOSITION-anticipate discharge to home after the hospital stay. Helio Lima MD
[2021-09-14] MEDS ORDERED: Furosemide 20 MG/2 ML VIAL IVPUSH ONE (11:10)
[2021-09-14] MEDS: Levofloxacin 250 MG Tab PO SCH (14:04)
[2021-09-14] MEDS: Levofloxacin 500 MG Tab PO SCH (14:06)
[2021-09-14] MEDS: Enoxaparin 40 MG/0.4 ML Syringe SUBCUT SCH (14:06)
[2021-09-14] MEDS: rOPINIRole 1 MG Tab PO SCH (20:09)
[2021-09-14] MEDS: CLOZAPINE 200 MG PO SCH (20:10)
[2021-09-15] MEDS: oxyCODONE 5 MG Tab PO PRN ×4 (07:01→22:29)
[2021-09-15] MEDS: Albuterol 0.083% 2.5 MG/3 ML Neb Soln NEB SCH ×4 (07:17→22:07)
[2021-09-15] MEDS: Pantoprazole 40 MG Tab.CR PO SCH (07:25)
[2021-09-15] MEDS: Insulin Lispro 100 Unit/ML 3 ML KwikPen SUBCUT SCH ×4 (07:36→21:55)
[2021-09-15] MEDS: metFORMIN 500 MG Tab PO SCH ×2 (08:49→17:05)
[2021-09-15] MEDS: Estradiol 0.5 MG Tab PO SCH (08:49)
[2021-09-15] MEDS: Citalopram 20 MG Tab PO SCH (08:50)
[2021-09-15] MEDS: OLANZapine 5 MG Tab PO SCH ×2 (08:50→22:00)
[2021-09-15] MEDS: tiZANidine 2 MG Tab PO SCH ×3 (08:50→22:00)
[2021-09-15] MEDS: predniSONE 20 MG Tab PO SCH (08:50)
[2021-09-15] MEDS: Polyethylene Glycol 3350 Powder 17 GM Packet PO SCH (08:51)
[2021-09-15] MEDS: Lisinopril 2.5 MG Tab PO SCH ×2 (08:51→22:02)
[2021-09-15] MEDS: ALPRAZolam 0.5 MG Tab PO SCH ×3 (08:51→22:04)
[2021-09-15] MEDS: Gabapentin 300 MG Cap PO SCH ×3 (08:51→22:01)
[2021-09-15] MEDS ORDERED: Potassium Chloride 20 MEQ Tab.ER PO ONE (09:00)
[2021-09-15] MEDS: Ibuprofen 600 MG Tab PO PRN (11:12)
--- NOTE | 2021-09-15 13:53 | PCM.PN ---
- General Info Date of Service: 09/15/21 Subjective Update: Ms. Shane has been stable over the last 24 hours and continues to experience improvement in respiratory status. She is now down to 4 L of oxygen per minute via nasal cannula. She reports feeling improved with increase in appetite and overall strength. Functional Status: Reports: Tolerating Diet, Ambulating, Urinating - Review of Systems General: Reports: Weakness, Fatigue. Denies: Fever, Chills Pulmonary: Reports: Shortness of Breath. Denies: Pleuritic Chest Pain, Cough, Sputum, Hemoptysis, Wheezing Cardiovascular: Reports: Dyspnea on Exertion. Denies: Chest Pain, Palpitations, Orthopnea, PND, Edema, Lightheadedness Gastrointestinal: Reports: No Symptoms Genitourinary: Reports: No Symptoms - Patient Data Vitals - Most Recent: Last Vital Signs Temp 96.1 F L 09/15/21 11:47 Pulse 93 09/15/21 11:47 Resp 18 09/15/21 11:47 BP 100/56 L 09/15/21 11:47 Pulse Ox 94 L 09/15/21 11:47 Weight - Most Recent: 259 lb I&O - Last 24 Hours: Intake & Output 09/14/21 09/15/21 09/15/21 22:59 06:59 14:59 Intake Total 1160 1660 Output Total 1000 1000 Balance 160 660 Lab Results Last 24 Hours: Laboratory Results - last 24 hr 09/14/21 09/14/21 09/15/21 Range/Units 16:26 20:57 04:25 WBC 13.0 H (4.5-11.0) K/uL RBC 4.07 (3.30-5.50) M/uL Hgb 13.1 (12.0-15.0) g/dL Hct 39.6 (36.0-48.0) % MCV 97 (80-98) fL MCH 32 H (27-31) pg MCHC 33 (32-36) % Plt Count 288 (150-400) K/uL Sodium (140-148) mmol/L Potassium (3.6-5.2) mmol/L Chloride (100-108) mmol/L Carbon Dioxide (21-32) mmol/L Anion Gap (5.0-14.0) mmol/L BUN (7-18) mg/dL Creatinine (0.6-1.0) mg/dL Est Cr Clr Drug Dosing mL/min Estimated GFR (MDRD) (>60) Glucose (74-106) mg/dL POC Glucose 200 H 89 (74-106) mg/dL Calcium (8.5-10.1) mg/dL 09/15/21 09/15/21 09/15/21 Range/Units 04:25 07:23 11:36 WBC (4.5-11.0) K/uL RBC (3.30-5.50) M/uL Hgb (12.0-15.0) g/dL Hct (36.0-48.0) % MCV (80-98) fL MCH (27-31) pg MCHC (32-36) % Plt Count (150-400) K/uL Sodium 141 (140-148) mmol/L Potassium 3.4 L (3.6-5.2) mmol/L Chloride 103 (100-108) mmol/L Carbon Dioxide 31 (21-32) mmol/L Anion Gap 10.4 (5.0-14.0) mmol/L BUN 19 H (7-18) mg/dL Creatinine 0.6 (0.6-1.0) mg/dL Est Cr Clr Drug Dosing 108.79 mL/min Estimated GFR (MDRD) > 60 (>60) Glucose 104 (74-106) mg/dL POC Glucose 80 145 H (74-106) mg/dL Calcium 8.6 (8.5-10.1) mg/dL Med Orders - Current: Current Medications Acetaminophen (Acetaminophen 325 Mg Tab) 650 mg PO Q4H PRN PRN Reason: Pain (Mild 1-3)/fever Last Admin: 09/14/21 18:10 Dose: 650 mg Documented by: Albuterol (Albuterol 0.083% 2.5 Mg/3 Ml Neb Soln) 2.5 mg NEB Q4H PRN PRN Reason: Shortness Of Breath/wheezing Last Admin: 09/08/21 03:52 Dose: 2.5 mg Documented by: Albuterol (Albuterol 0.083% 2.5 Mg/3 Ml Neb Soln) 2.5 mg NEB QIDRT [facility] Last Admin: 09/15/21 10:47 Dose: 2.5 mg Documented by: Alprazolam (Alprazolam 0.5 Mg Tab) 1 mg PO TID [facility] Last Admin: 09/15/21 08:51 Dose: 1 mg Documented by: Citalopram Hydrobromide (Citalopram 20 Mg Tab) 40 mg PO DAILY [facility] Last Admin: 09/15/21 08:50 Dose: 40 mg Documented by: Dextrose (Glucose Gel 15 Gm In 37.5 Gm Tube) 15 gm PO ONETIME PRN PRN Reason: Hypoglycemia Dextrose/Water (50% Dextrose In Water 50 Ml Syringe) 50 ml IV ONETIME PRN PRN Reason: Hypoglycemia Enoxaparin Sodium (Enoxaparin 40 Mg/0.4 Ml Syringe) 40 mg SUBCUT Q24H [facility] Last Admin: 09/14/21 14:06 Dose: 40 mg Documented by: Estradiol (Estradiol 0.5 Mg Tab) 1.5 mg PO DAILY@0800 [facility] Last Admin: 09/15/21 08:49 Dose: 1.5 mg Documented by: Gabapentin (Gabapentin 300 Mg Cap) 600 mg PO TID [facility] Last Admin: 09/15/21 08:51 Dose: 600 mg Documented by: Ibuprofen (Ibuprofen 600 Mg Tab) 600 mg PO Q6H PRN PRN Reason: Pain Last Admin: 09/15/21 11:12 Dose: 600 mg Documented by: Insulin Human Lispro (Insulin Lispro 100 Unit/Ml 3 Ml Kwikpen) 0 unit SUBCUT QIDACANDBED [facility]; Protocol Last Admin: 09/15/21 11:43 Dose: Not Given Documented by: Levofloxacin (Levofloxacin 250 Mg Tab) 250 mg PO Q24H [facility] Last Admin: 09/14/21 14:04 Dose: 250 mg Documented by: Levofloxacin (Levofloxacin 500 Mg Tab) 500 mg PO Q24H [facility] Last Admin: 09/14/21 14:06 Dose: 500 mg Documented by: Lisinopril (Lisinopril 2.5 Mg Tab) 2.5 mg PO BID [facility] Last Admin: 09/15/21 08:51 Dose: 2.5 mg Documented by: Metformin HCl (Metformin 500 Mg Tab) 500 mg PO BIDMEALS [facility] Last Admin: 09/15/21 08:49 Dose: 500 mg Documented by: Morphine Sulfate (Morphine 2 Mg/Ml Syringe) 2 mg IVPUSH Q2H PRN PRN Reason: Pain (severe 7-10) Last Admin: 09/11/21 01:28 Dose: 2 mg Documented by: Olanzapine (Olanzapine 5 Mg Tab) 15 mg PO BID@ [facility] Last Admin: 09/15/21 08:50 Dose: 15 mg Documented by: Ondansetron HCl (Ondansetron 4 Mg/2 Ml Sdv) 4 mg IV Q4H PRN PRN Reason: Nausea/Vomiting Last Admin: 09/08/21 03:57 Dose: 4 mg Documented by: Oxycodone HCl (Oxycodone 5 Mg Tab) 5 mg PO Q4H PRN PRN Reason: Pain (moderate 4-6) Last Admin: 09/15/21 11:13 Dose: 5 mg Documented by: Pantoprazole Sodium (Pantoprazole 40 Mg Tab.Cr) 40 mg PO ACBREAKFAST [facility] Last Admin: 09/15/21 07:25 Dose: 40 mg Documented by: Trulicity 0.75mg 0 each SUBCUT Th@09 [facility] Last Admin: 09/11/21 08:07 Dose: 1 each Documented by: Clozapine 200mg Tab ((Ptom)) 0 each PO BEDTIME@1999 [facility] Last Admin: 09/14/21 20:10 Dose: 1 each Documented by: Polyethylene Glycol (Polyethylene Glycol 3350 Powder 17 Gm Packet) 17 gm PO DAILY PRN PRN Reason: Constipation Polyethylene Glycol (Polyethylene Glycol 3350 Powder 17 Gm Packet) 17 gm PO DAILY [facility] Last Admin: 09/15/21 08:51 Dose: 17 gm Documented by: Prednisone (Prednisone 20 Mg Tab) 20 mg PO WITHBREAKFAST [facility] Last Admin: 09/15/21 08:50 Dose: 20 mg Documented by: Ropinirole HCl (Ropinirole 1 Mg Tab) 1 mg PO BEDTIME [facility] Last Admin: 09/14/21 20:09 Dose: 1 mg Documented by: Sodium Chloride (Sodium Chloride 0.9% 10 Ml Syringe) 10 ml FLUSH ASDIRECTED PRN PRN Reason: Keep Vein Open Last Admin: 09/11/21 14:10 Dose: 10 ml Documented by: Tizanidine HCl (Tizanidine 2 Mg Tab) 2 mg PO TID@0800,1399,1999 [facility] Last Admin: 09/15/21 08:50 Dose: 2 mg Documented by: Discontinued Medications Acetaminophen (Acetaminophen 500 Mg Tab) 1,000 mg PO Q6H PRN PRN Reason: Pain Last Admin: 09/07/21 09:24 Dose: 1,000 mg Documented by: Doxycycline Hyclate (Doxycycline 100 Mg Cap) 100 mg PO ONETIME ONE Stop: 09/07/21 09:01 Last Admin: 09/07/21 09:23 Dose: 100 mg Documented by: Furosemide (Furosemide 20 Mg/2 Ml Vial) 20 mg IVPUSH ONETIME ONE Stop: 09/08/21 11:03 Last Admin: 09/08/21 11:22 Dose: 20 mg Documented by: Furosemide (Furosemide 20 Mg/2 Ml Vial) 20 mg IVPUSH ONETIME ONE Stop: 09/09/21 09:01 Last Admin: 09/09/21 10:40 Dose: 20 mg Documented by: Furosemide (Furosemide 40 Mg/4 Ml Vial) 40 mg IVPUSH ONETIME ONE Stop: 09/09/21 16:01 Last Admin: 09/09/21 16:37 Dose: 40 mg Documented by: Furosemide (Furosemide 40 Mg/4 Ml Vial) 40 mg IVPUSH DAILY [facility] Last Admin: 09/14/21 08:25 Dose: 40 mg Documented by: Furosemide (Furosemide 40 Mg/4 Ml Vial) 40 mg IVPUSH ONETIME ONE Stop: 09/10/21 17:05 Last Admin: 09/10/21 17:27 Dose: 40 mg Documented by: Furosemide (Furosemide 40 Mg/4 Ml Vial) 40 mg IVPUSH ONETIME ONE Stop: 09/11/21 16:31 Last Admin: 09/11/21 16:12 Dose: 40 mg Documented by: Furosemide (Furosemide 20 Mg/2 Ml Vial) 20 mg IVPUSH ONETIME ONE Stop: 09/14/21 11:11 Last Admin: 09/14/21 12:01 Dose: Not Given Documented by: Ceftriaxone Sodium 1 gm/ (Sodium Chloride) 50 mls @ 100 mls/hr IV ONETIME ONE Stop: 09/07/21 09:59 Last Admin: 09/07/21 09:23 Dose: 100 mls/hr Documented by: Sodium Chloride (Normal Saline) 1,000 mls @ 125 mls/hr IV ASDIRECTED [facility] Last Admin: 09/08/21 04:03 Dose: 125 mls/hr Documented by: Doxycycline Hyclate 100 mg/ (Sodium Chloride) 100 mls @ 100 mls/hr IV Q12H [facility] Last Admin: 09/09/21 08:06 Dose: 100 mls/hr Documented by: Ceftriaxone Sodium 1 gm/ (Sodium Chloride) 50 mls @ 100 mls/hr IV Q24H [facility] Last Admin: 09/09/21 11:45 Dose: 100 mls/hr Documented by: Meropenem 1 gm/ Sodium (Chloride) 100 mls @ 200 mls/hr IV ONETIME ONE Stop: 09/08/21 04:39 Last Admin: 09/08/21 04:34 Dose: 200 mls/hr Documented by: Acetaminophen 1,000 mg/ Premix 100 mls @ 400 mls/hr IV NOW ONE Stop: 09/08/21 04:25 Last Admin: 09/08/21 04:19 Dose: 400 mls/hr Documented by: Levofloxacin/Dextrose 750 mg/ (Premix) 150 mls @ 100 mls/hr IV Q24H [facility] Last Admin: 09/12/21 12:42 Dose: 100 mls/hr Documented by: Meropenem 1 gm/ Sodium (Chloride) 100 mls @ 200 mls/hr IV Q8H [facility] Last Admin: 09/14/21 08:33 Dose: 200 mls/hr Documented by: Vancomycin HCl 1.75 gm/ Sodium (Chloride) 250 mls @ 150 mls/hr IV Q12H [facility] Last Admin: 09/13/21 10:55 Dose: Not Given Documented by: Sodium Chloride (Normal Saline) 100 mls @ 3.5 mls/sec IV ASDIRECTED [facility] Ibuprofen (Ibuprofen 400 Mg Tab) 400 mg PO Q6H PRN PRN Reason: Pain Last Admin: 09/08/21 08:50 Dose: 400 mg Documented by: Ibuprofen (Ibuprofen 400 Mg Tab) 600 mg PO Q6H PRN PRN Reason: Pain Last Admin: 09/08/21 14:57 Dose: 600 mg Documented by: Iopamidol (Iopamidol 755 Mg/Ml 100 Ml Bottle) 100 ml IV . DIRECTED [facility] Stop: 09/11/21 10:30 Methylprednisolone Sodium Succinate (Methylprednisolone Sodium Succinate 125 Mg/2 Ml Sdv) 125 mg IVPUSH ONETIME ONE Stop: 09/08/21 04:33 Last Admin: 09/08/21 04:38 Dose: 125 mg Documented by: Methylprednisolone Sodium Succinate (Methylprednisolone Sodium Succinate 125 Mg/2 Ml Sdv) 125 mg IVPUSH ONETIME ONE Stop: 09/08/21 11:03 Last Admin: 09/08/21 11:22 Dose: 125 mg Documented by: Methylprednisolone Sodium Succinate (Methylprednisolone Sodium Succinate 40 Mg/1 Ml Sdv) 40 mg IVPUSH Q8H [facility] Last Admin: 09/13/21 04:24 Dose: 40 mg Documented by: Morphine Sulfate (Morphine 2 Mg/Ml Syringe) 2 mg IVPUSH STAT STA Stop: 09/08/21 04:10 Last Admin: 09/08/21 04:29 Dose: 2 mg Documented by: Morphine Sulfate (Morphine 2 Mg/Ml Syringe) 2 mg IVPUSH ONETIME ONE Stop: 09/08/21 11:03 Last Admin: 09/08/21 11:23 Dose: 2 mg Documented by: Potassium Chloride (Potassium Chloride 20 Meq Tab.Er) 40 meq PO ONETIME ONE Stop: 09/08/21 10:51 Last Admin: 09/08/21 11:23 Dose: 40 meq Documented by: Potassium Chloride (Potassium Chloride 20 Meq Tab.Er) 40 meq PO ONETIME ONE Stop: 09/15/21 09:01 Last Admin: 09/15/21 08:50 Dose: 40 meq Documented by: Prednisone (Prednisone 20 Mg Tab) 20 mg PO ONETIME ONE Stop: 09/13/21 11:01 Last Admin: 09/13/21 13:10 Dose: 20 mg Documented by: Sodium Chloride (Sodium Chloride 0.9% 10 Ml Syringe) 10 ml FLUSH ASDIRECTED PRN PRN Reason: Keep Vein Open Last Admin: 09/07/21 07:58 Dose: 10 ml Documented by: Sodium Chloride (Sodium Chloride 0.9% 10 Ml Syringe) 10 ml FLUSH ONETIME ONE Stop: 09/11/21 09:47 Last Admin: 09/11/21 14:10 Dose: Not Given Documented by: - Exam Quality Assessment: Supplemental Oxygen, DVT Prophylaxis General: Alert, Oriented, Cooperative, Mild Distress Lungs: Clear to Auscultation, Normal Respiratory Effort Cardiovascular: Regular Rate, Regular Rhythm, No Murmurs GI/Abdominal Exam: Soft, Non-Tender, No Organomegaly, No Distention Extremities: Non-Tender, No Pedal Edema - Patient Data Lab Results Last 24 hrs: Laboratory Results - last 24 hr 09/14/21 09/14/21 09/15/21 Range/Units 16:26 20:57 04:25 WBC 13.0 H (4.5-11.0) K/uL RBC 4.07 (3.30-5.50) M/uL Hgb 13.1 (12.0-15.0) g/dL Hct 39.6 (36.0-48.0) % MCV 97 (80-98) fL MCH 32 H (27-31) pg MCHC 33 (32-36) % Plt Count 288 (150-400) K/uL Sodium (140-148) mmol/L Potassium (3.6-5.2) mmol/L Chloride (100-108) mmol/L Carbon Dioxide (21-32) mmol/L Anion Gap (5.0-14.0) mmol/L BUN (7-18) mg/dL Creatinine (0.6-1.0) mg/dL Est Cr Clr Drug Dosing mL/min Estimated GFR (MDRD) (>60) Glucose (74-106) mg/dL POC Glucose 200 H 89 (74-106) mg/dL Calcium (8.5-10.1) mg/dL 09/15/21 09/15/21 09/15/21 Range/Units 04:25 07:23 11:36 WBC (4.5-11.0) K/uL RBC (3.30-5.50) M/uL Hgb (12.0-15.0) g/dL Hct (36.0-48.0) % MCV (80-98) fL MCH (27-31) pg MCHC (32-36) % Plt Count (150-400) K/uL Sodium 141 (140-148) mmol/L Potassium 3.4 L (3.6-5.2) mmol/L Chloride 103 (100-108) mmol/L Carbon Dioxide 31 (21-32) mmol/L Anion Gap 10.4 (5.0-14.0) mmol/L BUN 19 H (7-18) mg/dL Creatinine 0.6 (0.6-1.0) mg/dL Est Cr Clr Drug Dosing 108.79 mL/min Estimated GFR (MDRD) > 60 (>60) Glucose 104 (74-106) mg/dL POC Glucose 80 145 H (74-106) mg/dL Calcium 8.6 (8.5-10.1) mg/dL Result Diagrams: 11/08/21 04:25 09/15/21 04:25 Sepsis Event Note - Evaluation Sepsis Screening Result: No Definite Risk - Focused Exam Vital Signs: Vital Signs Temp Pulse Resp BP BP Pulse Ox Pulse Ox 09/15/21 11:47 96.1 F L 93 18 100/56 L 94 L 09/15/21 09:04 91 L 09/15/21 09:03 90 18 91 L 09/15/21 08:51 109/58 L 09/15/21 07:00 96.9 F 79 16 109/58 L 94 L 09/15/21 02:50 97.1 F 85 16 102/61 95 - Problem List Review Problem List Initiated/Reviewed/Updated: Yes - My Orders Last 24 Hours: My Active Orders 09/15/21 12:08 Peripheral IV Discontinue [OM.PC] Routine 09/16/21 05:00 BASIC METABOLIC PANEL,BMP [CHEM] Timed CBC WITH AUTO DIFF [HEME] Timed - Plan Plan:: ASSESSMENT AND PLAN - LEFT LUNG PNEUMONIA-complicated by acute respiratory failure with hypoxia. Cultures negative. Slowly getting better and now down to 4 L of oxygen. -Continue prednisone at 20 mg daily for one more day -Continue levofloxacin (cont until 09/17) -Supplement oxygen, wean as able -Physical therapy starting on Wednesday ACUTE HYPOXIC RESPIRATORY FAILURE-secondary to current pneumonia. Steadily improving but still requiring oxygen. I anticipate she will need oxygen at the time of discharge. -Supplemental oxygen as needed -Albuterol nebs as needed TYPE 2 DIABETES MELLITUS-sugars acceptable. -Continue outpatient medications -4 times daily glucometers -Low-dose sliding scale Humalog SCHIZOPHRENIA -Continue outpatient medications MAINTENANCE ISSUES -DVT prophylaxis; enoxaparin -GI prophylaxis; not indicated -Welch catheter; not indicated -Nutrition; consistent carbohydrate diet DISPOSITION-anticipate discharge to home after the hospital stay.
[2021-09-15] MEDS: Levofloxacin 500 MG Tab PO SCH (14:06)
[2021-09-15] MEDS: Levofloxacin 250 MG Tab PO SCH (14:06)
[2021-09-15] MEDS: Enoxaparin 40 MG/0.4 ML Syringe SUBCUT SCH (14:07)
[2021-09-15] MEDS ORDERED: Calcium Carbonate 500 MG Tab.Chew PO PRN (17:57)
[2021-09-15] MEDS ORDERED: Ondansetron 4 MG Tab.DIS PO PRN (17:58)
[2021-09-15] MEDS: CLOZAPINE 200 MG PO SCH (21:59)
[2021-09-15] MEDS: rOPINIRole 1 MG Tab PO SCH (22:03)
[2021-09-16] MEDS: Albuterol 0.083% 2.5 MG/3 ML Neb Soln NEB SCH ×2 (07:16→10:43)
[2021-09-16] MEDS: oxyCODONE 5 MG Tab PO PRN ×2 (07:27→12:14)
[2021-09-16] MEDS: predniSONE 20 MG Tab PO SCH (07:27)
[2021-09-16] MEDS: Pantoprazole 40 MG Tab.CR PO SCH (07:28)
[2021-09-16] MEDS: Estradiol 0.5 MG Tab PO SCH (07:28)
[2021-09-16] MEDS: OLANZapine 5 MG Tab PO SCH (07:29)
[2021-09-16] MEDS: metFORMIN 500 MG Tab PO SCH (07:29)
[2021-09-16] MEDS: tiZANidine 2 MG Tab PO SCH (07:31)
[2021-09-16] MEDS: Insulin Lispro 100 Unit/ML 3 ML KwikPen SUBCUT SCH (07:42)
[2021-09-16] MEDS: Polyethylene Glycol 3350 Powder 17 GM Packet PO SCH (08:03)
[2021-09-16] MEDS: Citalopram 20 MG Tab PO SCH (08:03)
[2021-09-16] MEDS: Gabapentin 300 MG Cap PO SCH (08:04)
[2021-09-16] MEDS: ALPRAZolam 0.5 MG Tab PO SCH (08:43)
--- NOTE | 2021-09-16 12:29 | PCM.DCSUM1 ---
Discharge Summary - Hospital Course Brief History: Ms. Shane is a 41-year-old woman who was admitted through the emergency department with shortness of breath and weakness secondary to left lung pneumonia and acute hypoxic respiratory failure. - Discharge Data Discharge Date: 09/16/21 Discharge Disposition: Home, Self-Care 01 Condition: Stable - Referral to Home Health Primary Care Physician: PCP Unknown - Discharge Diagnosis/Problem(s) (1) Acute respiratory failure with hypoxia SNOMED Code(s): 75621499, 368618520 ICD Code: J96.01 - ACUTE RESPIRATORY FAILURE WITH HYPOXIA Status: Acute Current Visit: Yes (2) Obesity hypoventilation syndrome SNOMED Code(s): 51299291, 633963558 ICD Code: E66.2 - MORBID (SEVERE) OBESITY WITH ALVEOLAR HYPOVENTILATION Status: Acute Current Visit: Yes (3) Pneumonia SNOMED Code(s): 298968730 ICD Code: J18.9 - PNEUMONIA, UNSPECIFIED ORGANISM Status: Acute Current Visit: Yes Qualifiers: Pneumonia type: due to unspecified organism Laterality: left Lung location: lower lobe of lung Qualified Code(s): J18.9 - Pneumonia, unspecified organism (4) Schizophrenia, catatonic type SNOMED Code(s): 148528549 ICD Code: F20.2 - CATATONIC SCHIZOPHRENIA Status: Chronic Current Visit: No (5) Type 2 diabetes mellitus SNOMED Code(s): 14542744 ICD Code: E11.9 - TYPE 2 DIABETES MELLITUS WITHOUT COMPLICATIONS Status: Chronic Current Visit: No Qualifiers: Diabetes mellitus termite control service representative insulin use: without termite control service representative use Diabetes mellitus complication status: without complication Qualified Code(s): E11.9 - Type 2 diabetes mellitus without complications - Patient Summary/Data Consults: Consultations 09/13/21 14:06 PT Evaluation and Treatment [CONS] Routine Please Evaluate and Treat. PT Reason for Consult: Strengthening This query below is only for informational purposes and is not editable. Admission Diagnosis/Problem: Pneumonia 09/16/21 10:17 Consult to Respiratory Therapy [Respiratory Care Assess and Treatment] [CONS] Routine Comment: Physician Instructions: assess for home O2 use Hospital Course: Ms. Shane is a 41-year-old woman who was admitted through the emergency department with cough, shortness of breath, and weakness secondary to left lung pneumonia. She was hospitalized here in July with pneumonia and had felt well until the day prior to admission. She is noted onset of chills, cough and weakness over the last 24 hours. She presented to the emergency department this morning and chest x-ray documents a left lung infiltrate. White blood cell count is elevated. There is mild hypoxia and other than mild elevation in heart rate no significant evidence of sepsis. Blood cultures were obtained in the emergency department and she was started on appropriate IV antibiotic therapy for community-acquired pneumonia. She was given IV fluids through the first night for hydration. IV fluids were discontinued the next day. Over the next few days of hospitalization she did develop increasing hypoxia and requiring increased levels of supplemental oxygen. Because of this she was transferred to the intensive care unit and while there was on 15 L/min of high flow oxygen via nasal cannula. She was given IV diuretic therapy and had a good diuresis. She was also started on steroids for possible reactive airway process. She gradually improved and was transferred back to the medical surgical floor. By the time of discharge she had completed a 10-day course of antibiotic therapy. Steroids were discontinued on the day of discharge. She is felt to have a component of obesity related hypoventilation. And did require ongoing supplemental oxygen up until the time of discharge. She on the day of discharge she qualified for home oxygen with an oxygen saturation of 87% on room air while at rest. She will be discharged home on 1 L of oxygen per minute via nasal cannula. Activity will be as tolerated and she will remain on a diabetic diet. She was treated with usual insulin and oral hypoglycemic medications during hospitalization and glucose levels were monitored on a regular basis. Follow-up appointment will be scheduled with her primary care provider within 1 week. - Patient Instructions Diet: Diabetic Diet Activity: As Tolerated Other/Special Instructions: Please arrange for home oxygen 1 L/min via nasal cannula. Please schedule follow-up appointment with primary care provider within 1 week. - Discharge Plan *PRESCRIPTION DRUG MONITORING PROGRAM REVIEWED*: Not Applicable *COPY OF PRESCRIPTION DRUG MONITORING REPORT IN PATIENT ROSIE: Not Applicable Home Medications: Home Meds OLANZapine [Olanzapine] 15 mg PO BID 07/23/20 [History] Omeprazole 20 mg PO DAILY 07/23/20 [History] cloZAPine [Clozapine] 200 mg PO BEDTIME 07/23/20 [History] estradioL [Estradiol] 1.5 mg PO DAILY 07/23/20 [History] rOPINIRole [Requip] 1 mg PO BEDTIME 07/23/20 [History] tiZANidine 2 mg PO TID 07/23/20 [History] lisinopriL [Prinivil] 2.5 mg PO BID 11/25/20 [History] Dulaglutide [Trulicity] 0.75 mg SQ WEEKLY 07/15/21 [History] polyethylene glycoL 3350 [MiraLAX] 17 gm PO DAILY 07/15/21 [History] Ascorbic Acid [Vitamin C] 500 mg PO DAILY@0800 #30 tablet 07/19/21 [Rx] Cholecalciferol (Vitamin D3) [Vitamin D3] 25 mcg PO DAILY@0800 #30 tablet 07/19/21 [Rx] Multivit with Calcium,Iron,Min [One Daily Women's] 1 each PO DAILY #30 tablet 07/19/21 [Rx] *Quercetin 250 mg PO DAILY 09/07/21 [History] ALPRAZolam [Alprazolam] 1 mg PO TID 09/07/21 [History] Gabapentin [Neurontin] 800 mg PO TID 09/07/21 [History] Piroxicam 20 mg PO DAILY 09/07/21 [History] Zinc 50 mg PO DAILY 09/07/21 [History] metFORMIN [Glucophage XR] 1,000 mg PO DAILY 09/07/21 [History] Citalopram Hydrobromide [Celexa] 40 mg PO DAILY 09/13/21 [History] Oxygen Therapy Mode: Nasal Cannula Oxygen Flow Rate (L/min): 1 Patient Handouts: Community-Acquired Pneumonia, Adult, [id number] Referrals: Arthur Salazar MD [Physician] - 09/22/21 11:00 am (Your Primary MD is not in clinic for 2weeks. Follow up appointment made with Dr. Salazar. [facility] appointment [facility] at the [facility].) - Discharge Summary/Plan Comment DC Time >30 min.: No Total # of Minutes for Discharge Time: 20 - Patient Data Vitals - Most Recent: Last Vital Signs Temp 97 F 09/16/21 07:46 Pulse 82 09/16/21 03:34 Resp 17 09/16/21 07:46 BP 101/46 L 09/16/21 07:46 Pulse Ox 87 L 09/16/21 09:49 Weight - Most Recent: 259 lb I&O - Last 24 hours: Intake & Output 09/15/21 09/16/21 09/16/21 22:59 06:59 14:59 Intake Total 500 500 Output Total 900 500 Balance -400 -500 500 Lab Results - Last 24 hrs: Laboratory Results - last 24 hr 09/15/21 09/15/21 09/16/21 Range/Units 16:35 21:35 04:20 WBC 12.6 H (4.5-11.0) K/uL RBC 4.05 (3.30-5.50) M/uL Hgb 13.3 (12.0-15.0) g/dL Hct 39.8 (36.0-48.0) % MCV 98 (80-98) fL MCH 33 H (27-31) pg MCHC 33 (32-36) % Plt Count 226 (150-400) K/uL Add Manual Diff Yes Neutrophils % (Manual) 61 (36-66) % Band Neutrophils % 3 L (5-11) % Lymphocytes % (Manual) 26 (24-44) % Monocytes % (Manual) 9 H (2-6) % Eosinophils % (Manual) 1 L (2-4) % Sodium (140-148) mmol/L Potassium (3.6-5.2) mmol/L Chloride (100-108) mmol/L Carbon Dioxide (21-32) mmol/L Anion Gap (5.0-14.0) mmol/L BUN (7-18) mg/dL Creatinine (0.6-1.0) mg/dL Est Cr Clr Drug Dosing mL/min Estimated GFR (MDRD) (>60) Glucose (74-106) mg/dL POC Glucose 164 H 100 (74-106) mg/dL Calcium (8.5-10.1) mg/dL 09/16/21 09/16/21 09/16/21 Range/Units 04:20 07:27 11:41 WBC (4.5-11.0) K/uL RBC (3.30-5.50) M/uL Hgb (12.0-15.0) g/dL Hct (36.0-48.0) % MCV (80-98) fL MCH (27-31) pg MCHC (32-36) % Plt Count (150-400) K/uL Add Manual Diff Neutrophils % (Manual) (36-66) % Band Neutrophils % (5-11) % Lymphocytes % (Manual) (24-44) % Monocytes % (Manual) (2-6) % Eosinophils % (Manual) (2-4) % Sodium 143 (140-148) mmol/L Potassium 4.0 (3.6-5.2) mmol/L Chloride 105 (100-108) mmol/L Carbon Dioxide 29 (21-32) mmol/L Anion Gap 9.1 (5.0-14.0) mmol/L BUN 16 (7-18) mg/dL Creatinine 0.5 L (0.6-1.0) mg/dL Est Cr Clr Drug Dosing 130.55 mL/min Estimated GFR (MDRD) > 60 (>60) Glucose 86 (74-106) mg/dL POC Glucose 89 132 H (74-106) mg/dL Calcium 8.4 L (8.5-10.1) mg/dL Med Orders - Current: Current Medications Acetaminophen (Acetaminophen 325 Mg Tab) 650 mg PO Q4H PRN PRN Reason: Pain (Mild 1-3)/fever Last Admin: 09/14/21 18:10 Dose: 650 mg Documented by: Albuterol (Albuterol 0.083% 2.5 Mg/3 Ml Neb Soln) 2.5 mg NEB Q4H PRN PRN Reason: Shortness Of Breath/wheezing Last Admin: 09/08/21 03:52 Dose: 2.5 mg Documented by: Albuterol (Albuterol 0.083% 2.5 Mg/3 Ml Neb Soln) 2.5 mg NEB QIDRT [facility] [place] Last Admin: 09/16/21 10:43 Dose: 2.5 mg Documented by: Alprazolam (Alprazolam 0.5 Mg Tab) 1 mg PO TID [facility] [place] Last Admin: 09/16/21 08:43 Dose: 1 mg Documented by: Calcium Carbonate/Glycine (Calcium Carbonate 500 Mg Tab.Chew) 1,000 mg PO Q2H PRN PRN Reason: Indigestion Citalopram Hydrobromide (Citalopram 20 Mg Tab) 40 mg PO DAILY [facility] [place] Last Admin: 09/16/21 08:03 Dose: 40 mg Documented by: Dextrose (Glucose Gel 15 Gm In 37.5 Gm Tube) 15 gm PO ONETIME PRN PRN Reason: Hypoglycemia Dextrose/Water (50% Dextrose In Water 50 Ml Syringe) 50 ml IV ONETIME PRN PRN Reason: Hypoglycemia Enoxaparin Sodium (Enoxaparin 40 Mg/0.4 Ml Syringe) 40 mg SUBCUT Q24H [facility] [place] Last Admin: 09/15/21 14:07 Dose: 40 mg Documented by: Estradiol (Estradiol 0.5 Mg Tab) 1.5 mg PO DAILY@0800 [facility] [place] Last Admin: 09/16/21 07:28 Dose: 1.5 mg Documented by: Gabapentin (Gabapentin 300 Mg Cap) 600 mg PO TID [facility] [place] Last Admin: 09/16/21 08:04 Dose: 600 mg Documented by: Ibuprofen (Ibuprofen 600 Mg Tab) 600 mg PO Q6H PRN PRN Reason: Pain Last Admin: 09/15/21 11:12 Dose: 600 mg Documented by: Insulin Human Lispro (Insulin Lispro 100 Unit/Ml 3 Ml Kwikpen) 0 unit SUBCUT QIDACANDBED [facility] [place]; Protocol Last Admin: 09/16/21 07:42 Dose: Not Given Documented by: Levofloxacin (Levofloxacin 250 Mg Tab) 250 mg PO Q24H [facility] [place] Last Admin: 09/15/21 14:06 Dose: 250 mg Documented by: Levofloxacin (Levofloxacin 500 Mg Tab) 500 mg PO Q24H [facility] [place] Last Admin: 09/15/21 14:06 Dose: 500 mg Documented by: Lisinopril (Lisinopril 2.5 Mg Tab) 2.5 mg PO BID [facility] [place] Last Admin: 09/15/21 22:02 Dose: 2.5 mg Documented by: Metformin HCl (Metformin 500 Mg Tab) 500 mg PO BIDMEALS [facility] [place] Last Admin: 09/16/21 07:29 Dose: 500 mg Documented by: Morphine Sulfate (Morphine 2 Mg/Ml Syringe) 2 mg IVPUSH Q2H PRN PRN Reason: Pain (severe 7-10) Last Admin: 09/11/21 01:28 Dose: 2 mg Documented by: Olanzapine (Olanzapine 5 Mg Tab) 15 mg PO BID@0800,1999 [facility] [place] Last Admin: 09/16/21 07:29 Dose: 15 mg Documented by: Ondansetron HCl (Ondansetron 4 Mg/2 Ml Sdv) 4 mg IV Q4H PRN PRN Reason: Nausea/Vomiting Last Admin: 09/08/21 03:57 Dose: 4 mg Documented by: Ondansetron HCl (Ondansetron 4 Mg Tab.Dis) 4 mg PO Q6H PRN PRN Reason: Nausea/Vomiting Oxycodone HCl (Oxycodone 5 Mg Tab) 5 mg PO Q4H PRN PRN Reason: Pain (moderate 4-6) Last Admin: 09/16/21 12:14 Dose: 5 mg Documented by: Pantoprazole Sodium (Pantoprazole 40 Mg Tab.Cr) 40 mg PO ACBREAKFAST [facility] [place] Last Admin: 09/16/21 07:28 Dose: 40 mg Documented by: Trulicity 0.75mg 0 each SUBCUT Th@09 [facility] [place] Last Admin: 09/11/21 08:07 Dose: 1 each Documented by: Clozapine 200mg Tab ((Ptom)) 0 each PO BEDTIME@1999 [facility] [place] Last Admin: 09/15/21 21:59 Dose: 200 each Documented by: Polyethylene Glycol (Polyethylene Glycol 3350 Powder 17 Gm Packet) 17 gm PO DAILY PRN PRN Reason: Constipation Polyethylene Glycol (Polyethylene Glycol 3350 Powder 17 Gm Packet) 17 gm PO DAILY [facility] [place] Last Admin: 09/16/21 08:03 Dose: 17 gm Documented by: Prednisone (Prednisone 20 Mg Tab) 20 mg PO WITHBREAKFAST [facility] [place] Last Admin: 09/16/21 07:27 Dose: 20 mg Documented by: Ropinirole HCl (Ropinirole 1 Mg Tab) 1 mg PO BEDTIME [facility] [place] Last Admin: 09/15/21 22:03 Dose: 1 mg Documented by: Sodium Chloride (Sodium Chloride 0.9% 10 Ml Syringe) 10 ml FLUSH ASDIRECTED PRN PRN Reason: Keep Vein Open Last Admin: 09/11/21 14:10 Dose: 10 ml Documented by: Tizanidine HCl (Tizanidine 2 Mg Tab) 2 mg PO TID@0800,1400,1999 [facility] [place] Last Admin: 09/16/21 07:31 Dose: 2 mg Documented by: Discontinued Medications Acetaminophen (Acetaminophen 500 Mg Tab) 1,000 mg PO Q6H PRN PRN Reason: Pain Last Admin: 09/07/21 09:24 Dose: 1,000 mg Documented by: Doxycycline Hyclate (Doxycycline 100 Mg Cap) 100 mg PO ONETIME ONE Stop: 09/07/21 09:01 Last Admin: 09/07/21 09:23 Dose: 100 mg Documented by: Furosemide (Furosemide 20 Mg/2 Ml Vial) 20 mg IVPUSH ONETIME ONE Stop: 09/08/21 11:03 Last Admin: 09/08/21 11:22 Dose: 20 mg Documented by: Furosemide (Furosemide 20 Mg/2 Ml Vial) 20 mg IVPUSH ONETIME ONE Stop: 09/09/21 09:01 Last Admin: 09/09/21 10:40 Dose: 20 mg Documented by: Furosemide (Furosemide 40 Mg/4 Ml Vial) 40 mg IVPUSH ONETIME ONE Stop: 09/09/21 16:01 Last Admin: 09/09/21 16:37 Dose: 40 mg Documented by: Furosemide (Furosemide 40 Mg/4 Ml Vial) 40 mg IVPUSH DAILY [facility] [place] Last Admin: 09/14/21 08:25 Dose: 40 mg Documented by: Furosemide (Furosemide 40 Mg/4 Ml Vial) 40 mg IVPUSH ONETIME ONE Stop: 09/10/21 17:05 Last Admin: 09/10/21 17:27 Dose: 40 mg Documented by: Furosemide (Furosemide 40 Mg/4 Ml Vial) 40 mg IVPUSH ONETIME ONE Stop: 09/11/21 16:31 Last Admin: 09/11/21 16:12 Dose: 40 mg Documented by: Furosemide (Furosemide 20 Mg/2 Ml Vial) 20 mg IVPUSH ONETIME ONE Stop: 09/14/21 11:11 Last Admin: 09/14/21 12:01 Dose: Not Given Documented by: Ceftriaxone Sodium 1 gm/ (Sodium Chloride) 50 mls @ 100 mls/hr IV ONETIME ONE Stop: 09/07/21 09:59 Last Admin: 09/07/21 09:23 Dose: 100 mls/hr Documented by: Sodium Chloride (Normal Saline) 1,000 mls @ 125 mls/hr IV ASDIRECTED [facility] [place] Last Admin: 09/08/21 04:03 Dose: 125 mls/hr Documented by: Doxycycline Hyclate 100 mg/ (Sodium Chloride) 100 mls @ 100 mls/hr IV Q12H [facility] [place] Last Admin: 09/09/21 08:06 Dose: 100 mls/hr Documented by: Ceftriaxone Sodium 1 gm/ (Sodium Chloride) 50 mls @ 100 mls/hr IV Q24H [facility] [place] Last Admin: 09/09/21 11:45 Dose: 100 mls/hr Documented by: Meropenem 1 gm/ Sodium (Chloride) 100 mls @ 200 mls/hr IV ONETIME ONE Stop: 09/08/21 04:39 Last Admin: 09/08/21 04:34 Dose: 200 mls/hr Documented by: Acetaminophen 1,000 mg/ Premix 100 mls @ 400 mls/hr IV NOW ONE Stop: 09/08/21 04:25 Last Admin: 09/08/21 04:19 Dose: 400 mls/hr Documented by: Levofloxacin/Dextrose 750 mg/ (Premix) 150 mls @ 100 mls/hr IV Q24H [facility] [place] Last Admin: 09/12/21 12:42 Dose: 100 mls/hr Documented by: Meropenem 1 gm/ Sodium (Chloride) 100 mls @ 200 mls/hr IV Q8H [facility] [place] Last Admin: 09/14/21 08:33 Dose: 200 mls/hr Documented by: Vancomycin HCl 1.75 gm/ Sodium (Chloride) 250 mls @ 150 mls/hr IV Q12H [facility] [place] Last Admin: 09/13/21 10:55 Dose: Not Given Documented by: Sodium Chloride (Normal Saline) 100 mls @ 3.5 mls/sec IV ASDIRECTED [facility] [place] Ibuprofen (Ibuprofen 400 Mg Tab) 400 mg PO Q6H PRN PRN Reason: Pain Last Admin: 09/08/21 08:50 Dose: 400 mg Documented by: Ibuprofen (Ibuprofen 400 Mg Tab) 600 mg PO Q6H PRN PRN Reason: Pain Last Admin: 09/08/21 14:57 Dose: 600 mg Documented by: Iopamidol (Iopamidol 755 Mg/Ml 100 Ml Bottle) 100 ml IV . DIRECTED [facility] [place] Stop: 09/11/21 10:30 Methylprednisolone Sodium Succinate (Methylprednisolone Sodium Succinate 125 Mg/2 Ml Sdv) 125 mg IVPUSH ONETIME ONE Stop: 09/08/21 04:33 Last Admin: 09/08/21 04:38 Dose: 125 mg Documented by: Methylprednisolone Sodium Succinate (Methylprednisolone Sodium Succinate 125 Mg/2 Ml Sdv) 125 mg IVPUSH ONETIME ONE Stop: 09/08/21 11:03 Last Admin: 09/08/21 11:22 Dose: 125 mg Documented by: Methylprednisolone Sodium Succinate (Methylprednisolone Sodium Succinate 40 Mg/1 Ml Sdv) 40 mg IVPUSH Q8H [facility] [place] Last Admin: 09/13/21 04:24 Dose: 40 mg Documented by: Morphine Sulfate (Morphine 2 Mg/Ml Syringe) 2 mg IVPUSH STAT STA Stop: 09/08/21 04:10 Last Admin: 09/08/21 04:29 Dose: 2 mg Documented by: Morphine Sulfate (Morphine 2 Mg/Ml Syringe) 2 mg IVPUSH ONETIME ONE Stop: 09/08/21 11:03 Last Admin: 09/08/21 11:23 Dose: 2 mg Documented by: Potassium Chloride (Potassium Chloride 20 Meq Tab.Er) 40 meq PO ONETIME ONE Stop: 09/08/21 10:51 Last Admin: 09/08/21 11:23 Dose: 40 meq Documented by: Potassium Chloride (Potassium Chloride 20 Meq Tab.Er) 40 meq PO ONETIME ONE Stop: 09/15/21 09:01 Last Admin: 09/15/21 08:50 Dose: 40 meq Documented by: Prednisone (Prednisone 20 Mg Tab) 20 mg PO ONETIME ONE Stop: 09/13/21 11:01 Last Admin: 09/13/21 13:10 Dose: 20 mg Documented by: Sodium Chloride (Sodium Chloride 0.9% 10 Ml Syringe) 10 ml FLUSH ASDIRECTED PRN PRN Reason: Keep Vein Open Last Admin: 09/07/21 07:58 Dose: 10 ml Documented by: Sodium Chloride (Sodium Chloride 0.9% 10 Ml Syringe) 10 ml FLUSH ONETIME ONE Stop: 09/11/21 09:47 Last Admin: 09/11/21 14:10 Dose: Not Given Documented by: - Exam General: Reports: Alert, Oriented, Cooperative, No Acute Distress Lungs: Reports: Clear to Auscultation, Normal Respiratory Effort, Decreased Breath Sounds Cardiovascular: Reports: Regular Rate, Regular Rhythm, No Murmurs GI/Abdominal Exam: Soft, Non-Tender, No Organomegaly, No Distention Extremities: Non-Tender, No Pedal Edema
[2021-09-16] MEDS: Levofloxacin 500 MG Tab PO SCH (12:42)
[2021-09-16] MEDS: Lisinopril 2.5 MG Tab PO SCH (12:42)
== END 2021-09-16 12:50 | disposition home or self-care (01) | DRG 193 ==
LOC: JP.ED 07:11 → JP.MS 11:37 → JP.ICU 09-10 10:09 → JP.MS 09-12 15:23
PROVIDERS: ADMIT Hospitalist; ATTEND Internal Medicine
DX: J02.9 Acute pharyngitis, unspecified (principal); J18.9 Pneumonia, unspecified organism; J96.01 Acute respiratory failure with hypoxia; E66.2 Morbid (severe) obesity with alveolar hypoventilation; Z68.41 Body mass index [BMI] 40.0-44.9, adult; F20.9 Schizophrenia, unspecified; G47.00 Insomnia, unspecified; E11.9 Type 2 diabetes mellitus without complications; E66.9 Obesity, unspecified; F20.2 Catatonic schizophrenia; Z87.01 Personal history of pneumonia (recurrent); H54.7 Unspecified visual loss; E78.00 Pure hypercholesterolemia, unspecified; I10 Essential (primary) hypertension; K21.9 Gastro-esophageal reflux disease without esophagitis; R32 Unspecified urinary incontinence; F31.9 Bipolar disorder, unspecified; Z20.822 Contact with and (suspected) exposure to COVID-19; E55.9 Vitamin D deficiency, unspecified; Z90.710 Acquired absence of both cervix and uterus; Z91.018 Allergy to other foods; Z88.8 Allergy status to other drugs, medicaments and biological substances; Z88.2 Allergy status to sulfonamides; Z79.84 Long term (current) use of oral hypoglycemic drugs; Z79.899 Other long term (current) drug therapy
CPT/HCPCS: 36415; 71046 ×2; 80048; 81001; 85027; 87040 ×2; 96365; 99285; A9270 ×2; J0696; U0002; 36600; 71045; 71045-26; 71250; 71250-26; 82803; 82947; 83605; 84145; 84484; 85025; 85379; 85651; 86140; 94640; 94762; 97110-GP; 97161-GP; 97530-GP; J0131; J1650; J1815; J1940; J1956; J2185; J2270; J2405; J2920; J2930; J3370; J3490; J7030; J7050; J7512

== ENCOUNTER 2021-09-26 08:11 | Inpatient (IN) | payer MEDICARE, MEDICAID ==
--- NOTE | 2021-09-26 08:20 | EDM.PDOC ---
ED HPI GENERAL MEDICAL PROBLEM - General Chief Complaint: Respiratory Problem Stated Complaint: [facility] Time Seen by Provider: 09/26/21 08:13 Source of Information: Reports: Patient, EMS History Limitations: Reports: No Limitations - History of Present Illness INITIAL COMMENTS - FREE TEXT/NARRATIVE: Shannan is a 41-year-old female presenting to the ED via [facility] from a intermediate in [place] with a complaint of "my lungs are on fire", body aches, increased shortness of breath, and hypoxia. The patient was recently hospitalized for community-acquired pneumonia that was diagnosed 20 days ago when she was discharged from the hospital last week. She has been in the intermediate on continuous oxygen via nasal cannula at 2 L/min but today awoke feeling like her lungs were inflamed experiencing more difficulty breathing, body aches, and generally feeling unwell. Patient is not vaccinated for COVID-19. She is not aware of anyone in the intermediate having COVID-19, but was recently hospitalized here up until last week for treatment of pneumonia. She does have a past medical history significant for schizophrenia, pickwickian syndrome, morbid obesity, diabetes, hypertension, and previously had ARDS. It is unclear whether the patient has had a fever but she does report having chills. Generalized Pain Score (Numeric/FACES): 7 - Related Data Allergies Allergy/AdvReac Type Severity Reaction Status Date / Time divalproex sodium Allergy Swelling Verified 09/07/21 07:19 [From Depakote] haloperidol Allergy Other Verified 09/07/21 07:19 pork derived (porcine) Allergy Other Verified 09/07/21 07:19 risperidone Allergy Other Verified 09/07/21 07:19 Sulfa (Sulfonamide Allergy Hives Verified 09/07/21 07:19 Antibiotics) Home Meds: Home Meds OLANZapine [Olanzapine] 15 mg PO BID 07/23/20 [History] Omeprazole 20 mg PO DAILY 07/23/20 [History] cloZAPine [Clozapine] 100 mg PO BEDTIME 07/23/20 [History] estradioL [Estradiol] 1.5 mg PO DAILY 07/23/20 [History] rOPINIRole [Requip] 1 mg PO BEDTIME 07/23/20 [History] tiZANidine 2 mg PO TID 07/23/20 [History] lisinopriL [Prinivil] 2.5 mg PO BID 11/25/20 [History] Dulaglutide [Trulicity] 0.75 mg SQ WEEKLY 07/15/21 [History] polyethylene glycoL 3350 [MiraLAX] 17 gm PO DAILY 07/15/21 [History] Ascorbic Acid [Vitamin C] 500 mg PO DAILY@0800 #30 tablet 07/19/21 [Rx] Cholecalciferol (Vitamin D3) [Vitamin D3] 25 mcg PO DAILY@0800 #30 tablet 07/19/21 [Rx] Multivit with Calcium,Iron,Min [One Daily Women's] 1 each PO DAILY #30 tablet 07/19/21 [Rx] *Quercetin 250 mg PO DAILY 09/07/21 [History] ALPRAZolam [Alprazolam] 1 mg PO TID 09/07/21 [History] Gabapentin [Neurontin] 800 mg PO TID 09/07/21 [History] Piroxicam 20 mg PO DAILY 09/07/21 [History] Zinc 50 mg PO DAILY 09/07/21 [History] metFORMIN [Glucophage XR] 1,000 mg PO DAILY 09/07/21 [History] Citalopram Hydrobromide [Celexa] 40 mg PO DAILY 09/13/21 [History] Past Medical History HEENT History: Reports: Impaired Vision Cardiovascular History: Reports: High Cholesterol, Hypertension Respiratory History: Reports: Intubation, Previous, Pneumonia, Recurrent Other Respiratory History: hospitalized with [id number] Gastrointestinal History: Reports: GERD Genitourinary History: Reports: Urinary Incontinence Musculoskeletal History: Reports: Other (See Below) Other Musculoskeletal History: plantar fascitis. chronic left shoulder painchronic right knee pain Psychiatric History: Reports: Bipolar, Depression, Psychosis, Schizophrenia, Suicide Attempt, Other (See Below) Other Psychiatric History: catatonia. insomnia Endocrine/Metabolic History: Reports: Diabetes, Type II, Obesity/BMI 30+, Vitamin D Deficiency Hematologic History: Reports: Other (See Below) Other Hematologic History: vitamin D deficency Dermatologic History: Reports: Other (See Below) Other Dermatologic History: rash - Infectious Disease History Infectious Disease History: Reports: None, Chicken Pox - Past Surgical History Head Surgeries/Procedures: Reports: None HEENT Surgical History: Reports: Tonsillectomy Respiratory Surgical History: Reports: Other (See Below) Other Respiratory Surgeries/Procedures: bronchoscopy Female Surgical History: Reports: Hysterectomy Musculoskeletal Surgical History: Reports: Arthroscopic Knee Social & Family History - Family History Family Medical History: No Pertinent Family History - Caffeine Use Caffeine Use: Reports: Soda ED ROS GENERAL - Review of Systems Review Of Systems: See Below Constitutional: Reports: Chills, Malaise, Weakness, Fatigue HEENT: Reports: No Symptoms Respiratory: Reports: Shortness of Breath, Cough. Denies: Sputum Cardiovascular: Reports: No Symptoms Endocrine: Reports: Fatigue GI/Abdominal: Reports: No Symptoms : Reports: No Symptoms Musculoskeletal: Reports: Muscle Pain Skin: Reports: No Symptoms Neurological: Reports: No Symptoms Psychiatric: Reports: Anxiety Hematologic/Lymphatic: Reports: No Symptoms Immunologic: Reports: No Symptoms ED EXAM, GENERAL - Physical Exam Exam: See Below Exam Limited By: No Limitations General Appearance: Alert, Anxious, Mild Distress, Obese Eye Exam: Bilateral Eye: EOMI, PERRL Throat/Mouth: Normal Inspection, Normal Oropharynx, Normal Voice, No Airway Compromise Head: Atraumatic, Normocephalic Neck: Normal Inspection, Supple Respiratory/Chest: No Accessory Muscle Use, Decreased Breath Sounds (Diminished breath sounds in the bases), Rhonchi (Scant diffuse rhonchi). No: Crackles, Rales, Wheezing Cardiovascular: Normal Peripheral Pulses, Regular Rate, Rhythm, No Murmur Peripheral Pulses: 2+: Radial (L) GI/Abdominal: Normal Bowel Sounds, Soft, Non-Tender Back Exam: Normal Inspection Extremities: Normal Inspection Neurological: Alert, Oriented, Normal Cognition, No Motor/Sensory Deficits Psychiatric: Normal Affect, Anxious Skin Exam: Warm, Dry, No Rash Course - Vital Signs Last Recorded V/S: Last Vital Signs Temp 36.6 C 09/26/21 08:21 Pulse 101 H 09/26/21 13:04 Resp 17 09/26/21 13:04 BP 105/65 09/26/21 13:04 Pulse Ox 92 L 09/26/21 13:04 - Orders/Labs/Meds Orders: Active Orders 24 hr Category Date Time Status Patient Status Manage Transfer [TRANSFER] Routine ADT 09/26/21 13:35 Active Blood Pressure Mgt: Sepsis [RC] Q15MX2 Care 09/26/21 09:16 Active Cardiac Monitoring [RC] CONTINUOUS Care 09/26/21 09:20 Active Oxygen Therapy, ED [RC] STAT Care 09/26/21 09:20 Active Pulse Oximetry [RC] ROUTINE Care 09/26/21 09:20 Active CULTURE BLOOD [BC] Urgent Lab 09/26/21 09:45 Received CULTURE BLOOD [BC] Urgent Lab 09/26/21 09:45 Received LACTIC ACID [CHEM] Routine Lab 09/26/21 12:54 Ordered Sodium Chloride 0.9% [Saline Flush] Med 09/26/21 09:16 Active 10 ml FLUSH ASDIRECTED PRN Blood Culture x2 Reflex Set [OM.PC] Urgent Oth 09/26/21 09:16 Ordered Isolation [COMM] Stat Ot 09/26/21 08:14 Ordered Saline Lock Insert [OM.PC] Stat Oth 09/26/21 09:16 Ordered Severe Sepsis Onset Time [OM.PC] Stat Ot 09/26/21 09:16 Ordered Resuscitation Status Routine Resus Stat 09/26/21 13:38 Ordered Medication Orders Sodium Chloride (Sodium Chloride 0.9% 10 Ml Syringe) 10 ml FLUSH ASDIRECTED PRN PRN Reason: Keep Vein Open Labs: Laboratory Tests 09/26/21 09/26/21 09/26/21 Range/Units 08:20 08:30 08:30 WBC 21.1 H (4.5-11.0) K/uL RBC 3.96 (3.30-5.50) M/uL Hgb 12.6 (12.0-15.0) g/dL Hct 37.1 (36.0-48.0) % MCV 94 (80-98) fL MCH 32 H (27-31) pg MCHC 34 (32-36) % Plt Count 380 (150-400) K/uL Neut % (Auto) 89.9 H (36-66) % Lymph % (Auto) 5.8 L (24-44) % [place] % (Auto) 3.8 (2-6) % Eos % (Auto) 0.4 L (2-4) % Baso % (Auto) 0.1 (0-1) % D-Dimer, Quantitative 485.51 (0.0-500.0) ng/mL Puncture Site ABG pH (7.350-7.450) ABG pCO2 (35.0-42.0) mmHg ABG pO2 (75.0-100.0) mmHg ABG HCO3 (22.0-26.0) mmol/L ABG Total CO2 (21.0-25.0) mmol/L ABG O2 Saturation (95.0-98.0) % ABG O2 Content (15.0-23.0) %vol ABG Base Excess mm/L ABG Hemoglobin (12.0-16.0) g/dL ABG Oxyhemoglobin % ABG Carboxyhemoglobin (0.0-1.6) % ABG Methemoglobin % Ramy Test O2 Delivery Device Oxygen Flow Rate L Sodium (140-148) mmol/L Potassium (3.6-5.2) mmol/L Chloride (100-108) mmol/L Carbon Dioxide (21-32) mmol/L Anion Gap (5.0-14.0) mmol/L BUN (7-18) mg/dL Creatinine (0.6-1.0) mg/dL Est Cr Clr Drug Dosing mL/min Estimated GFR (MDRD) (>60) Glucose (74-106) mg/dL Lactic Acid Calcium (8.5-10.1) mg/dL Ferritin (8-388) ng/ml Total Bilirubin (0.2-1.0) mg/dL AST (15-37) U/L ALT (12-78) U/L Alkaline Phosphatase (46-116) U/L Lactate Dehydrogenase (82-234) U/L C-Reactive Protein (0.0-0.3) mg/dL Total Protein (6.4-8.2) g/dL Albumin (3.4-5.0) g/dL Globulin (2.3-3.5) g/dL Albumin/Globulin Ratio (1.2-2.2) Procalcitonin ng/mL Urine Color (YELLOW) Urine Appearance (CLEAR) Urine pH (5.0-8.0) Ur Specific [place] (1.008-1.030) Urine Protein (NEGATIVE) mg/dL Urine Glucose (UA) (NEGATIVE) mg/dL Urine Ketones (NEGATIVE) mg/dL Urine Occult Blood (NEGATIVE) Urine Nitrite (NEGATIVE) Urine Bilirubin (NEGATIVE) Urine Urobilinogen (0.2-1.0) EU/dL Ur Leukocyte Esterase (NEGATIVE) Urine RBC (0-5) Urine WBC (0-5) Ur Epithelial Cells Amorphous Sediment Urine Bacteria Urine Mucus Influenza Type A RNA Negative (NEGATIVE) RSV RNA (INAAT) Negative (NEGATIVE) Influenza Type B RNA Negative (NEGATIVE) SARS-CoV-2 RNA (BAILEY) Negative (NEGATIVE) 09/26/21 09/26/21 09/26/21 Range/Units 08:30 08:30 08:30 WBC (4.5-11.0) K/uL RBC (3.30-5.50) M/uL Hgb (12.0-15.0) g/dL Hct (36.0-48.0) % MCV (80-98) fL MCH (27-31) pg MCHC (32-36) % Plt Count (150-400) K/uL Neut % (Auto) (36-66) % Lymph % (Auto) (24-44) % [place] % (Auto) (2-6) % Eos % (Auto) (2-4) % Baso % (Auto) (0-1) % D-Dimer, Quantitative (0.0-500.0) ng/mL Puncture Site ABG pH (7.350-7.450) ABG pCO2 (35.0-42.0) mmHg ABG pO2 (75.0-100.0) mmHg ABG HCO3 (22.0-26.0) mmol/L ABG Total CO2 (21.0-25.0) mmol/L ABG O2 Saturation (95.0-98.0) % ABG O2 Content (15.0-23.0) %vol ABG Base Excess mm/L ABG Hemoglobin (12.0-16.0) g/dL ABG Oxyhemoglobin % ABG Carboxyhemoglobin (0.0-1.6) % ABG Methemoglobin % Ramy Test O2 Delivery Device Oxygen Flow Rate L Sodium 142 (140-148) mmol/L Potassium 4.1 (3.6-5.2) mmol/L Chloride 102 (100-108) mmol/L Carbon Dioxide 25 (21-32) mmol/L Anion Gap 15.0 H (5.0-14.0) mmol/L BUN 9 (7-18) mg/dL Creatinine 0.8 D (0.6-1.0) mg/dL Est Cr Clr Drug Dosing 65.13 mL/min Estimated GFR (MDRD) > 60 (>60) Glucose 197 H (74-106) mg/dL Lactic Acid Cancelled Calcium 8.8 (8.5-10.1) mg/dL Ferritin 137 (8-388) ng/ml Total Bilirubin 0.5 (0.2-1.0) mg/dL AST 27 (15-37) U/L ALT 65 (12-78) U/L Alkaline Phosphatase 108 (46-116) U/L Lactate Dehydrogenase 178 (82-234) U/L C-Reactive Protein 2.52 H (0.0-0.3) mg/dL Total Protein 6.1 L (6.4-8.2) g/dL Albumin 3.0 L (3.4-5.0) g/dL Globulin 3.1 (2.3-3.5) g/dL Albumin/Globulin Ratio 1.0 L (1.2-2.2) Procalcitonin < 0.05 ng/mL Urine Color (YELLOW) Urine Appearance (CLEAR) Urine pH (5.0-8.0) Ur Specific [place] (1.008-1.030) Urine Protein (NEGATIVE) mg/dL Urine Glucose (UA) (NEGATIVE) mg/dL Urine Ketones (NEGATIVE) mg/dL Urine Occult Blood (NEGATIVE) Urine Nitrite (NEGATIVE) Urine Bilirubin (NEGATIVE) Urine Urobilinogen (0.2-1.0) EU/dL Ur Leukocyte Esterase (NEGATIVE) Urine RBC (0-5) Urine WBC (0-5) Ur Epithelial Cells Amorphous Sediment Urine Bacteria Urine Mucus Influenza Type A RNA (NEGATIVE) RSV RNA (INAAT) (NEGATIVE) Influenza Type B RNA (NEGATIVE) SARS-CoV-2 RNA (BAILEY) (NEGATIVE) 09/26/21 09/26/21 09/26/21 Range/Units 09:07 09:16 09:33 WBC (4.5-11.0) K/uL RBC (3.30-5.50) M/uL Hgb (12.0-15.0) g/dL Hct (36.0-48.0) % MCV (80-98) fL MCH (27-31) pg MCHC (32-36) % Plt Count (150-400) K/uL Neut % (Auto) (36-66) % Lymph % (Auto) (24-44) % [place] % (Auto) (2-6) % Eos % (Auto) (2-4) % Baso % (Auto) (0-1) % D-Dimer, Quantitative (0.0-500.0) ng/mL Puncture Site Rt brachial ABG pH 7.468 H (7.350-7.450) ABG pCO2 34.4 L (35.0-42.0) mmHg ABG pO2 87.5 (75.0-100.0) mmHg ABG HCO3 24.6 (22.0-26.0) mmol/L ABG Total CO2 21.8 (21.0-25.0) mmol/L ABG O2 Saturation 97.4 (95.0-98.0) % ABG O2 Content 16.9 (15.0-23.0) %vol ABG Base Excess 1.7 mm/L ABG Hemoglobin 12.7 (12.0-16.0) g/dL ABG Oxyhemoglobin 94.3 % ABG Carboxyhemoglobin 2.3 H (0.0-1.6) % ABG Methemoglobin 0.9 % Ramy Test Not performed O2 Delivery Device Nasal cannula Oxygen Flow Rate 4.0 L Sodium (140-148) mmol/L Potassium (3.6-5.2) mmol/L Chloride (100-108) mmol/L Carbon Dioxide (21-32) mmol/L Anion Gap (5.0-14.0) mmol/L BUN (7-18) mg/dL Creatinine (0.6-1.0) mg/dL Est Cr Clr Drug Dosing mL/min Estimated GFR (MDRD) (>60) Glucose (74-106) mg/dL Lactic Acid 4.3 H Calcium (8.5-10.1) mg/dL Ferritin (8-388) ng/ml Total Bilirubin (0.2-1.0) mg/dL AST (15-37) U/L ALT (12-78) U/L Alkaline Phosphatase (46-116) U/L Lactate Dehydrogenase (82-234) U/L C-Reactive Protein (0.0-0.3) mg/dL Total Protein (6.4-8.2) g/dL Albumin (3.4-5.0) g/dL Globulin (2.3-3.5) g/dL Albumin/Globulin Ratio (1.2-2.2) Procalcitonin ng/mL Urine Color Yellow (YELLOW) Urine Appearance Clear (CLEAR) Urine pH 6.0 (5.0-8.0) Ur Specific [place] 1.025 (1.008-1.030) Urine Protein Negative (NEGATIVE) mg/dL Urine Glucose (UA) Negative (NEGATIVE) mg/dL Urine Ketones Negative (NEGATIVE) mg/dL Urine Occult Blood Negative (NEGATIVE) Urine Nitrite Negative (NEGATIVE) Urine Bilirubin Negative (NEGATIVE) Urine Urobilinogen 0.2 (0.2-1.0) EU/dL Ur Leukocyte Esterase Negative (NEGATIVE) Urine RBC Not seen (0-5) Urine WBC Not seen (0-5) Ur Epithelial Cells Moderate Amorphous Sediment Not seen Urine Bacteria Rare Urine Mucus Moderate Influenza Type A RNA (NEGATIVE) RSV RNA (INAAT) (NEGATIVE) Influenza Type B RNA (NEGATIVE) SARS-CoV-2 RNA (BAILEY) (NEGATIVE) Meds: Medications Generic Name Dose Route Start Last Admin Trade Name Freq PRN Reason Stop Dose Admin Sodium Chloride 10 ml 09/26/21 09:16 Sodium Chloride 0.9% 10 Ml Syringe FLUSH ASDIRECTED PRN Keep Vein Open Discontinued Medications Generic Name Dose Route Start Last Admin Trade Name Freq PRN Reason Stop Dose Admin Acetaminophen 650 mg 09/26/21 10:06 09/26/21 10:26 Acetaminophen 325 Mg Tab PO 09/26/21 10:07 650 mg NOW ONE Administration Sodium Chloride 1,000 mls @ 999 mls/hr 09/26/21 09:16 Normal Saline IV 09/26/21 10:16 BOLUS ONE Protocol Vancomycin HCl 1.5 gm/ Sodium 250 mls @ 167 mls/hr 09/26/21 09:16 09/26/21 10:35 Chloride IV 09/26/21 10:45 167 mls/hr STAT ONE Administration Lactated Ringer's 2,500 mls @ 999 mls/hr 09/26/21 09:30 Ringers, Lactated IV BOLUS LESLEY Cefepime HCl 2 gm/ Sodium 50 mls @ 100 mls/hr 09/26/21 10:00 09/26/21 10:03 Chloride IV 09/26/21 10:29 100 mls/hr STAT ONE Administration - Radiology Interpretation Free Text/Narrative:: I reviewed the 1 view chest x-ray images as well as the report. The report is as follows: Impression: Persistent bilateral lower lobe infiltrates and groundglass opacities most consistent with a pneumonitis Dictated by Rikki Johnson MD on 09/26/2021 at 1016 I reviewed the images of the CT of the chest without contrast as well as the report. The report shows: Impression: There has been some resolution of bilateral lower lobe infiltrates. There is also been resolution of some of the left upper lobe groundglass opaci fication. There is some new right upper lobe patchy and groundglass opacification which may represent infiltrate or atelectasis or some residual pneumonitis. Slight increase in size of mediastinal lymph nodes is likely reactive. Dictated by Rikki Johnson MD on 09/26/2021 at 1020 - Re-Assessments/Exams Free Text/Narrative Re-Assessment/Exam: 09/26/21 09:24 I reviewed the patient's labs showing a leukocyte count of 21.1 with 89% neutrophils, hemoglobin of 12.6 with a hematocrit of 37.1 and a platelet count of 380,000. The comprehensive metabolic panel is unremarkable with a sodium 142, potassium 4.1, chloride of 102, bicarbonate of 25, BUN of 9 with a creatinine of 0.8 and a glucose of 197. The D-dimer is not elevated at 485.5. The venous lactate is elevated at 4.3 triggering a sepsis event. The patient was set up for IV hydration with 1 L of normal saline and 2-1/2 L of lactated Ringer's. Blood cultures have been obtained. A repeat lactic acid has been ordered for 4 hours which should be at the conclusion of the IV hydration, and the patient has been started on vancomycin 1500 mg IV and cefepime 2 g IV. 09/26/21 09:26 the patient is negative for Covid, influenza, and RSV. Her C- reactive protein is 2.52 but her procalcitonin is normal at less than 0.05. Patient will need to come back in for IV antibiotics. I discussed the case with Dr. Lima who recommended against giving the patient fluid bolus of normal saline and lactated Ringer's as she has very fluid sensitive and typically results in her developing ARDS. So for this reason as she has not shown any signs of septic shock, we will hold off on infusion. He did request that we get a CT of her chest to better visualize what the potential infection may be. 09/26/21 10:29 I reviewed the ABG of the patient on 4 L nasal cannula. Her pH is 7.468, PCO2 of 34.4, PO2 of 87.5, bicarbonate of 24.6 with a SPO2 of 94%. The CT of the chest without contrast shows some newly developed groundglass opacities in the right upper lobe but improvement in the bibasilar infiltrates as compared to previous studies. It is likely either an atypical pneumonia with a resistant organism or viral pneumonia. 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 Departure - Departure Time of Disposition: 13:05 Disposition: Admitted As Inpatient 64 Clinical Impression: Acute respiratory failure with hypoxia, Atypical pneumonia Sepsis Qualifiers: Sepsis type: sepsis due to unspecified organism Sepsis acute organ dysfunction status: with acute organ dysfunction Severe sepsis acute organ dysfunction type: acute respiratory failure Acute respiratory failure type: with hypoxia Severe sepsis shock status: without septic shock Qualified Code(s): A41.9 - Sepsis, unspecified organism - Discharge Information Referrals: PCP,None [Primary Care Provider] - Forms: ED Department Discharge Sepsis Event Note (ED) - Evaluation Current Stage of Sepsis: Sepsis Possible Source of Sepsis: Pulmonary - Focused Exam Sepsis Event Note Statement: Focused Sepsis Exam Completed Vital Signs: Vital Signs Temp Pulse Resp BP Pulse Ox Pulse Ox 09/26/21 13:04 101 H 17 105/65 92 L 09/26/21 12:05 105 H 20 101/63 93 L 09/26/21 10:57 100/61 09/26/21 10:47 94 21 H 104/69 93 L 09/26/21 10:42 104/69 09/26/21 10:27 94/64 09/26/21 10:12 111/74 09/26/21 10:00 109/68 09/26/21 08:26 92 L 09/26/21 08:21 36.6 C 95 18 103/64 95 Respiratory Effort Without Exertion: Dyspneic, Shallow, Other (see below) (Diminished breath sounds in the bases) Capillary Refill, Detail: Less than/Equal to (</=) 2 Seconds Pulse Description: 2+ Normal Peripheral Pulse Location: Radial Skin Exam (Focused Sepsis): Normal Turgor Date Exam was Performed: 09/26/21 Time Exam was Performed: 09:22 - Bedside Monitoring Fluid Bolus Goal: 30 mg/kg which comes out to 3.5 L of crystalloid. - Problem List & Annotations (1) Acute respiratory failure with hypoxia SNOMED Code(s): 98489005, 815325009 Code(s): J96.01 - ACUTE RESPIRATORY FAILURE WITH HYPOXIA Status: Acute Priority: High Current Visit: Yes (2) Sepsis SNOMED Code(s): 89221856 Code(s): A41.9 - SEPSIS, UNSPECIFIED ORGANISM Status: Acute Priority: High Current Visit: Yes Qualifiers: Sepsis type: sepsis due to unspecified organism Sepsis acute organ dysfunction status: with acute organ dysfunction Severe sepsis acute organ dysfunction type: acute respiratory failure Acute respiratory failure type: with hypoxia Severe sepsis shock status: without septic shock Qualified Code(s): A41.9 - Sepsis, unspecified organism; R65.20 - Severe sepsis without septic shock; J96.01 - Acute respiratory failure with hypoxia (3) Atypical pneumonia SNOMED Code(s): 123083314 Code(s): J18.9 - PNEUMONIA, UNSPECIFIED ORGANISM Status: Acute Priority: High Current Visit: Yes - Problem List Review Problem List Initiated/Reviewed/Updated: Yes - My Orders Last 24 Hours: My Active Orders 09/26/21 08:14 Isolation [COMM] Stat 09/26/21 09:16 Blood Pressure Mgt: Sepsis [RC] Q15MX2 Sodium Chloride 0.9% [Saline Flush] 10 ml FLUSH ASDIRECTED PRN Blood Culture x2 Reflex Set [OM.PC] Urgent Saline Lock Insert [OM.PC] Stat Severe Sepsis Onset Time [OM.PC] Stat 09/26/21 09:20 Cardiac Monitoring [RC] CONTINUOUS Oxygen Therapy, ED [RC] STAT Pulse Oximetry [RC] ROUTINE 09/26/21 09:45 CULTURE BLOOD [BC] Urgent CULTURE BLOOD [BC] Urgent 09/26/21 12:54 LACTIC ACID [CHEM] Routine - Assessment/Plan Last 24 Hours: My Active Orders 09/26/21 08:14 Isolation [COMM] Stat 09/26/21 09:16 Blood Pressure Mgt: Sepsis [RC] Q15MX2 Sodium Chloride 0.9% [Saline Flush] 10 ml FLUSH ASDIRECTED PRN Blood Culture x2 Reflex Set [OM.PC] Urgent Saline Lock Insert [OM.PC] Stat Severe Sepsis Onset Time [OM.PC] Stat 09/26/21 09:20 Cardiac Monitoring [RC] CONTINUOUS Oxygen Therapy, ED [RC] STAT Pulse Oximetry [RC] ROUTINE 09/26/21 09:45 CULTURE BLOOD [BC] Urgent CULTURE BLOOD [BC] Urgent 09/26/21 12:54 LACTIC ACID [CHEM] Routine
[2021-09-26 08:57] LABS: CORONAVIRUS COVID-19 NAA NEGATIVE (NEGATIVE)
[2021-09-26] MEDS ORDERED: Sodium Chloride 0.9% 1,000 ML IV ONE (09:16)
[2021-09-26] MEDS ORDERED: Sodium Chloride 0.9% 10 ML Syringe FLUSH PRN (09:16)
[2021-09-26] MEDS ORDERED: Cefepime 2 GM in Sodium Chloride 0.9% 50 ML IV ONE ×2 (09:16→10:00)
[2021-09-26] MEDS ORDERED: Lactated Ringers 2,500 ML IV SCH (09:30)
[2021-09-26] MEDS ORDERED: Acetaminophen 325 MG Tab PO ONE (10:06)
--- NOTE | 2021-09-26 10:19 | CR ---
CHEST: Portable 09/26/2021 at 9:02 AM CLINICAL HISTORY:History pneumonia, chest pain COMPARISON:CT 09/11/2021, chest x-ray 09/10/2021 FINDINGS: Heart size and pulmonary vascularity are normal. There is persistent patchy bilateral lower lobe infiltrates. The left-sided infiltrate has involuted since prior study. There is groundglass opacification in both lungs on the current study. IMPRESSION: Persistent bilateral lower lobe infiltrates and groundglass opacities most consistent with pneumonitis
--- NOTE | 2021-09-26 10:23 | CT ---
Chest wo Cont CLINICAL HISTORY: Respiratory failure, hypoxia TECHNIQUE: Transverse scans were obtained from the thoracic inlet to the lung bases without contrast. Auto dosage reduction in intervertebral reconstruction techniques were employed COMPARISONS: CT 09/11/2021 FINDINGS: Patient has persistent diffuse bilateral pulmonary infiltrates. Lower lobe infiltrates have improved since prior study. There is some new patchy opacity in the right upper lobe. Left upper lobe groundglass opacifications have resolved. The very minimal left effusion. There are some scattered lymph nodes in the mediastinum some of these have increased in size slightly since prior study. These are likely reactive nodes. IMPRESSION: There has been some resolution of bilateral lower lobe infiltrates. There is also been resolution of some left upper lobe groundglass opacification. There is some new right upper lobe patchy and groundglass opacification which may represent infiltrate or atelectasis or some residual pneumonitis. Slight increase in size of mediastinal lymph nodes which are likely reactive
--- NOTE | 2021-09-26 13:52 | PCM.HP.2 ---
H&P History of Present Illness - General Date of Service: 09/26/21 Admit Problem/Dx: Admission Diagnosis/Problem Admission Diagnosis/Problem Recurrent pneumonia Source of Information: Patient, Provider History Limitations: Reports: No Limitations - History of Present Illness Initial Comments - Free Text/Narative: CC: my lungs were burning HPI: Guerita presents to the emergency room today with burning in her chest, shortness of breath and oxygen saturations of 87% despite being on oxygen at home. She was recently hospitalized and treated for pneumonia/pneumonitis. She felt fairly well after hospital discharge and was slowly improving but still requiring oxygen. Over the past 24 hours she has developed diffuse myalgias, fatigue, shortness of breath as well as burning in her anterior central chest. She describes the pain as moderate. This is worse with deep breathing. No obvious triggers to make it worse otherwise. She has not taken anything to make it feel better. It feels just like her chest pain from last time she was in the hospital. She feels mildly short of breath but better with oxygen on. She is not aware of any fevers or chills. No cough. No sore throat or sinus congestion. No nausea, abdominal pain or diarrhea. No skin rashes. No obvious sick contacts that she reports but the [facility] reports that there has been a worker whose family was positive for Covid. Patient has not been vaccinated for Covid. Work-up in the emergency room revealed a white blood cell count of 21,000 and a mildly elevated lactic acid at just over 4. Vital signs are otherwise stable. Chest x-ray showed some very subtle diffuse changes. CT of the chest showed improving infiltrates on the left and also the right lower lung but increasing on the right upper lung. She has hypoxic and requiring supplemental oxygen. She did receive broad-spectrum antibiotics in the emergency room. She will be admitted for further management. Generalized Pain Score (Numeric/FACES): 7 - Related Data Allergies/Adverse Reactions: Allergies Allergy/AdvReac Type Severity Reaction Status Date / Time divalproex sodium Allergy Swelling Verified 09/07/21 07:19 [From Depakote] haloperidol Allergy Other Verified 09/07/21 07:19 pork derived (porcine) Allergy Other Verified 09/07/21 07:19 risperidone Allergy Other Verified 09/07/21 07:19 Sulfa (Sulfonamide Allergy Hives Verified 09/07/21 07:19 Antibiotics) Home Medications: Home Meds OLANZapine [Olanzapine] 15 mg PO BID 07/23/20 [History] Omeprazole 20 mg PO DAILY 07/23/20 [History] cloZAPine [Clozapine] 100 mg PO BEDTIME 07/23/20 [History] estradioL [Estradiol] 1.5 mg PO DAILY 07/23/20 [History] rOPINIRole [Requip] 1 mg PO BEDTIME 07/23/20 [History] tiZANidine 2 mg PO TID 07/23/20 [History] lisinopriL [Prinivil] 2.5 mg PO BID 11/25/20 [History] Dulaglutide [Trulicity] 0.75 mg SQ WEEKLY 07/15/21 [History] polyethylene glycoL 3350 [MiraLAX] 17 gm PO DAILY 07/15/21 [History] Ascorbic Acid [Vitamin C] 500 mg PO DAILY@0800 #30 tablet 07/19/21 [Rx] Cholecalciferol (Vitamin D3) [Vitamin D3] 25 mcg PO DAILY@0800 #30 tablet 07/19/21 [Rx] Multivit with Calcium,Iron,Min [One Daily Women's] 1 each PO DAILY #30 tablet 07/19/21 [Rx] *Quercetin 250 mg PO DAILY 09/07/21 [History] ALPRAZolam [Alprazolam] 1 mg PO TID 09/07/21 [History] Gabapentin [Neurontin] 800 mg PO TID 09/07/21 [History] Piroxicam 20 mg PO DAILY 09/07/21 [History] Zinc 50 mg PO DAILY 09/07/21 [History] metFORMIN [Glucophage XR] 1,000 mg PO DAILY 09/07/21 [History] Citalopram Hydrobromide [Celexa] 40 mg PO DAILY 09/13/21 [History] Past Medical History HEENT History: Reports: Impaired Vision Cardiovascular History: Reports: High Cholesterol, Hypertension Respiratory History: Reports: Intubation, Previous, Pneumonia, Recurrent Other Respiratory History: hospitalized with AFR111/2018 Gastrointestinal History: Reports: GERD Genitourinary History: Reports: Urinary Incontinence Musculoskeletal History: Reports: Other (See Below) Other Musculoskeletal History: plantar fascitis. chronic left shoulder painchronic right knee pain Psychiatric History: Reports: Bipolar, Depression, Psychosis, Schizophrenia, Suicide Attempt, Other (See Below) Other Psychiatric History: catatonia. insomnia Endocrine/Metabolic History: Reports: Diabetes, Type II, Obesity/BMI 30+, Vitamin D Deficiency Hematologic History: Reports: Other (See Below) Other Hematologic History: vitamin D deficency Dermatologic History: Reports: Other (See Below) Other Dermatologic History: rash - Infectious Disease History Infectious Disease History: Reports: None, Chicken Pox - Past Surgical History Head Surgeries/Procedures: Reports: None HEENT Surgical History: Reports: Tonsillectomy Respiratory Surgical History: Reports: Other (See Below) Other Respiratory Surgeries/Procedures: bronchoscopy Female Surgical History: Reports: Hysterectomy Musculoskeletal Surgical History: Reports: Arthroscopic Knee Social & Family History - Family History Family Medical History: No Pertinent Family History - Tobacco Use Tobacco Use Status *Q: Never Tobacco User - Caffeine Use Caffeine Use: Reports: Soda - Alcohol Use Alcohol Use History: No Alcohol Use in Last Twelve Months: No - Recreational Drug Use Recreational Drug Use: No Drug Use in Last 12 Months: No H&P Review of Systems - Review of Systems: Review Of Systems: See Below Free Text/Narrative: A complete 12 point review of systems was obtained. Pertinent positives and negatives are noted in the history of present illness. All other systems were reviewed and were negative except as noted. Exam - Exam Exam: See Below - Vital Signs Vital Signs: Last Vital Signs Temp 36.6 C 09/26/21 08:21 Pulse 101 H 09/26/21 13:04 Resp 17 09/26/21 13:04 BP 105/65 09/26/21 13:04 Pulse Ox 92 L 09/26/21 13:04 Weight: 117.934 kg - Exam Quality Assessment: Supplemental Oxygen General: Alert, Oriented, Cooperative. No: Mild Distress HEENT: Conjunctiva Clear, Mucosa Moist & [place]. No: Scleral Icterus Neck: Supple, Trachea Midline. No: Lymphadenopathy, JVD Lungs: Normal Respiratory Effort, Crackles (mild diffuse ) Cardiovascular: Regular Rate, Regular Rhythm. No: Systolic Murmur GI/Abdominal Exam: Normal Bowel Sounds, Soft, Non-Tender, No Distention Back Exam: Normal Inspection, Full Range of Motion Extremities: No Pedal Edema. No: Joint Swelling, Increased Warmth Peripheral Pulses: 2+: Dorsalis Pedis (L), Dorsalis Pedis (R) Skin: Warm, Dry. No: Rash Neuro Extensive - Mental Status: Alert, Oriented x3, Nl Response to Commands Neuro Extensive - Motor, Sensory, Reflexes: No: Dysarthria, Abnormal Motor, Tremor Psychiatric: Alert, Normal Affect - Patient Data Lab Results Last 24 hrs: Laboratory Results - last 24 hr 09/26/21 09/26/21 09/26/21 Range/Units 08:20 08:30 08:30 WBC 21.1 H (4.5-11.0) K/uL RBC 3.96 (3.30-5.50) M/uL Hgb 12.6 (12.0-15.0) g/dL Hct 37.1 (36.0-48.0) % MCV 94 (80-98) fL MCH 32 H (27-31) pg MCHC 34 (32-36) % Plt Count 380 (150-400) K/uL Neut % (Auto) 89.9 H (36-66) % Lymph % (Auto) 5.8 L (24-44) % [place] % (Auto) 3.8 (2-6) % Eos % (Auto) 0.4 L (2-4) % Baso % (Auto) 0.1 (0-1) % D-Dimer, Quantitative 485.51 (0.0-500.0) ng/mL Puncture Site ABG pH (7.350-7.450) ABG pCO2 (35.0-42.0) mmHg ABG pO2 (75.0-100.0) mmHg ABG HCO3 (22.0-26.0) mmol/L ABG Total CO2 (21.0-25.0) mmol/L ABG O2 Saturation (95.0-98.0) % ABG O2 Content (15.0-23.0) %vol ABG Base Excess mm/L ABG Hemoglobin (12.0-16.0) g/dL ABG Oxyhemoglobin % ABG Carboxyhemoglobin (0.0-1.6) % ABG Methemoglobin % Ramy Test O2 Delivery Device Oxygen Flow Rate L Sodium (140-148) mmol/L Potassium (3.6-5.2) mmol/L Chloride (100-108) mmol/L Carbon Dioxide (21-32) mmol/L Anion Gap (5.0-14.0) mmol/L BUN (7-18) mg/dL Creatinine (0.6-1.0) mg/dL Est Cr Clr Drug Dosing mL/min Estimated GFR (MDRD) (>60) Glucose (74-106) mg/dL Lactic Acid Calcium (8.5-10.1) mg/dL Ferritin (8-388) ng/ml Total Bilirubin (0.2-1.0) mg/dL AST (15-37) U/L ALT (12-78) U/L Alkaline Phosphatase (46-116) U/L Lactate Dehydrogenase (82-234) U/L C-Reactive Protein (0.0-0.3) mg/dL Total Protein (6.4-8.2) g/dL Albumin (3.4-5.0) g/dL Globulin (2.3-3.5) g/dL Albumin/Globulin Ratio (1.2-2.2) Procalcitonin ng/mL Urine Color (YELLOW) Urine Appearance (CLEAR) Urine pH (5.0-8.0) Ur Specific [place] (1.008-1.030) Urine Protein (NEGATIVE) mg/dL Urine Glucose (UA) (NEGATIVE) mg/dL Urine Ketones (NEGATIVE) mg/dL Urine Occult Blood (NEGATIVE) Urine Nitrite (NEGATIVE) Urine Bilirubin (NEGATIVE) Urine Urobilinogen (0.2-1.0) EU/dL Ur Leukocyte Esterase (NEGATIVE) Urine RBC (0-5) Urine WBC (0-5) Ur Epithelial Cells Amorphous Sediment Urine Bacteria Urine Mucus Influenza Type A RNA Negative (NEGATIVE) RSV RNA (INAAT) Negative (NEGATIVE) Influenza Type B RNA Negative (NEGATIVE) SARS-CoV-2 RNA (BAILEY) Negative (NEGATIVE) 09/26/21 09/26/21 09/26/21 Range/Units 08:30 08:30 08:30 WBC (4.5-11.0) K/uL RBC (3.30-5.50) M/uL Hgb (12.0-15.0) g/dL Hct (36.0-48.0) % MCV (80-98) fL MCH (27-31) pg MCHC (32-36) % Plt Count (150-400) K/uL Neut % (Auto) (36-66) % Lymph % (Auto) (24-44) % Hanson % (Auto) (2-6) % Eos % (Auto) (2-4) % Baso % (Auto) (0-1) % D-Dimer, Quantitative (0.0-500.0) ng/mL Puncture Site ABG pH (7.350-7.450) ABG pCO2 (35.0-42.0) mmHg ABG pO2 (75.0-100.0) mmHg ABG HCO3 (22.0-26.0) mmol/L ABG Total CO2 (21.0-25.0) mmol/L ABG O2 Saturation (95.0-98.0) % ABG O2 Content (15.0-23.0) %vol ABG Base Excess mm/L ABG Hemoglobin (12.0-16.0) g/dL ABG Oxyhemoglobin % ABG Carboxyhemoglobin (0.0-1.6) % ABG Methemoglobin % Ramy Test O2 Delivery Device Oxygen Flow Rate L Sodium 142 (140-148) mmol/L Potassium 4.1 (3.6-5.2) mmol/L Chloride 102 (100-108) mmol/L Carbon Dioxide 25 (21-32) mmol/L Anion Gap 15.0 H (5.0-14.0) mmol/L BUN 9 (7-18) mg/dL Creatinine 0.8 D (0.6-1.0) mg/dL Est Cr Clr Drug Dosing 65.13 mL/min Estimated GFR (MDRD) > 60 (>60) Glucose 197 H (74-106) mg/dL Lactic Acid Cancelled Calcium 8.8 (8.5-10.1) mg/dL Ferritin 137 (8-388) ng/ml Total Bilirubin 0.5 (0.2-1.0) mg/dL AST 27 (15-37) U/L ALT 65 (12-78) U/L Alkaline Phosphatase 108 (46-116) U/L Lactate Dehydrogenase 178 (82-234) U/L C-Reactive Protein 2.52 H (0.0-0.3) mg/dL Total Protein 6.1 L (6.4-8.2) g/dL Albumin 3.0 L (3.4-5.0) g/dL Globulin 3.1 (2.3-3.5) g/dL Albumin/Globulin Ratio 1.0 L (1.2-2.2) Procalcitonin < 0.05 ng/mL Urine Color (YELLOW) Urine Appearance (CLEAR) Urine pH (5.0-8.0) Ur Specific [place] (1.008-1.030) Urine Protein (NEGATIVE) mg/dL Urine Glucose (UA) (NEGATIVE) mg/dL Urine Ketones (NEGATIVE) mg/dL Urine Occult Blood (NEGATIVE) Urine Nitrite (NEGATIVE) Urine Bilirubin (NEGATIVE) Urine Urobilinogen (0.2-1.0) EU/dL Ur Leukocyte Esterase (NEGATIVE) Urine RBC (0-5) Urine WBC (0-5) Ur Epithelial Cells Amorphous Sediment Urine Bacteria Urine Mucus Influenza Type A RNA (NEGATIVE) RSV RNA (INAAT) (NEGATIVE) Influenza Type B RNA (NEGATIVE) SARS-CoV-2 RNA (BAILEY) (NEGATIVE) 09/26/21 09/26/21 09/26/21 Range/Units 09:07 09:16 09:33 WBC (4.5-11.0) K/uL RBC (3.30-5.50) M/uL Hgb (12.0-15.0) g/dL Hct (36.0-48.0) % MCV (80-98) fL MCH (27-31) pg MCHC (32-36) % Plt Count (150-400) K/uL Neut % (Auto) (36-66) % Lymph % (Auto) (24-44) % [place] % (Auto) (2-6) % Eos % (Auto) (2-4) % Baso % (Auto) (0-1) % D-Dimer, Quantitative (0.0-500.0) ng/mL Puncture Site Rt brachial ABG pH 7.468 H (7.350-7.450) ABG pCO2 34.4 L (35.0-42.0) mmHg ABG pO2 87.5 (75.0-100.0) mmHg ABG HCO3 24.6 (22.0-26.0) mmol/L ABG Total CO2 21.8 (21.0-25.0) mmol/L ABG O2 Saturation 97.4 (95.0-98.0) % ABG O2 Content 16.9 (15.0-23.0) %vol ABG Base Excess 1.7 mm/L ABG Hemoglobin 12.7 (12.0-16.0) g/dL ABG Oxyhemoglobin 94.3 % ABG Carboxyhemoglobin 2.3 H (0.0-1.6) % ABG Methemoglobin 0.9 % Ramy Test Not performed O2 Delivery Device Nasal cannula Oxygen Flow Rate 4.0 L Sodium (140-148) mmol/L Potassium (3.6-5.2) mmol/L Chloride (100-108) mmol/L Carbon Dioxide (21-32) mmol/L Anion Gap (5.0-14.0) mmol/L BUN (7-18) mg/dL Creatinine (0.6-1.0) mg/dL Est Cr Clr Drug Dosing mL/min Estimated GFR (MDRD) (>60) Glucose (74-106) mg/dL Lactic Acid 4.3 H Calcium (8.5-10.1) mg/dL Ferritin (8-388) ng/ml Total Bilirubin (0.2-1.0) mg/dL AST (15-37) U/L ALT (12-78) U/L Alkaline Phosphatase (46-116) U/L Lactate Dehydrogenase (82-234) U/L C-Reactive Protein (0.0-0.3) mg/dL Total Protein (6.4-8.2) g/dL Albumin (3.4-5.0) g/dL Globulin (2.3-3.5) g/dL Albumin/Globulin Ratio (1.2-2.2) Procalcitonin ng/mL Urine Color Yellow (YELLOW) Urine Appearance Clear (CLEAR) Urine pH 6.0 (5.0-8.0) Ur Specific [place] 1.025 (1.008-1.030) Urine Protein Negative (NEGATIVE) mg/dL Urine Glucose (UA) Negative (NEGATIVE) mg/dL Urine Ketones Negative (NEGATIVE) mg/dL Urine Occult Blood Negative (NEGATIVE) Urine Nitrite Negative (NEGATIVE) Urine Bilirubin Negative (NEGATIVE) Urine Urobilinogen 0.2 (0.2-1.0) EU/dL Ur Leukocyte Esterase Negative (NEGATIVE) Urine RBC Not seen (0-5) Urine WBC Not seen (0-5) Ur Epithelial Cells Moderate Amorphous Sediment Not seen Urine Bacteria Rare Urine Mucus Moderate Influenza Type A RNA (NEGATIVE) RSV RNA (INAAT) (NEGATIVE) Influenza Type B RNA (NEGATIVE) SARS-CoV-2 RNA (BAILEY) (NEGATIVE) Result Diagrams: 09/26/21 08:30 09/26/21 08:30 Imaging Impressions Last 24 hrs: All images below were personally reviewed - CXR-mild diffuse interstitial changes throughout but subtle. No obvious effusion or mass. Heart size is normal. CT chest-mild diffuse ground glass changes. there are improving on the left upper and lower and right lower but slightly increased right upper lung. tiny left effusion. No mass. Mildly enlarged mediastinal nodes that are probably reactive. Sepsis Event Note - Evaluation Sepsis Screening Result: No Definite Risk Current Stage of Sepsis: Sepsis Possible Source of Sepsis: Pulmonary - Focused Exam Sepsis Event Note Statement: Focused Sepsis Exam Completed Vital Signs: Vital Signs Temp Pulse Resp BP Pulse Ox Pulse Ox 09/26/21 13:04 101 H 17 105/65 92 L 09/26/21 12:05 105 H 20 101/63 93 L 09/26/21 10:57 100/61 09/26/21 10:47 94 21 H 104/69 93 L 09/26/21 10:42 104/69 09/26/21 10:27 94/64 09/26/21 10:12 111/74 09/26/21 10:00 109/68 09/26/21 08:26 92 L 09/26/21 08:21 36.6 C 95 18 103/64 95 Respiratory Effort Without Exertion: Other (see below) (normal) Heart Sounds: Other (see below) (normal) Capillary Refill, Detail: Less than/Equal to (</=) 2 Seconds Pulse Description: 2+ Normal Peripheral Pulse Location: Dorsalis Pedis Skin Exam (Focused Sepsis): Normal Turgor Date Exam was Performed: 09/26/21 Time Exam was Performed: 13:40 *Q Meaningful Use (ADM) - VTE Risk Assess *Q Each Risk Factor Represents 1 Point: Age 41 - 59 years, Obesity ( BMI > 25 kg/m2), Serious lung disease including pneumonia Total Score 1 Point Risk Factors: 3 Each Risk Factor Represents 2 Points: None Total Score 2 Point Risk Factors: 0 Each Risk Factor Represents 3 Points: None Total Score 3 Point Risk Factors: 0 Each Risk Factor Represents 5 Points: None Total Score 5 Point Risk Factors: 0 Venous Thromboembolism Risk Factor Score *Q: 3 - Problem List (1) Recurrent pneumonia SNOMED Code(s): 375711382 ICD Code: J18.9 - PNEUMONIA, UNSPECIFIED ORGANISM Status: Acute Current Visit: Yes (2) Acute respiratory failure with hypoxia SNOMED Code(s): 96071318, 351712354 ICD Code: J96.01 - ACUTE RESPIRATORY FAILURE WITH HYPOXIA Status: Acute Priority: High Current Visit: Yes (3) Sepsis SNOMED Code(s): 44735470 ICD Code: A41.9 - SEPSIS, UNSPECIFIED ORGANISM Status: Acute Priority: High Current Visit: Yes Qualifiers: Sepsis type: sepsis due to unspecified organism Sepsis acute organ dysfunction status: with acute organ dysfunction Severe sepsis acute organ dysfunction type: acute respiratory failure Acute respiratory failure type: with hypoxia Severe sepsis shock status: without septic shock Qualified Code(s): A41.9 - Sepsis, unspecified organism; R65.20 - Severe sepsis without septic shock; J96.01 - Acute respiratory failure with hypoxia (4) Schizophrenia, catatonic type SNOMED Code(s): 954064622 ICD Code: F20.2 - CATATONIC SCHIZOPHRENIA Status: Chronic Current Visit: No (5) Type 2 diabetes mellitus SNOMED Code(s): 37777531 ICD Code: E11.9 - TYPE 2 DIABETES MELLITUS WITHOUT COMPLICATIONS Status: Chronic Current Visit: No Qualifiers: Diabetes mellitus [facility] insulin use: without [facility] use Diabetes mellitus complication status: without complication Qualified Code(s): E11.9 - Type 2 diabetes mellitus without complications Problem List Initiated/Reviewed/Updated: Yes Orders Last 24hrs: Active Orders 24 hr Category Date Time Status Patient Status Manage Transfer [TRANSFER] Routine ADT 09/26/21 13:35 Ordered Blood Pressure Mgt: Sepsis [RC] [id number] Care 09/26/21 09:16 Active Cardiac Monitoring [RC] CONTINUOUS Care 09/26/21 09:20 Active Oxygen Therapy, ED [RC] STAT Care 09/26/21 09:20 Active Pulse Oximetry [RC] ROUTINE Care 09/26/21 09:20 Active CULTURE BLOOD [BC] Urgent Lab 09/26/21 09:45 Received CULTURE BLOOD [BC] Urgent Lab 09/26/21 09:45 Received LACTIC ACID [CHEM] Routine Lab 09/26/21 12:54 Ordered Sodium Chloride 0.9% [Saline Flush] Med 09/26/21 09:16 Active 10 ml FLUSH ASDIRECTED PRN Blood Culture x2 Reflex Set [OM.PC] Urgent Oth 09/26/21 09:16 Ordered Isolation [COMM] Stat Oth 09/26/21 08:14 Ordered Saline Lock Insert [OM.PC] Stat [facility] 09/26/21 09:16 Ordered Severe Sepsis Onset Time [OM.PC] [facility] 09/26/21 09:16 Ordered Resuscitation Status Routine Resus [facility] 09/26/21 13:38 Ordered Medication Orders Sodium Chloride (Sodium Chloride 0.9% 10 Ml Syringe) 10 ml FLUSH ASDIRECTED PRN PRN Reason: Keep Vein Open Assessment/Plan Comment:: ASSESSMENT AND PLAN - Recurrent pneumonia-complicated by acute respiratory failure with hypoxia. Imaging shows diffuse migratory groundglass changes. CRP is mildly elevated but procalcitonin is undetectable. She has recently had antibiotics. This could represent an atypical infection such as MAC or other atypical organism versus one of the interstitial pneumonia such as AIP, NSIP or UIP. She is a non- smoker. No obvious environmental or chemical trigger at home based on history. She does report waking up in the middle of the night drooling and aspiration is also a possibility. She is working with her psychiatrist to reduce her clozapine dose. Covid was negative as was influenza and RSV. -Empiric antibiotic coverage with levofloxacin and cefepime, de-escalate quickly unless cultures are positive -IV steroids -Symptomatic management of pain -Supplement oxygen as needed -Unable to complete fluid bolus for sepsis because the patient is extremely fluid sensitive and has gone into ARDS with fluid challenges in the past -Consultation with Dr. Anderson to consider bronchoscopy tomorrow morning -As needed nebulizers -Testing for autoimmune disease including BLANCA, anti-CCP Type 2 diabetes mellitus-she often develops hyperglycemia with steroids. -Continue home meds -Sliding scale insulin Schizophrenia-stable and doing well. -Home meds Obesity-BMI still over 50 Maintenance issues - -DVT prophylaxis-mechanical -GI prophylaxis-PPI -Nutrition-regular, n.p.o. after midnight -Welch catheter-not indicated CODE STATUS - full code Admission justification -this patient will be admitted for inpatient services and is medically appropriate meeting medical necessity for inpatient admission as outlined in my documentation. I reasonably expect the patient will require inpatient services that span a period time over 2 midnights. I reasonably expect this patient to be discharged or transferred within 96 hours [facility]. Disposition -I anticipate discharge home after the hospital stay Primary care physician -Dr. Crystal Lima M.D. - Mortality Measure Prognosis:: Good
[2021-09-26] MEDS ORDERED: Acetaminophen/HYDROcodone 325-5 MG Tab PO ONE (14:29)
[2021-09-26] MEDS ORDERED: Magnesium Hydroxide 400 MG/5 ML Susp 30 ML Cup PO PRN (15:20)
[2021-09-26] MEDS ORDERED: Albuterol 0.083% 2.5 MG/3 ML Neb Soln NEB PRN (15:20)
[2021-09-26] MEDS ORDERED: Ondansetron 4 MG/2 ML SDV IV PRN (15:20)
[2021-09-26] MEDS ORDERED: Ondansetron 4 MG Tab.DIS PO PRN (15:20)
[2021-09-26] MEDS ORDERED: LORazepam 2 MG/ML SDV IVPUSH PRN (15:20)
[2021-09-26] MEDS ORDERED: Morphine 2 MG/ML SYRINGE IVPUSH PRN (15:20)
[2021-09-26] MEDS ORDERED: methylPREDNISolone Sodium Succinate 125 MG/2 ML SDV IVPUSH ONE (16:00)
[2021-09-26] MEDS: Levofloxacin/Dextrose 5%-Water 750 MG in Premix Bag 1 BAG IV SCH (16:25)
[2021-09-26] MEDS: oxyCODONE 5 MG Tab PO PRN ×2 (16:41→21:12)
[2021-09-26] MEDS: Insulin Lispro 100 Unit/ML 3 ML KwikPen SUBCUT SCH ×2 (17:09→21:14)
[2021-09-26] MEDS: Cefepime 1 GM in Sodium Chloride 0.9% 50 ML IV SCH (19:04)
[2021-09-26] MEDS: OLANZapine 5 MG Tab PO SCH (20:54)
[2021-09-26] MEDS: ALPRAZolam 0.5 MG Tab PO SCH (20:55)
[2021-09-26] MEDS: CLOZAPINE 100 MG PO SCH (20:55)
[2021-09-26] MEDS: Lactobacillus Rhamnosus GG (Probiotic) Cap PO SCH (20:56)
[2021-09-26] MEDS: Gabapentin 400 MG Cap PO SCH (20:56)
[2021-09-26] MEDS: rOPINIRole 1 MG Tab PO SCH (20:57)
[2021-09-26] MEDS: methylPREDNISolone Sodium Succinate 125 MG/2 ML SDV IVPUSH SCH (21:04)
[2021-09-27] MEDS: Cefepime 1 GM in Sodium Chloride 0.9% 50 ML IV SCH ×3 (02:10→18:38)
[2021-09-27] MEDS: oxyCODONE 5 MG Tab PO PRN ×4 (04:34→21:40)
[2021-09-27] MEDS ORDERED: Ketamine 500 MG/5 ML MDV ONE (06:19)
[2021-09-27] MEDS ORDERED: Midazolam 1 MG/ML 2 ML SDV ONE (06:19)
[2021-09-27] MEDS ORDERED: Sodium Chloride 0.9% 10 ML ONE (06:20)
[2021-09-27] MEDS ORDERED: Lidocaine 4% Top Soln LTA 4 ML Syringe Kit ONE (06:24)
[2021-09-27] MEDS ORDERED: Glycopyrrolate 0.2 MG/ML 5 ML MDV ONE (06:24)
[2021-09-27] MEDS ORDERED: Propofol 200 MG/20 ML SDV ONE (06:24)
[2021-09-27] MEDS ORDERED: Ondansetron 4 MG/2 ML SDV ONE (06:24)
[2021-09-27] MEDS: methylPREDNISolone Sodium Succinate 125 MG/2 ML SDV IVPUSH SCH ×3 (06:40→21:42)
[2021-09-27] MEDS ORDERED: fentaNYL 100 MCG/2 ML SDV ONE (07:00)
[2021-09-27] MEDS ORDERED: Lidocaine 2% Viscous Solution 15 ML Cup ONE (07:17)
[2021-09-27] MEDS ORDERED: Lidocaine 4% Top Soln 50 ML Bottle ONE (07:17)
[2021-09-27] MEDS ORDERED: Lidocaine 2% Viscous Solution 15 ML Cup GTUBE ONE (07:40)
[2021-09-27] MEDS ORDERED: Lidocaine 4% Top Soln 50 ML Bottle PO ONE (07:41)
[2021-09-27] MEDS ORDERED: Dexamethasone 4 MG/ML SDV ONE (07:56)
[2021-09-27] MEDS: Insulin Lispro 100 Unit/ML 3 ML KwikPen SUBCUT SCH ×4 (08:41→21:30)
[2021-09-27] MEDS: Pantoprazole 40 MG Tab.CR PO SCH ×2 (08:49→11:55)
--- NOTE | 2021-09-27 09:00 | OR ---
DATE OF PROCEDURE: 09/27/2021 SURGEON: Pedro Luis Anderson MD PREOPERATIVE DIAGNOSIS: Persistent and recurring pneumonitis with increasing infiltrate in right upper lobe. POSTOPERATIVE DIAGNOSIS: Persistent and recurring pneumonitis with increasing infiltrate in right upper lobe. OPERATIVE PROCEDURES: Flexible bronchoscopy with: 1. Tracheobronchial washings (60420). 2. Bronchoalveolar lavage to right upper lobe (22227). ANESTHESIA: Topical plus IV sedation. INDICATIONS FOR PROCEDURE: Please see note dictated earlier today. DETAILS OF PROCEDURE: The patient was taken to the operating room, placed in a semi-sitting position. IV sedation was administered, after which some lidocaine was placed in the nasal passages and endotracheal injection of lidocaine per anesthesia. On initiation of the bronchoscopy, both the nasal passages were unable to be traversed. These were unexpectedly narrow bilaterally. Given this, with a bite block in place, the bronchoscope was passed orally and easily passed through the vocal cords. Vocal cord motion was symmetrical and there was no tracheal deviation nor obvious distortion of the tracheobronchial tree. There were no occluding endobronchial lesions identified. Diffusely, within the tracheobronchial tree, there is a slightly red watery secretion present. There is a diffuse quite bright red bronchitis in all areas of the lung. The right upper lobe segment of bronchi was distinctly somewhat more narrow and edematous than the remaining bronchial segments within the right or left lung, and they were quite strongly bright red in appearance. Following the initial tracheobronchial washings being obtained, the bronchoalveolar lavage in the right upper lobe was accomplished with an injection of 200 mL of saline. Two vials of return were obtained, this then being slightly bloody. At that point, the procedure was concluded. It should be noted that there were some occasional very scant fibrinous exudates within the tracheobronchial tree, likely related to the ongoing bronchial inflammation. At the conclusion of the procedure, the patient was more or less back to baseline with an O2 sats in the 89% range and looking reasonably comfortable. Pedro Luis Anderson MD /[id number]
--- NOTE | 2021-09-27 09:36 | PN ---
DATE OF SERVICE: 09/27/2021 This is a 41-year-old who has been plagued with ongoing pneumonitis for the past matter of weeks. The patient presented with worsening respiratory status yesterday and the CT scan showed resolution of ground glass opacity and pneumonitis in much of the lung but worsening of picture in the right upper lobe and without a diagnosis at this point in terms of any microbiologic issues. A flexible bronchoscopy was requested per Dr. Lima. The patient's medical history includes the pneumonia, acute respiratory failure recently, type 2 diabetes mellitus, and schizophrenia. The plan will be to proceed with flexible bronchoscopy later this morning. Potential risks of the procedure were reviewed with the patient and she wishes to proceed. Pedro Luis Anderson MD /[id number]
--- NOTE | 2021-09-27 11:51 | PCM.PN ---
- General Info Date of Service: 09/27/21 Subjective Update: No acute events overnight. No fevers. Oxygenation was stable overnight. She did have a bronchoscopy today that showed inflammation of the tracheobronchial tree. Bronchial washings were obtained and Gram stain did show gram-positive cocci but no fungal elements. She feels about the same today. Still a little short of breath. Appetite is good. She is slightly more hypoxic and a little tachycardic after the procedure this morning. No abdominal pain or nausea. Blood cultures are negative so far. Functional Status: Reports: Pain Controlled, Tolerating Diet - Review of Systems Pulmonary: Reports: Shortness of Breath - Patient Data Vitals - Most Recent: Last Vital Signs Temp 36.3 C 09/27/21 10:14 Pulse 110 H 09/27/21 11:01 Resp 18 09/27/21 11:40 BP 115/75 09/27/21 11:01 Pulse Ox 91 L 09/27/21 11:40 Weight - Most Recent: 117.934 kg I&O - Last 24 Hours: Intake & Output 09/26/21 09/27/21 09/27/21 22:59 06:59 14:59 Intake Total 850 100 550 Output Total 600 Balance 850 100 -50 Lab Results Last 24 Hours: Laboratory Results - last 24 hr 09/26/21 09/26/21 09/26/21 Range/Units 08:30 14:00 16:31 WBC (4.5-11.0) K/uL RBC (3.30-5.50) M/uL Hgb (12.0-15.0) g/dL Hct (36.0-48.0) % MCV (80-98) fL MCH (27-31) pg MCHC (32-36) % Plt Count (150-400) K/uL ESR 27 H (0-25) mm/hr Sodium (140-148) mmol/L Potassium (3.6-5.2) mmol/L Chloride (100-108) mmol/L Carbon Dioxide (21-32) mmol/L Anion Gap (5.0-14.0) mmol/L BUN (7-18) mg/dL Creatinine (0.6-1.0) mg/dL Est Cr Clr Drug Dosing mL/min Estimated GFR (MDRD) (>60) Glucose (74-106) mg/dL POC Glucose 103 (74-106) mg/dL Lactic Acid 2.7 H (0.4-2.0) mmol/L Calcium (8.5-10.1) mg/dL Procalcitonin ng/mL 09/26/21 09/27/21 09/27/21 Range/Units 21:08 04:15 04:15 WBC 16.4 H (4.5-11.0) K/uL RBC 4.00 (3.30-5.50) M/uL Hgb 12.8 (12.0-15.0) g/dL Hct 37.6 (36.0-48.0) % MCV 94 (80-98) fL MCH 32 H (27-31) pg MCHC 34 (32-36) % Plt Count 366 (150-400) K/uL ESR (0-25) mm/hr Sodium 141 (140-148) mmol/L Potassium 4.5 (3.6-5.2) mmol/L Chloride 103 (100-108) mmol/L Carbon Dioxide 24 (21-32) mmol/L Anion Gap 13.7 (5.0-14.0) mmol/L BUN 13 (7-18) mg/dL Creatinine 0.9 (0.6-1.0) mg/dL Est Cr Clr Drug Dosing 72.53 mL/min Estimated GFR (MDRD) > 60 (>60) Glucose 245 H (74-106) mg/dL POC Glucose 240 H (74-106) mg/dL Lactic Acid (0.4-2.0) mmol/L Calcium 8.9 (8.5-10.1) mg/dL Procalcitonin ng/mL 09/27/21 09/27/21 09/27/21 Range/Units 04:15 07:22 11:20 WBC (4.5-11.0) K/uL RBC (3.30-5.50) M/uL Hgb (12.0-15.0) g/dL Hct (36.0-48.0) % MCV (80-98) fL MCH (27-31) pg MCHC (32-36) % Plt Count (150-400) K/uL ESR (0-25) mm/hr Sodium (140-148) mmol/L Potassium (3.6-5.2) mmol/L Chloride (100-108) mmol/L Carbon Dioxide (21-32) mmol/L Anion Gap (5.0-14.0) mmol/L BUN (7-18) mg/dL Creatinine (0.6-1.0) mg/dL Est Cr Clr Drug Dosing mL/min Estimated GFR (MDRD) (>60) Glucose (74-106) mg/dL POC Glucose 249 H 206 H (74-106) mg/dL Lactic Acid (0.4-2.0) mmol/L Calcium (8.5-10.1) mg/dL Procalcitonin < 0.05 ng/mL Diego Results Last 24 Hours: Microbiology 09/26/21 09:45 Aerobic Blood Culture - Preliminary Blood - Arterial Line - Direct Stick NO GROWTH AFTER 1 DAY Anaerobic Blood Culture - Preliminary NO GROWTH AFTER 1 DAY 09/26/21 09:45 Aerobic Blood Culture - Preliminary Blood - Arm, Right NO GROWTH AFTER 1 DAY Anaerobic Blood Culture - Preliminary NO GROWTH AFTER 1 DAY 09/27/21 07:41 CARTER Preparation - Preliminary Other - Right Upper Lobe 09/27/21 07:40 CARTER Preparation - Preliminary Other - Right Upper Lobe 09/27/21 07:40 Gram Stain - Final Bronchial Alveolar Lavage - Right Upper Lobe 09/27/21 07:39 CARTER Preparation - Preliminary Other - Right Upper Lobe 09/27/21 07:41 Gram Stain - Final Bronchial Alveolar Lavage - Right Upper Lobe 09/27/21 07:39 Gram Stain - Final Bronchial Washings - Right Upper Lobe Med Orders - Current: Current Medications Acetaminophen (Acetaminophen 325 Mg Tab) 650 mg PO Q4H PRN PRN Reason: Pain (Mild 1-3)/fever Albuterol (Albuterol 0.083% 2.5 Mg/3 Ml Neb Soln) 2.5 mg NEB Q4H PRN PRN Reason: Shortness Of Breath/wheezing Alprazolam (Alprazolam 0.5 Mg Tab) 1 mg PO TID [facility] Last Admin: 09/26/21 20:55 Dose: Not Given Documented by: Ascorbic Acid (Ascorbic Acid 500 Mg Tab) 500 mg PO DAILY@0800 [facility] Cholecalciferol (Cholecalciferol (Vitamin D3) 25 Mcg Tab) 25 mcg PO DAILY@0800 [facility] Citalopram Hydrobromide (Citalopram 20 Mg Tab) 40 mg PO DAILY [facility] Estradiol (Estradiol 0.5 Mg Tab) 1.5 mg PO DAILY [facility] Gabapentin (Gabapentin 400 Mg Cap) 800 mg PO TID [facility] Last Admin: 09/26/21 20:56 Dose: 800 mg Documented by: Cefepime HCl 1 gm/ Sodium (Chloride) 50 mls @ 100 mls/hr IV Q8H [facility] Last Admin: 09/27/21 10:57 Dose: 100 mls/hr Documented by: Levofloxacin/Dextrose 750 mg/ (Premix) 150 mls @ 100 mls/hr IV Q24H [facility] Last Admin: 09/26/21 16:25 Dose: 100 mls/hr Documented by: Insulin Human Lispro (Insulin Lispro 100 Unit/Ml 3 Ml Kwikpen) 0 unit SUBCUT QIDACANDBED [facility]; Protocol Last Admin: 09/27/21 08:41 Dose: 2 units Documented by: Lactobacillus Rhamnosus (Lactobacillus Rhamnosus Gg (Probiotic) Cap) 1 cap PO BID [facility] Last Admin: 09/26/21 20:56 Dose: 1 cap Documented by: Lorazepam (Lorazepam 2 Mg/Ml Sdv) 0.5 mg IVPUSH Q4H PRN PRN Reason: Nausea/Vomiting Magnesium Hydroxide (Magnesium Hydroxide 400 Mg/5 Ml Susp 30 Ml Cup) 30 ml PO Q12H PRN PRN Reason: Constipation Metformin HCl (Metformin 500 Mg Tab) 500 mg PO BIDMEALS [facility] Methylprednisolone Sodium Succinate (Methylprednisolone Sodium Succinate 125 Mg/2 Ml Sdv) 62.5 mg IVPUSH Q8H [facility] Last Admin: 09/27/21 06:40 Dose: 62.5 mg Documented by: Morphine Sulfate (Morphine 2 Mg/Ml Syringe) 2 mg IVPUSH Q2H PRN PRN Reason: Pain (severe 7-10) (Dulaglutide [ Trulicity] 0.75 Mg/0 .5 Ml Pen.Injctr)* Pom* 0 mg SUBCUT Th@0900 [facility] Olanzapine (Olanzapine 5 Mg Tab) 15 mg PO BID [facility] Last Admin: 09/26/21 20:54 Dose: 15 mg Documented by: Ondansetron HCl (Ondansetron 4 Mg/2 Ml Sdv) 4 mg IV Q6H PRN PRN Reason: Nausea/Vomiting Ondansetron HCl (Ondansetron 4 Mg Tab.Dis) 4 mg PO Q6H PRN PRN Reason: Nausea able to take PO Oxycodone HCl (Oxycodone 5 Mg Tab) 5 - 10 mg PO Q4H PRN PRN Reason: Pain Last Admin: 09/27/21 04:34 Dose: 5 mg Documented by: Pantoprazole Sodium (Pantoprazole 40 Mg Tab.Cr) 40 mg PO ACBREAKFAST [facility] Last Admin: 09/27/21 08:49 Dose: Not Given Documented by: (Clozapine 100 Mg (Tablet) *Pt Own Med*) 0 each PO BEDTIME [facility] Last Admin: 09/26/21 20:55 Dose: 1 each Documented by: Polyethylene Glycol (Polyethylene Glycol 3350 Powder 17 Gm Packet) 17 gm PO DAILY [facility] Ropinirole HCl (Ropinirole 1 Mg Tab) 1 mg PO BEDTIME [facility] Last Admin: 09/26/21 20:57 Dose: 1 mg Documented by: Senna/Docusate Sodium (Docusate Sodium/Sennosides 50-8.6 Mg Tab) 1 tab PO BID PRN PRN Reason: Constipation Sodium Chloride (Sodium Chloride 0.9% 10 Ml Syringe) 10 ml FLUSH ASDIRECTED PRN PRN Reason: Keep Vein Open Zinc Gluconate (Zinc (Zinc Gluconate) 50 Mg Tab) 50 mg PO DAILY [facility] Discontinued Medications Acetaminophen (Acetaminophen 325 Mg Tab) 650 mg PO NOW ONE Stop: 09/26/21 10:07 Last Admin: 09/26/21 10:26 Dose: 650 mg Documented by: Hydrocodone Bitart/Acetaminophen (Acetaminophen/Hydrocodone 325-5 Mg Tab) 1 tab PO ONETIME ONE Stop: 09/26/21 14:30 Last Admin: 09/26/21 14:35 Dose: 1 tab Documented by: Dexamethasone (Dexamethasone 4 Mg/Ml Sdv) Confirm Administered Dose 4 mg .ROUTE .STK-MED ONE Stop: 09/27/21 07:57 Fentanyl (Fentanyl 100 Mcg/2 Ml Sdv) Confirm Administered Dose 100 mcg .ROUTE .STK-MED ONE Stop: 09/27/21 07:01 Glycopyrrolate (Glycopyrrolate 0.2 Mg/Ml 5 Ml Mdv) Confirm Administered Dose 1 mg .ROUTE .STK-MED ONE Stop: 09/27/21 06:25 Sodium Chloride (Normal Saline) 1,000 mls @ 999 mls/hr IV BOLUS ONE; Protocol Stop: 09/26/21 10:16 Last Admin: 09/26/21 18:56 Dose: Not Given Documented by: Vancomycin HCl 1.5 gm/ Sodium (Chloride) 250 mls @ 167 mls/hr IV STAT ONE Stop: 09/26/21 10:45 Last Admin: 09/26/21 10:35 Dose: 167 mls/hr Documented by: Lactated Ringer's (Ringers, Lactated) 2,500 mls @ 999 mls/hr IV BOLUS [place] Cefepime HCl 2 gm/ Sodium (Chloride) 50 mls @ 100 mls/hr IV STAT ONE Stop: 09/26/21 10:29 Last Admin: 09/26/21 10:03 Dose: 100 mls/hr Documented by: Sodium Chloride (Normal Saline) Confirm Administered Dose 10 mls @ as directed .ROUTE .STK-MED ONE Stop: 09/27/21 06:21 Ketamine HCl (Ketamine 500 Mg/5 Ml Mdv) Confirm Administered Dose 500 mg .ROUTE .STK-MED ONE Stop: 09/27/21 06:20 Lidocaine (Lidocaine 4% Top Soln Lta 4 Ml Syringe Kit) Confirm Administered Dose 4 ml .ROUTE .STK-MED ONE Stop: 09/27/21 06:25 Lidocaine HCl (Lidocaine 2% Viscous Solution 15 Ml Cup) Confirm Administered Dose 15 ml .ROUTE .STK-MED ONE Stop: 09/27/21 07:18 Lidocaine HCl (Lidocaine 4% Top Soln 50 Ml Bottle) Confirm Administered Dose 50 ml .ROUTE .STK-MED ONE Stop: 09/27/21 07:18 Lidocaine HCl (Lidocaine 2% Viscous Solution 15 Ml Cup) 10 ml GTUBE .STK-MED ONE Stop: 09/27/21 07:41 Last Admin: 09/27/21 07:40 Dose: 10 ml Documented by: Lidocaine HCl (Lidocaine 4% Top Soln 50 Ml Bottle) 50 ml PO .STK-MED ONE Stop: 09/27/21 07:42 Last Admin: 09/27/21 07:41 Dose: 50 ml Documented by: Methylprednisolone Sodium Succinate (Methylprednisolone Sodium Succinate 125 Mg/2 Ml Sdv) 125 mg IVPUSH ONETIME ONE Stop: 09/26/21 16:01 Last Admin: 09/26/21 16:25 Dose: 125 mg Documented by: Midazolam HCl (Midazolam 1 Mg/Ml 2 Ml Sdv) Confirm Administered Dose 2 mg .ROUTE .STK-MED ONE Stop: 09/27/21 06:20 Ondansetron HCl (Ondansetron 4 Mg/2 Ml Sdv) Confirm Administered Dose 4 mg .ROUTE .STK-MED ONE Stop: 09/27/21 06:25 Propofol (Propofol 200 Mg/20 Ml Sdv) Confirm Administered Dose 200 mg .ROUTE .STK-MED ONE Stop: 09/27/21 06:25 - Exam Quality Assessment: Supplemental Oxygen General: Alert, Oriented, Cooperative, No Acute Distress Lungs: Normal Respiratory Effort, Crackles (few right mid lung ) Cardiovascular: Regular Rate, Regular Rhythm GI/Abdominal Exam: Soft, No Distention Psy/Mental Status: Alert, Normal Affect - Patient Data Lab Results Last 24 hrs: Laboratory Results - last 24 hr 09/26/21 09/26/21 09/26/21 Range/Units 08:30 14:00 16:31 WBC (4.5-11.0) K/uL RBC (3.30-5.50) M/uL Hgb (12.0-15.0) g/dL Hct (36.0-48.0) % MCV (80-98) fL MCH (27-31) pg MCHC (32-36) % Plt Count (150-400) K/uL ESR 27 H (0-25) mm/hr Sodium (140-148) mmol/L Potassium (3.6-5.2) mmol/L Chloride (100-108) mmol/L Carbon Dioxide (21-32) mmol/L Anion Gap (5.0-14.0) mmol/L BUN (7-18) mg/dL Creatinine (0.6-1.0) mg/dL Est Cr Clr Drug Dosing mL/min Estimated GFR (MDRD) (>60) Glucose (74-106) mg/dL POC Glucose 103 (74-106) mg/dL Lactic Acid 2.7 H (0.4-2.0) mmol/L Calcium (8.5-10.1) mg/dL Procalcitonin ng/mL 09/26/21 09/27/21 09/27/21 Range/Units 21:08 04:15 04:15 WBC 16.4 H (4.5-11.0) K/uL RBC 4.00 (3.30-5.50) M/uL Hgb 12.8 (12.0-15.0) g/dL Hct 37.6 (36.0-48.0) % MCV 94 (80-98) fL MCH 32 H (27-31) pg MCHC 34 (32-36) % Plt Count 366 (150-400) K/uL ESR (0-25) mm/hr Sodium 141 (140-148) mmol/L Potassium 4.5 (3.6-5.2) mmol/L Chloride 103 (100-108) mmol/L Carbon Dioxide 24 (21-32) mmol/L Anion Gap 13.7 (5.0-14.0) mmol/L BUN 13 (7-18) mg/dL Creatinine 0.9 (0.6-1.0) mg/dL Est Cr Clr Drug Dosing 72.53 mL/min Estimated GFR (MDRD) > 60 (>60) Glucose 245 H (74-106) mg/dL POC Glucose 240 H (74-106) mg/dL Lactic Acid (0.4-2.0) mmol/L Calcium 8.9 (8.5-10.1) mg/dL Procalcitonin ng/mL 09/27/21 09/27/21 09/27/21 Range/Units 04:15 07:22 11:20 WBC (4.5-11.0) K/uL RBC (3.30-5.50) M/uL Hgb (12.0-15.0) g/dL Hct (36.0-48.0) % MCV (80-98) fL MCH (27-31) pg MCHC (32-36) % Plt Count (150-400) K/uL ESR (0-25) mm/hr Sodium (140-148) mmol/L Potassium (3.6-5.2) mmol/L Chloride (100-108) mmol/L Carbon Dioxide (21-32) mmol/L Anion Gap (5.0-14.0) mmol/L BUN (7-18) mg/dL Creatinine (0.6-1.0) mg/dL Est Cr Clr Drug Dosing mL/min Estimated GFR (MDRD) (>60) Glucose (74-106) mg/dL POC Glucose 249 H 206 H (74-106) mg/dL Lactic Acid (0.4-2.0) mmol/L Calcium (8.5-10.1) mg/dL Procalcitonin < 0.05 ng/mL Result Diagrams: 09/27/21 04:15 09/27/21 04:15 Diego Results Last 24 hrs: Microbiology 09/26/21 09:45 Aerobic Blood Culture - Preliminary Blood - Arterial Line - Direct Stick NO GROWTH AFTER 1 DAY Anaerobic Blood Culture - Preliminary NO GROWTH AFTER 1 DAY 09/26/21 09:45 Aerobic Blood Culture - Preliminary Blood - Arm, Right NO GROWTH AFTER 1 DAY Anaerobic Blood Culture - Preliminary NO GROWTH AFTER 1 DAY 09/27/21 07:41 CARTER Preparation - Preliminary Other - Right Upper Lobe 09/27/21 07:40 CARTER Preparation - Preliminary Other - Right Upper Lobe 09/27/21 07:40 Gram Stain - Final Bronchial Alveolar Lavage - Right Upper Lobe 09/27/21 07:39 CARTER Preparation - Preliminary Other - Right Upper Lobe 09/27/21 07:41 Gram Stain - Final Bronchial Alveolar Lavage - Right Upper Lobe 09/27/21 07:39 Gram Stain - Final Bronchial Washings - Right Upper Lobe Sepsis Event Note - Evaluation Sepsis Screening Result: No Definite Risk - Focused Exam Vital Signs: Vital Signs Temp Pulse Resp BP Pulse Ox 09/27/21 11:40 18 91 L 09/27/21 11:01 110 H 18 115/75 93 L 09/27/21 10:14 36.3 C 112 H 20 123/84 93 L 09/27/21 09:45 110 H 18 122/74 93 L 09/27/21 09:15 111 H 16 130/87 93 L 09/27/21 09:00 111 H 16 140/87 93 L 09/27/21 08:46 110 H 16 149/89 H 93 L 09/27/21 08:35 36.1 C 113 H 16 146/88 H 92 L 09/27/21 08:20 36.2 C 116 H 20 150/100 H 92 L 09/27/21 08:15 117 H 20 148/97 H 93 L 09/27/21 08:10 36.2 C 123 H 20 131/104 H 88 L 09/27/21 08:05 123 H 18 122/87 89 L 09/27/21 08:00 36.2 C 122 H 18 117/94 H 93 L 09/27/21 02:14 36.2 C 101 H 18 112/73 92 L - Problem List & Annotations (1) Recurrent pneumonia SNOMED Code(s): 315309904 Code(s): J18.9 - PNEUMONIA, UNSPECIFIED ORGANISM Status: Acute Current Visit: Yes (2) Acute respiratory failure with hypoxia SNOMED Code(s): 72549912, 148355821 Code(s): J96.01 - ACUTE RESPIRATORY FAILURE WITH HYPOXIA Status: Acute Priority: High Current Visit: Yes (3) Sepsis SNOMED Code(s): 73120385 Code(s): A41.9 - SEPSIS, UNSPECIFIED ORGANISM Status: Acute Priority: Hi gh Current Visit: Yes Qualifiers: Sepsis type: sepsis due to unspecified organism Sepsis acute organ dysfunction status: with acute organ dysfunction Severe sepsis acute organ dysfunction type: acute respiratory failure Acute respiratory failure type: with hypoxia Severe sepsis shock status: without septic shock Qualified Code(s): A41.9 - Sepsis, unspecified organism; R65.20 - Severe sepsis without septic shock; J96.01 - Acute respiratory failure with hypoxia (4) Schizophrenia, catatonic type SNOMED Code(s): 806908697 Code(s): F20.2 - CATATONIC SCHIZOPHRENIA Status: Chronic Current Visit: No (5) Type 2 diabetes mellitus SNOMED Code(s): 45338959 Code(s): E11.9 - TYPE 2 DIABETES MELLITUS WITHOUT COMPLICATIONS Status: Chronic Current Visit: No Qualifiers: Diabetes mellitus nursing home insulin use: without nursing home use Diabetes mellitus complication status: without complication Qualified Code(s): E11.9 - Type 2 diabetes mellitus without complications - Problem List Review Problem List Initiated/Reviewed/Updated: Yes - My Orders Last 24 Hours: My Active Orders 09/26/21 13:38 Resuscitation Status Routine 09/26/21 15:20 Acetaminophen [TylenoL] 650 mg PO Q4H PRN Albuterol [Proventil Neb Soln] 2.5 mg NEB Q4H PRN Docusate Sodium/Sennosides [Senna Plus] 1 tab PO BID PRN LORazepam [Ativan] 0.5 mg IVPUSH Q4H PRN Magnesium Hydroxide [Milk of Magnesia] 30 ml PO Q12H PRN Morphine 2 mg IVPUSH Q2H PRN Ondansetron [Zofran ODT] 4 mg PO Q6H PRN Ondansetron [Zofran] 4 mg IV Q6H PRN oxyCODONE 5 - 10 mg PO Q4H PRN 09/26/21 15:20 Patient Status [ADT] Routine Antiembolic Devices [RC] .Routine Communication Order [RC] PRN Communication Order [RC] PRN Diabetes Education [RC] Click to Edit Intake and Output [RC] QSHIFT Notify Provider Consults [RC] ASDIRECTED Notify Provider Vital Signs [RC] ASDIRECTED Notify Provider [RC] PRN Oxygen Therapy [RC] PRN RT Aerosol Therapy [RC] ASDIRECTED Up With Assistance [RC] ASDIRECTED VTE/DVT Education [RC] Per Unit Routine Vital Signs [RC] Q4H Consult to Physician [CONS] Routine Sequential Compression Device [OM.PC] Routine 09/26/21 16:00 Levofloxacin/Dextrose 5%-Water [Levaquin in D5W 750 MG/150 ML] 750 mg Premix Bag 1 bag IV Q24H 09/26/21 17:00 Insulin Lispro [HumaLOG] See Protocol SUBCUT QIDACANDBED 09/26/21 18:00 Cefepime [Maxipime] 1 gm Sodium Chloride 0.9% [Normal Saline AdvBag] 50 ml IV Q8H 09/26/21 21:00 ALPRAZolam [Xanax] 1 mg PO TID Gabapentin [Neurontin] 800 mg PO TID Lactobacillus Rhamnosus GG [Culturelle] 1 cap PO BID OLANZapine [ZyPREXA] 15 mg PO BID Patient's Own Medication [Ptom] 0 each PO BEDTIME rOPINIRole [Requip] 1 mg PO BEDTIME 09/26/21 22:00 methylPREDNISolone Sod Succ [Solu-MEDROL] 62.5 mg IVPUSH Q8H 09/27/21 04:15 BLANCA W/REFLEX Routine ANTI-CCP AB, IGG/IGA Routine 09/27/21 07:30 Pantoprazole [ProTONIX] 40 mg PO ACBREAKFAST 09/27/21 07:39 ACID FAST SMEAR+CULTURE W/RFLX Routine CULTURE FUNGAL [MYC] Routine CULTURE RESPIRATORY + SMEAR [RM] Routine CATRER PREP [MYC] Routine 09/27/21 07:40 ACID FAST SMEAR+CULTURE W/RFLX Routine CULTURE FUNGAL [MYC] Routine CULTURE RESPIRATORY + SMEAR [RM] Routine CARTER PREP [MYC] Routine 09/27/21 07:41 ACID FAST SMEAR+CULTURE W/RFLX Routine CULTURE FUNGAL [MYC] Routine CULTURE RESPIRATORY + SMEAR [RM] Routine CARTER PREP [MYC] Routine 09/27/21 08:00 Ascorbic Acid [Vitamin C] 500 mg PO DAILY@0800 Cholecalciferol (Vitamin D3) [Vitamin D3] 25 mcg PO DAILY@0800 metFORMIN [Glucophage] 500 mg PO BIDMEALS 09/27/21 09:00 Citalopram [Celexa] 40 mg PO DAILY Zinc Gluconate [Zinc] 50 mg PO DAILY estradioL 1.5 mg PO DAILY polyethylene glycoL 3350 [MiraLAX] 17 gm PO DAILY 09/27/21 Lunch Consistent Carbohydrate Diet [DIET] Linezolid [Zyvox] 600 mg Premix Bag 1 bag IV Q12H 09/27/21 16:30 GLUCOSE POC LAB TO COLLECT JPM [POC] QIDACANDBED 09/27/21 21:00 GLUCOSE POC LAB TO COLLECT JPM [POC] QIDACANDBED 09/28/21 05:00 BASIC METABOLIC PANEL,BMP [CHEM] Timed CBC W/O DIFF,HEMOGRAM [HEME] Timed (1) 09/28/21 07:30 GLUCOSE POC LAB TO COLLECT JPM [POC] QIDACANDBED 09/28/21 11:30 GLUCOSE POC LAB TO COLLECT JPM [POC] QIDACANDBED 09/28/21 16:30 GLUCOSE POC LAB TO COLLECT JPM [POC] QIDACANDBED 09/28/21 21:00 GLUCOSE POC LAB TO COLLECT JPM [POC] QIDACANDBED 09/29/21 07:30 GLUCOSE POC LAB TO COLLECT JPM [POC] QIDACANDBED 09/29/21 11:30 GLUCOSE POC LAB TO COLLECT JPM [POC] QIDACANDBED 09/29/21 16:30 GLUCOSE POC LAB TO COLLECT JPM [POC] QIDACANDBED 09/29/21 21:00 GLUCOSE POC LAB TO COLLECT JPM [POC] QIDACANDBED 09/30/21 07:30 GLUCOSE POC LAB TO COLLECT JPM [POC] QIDACANDBED 09/30/21 11:30 GLUCOSE POC LAB TO COLLECT JPM [POC] QIDACANDBED 09/30/21 16:30 GLUCOSE POC LAB TO COLLECT JPM [POC] QIDACANDBED 09/30/21 21:00 GLUCOSE POC LAB TO COLLECT JPM [POC] QIDACANDBED 10/01/21 07:30 GLUCOSE POC LAB TO COLLECT JPM [POC] QIDACANDBED 10/01/21 11:30 GLUCOSE POC LAB TO COLLECT JPM [POC] QIDACANDBED 10/01/21 16:30 GLUCOSE POC LAB TO COLLECT JPM [POC] QIDACANDBED 10/01/21 21:00 GLUCOSE POC LAB TO COLLECT JPM [POC] QIDACANDBED 10/02/21 09:00 Dulaglutide [Trulicity] 0 mg SUBCUT Th@0900 - Plan Plan:: ASSESSMENT AND PLAN - Recurrent pneumonia-complicated by acute respiratory failure with hypoxia. Bronchoscopy revealed inflammation of the tracheobronchial tree. Bronchial washings revealed gram-positive cocci. White count a little better today. -Empiric antibiotic coverage with levofloxacin and cefepime and linezolid until cultures are final -IV steroids, transition to prednisone tomorrow -Symptomatic management of pain -Supplement oxygen as needed -Follow-up cultures -As needed nebulizers -Follow-up testing for autoimmune disease including BLANCA, anti-CCP Type 2 diabetes mellitus-she often develops hyperglycemia with steroids. -Continue home meds -Sliding scale insulin Schizophrenia-stable and doing well. -Home meds Obesity-BMI still over 50 Maintenance issues - -DVT prophylaxis-mechanical -GI prophylaxis-PPI -Nutrition-consistent carbohydrates Disposition -I anticipate discharge home after the hospital stay Primary care physician -Dr. Crystal Lima M.D.
[2021-09-27] MEDS: Estradiol 0.5 MG Tab PO SCH (11:53)
[2021-09-27] MEDS: Gabapentin 400 MG Cap PO SCH ×3 (11:53→21:33)
[2021-09-27] MEDS: Zinc (Zinc Gluconate) 50 MG Tab PO SCH (11:53)
[2021-09-27] MEDS: Cholecalciferol (Vitamin D3) 25 MCG Tab PO SCH (11:54)
[2021-09-27] MEDS: Citalopram 20 MG Tab PO SCH (11:54)
[2021-09-27] MEDS: OLANZapine 5 MG Tab PO SCH ×2 (11:54→21:41)
[2021-09-27] MEDS: Ascorbic Acid 500 MG Tab PO SCH (11:55)
[2021-09-27] MEDS: Polyethylene Glycol 3350 Powder 17 GM Packet PO SCH ×2 (11:56→21:44)
[2021-09-27] MEDS: Lactobacillus Rhamnosus GG (Probiotic) Cap PO SCH ×2 (11:56→21:33)
[2021-09-27] MEDS: metFORMIN 500 MG Tab PO SCH ×2 (11:56→16:47)
[2021-09-27] MEDS: ALPRAZolam 0.5 MG Tab PO SCH ×3 (12:01→21:41)
[2021-09-27] MEDS: Linezolid 600 MG in Premix Bag 1 BAG IV SCH (13:26)
[2021-09-27] MEDS: Levofloxacin/Dextrose 5%-Water 750 MG in Premix Bag 1 BAG IV SCH (16:47)
[2021-09-27] MEDS: CLOZAPINE 100 MG PO SCH (21:33)
[2021-09-27] MEDS: rOPINIRole 1 MG Tab PO SCH (21:34)
[2021-09-28] MEDS: Linezolid 600 MG in Premix Bag 1 BAG IV SCH ×3 (00:05→23:15)
[2021-09-28] MEDS: Cefepime 1 GM in Sodium Chloride 0.9% 50 ML IV SCH ×3 (01:55→17:07)
[2021-09-28] MEDS: oxyCODONE 5 MG Tab PO PRN ×5 (04:25→21:58)
[2021-09-28] MEDS: methylPREDNISolone Sodium Succinate 125 MG/2 ML SDV IVPUSH SCH (05:33)
[2021-09-28] MEDS: Insulin Lispro 100 Unit/ML 3 ML KwikPen SUBCUT SCH ×4 (07:44→21:43)
[2021-09-28] MEDS: Cholecalciferol (Vitamin D3) 25 MCG Tab PO SCH (07:47)
[2021-09-28] MEDS: metFORMIN 500 MG Tab PO SCH ×2 (07:47→17:10)
[2021-09-28] MEDS: Ascorbic Acid 500 MG Tab PO SCH (07:47)
[2021-09-28] MEDS: Zinc (Zinc Gluconate) 50 MG Tab PO SCH ×2 (07:47→09:25)
[2021-09-28] MEDS: Gabapentin 400 MG Cap PO SCH ×3 (09:13→21:43)
[2021-09-28] MEDS: Lactobacillus Rhamnosus GG (Probiotic) Cap PO SCH ×2 (09:14→21:43)
[2021-09-28] MEDS: Citalopram 20 MG Tab PO SCH (09:14)
[2021-09-28] MEDS: Pantoprazole 40 MG Tab.CR PO SCH (09:14)
[2021-09-28] MEDS: Polyethylene Glycol 3350 Powder 17 GM Packet PO SCH ×2 (09:14→21:42)
[2021-09-28] MEDS: Estradiol 0.5 MG Tab PO SCH (09:14)
[2021-09-28] MEDS: Acetaminophen 325 MG Tab PO PRN ×2 (09:24→16:21)
[2021-09-28] MEDS: ALPRAZolam 0.5 MG Tab PO SCH ×3 (09:24→21:42)
[2021-09-28] MEDS: OLANZapine 5 MG Tab PO SCH ×2 (09:25→21:44)
--- NOTE | 2021-09-28 10:28 | PCM.PN ---
- General Info Date of Service: 09/28/21 Subjective Update: No acute events overnight. Supplemental oxygen requirement has been decreasing and she is down to 2 L this morning. She feels about the same as at the time of admission. Still having some burning chest pain especially with respiration. No abdominal pain or nausea. Cultures from the bronchoscopy yesterday are growing oral contamination. She does have 1 blood culture that is growing gram- positive rods. Functional Status: Reports: Pain Controlled, Tolerating Diet - Review of Systems General: Denies: Fever Pulmonary: Reports: Shortness of Breath, Pleuritic Chest Pain - Patient Data Vitals - Most Recent: Last Vital Signs Temp 37.0 C 09/28/21 07:26 Pulse 110 H 09/28/21 07:26 Resp 18 09/28/21 07:26 BP 119/71 09/28/21 07:26 Pulse Ox 93 L 09/28/21 07:26 Weight - Most Recent: 117.934 kg I&O - Last 24 Hours: Intake & Output 09/27/21 09/28/21 09/28/21 22:59 06:59 14:59 Intake Total 1450 470 Output Total 1500 850 Balance -50 -380 Lab Results Last 24 Hours: Laboratory Results - last 24 hr 09/27/21 09/27/21 09/27/21 Range/Units 11: 16:29 20:49 WBC (4.5-11.0) K/uL RBC (3.30-5.50) M/uL Hgb (12.0-15.0) g/dL Hct (36.0-48.0) % MCV (80-98) fL MCH (27-31) pg MCHC (32-36) % Plt Count (150-400) K/uL Sodium (140-148) mmol/L Potassium (3.6-5.2) mmol/L Chloride (100-108) mmol/L Carbon Dioxide (21-32) mmol/L Anion Gap (5.0-14.0) mmol/L BUN (7-18) mg/dL Creatinine (0.6-1.0) mg/dL Est Cr Clr Drug Dosing mL/min Estimated GFR (MDRD) (>60) Glucose (74-106) mg/dL POC Glucose 206 H 244 H 208 H (74-106) mg/dL Calcium (8.5-10.1) mg/dL 09/28/21 09/28/21 09/28/21 Range/Units 04:10 04:10 07:24 WBC 22.0 H (4.5-11.0) K/uL RBC 3.82 (3.30-5.50) M/uL Hgb 12.5 (12.0-15.0) g/dL Hct 36.6 (36.0-48.0) % MCV 96 (80-98) fL MCH 33 H (27-31) pg MCHC 34 (32-36) % Plt Count 205 (150-400) K/uL Sodium 144 (140-148) mmol/L Potassium 4.3 (3.6-5.2) mmol/L Chloride 105 (100-108) mmol/L Carbon Dioxide 26 (21-32) mmol/L Anion Gap 13.4 (5.0-14.0) mmol/L BUN 13 (7-18) mg/dL Creatinine 0.9 (0.6-1.0) mg/dL Est Cr Clr Drug Dosing 72.53 mL/min Estimated GFR (MDRD) > 60 (>60) Glucose 211 H (74-106) mg/dL POC Glucose 212 H (74-106) mg/dL Calcium 8.6 (8.5-10.1) mg/dL Diego Results Last 24 Hours: Microbiology 09/26/21 09:45 Aerobic Blood Culture - Preliminary Blood - Arterial Line - Direct Stick NO GROWTH AFTER 2 DAYS Anaerobic Blood Culture - Preliminary NO GROWTH AFTER 2 DAYS 09/26/21 09:45 Aerobic Blood Culture - Preliminary Blood - Arm, Right Anaerobic Blood Culture - Preliminary NO GROWTH AFTER 2 DAYS 09/27/21 07:41 CARTER Preparation - Final Other - Right Upper Lobe 09/27/21 07:40 CARTER Preparation - Final Other - Right Upper Lobe 09/27/21 07:39 CARTER Preparation - Final Other - Right Upper Lobe 09/27/21 07:41 Gram Stain - Final Bronchial Alveolar Lavage - Right Upper Lobe Respiratory Culture - Preliminary ORAL CONTAMINATION 1 DAY 09/27/21 07:40 Gram Stain - Final Bronchial Alveolar Lavage - Right Upper Lobe Respiratory Culture - Preliminary ORAL CONTAMINATION 1 DAY 09/27/21 07:39 Gram Stain - Final Bronchial Washings - Right Upper Lobe Respiratory Culture - Preliminary ORAL CONTAMINATION 1 DAY Med Orders - Current: Current Medications Acetaminophen (Acetaminophen 325 Mg Tab) 650 mg PO Q4H PRN PRN Reason: Pain (Mild 1-3)/fever Last Admin: 09/28/21 09:24 Dose: 650 mg Documented by: Albuterol (Albuterol 0.083% 2.5 Mg/3 Ml Neb Soln) 2.5 mg NEB Q4H PRN PRN Reason: Shortness Of Breath/wheezing Alprazolam (Alprazolam 0.5 Mg Tab) 1 mg PO TID [facility] Last Admin: 09/28/21 09:24 Dose: 1 mg Documented by: Ascorbic Acid (Ascorbic Acid 500 Mg Tab) 500 mg PO DAILY@0800 [facility] Last Admin: 09/28/21 07:47 Dose: 500 mg Documented by: Cholecalciferol (Cholecalciferol (Vitamin D3) 25 Mcg Tab) 25 mcg PO DAILY@0800 [facility] Last Admin: 09/28/21 07:47 Dose: 25 mcg Documented by: Citalopram Hydrobromide (Citalopram 20 Mg Tab) 40 mg PO DAILY [facility] Last Admin: 09/28/21 09:14 Dose: 40 mg Documented by: Estradiol (Estradiol 0.5 Mg Tab) 1.5 mg PO DAILY [facility] Last Admin: 09/28/21 09:14 Dose: 1.5 mg Documented by: Gabapentin (Gabapentin 400 Mg Cap) 800 mg PO TID [facility] Last Admin: 09/28/21 09:13 Dose: 800 mg Documented by: Cefepime HCl 1 gm/ Sodium (Chloride) 50 mls @ 100 mls/hr IV Q8H [facility] Last Admin: 09/28/21 09:26 Dose: 100 mls/hr Documented by: Levofloxacin/Dextrose 750 mg/ (Premix) 150 mls @ 100 mls/hr IV Q24H [facility] Last Admin: 09/27/21 16:47 Dose: 100 mls/hr Documented by: Linezolid 600 mg/ Premix 300 mls @ 300 mls/hr IV Q12H [facility] Last Admin: 09/28/21 00:05 Dose: 300 mls/hr Documented by: Insulin Human Lispro (Insulin Lispro 100 Unit/Ml 3 Ml Kwikpen) 0 unit SUBCUT QIDACANDBED [facility]; Protocol Last Admin: 09/28/21 07:44 Dose: 2 units Documented by: Lactobacillus Rhamnosus (Lactobacillus Rhamnosus Gg (Probiotic) Cap) 1 cap PO BID [facility] Last Admin: 09/28/21 09:14 Dose: 1 cap Documented by: Lorazepam (Lorazepam 2 Mg/Ml Sdv) 0.5 mg IVPUSH Q4H PRN PRN Reason: Nausea/Vomiting Magnesium Hydroxide (Magnesium Hydroxide 400 Mg/5 Ml Susp 30 Ml Cup) 30 ml PO Q12H PRN PRN Reason: Constipation Metformin HCl (Metformin 500 Mg Tab) 500 mg PO BIDMEALS [facility] Last Admin: 09/28/21 07:47 Dose: 500 mg Documented by: Morphine Sulfate (Morphine 2 Mg/Ml Syringe) 2 mg IVPUSH Q2H PRN PRN Reason: Pain (severe 7-10) (Dulaglutide [ Trulicity] 0.75 Mg/0 .5 Ml Pen.Injctr)* Pom* 0 mg SUBCUT Th@0900 [facility] Olanzapine (Olanzapine 5 Mg Tab) 15 mg PO BID [facility] Last Admin: 09/28/21 09:25 Dose: 15 mg Documented by: Ondansetron HCl (Ondansetron 4 Mg/2 Ml Sdv) 4 mg IV Q6H PRN PRN Reason: Nausea/Vomiting Ondansetron HCl (Ondansetron 4 Mg Tab.Dis) 4 mg PO Q6H PRN PRN Reason: Nausea able to take PO Oxycodone HCl (Oxycodone 5 Mg Tab) 5 - 10 mg PO Q4H PRN PRN Reason: Pain Last Admin: 09/28/21 08:36 Dose: 5 mg Documented by: Pantoprazole Sodium (Pantoprazole 40 Mg Tab.Cr) 40 mg PO ACBREAKFAST [facility] Last Admin: 09/28/21 09:14 Dose: 40 mg Documented by: (Clozapine 100 Mg (Tablet) *Pt Own Med*) 0 each PO BEDTIME [facility] Last Admin: 09/27/21 21:33 Dose: 1 each Documented by: Polyethylene Glycol (Polyethylene Glycol 3350 Powder 17 Gm Packet) 17 gm PO DAILY [facility] Last Admin: 09/28/21 09:14 Dose: Not Given Documented by: Ropinirole HCl (Ropinirole 1 Mg Tab) 1 mg PO BEDTIME [facility] Last Admin: 09/27/21 21:34 Dose: 1 mg Documented by: Senna/Docusate Sodium (Docusate Sodium/Sennosides 50-8.6 Mg Tab) 1 tab PO BID PRN PRN Reason: Constipation Sodium Chloride (Sodium Chloride 0.9% 10 Ml Syringe) 10 ml FLUSH ASDIRECTED PRN PRN Reason: Keep Vein Open Zinc Gluconate (Zinc (Zinc Gluconate) 50 Mg Tab) 50 mg PO DAILY [facility] Last Admin: 09/28/21 09:25 Dose: Not Given Documented by: Discontinued Medications Acetaminophen (Acetaminophen 325 Mg Tab) 650 mg PO NOW ONE Stop: 09/26/21 10:07 Last Admin: 09/26/21 10:26 Dose: 650 mg Documented by: Hydrocodone Bitart/Acetaminophen (Acetaminophen/Hydrocodone 325-5 Mg Tab) 1 tab PO ONETIME ONE Stop: 09/26/21 14:30 Last Admin: 09/26/21 14:35 Dose: 1 tab Documented by: Dexamethasone (Dexamethasone 4 Mg/Ml Sdv) Confirm Administered Dose 4 mg .ROUTE .STK-MED ONE Stop: 09/27/21 07:57 Fentanyl (Fentanyl 100 Mcg/2 Ml Sdv) Confirm Administered Dose 100 mcg .ROUTE .STK-MED ONE Stop: 09/27/21 07:01 Glycopyrrolate (Glycopyrrolate 0.2 Mg/Ml 5 Ml Mdv) Confirm Administered Dose 1 mg .ROUTE .STK-MED ONE Stop: 09/27/21 06:25 Sodium Chloride (Normal Saline) 1,000 mls @ 999 mls/hr IV BOLUS ONE; Protocol Stop: 09/26/21 10:16 Last Admin: 09/26/21 18:56 Dose: Not Given Documented by: Vancomycin HCl 1.5 gm/ Sodium (Chloride) 250 mls @ 167 mls/hr IV STAT ONE Stop: 09/26/21 10:45 Last Admin: 09/26/21 10:35 Dose: 167 mls/hr Documented by: Lactated Ringer's (Ringers, Lactated) 2,500 mls @ 999 mls/hr IV BOLUS [facility] Cefepime HCl 2 gm/ Sodium (Chloride) 50 mls @ 100 mls/hr IV STAT ONE Stop: 09/26/21 10:29 Last Admin: 09/26/21 10:03 Dose: 100 mls/hr Documented by: Sodium Chloride (Normal Saline) Confirm Administered Dose 10 mls @ as directed .ROUTE .STK-MED ONE Stop: 09/27/21 06:21 Ketamine HCl (Ketamine 500 Mg/5 Ml Mdv) Confirm Administered Dose 500 mg .ROUTE .STK-MED ONE Stop: 09/27/21 06:20 Lidocaine (Lidocaine 4% Top Soln Lta 4 Ml Syringe Kit) Confirm Administered Dose 4 ml .ROUTE .STK-MED ONE Stop: 09/27/21 06:25 Lidocaine HCl (Lidocaine 2% Viscous Solution 15 Ml Cup) Confirm Administered Dose 15 ml .ROUTE .STK-MED ONE Stop: 09/27/21 07:18 Lidocaine HCl (Lidocaine 4% Top Soln 50 Ml Bottle) Confirm Administered Dose 50 ml .ROUTE .STK-MED ONE Stop: 09/27/21 07:18 Lidocaine HCl (Lidocaine 2% Viscous Solution 15 Ml Cup) 10 ml GTUBE .STK-MED ONE Stop: 09/27/21 07:41 Last Admin: 09/27/21 07:40 Dose: 10 ml Documented by: Lidocaine HCl (Lidocaine 4% Top Soln 50 Ml Bottle) 50 ml PO .STK-MED ONE Stop: 09/27/21 07:42 Last Admin: 09/27/21 07:41 Dose: 50 ml Documented by: Methylprednisolone Sodium Succinate (Methylprednisolone Sodium Succinate 125 Mg/2 Ml Sdv) 125 mg IVPUSH ONETIME ONE Stop: 09/26/21 16:01 Last Admin: 09/26/21 16:25 Dose: 125 mg Documented by: Methylprednisolone Sodium Succinate (Methylprednisolone Sodium Succinate 125 Mg/2 Ml Sdv) 62.5 mg IVPUSH Q8H [facility] Last Admin: 09/28/21 05:33 Dose: 62.5 mg Documented by: Midazolam HCl (Midazolam 1 Mg/Ml 2 Ml Sdv) Confirm Administered Dose 2 mg .ROUTE .ST-MED ONE Stop: 09/27/21 06:20 Ondansetron HCl (Ondansetron 4 Mg/2 Ml Sdv) Confirm Administered Dose 4 mg .ROUTE .STK-MED ONE Stop: 09/27/21 06:25 Propofol (Propofol 200 Mg/20 Ml Sdv) Confirm Administered Dose 200 mg .ROUTE .STK-MED ONE Stop: 09/27/21 06:25 - Exam Quality Assessment: Supplemental Oxygen General: Alert, Oriented, Cooperative, No Acute Distress Lungs: Normal Respiratory Effort, Crackles (few right lung base) Cardiovascular: Regular Rate, Regular Rhythm GI/Abdominal Exam: Soft, No Distention Extremities: No Pedal Edema. No: Increased Warmth Skin: Warm, Dry Psy/Mental Status: Alert, Normal Affect - Patient Data Lab Results Last 24 hrs: Laboratory Results - last 24 hr 09/27/21 09/27/21 09/27/21 Range/Units 11:20 16:29 20:49 WBC (4.5-11.0) K/uL RBC (3.30-5.50) M/uL Hgb (12.0-15.0) g/dL Hct (36.0-48.0) % MCV (80-98) fL MCH (27-31) pg MCHC (32-36) % Plt Count (150-400) K/uL Sodium (140-148) mmol/L Potassium (3.6-5.2) mmol/L Chloride (100-108) mmol/L Carbon Dioxide (21-32) mmol/L Anion Gap (5.0-14.0) mmol/L BUN (7-18) mg/dL Creatinine (0.6-1.0) mg/dL Est Cr Clr Drug Dosing mL/min Estimated GFR (MDRD) (>60) Glucose (74-106) mg/dL POC Glucose 206 H 244 H 208 H (74-106) mg/dL Calcium (8.5-10.1) mg/dL 09/28/21 09/28/21 09/28/21 Range/Units 04:10 04:10 07:24 WBC 22.0 H (4.5-11.0) K/uL RBC 3.82 (3.30-5.50) M/uL Hgb 12.5 (12.0-15.0) g/dL Hct 36.6 (36.0-48.0) % MCV 96 (80-98) fL MCH 33 H (27-31) pg MCHC 34 (32-36) % Plt Count 205 (150-400) K/uL Sodium 144 (140-148) mmol/L Potassium 4.3 (3.6-5.2) mmol/L Chloride 105 (100-108) mmol/L Carbon Dioxide 26 (21-32) mmol/L Anion Gap 13.4 (5.0-14.0) mmol/L BUN 13 (7-18) mg/dL Creatinine 0.9 (0.6-1.0) mg/dL Est Cr Clr Drug Dosing 72.53 mL/min Estimated GFR (MDRD) > 60 (>60) Glucose 211 H (74-106) mg/dL POC Glucose 212 H (74-106) mg/dL Calcium 8.6 (8.5-10.1) mg/dL Result Diagrams: 09/28/21 04:10 09/28/21 04:10 Diego Results Last 24 hrs: Microbiology 09/26/21 09:45 Aerobic Blood Culture - Preliminary Blood - Arterial Line - Direct Stick NO GROWTH AFTER 2 DAYS Anaerobic Blood Culture - Preliminary NO GROWTH AFTER 2 DAYS 09/26/21 09:45 Aerobic Blood Culture - Preliminary Blood - Arm, Right Anaerobic Blood Culture - Preliminary NO GROWTH AFTER 2 DAYS 09/27/21 07:41 CARTER Preparation - Final Other - Right Upper Lobe 09/27/21 07:40 CARTER Preparation - Final Other - Right Upper Lobe 09/27/21 07:39 CARTER Preparation - Final Other - Right Upper Lobe 09/27/21 07:41 Gram Stain - Final Bronchial Alveolar Lavage - Right Upper Lobe Respiratory Culture - Preliminary ORAL CONTAMINATION 1 DAY 09/27/21 07:40 Gram Stain - Final Bronchial Alveolar Lavage - Right Upper Lobe Respiratory Culture - Preliminary ORAL CONTAMINATION 1 DAY 09/27/21 07:39 Gram Stain - Final Bronchial Washings - Right Upper Lobe Respiratory Culture - Preliminary ORAL CONTAMINATION 1 DAY Sepsis Event Note - Evaluation Sepsis Screening Result: Sepsis Risk - Focused Exam Vital Signs: Vital Signs Temp Pulse Resp BP Pulse Ox 09/28/21 07:26 37.0 C 110 H 18 119/71 93 L 09/28/21 07:03 92 L 09/28/21 02:38 106 H 91 L 09/28/21 01:21 93 L - Problem List & Annotations (1) Recurrent pneumonia SNOMED Code(s): 680492272 Code(s): J18.9 - PNEUMONIA, UNSPECIFIED ORGANISM Status: Acute Current Visit: Yes (2) Acute respiratory failure with hypoxia SNOMED Code(s): 53371112, 749455602 Code(s): J96.01 - ACUTE RESPIRATORY FAILURE WITH HYPOXIA Status: Acute Priority: High Current Visit: Yes (3) Sepsis SNOMED Code(s): 23371770 Code(s): A41.9 - SEPSIS, UNSPECIFIED ORGANISM Status: Acute Priority: High Current Visit: Yes Qualifiers: Sepsis type: sepsis due to unspecified organism Sepsis acute organ dysfunction status: with acute organ dysfunction Severe sepsis acute organ dysfunction type: acute respiratory failure Acute respiratory failure type: with hypoxia Severe sepsis shock status: without septic shock Qualified Code(s): A41.9 - Sepsis, unspecified organism; R65.20 - Severe sepsis without septic shock; J96.01 - Acute respiratory failure with hypoxia (4) Schizophrenia, catatonic type SNOMED Code(s): 974668421 Code(s): F20.2 - CATATONIC SCHIZOPHRENIA Status: Chronic Current Visit: No (5) Type 2 diabetes mellitus SNOMED Code(s): 40864689 Code(s): E11.9 - TYPE 2 DIABETES MELLITUS WITHOUT COMPLICATIONS Status: Chronic Current Visit: No Qualifiers: Diabetes mellitus chcf insulin use: without remote computer terminal operator use Diabetes mellitus complication status: without complication Qualified Code(s): E11.9 - Type 2 diabetes mellitus without complications - Problem List Review Problem List Initiated/Reviewed/Updated: Yes - My Orders Last 24 Hours: My Active Orders 09/27/21 Lunch Consistent Carbohydrate Diet [DIET] Linezolid [Zyvox] 600 mg Premix Bag 1 bag IV Q12H 09/28/21 10:25 predniSONE 40 mg PO ONETIME ONE 09/28/21 11:30 GLUCOSE POC LAB TO COLLECT JPM [POC] QIDACANDBED 09/28/21 16:30 GLUCOSE POC LAB TO COLLECT JPM [POC] QIDACANDBED 09/28/21 21:00 GLUCOSE POC LAB TO COLLECT JPM [POC] QIDACANDBED 09/29/21 05:00 BASIC METABOLIC PANEL,BMP [CHEM] Timed CBC W/O DIFF,HEMOGRAM [HEME] Timed (1) CRP [C-REACTIVE PROTEIN] [CHEM] Timed 09/29/21 07:00 Echo Comp wo Cont [US] Routine 09/29/21 07:30 GLUCOSE POC LAB TO COLLECT JPM [POC] QIDACANDBED 09/29/21 08:00 predniSONE 40 mg PO WITHBREAKFAST 09/29/21 11:30 GLUCOSE POC LAB TO COLLECT JPM [POC] QIDACANDBED 09/29/21 16:30 GLUCOSE POC LAB TO COLLECT JPM [POC] QIDACANDBED 09/29/21 21:00 GLUCOSE POC LAB TO COLLECT JPM [POC] QIDACANDBED 09/30/21 07:30 GLUCOSE POC LAB TO COLLECT JPM [POC] QIDACANDBED 09/30/21 11:30 GLUCOSE POC LAB TO COLLECT JPM [POC] QIDACANDBED 09/30/21 16:30 GLUCOSE POC LAB TO COLLECT JPM [POC] QIDACANDBED 09/30/21 21:00 GLUCOSE POC LAB TO COLLECT JPM [POC] QIDACANDBED 10/01/21 07:30 GLUCOSE POC LAB TO COLLECT JPM [POC] QIDACANDBED 10/01/21 11:30 GLUCOSE POC LAB TO COLLECT JPM [POC] QIDACANDBED 10/01/21 16:30 GLUCOSE POC LAB TO COLLECT JPM [POC] QIDACANDBED 10/01/21 21:00 GLUCOSE POC LAB TO COLLECT JPM [POC] DACANDBED 10/02/21 09:00 Dulaglutide [Trulicity] 0 mg SUBCUT Th@0900 - Plan Plan:: ASSESSMENT AND PLAN - Recurrent pneumonia-complicated by acute respiratory failure with hypoxia. Bronchoscopy revealed inflammation of the tracheobronchial tree. Cultures from the bronchial washings growing oral contamination. She does have 1+ blood culture but I suspect this is contaminant. Supplemental oxygen requirement decreasing. -Empiric antibiotic coverage with levofloxacin and cefepime and linezolid until cultures are final -Transition to prednisone -Video swallow to look for aspiration -Echocardiogram to rule out cardiac contribution -Symptomatic management of pain -Supplement oxygen as needed -Follow-up cultures -As needed nebulizers -Follow-up testing for autoimmune disease including BLANCA, anti-CCP Type 2 diabetes mellitus-blood sugar control acceptable so far. -Continue home meds -Sliding scale insulin Schizophrenia-stable and doing well. -Home meds Obesity-BMI still over 50 Maintenance issues - -DVT prophylaxis-mechanical -GI prophylaxis-PPI -Nutrition-consistent carbohydrates Disposition -I anticipate discharge home after the hospital stay Primary care physician -Dr. Crystal Lima M.D.
[2021-09-28] MEDS ORDERED: predniSONE 20 MG Tab PO ONE (11:00)
[2021-09-28] MEDS: Levofloxacin/Dextrose 5%-Water 750 MG in Premix Bag 1 BAG IV SCH (15:06)
[2021-09-28] MEDS: rOPINIRole 1 MG Tab PO SCH (21:44)
[2021-09-28] MEDS: CLOZAPINE 100 MG PO SCH (21:44)
[2021-09-29] MEDS: Cefepime 1 GM in Sodium Chloride 0.9% 50 ML IV SCH ×3 (01:14→17:42)
[2021-09-29] MEDS: oxyCODONE 5 MG Tab PO PRN ×4 (05:07→17:42)
[2021-09-29] MEDS: Insulin Lispro 100 Unit/ML 3 ML KwikPen SUBCUT SCH ×4 (07:39→21:06)
[2021-09-29] MEDS: Pantoprazole 40 MG Tab.CR PO SCH (07:54)
[2021-09-29] MEDS: Cholecalciferol (Vitamin D3) 25 MCG Tab PO SCH (08:03)
[2021-09-29] MEDS: metFORMIN 500 MG Tab PO SCH ×2 (08:04→17:08)
[2021-09-29] MEDS: Ascorbic Acid 500 MG Tab PO SCH (08:04)
[2021-09-29] MEDS: predniSONE 20 MG Tab PO SCH (08:05)
[2021-09-29] MEDS: Acetaminophen 325 MG Tab PO PRN (08:13)
[2021-09-29] MEDS: Estradiol 0.5 MG Tab PO SCH (09:40)
[2021-09-29] MEDS: Gabapentin 400 MG Cap PO SCH ×3 (09:40→20:47)
[2021-09-29] MEDS: Zinc (Zinc Gluconate) 50 MG Tab PO SCH (09:40)
[2021-09-29] MEDS: Lactobacillus Rhamnosus GG (Probiotic) Cap PO SCH ×2 (09:40→20:47)
[2021-09-29] MEDS: Citalopram 20 MG Tab PO SCH (09:40)
[2021-09-29] MEDS: OLANZapine 5 MG Tab PO SCH ×2 (09:41→20:47)
[2021-09-29] MEDS: ALPRAZolam 0.5 MG Tab PO SCH ×3 (09:46→20:46)
[2021-09-29] MEDS: Linezolid 600 MG in Premix Bag 1 BAG IV SCH ×2 (12:34→23:20)
[2021-09-29] MEDS: tiZANidine 2 MG Tab PO SCH ×2 (15:47→20:46)
[2021-09-29] MEDS: Levofloxacin/Dextrose 5%-Water 750 MG in Premix Bag 1 BAG IV SCH (15:47)
--- NOTE | 2021-09-29 16:35 | PCM.PN ---
- General Info Date of Service: 09/29/21 Subjective Update: Ms. Shane has continued to experience symptoms of weakness as well as shortness of breath with activity. Vital signs have remained stable and she has been afebrile. Echocardiogram obtained today showed good left ventricular function and no significant abnormalities. Functional Status: Reports: Tolerating Diet, Ambulating, Urinating - Review of Systems General: Reports: Weakness, Fatigue. Denies: Fever, Chills Pulmonary: Reports: Shortness of Breath, Cough. Denies: Pleuritic Chest Pain, Sputum, Hemoptysis, Wheezing Cardiovascular: Reports: Dyspnea on Exertion. Denies: Chest Pain, Palpitations, Orthopnea, PND, Edema, Lightheadedness Gastrointestinal: Reports: No Symptoms Genitourinary: Reports: No Symptoms - Patient Data Vitals - Most Recent: Last Vital Signs Temp 98.3 F 09/29/21 15:45 Pulse 93 09/29/21 15:45 Resp 18 09/29/21 15:45 BP 135/82 09/29/21 15:45 Pulse Ox 92 L 09/29/21 15:45 Weight - Most Recent: 260 lb I&O - Last 24 Hours: Intake & Output 09/29/21 09/29/21 09/29/21 06:59 14:59 22:59 Intake Total 950 190 800 Output Total 1000 Balance 950 -810 800 Lab Results Last 24 Hours: Laboratory Results - last 24 hr 09/28/21 09/29/21 09/29/21 Range/Units 20:09 04:40 04:40 WBC 13.7 H (4.5-11.0) K/uL RBC 3.67 (3.30-5.50) M/uL Hgb 11.4 L (12.0-15.0) g/dL Hct 35.4 L (36.0-48.0) % MCV 97 (80-98) fL MCH 31 (27-31) pg MCHC 32 (32-36) % Plt Count 98 L (150-400) K/uL Sodium 145 (140-148) mmol/L Potassium 4.1 (3.6-5.2) mmol/L Chloride 105 (100-108) mmol/L Carbon Dioxide 30 (21-32) mmol/L Anion Gap 10.0 (5.0-14.0) mmol/L BUN 16 (7-18) mg/dL Creatinine 0.7 (0.6-1.0) mg/dL Est Cr Clr Drug Dosing 93.25 mL/min Estimated GFR (MDRD) > 60 (>60) Glucose 109 H (74-106) mg/dL POC Glucose 163 H (74-106) mg/dL Calcium 8.8 (8.5-10.1) mg/dL C-Reactive Protein 1.37 H (0.0-0.3) mg/dL 09/29/21 09/29/21 09/29/21 Range/Units 07:47 11: 16:28 WBC (4.5-11.0) K/uL RBC (3.30-5.50) M/uL Hgb (12.0-15.0) g/dL Hct (36.0-48.0) % MCV (80-98) fL MCH (27-31) pg MCHC (32-36) % Plt Count (150-400) K/uL Sodium (140-148) mmol/L Potassium (3.6-5.2) mmol/L Chloride (100-108) mmol/L Carbon Dioxide (21-32) mmol/L Anion Gap (5.0-14.0) mmol/L BUN (7-18) mg/dL Creatinine (0.6-1.0) mg/dL Est Cr Clr Drug Dosing mL/min Estimated GFR (MDRD) (>60) Glucose (74-106) mg/dL POC Glucose 112 H 169 H 231 H (74-106) mg/dL Calcium (8.5-10.1) mg/dL C-Reactive Protein (0.0-0.3) mg/dL [place] Results Last 24 Hours: Microbiology 09/26/21 09:45 Aerobic Blood Culture - Preliminary Blood - Arterial Line - Direct Stick NO GROWTH AFTER 3 DAYS Anaerobic Blood Culture - Preliminary NO GROWTH AFTER 3 DAYS 09/26/21 09:45 Aerobic Blood Culture - Final Blood - Arm, Right Gram Positive Rods Anaerobic Blood Culture - Preliminary NO GROWTH AFTER 3 DAYS 09/27/21 07:41 Gram Stain - Final Bronchial Alveolar Lavage - Right Upper Lobe Respiratory Culture - Final ORAL CONTAMINATION 2 DAY 09/27/21 07:40 Gram Stain - Final Bronchial Alveolar Lavage - Right Upper Lobe Respiratory Culture - Final ORAL CONTAMINATION 2 DAY 09/27/21 07:39 Gram Stain - Final Bronchial Washings - Right Upper Lobe Respiratory Culture - Final ORAL CONTAMINATION 2 DAY Med Orders - Current: Current Medications Acetaminophen (Acetaminophen 325 Mg Tab) 650 mg PO Q4H PRN PRN Reason: Pain (Mild 1-3)/fever Last Admin: 09/29/21 08:13 Dose: 650 mg Documented by: Albuterol (Albuterol 0.083% 2.5 Mg/3 Ml Neb Soln) 2.5 mg NEB Q4H PRN PRN Reason: Shortness Of Breath/wheezing Alprazolam (Alprazolam 0.5 Mg Tab) 1 mg PO TID [facility] Last Admin: 09/29/21 13:17 Dose: 1 mg Documented by: Ascorbic Acid (Ascorbic Acid 500 Mg Tab) 500 mg PO DAILY@0800 [facility] Last Admin: 09/29/21 08:04 Dose: 500 mg Documented by: Cholecalciferol (Cholecalciferol (Vitamin D3) 25 Mcg Tab) 25 mcg PO DAILY@0800 [facility] Last Admin: 09/29/21 08:03 Dose: 25 mcg Documented by: Citalopram Hydrobromide (Citalopram 20 Mg Tab) 40 mg PO DAILY [facility] Last Admin: 09/29/21 09:40 Dose: 40 mg Documented by: Estradiol (Estradiol 0.5 Mg Tab) 1.5 mg PO DAILY [facility] Last Admin: 09/29/21 09:40 Dose: 1.5 mg Documented by: Gabapentin (Gabapentin 400 Mg Cap) 800 mg PO TID [facility] Last Admin: 09/29/21 13:17 Dose: 800 mg Documented by: Cefepime HCl 1 gm/ Sodium (Chloride) 50 mls @ 100 mls/hr IV Q8H [facility] Last Admin: 09/29/21 09:42 Dose: 100 mls/hr Documented by: Levofloxacin/Dextrose 750 mg/ (Premix) 150 mls @ 100 mls/hr IV Q24H [facility] Last Admin: 09/29/21 15:47 Dose: 100 mls/hr Documented by: Linezolid 600 mg/ Premix 300 mls @ 300 mls/hr IV Q12H [facility] Last Admin: 09/29/21 12:34 Dose: 300 mls/hr Documented by: Insulin Human Lispro (Insulin Lispro 100 Unit/Ml 3 Ml Kwikpen) 0 unit SUBCUT QIDACANDBED [facility]; Protocol Last Admin: 09/29/21 11:31 Dose: 1 units Documented by: Lactobacillus Rhamnosus (Lactobacillus Rhamnosus Gg (Probiotic) Cap) 1 cap PO BID [facility] Last Admin: 09/29/21 09:40 Dose: 1 cap Documented by: Lorazepam (Lorazepam 2 Mg/Ml Sdv) 0.5 mg IVPUSH Q4H PRN PRN Reason: Nausea/Vomiting Magnesium Hydroxide (Magnesium Hydroxide 400 Mg/5 Ml Susp 30 Ml Cup) 30 ml PO Q12H PRN PRN Reason: Constipation Metformin HCl (Metformin 500 Mg Tab) 500 mg PO BIDMEALS [facility] Last Admin: 09/29/21 08:04 Dose: 500 mg Documented by: Morphine Sulfate (Morphine 2 Mg/Ml Syringe) 2 mg IVPUSH Q2H PRN PRN Reason: Pain (severe 7-10) (Dulaglutide [ Trulicity] 0.75 Mg/0 .5 Ml Pen.Injctr)* Pom* 0 mg SUBCUT Th@0900 [facility] Olanzapine (Olanzapine 5 Mg Tab) 15 mg PO BID [facility] Last Admin: 09/29/21 09:41 Dose: 15 mg Documented by: Ondansetron HCl (Ondansetron 4 Mg/2 Ml Sdv) 4 mg IV Q6H PRN PRN Reason: Nausea/Vomiting Ondansetron HCl (Ondansetron 4 Mg Tab.Dis) 4 mg PO Q6H PRN PRN Reason: Nausea able to take PO Oxycodone HCl (Oxycodone 5 Mg Tab) 5 mg PO Q4H PRN PRN Reason: Pain Pantoprazole Sodium (Pantoprazole 40 Mg Tab.Cr) 40 mg PO ACBREAKFAST [facility] Last Admin: 09/29/21 07:54 Dose: 40 mg Documented by: (Clozapine 100 Mg (Tablet) *Pt Own Med*) 0 each PO BEDTIME [facility] Last Admin: 09/28/21 21:44 Dose: 1 each Documented by: Polyethylene Glycol (Polyethylene Glycol 3350 Powder 17 Gm Packet) 17 gm PO BEDTIME [facility] Prednisone (Prednisone 20 Mg Tab) 40 mg PO WITHBREAKFAST [facility] Last Admin: 09/29/21 08:05 Dose: 40 mg Documented by: Ropinirole HCl (Ropinirole 1 Mg Tab) 1 mg PO BEDTIME [facility] Last Admin: 09/28/21 21:44 Dose: 1 mg Documented by: Senna/Docusate Sodium (Docusate Sodium/Sennosides 50-8.6 Mg Tab) 1 tab PO BID PRN PRN Reason: Constipation Sodium Chloride (Sodium Chloride 0.9% 10 Ml Syringe) 10 ml FLUSH ASDIRECTED PRN PRN Reason: Keep Vein Open Tizanidine HCl (Tizanidine 2 Mg Tab) 2 mg PO TID [facility] Last Admin: 09/29/21 15:47 Dose: 2 mg Documented by: Zinc Gluconate (Zinc (Zinc Gluconate) 50 Mg Tab) 50 mg PO DAILY [facility] Last Admin: 09/29/21 09:40 Dose: 50 mg Documented by: Discontinued Medications Acetaminophen (Acetaminophen 325 Mg Tab) 650 mg PO NOW ONE Stop: 09/26/21 10:07 Last Admin: 09/26/21 10:26 Dose: 650 mg Documented by: Hydrocodone Bitart/Acetaminophen (Acetaminophen/Hydrocodone 325-5 Mg Tab) 1 tab PO ONETIME ONE Stop: 09/26/21 14:30 Last Admin: 09/26/21 14:35 Dose: 1 tab Documented by: Dexamethasone (Dexamethasone 4 Mg/Ml Sdv) Confirm Administered Dose 4 mg .ROUTE .STK-MED ONE Stop: 09/27/21 07:57 Fentanyl (Fentanyl 100 Mcg/2 Ml Sdv) Confirm Administered Dose 100 mcg .ROUTE .STK-MED ONE Stop: 09/27/21 07:01 Glycopyrrolate (Glycopyrrolate 0.2 Mg/Ml 5 Ml Mdv) Confirm Administered Dose 1 mg .ROUTE .STK-MED ONE Stop: 09/27/21 06:25 Sodium Chloride (Normal Saline) 1,000 mls @ 999 mls/hr IV BOLUS ONE; Protocol Stop: 09/26/21 10:16 Last Admin: 09/26/21 18:56 Dose: Not Given Documented by: Vancomycin HCl 1.5 gm/ Sodium (Chloride) 250 mls @ 167 mls/hr IV STAT ONE Stop: 09/26/21 10:45 Last Admin: 09/26/21 10:35 Dose: 167 mls/hr Documented by: Lactated Ringer's (Ringers, Lactated) 2,500 mls @ 999 mls/hr IV BOLUS [facility] Cefepime HCl 2 gm/ Sodium (Chloride) 50 mls @ 100 mls/hr IV STAT ONE Stop: 09/26/21 10:29 Last Admin: 09/26/21 10:03 Dose: 100 mls/hr Documented by: Sodium Chloride (Normal Saline) Confirm Administered Dose 10 mls @ as directed .ROUTE .STK-MED ONE Stop: 09/27/21 06:21 Ketamine HCl (Ketamine 500 Mg/5 Ml Mdv) Confirm Administered Dose 500 mg .ROUTE .STK-MED ONE Stop: 09/27/21 06:20 Lidocaine (Lidocaine 4% Top Soln Lta 4 Ml Syringe Kit) Confirm Administered Dose 4 ml .ROUTE .STK-MED ONE Stop: 09/27/21 06:25 Lidocaine HCl (Lidocaine 2% Viscous Solution 15 Ml Cup) Confirm Administered Dose 15 ml .ROUTE .STK-MED ONE Stop: 09/27/21 07:18 Lidocaine HCl (Lidocaine 4% Top Soln 50 Ml Bottle) Confirm Administered Dose 50 ml .ROUTE .STK-MED ONE Stop: 09/27/21 07:18 Lidocaine HCl (Lidocaine 2% Viscous Solution 15 Ml Cup) 10 ml GTUBE .STK-MED ONE Stop: 09/27/21 07:41 Last Admin: 09/27/21 07:40 Dose: 10 ml Documented by: Lidocaine HCl (Lidocaine 4% Top Soln 50 Ml Bottle) 50 ml PO .STK-MED ONE Stop: 09/27/21 07:42 Last Admin: 09/27/21 07:41 Dose: 50 ml Documented by: Methylprednisolone Sodium Succinate (Methylprednisolone Sodium Succinate 125 Mg/2 Ml Sdv) 125 mg IVPUSH ONETIME ONE Stop: 09/26/21 16:01 Last Admin: 09/26/21 16:25 Dose: 125 mg Documented by: Methylprednisolone Sodium Succinate (Methylprednisolone Sodium Succinate 125 Mg/2 Ml Sdv) 62.5 mg IVPUSH Q8H [facility] Last Admin: 09/28/21 05:33 Dose: 62.5 mg Documented by: Midazolam HCl (Midazolam 1 Mg/Ml 2 Ml Sdv) Confirm Administered Dose 2 mg .ROUTE .STK-MED ONE Stop: 09/27/21 06:20 Ondansetron HCl (Ondansetron 4 Mg/2 Ml Sdv) Confirm Administered Dose 4 mg .ROUTE .STK-MED ONE Stop: 09/27/21 06:25 Oxycodone HCl (Oxycodone 5 Mg Tab) 5 - 10 mg PO Q4H PRN PRN Reason: Pain Last Admin: 09/29/21 13:17 Dose: 5 mg Documented by: Polyethylene Glycol (Polyethylene Glycol 3350 Powder 17 Gm Packet) 17 gm PO DAILY [facility] Last Admin: 09/28/21 21:42 Dose: 17 gm Documented by: Prednisone (Prednisone 20 Mg Tab) 40 mg PO ONETIME ONE Stop: 09/28/21 11:01 Last Admin: 09/28/21 11:49 Dose: 40 mg Documented by: Propofol (Propofol 200 Mg/20 Ml Sdv) Confirm Administered Dose 200 mg .ROUTE .STK-MED ONE Stop: 09/27/21 06:25 - Exam Quality Assessment: Supplemental Oxygen, DVT Prophylaxis General: Alert, Oriented, Cooperative, Mild Distress Lungs: Normal Respiratory Effort, Rhonchi. No: Crackles, Rales, Wheezing Cardiovascular: Regular Rate, Regular Rhythm, No Murmurs GI/Abdominal Exam: Soft, Non-Tender, No Organomegaly, No Distention Extremities: Non-Tender, No Pedal Edema - Patient Data Lab Results Last 24 hrs: Laboratory Results - last 24 hr 09/28/21 09/29/21 09/29/21 Range/Units 20:09 04:40 04:40 WBC 13.7 H (4.5-11.0) K/uL RBC 3.67 (3.30-5.50) M/uL Hgb 11.4 L (12.0-15.0) g/dL Hct 35.4 L (36.0-48.0) % MCV 97 (80-98) fL MCH 31 (27-31) pg MCHC 32 (32-36) % Plt Count 98 L (150-400) K/uL Sodium 145 (140-148) mmol/L Potassium 4.1 (3.6-5.2) mmol/L Chloride 105 (100-108) mmol/L Carbon Dioxide 30 (21-32) mmol/L Anion Gap 10.0 (5.0-14.0) mmol/L BUN 16 (7-18) mg/dL Creatinine 0.7 (0.6-1.0) mg/dL Est Cr Clr Drug Dosing 93.25 mL/min Estimated GFR (MDRD) > 60 (>60) Glucose 109 H (74-106) mg/dL POC Glucose 163 H (74-106) mg/dL Calcium 8.8 (8.5-10.1) mg/dL C-Reactive Protein 1.37 H (0.0-0.3) mg/dL 09/29/21 09/29/21 09/29/21 Range/Units 07:47 11: 16:28 WBC (4.5-11.0) K/uL RBC (3.30-5.50) M/uL Hgb (12.0-15.0) g/dL Hct (36.0-48.0) % MCV (80-98) fL MCH (27-31) pg MCHC (32-36) % Plt Count (150-400) K/uL Sodium (140-148) mmol/L Potassium (3.6-5.2) mmol/L Chloride (100-108) mmol/L Carbon Dioxide (21-32) mmol/L Anion Gap (5.0-14.0) mmol/L BUN (7-18) mg/dL Creatinine (0.6-1.0) mg/dL Est Cr Clr Drug Dosing mL/min Estimated GFR (MDRD) (>60) Glucose (74-106) mg/dL POC Glucose 112 H 169 H 231 H (74-106) mg/dL Calcium (8.5-10.1) mg/dL C-Reactive Protein (0.0-0.3) mg/dL Result Diagrams: 09/29/21 04:40 09/29/21 04:40 Diego Results Last 24 hrs: Microbiology 09/26/21 09:45 Aerobic Blood Culture - Preliminary Blood - Arterial Line - Direct Stick NO GROWTH AFTER 3 DAYS Anaerobic Blood Culture - Preliminary NO GROWTH AFTER 3 DAYS 09/26/21 09:45 Aerobic Blood Culture - Final Blood - Arm, Right Gram Positive Rods Anaerobic Blood Culture - Preliminary NO GROWTH AFTER 3 DAYS 09/27/21 07:41 Gram Stain - Final Bronchial Alveolar Lavage - Right Upper Lobe Respiratory Culture - Final ORAL CONTAMINATION 2 DAY 09/27/21 07:40 Gram Stain - Final Bronchial Alveolar Lavage - Right Upper Lobe Respiratory Culture - Final ORAL CONTAMINATION 2 DAY 09/27/21 07:39 Gram Stain - Final Bronchial Washings - Right Upper Lobe Respiratory Culture - Final ORAL CONTAMINATION 2 DAY Sepsis Event Note - Evaluation Sepsis Screening Result: Possible Sepsis Risk - Focused Exam Vital Signs: Vital Signs Temp Pulse Resp BP Pulse Ox 09/29/21 15:45 98.3 F 93 18 135/82 92 L 09/29/21 10:42 97.4 F 89 14 139/93 H 93 L 09/29/21 10:22 93 L 09/29/21 07:22 98.0 F 75 14 131/82 93 L - Problem List Review Problem List Initiated/Reviewed/Updated: Yes - My Orders Last 24 Hours: My Active Orders 09/29/21 15:00 tiZANidine [Zanaflex] 2 mg PO TID 09/29/21 15:09 oxyCODONE 5 mg PO Q4H PRN 09/30/21 05:00 BASIC METABOLIC PANEL,BMP [CHEM] Timed CBC WITH AUTO DIFF [HEME] Timed - Plan Plan:: ASSESSMENT AND PLAN - Recurrent pneumonia-complicated by acute respiratory failure with hypoxia. Bronchoscopy revealed inflammation of the tracheobronchial tree. Cultures from the bronchial washings growing oral contamination. She does have 1+ blood culture but I suspect this is contaminant. Supplemental oxygen requirement decreasing. Echocardiogram shows normal systolic function and no other significant abnormalities -Empiric antibiotic coverage with levofloxacin and cefepime and linezolid until cultures are final -prednisone -Video swallow to look for aspiration -Symptomatic management of pain -Supplement oxygen as needed -Follow-up cultures -As needed nebulizers -Follow-up testing for autoimmune disease including BLANCA, anti-CCP Type 2 diabetes mellitus-blood sugar control acceptable so far. -Continue home meds -Sliding scale insulin Schizophrenia-stable and doing well. -Home meds Obesity-BMI still over 50 Maintenance issues - -DVT prophylaxis-mechanical -GI prophylaxis-PPI -Nutrition-consistent carbohydrates Disposition -I anticipate discharge home after the hospital stay Primary care physician -Dr. Crystal Loza
[2021-09-29] MEDS: CLOZAPINE 100 MG PO SCH (20:46)
[2021-09-29] MEDS: rOPINIRole 1 MG Tab PO SCH (20:46)
[2021-09-29] MEDS: Polyethylene Glycol 3350 Powder 17 GM Packet PO SCH (20:46)
[2021-09-30] MEDS: Cefepime 1 GM in Sodium Chloride 0.9% 50 ML IV SCH ×3 (01:24→18:19)
[2021-09-30] MEDS: oxyCODONE 5 MG Tab PO PRN ×5 (03:04→21:58)
[2021-09-30] MEDS: Insulin Lispro 100 Unit/ML 3 ML KwikPen SUBCUT SCH ×4 (07:43→21:21)
[2021-09-30] MEDS: Cholecalciferol (Vitamin D3) 25 MCG Tab PO SCH (07:49)
[2021-09-30] MEDS: Pantoprazole 40 MG Tab.CR PO SCH (07:49)
[2021-09-30] MEDS: Ascorbic Acid 500 MG Tab PO SCH (07:49)
[2021-09-30] MEDS: predniSONE 20 MG Tab PO SCH (07:50)
[2021-09-30] MEDS: metFORMIN 500 MG Tab PO SCH ×2 (07:54→16:48)
[2021-09-30] MEDS: Gabapentin 400 MG Cap PO SCH ×3 (09:02→21:27)
[2021-09-30] MEDS: Estradiol 0.5 MG Tab PO SCH (09:02)
[2021-09-30] MEDS: Lactobacillus Rhamnosus GG (Probiotic) Cap PO SCH ×2 (09:02→21:27)
[2021-09-30] MEDS: OLANZapine 5 MG Tab PO SCH ×2 (09:02→21:27)
[2021-09-30] MEDS: ALPRAZolam 0.5 MG Tab PO SCH ×3 (09:03→21:39)
[2021-09-30] MEDS: tiZANidine 2 MG Tab PO SCH ×3 (09:03→21:27)
[2021-09-30] MEDS: Zinc (Zinc Gluconate) 50 MG Tab PO SCH (09:03)
[2021-09-30] MEDS: Citalopram 20 MG Tab PO SCH (09:03)
[2021-09-30] MEDS: Linezolid 600 MG in Premix Bag 1 BAG IV SCH (11:36)
--- NOTE | 2021-09-30 14:46 | PCM.PN ---
- General Info Date of Service: 09/30/21 Subjective Update: Ms. Shane has remained fairly stable since yesterday. Continues to feel very weak and somewhat short of breath. Denies significant cough. Level of supplemental oxygen is back to baseline at 2 L/min via nasal cannula. Functional Status: Reports: Tolerating Diet, Ambulating, Urinating - Review of Systems General: Reports: Weakness, Fatigue. Denies: Fever, Chills Pulmonary: Reports: Shortness of Breath. Denies: Pleuritic Chest Pain, Cough, Sputum, Hemoptysis, Wheezing Cardiovascular: Reports: Dyspnea on Exertion. Denies: Chest Pain, Palpitations, Orthopnea, PND, Edema, Lightheadedness Gastrointestinal: Reports: No Symptoms Genitourinary: Reports: No Symptoms - Patient Data Vitals - Most Recent: Last Vital Signs Temp 98.5 F 09/30/21 12:23 Pulse 93 09/30/21 12:23 Resp 18 09/30/21 12:23 BP 117/69 09/30/21 12:23 Pulse Ox 90 L 09/30/21 12:23 Weight - Most Recent: 260 lb I&O - Last 24 Hours: Intake & Output 09/29/21 09/30/21 09/30/21 22:59 06:59 14:59 Intake Total 1680 1550 480 Output Total 1400 1100 Balance 280 450 480 Lab Results Last 24 Hours: Laboratory Results - last 24 hr 09/29/21 09/29/21 09/30/21 Range/Units 16:28 21:00 04:20 WBC 12.8 H (4.5-11.0) K/uL RBC 3.83 (3.30-5.50) M/uL Hgb 12.2 (12.0-15.0) g/dL Hct 36.6 (36.0-48.0) % MCV 96 (80-98) fL MCH 32 H (27-31) pg MCHC 33 (32-36) % Plt Count 292 (150-400) K/uL Neut % (Auto) 65.4 (36-66) % Lymph % (Auto) 26.9 (24-44) % Whitley % (Auto) 6.3 H (2-6) % Eos % (Auto) 1.0 L (2-4) % Baso % (Auto) 0.4 (0-1) % Sodium (140-148) mmol/L Potassium (3.6-5.2) mmol/L Chloride (100-108) mmol/L Carbon Dioxide (21-32) mmol/L Anion Gap (5.0-14.0) mmol/L BUN (7-18) mg/dL Creatinine (0.6-1.0) mg/dL Est Cr Clr Drug Dosing mL/min Estimated GFR (MDRD) (>60) Glucose (74-106) mg/dL POC Glucose 231 H 147 H (74-106) mg/dL Calcium (8.5-10.1) mg/dL 09/30/21 09/30/21 09/30/21 Range/Units 04:20 07:33 11:32 WBC (4.5-11.0) K/uL RBC (3.30-5.50) M/uL Hgb (12.0-15.0) g/dL Hct (36.0-48.0) % MCV (80-98) fL MCH (27-31) pg MCHC (32-36) % Plt Count (150-400) K/uL Neut % (Auto) (36-66) % Lymph % (Auto) (24-44) % Whitley % (Auto) (2-6) % Eos % (Auto) (2-4) % Baso % (Auto) (0-1) % Sodium 146 (140-148) mmol/L Potassium 4.3 (3.6-5.2) mmol/L Chloride 104 (100-108) mmol/L Carbon Dioxide 33 H (21-32) mmol/L Anion Gap 13.3 (5.0-14.0) mmol/L BUN 13 (7-18) mg/dL Creatinine 0.7 (0.6-1.0) mg/dL Est Cr Clr Drug Dosing 93.25 mL/min Estimated GFR (MDRD) > 60 (>60) Glucose 94 (74-106) mg/dL POC Glucose 85 188 H (74-106) mg/dL Calcium 8.6 (8.5-10.1) mg/dL Diego Results Last 24 Hours: Microbiology 09/26/21 09:45 Aerobic Blood Culture - Preliminary Blood - Arterial Line - Direct Stick NO GROWTH AFTER 4 DAYS Anaerobic Blood Culture - Preliminary NO GROWTH AFTER 4 DAYS 09/26/21 09:45 Aerobic Blood Culture - Final Blood - Arm, Right Gram Positive Rods Anaerobic Blood Culture - Preliminary NO GROWTH AFTER 4 DAYS Med Orders - Current: Current Medications Acetaminophen (Acetaminophen 325 Mg Tab) 650 mg PO Q4H PRN PRN Reason: Pain (Mild 1-3)/fever Last Admin: 09/29/21 08:13 Dose: 650 mg Documented by: Albuterol (Albuterol 0.083% 2.5 Mg/3 Ml Neb Soln) 2.5 mg NEB Q4H PRN PRN Reason: Shortness Of Breath/wheezing Alprazolam (Alprazolam 0.5 Mg Tab) 1 mg PO TID [facility] Last Admin: 09/30/21 13:37 Dose: 1 mg Documented by: Ascorbic Acid (Ascorbic Acid 500 Mg Tab) 500 mg PO DAILY@0800 [facility] Last Admin: 09/30/21 07:49 Dose: 500 mg Documented by: Cholecalciferol (Cholecalciferol (Vitamin D3) 25 Mcg Tab) 25 mcg PO DAILY@0800 [facility] Last Admin: 09/30/21 07:49 Dose: 25 mcg Documented by: Citalopram Hydrobromide (Citalopram 20 Mg Tab) 40 mg PO DAILY [facility] Last Admin: 09/30/21 09:03 Dose: 40 mg Documented by: Estradiol (Estradiol 0.5 Mg Tab) 1.5 mg PO DAILY [facility] Last Admin: 09/30/21 09:02 Dose: 1.5 mg Documented by: Gabapentin (Gabapentin 400 Mg Cap) 800 mg PO TID [facility] Last Admin: 09/30/21 13:37 Dose: 800 mg Documented by: Cefepime HCl 1 gm/ Sodium (Chloride) 50 mls @ 100 mls/hr IV Q8H [facility] Last Admin: 09/30/21 09:03 Dose: 100 mls/hr Documented by: Levofloxacin/Dextrose 750 mg/ (Premix) 150 mls @ 100 mls/hr IV Q24H [facility] Last Admin: 09/29/21 15:47 Dose: 100 mls/hr Documented by: Linezolid 600 mg/ Premix 300 mls @ 300 mls/hr IV Q12H [facility] Last Admin: 09/30/21 11:36 Dose: 300 mls/hr Documented by: Insulin Human Lispro (Insulin Lispro 100 Unit/Ml 3 Ml Kwikpen) 0 unit SUBCUT QIDACANDBED [facility]; Protocol Last Admin: 09/30/21 11:36 Dose: 1 units Documented by: Lactobacillus Rhamnosus (Lactobacillus Rhamnosus Gg (Probiotic) Cap) 1 cap PO BID [facility] Last Admin: 09/30/21 09:02 Dose: 1 cap Documented by: Lorazepam (Lorazepam 2 Mg/Ml Sdv) 0.5 mg IVPUSH Q4H PRN PRN Reason: Nausea/Vomiting Magnesium Hydroxide (Magnesium Hydroxide 400 Mg/5 Ml Susp 30 Ml Cup) 30 ml PO Q12H PRN PRN Reason: Constipation Metformin HCl (Metformin 500 Mg Tab) 500 mg PO BIDMEALS [facility] Last Admin: 09/30/21 07:54 Dose: 500 mg Documented by: Morphine Sulfate (Morphine 2 Mg/Ml Syringe) 2 mg IVPUSH Q2H PRN PRN Reason: Pain (severe 7-10) (Dulaglutide [ Trulicity] 0.75 Mg/0 .5 Ml Pen.Injctr)* Pom* 0 mg SUBCUT Th@0900 [facility] Olanzapine (Olanzapine 5 Mg Tab) 15 mg PO BID [facility] Last Admin: 09/30/21 09:02 Dose: 15 mg Documented by: Ondansetron HCl (Ondansetron 4 Mg/2 Ml Sdv) 4 mg IV Q6H PRN PRN Reason: Nausea/Vomiting Ondansetron HCl (Ondansetron 4 Mg Tab.Dis) 4 mg PO Q6H PRN PRN Reason: Nausea able to take PO Oxycodone HCl (Oxycodone 5 Mg Tab) 5 mg PO Q4H PRN PRN Reason: Pain Last Admin: 09/30/21 12:23 Dose: 5 mg Documented by: Pantoprazole Sodium (Pantoprazole 40 Mg Tab.Cr) 40 mg PO ACBREAKFAST [facility] Last Admin: 09/30/21 07:49 Dose: 40 mg Documented by: (Clozapine 100 Mg (Tablet) *Pt Own Med*) 0 each PO BEDTIME [facility] Last Admin: 09/29/21 20:46 Dose: 1 each Documented by: Polyethylene Glycol (Polyethylene Glycol 3350 Powder 17 Gm Packet) 17 gm PO BEDTIME [facility] Last Admin: 09/29/21 20:46 Dose: 17 gm Documented by: Prednisone (Prednisone 20 Mg Tab) 40 mg PO WITHBREAKFAST [facility] Last Admin: 09/30/21 07:50 Dose: 40 mg Documented by: Ropinirole HCl (Ropinirole 1 Mg Tab) 1 mg PO BEDTIME [facility] Last Admin: 09/29/21 20:46 Dose: 1 mg Documented by: Senna/Docusate Sodium (Docusate Sodium/Sennosides 50-8.6 Mg Tab) 1 tab PO BID PRN PRN Reason: Constipation Sodium Chloride (Sodium Chloride 0.9% 10 Ml Syringe) 10 ml FLUSH ASDIRECTED PRN PRN Reason: Keep Vein Open Tizanidine HCl (Tizanidine 2 Mg Tab) 2 mg PO TID [facility] Last Admin: 09/30/21 13:37 Dose: 2 mg Documented by: Zinc Gluconate (Zinc (Zinc Gluconate) 50 Mg Tab) 50 mg PO DAILY [facility] Last Admin: 09/30/21 09:03 Dose: 50 mg Documented by: Discontinued Medications Acetaminophen (Acetaminophen 325 Mg Tab) 650 mg PO NOW ONE Stop: 09/26/21 10:07 Last Admin: 09/26/21 10:26 Dose: 650 mg Documented by: Hydrocodone Bitart/Acetaminophen (Acetaminophen/Hydrocodone 325-5 Mg Tab) 1 tab PO ONETIME ONE Stop: 09/26/21 14:30 Last Admin: 09/26/21 14:35 Dose: 1 tab Documented by: Dexamethasone (Dexamethasone 4 Mg/Ml Sdv) Confirm Administered Dose 4 mg .ROUTE .STK-MED ONE Stop: 09/27/21 07:57 Fentanyl (Fentanyl 100 Mcg/2 Ml Sdv) Confirm Administered Dose 100 mcg .ROUTE .STK-MED ONE Stop: 09/27/21 07:01 Glycopyrrolate (Glycopyrrolate 0.2 Mg/Ml 5 Ml Mdv) Confirm Administered Dose 1 mg .ROUTE .STK-MED ONE Stop: 09/27/21 06:25 Sodium Chloride (Normal Saline) 1,000 mls @ 999 mls/hr IV BOLUS ONE; Protocol Stop: 09/26/21 10:16 Last Admin: 09/26/21 18:56 Dose: Not Given Documented by: Vancomycin HCl 1.5 gm/ Sodium (Chloride) 250 mls @ 167 mls/hr IV STAT ONE Stop: 09/26/21 10:45 Last Admin: 09/26/21 10:35 Dose: 167 mls/hr Documented by: Lactated Ringer's (Ringers, Lactated) 2,500 mls @ 999 mls/hr IV BOLUS [facility] Cefepime HCl 2 gm/ Sodium (Chloride) 50 mls @ 100 mls/hr IV STAT ONE Stop: 09/26/21 10:29 Last Admin: 09/26/21 10:03 Dose: 100 mls/hr Documented by: Sodium Chloride (Normal Saline) Confirm Administered Dose 10 mls @ as directed .ROUTE .STK-MED ONE Stop: 09/27/21 06:21 Ketamine HCl (Ketamine 500 Mg/5 Ml Mdv) Confirm Administered Dose 500 mg .ROUTE .STK-MED ONE Stop: 09/27/21 06:20 Lidocaine (Lidocaine 4% Top Soln Lta 4 Ml Syringe Kit) Confirm Administered Dose 4 ml .ROUTE .STK-MED ONE Stop: 09/27/21 06:25 Lidocaine HCl (Lidocaine 2% Viscous Solution 15 Ml Cup) Confirm Administered Dose 15 ml .ROUTE .STK-MED ONE Stop: 09/27/21 07:18 Lidocaine HCl (Lidocaine 4% Top Soln 50 Ml Bottle) Confirm Administered Dose 50 ml .ROUTE .STK-MED ONE Stop: 09/27/21 07:18 Lidocaine HCl (Lidocaine 2% Viscous Solution 15 Ml Cup) 10 ml GTUBE .STK-MED ONE Stop: 09/27/21 07:41 Last Admin: 09/27/21 07:40 Dose: 10 ml Documented by: Lidocaine HCl (Lidocaine 4% Top Soln 50 Ml Bottle) 50 ml PO .STK-MED ONE Stop: 09/27/21 07:42 Last Admin: 09/27/21 07:41 Dose: 50 ml Documented by: Methylprednisolone Sodium Succinate (Methylprednisolone Sodium Succinate 125 Mg/2 Ml Sdv) 125 mg IVPUSH ONETIME ONE Stop: 09/26/21 16:01 Last Admin: 09/26/21 16:25 Dose: 125 mg Documented by: Methylprednisolone Sodium Succinate (Methylprednisolone Sodium Succinate 125 Mg/2 Ml Sdv) 62.5 mg IVPUSH Q8H [facility] Last Admin: 09/28/21 05:33 Dose: 62.5 mg Documented by: Midazolam HCl (Midazolam 1 Mg/Ml 2 Ml Sdv) Confirm Administered Dose 2 mg .ROUTE .STK-MED ONE Stop: 09/27/21 06:20 Ondansetron HCl (Ondansetron 4 Mg/2 Ml Sdv) Confirm Administered Dose 4 mg .ROUTE .STK-MED ONE Stop: 09/27/21 06:25 Oxycodone HCl (Oxycodone 5 Mg Tab) 5 - 10 mg PO Q4H PRN PRN Reason: Pain Last Admin: 09/29/21 13:17 Dose: 5 mg Documented by: Polyethylene Glycol (Polyethylene Glycol 3350 Powder 17 Gm Packet) 17 gm PO DAILY [facility] Last Admin: 09/28/21 21:42 Dose: 17 gm Documented by: Prednisone (Prednisone 20 Mg Tab) 40 mg PO ONETIME ONE Stop: 09/28/21 11:01 Last Admin: 09/28/21 11:49 Dose: 40 mg Documented by: Propofol (Propofol 200 Mg/20 Ml Sdv) Confirm Administered Dose 200 mg .ROUTE .STK-MED ONE Stop: 09/27/21 06:25 - Exam Quality Assessment: Supplemental Oxygen, DVT Prophylaxis General: Alert, Oriented, Cooperative, Mild Distress Lungs: Clear to Auscultation, Normal Respiratory Effort, Decreased Breath Sounds. No: Rales, Rhonchi, Wheezing Cardiovascular: Regular Rate, Regular Rhythm, No Murmurs GI/Abdominal Exam: Soft, Non-Tender, No Organomegaly, No Distention Extremities: Non-Tender, No Pedal Edema - Patient Data Lab Results Last 24 hrs: Laboratory Results - last 24 hr 09/29/21 09/29/21 09/30/21 Range/Units 16:28 21:00 04:20 WBC 12.8 H (4.5-11.0) K/uL RBC 3.83 (3.30-5.50) M/uL Hgb 12.2 (12.0-15.0) g/dL Hct 36.6 (36.0-48.0) % MCV 96 (80-98) fL MCH 32 H (27-31) pg MCHC 33 (32-36) % Plt Count 292 (150-400) K/uL Neut % (Auto) 65.4 (36-66) % Lymph % (Auto) 26.9 (24-44) % Whitley % (Auto) 6.3 H (2-6) % Eos % (Auto) 1.0 L (2-4) % Baso % (Auto) 0.4 (0-1) % Sodium (140-148) mmol/L Potassium (3.6-5.2) mmol/L Chloride (100-108) mmol/L Carbon Dioxide (21-32) mmol/L Anion Gap (5.0-14.0) mmol/L BUN (7-18) mg/dL Creatinine (0.6-1.0) mg/dL Est Cr Clr Drug Dosing mL/min Estimated GFR (MDRD) (>60) Glucose (74-106) mg/dL POC Glucose 231 H 147 H (74-106) mg/dL Calcium (8.5-10.1) mg/dL 09/30/21 09/30/21 09/30/21 Range/Units 04:20 07:33 11:32 WBC (4.5-11.0) K/uL RBC (3.30-5.50) M/uL Hgb (12.0-15.0) g/dL Hct (36.0-48.0) % MCV (80-98) fL MCH (27-31) pg MCHC (32-36) % Plt Count (150-400) K/uL Neut % (Auto) (36-66) % Lymph % (Auto) (24-44) % Whitley % (Auto) (2-6) % Eos % (Auto) (2-4) % Baso % (Auto) (0-1) % Sodium 146 (140-148) mmol/L Potassium 4.3 (3.6-5.2) mmol/L Chloride 104 (100-108) mmol/L Carbon Dioxide 33 H (21-32) mmol/L Anion Gap 13.3 (5.0-14.0) mmol/L BUN 13 (7-18) mg/dL Creatinine 0.7 (0.6-1.0) mg/dL Est Cr Clr Drug Dosing 93.25 mL/min Estimated GFR (MDRD) > 60 (>60) Glucose 94 (74-106) mg/dL POC Glucose 85 188 H (74-106) mg/dL Calcium 8.6 (8.5-10.1) mg/dL Result Diagrams: 09/30/21 04:20 09/30/21 04:20 Diego Results Last 24 hrs: Microbiology 09/26/21 09:45 Aerobic Blood Culture - Preliminary Blood - Arterial Line - Direct Stick NO GROWTH AFTER 4 DAYS Anaerobic Blood Culture - Preliminary NO GROWTH AFTER 4 DAYS 09/26/21 09:45 Aerobic Blood Culture - Final Blood - Arm, Right Gram Positive Rods Anaerobic Blood Culture - Preliminary NO GROWTH AFTER 4 DAYS Sepsis Event Note - Evaluation Sepsis Screening Result: No Definite Risk - Focused Exam Vital Signs: Vital Signs Temp Pulse Resp BP Pulse Ox 09/30/21 12:23 98.5 F 93 18 117/69 90 L 09/30/21 07:47 96.9 F 84 16 141/84 H 91 L - Problem List Review Problem List Initiated/Reviewed/Updated: Yes - My Orders Last 24 Hours: My Active Orders 09/29/21 15:00 tiZANidine [Zanaflex] 2 mg PO TID 09/29/21 15:09 oxyCODONE 5 mg PO Q4H PRN - Plan Plan:: ASSESSMENT AND PLAN - Recurrent pneumonia-complicated by acute respiratory failure with hypoxia. Bronchoscopy revealed inflammation of the tracheobronchial tree. Cultures from the bronchial washings growing oral contamination. She does have 1+ blood culture but I suspect this is contaminant. Supplemental oxygen requirement is now back to baseline. -Empiric antibiotic coverage with levofloxacin and cefepime -Discontinue Zyvox -prednisone -Video swallow to look for aspiration -Symptomatic management of pain -Supplement oxygen as needed -Follow-up cultures -As needed nebulizers -Follow-up testing for autoimmune disease including BLANCA, anti-CCP Type 2 diabetes mellitus-blood sugar control acceptable so far. -Continue home meds -Sliding scale insulin Schizophrenia-stable and doing well. -Home meds Obesity-BMI still over 50 Maintenance issues - -DVT prophylaxis-mechanical -GI prophylaxis-PPI -Nutrition-consistent carbohydrates Disposition -I anticipate discharge home after the hospital stay Primary care physician -Dr. Crystal Loza
--- NOTE | 2021-09-30 15:40 | CR ---
Swallowing Function w Video INDICATION: No Clinical Info Fluoro images obtained one TECHNIQUE: Video swallowing study performed in conjunction with the Speech Pathology Staff. Patient was given barium in varying consistencies. Swallowing was observed fluoroscopically. FINDINGS: Patient swallowed thin and thick liquids without significant difficulty. There was some delay in initiating swallowing reflex. This is also seen with pudding textures and solids. There is no penetration the airway or aspiration seen See Speech Pathology Staff note for additional details.
[2021-09-30] MEDS: Levofloxacin/Dextrose 5%-Water 750 MG in Premix Bag 1 BAG IV SCH (16:49)
[2021-09-30] MEDS: rOPINIRole 1 MG Tab PO SCH (21:27)
[2021-09-30] MEDS: CLOZAPINE 100 MG PO SCH (21:28)
[2021-09-30] MEDS: Polyethylene Glycol 3350 Powder 17 GM Packet PO SCH (21:28)
[2021-10-01] MEDS: Cefepime 1 GM in Sodium Chloride 0.9% 50 ML IV SCH ×2 (01:54→09:55)
[2021-10-01] MEDS: oxyCODONE 5 MG Tab PO PRN ×4 (06:44→18:57)
[2021-10-01] MEDS: Insulin Lispro 100 Unit/ML 3 ML KwikPen SUBCUT SCH ×4 (07:31→22:16)
[2021-10-01] MEDS: Cholecalciferol (Vitamin D3) 25 MCG Tab PO SCH (07:53)
[2021-10-01] MEDS: metFORMIN 500 MG Tab PO SCH ×2 (07:53→16:19)
[2021-10-01] MEDS: Pantoprazole 40 MG Tab.CR PO SCH (07:53)
[2021-10-01] MEDS: Ascorbic Acid 500 MG Tab PO SCH (07:53)
[2021-10-01] MEDS ORDERED: predniSONE 20 MG Tab PO SCH (08:00)
[2021-10-01] MEDS: ALPRAZolam 0.5 MG Tab PO SCH ×3 (09:54→20:11)
[2021-10-01] MEDS: OLANZapine 5 MG Tab PO SCH ×2 (09:55→20:14)
[2021-10-01] MEDS: Citalopram 20 MG Tab PO SCH (09:55)
[2021-10-01] MEDS: Zinc (Zinc Gluconate) 50 MG Tab PO SCH (09:55)
[2021-10-01] MEDS: tiZANidine 2 MG Tab PO SCH ×3 (09:55→20:14)
[2021-10-01] MEDS: Estradiol 0.5 MG Tab PO SCH (09:55)
[2021-10-01] MEDS: Lactobacillus Rhamnosus GG (Probiotic) Cap PO SCH ×2 (09:55→20:12)
[2021-10-01] MEDS: Gabapentin 400 MG Cap PO SCH ×3 (09:55→20:12)
--- NOTE | 2021-10-01 13:35 | PCM.PN ---
- General Info Date of Service: 10/01/21 Subjective Update: Ms. Shane has experienced improvement in fatigue and shortness of breath over the last 24 hours. Level of supplemental oxygen requirement has decreased and she feels subjectively less short of breath. Overall energy level and appetite seem to be improved. Functional Status: Reports: Tolerating Diet, Ambulating, Urinating - Review of Systems General: Reports: Weakness, Fatigue. Denies: Fever, Chills Pulmonary: Reports: Shortness of Breath. Denies: Pleuritic Chest Pain, Cough, Sputum, Hemoptysis, Wheezing Cardiovascular: Reports: Dyspnea on Exertion. Denies: Chest Pain, Palpitations, Orthopnea, PND, Edema, Lightheadedness Gastrointestinal: Reports: No Symptoms Genitourinary: Reports: No Symptoms - Patient Data Vitals - Most Recent: Last Vital Signs Temp 96.3 F L 10/01/21 07:54 Pulse 96 10/01/21 07:54 Resp 18 10/01/21 07:54 BP 120/62 10/01/21 07:54 Pulse Ox 89 L 10/01/21 07:54 Weight - Most Recent: 260 lb I&O - Last 24 Hours: Intake & Output 09/30/21 10/01/21 10/01/21 22:59 06:59 14:59 Intake Total 2100 720 Output Total 3100 1000 Balance -1000 -1000 720 Lab Results Last 24 Hours: Laboratory Results - last 24 hr 09/30/21 09/30/21 10/01/21 Range/Units 16:32 21:05 07:22 POC Glucose 217 H 108 H 99 (74-106) mg/dL 10/01/21 Range/Units 11:53 POC Glucose 136 H (74-106) mg/dL Diego Results Last 24 Hours: Microbiology 09/26/21 09:45 Aerobic Blood Culture - Final Blood - Arterial Line - Direct Stick NO GROWTH AFTER 5 DAYS Anaerobic Blood Culture - Final NO GROWTH AFTER 5 DAYS 09/26/21 09:45 Aerobic Blood Culture - Final Blood - Arm, Right Gram Positive Rods Anaerobic Blood Culture - Final NO GROWTH AFTER 5 DAYS Med Orders - Current: Current Medications Acetaminophen (Acetaminophen 325 Mg Tab) 650 mg PO Q4H PRN PRN Reason: Pain (Mild 1-3)/fever Last Admin: 09/29/21 08:13 Dose: 650 mg Documented by: Albuterol (Albuterol 0.083% 2.5 Mg/3 Ml Neb Soln) 2.5 mg NEB Q4H PRN PRN Reason: Shortness Of Breath/wheezing Alprazolam (Alprazolam 0.5 Mg Tab) 1 mg PO TID [facility] Last Admin: 10/01/21 13:20 Dose: 1 mg Documented by: Ascorbic Acid (Ascorbic Acid 500 Mg Tab) 500 mg PO DAILY@0800 [facility] Last Admin: 10/01/21 07:53 Dose: 500 mg Documented by: Cholecalciferol (Cholecalciferol (Vitamin D3) 25 Mcg Tab) 25 mcg PO DAILY@0800 [facility] Last Admin: 10/01/21 07:53 Dose: 25 mcg Documented by: Citalopram Hydrobromide (Citalopram 20 Mg Tab) 40 mg PO DAILY [facility] Last Admin: 10/01/21 09:55 Dose: 40 mg Documented by: Estradiol (Estradiol 0.5 Mg Tab) 1.5 mg PO DAILY [facility] Last Admin: 10/01/21 09:55 Dose: 1.5 mg Documented by: Gabapentin (Gabapentin 400 Mg Cap) 800 mg PO TID [facility] Last Admin: 10/01/21 13:21 Dose: 800 mg Documented by: Cefepime HCl 1 gm/ Sodium (Chloride) 50 mls @ 100 mls/hr IV Q8H [facility] Last Admin: 10/01/21 09:55 Dose: 100 mls/hr Documented by: Levofloxacin/Dextrose 750 mg/ (Premix) 150 mls @ 100 mls/hr IV Q24H [facility] Last Admin: 09/30/21 16:49 Dose: 100 mls/hr Documented by: Insulin Human Lispro (Insulin Lispro 100 Unit/Ml 3 Ml Kwikpen) 0 unit SUBCUT QIDACANDBED [facility]; Protocol Last Admin: 10/01/21 11:57 Dose: Not Given Documented by: Lactobacillus Rhamnosus (Lactobacillus Rhamnosus Gg (Probiotic) Cap) 1 cap PO BID [facility] Last Admin: 10/01/21 09:55 Dose: 1 cap Documented by: Lorazepam (Lorazepam 2 Mg/Ml Sdv) 0.5 mg IVPUSH Q4H PRN PRN Reason: Nausea/Vomiting Magnesium Hydroxide (Magnesium Hydroxide 400 Mg/5 Ml Susp 30 Ml Cup) 30 ml PO Q 12H PRN PRN Reason: Constipation Metformin HCl (Metformin 500 Mg Tab) 500 mg PO BIDMEALS [facility] Last Admin: 10/01/21 07:53 Dose: 500 mg Documented by: Morphine Sulfate (Morphine 2 Mg/Ml Syringe) 2 mg IVPUSH Q2H PRN PRN Reason: Pain (severe 7-10) (Dulaglutide [ Trulicity] 0.75 Mg/0 .5 Ml Pen.Injctr)* Pom* 0 mg SUBCUT Th@0900 [facility] Olanzapine (Olanzapine 5 Mg Tab) 15 mg PO BID [facility] Last Admin: 10/01/21 09:55 Dose: 15 mg Documented by: Ondansetron HCl (Ondansetron 4 Mg/2 Ml Sdv) 4 mg IV Q6H PRN PRN Reason: Nausea/Vomiting Ondansetron HCl (Ondansetron 4 Mg Tab.Dis) 4 mg PO Q6H PRN PRN Reason: Nausea able to take PO Oxycodone HCl (Oxycodone 5 Mg Tab) 5 mg PO Q4H PRN PRN Reason: Pain Last Admin: 10/01/21 10:53 Dose: 5 mg Documented by: Pantoprazole Sodium (Pantoprazole 40 Mg Tab.Cr) 40 mg PO ACBREAKFAST [facility] Last Admin: 10/01/21 07:53 Dose: 40 mg Documented by: (Clozapine 100 Mg (Tablet) *Pt Own Med*) 0 each PO BEDTIME [facility] Last Admin: 09/30/21 21:28 Dose: 1 each Documented by: Polyethylene Glycol (Polyethylene Glycol 3350 Powder 17 Gm Packet) 17 gm PO BEDTIME [facility] Last Admin: 09/30/21 21:28 Dose: 17 gm Documented by: Prednisone (Prednisone 20 Mg Tab) 20 mg PO WITHBREAKFAST [facility] Last Admin: 10/01/21 07:53 Dose: 20 mg Documented by: Ropinirole HCl (Ropinirole 1 Mg Tab) 1 mg PO BEDTIME [facility] Last Admin: 09/30/21 21:27 Dose: 1 mg Documented by: Senna/Docusate Sodium (Docusate Sodium/Sennosides 50-8.6 Mg Tab) 1 tab PO BID PRN PRN Reason: Constipation Sodium Chloride (Sodium Chloride 0.9% 10 Ml Syringe) 10 ml FLUSH ASDIRECTED PRN PRN Reason: Keep Vein Open Tizanidine HCl (Tizanidine 2 Mg Tab) 2 mg PO TID [facility] Last Admin: 10/01/21 13:21 Dose: 2 mg Documented by: Zinc Gluconate (Zinc (Zinc Gluconate) 50 Mg Tab) 50 mg PO DAILY [facility] Last Admin: 10/01/21 09:55 Dose: 50 mg Documented by: Discontinued Medications Acetaminophen (Acetaminophen 325 Mg Tab) 650 mg PO NOW ONE Stop: 09/26/21 10:07 Last Admin: 09/26/21 10:26 Dose: 650 mg Documented by: Hydrocodone Bitart/Acetaminophen (Acetaminophen/Hydrocodone 325-5 Mg Tab) 1 tab PO ONETIME ONE Stop: 09/26/21 14:30 Last Admin: 09/26/21 14:35 Dose: 1 tab Documented by: Dexamethasone (Dexamethasone 4 Mg/Ml Sdv) Confirm Administered Dose 4 mg .ROUTE .STK-MED ONE Stop: 09/27/21 07:57 Fentanyl (Fentanyl 100 Mcg/2 Ml Sdv) Confirm Administered Dose 100 mcg .ROUTE .STK-MED ONE Stop: 09/27/21 07:01 Glycopyrrolate (Glycopyrrolate 0.2 Mg/Ml 5 Ml Mdv) Confirm Administered Dose 1 mg .ROUTE .STK-MED ONE Stop: 09/27/21 06:25 Sodium Chloride (Normal Saline) 1,000 mls @ 999 mls/hr IV BOLUS ONE; Protocol Stop: 09/26/21 10:16 Last Admin: 09/26/21 18:56 Dose: Not Given Documented by: Vancomycin HCl 1.5 gm/ Sodium (Chloride) 250 mls @ 167 mls/hr IV STAT ONE Stop: 09/26/21 10:45 Last Admin: 09/26/21 10:35 Dose: 167 mls/hr Documented by: Lactated Ringer's (Ringers, Lactated) 2,500 mls @ 999 mls/hr IV BOLUS [facility] Cefepime HCl 2 gm/ Sodium (Chloride) 50 mls @ 100 mls/hr IV STAT ONE Stop: 09/26/21 10:29 Last Admin: 09/26/21 10:03 Dose: 100 mls/hr Documented by: Sodium Chloride (Normal Saline) Confirm Administered Dose 10 mls @ as directed .ROUTE .STK-MED ONE Stop: 09/27/21 06:21 Linezolid 600 mg/ Premix 300 mls @ 300 mls/hr IV Q12H [facility] Last Admin: 09/30/21 11:36 Dose: 300 mls/hr Documented by: Ketamine HCl (Ketamine 500 Mg/5 Ml Mdv) Confirm Administered Dose 500 mg .ROUTE .STK-MED ONE Stop: 09/27/21 06:20 Lidocaine (Lidocaine 4% Top Soln Lta 4 Ml Syringe Kit) Confirm Administered Dose 4 ml .ROUTE .STK-MED ONE Stop: 09/27/21 06:25 Lidocaine HCl (Lidocaine 2% Viscous Solution 15 Ml Cup) Confirm Administered Dose 15 ml .ROUTE .STK-MED ONE Stop: 09/27/21 07:18 Lidocaine HCl (Lidocaine 4% Top Soln 50 Ml Bottle) Confirm Administered Dose 50 ml .ROUTE .STK-MED ONE Stop: 09/27/21 07:18 Lidocaine HCl (Lidocaine 2% Viscous Solution 15 Ml Cup) 10 ml GTUBE .STK-MED ONE Stop: 09/27/21 07:41 Last Admin: 09/27/21 07:40 Dose: 10 ml Documented by: Lidocaine HCl (Lidocaine 4% Top Soln 50 Ml Bottle) 50 ml PO .STK-MED ONE Stop: 09/27/21 07:42 Last Admin: 09/27/21 07:41 Dose: 50 ml Documented by: Methylprednisolone Sodium Succinate (Methylprednisolone Sodium Succinate 125 Mg/2 Ml Sdv) 125 mg IVPUSH ONETIME ONE Stop: 09/26/21 16:01 Last Admin: 09/26/21 16:25 Dose: 125 mg Documented by: Methylprednisolone Sodium Succinate (Methylprednisolone Sodium Succinate 125 Mg/2 Ml Sdv) 62.5 mg IVPUSH Q8H [facility] Last Admin: 09/28/21 05:33 Dose: 62.5 mg Documented by: Midazolam HCl (Midazolam 1 Mg/Ml 2 Ml Sdv) Confirm Administered Dose 2 mg .ROUTE .STK-MED ONE Stop: 09/27/21 06:20 Ondansetron HCl (Ondansetron 4 Mg/2 Ml Sdv) Confirm Administered Dose 4 mg .ROUTE .STK-MED ONE Stop: 09/27/21 06:25 Oxycodone HCl (Oxycodone 5 Mg Tab) 5 - 10 mg PO Q4H PRN PRN Reason: Pain Last Admin: 09/29/21 13:17 Dose: 5 mg Documented by: Polyethylene Glycol (Polyethylene Glycol 3350 Powder 17 Gm Packet) 17 gm PO DAILY [facility] Last Admin: 09/28/21 21:42 Dose: 17 gm Documented by: Prednisone (Prednisone 20 Mg Tab) 40 mg PO WITHBREAKFAST [facility] Last Admin: 09/30/21 07:50 Dose: 40 mg Documented by: Prednisone (Prednisone 20 Mg Tab) 40 mg PO ONETIME ONE Stop: 09/28/21 11:01 Last Admin: 09/28/21 11:49 Dose: 40 mg Documented by: Propofol (Propofol 200 Mg/20 Ml Sdv) Confirm Administered Dose 200 mg .ROUTE .STK-MED ONE Stop: 09/27/21 06:25 - Exam Quality Assessment: Supplemental Oxygen General: Alert, Oriented, Cooperative, No Acute Distress Lungs: Clear to Auscultation, Normal Respiratory Effort, Decreased Breath Sounds Cardiovascular: Regular Rate, Regular Rhythm, No Murmurs GI/Abdominal Exam: Soft, Non-Tender, No Organomegaly, No Distention Extremities: Non-Tender, No Pedal Edema - Patient Data Lab Results Last 24 hrs: Laboratory Results - last 24 hr 09/30/21 09/30/21 10/01/21 Range/Units 16:32 21:05 07:22 POC Glucose 217 H 108 H 99 (74-106) mg/dL 10/01/21 Range/Units 11:53 POC Glucose 136 H (74-106) mg/dL Result Diagrams: 09/30/21 04:20 09/30/21 04:20 Diego Results Last 24 hrs: Microbiology 09/26/21 09:45 Aerobic Blood Culture - Final Blood - Arterial Line - Direct Stick NO GROWTH AFTER 5 DAYS Anaerobic Blood Culture - Final NO GROWTH AFTER 5 DAYS 09/26/21 09:45 Aerobic Blood Culture - Final Blood - Arm, Right Gram Positive Rods Anaerobic Blood Culture - Final NO GROWTH AFTER 5 DAYS Sepsis Event Note - Evaluation Sepsis Screening Result: No Definite Risk - Focused Exam Vital Signs: Vital Signs Temp Pulse Resp BP Pulse Ox 10/01/21 07:54 96.3 F L 96 18 120/62 89 L 10/01/21 01:59 96.2 F L 73 18 144/97 H 91 L - Problem List Review Problem List Initiated/Reviewed/Updated: Yes - My Orders Last 24 Hours: My Active Orders 10/01/21 08:00 predniSONE 20 mg PO WITHBREAKFAST - Plan Plan:: ASSESSMENT AND PLAN - Recurrent pneumonia-complicated by acute respiratory failure with hypoxia. Bronchoscopy revealed inflammation of the tracheobronchial tree. Cultures from the bronchial washings growing oral contamination. She does have 1+ blood culture but I suspect this is contaminant. Video swallowing study showed no evidence of aspiration -Empiric antibiotic coverage with levofloxacin -Discontinue cefepime -Symptomatic management of pain -Supplement oxygen as needed -Follow-up cultures -As needed nebulizers -Follow-up testing for autoimmune disease including BLANCA, anti-CCP Type 2 diabetes mellitus-blood sugar control acceptable so far. -Continue home meds -Sliding scale insulin Schizophrenia-stable and doing well. -Home meds Obesity-BMI still over 50 Maintenance issues - -DVT prophylaxis-mechanical -GI prophylaxis-PPI -Nutrition-consistent carbohydrates Disposition -I anticipate discharge home after the hospital stay Primary care physician -Dr. Crystal Loza
--- NOTE | 2021-10-01 13:52 | PCM.DCSUM1 ---
Discharge Summary - Hospital Course Brief History: Ms. Shane is a 41-year-old woman who was admitted through the emergency department with shortness of breath and weakness secondary to bilateral pneumonia. - Discharge Data Discharge Date: 10/02/21 Discharge Disposition: DC/Tfer to [facility] Group Home Condition: Fair - Referral to Home Health Primary Care Physician: PCP None - Discharge Diagnosis/Problem(s) (1) Aspiration pneumonia SNOMED Code(s): 976763910 ICD Code: J69.0 - PNEUMONITIS DUE TO INHALATION OF FOOD AND VOMIT Status: Acute Current Visit: Yes (2) Acute respiratory failure with hypoxia SNOMED Code(s): 61998317, 174665545 ICD Code: J96.01 - ACUTE RESPIRATORY FAILURE WITH HYPOXIA Status: Acute Priority: High Current Visit: Yes (3) Recurrent pneumonia SNOMED Code(s): 403117956 ICD Code: J18.9 - PNEUMONIA, UNSPECIFIED ORGANISM Status: Acute Current Visit: Yes (4) Obesity hypoventilation syndrome SNOMED Code(s): 01154250, 616079385 ICD Code: E66.2 - MORBID (SEVERE) OBESITY WITH ALVEOLAR HYPOVENTILATION Status: Acute Current Visit: No (5) Type 2 diabetes mellitus SNOMED Code(s): 86255578 ICD Code: E11.9 - TYPE 2 DIABETES MELLITUS WITHOUT COMPLICATIONS Status: Chronic Current Visit: No Qualifiers: Diabetes mellitus mcfp insulin use: without professor of rhetoric use Diabetes mellitus complication status: without complication Qualified Code(s): E11.9 - Type 2 diabetes mellitus without complications - Patient Summary/Data Consults: Consultations 09/26/21 15:20 Consult to Physician [CONS] Routine Consulting Provider: Pedro Luis Anderson Call Completed to Consulting Physician: Yes Reason for Consult: recurrent PNA, consider bronch Person Notified: THAO Date Notified: 09/26/21 Special Instructions: bronch in am 7:30 Hospital Course: Ms. Shane presented to the emergency room with burning in her chest, shortness of breath and oxygen saturations of 87% despite being on oxygen at home. She was recently hospitalized and treated for pneumonia/pneumonitis. She felt fairly well after hospital discharge and was slowly improving but still requiring oxygen. Over the past 24 hours she has developed diffuse myalgias, fatigue, shortness of breath as well as burning in her anterior central chest. She describes the pain as moderate. This is worse with deep breathing. No obvious triggers to make it worse otherwise. Work-up in the emergency room revealed a white blood cell count of 21,000 and a mildly elevated lactic acid at just over 4. Vital signs are otherwise stable. Chest x-ray showed some very subtle diffuse changes. CT of the chest showed improving infiltrates on the left and also the right lower lung but increasing on the right upper lung. She has hypoxic and requiring supplemental oxygen. She did receive broad-spectrum antibiotics in the emergency room. Continued on broad-spectrum antibiotic therapy with linezolid, cefepime, and levofloxacin. Of concern is her history of 2 previous episodes of pneumonia occurring within the past few months. Because of this Dr. Anderson performed bronchoscopy. She was noted to have diffuse inflammation in the airways, cultures were obtained but grew out only oral virgil. 1 of 4 cultures obtained from blood at the time of admission grew out gram-positive rods which was felt to represent a contaminant. On further questioning the patient reported episodes of significant drooling at night and waking up with coughing. It was felt very likely that she was experiencing episodes of aspiration causing her recurrent pneumonia. Head of her bed was kept elevated at 45 degrees during her hospital stay. She has had the upper part of her bed on blocks at home. She will be prescribed a hospital bed for positioning at home this is required to prevent further episodes of aspiration and is not felt to be feasible in an ordinary bed. Use of the hospital bed will facilitate keeping her head elevated at 45 degrees and hopefully will prevent further episodes of aspiration. Echocardiogram was obtained during hospital stay to assess whether there was any cardiac factor involved in her ongoing hypoxia. Echocardiogram showed normal left ventricular systolic and diastolic function with no other significant abnormalities. Video swallowing study was also obtained and showed no evidence of aspiration. She will be discharged home on home oxygen which is already been arranged for her. She is felt to have a component of obesity related hypoventilation syndrome. She will be discharged home on levofloxacin 750 mg p.o. daily for an additional 4 days. Activity will be as tolerated and she will remain on a diabetic diet. Glucose levels were monitored throughout her hospital stay and she was managed with usual outpatient medications in addition to sliding scale NovoLog. Follow-up appointment will be scheduled with her primary care provider within 1 week. - Patient Instructions Diet: Diabetic Diet Activity: As Tolerated Other/Special Instructions: Please obtain hospital bed for the patient, she should keep head of bed elevated at 45 degrees at all times to prevent further episodes of aspiration. Please schedule follow-up appointment with primary care provider within 1 week. - Discharge Plan *PRESCRIPTION DRUG MONITORING PROGRAM REVIEWED*: Not Applicable *COPY OF PRESCRIPTION DRUG MONITORING REPORT IN PATIENT ROSIE: Not Applicable Prescriptions/Med Rec: levoFLOXacin [Levaquin] 750 mg PO DAILY #4 tab Home Medications: Home Meds OLANZapine [Olanzapine] 15 mg PO BID 07/23/20 [History] Omeprazole 20 mg PO DAILY 07/23/20 [History] cloZAPine [Clozapine] 100 mg PO BEDTIME 07/23/20 [History] estradioL [Estradiol] 1.5 mg PO DAILY 07/23/20 [History] rOPINIRole [Requip] 1 mg PO BEDTIME 07/23/20 [History] tiZANidine 2 mg PO TID 07/23/20 [History] lisinopriL [Prinivil] 2.5 mg PO BID 11/25/20 [History] Dulaglutide [Trulicity] 0.75 mg SQ WEEKLY 07/15/21 [History] polyethylene glycoL 3350 [MiraLAX] 17 gm PO DAILY 07/15/21 [History] Ascorbic Acid [Vitamin C] 500 mg PO DAILY@0800 #30 tablet 07/19/21 [Rx] Cholecalciferol (Vitamin D3) [Vitamin D3] 25 mcg PO DAILY@0800 #30 tablet 07/19/21 [Rx] Multivit with Calcium,Iron,Min [One Daily Women's] 1 each PO DAILY #30 tablet 07/19/21 [Rx] *Quercetin 250 mg PO DAILY 09/07/21 [History] ALPRAZolam [Alprazolam] 1 mg PO TID 09/07/21 [History] Gabapentin [Neurontin] 800 mg PO TID 09/07/21 [History] Piroxicam 20 mg PO DAILY 09/07/21 [History] Zinc 50 mg PO DAILY 09/07/21 [History] metFORMIN [Glucophage XR] 1,000 mg PO DAILY 09/07/21 [History] Citalopram Hydrobromide [Celexa] 40 mg PO DAILY 09/13/21 [History] levoFLOXacin [Levaquin] 750 mg PO DAILY #4 tab 10/01/21 [Rx] Patient Handouts: Fall Prevention in the Home, Adult, [id number], Community- Acquired Pneumonia, Adult, [id number] Forms: ED Department Discharge Referrals: Arthur Salazar MD [Physician] - 10/08/21 1:40 pm - Discharge Summary/Plan Comment DC Time >30 min.: No Total # of Minutes for Discharge Time: 25 - Patient Data Vitals - Most Recent: Last Vital Signs Temp 96.3 F L 10/01/21 07:54 Pulse 96 10/01/21 07:54 Resp 18 10/01/21 07:54 BP 120/62 10/01/21 07:54 Pulse Ox 89 L 10/01/21 07:54 Weight - Most Recent: 260 lb I&O - Last 24 hours: Intake & Output 09/30/21 10/01/21 10/01/21 22:59 06:59 14:59 Intake Total 2100 720 Output Total 3100 1000 Balance -1000 -1000 720 Lab Results - Last 24 hrs: Laboratory Results - last 24 hr 09/30/21 09/30/21 10/01/21 Range/Units 16:32 21:05 07:22 POC Glucose 217 H 108 H 99 (74-106) mg/dL 10/01/21 Range/Units 11:53 POC Glucose 136 H (74-106) mg/dL ZACKERY Results - Last 24 hrs: Microbiology 09/26/21 09:45 Aerobic Blood Culture - Final Blood - Arterial Line - Direct Stick NO GROWTH AFTER 5 DAYS Anaerobic Blood Culture - Final NO GROWTH AFTER 5 DAYS 09/26/21 09:45 Aerobic Blood Culture - Final Blood - Arm, Right Gram Positive Rods Anaerobic Blood Culture - Final NO GROWTH AFTER 5 DAYS Med Orders - Current: Current Medications Acetaminophen (Acetaminophen 325 Mg Tab) 650 mg PO Q4H PRN PRN Reason: Pain (Mild 1-3)/fever Last Admin: 09/29/21 08:13 Dose: 650 mg Documented by: Albuterol (Albuterol 0.083% 2.5 Mg/3 Ml Neb Soln) 2.5 mg NEB Q4H PRN PRN Reason: Shortness Of Breath/wheezing Alprazolam (Alprazolam 0.5 Mg Tab) 1 mg PO TID [facility] Last Admin: 10/01/21 13:20 Dose: 1 mg Documented by: Ascorbic Acid (Ascorbic Acid 500 Mg Tab) 500 mg PO DAILY@0800 [facility] Last Admin: 10/01/21 07:53 Dose: 500 mg Documented by: Cholecalciferol (Cholecalciferol (Vitamin D3) 25 Mcg Tab) 25 mcg PO DAILY@0800 [facility] Last Admin: 10/01/21 07:53 Dose: 25 mcg Documented by: Citalopram Hydrobromide (Citalopram 20 Mg Tab) 40 mg PO DAILY [facility] Last Admin: 10/01/21 09:55 Dose: 40 mg Documented by: Estradiol (Estradiol 0.5 Mg Tab) 1.5 mg PO DAILY [facility] Last Admin: 10/01/21 09:55 Dose: 1.5 mg Documented by: Gabapentin (Gabapentin 400 Mg Cap) 800 mg PO TID [facility] Last Admin: 10/01/21 13:21 Dose: 800 mg Documented by: Levofloxacin/Dextrose 750 mg/ (Premix) 150 mls @ 100 mls/hr IV Q24H [facility] Last Admin: 09/30/21 16:49 Dose: 100 mls/hr Documented by: Insulin Human Lispro (Insulin Lispro 100 Unit/Ml 3 Ml Kwikpen) 0 unit SUBCUT QIDACANDBED [facility]; Protocol Last Admin: 10/01/21 11:57 Dose: Not Given Documented by: Lactobacillus Rhamnosus (Lactobacillus Rhamnosus Gg (Probiotic) Cap) 1 cap PO BID [facility] Last Admin: 10/01/21 09:55 Dose: 1 cap Documented by: Lorazepam (Lorazepam 2 Mg/Ml Sdv) 0.5 mg IVPUSH Q4H PRN PRN Reason: Nausea/Vomiting Magnesium Hydroxide (Magnesium Hydroxide 400 Mg/5 Ml Susp 30 Ml Cup) 30 ml PO Q12H PRN PRN Reason: Constipation Metformin HCl (Metformin 500 Mg Tab) 500 mg PO BIDMEALS [facility] Last Admin: 10/01/21 07:53 Dose: 500 mg Documented by: Morphine Sulfate (Morphine 2 Mg/Ml Syringe) 2 mg IVPUSH Q2H PRN PRN Reason: Pain (severe 7-10) (Dulaglutide [ Trulicity] 0.75 Mg/0 .5 Ml Pen.Injctr)* Pom* 0 mg SUBCUT Th@0900 [facility] Olanzapine (Olanzapine 5 Mg Tab) 15 mg PO BID [facility] Last Admin: 10/01/21 09:55 Dose: 15 mg Documented by: Ondansetron HCl (Ondansetron 4 Mg/2 Ml Sdv) 4 mg IV Q6H PRN PRN Reason: Nausea/Vomiting Ondansetron HCl (Ondansetron 4 Mg Tab.Dis) 4 mg PO Q6H PRN PRN Reason: Nausea able to take PO Oxycodone HCl (Oxycodone 5 Mg Tab) 5 mg PO Q4H PRN PRN Reason: Pain Last Admin: 10/01/21 10:53 Dose: 5 mg Documented by: Pantoprazole Sodium (Pantoprazole 40 Mg Tab.Cr) 40 mg PO ACBREAKFAST [facility] Last Admin: 10/01/21 07:53 Dose: 40 mg Documented by: (Clozapine 100 Mg (Tablet) *Pt Own Med*) 0 each PO BEDTIME [facility] Last Admin: 09/30/21 21:28 Dose: 1 each Documented by: Polyethylene Glycol (Polyethylene Glycol 3350 Powder 17 Gm Packet) 17 gm PO BEDTIME [facility] Last Admin: 09/30/21 21:28 Dose: 17 gm Documented by: Ropinirole HCl (Ropinirole 1 Mg Tab) 1 mg PO BEDTIME [facility] Last Admin: 09/30/21 21:27 Dose: 1 mg Documented by: Senna/Docusate Sodium (Docusate Sodium/Sennosides 50-8.6 Mg Tab) 1 tab PO BID PRN PRN Reason: Constipation Sodium Chloride (Sodium Chloride 0.9% 10 Ml Syringe) 10 ml FLUSH ASDIRECTED PRN PRN Reason: Keep Vein Open Tizanidine HCl (Tizanidine 2 Mg Tab) 2 mg PO TID [facility] Last Admin: 10/01/21 13:21 Dose: 2 mg Documented by: Zinc Gluconate (Zinc (Zinc Gluconate) 50 Mg Tab) 50 mg PO DAILY [facility] Last Admin: 10/01/21 09:55 Dose: 50 mg Documented by: Discontinued Medications Acetaminophen (Acetaminophen 325 Mg Tab) 650 mg PO NOW ONE Stop: 09/26/21 10:07 Last Admin: 09/26/21 10:26 Dose: 650 mg Documented by: Hydrocodone Bitart/Acetaminophen (Acetaminophen/Hydrocodone 325-5 Mg Tab) 1 tab PO ONETIME ONE Stop: 09/26/21 14:30 Last Admin: 09/26/21 14:35 Dose: 1 tab Documented by: Dexamethasone (Dexamethasone 4 Mg/Ml Sdv) Confirm Administered Dose 4 mg .ROUTE .STK-MED ONE Stop: 09/27/21 07:57 Fentanyl (Fentanyl 100 Mcg/2 Ml Sdv) Confirm Administered Dose 100 mcg .ROUTE .STK-MED ONE Stop: 09/27/21 07:01 Glycopyrrolate (Glycopyrrolate 0.2 Mg/Ml 5 Ml Mdv) Confirm Administered Dose 1 mg .ROUTE .STK-MED ONE Stop: 09/27/21 06:25 Sodium Chloride (Normal Saline) 1,000 mls @ 999 mls/hr IV BOLUS ONE; Protocol Stop: 09/26/21 10:16 Last Admin: 09/26/21 18:56 Dose: Not Given Documented by: Vancomycin HCl 1.5 gm/ Sodium (Chloride) 250 mls @ 167 mls/hr IV STAT ONE Stop: 09/26/21 10:45 Last Admin: 09/26/21 10:35 Dose: 167 mls/hr Documented by: Lactated Ringer's (Ringers, Lactated) 2,500 mls @ 999 mls/hr IV BOLUS [place] Cefepime HCl 2 gm/ Sodium (Chloride) 50 mls @ 100 mls/hr IV STAT ONE Stop: 09/26/21 10:29 Last Admin: 09/26/21 10:03 Dose: 100 mls/hr Documented by: Cefepime HCl 1 gm/ Sodium (Chloride) 50 mls @ 100 mls/hr IV Q8H [facility] Last Admin: 10/01/21 09:55 Dose: 100 mls/hr Documented by: Sodium Chloride (Normal Saline) Confirm Administered Dose 10 mls @ as directed .ROUTE .[facility]-MED ONE Stop: 09/27/21 06:21 Linezolid 600 mg/ Premix 300 mls @ 300 mls/hr IV Q12H [facility] Last Admin: 09/30/21 11:36 Dose: 300 mls/hr Documented by: Ketamine HCl (Ketamine 500 Mg/5 Ml Mdv) Confirm Administered Dose 500 mg .ROUTE .STK-MED ONE Stop: 09/27/21 06:20 Lidocaine (Lidocaine 4% Top Soln Lta 4 Ml Syringe Kit) Confirm Administered Dose 4 ml .ROUTE .STK-MED ONE Stop: 09/27/21 06:25 Lidocaine HCl (Lidocaine 2% Viscous Solution 15 Ml Cup) Confirm Administered Dose 15 ml .ROUTE .STK-MED ONE Stop: 09/27/21 07:18 Lidocaine HCl (Lidocaine 4% Top Soln 50 Ml Bottle) Confirm Administered Dose 50 ml .ROUTE .STK-MED ONE Stop: 09/27/21 07:18 Lidocaine HCl (Lidocaine 2% Viscous Solution 15 Ml Cup) 10 ml GTUBE .STK-MED ONE Stop: 09/27/21 07:41 Last Admin: 09/27/21 07:40 Dose: 10 ml Documented by: Lidocaine HCl (Lidocaine 4% Top Soln 50 Ml Bottle) 50 ml PO .STK-MED ONE Stop: 09/27/21 07:42 Last Admin: 09/27/21 07:41 Dose: 50 ml Documented by: Methylprednisolone Sodium Succinate (Methylprednisolone Sodium Succinate 125 Mg/2 Ml Sdv) 125 mg IVPUSH ONETIME ONE Stop: 09/26/21 16:01 Last Admin: 09/26/21 16:25 Dose: 125 mg Documented by: Methylprednisolone Sodium Succinate (Methylprednisolone Sodium Succinate 125 Mg/2 Ml Sdv) 62.5 mg IVPUSH Q8H [facility] Last Admin: 09/28/21 05:33 Dose: 62.5 mg Documented by: Midazolam HCl (Midazolam 1 Mg/Ml 2 Ml Sdv) Confirm Administered Dose 2 mg .ROUTE .STK-MED ONE Stop: 09/27/21 06:20 Ondansetron HCl (Ondansetron 4 Mg/2 Ml Sdv) Confirm Administered Dose 4 mg .ROUTE .STK-MED ONE Stop: 09/27/21 06:25 Oxycodone HCl (Oxycodone 5 Mg Tab) 5 - 10 mg PO Q4H PRN PRN Reason: Pain Last Admin: 09/29/21 13:17 Dose: 5 mg Documented by: Polyethylene Glycol (Polyethylene Glycol 3350 Powder 17 Gm Packet) 17 gm PO DAILY [facility] Last Admin: 09/28/21 21:42 Dose: 17 gm Documented by: Prednisone (Prednisone 20 Mg Tab) 40 mg PO WITHBREAKFAST [facility] Last Admin: 09/30/21 07:50 Dose: 40 mg Documented by: Prednisone (Prednisone 20 Mg Tab) 40 mg PO ONETIME ONE Stop: 09/28/21 11:01 Last Admin: 09/28/21 11:49 Dose: 40 mg Documented by: Prednisone (Prednisone 20 Mg Tab) 20 mg PO WITHBREAKFAST [facility] Last Admin: 10/01/21 07:53 Dose: 20 mg Documented by: Propofol (Propofol 200 Mg/20 Ml Sdv) Confirm Administered Dose 200 mg .[facility] Stop: 09/27/21 06:25 - Exam Quality Assessment: Reports: Supplemental Oxygen General: Reports: Alert, Oriented, Cooperative, No Acute Distress Lungs: Reports: Clear to Auscultation, Normal Respiratory Effort, Decreased [place] th Sounds Cardiovascular: Reports: Regular Rate, Regular Rhythm, No Murmurs GI/Abdominal Exam: Soft, Non-Tender, No Organomegaly, No Distention Extremities: Non-Tender, No Pedal Edema
[2021-10-01] MEDS: Levofloxacin/Dextrose 5%-Water 750 MG in Premix Bag 1 BAG IV SCH (16:19)
[2021-10-01] MEDS: CLOZAPINE 100 MG PO SCH (20:12)
[2021-10-01] MEDS: Polyethylene Glycol 3350 Powder 17 GM Packet PO SCH (20:12)
[2021-10-01] MEDS: rOPINIRole 1 MG Tab PO SCH (20:14)
[2021-10-02] MEDS: oxyCODONE 5 MG Tab PO PRN ×2 (02:00→07:23)
[2021-10-02] MEDS: Pantoprazole 40 MG Tab.CR PO SCH (08:16)
[2021-10-02] MEDS: Insulin Lispro 100 Unit/ML 3 ML KwikPen SUBCUT SCH (08:17)
[2021-10-02] MEDS: Ascorbic Acid 500 MG Tab PO SCH (08:17)
[2021-10-02] MEDS: metFORMIN 500 MG Tab PO SCH (08:17)
[2021-10-02] MEDS: Citalopram 20 MG Tab PO SCH (08:17)
[2021-10-02] MEDS: Lactobacillus Rhamnosus GG (Probiotic) Cap PO SCH (08:18)
[2021-10-02] MEDS: Cholecalciferol (Vitamin D3) 25 MCG Tab PO SCH (08:18)
[2021-10-02] MEDS: Estradiol 0.5 MG Tab PO SCH (08:20)
[2021-10-02] MEDS: Gabapentin 400 MG Cap PO SCH (08:20)
[2021-10-02] MEDS: tiZANidine 2 MG Tab PO SCH (08:20)
[2021-10-02] MEDS: OLANZapine 5 MG Tab PO SCH (08:21)
[2021-10-02] MEDS: Zinc (Zinc Gluconate) 50 MG Tab PO SCH (08:21)
[2021-10-02] MEDS: ALPRAZolam 0.5 MG Tab PO SCH (08:31)
[2021-10-02] MEDS ORDERED: DULAGLUTIDE 0.75 MG/0.5 ML SUBCUT SCH (09:00)
== END 2021-10-02 09:45 | DRG 177 ==
LOC: JP.ED 08:11 → JP.MS 13:35
PROVIDERS: ADMIT Internal Medicine; ATTEND Hospitalist
PROC: 0B9C7ZX Drainage of Right Upper Lung Lobe, Via Natural or Artificial Opening, Diagnostic (ICD-10-PCS; principal; 2021-09-27)
DX: J18.9 Pneumonia, unspecified organism (principal); J69.0 Pneumonitis due to inhalation of food and vomit; J96.01 Acute respiratory failure with hypoxia; A41.9 Sepsis, unspecified organism; R65.20 Severe sepsis without septic shock; E66.2 Morbid (severe) obesity with alveolar hypoventilation; Z68.43 Body mass index [BMI] 50.0-59.9, adult; F20.2 Catatonic schizophrenia; H54.7 Unspecified visual loss; E11.65 Type 2 diabetes mellitus with hyperglycemia; T38.0X5A Adverse effect of glucocorticoids and synthetic analogues, initial encounter; E78.00 Pure hypercholesterolemia, unspecified; I10 Essential (primary) hypertension; K21.9 Gastro-esophageal reflux disease without esophagitis; Z20.822 Contact with and (suspected) exposure to COVID-19; R32 Unspecified urinary incontinence; F31.9 Bipolar disorder, unspecified; G47.00 Insomnia, unspecified; Z90.89 Acquired absence of other organs; E11.9 Type 2 diabetes mellitus without complications; E55.9 Vitamin D deficiency, unspecified; Z88.2 Allergy status to sulfonamides; Z88.8 Allergy status to other drugs, medicaments and biological substances; Z90.710 Acquired absence of both cervix and uterus; Z91.018 Allergy to other foods; Z79.84 Long term (current) use of oral hypoglycemic drugs; Z79.899 Other long term (current) drug therapy
CPT/HCPCS: 0241U; 36415; 36600; 71045; 71250; 74230; 80048; 80053; 81001; 82728; 82803; 82947; 83605; 83615; 84145; 85025; 85027; 85379; 85651; 86038; 86140; 86200; 87015; 87040; 87070; 87077; 87102; 87116; 87205; 87206; 87220; 88112; 88305; 92611; 93306; 94762; 96365; 96367; 99285; A9270-GY; J0692; J1100; J1815; J1956; J2020; J2250; J2405; J2704; J2930; J3010; J3370; J3490; J7050; J7512

== ENCOUNTER 2021-10-04 09:08 | Emergency (ER) | payer MEDICARE, MEDICAID ==
[2021-10-04] MEDS ORDERED: Albuterol/Ipratropium 3.0-0.5 MG/3 ML Neb Soln NEB ONE (10:03)
--- NOTE | 2021-10-04 10:08 | EDM.PDOC ---
<OfficerSmooth - Last Filed: 10/05/21 16:41> ED HPI GENERAL MEDICAL PROBLEM - General Chief Complaint: Respiratory Problem Stated Complaint: [facility] Time Seen by Provider: 10/04/21 09:54 Source of Information: Reports: Patient, Old Records, RN Notes Reviewed History Limitations: Reports: No Limitations - History of Present Illness INITIAL COMMENTS - FREE TEXT/NARRATIVE: 41-year-old female presents emergency department day were increasing shortness of breath, she arrived by EMS services she was just discharged from the hospital 2 days prior for aspiration pneumonia with respiratory failure causing hypoxia. She has had long history of recurrent pneumonias. At this particular events they did discharge day after felt pretty good and then today progressively gotten worse. - Related Data Allergies Allergy/AdvReac Type Severity Reaction Status Date / Time divalproex sodium Allergy Swelling Verified 10/04/21 09:19 [From Depakote] haloperidol Allergy Other Verified 10/04/21 09:19 pork derived (porcine) Allergy Other Verified 10/04/21 09:19 risperidone Allergy Other Verified 10/04/21 09:19 Sulfa (Sulfonamide Allergy Hives Verified 10/04/21 09:19 Antibiotics) Home Meds: Home Meds OLANZapine [Olanzapine] 15 mg PO BID 07/23/20 [History] Omeprazole 20 mg PO DAILY 07/23/20 [History] cloZAPine [Clozapine] 100 mg PO BEDTIME 07/23/20 [History] estradioL [Estradiol] 1.5 mg PO DAILY 07/23/20 [History] rOPINIRole [Requip] 1 mg PO BEDTIME 07/23/20 [History] tiZANidine 2 mg PO TID 07/23/20 [History] lisinopriL [Prinivil] 2.5 mg PO BID 11/25/20 [History] Dulaglutide [Trulicity] 0.75 mg SQ WEEKLY 07/15/21 [History] polyethylene glycoL 3350 [MiraLAX] 17 gm PO DAILY 07/15/21 [History] Ascorbic Acid [Vitamin C] 500 mg PO DAILY@0800 #30 tablet 07/19/21 [Rx] Cholecalciferol (Vitamin D3) [Vitamin D3] 25 mcg PO DAILY@0800 #30 tablet 07/19/21 [Rx] Multivit with Calcium,Iron,Min [One Daily Women's] 1 each PO DAILY #30 tablet 07/19/21 [Rx] *Quercetin 250 mg PO DAILY 09/07/21 [History] ALPRAZolam [Alprazolam] 1 mg PO TID 09/07/21 [History] Gabapentin [Neurontin] 800 mg PO TID 09/07/21 [History] Piroxicam 20 mg PO DAILY 09/07/21 [History] Zinc 50 mg PO DAILY 09/07/21 [History] metFORMIN [Glucophage XR] 1,000 mg PO DAILY 09/07/21 [History] Citalopram Hydrobromide [Celexa] 40 mg PO DAILY 09/13/21 [History] levoFLOXacin [Levaquin] 750 mg PO DAILY #4 tab 10/01/21 [Rx] Ibuprofen [Motrin] 800 mg PO Q8HR PRN 10/02/21 [History] Past Medical History HEENT History: Reports: Impaired Vision Cardiovascular History: Reports: High Cholesterol, Hypertension Respiratory History: Reports: Intubation, Previous, Pneumonia, Recurrent Other Respiratory History: hospitalized with AF Gastrointestinal History: Reports: GERD Genitourinary History: Reports: Urinary Incontinence Musculoskeletal History: Reports: Other (See Below) Other Musculoskeletal History: plantar fascitis. chronic left shoulder painchronic right knee pain Psychiatric History: Reports: Bipolar, Depression, Psychosis, Schizophrenia, Suicide Attempt, Other (See Below) Other Psychiatric History: catatonia. insomnia Endocrine/Metabolic History: Reports: Diabetes, Type II, Obesity/BMI 30+, Vitamin D Deficiency Hematologic History: Reports: Other (See Below) Other Hematologic History: vitamin D deficency Dermatologic History: Reports: Other (See Below) Other Dermatologic History: rash - Infectious Disease History Infectious Disease History: Reports: None, Chicken Pox - Past Surgical History Head Surgeries/Procedures: Reports: None HEENT Surgical History: Reports: Tonsillectomy Respiratory Surgical History: Reports: Other (See Below) Other Respiratory Surgeries/Procedures: bronchoscopy Female Surgical History: Reports: Hysterectomy Musculoskeletal Surgical History: Reports: Arthroscopic Knee Social & Family History - Family History Family Medical History: No Pertinent Family History - Tobacco Use Tobacco Use Status *Q: Never Tobacco User - Caffeine Use Caffeine Use: Reports: Soda - Recreational Drug Use Recreational Drug Use: No ED ROS GENERAL - Review of Systems Review Of Systems: See Below Constitutional: Reports: Weakness, Fatigue. Denies: Fever, Chills HEENT: Reports: No Symptoms Respiratory: Reports: Shortness of Breath, Cough Cardiovascular: Reports: Dyspnea on Exertion GI/Abdominal: Reports: No Symptoms ED EXAM, GENERAL - Physical Exam Exam: See Below Exam Limited By: No Limitations General Appearance: Alert, WD/WN, No Apparent Distress Respiratory/Chest: No Respiratory Distress, Lungs Clear, Normal Breath Sounds, No Accessory Muscle Use, Chest Non-Tender Cardiovascular: Regular Rate, Rhythm, No Murmur GI/Abdominal: Soft, Non-Tender Course - Re-Assessments/Exams Free Text/Narrative Re-Assessment/Exam: 10/04/21 15:30 Called [facility] at 1400 placed on waiting list, called [facility], all to [facility], [facility] and [facility] no beds available 10/04/21 18:31 10/05/21 07:11 Daily rounding patient states she is not doing well still feels very short of breath difficult for her to breathe no chest pain no nausea vomiting had an uneventful night last night attempted to do the CT scan unfortunately no IV access could be obtained for the CT scan with contrast plan to consult anesthesia today to see if this can be achieved. On exam lungs demonstrate decreased breath sounds are still some rhonchi bilaterally cardiovascular demonstrates a tachycardic rhythm of S1 and S2 abdomen is soft and nontender Assessment Respiratory failure with hypoxia with concern for early sepsis due to the hypotension. She has not been started on Levophed maintains her blood pressure with 2 L bolus of lactated Ringer's. No clear etiology is known for the sepsis. Plan Try and obtain the pathology from the bronchial lavage, also consult hospitalist service this morning for help in management. We will continue to try and find placement she remains on the list at [facility] Departure - Departure Time of Disposition: 16:45 Disposition: DC/Tfer to Acute Hospital 02 Condition: Serious Clinical Impression: Acute respiratory failure with hypoxia Pneumonia Qualifiers: Pneumonia type: due to unspecified organism Laterality: left Lung location: lower lobe of lung Qualified Code(s): J18.9 - Pneumonia, unspecified organism - Discharge Information Referrals: PCP,None [Primary Care Provider] - Forms: ED Department Discharge Sepsis Event Note (ED) - Evaluation Sepsis Screening Result: No Definite Risk - Assessment/Plan Plan: Assessment Acuity = acute Site and laterality = recurrent pneumonia thought to be aspirational Etiology = probable bacterial cause Manifestations = hypoxia Location of injury = Home Lab values = WBC elevated 21 point 4 repeat 24 hours 18.2 consistent leukocytosi s ABG at 4:00 this afternoon reveals a pH 7.36 PCO2 49.5 PO2 of 82.2 and a bicarb 27.2 lactic acid initially 2.2 and then down to 0.8 troponin was negative CRP elevated 16.7 procalcitonin less than 0.05 Covid negative, influenza A and influenza B negative RSV negative CT scan demonstrates a bilateral pneumonia lower lobes no pulmonary embolism can be identified past the first segment however further analysis could not be done because of the patient's body habitus. Bronchioloalveolar washings revealed no growth cultures and consistent with oral contaminant Plan Thus far she has received 2 L of fluid started on antibiotics of meropenem and add vancomycin, initially her blood pressure was low plan to start norepinephrine drip however she responded to the 2 L of fluids initially and the antibiotic coverage norepinephrine was never initiated. She has maintained her blood pressure during her emergency department stay. Initially called and discussed the case with Dr. Bonilla at 1530, then discussed case with Dr. Dolan at 1630 hospitalist on-call [facility] Dr. Dolan kindly excepted the patient for transfer to a medical bed will be transported via EMS ground. This note was dictated using [employer] voice recognition software please call with any questions on syntax or grammar. <Gentry Valentine - Last Filed: 10/05/21 22:39> ED HPI GENERAL MEDICAL PROBLEM generalized Pain Score (Numeric/FACES): 5 Course - Vital Signs Last Recorded V/S: Last Vital Signs Temp 96.8 F L 10/05/21 16:00 Pulse 90 10/05/21 18:37 Resp 20 10/05/21 18:37 BP 127/71 10/05/21 18:37 Pulse Ox 93 L 10/05/21 18:37 - Orders/Labs/Meds Orders: Active Orders 24 hr Category Date Time Status Admission Status [Patient Status] [ADT] Routine ADT 10/05/21 07:05 Active Labs: Laboratory Tests 10/04/21 10/04/21 10/04/21 Range/Units 10:03 10:05 10:05 WBC 21.4 H (4.5-11.0) K/uL RBC 3.77 (3.30-5.50) M/uL Hgb 12.4 (12.0-15.0) g/dL Hct 36.6 (36.0-48.0) % MCV 97 (80-98) fL MCH 33 H (27-31) pg MCHC 34 (32-36) % Plt Count 225 (150-400) K/uL Neut % (Auto) 82.9 H (36-66) % Lymph % (Auto) 6.0 L (24-44) % Campbell % (Auto) 8.7 H (2-6) % Eos % (Auto) 2.0 (2-4) % Baso % (Auto) 0.4 (0-1) % Add Manual Diff Neutrophils % (Manual) (36-66) % Band Neutrophils % (5-11) % Lymphocytes % (Manual) (24-44) % Monocytes % (Manual) (2-6) % Eosinophils % (Manual) (2-4) % Puncture Site ABG pH (7.350-7.450) ABG pCO2 (35.0-42.0) mmHg ABG pO2 (75.0-100.0) mmHg ABG HCO3 (22.0-26.0) mmol/L ABG Total CO2 (21.0-25.0) mmol/L ABG O2 Saturation (95.0-98.0) % ABG O2 Content (15.0-23.0) %vol ABG Base Excess mm/L ABG Hemoglobin (12.0-16.0) g/dL ABG Oxyhemoglobin % ABG Carboxyhemoglobin (0.0-1.6) % ABG Methemoglobin % Ramy Test O2 Delivery Device Oxygen Flow Rate L Sodium 141 (140-148) mmol/L Potassium 4.8 (3.6-5.2) mmol/L Chloride 104 (100-108) mmol/L Carbon Dioxide 26 (21-32) mmol/L Anion Gap 11.5 (5.0-14.0) mmol/L BUN 7 (7-18) mg/dL Creatinine 0.7 (0.6-1.0) mg/dL Est Cr Clr Drug Dosing 93.25 mL/min Estimated GFR (MDRD) > 60 (>60) Glucose 124 H (74-106) mg/dL POC Glucose (74-106) mg/dL Lactic Acid (0.4-2.0) mmol/L Calcium 8.9 (8.5-10.1) mg/dL Total Bilirubin 0.9 D (0.2-1.0) mg/dL AST 34 (15-37) U/L ALT 32 (12-78) U/L Alkaline Phosphatase 86 (46-116) U/L Troponin I < 0.017 (0.000-0.056) ng/mL C-Reactive Protein (0.0-0.3) mg/dL NT-Pro-B Natriuret Pep (5-125) pg/mL Total Protein 6.1 L (6.4-8.2) g/dL Albumin 2.7 L (3.4-5.0) g/dL Globulin 3.4 (2.3-3.5) g/dL Albumin/Globulin Ratio 0.8 L (1.2-2.2) Procalcitonin ng/mL Influenza Type A RNA Negative (NEGATIVE) RSV RNA (INAAT) Negative (NEGATIVE) Influenza Type B RNA Negative (NEGATIVE) SARS-CoV-2 RNA (BAILEY) Negative (NEGATIVE) 10/04/21 10/04/21 10/04/21 Range/Units 10:05 15:34 15:34 WBC (4.5-11.0) K/uL RBC (3.30-5.50) M/uL Hgb (12.0-15.0) g/dL Hct (36.0-48.0) % MCV (80-98) fL MCH (27-31) pg MCHC (32-36) % Plt Count (150-400) K/uL Neut % (Auto) (36-66) % Lymph % (Auto) (24-44) % Campbell % (Auto) (2-6) % Eos % (Auto) (2-4) % Baso % (Auto) (0-1) % Add Manual Diff Neutrophils % (Manual) (36-66) % Band Neutrophils % (5-11) % Lymphocytes % (Manual) (24-44) % Monocytes % (Manual) (2-6) % Eosinophils % (Manual) (2-4) % Puncture Site ABG pH (7.350-7.450) ABG pCO2 (35.0-42.0) mmHg ABG pO2 (75.0-100.0) mmHg ABG HCO3 (22.0-26.0) mmol/L ABG Total CO2 (21.0-25.0) mmol/L ABG O2 Saturation (95.0-98.0) % ABG O2 Content (15.0-23.0) %vol ABG Base Excess mm/L ABG Hemoglobin (12.0-16.0) g/dL ABG Oxyhemoglobin % ABG Carboxyhemoglobin (0.0-1.6) % ABG Methemoglobin % Ramy Test O2 Delivery Device Oxygen Flow Rate L Sodium (140-148) mmol/L Potassium (3.6-5.2) mmol/L Chloride (100-108) mmol/L Carbon Dioxide (21-32) mmol/L Anion Gap (5.0-14.0) mmol/L BUN (7-18) mg/dL Creatinine (0.6-1.0) mg/dL Est Cr Clr Drug Dosing mL/min Estimated GFR (MDRD) (>60) Glucose (74-106) mg/dL POC Glucose (74-106) mg/dL Lactic Acid 2.2 H (0.4-2.0) mmol/L Calcium (8.5-10.1) mg/dL Total Bilirubin (0.2-1.0) mg/dL AST (15-37) U/L ALT (12-78) U/L Alkaline Phosphatase (46-116) U/L Troponin I (0.000-0.056) ng/mL C-Reactive Protein 16.72 H (0.0-0.3) mg/dL NT-Pro-B Natriuret Pep 55 (5-125) pg/mL Total Protein (6.4-8.2) g/dL Albumin (3.4-5.0) g/dL Globulin (2.3-3.5) g/dL Albumin/Globulin Ratio (1.2-2.2) Procalcitonin ng/mL Influenza Type A RNA (NEGATIVE) RSV RNA (INAAT) (NEGATIVE) Influenza Type B RNA (NEGATIVE) SARS-CoV-2 RNA (BAILEY) (NEGATIVE) 10/04/21 10/04/21 10/05/21 Range/Units 15:34 19:30 07:20 WBC 18.2 H (4.5-11.0) K/uL RBC 3.71 (3.30-5.50) M/uL Hgb 11.9 L (12.0-15.0) g/dL Hct 35.9 L (36.0-48.0) % MCV 97 (80-98) fL MCH 32 H (27-31) pg MCHC 33 (32-36) % Plt Count 265 (150-400) K/uL Neut % (Auto) (36-66) % Lymph % (Auto) (24-44) % Campbell % (Auto) (2-6) % Eos % (Auto) (2-4) % Baso % (Auto) (0-1) % Add Manual Diff Yes Neutrophils % (Manual) 87 H (36-66) % Band Neutrophils % 3 L (5-11) % Lymphocytes % (Manual) 5 L (24-44) % Monocytes % (Manual) 4 (2-6) % Eosinophils % (Manual) 1 L (2-4) % Puncture Site ABG pH (7.350-7.450) ABG pCO2 (35.0-42.0) mmHg ABG pO2 (75.0-100.0) mmHg ABG HCO3 (22.0-26.0) mmol/L ABG Total CO2 (21.0-25.0) mmol/L ABG O2 Saturation (95.0-98.0) % ABG O2 Content (15.0-23.0) %vol ABG Base Excess mm/L ABG Hemoglobin (12.0-16.0) g/dL ABG Oxyhemoglobin % ABG Carboxyhemoglobin (0.0-1.6) % ABG Methemoglobin % Ramy Test O2 Delivery Device Oxygen Flow Rate L Sodium (140-148) mmol/L Potassium (3.6-5.2) mmol/L Chloride (100-108) mmol/L Carbon Dioxide (21-32) mmol/L Anion Gap (5.0-14.0) mmol/L BUN (7-18) mg/dL Creatinine (0.6-1.0) mg/dL Est Cr Clr Drug Dosing mL/min Estimated GFR (MDRD) (>60) Glucose (74-106) mg/dL POC Glucose (74-106) mg/dL Lactic Acid 0.8 (0.4-2.0) mmol/L Calcium (8.5-10.1) mg/dL Total Bilirubin (0.2-1.0) mg/dL AST (15-37) U/L ALT (12-78) U/L Alkaline Phosphatase (46-116) U/L Troponin I (0.000-0.056) ng/mL C-Reactive Protein (0.0-0.3) mg/dL NT-Pro-B Natriuret Pep (5-125) pg/mL Total Protein (6.4-8.2) g/dL Albumin (3.4-5.0) g/dL Globulin (2.3-3.5) g/dL Albumin/Globulin Ratio (1.2-2.2) Procalcitonin 0.05 ng/mL Influenza Type A RNA (NEGATIVE) RSV RNA (INAAT) (NEGATIVE) Influenza Type B RNA (NEGATIVE) SARS-CoV-2 RNA (BAILEY) (NEGATIVE) 10/05/21 10/05/21 10/05/21 Range/Units 07:20 15:45 17:39 WBC (4.5-11.0) K/uL RBC (3.30-5.50) M/uL Hgb (12.0-15.0) g/dL Hct (36.0-48.0) % MCV (80-98) fL MCH (27-31) pg MCHC (32-36) % Plt Count (150-400) K/uL Neut % (Auto) (36-66) % Lymph % (Auto) (24-44) % Campbell % (Auto) (2-6) % Eos % (Auto) (2-4) % Baso % (Auto) (0-1) % Add Manual Diff Neutrophils % (Manual) (36-66) % Band Neutrophils % (5-11) % Lymphocytes % (Manual) (24-44) % Monocytes % (Manual) (2-6) % Eosinophils % (Manual) (2-4) % Puncture Site Lt radial ABG pH 7.360 (7.350-7.450) ABG pCO2 49.5 H (35.0-42.0) mmHg ABG pO2 82.2 (75.0-100.0) mmHg ABG HCO3 27.2 H (22.0-26.0) mmol/L ABG Total CO2 25.3 H (21.0-25.0) mmol/L ABG O2 Saturation 95.6 (95.0-98.0) % ABG O2 Content 14.3 L (15.0-23.0) %vol ABG Base Excess 1.8 mm/L ABG Hemoglobin 10.8 L (12.0-16.0) g/dL ABG Oxyhemoglobin 93.3 % ABG Carboxyhemoglobin 1.5 (0.0-1.6) % ABG Methemoglobin 0.9 % Ramy Test Pass O2 Delivery Device Nasal cannula Oxygen Flow Rate 8.0 L Sodium 139 L (140-148) mmol/L Potassium 3.9 (3.6-5.2) mmol/L Chloride 103 (100-108) mmol/L Carbon Dioxide 27 (21-32) mmol/L Anion Gap 12.9 (5.0-14.0) mmol/L BUN 6 L (7-18) mg/dL Creatinine 0.7 (0.6-1.0) mg/dL Est Cr Clr Drug Dosing 93.25 mL/min Estimated GFR (MDRD) > 60 (>60) Glucose 129 H (74-106) mg/dL POC Glucose 123 H (74-106) mg/dL Lactic Acid (0.4-2.0) mmol/L Calcium 8.4 L (8.5-10.1) mg/dL Total Bilirubin (0.2-1.0) mg/dL AST (15-37) U/L ALT (12-78) U/L Alkaline Phosphatase (46-116) U/L Troponin I (0.000-0.056) ng/mL C-Reactive Protein (0.0-0.3) mg/dL NT-Pro-B Natriuret Pep (5-125) pg/mL Total Protein (6.4-8.2) g/dL Albumin (3.4-5.0) g/dL Globulin (2.3-3.5) g/dL Albumin/Globulin Ratio (1.2-2.2) Procalcitonin ng/mL Influenza Type A RNA (NEGATIVE) RSV RNA (INAAT) (NEGATIVE) Influenza Type B RNA (NEGATIVE) SARS-CoV-2 RNA (BAILEY) (NEGATIVE) Meds: Medications Discontinued Medications Generic Name Dose Route Start Last Admin Trade Name Freq PRN Reason Stop Dose Admin Albuterol/Ipratropium 3 ml 10/04/21 10:03 10/04/21 10:22 Albuterol/Ipratropium 3.0-0.5 Mg/3 Ml Neb Soln NEB 10/04/21 10:04 3 ml ONETIME ONE Administration Alprazolam 1 mg 10/05/21 09:00 10/05/21 14:14 Alprazolam 0.5 Mg Tab PO 1 mg TID LESLEY Administration Ascorbic Acid 500 mg 10/05/21 08:00 10/05/21 08:19 Ascorbic Acid 500 Mg Tab PO 500 mg DAILY@0800 LESLEY Administration Cholecalciferol 25 mcg 10/05/21 08:00 10/05/21 08:19 Cholecalciferol (Vitamin D3) 25 Mcg Tab PO 25 mcg DAILY@0800 LESLEY Administration Citalopram Hydrobromide 40 mg 10/05/21 09:00 10/05/21 08:17 Citalopram 20 Mg Tab PO 40 mg DAILY LESLEY Administration Estradiol 1.5 mg 10/05/21 09:00 10/05/21 08:17 Estradiol 0.5 Mg Tab PO 1.5 mg DAILY LESLEY Administration Gabapentin 800 mg 10/05/21 09:00 10/05/21 14:14 Gabapentin 400 Mg Cap PO 800 mg TID LESLEY Administration Heparin Sodium (Porcine) 20 units 10/04/21 16:00 10/04/21 16:10 Heparin Sodium 100 Units/Ml 5 Ml Syringe IVPUSH 10/04/21 16:01 20 units ONETIME ONE Administration Heparin Sodium (Porcine) Confirm 10/05/21 07:24 Heparin Sodium 100 Units/Ml 5 Ml Syringe Administered 10/05/21 07:25 Dose 500 units .ROUTE .STK-MED ONE Heparin Sodium (Porcine) Confirm 10/05/21 14:27 Heparin Sodium 100 Units/Ml 5 Ml Syringe Administered 10/05/21 14:28 Dose 500 units .ROUTE .STK-MED ONE Heparin Sodium (Porcine) 500 units 10/05/21 15:17 Heparin Sodium 100 Units/Ml 5 Ml Syringe FLUSH ASDIRECTED PRN lines Lactated Ringer's 1,000 mls @ 999 mls/hr 10/04/21 14:43 10/04/21 15:14 Ringers, Lactated IV 10/04/21 15:43 999 mls/hr BOLUS ONE Administration Meropenem 1 gm/ Sodium 100 mls @ 200 mls/hr 10/04/21 15:00 10/05/21 04:05 Chloride IV 200 mls/hr Q12H LESLEY Administration Vancomycin HCl 2 gm/ Sodium 500 mls @ 250 mls/hr 10/04/21 16:00 10/04/21 15:59 Chloride IV 10/04/21 17:59 250 mls/hr ONETIME ONE Administration Vancomycin HCl 1.75 gm/ Sodium 250 mls @ 166.667 mls/hr 10/05/21 04:00 10/05/21 15:19 Chloride IV 166.667 mls/hr Q12H LESLEY Administration Norepinephrine Bitartrate 4 mg 250 mls @ 7.5 mls/hr 10/04/21 18:45 / Dextrose/Water IV TITRATE LESLEY Protocol 2 MCG/MIN Sodium Chloride 100 mls @ 3.5 mls/sec 10/04/21 18:45 Normal Saline IV ASDIRECTED LESLEY Meropenem 1 gm/ Sodium 100 mls @ 200 mls/hr 10/05/21 12:00 10/05/21 12:00 Chloride IV 200 mls/hr Q8H LESLEY Administration Sodium Chloride 100 mls @ 3.5 mls/sec 10/05/21 14:15 10/05/21 15:05 Normal Saline IV 10/05/21 14:16 4 mls/sec ASDIRECTED LESLEY Administration Ibuprofen 800 mg 10/05/21 07:00 10/05/21 08:30 Ibuprofen 800 Mg Tab PO 800 mg Q8HR PRN Administration Pain (mild 1-3) Iopamidol 100 ml 10/04/21 18:45 Iopamidol 755 Mg/Ml 100 Ml Bottle IV . DIRECTED LESLEY Iopamidol 100 ml 10/05/21 14:15 10/05/21 15:05 Iopamidol 755 Mg/Ml 100 Ml Bottle IV 10/05/21 14:16 100 ml . DIRECTED LESLEY Administration Lidocaine/Epinephrine 0 ml 10/04/21 16:00 10/04/21 16:10 Lidocaine 1% With Epinephrine 1:100,000 50 Ml Mdv INJECT 10/04/21 16:01 50 ml ONETIME ONE Administration Metformin HCl 500 mg 10/05/21 08:00 10/05/21 17:12 Metformin 500 Mg Tab PO Not Given BIDMEALS LESLEY Morphine Sulfate 3 mg 10/04/21 15:47 10/04/21 16:09 Morphine 4 Mg/Ml Syringe IVPUSH 10/04/21 15:48 3 mg ONETIME ONE Administration Morphine Sulfate 1 mg 10/04/21 16:48 10/04/21 16:55 Morphine 2 Mg/Ml Syringe IVPUSH 10/04/21 16:49 1 mg ONETIME ONE Administration Morphine Sulfate 2 mg 10/05/21 00:11 10/05/21 04:03 Morphine 2 Mg/Ml Syringe IVPUSH 2 mg Q4H PRN Administration Pain Morphine Sulfate 2 mg 10/05/21 06:59 10/05/21 18:38 Morphine 2 Mg/Ml Syringe IVPUSH 2 mg Q1H PRN Administration Pain Multivitamins/Minerals 1 tab 10/05/21 09:00 10/05/21 08:19 Multivitamins With Iron/Calcium/Folic Acid/Minerals Tab PO 1 tab DAILY LESLEY Administration Dulaglutide [ 0.75 mg 10/09/21 09:00 Trulicity] 0.75 Mg/0 SQ .5 Ml Pen.Injctr) ( Th@0900 LESLEY Ptom) Non-Formulary Medication 20 mg 10/05/21 09:00 Piroxicam [Piroxicam] PO DAILY LESLEY Olanzapine 15 mg 10/05/21 09:00 10/05/21 08:20 Olanzapine 5 Mg Tab PO 15 mg BID LESLEY Administration Pantoprazole Sodium 40 mg 10/05/21 07:30 10/05/21 08:19 Pantoprazole 40 Mg Tab.Cr PO 40 mg ACBREAKFAST LESLEY Administration Clozapine 100mg Tab 0 each 10/05/21 21:00 (Ptom) PO BEDTIME LESLEY Ropinirole HCl 1 mg 10/05/21 21:00 Ropinirole 1 Mg Tab PO BEDTIME LESLEY Sodium Chloride 10 ml 10/04/21 18:43 10/05/21 04:06 Sodium Chloride 0.9% 10 Ml Syringe FLUSH 10/04/21 18:44 10 ml ONETIME ONE Administration Sodium Chloride 10 ml 10/05/21 14:14 10/05/21 15:05 Sodium Chloride 0.9% 10 Ml Syringe FLUSH 10/05/21 14:15 10 ml ONETIME ONE Administration Tizanidine HCl 2 mg 10/05/21 09:00 10/05/21 14:15 Tizanidine 2 Mg Tab PO 2 mg TID LESLEY Administration Zinc Sulfate 220 mg 10/05/21 09:00 10/05/21 08:20 Zinc Sulfate 220 Mg Cap PO 220 mg DAILY LESLEY Administration - Re-Assessments/Exams Free Text/Narrative Re-Assessment/Exam: 10/05/21 03:02 Care turned over from Dr. Vallejor while waiting for transfer hospital. Initially look like she would need a Levophed drip which was ordered by Dr. Hameed but prior to starting that she stabilized and it was held. She did need 2 mg of IV morphine for some back discomfort but otherwise rested quietly through most of the night, repeat lactic acid was normal at 0.8. Sepsis Event Note (ED) - Focused Exam Vital Signs: Vital Signs Temp Pulse Resp BP Pulse Ox 10/05/21 18:37 90 20 127/71 93 L 10/05/21 17:11 80 20 103/69 96 10/05/21 16:00 96.8 F L 80 20 106/66 96 10/05/21 14:00 89 16 102/62 96 10/05/21 11:52 96.8 F L 20 131/74 96
--- NOTE | 2021-10-04 11:06 | CRLCR ---
For Patients: As a result of the Century Cures Act, medical imaging exams and procedure reports are released immediately into your electronic medical record. You may view this report before your referring provider. If you have questions, please contact your health care provider. Indication: Shortness of breath. Technique: AP portable view of the chest. Comparison: September 26, 2021. Findings: The heart is normal in size. Patchy bilateral lower lobe opacities are identified. No pleural effusion or pneumothorax is identified. Impression: Patchy bilateral lower lobe opacities. This is unchanged since September 26, 2021 Dictated by Jocelin Bravo MD @ 10/04/2021 11:03:52 AM (Electronically Signed)
[2021-10-04 11:43] LABS: CORONAVIRUS COVID-19 NAA NEGATIVE (NEGATIVE)
[2021-10-04] MEDS ORDERED: Meropenem 1 GM in Sodium Chloride 0.9% 100 ML IV SCH (13:30)
[2021-10-04] MEDS ORDERED: Lactated Ringers 1,000 ML IV ONE (14:43)
[2021-10-04] MEDS: Meropenem 1 GM in Sodium Chloride 0.9% 100 ML IV SCH (15:13)
[2021-10-04] MEDS ORDERED: Morphine 4 MG/ML Syringe IVPUSH ONE (15:47)
[2021-10-04] MEDS ORDERED: Vancomycin 2 GM in Sodium Chloride 0.9% 500 ML IV ONE (16:00)
[2021-10-04] MEDS ORDERED: Lidocaine 1% with EPINEPHrine 1:100,000 50 ML MDV INJECT ONE (16:00)
[2021-10-04] MEDS ORDERED: Morphine 2 MG/ML SYRINGE IVPUSH ONE (16:48)
[2021-10-04] MEDS ORDERED: Sodium Chloride 0.9% 10 ML Syringe FLUSH ONE (18:43)
[2021-10-04] MEDS ORDERED: Sodium Chloride 0.9% 100 ML IV SCH (18:45)
[2021-10-04] MEDS ORDERED: Iopamidol 755 Mg/ML 100 ML Bottle IV SCH (18:45)
[2021-10-04] MEDS ORDERED: Norepinephrine 4 MG in Dextrose 5% in Water 246 ML IV SCH ×2 (18:45)
[2021-10-05] MEDS: Morphine 2 MG/ML SYRINGE IVPUSH PRN ×5 (00:16→18:38)
[2021-10-05] MEDS: Meropenem 1 GM in Sodium Chloride 0.9% 100 ML IV SCH (04:05)
[2021-10-05] MEDS ORDERED: Ibuprofen 800 MG Tab PO PRN (07:00)
[2021-10-05] MEDS ORDERED: Pantoprazole 40 MG Tab.CR PO SCH (07:30)
[2021-10-05] MEDS ORDERED: Ascorbic Acid 500 MG Tab PO SCH (08:00)
[2021-10-05] MEDS ORDERED: Cholecalciferol (Vitamin D3) 25 MCG Tab PO SCH (08:00)
[2021-10-05] MEDS: Gabapentin 400 MG Cap PO SCH ×2 (08:18→14:14)
[2021-10-05] MEDS: metFORMIN 500 MG Tab PO SCH ×3 (08:18→17:12)
[2021-10-05] MEDS: tiZANidine 2 MG Tab PO SCH ×2 (08:19→14:15)
[2021-10-05] MEDS: ALPRAZolam 0.5 MG Tab PO SCH ×2 (08:29→14:14)
[2021-10-05] MEDS ORDERED: [UNRECOGNIZED DRUG - OTHER] PO SCH (09:00)
[2021-10-05] MEDS ORDERED: Zinc Sulfate 220 MG Cap PO SCH (09:00)
[2021-10-05] MEDS ORDERED: Non-Formulary Medication 1 Each (Omeprazole [Omeprazole] 20 MG Capsule.Dr) PO SCH (09:00)
[2021-10-05] MEDS ORDERED: PIROXICAM 20 MG PO SCH (09:00)
[2021-10-05] MEDS ORDERED: Non-Formulary Medication 1 Each (Citalopram Hydrobromide [Celexa] 40 MG Tablet) PO SCH (09:00)
[2021-10-05] MEDS ORDERED: ALPRAZOLAM 1 MG PO SCH (09:00)
[2021-10-05] MEDS ORDERED: TIZANIDINE 2 MG PO SCH (09:00)
[2021-10-05] MEDS ORDERED: Non-Formulary Medication 1 Each (Olanzapine [Olanzapine] 15 MG Tablet) PO SCH (09:00)
[2021-10-05] MEDS ORDERED: Estradiol 0.5 MG Tab PO SCH (09:00)
[2021-10-05] MEDS ORDERED: Multivitamins with Iron/Calcium/Folic Acid/Minerals Tab PO SCH (09:00)
[2021-10-05] MEDS ORDERED: MULTIVIT WITH CALCIUM IRON MIN PO SCH (09:00)
[2021-10-05] MEDS ORDERED: OLANZapine 5 MG Tab PO SCH (09:00)
[2021-10-05] MEDS ORDERED: Non-Formulary Medication 1 Each (Metformin [Glucophage Xr] 500 MG Tab.Er) PO SCH (09:00)
[2021-10-05] MEDS ORDERED: Non-Formulary Medication 1 Each (Gabapentin [Neurontin] 600 MG Tablet) PO SCH (09:00)
[2021-10-05] MEDS ORDERED: Non-Formulary Medication 1 Each (Zinc [Zinc] 50 MG Tablet) PO SCH (09:00)
[2021-10-05] MEDS ORDERED: Citalopram 20 MG Tab PO SCH (09:00)
--- NOTE | 2021-10-05 11:05 | OR ---
DATE OF PROCEDURE: 10/04/2021 SURGEON: Abel Bejarano MD PROCEDURE: Internal jugular subclavian vein placement. COMPLICATIONS: None. VALVE FITTER: None. ANESTHETIC: Local. RISKS: Risks, benefits, alternatives, and limitations including but not limited to infection, bleeding, pneumothorax, chronic wounds, chronic pain, infection, and other risks not listed here were explained to the patient who wished to proceed. PROCEDURE IN DETAIL: The patient was placed in left lateral decubitus position. The patient was placed in reverse Trendelenburg with the head-down position. Using the 13 megahertz ultrasound probe, attempt was made to access the subclavian vein on the left side. This was small, and the patient had had multiple subclavian catheters placed. Therefore, as the attempt was made, this was discontinued, and attention was focused on internal jugular vein. All this area had been prepped and draped with chlorhexidine. Gloves and sterile gowns were also used along with mask and goggles. The 13 megahertz ultrasound probe was used. The needle was introduced, and dark blood was noted. This was exchanged with a wire. Ectopy was noted. The dilator was then introduced. The triple-lumen was then placed and sewed in with interrupted silk sutures. Chlorhexidine was then used to re-prep the skin. This was allowed to dry, and then dressings were applied. The patient tolerated the procedure well. Cursory postoperative x-ray, which the Radiology is yet to review did not show any gross pneumothoraces. Abel Bejarano MD /[id number]
[2021-10-05] MEDS ORDERED: Meropenem 1 GM in Sodium Chloride 0.9% 100 ML IV SCH (12:00)
[2021-10-05] MEDS ORDERED: Sodium Chloride 0.9% 10 ML Syringe FLUSH ONE (14:14)
[2021-10-05] MEDS ORDERED: Sodium Chloride 0.9% 100 ML IV SCH (14:15)
[2021-10-05] MEDS ORDERED: Iopamidol 755 Mg/ML 100 ML Bottle IV SCH (14:15)
--- NOTE | 2021-10-05 16:12 | CRLCT ---
For Patients: As a result of the Century Cures Act, medical imaging exams and procedure reports are released immediately into your electronic medical record. You may view this report before your referring provider. If you have questions, please contact your health care provider. INDICATION: Hypoxic TECHNIQUE: CT chest pulmonary angiogram acquired with IV contrast. COMPARISON: CT chest July 27, 2020 FINDINGS: No pulmonary embolism to the level of the 1st segmental branches. Trace bilateral pleural effusions. Several prominent mediastinal lymph nodes not significantly changed from 2020 exam. High-density material, presumably enteric contrast is visualized within the colon. Possible cholelithiasis. Poor inspiration on this exam. Diffuse ground-glass attenuation with multifocal patchy pulmonary opacities most prominent within the bilateral lower lobes. With air dense coalescing consolidations. IMPRESSION: Bilateral pulmonary infiltrates, severe within the bilateral lower lobes concerning for pneumonia. Trace bilateral pleural effusions. Prominent mediastinal lymph lymph nodes not significantly changed from 2019. Probable cholelithiasis. No pulmonary embolism to the level the 1st segmental branches. Evaluation beyond this point is difficulty due to poor visualization given patient body habitus. Please note that all CT scans at this facility use dose modulation, iterative reconstruction, and/or weight-based dosing when appropriate to reduce radiation dose to as low as reasonably achievable. Dictated by Michela Manrique MD @ 10/05/2021 4:12:09 PM (Electronically Signed)
[2021-10-05] MEDS ORDERED: CLOZAPINE 200 MG PO SCH (21:00)
[2021-10-05] MEDS ORDERED: CLOZAPINE 100MG TAB (PTOM) PO SCH (21:00)
[2021-10-05] MEDS ORDERED: rOPINIRole 1 MG Tab PO SCH (21:00)
--- NOTE | 2021-10-06 09:37 | CR ---
CHEST: Portable 10/04/2021 and 5:18 PM CLINICAL HISTORY:Central line placement COMPARISON:Earlier same day FINDINGS: A left ureter catheter is seen. Tip is in the superior vena cava brachycephalic junction region. There is no pneumothorax. There is patchy infiltrate in the right lower lobe. Impression: Interval placement of a left jugular catheter Persistent right lower lobe pneumonic infiltrate
[2021-10-09] MEDS ORDERED: DULAGLUTIDE 0.75 MG/0.5 ML SQ SCH (09:00)
== END 2021-10-05 19:28 ==
LOC: JP.ED 09:08
DX: J96.01 Acute respiratory failure with hypoxia (principal); J18.9 Pneumonia, unspecified organism; K21.9 Gastro-esophageal reflux disease without esophagitis; E78.00 Pure hypercholesterolemia, unspecified; I10 Essential (primary) hypertension; E11.9 Type 2 diabetes mellitus without complications; E66.9 Obesity, unspecified; Z68.41 Body mass index [BMI] 40.0-44.9, adult; Z88.2 Allergy status to sulfonamides; Z88.8 Allergy status to other drugs, medicaments and biological substances; Z88.5 Allergy status to narcotic agent; Z79.899 Other long term (current) drug therapy; Z79.84 Long term (current) use of oral hypoglycemic drugs; Z20.822 Contact with and (suspected) exposure to COVID-19
CPT/HCPCS: 0241U; 36415; 36556; 36600; 71045; 71275; 80048; 80053; 82803; 82947; 83605; 83880; 84145; 84484; 85025; 86140; 87040; 94640; 96365; 96366; 96367; 96375; 96376; 99285; A9270; J1642; J2185; J2270; J3370; J7040; J7050; J7120; Q9967; J7620-GY

== ENCOUNTER 2021-11-02 12:05 | Emergency (ER) | payer MEDICARE, MEDICAID ==
[2021-11-02] MEDS ORDERED: Ondansetron 4 MG/2 ML SDV IVPUSH ONE (12:57)
[2021-11-02] MEDS ORDERED: Sodium Chloride 0.9% 1,000 ML IV SCH (13:00)
--- NOTE | 2021-11-02 13:02 | EDM.PDOC ---
ED HPI GENERAL MEDICAL PROBLEM - General Chief Complaint: Respiratory Problem Stated Complaint: [facility] Time Seen by Provider: 11/02/21 13:02 Source of Information: Reports: Patient History Limitations: Reports: No Limitations - History of Present Illness INITIAL COMMENTS - FREE TEXT/NARRATIVE: pt arrived from a [facility] because she was mildly nauseated and she was more sob. . She was hospitalized 1 month ago with pneumonia. Onset: Today Duration: Hour(s):, Other (pt did have adequate o2 sats on arrival. ) Location: Reports: Chest Associated Symptoms: Reports: Shortness of Breath Generalized Pain Score (Numeric/FACES): 7 - Related Data Allergies Allergy/AdvReac Type Severity Reaction Status Date / Time divalproex sodium Allergy Swelling Verified 11/02/21 14:41 [From Depakote] haloperidol Allergy Other Verified 11/02/21 14:41 pork derived (porcine) Allergy Other Verified 11/02/21 14:41 risperidone Allergy Other Verified 11/02/21 14:41 Sulfa (Sulfonamide Allergy Hives Verified 11/02/21 14:41 Antibiotics) Home Meds: Home Meds OLANZapine [Olanzapine] 15 mg PO BID 07/23/20 [History] Omeprazole 20 mg PO DAILY 07/23/20 [History] cloZAPine [Clozapine] 100 mg PO BEDTIME 07/23/20 [History] estradioL [Estradiol] 1.5 mg PO DAILY 07/23/20 [History] rOPINIRole [Requip] 1 mg PO BEDTIME 07/23/20 [History] tiZANidine 2 mg PO TID 07/23/20 [History] lisinopriL [Prinivil] 2.5 mg PO BID 11/25/20 [History] Dulaglutide [Trulicity] 0.75 mg SQ WEEKLY 07/15/21 [History] polyethylene glycoL 3350 [MiraLAX] 17 gm PO DAILY 07/15/21 [History] Ascorbic Acid [Vitamin C] 500 mg PO DAILY@0800 #30 tablet 07/19/21 [Rx] Cholecalciferol (Vitamin D3) [Vitamin D3] 25 mcg PO DAILY@0800 #30 tablet 07/19/21 [Rx] Multivit with Calcium,Iron,Min [One Daily Women's] 1 each PO DAILY #30 tablet 07/19/21 [Rx] *Quercetin 250 mg PO DAILY 09/07/21 [History] ALPRAZolam [Alprazolam] 1 mg PO TID 09/07/21 [History] Gabapentin [Neurontin] 800 mg PO TID 09/07/21 [History] Piroxicam 20 mg PO DAILY 09/07/21 [History] Zinc 50 mg PO DAILY 09/07/21 [History] metFORMIN [Glucophage XR] 1,000 mg PO DAILY 09/07/21 [History] Citalopram Hydrobromide [Celexa] 40 mg PO DAILY 09/13/21 [History] levoFLOXacin [Levaquin] 750 mg PO DAILY #4 tab 10/01/21 [Rx] Ibuprofen [Motrin] 800 mg PO Q8HR PRN 10/02/21 [History] Past Medical History HEENT History: Reports: Impaired Vision Cardiovascular History: Reports: High Cholesterol, Hypertension Respiratory History: Reports: Intubation, Previous, Pneumonia, Recurrent Other Respiratory History: hospitalized with [id number] Gastrointestinal History: Reports: GERD Genitourinary History: Reports: Urinary Incontinence Musculoskeletal History: Reports: Other (See Below) Other Musculoskeletal History: plantar fascitis. chronic left shoulder painchronic right knee pain Psychiatric History: Reports: Bipolar, Depression, Psychosis, Schizophrenia, Suicide Attempt, Other (See Below) Other Psychiatric History: catatonia. insomnia Endocrine/Metabolic History: Reports: Diabetes, Type II, Obesity/BMI 30+, Vitamin D Deficiency Hematologic History: Reports: Other (See Below) Other Hematologic History: vitamin D deficency Dermatologic History: Reports: Other (See Below) Other Dermatologic History: rash - Infectious Disease History Infectious Disease History: Reports: Chicken Pox - Past Surgical History Head Surgeries/Procedures: Reports: None HEENT Surgical History: Reports: Tonsillectomy Respiratory Surgical History: Reports: Other (See Below) Other Respiratory Surgeries/Procedures: bronchoscopy Female Surgical History: Reports: Hysterectomy Musculoskeletal Surgical History: Reports: Arthroscopic Knee Social & Family History - Family History Family Medical History: No Pertinent Family History - Tobacco Use Tobacco Use Status *Q: Never Tobacco User - Caffeine Use Caffeine Use: Reports: Soda - Recreational Drug Use Recreational Drug Use: No ED ROS GENERAL - Review of Systems Review Of Systems: See Below Constitutional: Reports: No Symptoms HEENT: Reports: No Symptoms Respiratory: Reports: Shortness of Breath, Other (pt thinks she have gotten panicy. ) Cardiovascular: Reports: No Symptoms Endocrine: Reports: No Symptoms GI/Abdominal: Reports: No Symptoms, Nausea : Reports: No Symptoms Musculoskeletal: Reports: No Symptoms Skin: Reports: No Symptoms ED EXAM, GENERAL - Physical Exam Exam: See Below Free Text/Narrative:: pt arrived because a episode of sob. She did not have a fever. Her o2 sats remained stable. Exam Limited By: No Limitations General Appearance: Alert, No Apparent Distress Ears: Normal TMs Nose: Normal Inspection Throat/Mouth: Normal Inspection Head: Atraumatic Neck: Normal Inspection Respiratory/Chest: No Respiratory Distress, Other (o2 sats wer in the low 90s with 3 liters that she is normally on) Cardiovascular: Regular Rate, Rhythm GI/Abdominal: Soft, Non-Tender (Female) Exam: Deferred Rectal (Female) Exam: Deferred Back Exam: Normal Inspection Extremities: Normal Inspection Neurological: Alert, Oriented, Normal Cognition Course - Vital Signs Last Recorded V/S: Last Vital Signs Temp 36.5 C 11/02/21 12:07 Pulse 82 11/02/21 14:17 Resp 16 11/02/21 14:17 BP 114/64 11/02/21 14:17 Pulse Ox 96 11/02/21 14:17 - Orders/Labs/Meds Orders: Active Orders 24 hr Category Date Time Status Chest 2V [CR] Stat Exams 11/02/21 12:58 Taken CRP [C-REACTIVE PROTEIN] [CHEM] Stat Lab 11/02/21 13:20 Received Sodium Chloride 0.9% [Normal Saline] 1,000 ml Med 11/02/21 13:00 Active IV ASDIRECTED Medication Orders Sodium Chloride (Normal Saline) 1,000 mls @ 999 mls/hr IV ASDIRECTED LESLEY Last Admin: 11/02/21 14:18 Dose: 999 mls/hr Documented by: SHELL Labs: Laboratory Tests 11/02/21 11/02/21 11/02/21 Range/Units 13:20 13:20 14:28 WBC 14.2 H (4.5-11.0) K/uL RBC 3.98 (3.30-5.50) M/uL Hgb 12.8 (12.0-15.0) g/dL Hct 37.1 (36.0-48.0) % MCV 93 (80-98) fL MCH 32 H (27-31) pg MCHC 35 (32-36) % Plt Count 280 (150-400) K/uL Neut % (Auto) 73.9 H (36-66) % Lymph % (Auto) 16.6 L (24-44) % [place] % (Auto) 6.8 H (2-6) % Eos % (Auto) 2.0 (2-4) % Baso % (Auto) 0.7 (0-1) % Sodium 139 L (140-148) mmol/L Potassium 4.0 (3.6-5.2) mmol/L Chloride 101 (100-108) mmol/L Carbon Dioxide 29 (21-32) mmol/L Anion Gap 13.0 (5.0-14.0) mmol/L BUN 8 (7-18) mg/dL Creatinine 0.7 (0.6-1.0) mg/dL Est Cr Clr Drug Dosing 93.25 mL/min Estimated GFR (MDRD) > 60 (>60) Glucose 84 (74-106) mg/dL Calcium 9.0 (8.5-10.1) mg/dL Total Bilirubin 0.4 D (0.2-1.0) mg/dL AST 24 (15-37) U/L ALT 32 (12-78) U/L Alkaline Phosphatase 92 (46-116) U/L Total Protein 6.7 (6.4-8.2) g/dL Albumin 3.6 (3.4-5.0) g/dL Globulin 3.1 (2.3-3.5) g/dL Albumin/Globulin Ratio 1.2 (1.2-2.2) Urine Color Yellow (YELLOW) Urine Appearance Clear (CLEAR) Urine pH 7.0 (5.0-8.0) Ur Specific [place] 1.010 (1.008-1.030) Urine Protein Negative (NEGATIVE) mg/dL Urine Glucose (UA) Negative (NEGATIVE) mg/dL Urine Ketones Negative (NEGATIVE) mg/dL Urine Occult Blood Negative (NEGATIVE) Urine Nitrite Negative (NEGATIVE) Urine Bilirubin Negative (NEGATIVE) Urine Urobilinogen 0.2 (0.2-1.0) EU/dL Ur Leukocyte Esterase Negative (NEGATIVE) Urine RBC 0-5 (0-5) Urine WBC 0-5 (0-5) Ur Epithelial Cells Rare Amorphous Sediment Not seen Urine Bacteria Not seen Urine Mucus Not seen Meds: Medications Generic Name Dose Route Start Last Admin Trade Name Beverly PRN Reason Stop Dose Admin Sodium Chloride 1,000 mls @ 999 mls/hr 11/02/21 13:00 11/02/21 14:18 Normal Saline IV 999 mls/hr ASDIRECTED LESLEY Administration Discontinued Medications Generic Name Dose Route Start Last Admin Trade Name Beverly PRN Reason Stop Dose Admin Ondansetron HCl 4 mg 11/02/21 12:57 Ondansetron 4 Mg/2 Ml Sdv IVPUSH 11/02/21 12:58 ONETIME ONE - Re-Assessments/Exams Free Text/Narrative Re-Assessment/Exam: 11/02/21 15:31 chest xray looks much improved. Her wbc is borderline other labs look good. Departure - Departure Time of Disposition: 15:22 Disposition: Home, Self-Care 01 Condition: Fair Clinical Impression: SOB (shortness of breath), History of pneumonia - Discharge Information Referrals: PCP,None [Primary Care Provider] - Forms: ED Department Discharge Care Plan Goals: o2 sat montored closely and with 3 liter she did well, chest xry looks much improved. Lab work looked good. Urine was clear and free of infection. Pt will continue present meds. encourage fluids. continue o2 at 3 liters. Sepsis Event Note (ED) - Evaluation Sepsis Screening Result: No Definite Risk - Focused Exam Vital Signs: Vital Signs Temp Pulse Resp BP Pulse Ox 11/02/21 14:17 82 16 114/64 96 11/02/21 12:07 36.5 C 97 20 113/63 93 L - My Orders Last 24 Hours: My Active Orders 11/02/21 12:58 Chest 2V [CR] Stat 11/02/21 13:00 Sodium Chloride 0.9% [Normal Saline] 1,000 ml IV ASDIRECTED 11/02/21 13:20 CRP [C-REACTIVE PROTEIN] [CHEM] Stat - Assessment/Plan Last 24 Hours: My Active Orders 11/02/21 12:58 Chest 2V [CR] Stat 11/02/21 13:00 Sodium Chloride 0.9% [Normal Saline] 1,000 ml IV ASDIRECTED 11/02/21 13:20 CRP [C-REACTIVE PROTEIN] [CHEM] Stat
--- NOTE | 2021-11-03 15:07 | CR ---
CHEST: 2 view CLINICAL HISTORY:SOB, previous pneumonia COMPARISON:CT 10/05/2021 FINDINGS: The heart size, pulmonary vascularity and hilar structures are normal. No infiltrate effusion or pneumothorax is seen. IMPRESSION: No acute cardiopulmonary process.
== END 2021-11-02 17:54 | disposition home or self-care (01) ==
LOC: JP.ED 12:05
DX: R06.02 Shortness of breath (principal); I10 Essential (primary) hypertension; K21.9 Gastro-esophageal reflux disease without esophagitis; E11.9 Type 2 diabetes mellitus without complications; E66.9 Obesity, unspecified; Z68.41 Body mass index [BMI] 40.0-44.9, adult; Z88.8 Allergy status to other drugs, medicaments and biological substances; Z91.018 Allergy to other foods; Z88.2 Allergy status to sulfonamides; Z79.84 Long term (current) use of oral hypoglycemic drugs; Z79.899 Other long term (current) drug therapy
CPT/HCPCS: 36415; 71046; 80053; 81001; 85025; 86140; 99285; J7030